=== PATIENT | male | born 1950 | race Caucasian/White ===

== ENCOUNTER 2024-11-14 20:15 | Inpatient (IN) | payer MEDICARE, BC, SELFPAY ==
[2024-11-14 13:02] VITALS: BP 95/53
[2024-11-14 13:34] LABS: Hematocrit 41.2 % (39.0-52.0); Hemoglobin 14.3 g/dL (13.0-18.0); Mean Corp Hgb Conc. 34.7 g/dL (33.0-37.0); Mean Corpuscular Hgb 32.6 pg (27.0-31.0); Mean Corpuscular Volume 94.1 fL (80.0-94.0); Mean Platelet Volume 10.5 fL (7.4-10.4); Platelet Count 272 10^3/uL (130-400); Red Blood Cell Count 4.38 10^6/uL (4.70-6.10); Red Cell Dist. Width 14.2 % (11.5-14.5); White Blood Cell Count 30.4 10^3/uL (4.8-10.8)
[2024-11-14 13:47] LABS: ALT (SGPT) 17 U/L (0-50); AST (SGOT) 21 U/L (17-59); Albumin 4.3 g/dl (3.5-5.0); Alkaline Phosphatase 61 U/L (38-126); Blood Urea Nitrogen 26 mg/dl (9-20); Calcium 10.1 mg/dl (8.4-10.2); Carbon Dioxide 21 mmol/L (22-30); Chloride 106 mmol/L (98-107); Glucose 164 mg/dl (70-99); Lipase 30 U/L (23-300); Potassium 4.4 mmol/L (3.5-5.1); Sodium 137 mmol/L (135-145); Total Bilirubin 2.6 mg/dl (0.2-1.3); Total Protein 7.7 g/dl (6.3-8.2); eGFR 47.95
[2024-11-14 14:13] LABS: % Basophils 0.3 % (0-2); % Immature Granulocytes 0.7 % (0-0.5); % Lymphocytes 3.2 % (20.5-51.1); % Monocytes 3.5 % (1.7-9.3); % Neutrophils 92.3 % (42.2-75.2); Absolute Basophils 0.1 10^3/uL (0-0.2); Absolute Immature Granulocytes 0.2 10^3/uL (0-0.05); Absolute Monocytes 1.1 10^3/uL (0.1-0.6); Absolute Neutrophils 28.1 10^3/uL (1.4-6.5); Nucleated Red Blood Cells % 0 % (-)
--- NOTE | 2024-11-14 15:46 | ED.GENMED ---
History of Present Illness
General
Chief Complaint: Abdominal Pain
Source: patient
Exam Limitations: none
Time Seen by Provider: 11/14/24 14:48
Nursing documentation reviewed up to this point in time: agreed with
History of Present Illness
History of Present Illness:
Patient is a 74-year-old male past medical history of diverticulitis with colectomy done in August 2024 however tumor, prediabetes hypertension A-fib on Eliquis presents to the ER for left lower quadrant pain that woke him up around 1 AM. Patient
reports pain is now throughout the abdomen. He denies any fever chills nausea vomiting.
Review of Systems
Review of Systems
Allergies reviewed?: Yes
All Other Systems: ROS reviewed and negative except as documented in HPI and ROS
Constitutional: Reports no symptoms; Denies fever, fatigue or chills
Respiratory: Reports no symptoms
Cardiac: Reports no symptoms
ABD/GI: Reports abdominal pain; Denies nausea, vomiting or diarrhea
: Reports no symptoms
Musculoskeletal: Reports no symptoms
Skin: Reports no symptoms
Neurological: Reports no symptoms
Psychiatric: Reports no symptoms
Phy Exam
General Physical Exam
General Presentation: no apparent distress
General age: appears stated age
General Skin: warm and dry
General Habitus: normal
General Mental: alert
General Hydration: dry mucous membranes
Gastrointestinal Exam
Gastrointestinal Exam: soft and other (Tender throughout however worse in the left lower quadrant)
Neurological Exam
Neurological Exam: alert and oriented x3
Musculoskeletal Exam
Musculoskeletal Exam: full ROM
Skin Exam
Skin Exam: normal color and warm/dry
Psychiatric Exam
Psychiatric Exam: normal mood/affect
Course
Orders/Labs/Results
Orders:
Orders
11/14/24 13:15
Complete Blood Count/With Diff Urgent
Comprehensive Metabolic Panel Urgent
Lipase Urgent
11/14/24 15:52
0.9% Sodium Chloride 1000 ml [Nss] 1,000 ml IV BOLUS
11/14/24 16:02
Iohexol [Omnipaque] 50 ml .ROUTE .[facility]
11/14/24 16:04
CT Abd/pel W Iv And Oral Contr Urgent
Comment:
Reason For Exam: left sided abd pain hx of divertilulitis /resectio
Iohexol [Omnipaque] See Protocol PO NOW STA
11/14/24 18:57
Piperacillin/Tazo 3.375 Gram [Zosyn] 3.375 gram in 50 ml IV NOW
11/14/24 19:15
0.9% Sodium Chloride 1000 ml [Nss] 1,000 ml IV 150 mls/hr
Abnormal Lab Results
11/14/24
13:15
WBC 30.4 H 10^3/uL
(4.8-10.8)
RBC 4.38 L 10^6/uL
(4.70-6.10)
MCV 94.1 H fL
(80.0-94.0)
MCH 32.6 H pg
(27.0-31.0)
MPV 10.5 H fL
(7.4-10.4)
Abs Immat Gran (auto) 0.2 H 10^3/uL
(0-0.05)
Absolute Neuts (auto) 28.1 H 10^3/uL
(1.4-6.5)
Absolute Lymphs (auto) 1.0 L 10^3/uL
(1.2-3.4)
Absolute Monos (auto) 1.1 H 10^3/uL
(0.1-0.6)
Immature Gran % 0.7 H %
(0-0.5)
Neutrophils % 92.3 H %
(42.2-75.2)
Lymphocytes % 3.2 L %
(20.5-51.1)
Carbon Dioxide 21 L mmol/L
(22-30)
BUN 26 H mg/dl
(9-20)
Creatinine 1.5 H mg/dL
(0.7-1.3)
Glucose 164 H mg/dl
(70-99)
Total Bilirubin 2.6 H mg/dl
(0.2-1.3)
11/14/24 13:15
11/14/24 13:15
Vital Signs
Initial and Last Documented VS:
Initial Vital Signs
Temp Pulse Resp BP Pulse Ox
98.4 F 103 16 95/53 98
11/14/24 13:02 11/14/24 13:02 11/14/24 13:02 11/14/24 13:02 11/14/24 13:02
Last Documented Vital Signs
Temp Pulse Resp BP Pulse Ox
99.4 F 107 27 105/52 98
11/14/24 19:01 11/14/24 17:45 11/14/24 17:45 11/14/24 17:00 11/14/24 17:45
Automatic Riveting Machine Operator consulted with Physician
Automatic Riveting Machine Operator consulted with physician?: Yes
Name of Physician Consulted: Zandra
MDM/Problems Addressed
Differential Diagnosis Includes:
Not limited colitis diverticulitis
MDM/Problems Addressed:
As documented patient is a 74-year male with history of diverticulitis with resection this was done August 2024 at [facility]. He presented with left-sided abdominal pain which has spread throughout the abdomen. He is very tender to palpation.
He presents afebrile however his white count is elevated at 30,000. As per radiology patient does have free air on the CAT scan secondary to a perforated diverticulitis of the descending colon.
Patient was given fluids upon presentation. IV Zosyn ordered now. Will also order maintenance fluids. Patient did not want any pain medication and is clinically stable on exam. case d/c w/ DR De Paz.
Case reviewed with colorectal on-call who looked at scans and will take patient to the OR. Lactic ordered
Chronic conditions affecting care:
History of diverticulitis
*Radiology
Radiology exam reviewed: radiology read reviewed
*Pulse Oximetry
Patient hypoxic: no
*Critical Care Note
Total Time (30-74mins, 75-104mins- exclusive of procedures): Not Applicable
comment:
Critical care statement: A total of 35 minutes of critical care time was provided for this patient. This includes management of unstable vital signs, evaluation of the patient at bedside, reviewing the patient's pertinent medical records, discussion
with consultants, review of old EKGs and review of pertinent medical records. This time with separate from time utilized to perform the aforementioned documented procedures
Patient Management
Discussion with other providers: Software Integrator (Dr Sandoval )
ED Attending Note
-
Portions of this chart may have been created with voice recognition software.� Occasional wrong word or��sound alike� substitutions may have occurred due to the inherent limitations of voice recognition software.
Discharge Plan
Departure
Patient Disposition: OR
Date of Disposition: 11/14/24
Time of Disposition: 19:26
Admit to: OR
Presentation/result/management discussed w/ accepting MD/DO: Hospitalist
Patient with high blood pressure during this ER visit?: No
Condition: Fair
Discharge Problem:
Perforated diverticulitis
Prescriptions:
No Action
multivitamin Tablet
1 tab PO DAILY
digestive enzymes Tablet
1 tab PO DAILY
furosemide 40 mg Tablet
40 mg PO DAILY
ascorbic acid (vitamin C) [Vitamin C] 1,000 mg Tablet
1,000 mg PO DAILY
famotidine 40 mg Tablet
40 mg PO DAILY
famotidine [Pepcid] 40 mg Tablet
40 mg PO DAILY
cyanocobalamin (vitamin B-12) [Vitamin B-12] 1,000 mcg Tablet
1,000 mcg PO DAILY
simvastatin 20 mg Tablet
20 mg PO DAILY
metoprolol tartrate 50 mg Tablet
50 mg PO DAILY
aspirin 81 mg Tablet
81 mg PO DAILY
fluoxetine 20 mg Capsule
20 mg PO DAILY
loratadine [Claritin] 10 mg Tablet
10 mg PO DAILY PRN (Reason: allergies)
dutasteride 0.5 mg Capsule
0.5 mg PO DAILY
metoprolol tartrate 25 mg Tablet
25 mg PO HS
Eliquis 5 mg Tablet
5 mg PO BID
Gemtesa 75 mg Tablet
75 mg PO DAILY
Referrals:
Cristin Kan PA [Family Provider, Family Practice]
Interventions
Interventions:
*Risk Screen - Suicide Last Done: 11/14/24 13:02
*General Assessment Last Done: 11/14/24 17:48
*Neglect/Abuse Screening Last Done: 11/14/24 13:02
*ED- Fall Risk Assessment Last Done: 11/14/24 17:48
*ED COVID-19 Vaccine History Last Done: 11/14/24 17:48
GJ-Ichlxg-Gkksinufso Assessment Last Done: 11/14/24 17:47
Discharge Date and Time
Print Language: HUNGARIAN
[2024-11-14] MEDS: OMNIPAQUE 50 ML PO (16:09)
[2024-11-14] MEDS: NSS 1000 IV ×2 (16:09→19:06)
[2024-11-14 16:38] VITALS: BP 112/53
[2024-11-14 17:00] VITALS: BP 105/52
[2024-11-14 19:01] VITALS: BMI 36.8
[2024-11-14] MEDS: ZOSYN 50 IV (19:09)
--- NOTE | 2024-11-14 19:40 | HPS.HSE ---
Family Physician
-
Family Physician: SHEKHAR Quevedo
Chief Complaint
-
Abdominal pain
History of Present Illness
This is a 74-year-old with past medical history significant for atrial fibrillation on anticoagulation with apixaban, CHF with preserved EF, hypertension, prior history of PE, recent history of diverticulitis status post colectomy and reanastomosis,
BPH, GERD presenting to the emergency department with approximately 1 day of worsening abdominal pain.
Patient reports doing well up until last evening after a large meal. At around 1 AM he reported left lower quadrant abdominal pain that is recorded as severe and associated with chills. The pain seems to be send the lower in the abdomen at around
4 AM. He reported the chills but no diaphoresis. He did not measure a temperature at home. Denied any nausea or vomiting. He states that he thought maybe he had constipation because he has not had a bowel movement in over 24 hours. However the
pain worsened and he was brought into the emergency department. He has no urinary symptoms.
In the emergency department patient had a temp of 99.4, blood pressure was 100/50 with a pulse rate of 107 and was satting 98% on room air. Her white count was 30.4, normal platelets and hemoglobin. His electrolytes were within normal limits.
BUN/creatinine slightly elevated at 26 and 1.5 with a glucose of 164. Total bilirubin was 2.6. Rest of the LFTs and lipase were normal.
CT of the abdomen pelvis shows pneumoperitoneum indicating a perforated viscus. More localized gas and fluid in the left hemiabdomen lateral to the descending colon suggestive of a perforated diverticulitis.
Medical History
Past Medical History
Past Medical History: Reports Other
Additional Past Medical History:
Obstructive sleep apnea on CPAP
Atrial fibrillation on anticoagulation
Diverticulitis status post colectomy in August 2024
BPH
DVT
Pulmonary embolism
History of subdural hematoma status post surgery in
Past Surgical History: Reports Bowel Resection, Brain and Orthopedic (Left knee replacement)
Social History
Tobacco: Non-smoker
Alcohol: None
Drug: None
Personal:
Living: With Family
Family History
Family History: Not pertinent
Allergies / Home Medications
Allergies reflects when Allergies were last updated in [facility].
Home Medications with original date entered in [facility]
Allergy/Medication List:
Allergies
Allergy/AdvReac Type Severity Reaction Status Date / Time
No Known Allergies Allergy Unverified 11/14/24 13:02
Home Medications
apixaban 5 mg tablet (Eliquis) 5 mg PO BID 11/14/24
ascorbic acid (vitamin C) 1,000 mg tablet (Vitamin C) 1,000 mg PO DAILY 11/14/24
aspirin 81 mg tablet 81 mg PO DAILY 11/14/24
cyanocobalamin (vitamin B-12) 1,000 mcg tablet (Vitamin B-12) 1,000 mcg PO DAILY 11/14/24
digestive enzymes 1 tab PO DAILY 11/14/24
dutasteride 0.5 mg capsule 0.5 mg PO DAILY 11/14/24
famotidine 40 mg tablet 40 mg PO DAILY 11/14/24
famotidine 40 mg tablet (Pepcid) 40 mg PO DAILY 11/14/24
fluoxetine 20 mg capsule 20 mg PO DAILY 11/14/24
furosemide 40 mg tablet 40 mg PO DAILY 11/14/24
loratadine 10 mg tablet (Claritin) 10 mg PO DAILY PRN allergies 11/14/24
metoprolol tartrate 25 mg tablet 25 mg PO HS 11/14/24
metoprolol tartrate 50 mg tablet 50 mg PO DAILY 11/14/24
multivitamin 1 tab PO DAILY 11/14/24
simvastatin 20 mg tablet 20 mg PO DAILY 11/14/24
vibegron 75 mg tablet (Gemtesa) 75 mg PO DAILY 11/14/24
Review of Systems
-
Constitutional: Reports No Symptoms
EENT: Reports No Symptoms
Respiratory: Reports No Symptoms
Cardiac: Reports No Symptoms
Abdomen/GI: Reports Abdominal Pain
: Reports No Symptoms
Musculoskeletal: Reports No Symptoms
Skin: Reports No Symptoms
Neurological: Reports No Symptoms
Endocrine: Reports No Symptoms
Hematologic/Lymphatic: Reports No Symptoms
Psych: Reports No Symptoms
Physical Exam
Vital Signs
Vital Signs
Temp Pulse Resp BP Pulse Ox
99.4 F 107 27 105/52 98
11/14/24 19:01 11/14/24 17:45 11/14/24 17:45 11/14/24 17:00 11/14/24 17:45
Physical Exam
General: Well Developed, Well Nourished and No Apparent Distress
HEENT: NormoCephalic, Moist mucous membranes and Atraumatic
Respiratory: Clear
Cardiac: S1/S2 and Regular Rhythm; No Murmur or Rub
GI: Soft, Normal Bowel Sounds, Tender and Distended; No Organomegaly
Rectal: Deferred by Provider
Musculoskeletal: No Clubbing, No Cyanosis and No Edema
Skin: No Rash
Neuro: AO x 3 and Nonfocal/grossly intact
Laboratory Results
-
11/14/24 13:15
11/14/24 13:15
Laboratory Results
Lactic Acid Cancelled 11/14/24 19:30
Total Bilirubin 2.6 mg/dl (0.2-1.3) H 11/14/24 13:15
AST 21 U/L (17-59) 11/14/24 13:15
ALT 17 U/L (0-50) 11/14/24 13:15
Alkaline Phosphatase 61 U/L (38-126) 11/14/24 13:15
Lipase 30 U/L (23-300) 11/14/24 13:15
Data Reviewed
-
CT Scan: Report Reviewed by me
Lab Data: Labs Reviewed by me
Old Records: Reviewed
Impression/Plan
-
IMPRESSION:
74-year-old male with past medical history of atrial fibrillation on anticoagulation, prior pulmonary embolism and DVT, hypertension, CHF with preserved EF, SARAH on CPAP, BPH, recent episode of diverticulitis status post colectomy [facility] coming into the emergency department with 1 day of abdominal pain and was found to have a perforated diverticulitis. He is hemodynamically stable and afebrile at this time. Leukocytosis to 30. Remarkably well-appearing but tender to
palpation on examination. Images reviewed by surgery. Will be going to the OR very shortly.
PLAN:
Diverticulitis with perforated viscus - s/p exploratory laparotomy, takedown splenic flexure, drainage intra-abdominal abscess, creation end colostomy
- Perioperative and operative management per surgery
- sent to med/surg post op
- n.p.o for now
- blood cultures sent, specimen
- IV Zosyn continued
- maintenance fluids with D5 LR 75ml/hr
- Holding anticoagulation and aspirin till bleeding risk reassessed.
- Holding Lasix
- holding po medications for now
AFIB -sinus tachycardia at this time
-Holding p.o. medications, restart metop when tolerating po
-Holding Eliquis, restart anticoagulation after operative risk of bleeding assessed by surgery (usually 2 days after)
CHF -euvolemic
-Monitor for now, hold Lasix 40mg until tolerating p.o.
SARAH -
- CPAP HS
DVT PPX - SCD, AC on hold, restart Eliquis 2 days after procedure, if bleeding delays restart or intolerant of po can start lovenox for DVT PPX
Code status - Full Code
[2024-11-14 19:58] LABS: Lactic Acid 1.5 mmol/L (0.7-2.0)
--- NOTE | 2024-11-14 20:56 | CON.GS ---
Addendum entered and electronically signed by Sahil Sandoval MD 11/15/24 00:25:
Last dose eliquis this am
Original Note:
Consultation
-
Date/Time Consultation Performed: 11/14/24
Requesting Provider: Preet
Performing Provider: Jaime
Reason for Consultation: Perforated diverticulitis
Medical History
-
Chief Complaint: Abd pain
History of Present Illness:
74M with acute onset abd pain that began lst night. He has not had a BM for 3 days which is not normal for him. Pain localized to LLQ, no radiation, began 1AM. progressive and severe, a/w chills. Denies fever, denies n/v. No exacerbating or
relieving factors.
Past Medical History
Past Medical History: Other (Obstructive sleep apnea on CPAP Atrial fibrillation on anticoagulation Diverticulitis status post colectomy in August 2024 BPH DVT Pulmonary embolism History of subdural hematoma status post surgery in )
Past Surgical History: Bowel Resection (robotic sigmoidectomy), Brain (SDH) and Orthopedic (left knee)
Social History
Tobacco: Non-Smoker
Alcohol: None
Drug: None
Personal:
Family History
Family History: Reviewed & Noncontributory
Allergies / Home Medications
Allergy/AdvReac Type Severity Reaction Status Date / Time
No Known Allergies Allergy Unverified 11/14/24 13:02
�Medication �Instructions �Recorded �Confirmed �Type
apixaban 5 mg tablet (Eliquis) 5 mg PO BID 11/14/24 11/14/24 History
ascorbic acid (vitamin C) 1,000 mg 1,000 mg PO DAILY 11/14/24 11/14/24 History
tablet (Vitamin C)
aspirin 81 mg tablet 81 mg PO DAILY 11/14/24 11/14/24 History
cyanocobalamin (vitamin B-12) 1,000 mcg PO DAILY 11/14/24 11/14/24 History
1,000 mcg tablet (Vitamin B-12)
digestive enzymes 1 tab PO DAILY 11/14/24 11/14/24 History
dutasteride 0.5 mg capsule 0.5 mg PO DAILY 11/14/24 11/14/24 History
famotidine 40 mg tablet 40 mg PO DAILY 11/14/24 11/14/24 History
famotidine 40 mg tablet (Pepcid) 40 mg PO DAILY 11/14/24 11/14/24 History
fluoxetine 20 mg capsule 20 mg PO DAILY 11/14/24 11/14/24 History
furosemide 40 mg tablet 40 mg PO DAILY 11/14/24 11/14/24 History
loratadine 10 mg tablet (Claritin) 10 mg PO DAILY PRN allergies 11/14/24 11/14/24 History
metoprolol tartrate 25 mg tablet 25 mg PO HS 11/14/24 11/14/24 History
metoprolol tartrate 50 mg tablet 50 mg PO DAILY 11/14/24 11/14/24 History
multivitamin 1 tab PO DAILY 11/14/24 11/14/24 History
simvastatin 20 mg tablet 20 mg PO DAILY 11/14/24 11/14/24 History
vibegron 75 mg tablet (Gemtesa) 75 mg PO DAILY 11/14/24 11/14/24 History
Review of Systems
-
A 10 point review of systems was completed, and was negative except as per HPI.
Physical Exam
Vital Signs
Temp Pulse Resp BP Pulse Ox
99.4 F 107 27 105/52 98
11/14/24 19:01 11/14/24 17:45 11/14/24 17:45 11/14/24 17:00 11/14/24 17:45
11/13/24 11/14/24 11/15/24
06:59 06:59 06:59
Actual Weight 106.594 kg
Body Mass Index (BMI) 36.8
Lab Results
11/14/24 13:15
11/14/24 13:15
WBC 30.4 10^3/uL (4.8-10.8) H 11/14/24 13:15
Hgb 14.3 g/dL (13.0-18.0) 11/14/24 13:15
Hct 41.2 % (39.0-52.0) 11/14/24 13:15
Plt Count 272 10^3/uL (130-400) 11/14/24 13:15
Abs Immat Gran (auto) 0.2 10^3/uL (0-0.05) H 11/14/24 13:15
Neutrophils % 92.3 % (42.2-75.2) H 11/14/24 13:15
Physical Exam
General: Well Developed, Well Nourished and No Apparent Distress
GI: Soft, Tender (Left elvia abdmoen ttp without r/r/g) and Distended
Skin: Warm and Dry
Neuro: AO x 3
Psych: Calm
Data Reviewed
-
CT Scan: Image Personally Visualized and interpreted, Report Reviewed by me, Discussed with Physician, Discussed with Patient and Discussed with Family
Labs: Labs Reviewed by me, Discussed with Physician, Discussed with Patient and Discussed with Family
Assessment / Plan
-
74M with sepsis 2/2 perforated diverticulitis
Tmax 99.4F
HR [address] with moderate free air, descending colon perforation with air/fluid lateral to left colon
Last dose eliquis unknown
OCTOR for ex lap, sigmidectomy, creation end colostomy
Informed consent obtained
[2024-11-15] VITALS (13 sets, daily range): BP systolic 50–127; BP diastolic 47–73; BMI 37.7
--- NOTE | 2024-11-15 00:25 | W.IMMPOSTOP ---
Addendum entered and electronically signed by Sahil Sandoval MD 11/15/24 00:36:
Daughter updated in [facility]
Original Note:
Surgical Immed Post Op Note
-
Primary Surgeon: Jaime
Pre-op Diagnosis: Perforated diverticulitis
Post-op Diagnosis: Same
Procedure Performed: Exploratory laparotomy, takedown splenic flexure, drainage intra-abdominal abscess, creation end colostomy
Anesthesia Type: GETA
Specimen / Cultures: Descending colon and splenic flexure
Estimated Blood Loss: 25cc
Complications: None immediate
Op time: 150 mins
Operative Findings: 150cc yellow pus in the belly, no stool, irrigated; lateral descending colon perforation partially contained by abdominal wall; abscess cavity opened and irrigated; 2-0 prolene tag at sigmoid stump; scarring along lateral
avascular plane and challenging dissection with many small bleeders controlled with 2-0 silk sutures; proximal descending colon and splenic flexure taken with voyant; transverse colon mobilized off gastro-colic ligament, middle colic artery palpated
with good pulse, distal transverse colon end colostomy, thick abdominal wall; 19 fr suresh drain to left paracolic gutter; unable to pass ngt - deferred
--- NOTE | 2024-11-15 00:50 | SUR.PHASEI ---
Rec'd sleepy in bbed HOB elevated low fowlers by PACU, not responsive snoring, L roxanne with good wave form, correlates with cuff, hoffman to bsd cl yellow urine, SUSAN charged with dark red seriosang drainage, stoma pink
--- NOTE | 2024-11-15 01:08 | SUR.PHASEI ---
Arouses easily, oriented x 3 by RN, reassured, daughter in, vss, denies pain, discomfort
[2024-11-15] MEDS: D5LR 1000 IV (02:00)
[2024-11-15] MEDS: ZOSYN 50 IV ×4 (02:08→19:51)
[2024-11-15 07:43] LABS: Hematocrit 37.6 % (39.0-52.0); Hemoglobin 12.5 g/dL (13.0-18.0); Mean Corp Hgb Conc. 33.2 g/dL (33.0-37.0); Mean Corpuscular Hgb 32.2 pg (27.0-31.0); Mean Corpuscular Volume 96.9 fL (80.0-94.0); Mean Platelet Volume 10.7 fL (7.4-10.4); Platelet Count 213 10^3/uL (130-400); Red Blood Cell Count 3.88 10^6/uL (4.70-6.10); Red Cell Dist. Width 14.6 % (11.5-14.5); White Blood Cell Count 23.8 10^3/uL (4.8-10.8)
[2024-11-15 08:17] LABS: Blood Urea Nitrogen 25 mg/dl (9-20); Calcium 7.9 mg/dl (8.4-10.2); Carbon Dioxide 24 mmol/L (22-30); Chloride 107 mmol/L (98-107); Estimated Creatinine Clearance 61 ml/min; Glucose 215 mg/dl (70-99); Magnesium 2.2 mg/dl (1.6-2.3); Potassium 4.5 mmol/L (3.5-5.1); Sodium 136 mmol/L (135-145); eGFR > 60.00
--- NOTE | 2024-11-15 10:08 | W.PN.GS2 ---
Today's Communication / Plan
-
NPO/IVF/Pain control
Assessment / Plan
-
74 yo male with h/o AFIB on Eliquis presenting with perforated diverticulitis and sepsis (improved)
POD #0 ex lap, takedown of the splenic flexure with drainage of intraabdominal abscess and end colostomy creation
AFVSS, tachycardia resolved
Leukocytosis trending down
Mild acute blood loss anemia secondary to intraoperative losses
JOHN improving
--NPO until good bowel recovery
--Follow labs
--C/W hoffman catheter
--Analgesics scheduled and prn. Hold NSAIDs for now given JOHN on presentation
--C/W SUSAN drain
--C/W IV zosyn
--IVF with NSS. Hyperglycemia present on AM labs, will d/c D5LR
--OOB/Ambulate
--IS while awake
--Stoma nurse consult
--VTE ppx with lovenox/scds
Medical management as per primary team
Subjective Data
-
Date of Service: November 15, 2024
Patient seen and examined at bedside with Dr. Patel. Denies n/v. Pain with movement but manageable. Denies SOB.
Objective Data
-
Intake and Output
11/14/24 11/15/24 11/16/24
06:59 06:59 06:59
Intake Total 550 / 550 50 / 50
Output Total 370 / 370
Balance 180 / 180 50 / 50
Intake:
IV fluids (Total) 500 / 500
normosol 200 / 200
IV piggybacks 50 / 50 50 / 50
Output:
Drain Output (Total) 120 / 120
Middle Abdomen Celso-Loyd 120 / 120
Urine, Hoffman 250 / 250
Vital Signs
Temp Pulse Resp BP Pulse Ox
97.6 F 98 18 111/65 99
11/15/24 07:50 11/15/24 07:50 11/15/24 07:50 11/15/24 07:50 11/15/24 07:50
Lab Results
11/15/24 07:13
11/15/24 07:13
Calcium 7.9 mg/dl (8.4-10.2) L D 11/15/24 07:13
Magnesium 2.2 mg/dl (1.6-2.3) 11/15/24 07:13
Total Bilirubin 2.6 mg/dl (0.2-1.3) H 11/14/24 13:15
AST 21 U/L (17-59) 11/14/24 13:15
ALT 17 U/L (0-50) 11/14/24 13:15
Alkaline Phosphatase 61 U/L (38-126) 11/14/24 13:15
Total Protein 7.7 g/dl (6.3-8.2) 11/14/24 13:15
Albumin 4.3 g/dl (3.5-5.0) 11/14/24 13:15
Physical Exam
-
NAD
ABD softly distended, incisional tenderness
Midline dressing intact. SUSAN with SSF.
Stoma pink, viable. Some bloody drainge in appliance, no flatus noted
Patient has a hoffman catheter: Yes
Patient has a central line: No
[2024-11-15] MEDS: NSS IV ×2 (10:40→10:41)
[2024-11-15] MEDS: DILAUDID 0.5 MG IV (10:47)
[2024-11-15] MEDS: NSS 1000 IV ×2 (10:50→21:44)
[2024-11-15] MEDS: OFIRMEV 100 IV ×3 (10:51→21:43)
--- NOTE | 2024-11-15 12:17 | W.PN.HOSP.TC ---
Today's Communication/Plan
-
Continued IV fluids. Diet per surgery.
Continue with Zosyn. Add micafungin. Consult ID.
Restart anticoagulation when okay from surgical standpoint.
Assessment / Plan
Assessment / Plan
IMPRESSION:
74-year-old male with past medical history of atrial fibrillation on anticoagulation, prior pulmonary embolism and DVT, hypertension, CHF with preserved EF, SARAH on CPAP, BPH, recent episode of diverticulitis status [facility]omy [facility] into the emergency department with 1 day of abdominal pain and was found to have a perforated diverticulitis.
PLAN:
Acute diverticulitis with perforated colon- s/p exploratory laparotomy, takedown splenic flexure, drainage intra-abdominal abscess, creation end colostomy
- Postoperative surgical management per surgery
-Diet per surgery
- blood cultures sent, specimen
- Currently on IV Zosyn. 150 cc of pus noted per pulm note. I would add coverage for antifungal. Start micafungin. Consult ID
- maintenance fluids with D5 LR 75ml/hr
- Holding anticoagulation and aspirin till bleeding risk reassessed.
- Holding Lasix
- holding po medications for now
AFIB
-Rate control. Continue until
-Holding p.o. medications, restart metop when tolerating po
-Holding Eliquis, restart anticoagulation after operative risk of bleeding assessed by surgery
CHF -euvolemic
-Monitor for now, hold Lasix 40mg until tolerating p.o.
SARAH -
- CPAP HS
DVT PPX - SCD, AC on hold, restart Eliquis when okay from surgery but in meantime sequential teds
Discussed with daughter at bedside
Total time spent on today's encounter was 52 minutes which included time spent in counseling the patient/family regarding diagnosis and treatment plan as listed above, goals of care, and symptom management. Case was discussed with nursing staff,
specialists, and care coordinators/case management. All labs and imaging personally reviewed by me. Remainder the time spent in detailed review of previous records, lab data, imaging, and other medical provider documentation.
Code status - Full Code
Anticipated Discharge: > 48 hours
Subjective/Interval History
-
Date of Service: November 15, 2024
Pain not much postsurgery.
Denies any nausea vomiting.
Denies any fever or chills.
Denies any shortness of breath or chest pain.
Objective Data
-
Labs:
Laboratory Results
11/15/24
07:13
WBC 23.8 H
Hgb 12.5 L
Hct 37.6 L
Plt Count 213 D
Sodium 136
Potassium 4.5
Chloride 107
Carbon Dioxide 24
BUN 25 H
Creatinine 1.2
Glucose 215 H
Calcium 7.9 L D
Vital Signs:
Vital Signs
Temp Pulse Resp BP Pulse Ox
97.8 F 77 16 92/47 98
11/15/24 11:25 11/15/24 11:25 11/15/24 11:25 11/15/24 11:25 11/15/24 11:25
I&O
11/14/24 11/15/24 11/16/24
06:59 06:59 06:59
Intake Total 550 / 550 50 / 50
Output Total 370 / 370 240 / 240
Balance 180 / 180 -190 / -190
Review of Systems
-
EENT: Denies Sore Throat
Respiratory: Denies Cough
Neuro: Denies Dizzy
Physical Exam
-
General: Comfortable
HEENT: Moist Mucous Membranes
Respiratory: Clear to Auscultation and Non Labored Respirations; Negative Accessory Resp Muscle Use
Cardiac: S1/S2 and Irregular Rhythm; Negative Tachycardic
GI: Soft, Ostomy and Other (SUSAN drain noted); Negative Normal Bowel Sounds
Neuro: AO x 3
Data Reviewed
-
Labs: Labs Reviewed by me
[2024-11-15] MEDS: PROTONIX IV 40 MG IV (12:19)
[2024-11-15] MEDS: NSS (PRESERVATIVE FREE) 10 ML IV (12:20)
--- NOTE | 2024-11-15 12:53 | CM ---
Addendum entered by Ivonne Hercules 11/15/24 13:16:
Referral to [facility] forwarded.
Original Note:
Initial assessment completed with patient with daughter Tammy in room. Patient lives alone in a 2 story plus basement home with 9 steps to enter, B/B on . [employer] patient was independent in ADL's and ambulation. He does not use any DME but does have
2 RW, SPC, rollator and stair glide in the home. He does drive. No services in the home. He was in the [employer]. He does have HC-PO[facility]. Patient has 3 daughters as a support system. After discharge he will be going to daughter Mary's home at [address] in [place] [address] Garrett. Pharmacy is [facility] on [address] in [place]. Discharge POC: Home with DIANNA RN.
--- NOTE | 2024-11-15 14:00 | WOUNDNOTE ---
[facility] RN note: Patient s/p colostomy today. Stoma dark pink with some bloody drainage. Appliance intact. Instructed patient how to open and close pouch, cutting wafer, snap on wafer. Patient lives alone but will be staying with his daughter initially.
Patient signed [employer] secure ostomy starter kit auth fax form. Patient stated his daughter Tammy can be contacted for teaching if she is available. Plan appliance change on . Ostomy supplies (Baring wafer # [id number], [employer] seals and
Baring pouch # [id number]) and colostomy teaching folder given.
--- NOTE | 2024-11-15 15:11 | CON.ID ---
Consultation
-
Date/Time Consultation Requested: 11/15/2024 1217
Date/Time Consultation Performed: 11/15/2024 1440
Requesting Provider: Dr. Harman
Performing Provider: Dr. Ingram
Reason for Consultation: Perforated viscus
Chief Complaint / Past History
History of Present Illness
Sy Garcia is a 74-year-old man being evaluated at the request of Dr. Harman in regards to perforated abdominal viscus. History is obtained from chart review, along with patient interview.
The patient has a history of diverticulitis, and reports that he underwent elective sigmoid resection at [facility] on 08/16/2024. He reports that he did well in the postop period, and had no known complications.
More recently, he recalls eating dinner 3 days ago and feeling well. The next day he developed some chills, but no fevers. He reports feeling slightly constipated, but denied any abdominal pain. Early Friday morning he developed acute left lower
quadrant discomfort, he came to the ER later that afternoon. Workup in the ER revealed pneumoperitoneum, and the patient was taken to the OR and underwent a left hemicolectomy. IntraOp notes indicate 150 cc of pus recovered. The patient was
placed on empiric antibiotics, and Infectious Diseases asked to comment on further antimicrobial therapy.
At the present time patient reports he is feeling improved. He notes pain is controlled. He denies any fevers.
Past History
Additional Past Medical History:
CHF
SARAH (CPAP)
A-fib
Diverticulitis
BPH
DVT/PE
Hx subdural
Additional Past Surgical History:
Sigmoid colectomy (08/16/2024)
Brain surgery
Left total knee
Allergy History:
No Known Allergies Allergy (Unverified 11/14/24 13:02)
Medications Reviewed: Yes
Current Antibiotics:
Zosyn
Micafungin
Social History
Tobacco: Non-Smoker
Alcohol: None
Drug: None
Personal:
Living: With Family
Employment: Retired
Review of Systems
Vital Signs
Temp Pulse Resp BP Pulse Ox
97.8 F 77 16 92/47 98
11/15/24 11:25 11/15/24 11:25 11/15/24 11:25 11/15/24 11:25 11/15/24 11:25
Physical Exam
Physical Exam
Constitutional: No Acute Distress, Comfortable and Non-toxic
Eyes: No Conjunctival Hemorrhage and Sclera Anicteric
Oral: No Thrush; Negative No Ulcers
Cardiovascular: Regular Rate and S1/S2; Negative S3/S4
Pulmonary: Clear; Negative Wheezes, Rales or Rhonchi
Gastrointestinal: Soft, Tender, Non Distended and Decreased Bowel Sounds
Extremities: Negative Edema, Cyanosis or Erythema
Neurological: Awake and Alert
Psychological: Calm
.
Lab / Diagnostic Study Results
11/15/24 07:13
11/15/24 07:13
Abs Immat Gran (auto) 0.2 10^3/uL (0-0.05) H 11/14/24 13:15
Absolute Neuts (auto) 28.1 10^3/uL (1.4-6.5) H 11/14/24 13:15
Absolute Lymphs (auto) 1.0 10^3/uL (1.2-3.4) L 11/14/24 13:15
Absolute Monos (auto) 1.1 10^3/uL (0.1-0.6) H 11/14/24 13:15
Absolute Basos (auto) 0.1 10^3/uL (0-0.2) 11/14/24 13:15
Immature Gran % 0.7 % (0-0.5) H 11/14/24 13:15
Neutrophils % 92.3 % (42.2-75.2) H 11/14/24 13:15
Lymphocytes % 3.2 % (20.5-51.1) L 11/14/24 13:15
Monocytes % 3.5 % (1.7-9.3) 11/14/24 13:15
Eosinophils % 0.0 % (0-6) 11/14/24 13:15
Basophils % 0.3 % (0-2) 11/14/24 13:15
Lactic Acid Cancelled 11/14/24 23:45
Microbiology Results
Micro:
11/14/24 19:35 Blood Culture - Pending
Blood/Venous
11/14/24 19:35 Blood Culture - Pending
Blood/Venous
No abdominal cultures sent
Imaging:
11/14/2024 CT abdomen/pelvis: Pneumoretroperitoneum seen. More localized gas and fluid in the left hemiabdomen lateral to the descending colon suggestive of a perforated diverticulum. Please see full dictation for additional detail.
Assessment / Plan
Perforated viscus (colon)
- S/p ex lap; end colostomy
Leukocytosis
JOHN; improved
CHF
SARAH (CPAP)
A-fib
BPH
DVT/PE
Hx subdural
Recommendations:
Continue with empiric Zosyn and micafungin for the present.
Trend white count and temperature curve.
Will continue to follow clinically for improvement.
Repeat blood cultures for temperature greater than 101 degrees.
Follow drain output
Care Review
Plan reviewed with: Physician (Hospitalist)
[2024-11-15] MEDS: MYCAMINE 105 MG IV (15:37)
[2024-11-15] MEDS: LOVENOX 40 MG SC (17:08)
[2024-11-16] VITALS (9 sets, daily range): BP systolic 117–144; BP diastolic 60–98; PULSE 79–95; BMI 35.7
[2024-11-16] MEDS: ZOSYN 50 IV ×4 (01:21→20:23)
[2024-11-16] MEDS: OFIRMEV 100 IV (03:26)
[2024-11-16 06:09] LABS: Hematocrit 33.7 % (39.0-52.0); Hemoglobin 11.2 g/dL (13.0-18.0); Mean Corp Hgb Conc. 33.2 g/dL (33.0-37.0); Mean Corpuscular Hgb 31.9 pg (27.0-31.0); Mean Platelet Volume 10.7 fL (7.4-10.4); Platelet Count 196 10^3/uL (130-400); Red Blood Cell Count 3.51 10^6/uL (4.70-6.10); Red Cell Dist. Width 14.6 % (11.5-14.5); White Blood Cell Count 21.3 10^3/uL (4.8-10.8)
[2024-11-16 06:33] LABS: Blood Urea Nitrogen 30 mg/dl (9-20); Calcium 7.9 mg/dl (8.4-10.2); Carbon Dioxide 25 mmol/L (22-30); Chloride 108 mmol/L (98-107); Estimated Creatinine Clearance 67 ml/min; Glucose 130 mg/dl (70-99); Magnesium 2.3 mg/dl (1.6-2.3); Potassium 4.1 mmol/L (3.5-5.1); Sodium 138 mmol/L (135-145); eGFR > 60.00
--- NOTE | 2024-11-16 09:08 | W.PN.GS2 ---
Today's Communication / Plan
-
Cld
miralax
hoffman out
restart ac/home meds
Assessment / Plan
-
74 yo male with h/o AFIB on Eliquis presenting with perforated diverticulitis and sepsis (improved)
POD #1 ex lap, takedown of the splenic flexure with drainage of intraabdominal abscess and end colostomy creation
AFVSS, tachycardia resolved
Leukocytosis trending down
Mild acute blood loss anemia secondary to intraoperative losses
Cr normalized
Passing stool and flatus via stoma
--Start clears
--Follow labs
--DC hoffman
--Analgesics prn. Hold NSAIDs for now given JOHN on presentation
--C/W SUSAN drain
--C/W IV zosyn
--IVF with NSS. Hyperglycemia present on AM labs, will d/c D5LR
--OOB/Ambulate
--IS while awake
--Stoma nurse consult
--VTE ppx with scds
--Restart home meds and eliquis
-- Start miralax
Medical management as per primary team
Subjective Data
-
Date of Service: November 16, 2024
AFVSS, ambulating, denies n/v, passing dark stool and flatus via stoma, pain well controlled
Objective Data
-
Intake and Output
11/15/24 11/16/24 11/17/24
06:59 06:59 06:59
Intake Total 550 / 550 305 / 305
Output Total 370 / 370 480 / 480
Balance 180 / 180 -175 / -175
Intake:
IV fluids (Total) 500 / 500
normosol 200 / 200
IV piggybacks 50 / 50 305 / 305
Output:
Drain Output (Total) 120 / 120 80 / 80
Middle Abdomen Celso-Loyd 120 / 120 80 / 80
Urine, Hoffman 250 / 250 400 / 400
Vital Signs
Temp Pulse Resp BP Pulse Ox
97.9 F 94 16 124/80 98
11/16/24 07:25 11/16/24 07:25 11/16/24 07:25 11/16/24 07:25 11/16/24 07:25
Lab Results
11/16/24 05:51
11/16/24 05:51
Calcium 7.9 mg/dl (8.4-10.2) L 11/16/24 05:51
Magnesium 2.3 mg/dl (1.6-2.3) 11/16/24 05:51
Total Bilirubin 2.6 mg/dl (0.2-1.3) H 11/14/24 13:15
AST 21 U/L (17-59) 11/14/24 13:15
ALT 17 U/L (0-50) 11/14/24 13:15
Alkaline Phosphatase 61 U/L (38-126) 11/14/24 13:15
Total Protein 7.7 g/dl (6.3-8.2) 11/14/24 13:15
Albumin 4.3 g/dl (3.5-5.0) 11/14/24 13:15
Physical Exam
-
Gen: NAD
Abd: soft, mod ttp diffusely, more on the right , stoma dusky with dark stool and gas in the bag, drain ss
Patient has a hoffman catheter: Yes
Patient has a central line: No
[2024-11-16] MEDS: NSS (PRESERVATIVE FREE) IV (09:17)
[2024-11-16] MEDS: PROTONIX IV IV (09:18)
[2024-11-16] MEDS: TYLENOL 1000 MG PO (10:13)
[2024-11-16] MEDS: PROSCAR 5 MG PO (10:16)
[2024-11-16] MEDS: DETROL LA 4 MG PO (10:16)
[2024-11-16] MEDS: PEPCID 40 MG PO (10:16)
[2024-11-16] MEDS: ASPIR LOW (ENTERIC COATED) 81 MG PO (10:16)
[2024-11-16] MEDS: MIRALAX 17 GRAMS PO (10:16)
[2024-11-16] MEDS: LOPRESSOR 50 MG PO (10:34)
--- NOTE | 2024-11-16 10:38 | W.PN.HOSP.TC ---
Today's Communication/Plan
-
Clear liquid diet. Continue with IV fluids till oral intake is adequate
Patient started on anticoagulation with Eliquis and gous-[id number]-[id number] heart rate on telemetry
PT eval
Hartman catheter to be discontinued
Assessment / Plan
Assessment / Plan
IMPRESSION:
74-year-old male with past medical history of atrial fibrillation on anticoagulation, prior pulmonary embolism and DVT, hypertension, CHF with preserved EF, SARAH on CPAP, BPH, recent episode of diverticulitis status post [facility]lectomy [facility] into [facility] emergency department with 1 day of abdominal pain and was found to have a perforated diverticulitis.
PLAN:
Acute diverticulitis with perforated colon- s/p exploratory laparotomy, takedown splenic flexure, drainage intra-abdominal abscess, creation end colostomy
- Postoperative surgical management per surgery
- Diet per surgery-start on clear liquid diet
- blood cultures negative so far
- Currently on antibacterial and antifungal. ID following
- Continue with IV fluids till oral intake is adequate
-
AFIB
- Poor rate control but patient without any chest pain or palpitation. Hemodynamic stable. Started back on his oral beta-rey today. Resumed Eliquis as surgery cleared for its use.
-Continue telemonitoring
CHF -euvolemic
- Resumed oral Lasix.
SARAH -
- CPAP HS
DVT PPX -patient on Eliquis. Can discontinue SCD/Lovenox
PT eval
Hartman catheter to be discontinued today
Discussed with RN.
Code status - Full Code
Anticipated Discharge: > 48 hours
Subjective/Interval History
-
Date of Service: November 16, 2024
Postoperative pain much under control.
Denies nausea vomiting. Currently cleared for clear liquid diet today.
Denies any chest pain or shortness of breath.
No lightheadedness.
No fever or chills.
Objective Data
-
Labs:
Laboratory Results
11/16/24
05:51
WBC 21.3 H
Hgb 11.2 L
Hct 33.7 L
Plt Count 196
Sodium 138
Potassium 4.1
Chloride 108 H
Carbon Dioxide 25
BUN 30 H
Creatinine 1.1
Glucose 130 H
Calcium 7.9 L
Vital Signs:
Vital Signs
Temp Pulse Resp BP Pulse Ox
97.9 F 94 16 124/80 98
11/16/24 07:25 11/16/24 07:25 11/16/24 07:25 11/16/24 07:25 11/16/24 07:25
I&O
11/15/24 11/16/24 11/17/24
06:59 06:59 06:59
Intake Total 550 / 550 305 / 305
Output Total 370 / 370 480 / 480
Balance 180 / 180 -175 / -175
Physical Exam
-
General: No Apparent Distress
Respiratory: Clear to Auscultation and Non Labored Respirations; Negative Accessory Resp Muscle Use
Cardiac: S1/S2, Irregular Rhythm and Tachycardic
GI: Soft, Nontender, Normal Bowel Sounds, Ostomy and Other (SUSAN drain in place)
Neuro: AO x 3
Data Reviewed
-
Labs: Labs Reviewed by me
--- NOTE | 2024-11-16 12:49 | CM ---
Reviewed the chart notes and spoke with the patient at the bedside. Referral for [facility] previously sent and accepted by [facility]. CM continues to be available to patient/family and is monitoring medical plan for needs at discharge.
Plan: Discharge to patient's daughter's home in [place] with [facility] when medically stable.
[facility] fax: [phone]
[2024-11-16] MEDS: NSS 1000 IV (13:07)
[2024-11-16] MEDS: MYCAMINE 105 MG IV (13:07)
--- NOTE | 2024-11-16 15:11 | WOUNDNOTE ---
WOC RN Note: t/c Spoke with Leonor from [employer] and ordered a [employer] ostomy secure starter kit for patient with patient's daughter's address per patient's request when asked yesterday.
--- NOTE | 2024-11-16 15:17 | W.PN.ID1 ---
Date of Service
Date of Service: November 16, 2024
Today's Communication
Continue antibiotics.
Assessment / Plan
Perforated viscus (colon)
- S/p ex lap; end colostomy
Leukocytosis
JOHN; improved
CHF
SARAH (CPAP)
A-fib
BPH
DVT/PE
Hx subdural
Recommendations:
Continue with empiric Zosyn and micafungin for today.
Trend white count and temperature curve.
Will continue to follow clinically for improvement.
Repeat blood cultures for temperature greater than 101 degrees.
Follow drain output
Chief Complaint
-: Other (Diverticular abscess)
Subjective / Review of Systems
Review of Systems: No Fever and No Chills
Vital Signs / Physical Exam
Vital Signs
Vital Signs
Temp Pulse Resp BP Pulse Ox
98.4 F 110 16 144/98 100
11/16/24 11:14 11/16/24 11:14 11/16/24 11:14 11/16/24 11:14 11/16/24 11:14
Physical Exam
Constitutional: No Acute Distress, Comfortable and Non-toxic
Eyes: Sclera Anicteric
Cardiovascular: S1/S2; Negative S3/S4
Pulmonary: Non Labored
Gastrointestinal: Soft, Normal Bowel Sounds, No Rebound, No Guarding and Other (Ostomy in place.)
Neurological: Awake and Alert
Psychological: Calm
Objective Data
Lab Data
Lab Results
11/16/24 05:51
11/16/24 05:51
Estimated Creat Clear 67 ml/min 11/16/24 05:51
Lactic Acid Cancelled 11/14/24 23:45
Total Bilirubin 2.6 mg/dl (0.2-1.3) H 11/14/24 13:15
AST 21 U/L (17-59) 11/14/24 13:15
ALT 17 U/L (0-50) 11/14/24 13:15
Alkaline Phosphatase 61 U/L (38-126) 11/14/24 13:15
Most recent labs reviewed.
Micro Results:
11/14/24 19:35 Blood Culture - Preliminary
Blood/Venous No Growth in 24 hours- Final report to follow
11/14/24 19:35 Blood Culture - Preliminary
Blood/Venous No Growth in 24 hours- Final report to follow
No abdominal cultures sent
Imaging:
11/14/2024 CT abdomen/pelvis: Pneumoretroperitoneum seen. More localized gas and fluid in the left hemiabdomen lateral to the descending colon suggestive of a perforated diverticulum. Please see full dictation for additional detail.
--- NOTE | 2024-11-16 15:42 | PN.CDI ---
CDI
- -
CDI:
Physician Documentation Request
Admit Date: 11/14/24 20:15
Dear Doctor Kimani,
Please review the following and provide your response in the progress notes.
Clinical Indicators:
The diagnosis of Sepsis was documented on general surgery progress notes 11/15 &11/16 but is not consistently noted in subsequent documentation.
Other:
Pt admitted with Acute diverticulitis with perforated colon- s/p exploratory laparotomy, takedown splenic flexure, drainage intra-abdominal abscess, creation end colostomy
Progress notes 11/15 & 11/16 general surgery,'74 yo male with h/o AFIB on Eliquis presenting with perforated diverticulitis and sepsis (improved)...'
On admission WBC 30.4, HR 103,Respirations 36
Pt currently on IV Zosyn /Micafungin
Please clarify the following:
____ - Sepsis was present on admission and is still being monitored, evaluated or treated
____ - Sepsis was ruled out
____ - Other ( please specify)
Use of terms such as suspected, likely, concern for, or probable (associated with a specific diagnosis that is being evaluated, monitored, or treated as if it exists) are acceptable and can be coded in the inpatient setting, when documented at the
time of discharge.
Thank you,
Karen Doshi RN
CDI Specialist
[facility]
Please use your independent medical judgment in providing your response.
[2024-11-16] MEDS: ELIQUIS 5 MG PO (20:23)
[2024-11-16] MEDS: LOPRESSOR 25 MG PO (20:51)
[2024-11-17] VITALS (7 sets, daily range): BP systolic 123–150; BP diastolic 62–88; PULSE 83; O2SAT 99
[2024-11-17] MEDS: ZOSYN 50 IV ×4 (01:21→19:29)
[2024-11-17] MEDS: NSS 1000 IV (03:47)
[2024-11-17 07:36] LABS: Hematocrit 31.5 % (39.0-52.0); Hemoglobin 10.9 g/dL (13.0-18.0); Mean Corp Hgb Conc. 34.6 g/dL (33.0-37.0); Mean Corpuscular Hgb 32.9 pg (27.0-31.0); Mean Corpuscular Volume 95.2 fL (80.0-94.0); Mean Platelet Volume 10.4 fL (7.4-10.4); Platelet Count 210 10^3/uL (130-400); Red Blood Cell Count 3.31 10^6/uL (4.70-6.10); Red Cell Dist. Width 14.6 % (11.5-14.5); White Blood Cell Count 16.6 10^3/uL (4.8-10.8)
[2024-11-17 08:07] LABS: Blood Urea Nitrogen 23 mg/dl (9-20); Calcium 7.7 mg/dl (8.4-10.2); Carbon Dioxide 25 mmol/L (22-30); Chloride 111 mmol/L (98-107); Estimated Creatinine Clearance 65 ml/min; Glucose 93 mg/dl (70-99); Potassium 4.2 mmol/L (3.5-5.1); Sodium 138 mmol/L (135-145); eGFR > 60.00
[2024-11-17] MEDS: LASIX 40 MG PO (08:27)
[2024-11-17] MEDS: VITAMIN C 1000 MG PO (08:27)
[2024-11-17] MEDS: ELIQUIS 5 MG PO ×2 (08:28→19:28)
[2024-11-17] MEDS: ASPIR LOW (ENTERIC COATED) 81 MG PO (08:28)
[2024-11-17] MEDS: VITAMIN B-12 1000 MCG PO (08:28)
[2024-11-17] MEDS: LOPRESSOR 50 MG PO (08:28)
[2024-11-17] MEDS: PROZAC 20 MG PO (08:28)
[2024-11-17] MEDS: PROSCAR 5 MG PO (08:28)
[2024-11-17] MEDS: PEPCID 40 MG PO (08:28)
[2024-11-17] MEDS: DETROL LA 4 MG PO (08:29)
[2024-11-17] MEDS: LIPITOR 10 MG PO (08:29)
[2024-11-17] MEDS: MIRALAX 17 GRAMS PO (08:30)
--- NOTE | 2024-11-17 09:24 | CM ---
Cm reviewed medical records. Patient remains acutely ill. CM will continue to follow.
PLAN: home with [facility] home care to daughter's home, ostomy supplies.
--- NOTE | 2024-11-17 09:44 | W.PN.GS2 ---
Today's Communication / Plan
-
Fulls
IV abx
Assessment / Plan
-
74 yo male with h/o AFIB on Eliquis presenting with perforated diverticulitis and sepsis (improved)
POD #2 ex lap, takedown of the splenic flexure with drainage of intraabdominal abscess and end colostomy creation
AFVSS, tachycardia resolved
Leukocytosis trending down
Mild acute blood loss anemia secondary to intraoperative losses
Cr normalized
Passing stool and flatus via stoma
--Adv to fulls
--Follow labs
--Analgesics prn. Hold NSAIDs for now given JOHN on presentation
--C/W SUSAN drain
--C/W IV zosyn
--Decr IVF
--OOB/Ambulate
--IS while awake
--Stoma nurse consult
--VTE ppx with scds
--Cont home meds and eliquis
--Cont miralax
Medical management as per primary team
Subjective Data
-
Date of Service: November 17, 2024
AFVSS, ambulating, voiding, passing flatus and stool via stoma, denies n/v, ayesha cld, pain controlled
Objective Data
-
Intake and Output
11/16/24 11/17/24 11/18/24
06:59 06:59 06:59
Intake Total 305 / 305 3805 / 3805
Output Total 480 / 480 1650 / 1650 600 / 600
Balance -175 / -175 2155 / 2155 -600 / -600
Intake:
Oral fluids 2640 / 2640
IV fluids (Total) 960 / 960
IV piggybacks 305 / 305 205 / 205
Output:
Drain Output (Total) 80 / 80 75 / 75
Middle Abdomen Celso-Loyd 80 / 80 75 / 75
Urine, Hoffman 400 / 400 625 / 625
Urine, Voided 950 / 950 600 / 600
Other:
Number of approximated MODERATE 2
amounts of urine
Number of approximated LARGE 1
amounts of urine
Number of unmeasured liquid
stools
Colostomy 20
Vital Signs
Temp Pulse Resp BP Pulse Ox
98.2 F 83 18 131/70 98
11/17/24 07:50 11/17/24 08:28 11/17/24 07:50 11/17/24 08:28 11/17/24 07:50
Lab Results
11/17/24 07:21
11/17/24 07:21
Calcium 7.7 mg/dl (8.4-10.2) L 11/17/24 07:21
Magnesium 2.3 mg/dl (1.6-2.3) 11/16/24 05:51
Total Bilirubin 2.6 mg/dl (0.2-1.3) H 11/14/24 13:15
AST 21 U/L (17-59) 11/14/24 13:15
ALT 17 U/L (0-50) 11/14/24 13:15
Alkaline Phosphatase 61 U/L (38-126) 11/14/24 13:15
Total Protein 7.7 g/dl (6.3-8.2) 11/14/24 13:15
Albumin 4.3 g/dl (3.5-5.0) 11/14/24 13:15
Physical Exam
-
Gen: NAD
Abd: soft, approp ttp, dressing cdi, stoma viable, pink medially and more purple laterally, brown stool and gas in the bag, drain ss
Patient has a hoffman catheter: No
Patient has a central line: No
--- NOTE | 2024-11-17 11:15 | WOUNDNOTE ---
WOC RN note: Confirmed with Dr. Sandoval can remove post op bordered dressing on abdominal midline and cover with ABD pad if has drainage otherwise can leave NATHANIEL during ostomy change teaching session tomorrow.
--- NOTE | 2024-11-17 11:42 | W.PN.HOSP.TC ---
Today's Communication/Plan
-
Advance diet per surgery
Continue with PT eval
Continue with IV antibiotics and antifungal
Assessment / Plan
Assessment / Plan
IMPRESSION:
74-year-old male with past medical history of atrial fibrillation on anticoagulation, prior pulmonary embolism and DVT, hypertension, CHF with preserved EF, SARAH on CPAP, BPH, recent episode of diverticulitis status post colectomy [facility] coming into the emergency department with 1 day of abdominal pain and was found to have a perforated diverticulitis.
PLAN:
Acute diverticulitis with perforated colon- s/p exploratory laparotomy, takedown splenic flexure, drainage intra-abdominal abscess, creation end colostomy
- Postoperative surgical management per surgery
- Diet per surgery-started on clear liquid diet-advance per surgery
- blood cultures negative so far
- Currently on antibacterial and antifungal. Improving white count. ID following
- Will DC further IV fluids as patient is tolerating oral liquids.
AFIB
- Improved rate control
-Continue his oral beta-rey
- Patient resumed on Eliquis since 11/16
-Continue telemonitoring
CHF -euvolemic
- Continue oral Lasix.
SARAH -
- CPAP HS
DVT PPX -patient on Eliquis.
Continue with PT eval
Code status - Full Code
Anticipated Discharge: 24 - 48 hours
Subjective/Interval History
-
Date of Service: November 17, 2024
Tolerating liquid diet
Objective Data
-
Labs:
Laboratory Results
11/17/24
07:21
WBC 16.6 H
Hgb 10.9 L
Hct 31.5 L
Plt Count 210
Sodium 138
Potassium 4.2
Chloride 111 H
Carbon Dioxide 25
BUN 23 H
Creatinine 1.1
Glucose 93
Calcium 7.7 L
Vital Signs:
Vital Signs
Temp Pulse Resp BP Pulse Ox
98.2 F 83 18 131/70 98
11/17/24 07:50 11/17/24 08:28 11/17/24 07:50 11/17/24 08:28 11/17/24 07:50
I&O
11/16/24 11/17/24 11/18/24
06:59 06:59 06:59
Intake Total 305 / 305 3805 / 3805 360 / 360
Output Total 480 / 480 1650 / 1650 600 / 600
Balance -175 / -175 2155 / 2155 -240 / -240
Review of Systems
-
Constitutional: Denies Fever
EENT: Denies Sore Throat
Respiratory: Denies Trouble Breathing
Cardiac: Denies Chest Pain
Abdomen/GI: Reports Abdominal Pain (well controlled); Denies Nausea or Vomiting
Genitourinary: Denies Dysuria
Neuro: Denies Dizzy
Physical Exam
-
General: Comfortable
Respiratory: Non Labored Respirations; Negative Accessory Resp Muscle Use
Cardiac: S1/S2 and Irregular Rhythm; Negative Tachycardic
GI: Soft, Nontender, Ostomy (some stools noted) and Other (bong drain present)
Musculoskeletal: No Edema
Neuro: AO x 3
Data Reviewed
-
Labs: Labs Reviewed by me
--- NOTE | 2024-11-17 12:05 | W.PN.ID1 ---
Date of Service
Date of Service: November 17, 2024
Today's Communication
Continue antibiotics.
Assessment / Plan
Perforated viscus (colon)
- S/p ex lap; end colostomy
Leukocytosis
JOHN; improved
CHF
SARAH (CPAP)
A-fib
BPH
DVT/PE
Hx subdural
Recommendations:
Continue with empiric Zosyn and micafungin for today.
Trend white count and temperature curve. Leukocytosis improved.
Will continue to follow clinically for improvement.
Repeat blood cultures for temperature greater than 101 degrees.
Follow drain output
����������������������������������������������������������
Chief Complaint
-: Other (Diverticular abscess)
Subjective / Review of Systems
Review of Systems: No Fever, No Chills and No Abdominal Pain
Vital Signs / Physical Exam
Vital Signs
Vital Signs
Temp Pulse Resp BP Pulse Ox
98.4 F 75 18 123/73 98
11/17/24 11:51 11/17/24 11:51 11/17/24 11:51 11/17/24 11:51 11/17/24 11:51
Physical Exam
Constitutional: No Acute Distress, Comfortable and Non-toxic
Eyes: Sclera Anicteric
Cardiovascular: S1/S2; Negative S3/S4
Pulmonary: Non Labored
Gastrointestinal: Soft, Normal Bowel Sounds, No Rebound, No Guarding and Other (Ostomy in place.)
Neurological: Awake and Alert
Psychological: Calm
Objective Data
Lab Data
Lab Results
11/17/24 07:21
11/17/24 07:21
Estimated Creat Clear 65 ml/min 11/17/24 07:21
Lactic Acid Cancelled 11/14/24 23:45
Total Bilirubin 2.6 mg/dl (0.2-1.3) H 11/14/24 13:15
AST 21 U/L (17-59) 11/14/24 13:15
ALT 17 U/L (0-50) 11/14/24 13:15
Alkaline Phosphatase 61 U/L (38-126) 11/14/24 13:15
Most recent labs reviewed.
Micro Results:
11/14/24 19:35 Blood Culture - Preliminary
Blood/Venous No Growth in 48 hours- Final report to follow
11/14/24 19:35 Blood Culture - Preliminary
Blood/Venous No Growth in 48 hours- Final report to follow
No abdominal cultures sent
Imaging:
11/14/2024 CT abdomen/pelvis: Pneumoretroperitoneum seen. More localized gas and fluid in the left hemiabdomen lateral to the descending colon suggestive of a perforated diverticulum. Please see full dictation for additional detail.
[2024-11-17] MEDS: MYCAMINE 105 MG IV (14:52)
[2024-11-17] MEDS: NSS IV (18:18)
[2024-11-17] MEDS: LOPRESSOR 25 MG PO (21:26)
[2024-11-18] VITALS (7 sets, daily range): BP systolic 123–156; BP diastolic 64–83; PULSE 81–84; BMI 38.2
[2024-11-18] MEDS: ZOSYN 50 IV ×4 (01:24→20:50)
[2024-11-18] MEDS: FLUSH (NSS) 1 FLUSH IV (01:24)
[2024-11-18 06:34] LABS: Hematocrit 33.1 % (39.0-52.0); Hemoglobin 11.1 g/dL (13.0-18.0); Mean Corp Hgb Conc. 33.5 g/dL (33.0-37.0); Mean Corpuscular Hgb 32.3 pg (27.0-31.0); Mean Corpuscular Volume 96.2 fL (80.0-94.0); Mean Platelet Volume 10.5 fL (7.4-10.4); Platelet Count 224 10^3/uL (130-400); Red Blood Cell Count 3.44 10^6/uL (4.70-6.10); Red Cell Dist. Width 14.4 % (11.5-14.5); White Blood Cell Count 13.6 10^3/uL (4.8-10.8)
--- NOTE | 2024-11-18 08:00 | W.PN.GS2 ---
Today's Communication / Plan
-
`
Assessment / Plan
-
Assessment: 74 yo male with h/o AFIB on Eliquis presenting with perforated diverticulitis and sepsis (improved)
POD #4 ex lap, takedown of the splenic flexure with drainage of intraabdominal abscess and end colostomy creation
AFVSS
Leukocytosis improving
Mild acute blood loss anemia secondary to intraoperative losses -stable
ostomy functional
Plan: Low residue diet
--Analgesics prn. Hold NSAIDs for now given JOHN on presentation
--C/W SUSAN drain (will remove prior to d/c)
--C/W IV zosyn and micafungin was added
--OOB/Ambulate/IS while awake
--Stoma nurse consult
--VTE ppx - scds/eliquis resumed post op
Subjective Data
-
Date of Service: November 18, 2024
pt seen and examined
post op pain controlled
ayesha diet advancement
some flatus from ostomy and liquid stools
ambulating and OOBTC during day
Objective Data
-
Intake and Output
11/17/24 11/18/24 11/19/24
06:59 06:59 06:59
Intake Total 3805 / 3805 2245 / 2245
Output Total 1650 / 1650 2285 / 2285
Balance 2155 / 2155 -40 / -40
Intake:
Oral fluids 2640 / 2640 1460 / 1460
IV fluids (Total) 960 / 960 480 / 480
IV piggybacks 205 / 205 305 / 305
Output:
Liquid stool amount 325 / 325
Colostomy 325 / 325
Drain Output (Total) 75 / 75 60 / 60
Middle Abdomen Celso-Loyd 75 / 75 60 / 60
Urine, Hartman 625 / 625
Urine, Voided 950 / 950 1900 / 1900
Other:
Number of approximated MODERATE 2
amounts of urine
Number of approximated LARGE 1
amounts of urine
Number of unmeasured liquid
stools
Colostomy 20
Vital Signs
Temp Pulse Resp BP Pulse Ox
98.7 F 78 16 137/73 97
11/18/24 03:40 11/18/24 03:40 11/18/24 03:40 11/18/24 03:40 11/18/24 03:40
Lab Results
11/18/24 05:38
11/17/24 07:21
Calcium 7.7 mg/dl (8.4-10.2) L 11/17/24 07:21
Magnesium 2.3 mg/dl (1.6-2.3) 11/16/24 05:51
Total Bilirubin 2.6 mg/dl (0.2-1.3) H 11/14/24 13:15
AST 21 U/L (17-59) 11/14/24 13:15
ALT 17 U/L (0-50) 11/14/24 13:15
Alkaline Phosphatase 61 U/L (38-126) 11/14/24 13:15
Total Protein 7.7 g/dl (6.3-8.2) 11/14/24 13:15
Albumin 4.3 g/dl (3.5-5.0) 11/14/24 13:15
Physical Exam
-
NAD AAOx3
ABD: soft, ND, minimal TTP at incision
midline incision with silver gauze dressing - mostly dry
ostomy left abd: a bit cyanotic but intact. liquid stool in appliance
[2024-11-18] MEDS: LIPITOR 10 MG PO (08:51)
[2024-11-18] MEDS: PROZAC 20 MG PO (08:51)
[2024-11-18] MEDS: ASPIR LOW (ENTERIC COATED) 81 MG PO (08:51)
[2024-11-18] MEDS: DETROL LA 4 MG PO (08:51)
[2024-11-18] MEDS: PEPCID 40 MG PO (08:52)
[2024-11-18] MEDS: PROSCAR 5 MG PO (08:52)
[2024-11-18] MEDS: ELIQUIS 5 MG PO ×2 (08:52→20:50)
[2024-11-18] MEDS: LOPRESSOR 50 MG PO (08:52)
[2024-11-18] MEDS: VITAMIN C 1000 MG PO (08:52)
[2024-11-18] MEDS: LASIX 40 MG PO (08:52)
[2024-11-18] MEDS: VITAMIN B-12 1000 MCG PO (08:52)
[2024-11-18] MEDS: MIRALAX 17 GRAMS PO (08:53)
[2024-11-18] MEDS: TYLENOL 1000 MG PO (08:53)
--- NOTE | 2024-11-18 09:45 | CM ---
Addendum entered by Maribell Dykes RN 11/18/24 16:00:
IMM reviewed.
Addendum entered by Maribell Dykes RN 11/18/24 09:49:
Correction: Home with [facility].
[facility]
Original Note:
Reviewed the chart notes and spoke with the patient at the bedside. Patient's diet advanced to low residue. CM continues to be available to patient/family and is monitoring medical plan for needs at discharge.
Plan: Discharge to patient's daughter initially with [facility] services.
--- NOTE | 2024-11-18 10:56 | W.PN.HOSP.TC ---
Addendum entered and electronically signed by Jason Harman MD 12/01/24 18:28:
Sepsis was present on admission and treated with antibacterial and antifungal medication and being monitored through the stay
Original Note:
Today's Communication/Plan
-
Low residue diet.
Continue with antibacterial/antifungal per ID
DC plan
Assessment / Plan
Assessment / Plan
IMPRESSION:
74-year-old male with past medical history of atrial fibrillation on anticoagulation, prior pulmonary embolism and DVT, hypertension, CHF with preserved EF, SARAH on CPAP, BPH, recent episode of diverticulitis status post colectomy [facility] coming into the emergency department with 1 day of abdominal pain and was found to have a perforated diverticulitis.
PLAN:
Acute diverticulitis with perforated colon- s/p exploratory laparotomy, takedown splenic flexure, drainage intra-abdominal abscess, creation end colostomy
- Functioning colostomy. Tolerating diet. Diet getting advanced to low residue diet today.
- Continue with SUSAN drain per surgery.
- Currently on antibacterial and antifungal. Improving white count. ID following
AFIB
- Rate controlled
-Continue his oral beta-rey
- Patient resumed on Eliquis since 11/16
-Continue telemonitoring
CHF -euvolemic
- Continue oral Lasix.
SARAH -
- CPAP HS
DVT PPX -patient on Eliquis.
Continue with PT eval
Code status - Full Code
DC in a.m. if tolerating diet.
Anticipated Discharge: Within 24 hours
Subjective/Interval History
-
Date of Service: November 18, 2024
Tolerating diet. Today advance to low residue diet per surgery.
Denies fever chills.
No shortness of breath or chest pain.
No palpitations.
Voicing no specific complaints.
Objective Data
-
Labs:
Laboratory Results
11/18/24
05:38
WBC 13.6 H
Hgb 11.1 L
Hct 33.1 L
Plt Count 224
Vital Signs:
Vital Signs
Temp Pulse Resp BP Pulse Ox
97.4 F 89 18 149/81 96
11/18/24 07:40 11/18/24 07:40 11/18/24 07:40 11/18/24 07:40 11/18/24 07:40
I&O
11/17/24 11/18/24 11/19/24
06:59 06:59 06:59
Intake Total 3805 / 3805 2245 / 2245
Output Total 1650 / 1650 2285 / 2285
Balance 2155 / 2155 -40 / -40
Physical Exam
-
General: Comfortable
Respiratory: Non Labored Respirations; Negative Accessory Resp Muscle Use
Cardiac: S1/S2 and Irregular Rhythm; Negative Tachycardic
GI: Soft, Nontender, Normal Bowel Sounds, Ostomy (Functional) and Other (SUSAN drain in place)
Neuro: AO x 3
Psych: Calm
Data Reviewed
-
Labs: Labs Reviewed by me
--- NOTE | 2024-11-18 12:27 | WOUNDNOTE ---
[facility] RN NOTE: Patient visited for ostomy teaching and appliance change. Stoma is flat and dark. Stoma feels warm and producing stool. Peristomal skin is intact. Picture of stoma sen to Dr. Harrison. Patient daughter, Marj present for ostomy
teaching. Pouch emptying, skin care, and appliance change all reviewed with patient and daughter. Midline dressing removed as requested. Ewing clean and intact. Midline wound covered with ABD and secured with tape. Many appropriate questions were
asked and answered by both patient and daughter. Pouch changed with Brandt Barrier # [id number], Eakins seal and Pouch # [id number]. Sacrum and heels intact. Plan is for patient to home with VN after discharge. More ostomy supplies ordered and at bedside.
SHOLA Aguirre given update. Will continue to follow during in-patient stay.
[2024-11-18] MEDS: MYCAMINE 105 MG IV (13:50)
--- NOTE | 2024-11-18 14:53 | W.PN.ID1 ---
Date of Service
Date of Service: November 18, 2024
Today's Communication
Continue antibiotics.
Assessment / Plan
Perforated viscus (colon)
- S/p ex lap; end colostomy
Leukocytosis
JOHN; improved
CHF
SARAH (CPAP)
A-fib
BPH
DVT/PE
Hx subdural
Recommendations:
Continue with empiric Zosyn and micafungin.
Trend white count and temperature curve. Leukocytosis continues to improve
Will continue to follow clinically for improvement.
Repeat blood cultures for temperature greater than 101 degrees.
����������������������������������������������������������
Chief Complaint
-: Other (Diverticular abscess)
Subjective / Review of Systems
Review of Systems: No Fever, No Chills and No Abdominal Pain
Vital Signs / Physical Exam
Vital Signs
Vital Signs
Temp Pulse Resp BP Pulse Ox
97.7 F 87 18 136/83 95
11/18/24 11:30 11/18/24 11:30 11/18/24 11:30 11/18/24 11:30 11/18/24 11:30
Physical Exam
Constitutional: No Acute Distress, Comfortable and Non-toxic
Eyes: Sclera Anicteric
Cardiovascular: S1/S2; Negative S3/S4
Pulmonary: Non Labored
Gastrointestinal: Soft, Normal Bowel Sounds, No Rebound, No Guarding and Other (Ostomy in place.)
Neurological: Awake and Alert
Psychological: Calm
Objective Data
Lab Data
Lab Results
11/18/24 05:38
11/17/24 07:21
Estimated Creat Clear 65 ml/min 11/17/24 07:21
Lactic Acid Cancelled 11/14/24 23:45
Total Bilirubin 2.6 mg/dl (0.2-1.3) H 11/14/24 13:15
AST 21 U/L (17-59) 11/14/24 13:15
ALT 17 U/L (0-50) 11/14/24 13:15
Alkaline Phosphatase 61 U/L (38-126) 11/14/24 13:15
Most recent labs reviewed.
Micro Results:
11/14/24 19:35 Blood Culture - Preliminary
Blood/Venous No Growth in 72 hours- Final report to follow
11/14/24 19:35 Blood Culture - Preliminary
Blood/Venous No Growth in 72 hours- Final report to follow
No abdominal cultures sent
Imaging:
11/14/2024 CT abdomen/pelvis: Pneumoretroperitoneum seen. More localized gas and fluid in the left hemiabdomen lateral to the descending colon suggestive of a perforated diverticulum. Please see full dictation for additional detail.
[2024-11-18] MEDS: ANESTHETIC LOZENGE 1 LOZENGE PO (20:50)
[2024-11-18] MEDS: LOPRESSOR 25 MG PO (21:51)
[2024-11-19 00:33] VITALS: BP 156/82
[2024-11-19] MEDS: ZOSYN 50 IV ×2 (01:10→08:48)
[2024-11-19 04:31] VITALS: BP 154/87
[2024-11-19 07:27] VITALS: BMI 37.7
[2024-11-19 07:58] VITALS: BP 145/82
[2024-11-19] MEDS: VITAMIN C 1000 MG PO (08:49)
[2024-11-19] MEDS: ELIQUIS 5 MG PO (08:49)
[2024-11-19] MEDS: LIPITOR 10 MG PO (08:50)
[2024-11-19] MEDS: LASIX 40 MG PO (08:50)
[2024-11-19] MEDS: DETROL LA 4 MG PO (08:50)
[2024-11-19] MEDS: ASPIR LOW (ENTERIC COATED) 81 MG PO (08:50)
--- NOTE | 2024-11-19 08:50 | W.PN.GS2 ---
Addendum entered and electronically signed by Sahil Sandoval MD 11/19/24 09:00:
I saw and examined the patient.
The Racing Driver's note was reviewed and I agree with the note.
Comment: Improving. Ambulating, pain controlled. stoma functioning, ayesha LRD. Exam approp, minimal drainage from lower midline incision, stoma slightly purple and edematous but viable and productive of stool and gas. OK for DC home with 5 days
augmentin and cont miralax. DC BONG prior to dc
Original Note:
Today's Communication / Plan
-
dispo planning
Assessment / Plan
-
Assessment: 74 yo male with h/o AFIB on Eliquis presenting with perforated diverticulitis and sepsis (improved)
POD #5 ex lap, takedown of the splenic flexure with drainage of intraabdominal abscess and end colostomy creation
AFVSS
Leukocytosis improving, labs pending for today
ostomy functional, tolerating diet
Plan: -- Low residue diet
--Analgesics prn.
--BONG removed at bedside
--C/W IV zosyn/micafungin while inpatient. D/W ID; ok to transition to PO augmentin upon dc
--OOB/Ambulate/IS while awake
--Stoma nurse following
--VTE ppx - scds/eliquis resumed post op
Ok for d/c from surgical standpoint. Reviewed d/c instructions with patient.
Subjective Data
-
Date of Service: November 19, 2024
Patient seen and examined at bedside. Denies n/v. Tolerating diet. Minimal incisional pain. OOB to chair.
Objective Data
-
Intake and Output
11/18/24 11/19/24 11/20/24
06:59 06:59 06:59
Intake Total 2245 / 2245 380 / 380 580 / 580
Output Total 2285 / 2285 375 / 375 90 / 90
Balance -40 / -40 5 / 5 490 / 490
Intake:
Oral fluids 1460 / 1460 380 / 380 480 / 480
IV fluids (Total) 480 / 480
IV piggybacks 305 / 305 100 / 100
Output:
Liquid stool amount 325 / 325 325 / 325 70 / 70
Colostomy 325 / 325 325 / 325 70 / 70
Drain Output (Total) 60 / 60 50 / 50 20 / 20
Middle Abdomen Celso-Loyd 60 / 60 50 / 50 20 / 20
Urine, Voided 1900 / 1900
Other:
Number of approximated MODERATE 1
amounts of urine
Vital Signs
Temp Pulse Resp BP Pulse Ox
98.5 F 89 16 145/82 96
11/19/24 07:58 11/19/24 07:58 11/19/24 07:58 11/19/24 07:58 11/19/24 07:58
Calcium 7.7 mg/dl (8.4-10.2) L 11/17/24 07:21
Magnesium 2.3 mg/dl (1.6-2.3) 11/16/24 05:51
Total Bilirubin 2.6 mg/dl (0.2-1.3) H 11/14/24 13:15
AST 21 U/L (17-59) 11/14/24 13:15
ALT 17 U/L (0-50) 11/14/24 13:15
Alkaline Phosphatase 61 U/L (38-126) 11/14/24 13:15
Total Protein 7.7 g/dl (6.3-8.2) 11/14/24 13:15
Albumin 4.3 g/dl (3.5-5.0) 11/14/24 13:15
Physical Exam
-
NAD AAOx3
ABD: soft, ND, minimal TTP at incision
midline incision with intact staple line, minimal SSF near umbilicus. dressing changed.
ostomy left abd: a bit cyanotic to the upper right side but intact. soft stool/flatus in appliance. bong ssf
[2024-11-19] MEDS: PROZAC 20 MG PO (08:51)
[2024-11-19] MEDS: PEPCID 40 MG PO (08:51)
[2024-11-19] MEDS: MIRALAX 17 GRAMS PO (08:51)
[2024-11-19] MEDS: VITAMIN B-12 1000 MCG PO (08:52)
[2024-11-19] MEDS: PROSCAR 5 MG PO (08:52)
[2024-11-19] MEDS: LOPRESSOR 50 MG PO (09:00)
--- NOTE | 2024-11-19 09:00 | OR.RPT ---
Operative Report
Operative Report
Primary Surgeon: Jaime
Pre-op Diagnosis: Perforated diverticulitis
Post-op Diagnosis: Same
Procedure Performed: Exploratory laparotomy, takedown splenic flexure, drainage intra-abdominal abscess, creation end colostomy
Anesthesia Type: GETA
Specimen / Cultures: Descending colon and splenic flexure
Estimated Blood Loss: 25cc
Complications: None immediate
Op time: 150 mins
Operative Findings: 150cc yellow pus in the belly, no stool, irrigated; lateral descending colon perforation partially contained by abdominal wall; abscess cavity opened and irrigated; 2-0 prolene tag at sigmoid stump; scarring along lateral
avascular plane and challenging dissection with many small bleeders controlled with 2-0 silk sutures; proximal descending colon and splenic flexure taken with voyant; transverse colon mobilized off gastro-colic ligament, middle colic artery palpated
with good pulse, distal transverse colon end colostomy, thick abdominal wall; 19 fr suresh drain to left paracolic gutter; unable to pass ngt - deferred
Date of surgery: 11/15/24
Indications: This 74M developed perforated diverticulitis and sepsis. Exploratory laparotomy with sigmoidectomy and end colostomy was planned.
Description of procedure: The patient was placed on the operating table in the supine position. General anesthesia was induced. A time-out was completed verifying correct patient, procedure, site, positioning, and special equipment prior to
beginning this procedure. A midline incision was made with cut cautery. This was carried down to the linea alba with coag cautery. The linea alba was divided and the abdomen entered. The left lateral abdomen was explored and yellow pus was
encountered, irrigated and suctioned. The left colon was mobilized off the abdominal wall. There was scarring here from prior sigmoidectomy and this added time to the dissection. Ultimately the entire left colon was mobilized. Lateral to the colon
an abscess pocket was entered. This was opened and fully explored, irrigated and suctioned. Medial to this the most diseased part of the colon was identified. This was resected with FREDY stapler and liberated from the mesentery with the voyant. A 2-0
prolene tag was placed on the sigmoid stump. There was minor bleeding from soft tissues throughout the case due to eliquis. Meticulous hemostasis was maintained with figure of eight ties as cautery was largely ineffective. The colon superior to this
area was inspected and did not appear healthy. The splenic flexure was taken down and ultimately resected. The middle colic artery was palpated and had a good pulse. The distal transverse colon was monitored and remained viable. It was mobilized
proximally past the midline approaching the hepatic flexure. A hole was created in the left upper quadrant of the abdominal wall and the skin and subcutaneous fat was cored out. The anterior fascia was incised in cruciate fashion and the rectus
muscles parted. The posterior sheath was incised and the defect was probed with two fingers that freely passed. The stapled end of the transverse colon was brought out through the defect and gently secured with a nelson. The small bowel was
returned to the abdomen. The abdomen was irrigated with several liters of warm saline until effluent ran clear. A 19fr suresh drain was placed into the left colic gutter and brought out through the left lower quadrant and secured with 2-0 nylon
suture. Several attempts were made to pass a nasogastric tube unsuccessfully. This step was abandoned. The bowel was mildly distended and the abdominal wall was obese and widely splayed. A #1 PDS stratfix was anchored to the superior and inferior
apexes of the wound and the abdomen was closed sequentially and ultimately came together with minimal tension. The subcutaneous tissue was irrigated with sterile saline and the skin was closed with sarah. The stoma was matured with 2-0 silk
sutures. A stoma appliance was placed.
A stoma appliance and a silver dressing and drain gauze were applied.
The patient tolerated the procedure well and was taken the PACU in stable condition.
[2024-11-19 09:25] LABS: Hematocrit 35.6 % (39.0-52.0); Hemoglobin 11.9 g/dL (13.0-18.0); Mean Corp Hgb Conc. 33.4 g/dL (33.0-37.0); Mean Corpuscular Hgb 32.2 pg (27.0-31.0); Mean Corpuscular Volume 96.5 fL (80.0-94.0); Mean Platelet Volume 10.2 fL (7.4-10.4); Platelet Count 272 10^3/uL (130-400); Red Blood Cell Count 3.69 10^6/uL (4.70-6.10); Red Cell Dist. Width 14.2 % (11.5-14.5); White Blood Cell Count 14.9 10^3/uL (4.8-10.8)
[2024-11-19 10:49] LABS: Vitamin D, 25-OH*** 36.3 ng/mL (30-80)
--- NOTE | 2024-11-19 11:00 | WOUNDNOTE ---
[facility] RN NOTE: Patient for possible discharge today. Ostomy appliance changed by this RN due to leaking with emptying pouch. All aspects of care reviewed with patient and daughter, Tammy. Patient given several changes of ostomy supplies, including
Jones seals. All questions answered.
--- NOTE | 2024-11-19 11:01 | CM ---
Addendum entered by Julita Burr 11/19/24 11:06:
please fax discharge summary to; [phone]
Original Note:
Patient seen at bedside 2 south. Patient with wound care. Patient to go to daughter's home and with [facility] for wound care supports. Patient completed IMM 11/18/24 and plan is for transportation home with family. CM will continue to follow for
discharge planning needs.
Plan; home with [facility] and family supports.
[2024-11-19 11:29] VITALS: BP 124/70
--- NOTE | 2024-11-19 14:18 | W.PN.ID1 ---
Date of Service
Date of Service: November 19, 2024
Today's Communication
Continue antibiotics. Transition to oral Augmentin. See below�
Assessment / Plan
Perforated viscus (colon)
- S/p ex lap; end colostomy; washout
Leukocytosis; overall improved
JOHN; improved
CHF
SARAH (CPAP)
A-fib
BPH
DVT/PE
Hx subdural
Recommendations:
Patient without fevers. Patient without abdominal pain. White count has overall improved, although remains slightly elevated.
D/C further micafungin.
Transition to Augmentin 875 mg p.o. twice daily, to continue for an additional 7 days.
F/U CBC in a week.
����������������������������������������������������������
Chief Complaint
-: Other (Diverticular abscess)
Subjective / Review of Systems
Review of Systems: No Fever, No Chills and No Abdominal Pain
Vital Signs / Physical Exam
Vital Signs
Vital Signs
Temp Pulse Resp BP Pulse Ox
98.4 F 77 18 124/70 96
11/19/24 11:29 11/19/24 11:29 11/19/24 11:29 11/19/24 11:29 11/19/24 11:29
Physical Exam
Constitutional: No Acute Distress, Comfortable and Non-toxic
Eyes: Sclera Anicteric
Cardiovascular: S1/S2; Negative S3/S4
Pulmonary: Non Labored
Gastrointestinal: Soft, Non Tender and Other (Ostomy in place)
Neurological: Awake and Alert
Psychological: Calm
Objective Data
Lab Data
Lab Results
11/19/24 09:03
Estimated Creat Clear 65 ml/min 11/17/24 07:21
Lactic Acid Cancelled 11/14/24 23:45
Total Bilirubin 2.6 mg/dl (0.2-1.3) H 11/14/24 13:15
AST 21 U/L (17-59) 11/14/24 13:15
ALT 17 U/L (0-50) 11/14/24 13:15
Alkaline Phosphatase 61 U/L (38-126) 11/14/24 13:15
Most recent labs reviewed.
Micro Results:
11/14/24 19:35 Blood Culture - Preliminary
Blood/Venous No Growth in 4 days- Final report to follow
11/14/24 19:35 Blood Culture - Preliminary
Blood/Venous No Growth in 4 days- Final report to follow
No abdominal cultures sent
Imaging:
11/14/2024 CT abdomen/pelvis: Pneumoretroperitoneum seen. More localized gas and fluid in the left hemiabdomen lateral to the descending colon suggestive of a perforated diverticulum. Please see full dictation for additional detail.
Care Review
Plan reviewed with: Physician (Gen Coronado; Hospitalist)
--- NOTE | 2024-11-19 14:22 | W.PN.HOSP.TC ---
Addendum entered and electronically signed by Trevor Mcwilliams MD 11/19/24 14:42:
Daughter Tammy updated
Original Note:
Today's Communication/Plan
-
Discharge
Assessment / Plan
Assessment / Plan
74-year-old male with recent episode of diverticulitis status post colectomy at [facility] admitted with abdominal pain was found to have perforated diverticulitis.
Cardiovascular system irregular S1-S2
Chest clear to auscultation
Abdomen midline surgical wound with sarah, colostomy with stool
Bowel sounds appreciated
No pedal edema
# Acute diverticulitis with perforated colon-status post exploratory laparotomy takedown of splenic fissure drainage of intra-abdominal abscess and creation of end colostomy
Follow-up colostomy is functioning
Diet advanced to low residue
SUSAN drain out
Continue antibiotics and antifungals-Zosyn and micafungin
White count trending down
Infectious disease following appreciated-discussed. 1 more week of Augmentin
# Atrial fibrillation- unclear type
Continue beta-blockers. Eliquis resumed on 11/16/2024
EKG [id number]
# Hyperlipidemia-continue simvastatin
# Chronic CHF per chart-unclear if type- resume lasix
# Sleep apnea-continue CPAP
# History of DVT and PE-continue Eliquis
# Prostate disease-continue alpha blockers
# History of subdural hematoma
# Cholelithiasis
# Obesity per BMI- 37
# Mental health disorder-continue fluoxetine
# DVT prophylaxis-Eliquis
# Full code
Discussed with nursing
Discussed with infectious disease
More than 30 minutes spent in discharge including
Final examination of the patient
Summarizing hospital stay
Instructions for continuing care to all relevant caregivers
Preparation of discharge records, prescriptions, and referral forms
Total time spent (in minutes): 37 min
Part of this note was created using voice recognition system. Occasional wrong word or��sound alike� substitutions may have inadvertently occurred due to the inherent limitations of voice recognition software. If noted kindly bring it to my
attention for correction.
Anticipated Discharge: Today
Subjective/Interval History
-
Date of Service: November 19, 2024
Objective Data
-
Labs:
Laboratory Results
11/19/24 11/19/24
09:02 09:03
WBC 14.9 H
Hgb 11.9 L
Hct 35.6 L
Plt Count 272 D
Sodium Pending
Potassium Pending
Chloride Pending
Carbon Dioxide Pending
BUN Pending
Creatinine Pending
Glucose Pending
Calcium Pending
Vital Signs:
Vital Signs
Temp Pulse Resp BP Pulse Ox
98.4 F 77 18 124/70 96
11/19/24 11:29 11/19/24 11:29 11/19/24 11:29 11/19/24 11:29 11/19/24 11:29
I&O
11/18/24 11/19/24 11/20/24
06:59 06:59 06:59
Intake Total 2245 / 2245 380 / 380 580 / 580
Output Total 2285 / 2285 375 / 375 90 / 90
Balance -40 / -40 5 / 5 490 / 490
[2024-11-19 14:34] LABS: Blood Urea Nitrogen 19 mg/dl (9-20); Calcium 8.8 mg/dl (8.4-10.2); Carbon Dioxide 22 mmol/L (22-30); Chloride 106 mmol/L (98-107); Estimated Creatinine Clearance 74 ml/min; Glucose 169 mg/dl (70-99); Potassium 4.4 mmol/L (3.5-5.1); Sodium 136 mmol/L (135-145); eGFR > 60.00
--- NOTE | 2024-11-19 14:36 | W.DS.TRANS ---
Addendum entered and electronically signed by Trevor Mcwilliams MD 11/19/24 15:47:
Dictation- [id number]
Original Note:
DC Summary - [facility]
-
Discharge Instructions:
Diet Low Fiber
Activity No strenuous activity
Additional Activity do not lift over 15lbs for the next 6 weeks.
light activity such as walking and going up
stairs is encouraged as tolerated
Bathing Restrictions OK to Shower
Blood Work cbc,Bmp - 1 week
Other Services VN
Wound Care Cover incision with clean dry gauze if drainage
noted and change daily and as needed. Cover
prior drain site with clean dry gauze and change
daily until drainage no longer noted.
Stephen will be removed at your follow up
appointment with your surgeon. Schedule this 2-3
weeks from your surgery date.
Instructions:
Stand-Alone Forms:
Changes to Home Medications: Yes
Discharge Medications:
DC Medications w/original date entered in [place]
apixaban 5 mg tablet (Eliquis) 5 mg PO BID Blood Clot Prevention/Tx 11/14/24
ascorbic acid (vitamin C) 1,000 mg tablet (Vitamin C) 1,000 mg PO DAILY Supplement 11/14/24
aspirin 81 mg tablet 81 mg PO DAILY Blood Clot Prevention/Tx 11/14/24
cyanocobalamin (vitamin B-12) 1,000 mcg tablet (Vitamin B-12) 1,000 mcg PO DAILY Supplement 11/14/24
dutasteride 0.5 mg capsule 0.5 mg PO DAILY Urinary Issue 11/14/24
famotidine 40 mg tablet 40 mg PO DAILY Gastrointestinal Issue 11/14/24
fluoxetine 20 mg capsule 20 mg PO DAILY Mental Health/Anxiety 11/14/24
furosemide 40 mg tablet 40 mg PO DAILY Fluid Retention/Swelling 11/14/24
loratadine 10 mg tablet (Claritin) 10 mg PO DAILY PRN allergies 11/14/24
metoprolol tartrate 25 mg tablet 25 mg PO HS Blood Pressure 11/14/24
metoprolol tartrate 50 mg tablet 50 mg PO DAILY Blood Pressure 11/14/24
multivitamin 1 tab PO DAILY Supplement 11/14/24
simvastatin 20 mg tablet 20 mg PO DAILY High Cholesterol 11/14/24
vibegron 75 mg tablet (Gemtesa) 75 mg PO DAILY 11/14/24
acetaminophen 500 mg tablet (Tylenol Extra Strength) 1,000 mg (2 x 500 mg) PO Q6HPRN PRN mild pain #0 tabs 11/19/24
amoxicillin 875 mg-potassium clavulanate 125 mg tablet 1 tab PO Q12H Gastrointestinal issue #15 tabs 11/19/24
famotidine 40 mg tablet (Pepcid) 40 mg PO DAILY Gastrointestinal issue #0 tabs 11/19/24
polyethylene glycol 3350 17 gram oral powder packet 17 g PO DAILY Constipation #30 packets 11/19/24
Home Medication Changes
new
amoxicillin 875 mg-potassium clavulanate 125 mg tablet 1 tab PO Q12H Gastrointestinal issue #15 tabs 11/19/24
polyethylene glycol 3350 17 gram oral powder packet 17 g PO DAILY Constipation #30 packets 11/19/24
Pending Results: No
[2024-11-19 15:16] VITALS: BP 146/71
[2024-11-19] MEDS: ZOSYN IV (15:38)
[2024-11-19] MEDS: MYCAMINE IV (15:39)
--- NOTE | 2024-11-19 18:21 | SUR.OPER ---
Pt left via wc with staff. Pts daughter up to floor and dc instructions reviewed with both. Pt will be going to daughters house.
== END 2024-11-19 18:09 | disposition home health service (06) | DRG 853 ==
LOC: 2 SOUTH 20:15
PROVIDERS: Emergency Medicine; Internal Medicine; Nurse Practitioner; Registered Nurse; ADMITTING PHYSICIAN Internal Medicine; ATTENDING PHYSICIAN Hospitalist; CONSULT PHYSICIAN Internal Medicine Infectious Disease; CONSULT PHYSICIAN Surgery; EMERGENCY PHYSICIAN Emergency Medicine; FAMILY PHYSICIAN Physician Assistant
PROC: 0W9G00Z Drainage of Peritoneal Cavity with Drainage Device, Open Approach (ICD-10-PCS; 2024-11-14)
PROC: 0DTM0ZZ Resection of Descending Colon, Open Approach (ICD-10-PCS; 2024-11-14)
PROC: 0DTN0ZZ Resection of Sigmoid Colon, Open Approach (ICD-10-PCS; 2024-11-14)
PROC: 0D1L0Z4 Bypass Transverse Colon to Cutaneous, Open Approach (ICD-10-PCS; 2024-11-14)
PROC: 5A09357 Assistance with Respiratory Ventilation, Less than 24 Consecutive Hours, Continuous Positive Airway Pressure (ICD-10-PCS; 2024-11-15)
DX: A41.9 Sepsis, unspecified organism (principal); K65.1 Peritoneal abscess; K57.20 Diverticulitis of large intestine with perforation and abscess without bleeding; I50.32 Chronic diastolic (congestive) heart failure; N17.9 Acute kidney failure, unspecified; D62 Acute posthemorrhagic anemia; I11.0 Hypertensive heart disease with heart failure; I48.91 Unspecified atrial fibrillation; R00.0 Tachycardia, unspecified; R73.03 Prediabetes; R73.9 Hyperglycemia, unspecified; E66.9 Obesity, unspecified; K21.9 Gastro-esophageal reflux disease without esophagitis; N40.0 Benign prostatic hyperplasia without lower urinary tract symptoms; G47.33 Obstructive sleep apnea (adult) (pediatric); Z60.2 Problems related to living alone; Z96.652 Presence of left artificial knee joint; Z86.718 Personal history of other venous thrombosis and embolism; Z79.01 Long term (current) use of anticoagulants; Z90.49 Acquired absence of other specified parts of digestive tract; Z87.19 Personal history of other diseases of the digestive system; Z79.82 Long term (current) use of aspirin; Z86.711 Personal history of pulmonary embolism; Z68.37 Body mass index [BMI] 37.0-37.9, adult
CPT/HCPCS: 88307; 74177; 80048; 80053; 82306; 83605; 83690; 83735; 85025; 85027; 86850; 86900; 86901; 87040; 93005; 96365; 97162; 97166; 97530; 97535; 99291; C1776; Q9967

== ENCOUNTER 2025-02-21 10:24 | Inpatient (IN) | payer MEDICARE, BC, SELFPAY ==
[2025-02-21] VITALS (14 sets, daily range): BP systolic 30–143; BP diastolic 43–83; BMI 35.3
[2025-02-21 11:01] LABS: Glucose - Point of Care 121 mg/dl (70-99)
[2025-02-21] MEDS: NORMOSOL-R/PLASMALYTE-A 1000 IV ×2 (11:07→20:14)
[2025-02-21] MEDS: TYLENOL 1000 MG PO (11:07)
[2025-02-21] MEDS: HEPARIN 5000 UNITS SC (11:07)
--- NOTE | 2025-02-21 16:52 | W.IMMPOSTOP ---
Surgical Immed Post Op Note
-
Primary Surgeon: Jaime
Assisting: Carol ARROYO
Pre-op Diagnosis: Colostomy
Post-op Diagnosis: Same
Procedure Performed: Colostomy reversal, hepatic flexure take-down, lysis of adhesions 90 min
Anesthesia Type: GETA
Specimen / Cultures: Sigmoid stump, distal transverse colon
Estimated Blood Loss: 30cc
Complications: None immediate
Operative Findings: Redundant transverse colon, good length on sigmoid stump, sigmoid mesentery scored; extensive lysis of adhesions to small bowel; side-side anti-peristaltic anastomosis from transverse to sigmoid with FREDY 80mm purple load, common
channel closed with suture in two layers, inner PDS lyubov running and outer layer of 2-0 silk interrupted; left ureteral stent palpated and ureter protected; mesenteric defect closed and crotch stitch placed; 19 fr suresh drain to left lower
quadrant
DVT ppx for now, hold anticoagulation
Tentatively to restart A/C in 48 hrs
[2025-02-21] MEDS: ZOFRAN 4 MG IV (17:33)
--- NOTE | 2025-02-21 19:28 | PTCARENOTE ---
pt admitted to room 2119 at 1815. pt arrived awake and alert, oriented to room, call velazquez, and plan of care with verbalized understanding. telemetry placed and reading Afib in 90's. pt stated he was experiencing double vision, then added he has
had that since last surgery when not wearing his glasses due to being near sighted and far sighted. no personal belongings at bedside. called to PACU to obtain belongings bags. care ongoing. assessment as documented.
[2025-02-21] MEDS: ZOSYN 50 IV (20:14)
[2025-02-21] MEDS: LOVENOX 40 MG SC (20:15)
[2025-02-21] MEDS: PROTONIX IV 40 MG IV (22:28)
[2025-02-22] VITALS (9 sets, daily range): BP systolic 94–146; BP diastolic 52–81; PULSE 90; O2SAT 97; BMI 36.0
[2025-02-22] MEDS: ZOSYN 50 IV ×4 (02:19→20:05)
[2025-02-22] MEDS: TORADOL 10 MG IV ×2 (02:32→09:18)
[2025-02-22] MEDS: NORMOSOL-R/PLASMALYTE-A IV (07:20)
[2025-02-22] MEDS: NORMOSOL-R/PLASMALYTE-A 1000 IV ×2 (07:21→17:51)
--- NOTE | 2025-02-22 10:27 | W.PN.GS2 ---
Addendum entered and electronically signed by Sahil Sandoval MD 02/22/25 10:34:
Daughter Tammy macias, unable to reach VM left
Original Note:
Today's Communication / Plan
-
Restart home lopressor
PT/OT
IV abx
Assessment / Plan
-
74M POD1 s/p open Amish's reversal
AF, mild tachycardia noted
Good UOP, though dark red color, likely from hoffman/stent trauma
Labs pending
OOBTC
Plan:
NPO with sips and chips
Toradol and ofirmev for pain control with prn dilaudid for breakthrough
IV abx day 2/
Restart home lopressor (IV)
F/U labs today
Cont holding AC
Ppx lovenox and SCDs
PT/OT
Subjective Data
-
Date of Service: February 22, 2025
AF, mild tachycardia, normotensive though single reading this am soft; pain controlled with non-narcotics, denies n/v, no flatus or BM, OOBTC
Objective Data
-
Intake and Output
02/21/25 02/22/25 02/23/25
06:59 06:59 06:59
Intake Total 1300 / 1300 20 / 20
Output Total 920 / 920 70 / 70
Balance 380 / 380 -50 / -50
Intake:
Oral fluids 20 / 20
IV fluids (Total) 1200 / 1200
normoosl 100 / 100
IV piggybacks 100 / 100
Output:
Drain Output (Total) 170 / 170 70 / 70
Left Lower Abdomen Celso- 170 / 170 70 / 70
Loyd A
Urine, Hoffman 750 / 750
Vital Signs
Temp Pulse Resp BP Pulse Ox
98.6 F 111 18 94/53 97
02/22/25 07:25 02/22/25 07:25 02/22/25 07:25 02/22/25 07:25 02/22/25 07:25
Physical Exam
-
Gen: NAD
Abd: soft, approp ttp, dressing cdi, drain ss, hoffman dark red
Patient has a hoffman catheter: Yes
Patient has a central line: No
[2025-02-22 10:39] LABS: Hematocrit 36.2 % (39.0-52.0); Hemoglobin 12.2 g/dL (13.0-18.0); Mean Corp Hgb Conc. 33.7 g/dL (33.0-37.0); Mean Corpuscular Volume 92.3 fL (80.0-94.0); Platelet Count 283 10^3/uL (130-400); Red Cell Dist. Width 14.5 % (11.5-14.5)
[2025-02-22] MEDS: OFIRMEV 100 IV ×3 (10:55→21:11)
[2025-02-22 10:59] LABS: Blood Urea Nitrogen 32 mg/dl (9-20); Calcium 7.3 mg/dl (8.4-10.2); Carbon Dioxide 25 mmol/L (22-30); Chloride 102 mmol/L (98-107); Estimated Creatinine Clearance 60 ml/min; Glucose 164 mg/dl (70-99); Magnesium 2.3 mg/dl (1.6-2.3); Potassium 4.1 mmol/L (3.5-5.1); Sodium 134 mmol/L (135-145); eGFR > 60.00
[2025-02-22] MEDS: LOPRESSOR 5 MG IV ×3 (11:50→23:30)
--- NOTE | 2025-02-22 11:50 | CM ---
Reviewed the chart notes and spoke with the patient at the bedside. Patient is POD1 s/p open Amish's reversal. The patient resides alone in a two story home with a basement. There are a total of 10 steps to enter via front door. The patient
has in home if needed 2 rolling walkers, cane, rollator, stair glide, CPAP, and shower chair. The patient confirmed his normal pharmacy is the [facility], but will be staying with his daughter. Patient's pharmacy at discharge will be
[facility]. CM continues to be available to patient/family and is monitoring medical plan for needs at discharge.
Plan: Discharge plans will depend on the patient's progress. PT evaluation pending.
[2025-02-22 11:57] LABS: Hepatitis C Antibody Negative (Negative)
[2025-02-22] MEDS: LOVENOX 40 MG SC (17:55)
[2025-02-23] MEDS: NORMOSOL-R/PLASMALYTE-A 1000 IV ×2 (00:50→07:22)
[2025-02-23] MEDS: ZOSYN 50 IV ×4 (00:59→19:43)
[2025-02-23 03:00] VITALS: BP 112/69
[2025-02-23] MEDS: OFIRMEV 100 IV (03:17)
--- NOTE | 2025-02-23 04:05 | DOWNTIME ---
There was a [employer] [facility] [employer] Downtime on 02/23/2025 from 0100 to 02/23/2025 at 0215. Downtime documentation of patient's care, including medication administrations, has been reconciled in the electronic record per guidelines. Refer to the
patient's paper chart under the miscellaneous tab to see printed paper medication records and downtime forms.
[2025-02-23] MEDS: LOPRESSOR 5 MG IV (05:29)
[2025-02-23 05:37] VITALS: BMI 36.4
[2025-02-23 08:05] VITALS: BP 118/62
[2025-02-23 08:08] LABS: Hematocrit 32.9 % (39.0-52.0); Hemoglobin 11.0 g/dL (13.0-18.0); Mean Corp Hgb Conc. 33.4 g/dL (33.0-37.0); Mean Corpuscular Volume 95.4 fL (80.0-94.0); Platelet Count 248 10^3/uL (130-400); Red Cell Dist. Width 14.6 % (11.5-14.5)
[2025-02-23 08:22] LABS: Blood Urea Nitrogen 32 mg/dl (9-20); Calcium 7.2 mg/dl (8.4-10.2); Carbon Dioxide 29 mmol/L (22-30); Chloride 102 mmol/L (98-107); Estimated Creatinine Clearance 61 ml/min; Glucose 103 mg/dl (70-99); Potassium 4.1 mmol/L (3.5-5.1); Sodium 135 mmol/L (135-145); eGFR > 60.00
[2025-02-23] MEDS: PROZAC 20 MG PO (09:29)
[2025-02-23] MEDS: ASPIR LOW (ENTERIC COATED) 81 MG PO (09:29)
[2025-02-23] MEDS: LOPRESSOR 50 MG PO (09:37)
[2025-02-23] MEDS: LASIX 40 MG PO (09:38)
--- NOTE | 2025-02-23 10:59 | W.PN.GS2 ---
Today's Communication / Plan
-
CLD
Hoffman out DTV
restart eliquis this elena
Assessment / Plan
-
74M POD2 s/p open Amish's reversal
AF, mild tachycardia noted
Good UOP, color improved
WBC improving
OOBTC
Plan:
Adv to CLD
DC hoffman
Toradol and ofirmev for pain control with prn dilaudid for breakthrough
IV abx day 08/11
Restart home meds PO
Restart eliquis this elena
SCDs
PT/OT
Subjective Data
-
Date of Service: February 23, 2025
Mild intermittent tachycardia, otherwise VSS, AF, pain controlled without narcs, ambulating, denies n/v, passing flatus
Objective Data
-
Intake and Output
02/22/25 02/23/25 02/24/25
06:59 06:59 06:59
Intake Total 1300 / 1300 3237.5 / 3237.5
Output Total 920 / 920 1830 / 1830
Balance 380 / 380 1407.5 / 1407.5
Intake:
Oral fluids 45 / 45
IV fluids (Total) 1200 / 1200 2542.5 / 2542.5
normoosl 100 / 100
IV piggybacks 100 / 100 650 / 650
Output:
Drain Output (Total) 170 / 170 230 / 230
Left Lower Abdomen Celso- 170 / 170 230 / 230
Loyd A
Urine, Hoffman 750 / 750 1600 / 1600
Vital Signs
Temp Pulse Resp BP Pulse Ox
97.6 F 85 16 118/62 99
02/23/25 08:05 02/23/25 08:05 02/23/25 08:05 02/23/25 08:05 02/23/25 08:05
Lab Results
02/23/25 06:30
02/23/25 06:30
Calcium 7.2 mg/dl (8.4-10.2) L 02/23/25 06:30
Phosphorus 3.3 mg/dl (2.5-4.5) 02/22/25 10:21
Magnesium 2.3 mg/dl (1.6-2.3) 02/22/25 10:21
Physical Exam
-
Gen: NAD
Abd: soft, approp ttp, drain ss, dressing cdi; hoffman with blood tinged urine clearing from yesterday
Patient has a hoffman catheter: No
Patient has a central line: No
--- NOTE | 2025-02-23 11:21 | CM ---
Reviewed the chart notes. Patient's diet now clears. CM continues to be available to patient/family and is monitoring medical plan for needs at discharge.
Plan: Discharge to home when medically stable. No needs anticipated.
[2025-02-23 11:45] VITALS: BP 112/67
[2025-02-23] MEDS: PROSCAR 5 MG PO (12:24)
[2025-02-23 15:55] VITALS: BP 120/75
[2025-02-23 19:15] VITALS: BP 126/72
[2025-02-23] MEDS: ELIQUIS 5 MG PO (19:43)
[2025-02-23] MEDS: LOPRESSOR 25 MG PO (22:38)
[2025-02-23 23:17] VITALS: BP 131/71
[2025-02-24] MEDS: ZOSYN 50 IV ×4 (02:14→20:18)
[2025-02-24 03:06] VITALS: BP 110/54
[2025-02-24 06:00] VITALS: BMI 36.1
[2025-02-24 07:35] VITALS: BP 125/52
[2025-02-24 07:53] LABS: Hematocrit 31.1 % (39.0-52.0); Hemoglobin 10.3 g/dL (13.0-18.0); Mean Corp Hgb Conc. 33.1 g/dL (33.0-37.0); Mean Corpuscular Volume 94.2 fL (80.0-94.0); Platelet Count 243 10^3/uL (130-400); Red Cell Dist. Width 14.4 % (11.5-14.5)
[2025-02-24 08:32] LABS: Blood Urea Nitrogen 23 mg/dl (9-20); Calcium 8.0 mg/dl (8.4-10.2); Carbon Dioxide 30 mmol/L (22-30); Chloride 105 mmol/L (98-107); Estimated Creatinine Clearance 72 ml/min; Glucose 115 mg/dl (70-99); Potassium 4.0 mmol/L (3.5-5.1); Sodium 137 mmol/L (135-145); eGFR > 60.00
--- NOTE | 2025-02-24 08:56 | W.PN.GS2 ---
Today's Communication / Plan
-
Adv to LRD
IV abx day 4
Assessment / Plan
-
74M POD3 s/p open Amish's reversal
AF, mild tachycardia improved
Good UOP, color improved
WBC improving
OOBTC
Plan:
Adv to LRD
Toradol and tylenol for pain control with prn dilaudid for breakthrough
IV abx day 09/11
Cont home meds PO
Cont eliquis
SCDs
PT/OT
Subjective Data
-
Date of Service: February 24, 2025
AFVSS, passing flatus and BM, denies n/v, ayesha cld, pain controlled, amblating, voiding
Objective Data
-
Intake and Output
02/23/25 02/24/25 02/25/25
06:59 06:59 06:59
Intake Total 3237.5 / 3237.5 580 / 580
Output Total 1830 / 1830 1175 / 1175
Balance 1407.5 / 1407.5 -595 / -595
Intake:
Oral fluids 45 / 45 480 / 480
IV fluids (Total) 2542.5 / 2542.5
IV piggybacks 650 / 650 100 / 100
Output:
Drain Output (Total) 230 / 230 175 / 175
Left Lower Abdomen Celso- 230 / 230 175 / 175
Loyd A
Urine, Hoffman 1600 / 1600
Urine, Voided 1000 / 1000
Vital Signs
Temp Pulse Resp BP Pulse Ox
97.6 F 79 19 110/54 98
02/24/25 03:06 02/24/25 03:06 02/24/25 03:06 02/24/25 03:06 02/24/25 03:06
Lab Results
02/24/25 07:14
02/24/25 07:14
Calcium 8.0 mg/dl (8.4-10.2) L 02/24/25 07:14
Phosphorus 3.3 mg/dl (2.5-4.5) 02/22/25 10:21
Magnesium 2.3 mg/dl (1.6-2.3) 02/22/25 10:21
Physical Exam
-
Gen: NAD
Abd: soft, approp ttp, silver dressing cdi, drain ss
Patient has a hoffman catheter: No
Patient has a central line: No
[2025-02-24] MEDS: LASIX 40 MG PO (09:11)
[2025-02-24] MEDS: ELIQUIS 5 MG PO ×2 (09:11→20:18)
[2025-02-24] MEDS: PROSCAR 5 MG PO (09:11)
[2025-02-24] MEDS: ASPIR LOW (ENTERIC COATED) 81 MG PO (09:11)
[2025-02-24] MEDS: LOPRESSOR 50 MG PO (09:12)
[2025-02-24] MEDS: PROZAC 20 MG PO (09:12)
--- NOTE | 2025-02-24 09:52 | CM ---
Patient seen at bedside
s/p open Amish's reversal
Low residue diet ordered
PT eval-likely no needs
PLAN: Discharge to home when medically stable. No needs anticipated.
[2025-02-24] MEDS: COLACE 100 MG PO ×2 (11:04→20:18)
[2025-02-24 11:20] VITALS: BP 101/47
--- NOTE | 2025-02-24 11:37 | OR.RPT ---
Operative Report
Operative Report
Primary Surgeon: Jaime
Assisting: Carol ARROYO
Pre-op Diagnosis: Colostomy
Post-op Diagnosis: Same
Procedure Performed: Colostomy reversal, hepatic flexure take-down, lysis of adhesions 120 min
Anesthesia Type: GETA
Specimen / Cultures: Sigmoid stump, distal transverse colon
Estimated Blood Loss: 30cc
Complications: None immediate
Operative Findings: Redundant transverse colon, good length on sigmoid stump, sigmoid mesentery scored; extensive lysis of adhesions to small bowel; side-side anti-peristaltic anastomosis from transverse to sigmoid with FREDY 80mm purple load, common
channel closed with suture in two layers, inner PDS lyubov running and outer layer of 2-0 silk interrupted; left ureteral stent palpated and ureter protected; mesenteric defect closed and crotch stitch placed; 19 fr suresh drain to left lower
quadrant
DOS: 02/21/25
Indications: This 74M developed perforated divertculitis and underwent Amish's procedure. He did well with recovery and would like his colostomy reversed. Open reversal of colostomy was elected.
Description of procedure: The patient was placed on the operating table in the supine position. General anesthesia was induced. A time-out was completed verifying correct patient, procedure, site, positioning, and special equipment prior to
beginning this procedure. The stoma was sutured closed with 2-0 silk suture. The abdomen was prepped and draped in the usual sterile fashion. A midline incision was made with cut cautery and carried down to the fascia with coag cautery. The midline
fascia was divided and the abdomen entered. Lysis of adhesions commenced and took approximately 120 min. Small bowel interloop and abdominal wall adhesions were lysed with cold nicki. The stoma was isolated from surrounding structures from
intra-abdominal approach. A FREDY 80mm purple load stapler was used to divide the colon at the stoma site flush with the abdominal wall. The transverse colon was mobilized by dividing the gastrocolic ligament, progressing toward the hepatic flexure
and ultimately taking down the hepatic flexure using blunt dissection and cautery. The sigmoid stump was identified and mobilized off adhesions to the lateral abdominal wall. The left ureteral stent was palpated and the ureter was protected. The
sigmoid mesentery was scored to enhance mobility. The transverse colon ultimately was brought down to the left lower quadrant and sat nicely abutting the sigmoid stump without tension. A side-side anti-peristaltic anastomosis was created with the
same FREDY stapler. The common channel was closed in 2 layers with 2-0 PDS lyubov stitch inner layer and interrupted 2-0 silk lembert sutures for the second layer. The mesenteric defect was closed with a running 2-0 silk suture and a crotch stitch
was placed with the same suture. Attention was turned to the old stoma site. The segment of colon within the abdominal wall inclusive of the stoma was excised with cautery. A 19fr suresh drain was placed into the left lower quadrant, brought out
through the abdominal wall and secured with 2-0 nylon suture. The abdomen was irrigated thoroughly with sterile saline and the old stoma site fascia was closed with 2-0 PDS suture and the midline fascia was closed with #1 PDS stratafix suture. The
subcutaneous tissue was irrigated thoroughly with sterile saline. The skin was closed with sarah at the midline. A jerica drain was placed into the old stoma site and the skin was loosely approximated over the jerica with sarah. A mepilex
dressing was applied to the midline and gauze and abd pad were placed over the old stoma site.
The patient tolerated the procedure well and was taken to the postanesthesia care unit in stable condition.
[2025-02-24 15:24] VITALS: BP 133/72
[2025-02-24 19:07] VITALS: BP 136/78
[2025-02-24] MEDS: LOPRESSOR 25 MG PO (21:15)
[2025-02-24 23:22] VITALS: BP 134/82
[2025-02-25] MEDS: ZOSYN 50 IV ×2 (01:46→09:14)
[2025-02-25 03:19] VITALS: BP 124/61
[2025-02-25 06:00] VITALS: BMI 36.4
[2025-02-25 07:55] VITALS: BP 133/71
[2025-02-25] MEDS: ELIQUIS 5 MG PO (09:18)
[2025-02-25] MEDS: LOPRESSOR 50 MG PO (09:19)
[2025-02-25] MEDS: COLACE 100 MG PO (09:19)
[2025-02-25] MEDS: PROSCAR 5 MG PO (09:19)
[2025-02-25] MEDS: LASIX 40 MG PO (09:19)
[2025-02-25] MEDS: ASPIR LOW (ENTERIC COATED) 81 MG PO (09:19)
[2025-02-25] MEDS: PROZAC 20 MG PO (09:20)
--- NOTE | 2025-02-25 10:39 | W.PN.GS2 ---
Today's Communication / Plan
-
`
Assessment / Plan
-
Assessment: 74M POD4 s/p open Amish's reversal
AFVSS
Doing well postoperatively with returning GI function.
SUSAN removed
Plan: Stable for discharge home. Discharge instructions reviewed with patient.
No further antibiotics on discharge
Outpatient follow-up in [address] Sandoval for staple removal
Subjective Data
-
Date of Service: February 25, 2025
Patient seen and examined.
Postoperative incisional pain controlled and generally mild.
Tolerating low residue diet. No significant nausea. No significant abdominal bloating or distention.
Passing flatus and has had an occasional smear of bowel movement
Objective Data
-
Intake and Output
02/24/25 02/25/25 02/26/25
06:59 06:59 06:59
Intake Total 580 / 580 1160 / 1160
Output Total 1175 / 1175 105 / 105
Balance -595 / -595 1055 / 1055
Intake:
Oral fluids 480 / 480 960 / 960
IV piggybacks 100 / 100 200 / 200
Output:
Drain Output (Total) 175 / 175 105 / 105
Left Lower Abdomen Celso- 175 / 175 105 / 105
Loyd A
Urine, Voided 1000 / 1000
Vital Signs
Temp Pulse Resp BP Pulse Ox
98.0 F 78 16 133/71 100
02/25/25 07:55 02/25/25 07:55 02/25/25 07:55 02/25/25 07:55 02/25/25 07:55
Lab Results
02/24/25 07:14
02/24/25 07:14
Calcium 8.0 mg/dl (8.4-10.2) L 02/24/25 07:14
Phosphorus 3.3 mg/dl (2.5-4.5) 02/22/25 10:21
Magnesium 2.3 mg/dl (1.6-2.3) 02/22/25 10:21
Physical Exam
-
NAD AAO x 3
ABD: Soft, generally nondistended. Mild incisional tenderness.
Midline incision dressing removed. Stephen intact. No open wounds, active drainage or erythema.
Old ostomy site -Max drain removed. No active drainage [place] in place centrally.
SUSAN drain with serosanguineous contents in bulb
--- NOTE | 2025-02-25 10:43 | W.DS.TRANS ---
Addendum entered and electronically signed by KALEY Hernandes 03/03/25 13:13:
dictated #[id number]
Original Note:
DC Summary - [facility]
-
Discharge Instructions:
Discharge Diagnosis/Procedures Colostomy reversal
Diet Low Residue
Activity No strenuous activity
Bathing Restrictions OK to Shower
Wound Care Cover wound in the middle as needed if drainage,
if no drainage can leave open to air. The old
stoma site dressing should be changed daily.
When the gauze comes off clean after 24 hrs you
no longer need to cover it. This area usually
will have drainage.
Instructions:
Stand-Alone Forms:
Changes to Home Medications: No
Discharge Medications:
DC Medications w/original date entered in [employer]
apixaban 5 mg tablet (Eliquis) 5 mg PO BID Blood Clot Prevention/Tx 11/14/24
ascorbic acid (vitamin C) 1,000 mg tablet (Vitamin C) 1,000 mg PO DAILY Supplement 11/14/24
aspirin 81 mg tablet 81 mg PO DAILY Blood Clot Prevention/Tx 11/14/24
cyanocobalamin (vitamin B-12) 1,000 mcg tablet (Vitamin B-12) 1,000 mcg PO DAILY Supplement 11/14/24
dutasteride 0.5 mg capsule 0.5 mg PO DAILY Urinary Issue 11/14/24
famotidine 40 mg tablet 40 mg PO DAILY Gastrointestinal Issue 11/14/24
fluoxetine 20 mg capsule 20 mg PO HS Mental Health/Anxiety 11/14/24
furosemide 40 mg tablet 40 mg PO DAILY Fluid Retention/Swelling 11/14/24
loratadine 10 mg tablet (Claritin) 10 mg PO DAILY PRN allergies 11/14/24
metoprolol tartrate 25 mg tablet 25 mg PO HS Blood Pressure 11/14/24
metoprolol tartrate 50 mg tablet 50 mg PO DAILY Blood Pressure 11/14/24
multivitamin 1 tab PO DAILY Supplement 11/14/24
simvastatin 20 mg tablet 20 mg PO HS High Cholesterol 11/14/24
vibegron 75 mg tablet (Gemtesa) 75 mg PO HS Urinary Issue 11/14/24
polyethylene glycol 3350 17 gram oral powder packet 17 g PO DAILY Constipation #30 packets 11/19/24
acetaminophen 500 mg tablet (Tylenol Extra Strength) 1,000 mg (2 x 500 mg) PO Q6HPRN PRN mild pain #1 tab 02/25/25
oxycodone 5 mg tablet 5 mg PO Q4HPRN PRN breakthrough/severe pain #7 tabs 02/25/25
Home Medication Changes
Pending Results: No
--- NOTE | 2025-02-25 10:59 | CM ---
Patient is for discharge to home today, patient has transport to home.
Plan; Home no needs.
[2025-02-25 12:35] VITALS: BP 128/71
== END 2025-02-25 14:08 | disposition home or self-care (01) | DRG 330 ==
LOC: 2 SOUTH 10:24
PROVIDERS: Surgery; ADMITTING PHYSICIAN Surgery; FAMILY PHYSICIAN Family Medicine
PROC: 0DBL0ZZ Excision of Transverse Colon, Open Approach (ICD-10-PCS; 2025-02-21)
PROC: 0DQV0ZZ Repair Mesentery, Open Approach (ICD-10-PCS; 2025-02-21)
PROC: 0T788DZ Dilation of Bilateral Ureters with Intraluminal Device, Via Natural or Artificial Opening Endoscopic (ICD-10-PCS; 2025-02-21)
PROC: 0DSL0ZZ Reposition Transverse Colon, Open Approach (ICD-10-PCS; 2025-02-21)
PROC: 0DN80ZZ Release Small Intestine, Open Approach (ICD-10-PCS; 2025-02-21)
PROC: 0T9B80Z Drainage of Bladder with Drainage Device, Via Natural or Artificial Opening Endoscopic (ICD-10-PCS; 2025-02-21)
DX: Z43.3 Encounter for attention to colostomy (principal); Q43.8 Other specified congenital malformations of intestine; K66.0 Peritoneal adhesions (postprocedural) (postinfection); I48.91 Unspecified atrial fibrillation; R73.03 Prediabetes; I11.0 Hypertensive heart disease with heart failure; I50.9 Heart failure, unspecified; E66.9 Obesity, unspecified; E78.5 Hyperlipidemia, unspecified; N35.919 Unspecified urethral stricture, male, unspecified site; Z60.2 Problems related to living alone; Z79.82 Long term (current) use of aspirin; Z79.01 Long term (current) use of anticoagulants; Z87.19 Personal history of other diseases of the digestive system; Z86.718 Personal history of other venous thrombosis and embolism; Z86.711 Personal history of pulmonary embolism; Z90.49 Acquired absence of other specified parts of digestive tract; Z68.36 Body mass index [BMI] 36.0-36.9, adult
CPT/HCPCS: 80048; 82962; 83735; 84100; 85027; 86803; 88304; 88307; 97162; 97166; A4300; A4648

== ENCOUNTER 2025-02-27 19:14 | Inpatient (IN) | payer MEDICARE, BC, SELFPAY ==
[2025-02-27] VITALS (10 sets, daily range): BP systolic 82–163; BP diastolic 43–101; BMI 36.9
--- NOTE | 2025-02-27 12:38 | CON.GS ---
Consultation
-
Date/Time Consultation Requested: 02/27/2025, 12:35
Date/Time Consultation Performed: 02/27/2025, 12:55
Requesting Provider: Jaime Phan DO
Performing Provider: Mike Braxton MD
Reason for Consultation: abdominal pain
Medical History
-
Chief Complaint: abdominal pain
History of Present Illness:
74yo male with a recent colostomy reversal by Dr. Sandoval on 02/21/2025 and discharged 02/25/2025, presents to the ER complaining of abdominal pain at his former colostomy site. The patient's hospital course was uncomplicated and he was discharged on a
low residue diet as well as his home medication Eliquis. Initially he underwent an exploratory laparotomy, takedown splenic flexure, drainage intra-abdominal abscess, creation end colostomy due to perforated diverticulitis on 11/15/2024. In the ER his
vitals are normal. Labs are pending. Had some nausea and vomiting which has resolved.
Past Medical History
Past Medical History: Other (Obstructive sleep apnea on CPAP, Atrial fibrillation, Diverticulitis status post colectomy in August 2024, BPH, DVT Pulmonary embolism)
Past Surgical History: Other (History of subdural hematoma status post surgery in , robotic sigmoidectomy, 02/21/25- Colostomy reversal)
Social History
Tobacco: Non-Smoker
Alcohol: None
Drug: None
Family History
Family History: Reviewed & Not Pertinent
Allergies / Home Medications
Allergy/AdvReac Type Severity Reaction Status Date / Time
No Known Allergies Allergy Unverified 02/15/25 10:32
�Medication �Instructions �Recorded �Confirmed �Type
apixaban 5 mg tablet (Eliquis) 5 mg PO BID Blood Clot 11/14/24 02/21/25 History
Prevention/Tx
ascorbic acid (vitamin C) 1,000 mg 1,000 mg PO DAILY Supplement 11/14/24 02/21/25 History
tablet (Vitamin C)
aspirin 81 mg tablet 81 mg PO DAILY Blood Clot 11/14/24 02/21/25 History
Prevention/Tx
cyanocobalamin (vitamin B-12) 1,000 mcg PO DAILY Supplement 11/14/24 02/21/25 History
1,000 mcg tablet (Vitamin B-12)
dutasteride 0.5 mg capsule 0.5 mg PO DAILY Urinary Issue 11/14/24 02/21/25 History
famotidine 40 mg tablet 40 mg PO DAILY Gastrointestinal 11/14/24 02/21/25 History
Issue
fluoxetine 20 mg capsule 20 mg PO HS Mental Health/Anxiety 11/14/24 02/21/25 History
furosemide 40 mg tablet 40 mg PO DAILY Fluid 11/14/24 02/21/25 History
Retention/Swelling
loratadine 10 mg tablet (Claritin) 10 mg PO DAILY PRN allergies 11/14/24 02/21/25 History
metoprolol tartrate 25 mg tablet 25 mg PO HS Blood Pressure 11/14/24 02/21/25 History
metoprolol tartrate 50 mg tablet 50 mg PO DAILY Blood Pressure 11/14/24 02/21/25 History
multivitamin 1 tab PO DAILY Supplement 11/14/24 02/21/25 History
simvastatin 20 mg tablet 20 mg PO HS High Cholesterol 11/14/24 02/21/25 History
vibegron 75 mg tablet (Gemtesa) 75 mg PO HS Urinary Issue 11/14/24 02/21/25 History
polyethylene glycol 3350 17 gram 17 g PO DAILY Constipation #30 11/19/24 02/21/25 Rx
oral powder packet packets
acetaminophen 500 mg tablet 1,000 mg (2 x 500 mg) PO Q6HPRN 02/25/25 Rx
(Tylenol Extra Strength) PRN mild pain #1 tab
oxycodone 5 mg tablet 5 mg PO Q4HPRN PRN 02/25/25 Rx
breakthrough/severe pain #7 tabs
Review of Systems
-
History Source: Patient
Abdomen/GI: Abdominal Pain
A 10 point review of systems was completed, and was negative except as per HPI.
Physical Exam
Vital Signs
Temp Pulse Resp BP Pulse Ox
98.5 F 90 16 163/91 94
02/27/25 12:16 02/27/25 12:16 02/27/25 12:16 02/27/25 12:16 02/27/25 12:16
02/26/25 02/27/25 02/28/25
06:59 06:59 06:59
Actual Weight 108 kg
Physical Exam
General: Well Developed, Well Nourished and No Apparent Distress
GI: Soft, Non Tender and Incisions (small scant amount of bleeding, gauze and tape replaced, colostomy site with sarah in place, c/d/i, no erythema)
Neuro: AO x 3
Psych: Calm
Data Reviewed
-
Old Records: Reviewed
Assessment / Plan
-
Assessment: 74 year old male POD#6 from a colostomy reversal, now with pain over the former colostomy site
Plan:
-Labs pending
-CT A/P pending
-Remain NPO for now
-Pain control
-Further plans to follow once CT performed
[2025-02-27] MEDS: OMNIPAQUE 50 ML PO (12:41)
[2025-02-27] MEDS: NSS 500 IV (12:41)
[2025-02-27] MEDS: ZOFRAN 4 MG IV (12:42)
[2025-02-27 12:54] LABS: Hematocrit 39.5 % (39.0-52.0); Hemoglobin 13.1 g/dL (13.0-18.0); Mean Corp Hgb Conc. 33.2 g/dL (33.0-37.0); Mean Corpuscular Volume 91.6 fL (80.0-94.0); Nucleated Red Blood Cells % 0 % (-); Platelet Count 394 10^3/uL (130-400); Red Cell Dist. Width 14.0 % (11.5-14.5)
[2025-02-27 13:01] LABS: ALT (SGPT) 22 U/L (0-50); AST (SGOT) 21 U/L (17-59); Albumin 3.3 g/dl (3.5-5.0); Alkaline Phosphatase 86 U/L (38-126); Blood Urea Nitrogen 23 mg/dl (9-20); Calcium 9.3 mg/dl (8.4-10.2); Carbon Dioxide 24 mmol/L (22-30); Chloride 105 mmol/L (98-107); Glucose 180 mg/dl (70-99); Lipase 54 U/L (23-300); Potassium 3.8 mmol/L (3.5-5.1); Sodium 137 mmol/L (135-145); Total Protein 6.4 g/dl (6.3-8.2); eGFR > 60.00
--- NOTE | 2025-02-27 16:26 | ED.GENMED ---
History of Present Illness
General
Chief Complaint: Abdominal Pain
Source: patient
Exam Limitations: none
Time Seen by Provider: 02/27/25 12:12
History of Present Illness
History of Present Illness:
74-year-old male recent reanastomosis of a colostomy secondary to diverticulitis. Surgery was done February 21. Patient was doing well and today when he sat up felt a sudden pop at the colostomy site then a graves of pain down his lower abdomen
followed by nausea and an episode of vomiting. Pain is ongoing. Nausea has improved some.
Past History
Past History
ED Past Medical History: Arrthythmia, CAD, CHF, HTN and Other (DVT/PE)
ED Past Surgical History: Bowel resection, Tonsilectomy and Other (Subdural hematoma)
Phy Exam
Physical Exam
Physical Exam:
GENERAL: Alert and oriented. Nontoxic initially but appears moderately uncomfortable. Holding a emesis bag under his head
EYE: Orbits normal.
NECK: Supple, no significant adenopathy.
ENT: Pharynx without erythema
CARDIAC: Irregular irregular. Mildly tachycardic
LUNGS: Clear breath sounds,normal
ABDOMEN: Mildly distended. Stephen and incision in place. No drainage or erythema. Tenderness over the bandage at the previous colostomy site. No bowel sounds present.
NEUROLOGICAL: Alert and oriented , grossly non-focal
SKIN: Warm and dry, no rash or lesion, no discoloration, skin intact.
MUSCULOSKELETAL: No edema,no deformity.Good color
PSYCH: Normal and appropriate interaction.
Course
Orders/Labs/Results
Orders:
Orders
02/27/25 12:15
EKG [Electrocardiogram (*1)] Urgent
Reason for Study: Tachycardia
EKG- Treatment ONCE
02/27/25 12:32
IV Insert/Care/Rem.- Treatment PRN
IV Insert/Care/Rem.- Treatment PRN
0.9% Sodium Chloride 500 ml [Nss] 500 ml IV BOLUS
Pulse Ox/cont/shift [RESP] Stat
Quantity: 1
02/27/25 12:33
Iohexol [Omnipaque] See Protocol PO NOW STA
02/27/25 12:34
CT Abd/pel W Iv And Oral Contr Urgent
Comment:
Reason For Exam: Recent colostomy reversal. add rectal contrast
Ondansetron Injectable [Zofran] 4 mg IV NOW STA
02/27/25 12:37
Type+Screen Urgent
Complete Blood Count/With Diff Urgent
Comprehensive Metabolic Panel Urgent
Lipase Urgent
02/27/25 16:23
Piperacillin/Tazo 4.5 Gram [Zosyn] 4.5 gram in 100 ml IV NOW
02/27/25 16:25
0.9% Sodium Chloride 1000 ml [Nss] 1,000 ml IV BOLUS
02/27/25 16:47
Ertapenem [Invanz] 1,000 mg 0.9% Sodium Chloride [Nss] 50 ml IV NOW
02/27/25 16:52
PTT Urgent
Prothrombin Time Urgent
02/27/25 17:00
Prothrombin Complex(Pcc),Human [Kcentra] 4,786 unit Empty Viaflex Container 250 ml [Viaflex Empty Container] 180 ml IV NOW
02/27/25 17:24
Dextrose 50%-Water [Dextrose 50% Syringe] 12.5 grams IV PROCEDURE-PRN PRN
Fentanyl Citrate/Pf [Sublimaze] 25 mcg IV [id number] PRN
HYDROmorphone [Dilaudid] 0.25 mg IV PACU-Q5MPRN PRN
HYDROmorphone [Dilaudid] 0.5 mg IV PACU-Q5MPRN PRN
Insulin Aspart [NOVOLOG vial] See Protocol SC PROCEDURE- Q2H PRN PRN
Ondansetron Injectable [Zofran] 4 mg IV PACU-ONCEPRN PRN
Prochlorperazine [Compazine] 5 mg IV PACU-ONCEPRN PRN
Bedside Glucose Monitoring As Directed
Frequency: Q2H
Additional Instructions:: UNTIL PATIENT LEAVES PROCEDURE AREA
Notify MD As Directed
Notify physician if: for SDS patients with known or suspected sleep obstructive sleep apnea, monitor in the
PACU.
Notify MD for any apneic/desaturation episodes
O2 Therapy [RESP] Urgent
Titrate/Wean O2 to maintain O2 sat greater than (%): 92
Special Instructions: -Provide supplemental oxygen to achieve O2 sat of 92% or greater.
-After 15 min, may wean O2 and discontinue if patient is able to maintain O2 sat of 92%
or greater during recovery period.
If patient is a discharge home, without oxygen therapy, notify anestheiologist if
unable to maintain O2 SAT of 92% or greater on room air for MD clearance.
02/27/25 17:30
Normosol (Mult Electrolytes) [Normosol-R/Plasmalyte-A] 1,000 ml IV PER PROTOCOL
02/27/25 18:14
HYDROmorphone [Dilaudid] 0.5 mg IV Q2HPRN PRN
HYDROmorphone [Dilaudid] 1 mg IV Q2HPRN PRN
Ketorolac [Toradol] 10 mg IV Q6HPRN PRN
02/27/25 18:15
Prochlorperazine [Compazine] 10 mg IV Q6HPRN PRN
02/27/25 18:24
Admit Patient As Directed
Co-Sign Provider:
Level of Care: Inpatient admission
Assign to:: Telemetry
Physician / Group: Jaime
Diagnosis: Pneumoperitoneum
Reason for Telemetry: Arrhythmia
Date to Stop Telemetry: 03/02/25
Time to Stop Telemetry: 11:00
Reason for Hospitalization: Pneumoperitoneum
Expected length of stay greater than two midnights?: Yes
ELOS- Estimated Length of Stay in days: 7
I certify the patient meets the requirements for IP care: Yes
Code Status As Directed
Resuscitation Status: Full Code
Activity As Directed
Activity Level: Out of Bed-Early Mobility
Intake/ Output As Directed
Frequency: Per unit guidelines
Vital Signs As Directed
Frequency: Per unit guidelines
PRN Pain Medication Management As Directed
May give lesser potent ordered pain med per pt: Yes
preference::
Protocol:: Medication orders for pain may be administered in a
manner that supports deferring to patient preference
when the pt is:
- Requesting an ordered lesser potent pain medication.
Least to most potent pain medications are defined
as: acetaminophen < NSAID < tramadol < opioids
(morphine, oxycodone, hydromorphone).
- Requesting a lesser dose of the same medication IF
ORDERED.
- Requesting a less intrusive route of administration
if both routes are prescribed by the provider (PO <
IV).
02/27/25 18:25
Rx Incentive Spirometry [RESP] Routine
Frequency: q1h while awake
# of times per hour: 10
02/27/25 18:30
Normosol (Mult Electrolytes) [Normosol-R/Plasmalyte-A] 1,000 ml IV 125 mls/hr
02/27/25 18:50
Dexamethasone Sod Phosphate [Decadron] 20 mg .ROUTE .STK-MED ONE
Lidocaine 2% Mpf [Xylocaine Mpf 2%] 100 mg .ROUTE .STK-MED ONE
Ondansetron Injectable [Zofran] 4 mg .ROUTE .STK-MED ONE
Propofol [Diprivan] 20 ml .ROUTE .STK-MED
Rocuronium [place] [Rocuronium] 100 mg .ROUTE .STK-MED ONE
02/27/25 18:51
Fentanyl Citrate/Pf [Sublimaze] 100 mcg .ROUTE .STK-MED ONE
Midazolam HCl [Versed] 2 mg .ROUTE .STK-MED ONE
02/27/25 19:00
Metoprolol [Lopressor] 5 mg IV Q6HPRN
02/27/25 22:00
Piperacillin/Tazo 3.375 Gram [Zosyn] 3.375 gram in 50 ml IV Q6H
02/28/25 00:00
Acetaminophen 1000MG/100Ml [Ofirmev] 1,000 mg in 100 ml IV Q6H
Acetaminophen IV Indication:: Ileus/Delayed Bowel Func.
02/28/25 18:00
Enoxaparin Sodium [Lovenox] 40 mg SC QPM
03/02/25 11:00
DC Protocol for Telemetry ONCE
Abnormal Lab Results
02/27/25 02/27/25
12:37 16:52
WBC 15.5 H 10^3/uL
(4.8-10.8)
RBC 4.31 L 10^6/uL
(4.70-6.10)
Abs Immat Gran (auto) 0.1 H 10^3/uL
(0-0.05)
Absolute Neuts (auto) 14.5 H 10^3/uL
(1.4-6.5)
Absolute Lymphs (auto) 0.5 L 10^3/uL
(1.2-3.4)
Immature Gran % 0.7 H %
(0-0.5)
Neutrophils % 93.6 H %
(42.2-75.2)
Lymphocytes % 3.3 L %
(20.5-51.1)
PT 19.9 H Sec
(11.4-14.6)
BUN 23 H mg/dl
(9-20)
Glucose 180 H mg/dl
(70-99)
Albumin 3.3 L g/dl
(3.5-5.0)
Crossmatch IS Only See Detail
02/27/25 12:37
02/27/25 12:37
Vital Signs
Initial and Last Documented VS:
Initial Vital Signs
Pulse Resp Pulse Ox
114 33 94
02/27/25 12:15 02/27/25 12:15 02/27/25 12:15
Last Documented Vital Signs
Temp Pulse Resp BP Pulse Ox
97.6 F 131 27 126/71 94
03/01/25 16:45 03/01/25 14:46 03/01/25 14:06 03/01/25 14:06 03/01/25 14:06
*Pulse Oximetry
SaO2: 98
Oxygen Mode of Delivery: Room air
Patient hypoxic: no
*EKG
Interpreted by ED Provider?: Yes
Interpretation: abnormal
Comparison EKG: changes noted
Heart Rate: 107
Rate: tachycardiac
Rhythm: a-fib
[place]: normal axis
Interval: normal interval
QRS Pattern: normal QRS
Ischemia: non-specific ST changes
*Final Inspector Paper Interpretation
Rate: tachycardiac
Interpretation: abnormal
Heart Rate: 122
Rhythm: a-fib
*Critical Care Note
Total Time (30-74mins, 75-104mins- exclusive of procedures): 50
Update Note
Update Note:
1625...Patient was seen earlier by colorectal. CT report shows an anastomotic leak. Patient updated. Appears more ill at this time. More pale slightly diaphoretic. More rapid atrial fibrillation. Antibiotics were ordered. Will add fluids.
Colorectal surgery contacted.
1730... Patient awaiting the OR. Recheck. Remains in atrial fibrillation with some mild RVR. Blood pressures remained stable. Pulse ox 92 to 94%. Will place on oxygen. Received antibiotics. Receiving Kcentra now.
ED Attending Note
-
Portions of this chart may have been created with voice recognition software.� Occasional wrong word or��sound alike� substitutions may have occurred due to the inherent limitations of voice recognition software.
Discharge Plan
Departure
Patient Disposition: Admit
Date of Disposition: 02/27/25
Time of Disposition: 16:32
Presentation/result/management discussed w/ accepting MD/DO: surgery
Discharge Problem:
anastomatic leak. , recent colostomy reversal, sepsis, afib/rvr
Interventions
Interventions:
*Risk Screen - Suicide Last Done: 02/27/25 22:18
*General Assessment Last Done: 02/27/25 12:23
*Neglect/Abuse Screening Last Done: 02/27/25 12:16
*ED- Fall Risk Assessment Last Done: 02/27/25 12:22
*Nursing Disposition Last Done: 02/27/25 19:04
RI-Thjoig-Tbnqzzieij Assessment Last Done: 02/27/25 12:23
Discharge Date and Time
Discharge Date/Time: 02/27/25 18:35
[2025-02-27] MEDS: NSS 1000 IV (16:41)
[2025-02-27] MEDS: ZOSYN 100 IV (16:42)
[2025-02-27 17:26] LABS: INR 1.67; PT 19.9 Sec (11.4-14.6)
[2025-02-27 17:27] LABS: APTT 28.0 Sec (23.4-35.0)
[2025-02-27] MEDS: KCENTRA 180 UNIT IV (17:31)
[2025-02-27 20:22] LABS: B.E. - POC -2.8 mmol/L; Glucose - POC 162 mg/dl (70-99); HCO3 - POC 23 mmol/L (21-28); Hematocrit - POC 37 % PCV (42-52); Hemodilution- POC Yes; Hemoglobin Calculated - POC 12.7; Ionized Calcium - POC 1.49 mmol/L (1.15-1.33); Lactate - POC 2.89 mmol/L (0.36-0.75); O2 Saturation %Calculated-POC 99.0 % (94-98); PCO2 - POC 41 mmHg (35-48); PO2 - POC 140 mmHg (83-108); Potassium - POC 2.8 mmol/L (3.5-5.1); Sodium - POC 140 mmol/L (136-145); Specimen Type - POC Arterial; pH - POC 7.35 (7.35-7.45)
--- NOTE | 2025-02-27 21:32 | W.IMMPOSTOP ---
Surgical Immed Post Op Note
-
Primary Surgeon: Jaime
Assisting Surgeon: Fox
Pre-op Diagnosis: Pneumoperitoneum
Post-op Diagnosis: Anastomotic leak
Procedure Performed: Exploratory laparotomy, colon resection, creation end colostomy
Anesthesia Type: GETA
Specimen / Cultures: [place]-colonic anastomosis
Estimated Blood Loss: 40cc
Complications: None immediate
Operative Findings: Release of air upon entering abdomen, extensive feculent contamination, disruption of anastomosis encompassing roughly 40% of common channel staple line; anastomosis resected with 80mm purple load FREDY staplers, end colostomy
created and matured through prior stoma site; irrigated until effluent clear, 19 fr suresh drains to right and left abdomen
Remained intubated at case conclusion
6mcg levo
oliguric
2 hour operative time
NGT
Daughters updated by phone
--- NOTE | 2025-02-27 22:15 | CON.HOSP ---
Family Physician
-
Family Physician: Aubrey Saxena
Chief Complaint
-
abdominal pain
History of Present Illness
74-year-old male past medical history of perforated diverticulitis status post exploratory laparotomy takedown of splenic fissure drainage of intra-abdominal abscess and creation of end colostomy and recent reanastomosis/reversal of colostomy on
02/21, atrial fibrillation, hyperlipidemia, chronic CHF, obstructive sleep apnea, DVT/PE, BPH, subdural hematoma, cholelithiasis, obesity, anxiety/depression, presenting with sudden pop at colostomy site today graves of pain down his lower abdomen
followed by nausea and episode of vomiting today.
He had CAT scan in the emergency room which showed postoperative leak at the left colonic anastomosis with extraluminal contrast. Large degree of pneumoperitoneum.
He was seen by surgery and underwent exploratory laparotomy, colon resection, creation of end colostomy. He had 40 cc blood loss. NG tube was placed. He is currently on Levophed.
Medical History
Past Medical History
Past Medical History: Reports Other (perforated diverticulitis status post exploratory laparotomy takedown of splenic fissure drainage of intra-abdominal abscess and creation of end colostomy and recent reanastomosis/reversal of colostomy on 02/21,
atrial fibrillation, hyperlipidemia, chronic CHF, obstructive sleep apnea, DVT/PE, BPH, s)
Past Surgical History: Reports Other (exploratory laparotomy and takedown of splenic fissure drainage of intra-abdominal abscess/creation of end colostomy on 11/15 and subsequent reanastomosis/reversal of colostomy on 02/21)
Social History
Tobacco: Non-smoker
Alcohol: None
Drug: None
Allergies / Home Medications
Allergies reflects when Allergies were last updated in [employer].
Home Medications with original date entered in [employer]
Allergy/Medication List:
Allergies
Allergy/AdvReac Type Severity Reaction Status Date / Time
No Known Allergies Allergy Unverified 02/15/25 10:32
Home Medications
apixaban 5 mg tablet (Eliquis) 5 mg PO BID Blood Clot Prevention/Tx 11/14/24
ascorbic acid (vitamin C) 1,000 mg tablet (Vitamin C) 1,000 mg PO DAILY Supplement 11/14/24
aspirin 81 mg tablet 81 mg PO DAILY Blood Clot Prevention/Tx 11/14/24
cyanocobalamin (vitamin B-12) 1,000 mcg tablet (Vitamin B-12) 1,000 mcg PO DAILY Supplement 11/14/24
dutasteride 0.5 mg capsule 0.5 mg PO DAILY Urinary Issue 11/14/24
famotidine 40 mg tablet 40 mg PO DAILY Gastrointestinal Issue 11/14/24
fluoxetine 20 mg capsule 20 mg PO HS Mental Health/Anxiety 11/14/24
furosemide 40 mg tablet 40 mg PO DAILY Fluid Retention/Swelling 11/14/24
metoprolol tartrate 25 mg tablet 25 mg PO HS Blood Pressure 11/14/24
metoprolol tartrate 50 mg tablet 50 mg PO DAILY Blood Pressure 11/14/24
multivitamin 1 tab PO DAILY Supplement 11/14/24
simvastatin 20 mg tablet 20 mg PO HS High Cholesterol 11/14/24
vibegron 75 mg tablet (Gemtesa) 75 mg PO HS Urinary Issue 11/14/24
oxycodone 5 mg tablet 5 mg PO Q4HPRN PRN breakthrough/severe pain #7 tabs 02/25/25
polyvinyl alcohol 1.4 % eye drops (Artificial Tears (polyvinyl alcohol)) 1 drp ophthalmic (eye) DAILY PRN dry eyes 02/27/25
Review of Systems
-
History Source: Physician
A 12 point Review of Systems was completed except as noted: No
Physical Exam
Vital Signs
Vital Signs
Temp Pulse Resp BP Pulse Ox
99.2 F 126 22 152/86 96
02/27/25 16:47 02/27/25 16:47 02/27/25 16:47 02/27/25 16:47 02/27/25 16:47
Physical Exam
General: Well Developed, Well Nourished and No Apparent Distress
HEENT: Normocephalic, Moist Mucous Membranes and Atraumatic
Respiratory: Clear
Cardiac: S1/S2 and Regular Rhythm; Negative Murmur or Rub
GI: Soft, Non Tender, Non Distended and Normal Bowel Sounds
Rectal: Deferred by Provider
Musculoskeletal: No Clubbing, No Cyanosis and No Edema
Skin: Negative Rash
Neuro: Nonfocal/Grossly Intact
Laboratory Results
-
PT 19.9 Sec (11.4-14.6) H 02/27/25 16:52
INR 1.67 02/27/25 16:52
APTT 28.0 Sec (23.4-35.0) 02/27/25 16:52
Total Bilirubin 1.1 mg/dl (0.2-1.3) 02/27/25 12:37
AST 21 U/L (17-59) 02/27/25 12:37
ALT 22 U/L (0-50) 02/27/25 12:37
Alkaline Phosphatase 86 U/L (38-126) 02/27/25 12:37
Lipase 54 U/L (23-300) 02/27/25 12:37
Data Reviewed
-
Lab Data: Labs Reviewed
Old Records: Reviewed
Impression / Plan
-
IMPRESSION:
PLAN:
# Postoperative anastomotic leak status post exploratory laparotomy, colon resection and creation of end colostomy
# History of perforated diverticulitis status post exploratory laparotomy and takedown of splenic fissure drainage of intra-abdominal abscess/creation of end colostomy on 11/15 and subsequent reanastomosis/reversal of colostomy on 02/21
-Patient SUSAN drain
-Patient received Kcentra to reverse Eliquis prior to surgery
-Patient with NG tube and Hartman catheter
-IV fluids, monitor urine output
-Zosyn
-Managed by general surgery
-Patient currently intubated
-Propofol and fentanyl drip to be started
- Patient can start Lovenox for DVT prophylaxis tomorrow as per surgery
# Hyperglycemia secondary to stress response
-Blood sugar 180
- Insulin sliding scale
- Check A1c
Paroxysmal atrial fibrillation
-Patient in A-fib heart rates up to 120s
- Patient on IV metoprolol every [address] of p[address] metoprolol
- Hold Eliquis
- Hold aspirin
History of heart failure
- Hold Lasix
Hyperlipidemia
- Hold statin
Obstructive sleep apnea
History of DVT/PE
BPH
- Hold dutasteride
History of subdural hematoma
Cholelithiasis
Obesity
Anxiety/depression
- Hold fluoxetine
Full code
DVT prophylaxis�SCDs
N.p.o.
[2025-02-27 22:23] LABS: Glucose - Point of Care 143 mg/dl (70-99)
[2025-02-27] MEDS: DIPRIVAN 100 IV (22:30)
[2025-02-27 22:58] LABS: B.E. -2.7 mmol/L; HCO3 22.6 mmol/L (21-28); O2 Saturation % 100.0 % (94-98); PCO2 40 mmHg (35-48); PO2 175 mmHg (83-108)
[2025-02-27 22:59] LABS: Hematocrit 39.2 % (39.0-52.0); Hemoglobin 13.4 g/dL (13.0-18.0); Mean Corp Hgb Conc. 34.2 g/dL (33.0-37.0); Mean Corpuscular Volume 91.6 fL (80.0-94.0); Platelet Count 392 10^3/uL (130-400); Red Cell Dist. Width 14.3 % (11.5-14.5)
[2025-02-27] MEDS: SUBLIMAZE 100 MCG IV (22:59)
[2025-02-27] MEDS: ZOSYN 50 IV (23:01)
[2025-02-27] MEDS: SUBLIMAZE 100 IV (23:02)
[2025-02-27] MEDS: NORMOSOL-R/PLASMALYTE-A IV (23:02)
[2025-02-27 23:24] LABS: Albumin 2.2 g/dl (3.5-5.0); Blood Urea Nitrogen 22 mg/dl (9-20); Calcium 8.8 mg/dl (8.4-10.2); Carbon Dioxide 21 mmol/L (22-30); Chloride 108 mmol/L (98-107); Estimated Creatinine Clearance 101 ml/min; Glucose 158 mg/dl (70-99); Magnesium 1.9 mg/dl (1.6-2.3); Potassium 4.3 mmol/L (3.5-5.1); Sodium 136 mmol/L (135-145); Triglycerides 55 mg/dl (10-149); eGFR > 60.00
--- NOTE | 2025-02-27 23:30 | PTCARENOTE ---
Pt arrived from OR ~2214, intubated with Levophed infusing 6 mcg/min. Bedside report with [employer] and Dr Fonseca. Pt's 2 daughters arrived at bedside shortly after pt arrived to unit.
Pt AAO, difficult to assess orientation d/t sedation. Pt will nod head seemingly appropriately. #8 ETT secured to R lip at 24cm, vent settings per order, pox 95-100%. Telemetry rhythm reveals Afib, HR 100-130's, generalized anasarca noted, palpable
peripheral pulses present, knee high SCDs in use. No BS at this time, abdomen with post op midline incision, ostomy and b/l abdominal SUSAN drains (sanguinous output). L nare NGT to LIWS, green output noted. Hartman catheter draining yellow urine w
sediment. R FA and L w int's flushed and patent. Received pt from OR with Levophed infusing at 6mcg/min. Propofol and Fentanyl per orders, see flowsheet for full details. L radial arterial line transduced, zeroed and flushed; a-line very positional.
Safe environment maintained. b/l wrist soft restraints in use. Repositioning pt Q2H. Will monitor closely.
[2025-02-28] VITALS (30 sets, daily range): BP systolic 75–157; BP diastolic 51–83; BMI 37.8
[2025-02-28 00:05] LABS: Glucose - Point of Care 163 mg/dl (70-99)
[2025-02-28] MEDS: FLUSH (NSS) 2 FLUSH IV (00:54)
[2025-02-28] MEDS: COMPAZINE 10 MG IV (00:54)
[2025-02-28] MEDS: OFIRMEV 100 IV ×4 (00:57→17:50)
--- NOTE | 2025-02-28 00:58 | W.PN.SEPSIS ---
Sepsis
Vital Signs
Temp Pulse Resp BP Pulse Ox
99.9 F 115 16 126/62 98
02/28/25 00:19 02/28/25 00:00 02/28/25 00:00 02/28/25 00:00 02/28/25 00:00
Physical Exam
Physical Exam:
A focused exam was performed after fluid resuscitation.
Capillary Refill
Bilateral Upper Extremity:
[place] Time: Less than 3 sec
Bilateral Lower Extremity:
[place] Time: Less than 3 sec
Pulse Evaluation
Bilateral Radial:
Pulse Evaluation: Present
Bilateral Dorsalis Pedis:
Pulse Evaluation: Present
[2025-02-28] MEDS: NORMOSOL-R/PLASMALYTE-A 1000 IV (01:14)
[2025-02-28] MEDS: NOVOLOG FLEXPEN-LOW RESISTANCE 1 UNITS SC ×3 (01:16→11:48)
[2025-02-28] MEDS: FLEXBUMIN 100 IV (02:35)
[2025-02-28] MEDS: LEVOPHED 250 IV ×2 (02:40→09:30)
[2025-02-28] MEDS: NSS 500 IV (02:45)
[2025-02-28 03:17] LABS: Hematocrit 37.8 % (39.0-52.0); Hemoglobin 12.8 g/dL (13.0-18.0); Mean Corp Hgb Conc. 33.9 g/dL (33.0-37.0); Mean Corpuscular Volume 91.5 fL (80.0-94.0); Platelet Count 403 10^3/uL (130-400); Red Cell Dist. Width 14.1 % (11.5-14.5)
[2025-02-28 03:22] LABS: B.E. -3.5 mmol/L; HCO3 20.3 mmol/L (21-28); O2 Saturation % 99.5 % (94-98); PCO2 32 mmHg (35-48); PO2 131 mmHg (83-108)
[2025-02-28 03:36] LABS: ALT (SGPT) 17 U/L (0-50); AST (SGOT) 22 U/L (17-59); Albumin 2.1 g/dl (3.5-5.0); Alkaline Phosphatase 63 U/L (38-126); Magnesium 1.9 mg/dl (1.6-2.3); Total Protein 4.4 g/dl (6.3-8.2)
--- NOTE | 2025-02-28 04:22 | PTCARENOTE ---
No change in pt assessment. Pt will open eyes when staff walks into room. Nods head 'yes'/'no' seemingly appropriately. Nodded head 'no' when asked if he was feeling nauseous or experiencing pain at the moment. Will continue to monitor closely.
[2025-02-28] MEDS: ZOSYN 50 IV ×4 (04:24→21:22)
[2025-02-28 05:23] LABS: Glucose - Point of Care 152 mg/dl (70-99)
[2025-02-28 05:31] LABS: Blood Urea Nitrogen 25 mg/dl (9-20); Calcium 8.6 mg/dl (8.4-10.2); Carbon Dioxide 19 mmol/L (22-30); Chloride 110 mmol/L (98-107); Estimated Creatinine Clearance 90 ml/min; Glucose 155 mg/dl (70-99); Potassium 4.1 mmol/L (3.5-5.1); Sodium 134 mmol/L (135-145); eGFR > 60.00
[2025-02-28] MEDS: LOPRESSOR IV (06:11)
--- NOTE | 2025-02-28 08:00 | PTCARENOTE ---
Assumed care of patient. Pt rec'd sedated on ventilator. Easily arousable. Nods head appropriately. Soft wrist restraints on. Able to BAZZI's but weak. Denies pain at present. S1 S2 irregular w/ afib on monitor. Weak PP. +1 generalized edema.
Knee hi SCD's on. Heels elevated on pillows. #8 ETT 24cm ctr lip...current vent settings: 16-550-5-40%...sats 99-100%. Lungs clear...diminished in bases. Abdomen round...no BS. Left kortney alvarez @ 75cm -> LIWS. LUQ colostomy...pink/red budded
stoma...no output. Hartman draining [place]orence urine. Skin pale in color. Mid abdominal incision w/ original post op dressing...shadowing noted. Bilateral SUSAN's w/ sero sang drainage and intact dressings. Left radial roxanne...flushed and zeroed.
Bilateral INT's...IVF's, fentanyl, propofol, and levophed gtts infusing...see interventions. VS documented. Safe environment confirmed. Will continue to monitor closely.
--- NOTE | 2025-02-28 08:28 | CON.INTV ---
Consultation
Consultation Request
Date/Time Consultation Requested: 02/27/2025 - 2208
Date/Time Consultation Performed: 02/28/2025 - 823
Requesting Provider: KALEY Diaz
Performing Provider: Dr. May
Reason for Consultation: post-op management/intubated
Medical History
-
Chief Complaint: Abdominal pain
History of Present Illness:
74-year-old male with a past medical history of diverticulitis who presents with left-sided abdominal pain also vomiting and chills. Patient had perforated diverticulitis in November and underwent an ex lap with splenic flexure takedown with a
intra-abdominal abscess drainage and creation of an end colostomy. On 02/21/2025, patient underwent colostomy reversal with hepatic flexure takedown and lysis of adhesions. Prior to arrival, the patient had a sudden pop at his colostomy site with
pain spreading down his lower abdomen followed by nausea and vomiting. CT abdomen/pelvis performed on 02/27/2025 showed postoperative leak at the left colonic anastomosis site with extraluminal contrast, and a large degree of pneumoperitoneum.
General surgery was consulted and an exploratory laparotomy with colon resection and creation of an end colostomy was performed. Patient remained intubated and was transferred to the ICU postoperatively. Hairspring Inspector services consulted for
additional management/recommendations.
Patient seen and evaluated this morning. Remains intubated on a CPAP trial 5/5 with PIP 11 cmH2O, VTe 421 mL and breathing at 18 breaths/minute. A line present with poor waveform with BP 97/87, BP via NIBP is 123/53, heart rate 129. Levo at
6mcg/min, NS at 125cc/hr; prop at 10mcg/kg/min. He is sedated although arousable by voice. Patient's family is at bedside and all questions were answered.
PMHx: Hypertension, A-fib on Eliquis, history diverticulitis, hyperlipidemia, chronic CHF, sleep apnea, history of DVT/PE, cholelithiasis, prediabetes
PSHx: Left total knee surgery, sigmoid colectomy, ex lap with splenic flexure takedown, drainage of intra-abdominal abscess and creation of end colostomy (11/15/2024), brain surgery
Past Medical History
Past Medical History: Other (Above as per HPI)
Past Surgical History: Other (Above as per HPI)
Social History
Tobacco: Non-smoker
Alcohol: None
Drug: None
Employment: Retired
Family History
Family History: Reviewed & Not Pertinent
Allergies / Home Medications
Allergies
Allergy/AdvReac Type Severity Reaction Status Date / Time
No Known Allergies Allergy Unverified 02/15/25 10:32
Home Medications
�Medication �Instructions �Recorded �Confirmed �Last Taken �Type
apixaban 5 mg tablet (Eliquis) 5 mg PO BID Blood Clot 11/14/24 02/27/25 02/27/25 History
Prevention/Tx
ascorbic acid (vitamin C) 1,000 mg 1,000 mg PO DAILY Supplement 11/14/24 02/27/25 02/27/25 History
tablet (Vitamin C)
aspirin 81 mg tablet 81 mg PO DAILY Blood Clot 11/14/24 02/27/25 02/27/25 History
Prevention/Tx
cyanocobalamin (vitamin B-12) 1,000 mcg PO DAILY Supplement 11/14/24 02/27/25 02/27/25 History
1,000 mcg tablet (Vitamin B-12)
dutasteride 0.5 mg capsule 0.5 mg PO DAILY Urinary Issue 11/14/24 02/27/25 02/27/25 History
famotidine 40 mg tablet 40 mg PO DAILY Gastrointestinal 11/14/24 02/27/25 02/27/25 History
Issue
fluoxetine 20 mg capsule 20 mg PO HS Mental Health/Anxiety 11/14/24 02/27/25 02/26/25 History
furosemide 40 mg tablet 40 mg PO DAILY Fluid 11/14/24 02/27/25 02/27/25 History
Retention/Swelling
metoprolol tartrate 25 mg tablet 25 mg PO HS Blood Pressure 0602/27/25 02/26/25 History
metoprolol tartrate 50 mg tablet 50 mg PO DAILY Blood Pressure 11/14/24 02/27/25 02/27/25 History
multivitamin 1 tab PO DAILY Supplement 11/14/24 02/27/25 02/27/25 History
simvastatin 20 mg tablet 20 mg PO HS High Cholesterol 11/14/24 02/27/25 02/26/25 History
vibegron 75 mg tablet (Gemtesa) 75 mg PO HS Urinary Issue 11/14/24 02/27/25 02/26/25 History
oxycodone 5 mg tablet 5 mg PO Q4HPRN PRN 02/25/25 02/27/25 02/27/25 Rx
breakthrough/severe pain #7 tabs
polyvinyl alcohol 1.4 % eye drops 1 drp ophthalmic (eye) DAILY PRN 02/27/25 02/27/25 Unknown History
(Artificial Tears (polyvinyl dry eyes
alcohol))
Review of Systems
-
Unable to Obtain full review of systems at this time due to: Patient Intubation
Vitals / Labs / Diagnostic Testing
Vital Signs
Temp Pulse Resp BP Pulse Ox
99 F 122 20 90/50 94
02/28/25 07:21 02/28/25 08:35 02/28/25 08:35 02/28/25 06:11 02/28/25 08:35
Lab Data
02/28/25 03:07
02/28/25 02:57
Laboratory Results
02/27/25 02/27/25 02/28/25
16:52 22:49 02:59
PT 19.9 H
INR 1.67
APTT 28.0
pH 7.36 7.41
pCO2 40 32 L
pO2 175 H 131 H
HCO3 22.6 20.3 L
O2 Delivery Level
Diagnostic Testing:
Physical Exam
-
HEENT: Normocephalic, Anicteric and Other (ETT in place)
Cardiovascular: Irregular Rhythm (Irregularly irregular)
Respiratory: Wheeze (negative), Rales (negative), Rhonchi (negative), Non-Labored Respirations and Other (Mechanical breath sounds heard bilaterally)
GI: Soft, Distended (Abdominal obesity), Non Tender and Normal Bowel Sounds
Neurology: Tremors (negative) and Other (Sedated)
Skin: Warm and Dry
General: Respiratory Distress (negative), Comfortable, Fever (negative) and Chills (negative)
Assessment
-
Assessment: 74-year-old male with a past medical history of diverticulitis who presents with left-sided abdominal pain also vomiting and chills. Patient had perforated diverticulitis in November and underwent an ex lap with splenic flexure takedown
with a intra-abdominal abscess drainage and creation of an end colostomy. On 02/21/2025, patient underwent colostomy reversal with hepatic flexure takedown and lysis of adhesions. Prior to arrival, the patient had a sudden pop at his colostomy site
with pain spreading down his lower abdomen followed by nausea and vomiting. CT abdomen/pelvis performed on 02/27/2025 showed postoperative leak at the left colonic anastomosis site with extraluminal contrast, and a large degree of pneumoperitoneum.
General surgery was consulted and an exploratory laparotomy with colon resection and creation of an end colostomy was performed. Patient remained intubated and was transferred to the ICU postoperatively. Hairspring Inspector services consulted for
additional management/recommendations.
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
Impression:
#Pneumoperitoneum due to anastomotic leak s/p exploratory laparotomy with colon resection and end colostomy creation (POD #1)
#Leukocytosis likely due to above with suspected transient bacteremia with sepsis
#Circulatory shock in the setting of sedation and transient bacteremia due to anastomotic leak
#Acute anemia (mild)
#Thrombocytosis likely reactive due to above
#Lactic acidosis
#Hyperbilirubinemia
#Hypoalbuminemia
#History of perforated diverticulitis s/p ex lap with splenic flexure takedown, drainage of intra-abdominal abscess and end colostomy creation (11/15/2024) with colostomy reversal, hepatic flexure takedown and lysis of adhesions (02/21/2025)
#A-fib on Eliquis now in RVR
#Chronic CHF
#Hypertension
Plan:
- Postoperative management as per general surgery
- Continue with mechanical ventilation with daily SAT/SBT if clinically appropriate -> if no imminent plans to bring patient back to the OR, then hopefully can extubate today
- Maintain plateau pressure <30 and titrate FiO2 + PEEP to keep SpO2 >90-94%
- Continue aspiration precautions; keep HOB >30-45�
- prn nebulized bronchodilators - not currently bronchospastic
- Oropharyngeal + deep ETT suctioning with subglottic as needed
- Daily CXR + blood gas
- Daily vent adjustments as needed based on blood gas and SaO2
- Low level of sedation with goal RASS as 0 to -2
- Maintain MAP>65, weaning down on Levophed as tolerated
- Replete calcium levels
- Consider given supplemental albumin if having continued difficulty weaning fully off Levophed
- If Levophed requirements increase towards 10 mcg/min then start vasopressin
- Heart rate is labile and uncontrolled � unable to give him his home medication of metoprolol as he remains NPO given his postoperative status
- Continue with q6hr IV Lopressor
- May need amiodarone infusion
- I will consult cardiology
- Check echo
- Replete electrolytes with K>4, Mg>2
- Maintain euglycemia with goal BG 140-180; HbA1c: 6.2 on 02/28/2025
- Trend H/H and transfuse if needed to keep Hb>7g/dL; keep plt>50k (given postoperative status)
- DVT ppx: LMWH
Continue ICU level of care for this critically ill patient
Critical care statement: A total of 38 minutes of critical care time was provided for this patient today. This includes management of unstable vital signs, evaluation of the patient at bedside, reviewing the patient's pertinent medical records
including radiographs, microbiology, laboratory evaluations, and discussion with primary team, consultants, pharmacy, nutrition, physical therapy, case management, charge nurse, critical care nursing, and respiratory therapy.
Data:
CT abdomen/pelvis with IV and oral contrast 02/27/2025:
1. Postoperative leak at the left colonic anastomosis, with extraluminal contrast. Large degree of pneumoperitoneum.
2. Trace bilateral pleural effusions with associated probable atelectasis. Cannot rule out superimposed left lower lobe pneumonia.
3. Stable probable benign bilateral renal cysts. Stable indeterminate 1.5 cm left renal lesion. Consider outpatient workup with dedicated renal mass protocol CT or MRI.
--- NOTE | 2025-02-28 09:29 | W.PN.GS2 ---
Addendum entered and electronically signed by Sahil Sandoval MD 02/28/25 09:59:
Daughter updated by phone
Addendum entered and electronically signed by Sahil Sandoval MD 02/28/25 09:57:
Correction Tmax 100.6F
Original Note:
Today's Communication / Plan
-
Wean vent and pressors
NGT
IV abx
Assessment / Plan
-
74M POD1 s/p ex lap, colon resection, end colostomy creation for anastomotic leak, POD7 s/p reversal of end colostomy
Afebrile, 10mcg levo infusing, UOP adequate, H/H stable, drains ss
Plan:
Wean vent and pressors as ayesha
NPO/NGT to LIWS
Monitor for stoma function
IV zosyn
PRN pain meds and antiemetics
Lovenox and SCDs for ppx
Subjective Data
-
Date of Service: February 28, 2025
Intubated, sedated, easily rousable, shakes head no when asked about pain and nausea
Objective Data
-
Intake and Output
02/27/25 02/28/25 03/01/25
06:59 06:59 06:59
Intake Total 1449.2 / 1612.9 163.7 / 163.7
Output Total 760 / 845 85 / 85
Balance 689.2 / 767.9 78.7 / 78.7
Intake:
IV fluids (Total) 1049.2 / 1212.9 163.7 / 163.7
Fentanyl 22.5 / 25.0 2.5 / 2.5
Levophed 255.0 / 285.0 30 / 30
Normosol-R/Plasmalyte-A 1,000 750 / 875 125 / 125
ml @ 125 mls/hr IV .Q8H [facility] Rx#
:[id number]
Propofol 21.7 / 27.9 6.2 / 6.2
IV piggybacks 300 / 300
Blood Products 100 / 100
Albumin 25% 100 / 100
Output:
Drain Output (Total) 235 / 320 85 / 85
Left Abdomen Celso-Loyd 100 / 125 25 / 25
Right Abdomen Celso-Loyd 135 / 195 60 / 60
Gastrointestinal tube output ( 200 / 200
Total)
Glasscock Sump 200 / 200
Urine, Hoffman 325 / 325
Vital Signs
Temp Pulse Resp BP Pulse Ox
99 F 122 20 90/50 94
02/28/25 07:21 02/28/25 08:35 02/28/25 08:35 02/28/25 06:11 02/28/25 08:35
Lab Results
02/28/25 03:07
02/28/25 02:57
Calcium 8.6 mg/dl (8.4-10.2) 02/28/25 02:57
Phosphorus 4.0 mg/dl (2.5-4.5) 02/28/25 02:57
Magnesium 1.9 mg/dl (1.6-2.3) 02/28/25 02:57
Total Bilirubin 3.5 mg/dl (0.2-1.3) H D 02/28/25 02:57
Direct Bilirubin 2.2 mg/dl (0.0-0.4) H 02/28/25 02:57
AST 22 U/L (17-59) 02/28/25 02:57
ALT 17 U/L (0-50) 02/28/25 02:57
Alkaline Phosphatase 63 U/L (38-126) 02/28/25 02:57
Total Protein 4.4 g/dl (6.3-8.2) L D 02/28/25 02:57
Albumin 2.1 g/dl (3.5-5.0) L 02/28/25 02:57
Physical Exam
-
Gen: intubated
Abd: soft, approp ttp, dressing cdi, drains ss, hoffman with dark yellow urine, stoma PPV with scant bowel sweat in appliance
Patient has a hoffman catheter: Yes
Patient has a central line: No
--- NOTE | 2025-02-28 10:00 | PTCARENOTE ---
Pt on CPAP/PSV wean this am. Fentanyl gtt d/c'd. Levophed gtt titrated to maintain MAP > 65.
[2025-02-28 10:20] LABS: Glycohemoglobin (HgbA1c) 6.2 % (4.0-5.6)
[2025-02-28] MEDS: LR 1000 IV ×3 (11:15→23:50)
[2025-02-28] MEDS: LOPRESSOR 5 MG IV ×3 (11:19→23:27)
[2025-02-28 11:33] LABS: B.E. -2.1 mmol/L; HCO3 22.3 mmol/L (21-28); O2 Saturation % 99.3 % (94-98); PCO2 36 mmHg (35-48); PO2 111 mmHg (83-108)
[2025-02-28] MEDS: PROTONIX IV 40 MG IV (11:47)
[2025-02-28] MEDS: NSS (PRESERVATIVE FREE) 10 ML IV (11:47)
--- NOTE | 2025-02-28 11:48 | CON.CAR ---
Addendum entered and electronically signed by Noel Dietz MD 02/28/25 16:26:
I saw and examined the patient.
The GEOTECHNICAL DEPARTMENT MANAGER's note was reviewed and I agree with the note.
Comment:
74-year-old man with atrial fibrillation (unknown type) on Eliquis, CHF, hypertension, PE/DVT. Cardiology is consulted for A-fib with RVR. He presented with perforated diverticulitis in November 2024. He had an elective reversal of his colostomy on
02/21. On 02/27 after he had been discharged from the hospital, he felt a popping sensation with associated nausea and vomiting. When he presented to the hospital, he was found to have free air in the abdomen and underwent ex lap yesterday.
Postoperatively he has had atrial fibrillation with RVR with HR in the 140-150s. He was initially in septic shock requiring vasopressors which have now been weaned down to norepinephrine 2 mcg. He was extubated earlier today and is now on 2 L
nasal cannula. He has received some IV fluid resuscitation but surgery was cautious given his known history of CHF. Patient tells me that he last had an echocardiogram in August with his engineering manager at [facility]. He is not sure what
his EF was.
Physical exam is notable for fast rate, irregular rhythm, no murmurs, clear lungs anteriorly, and no lower extremity edema
ECG by my review reveals atrial fibrillation with RVR
Atrial fibrillation with RVR: Would be generous with fluid resuscitation in the setting of septic shock, especially since he is breathing comfortably on 2 L nasal cannula. Give additional 1 L IVF now and continue continuous IVF. Wean
norepinephrine as tolerated. He is unable to take p.o. so if BP tolerates, we will continue IV metoprolol 5 mg Q6 for rate control. Goal HR <120 bpm. Surgery is planning to resume Eliquis tomorrow.
CHF: Repeat echo here. Outside records have been requested.
Original Note:
Consultation
Consultation Request
Date/Time Consultation Requested: 02/28/2025
Date/Time Consultation Performed: 02/28/2025
Requesting Provider: Todd May
Performing Provider: Noel Dietz
Reason for Consultation: A fib, in and out of rapid rate, post-op status
Medical History
-
Chief Complaint: Abd pain, 'popping sensation', nausea, vomiting
History of Present Illness:
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
elective colostomy reversal.
Pt was seen in [facility] in November 2024 for perforated diverticulitis. He underwent ex lap with splenic flexure take down, intra-abdominal abscess drainage, with creation of end colostomy. He was discharged home and returned on 02/21/2025 for elective end
colostomy reversal and reanastomosis, with hepatic flexure takedown and lysis of adhesions. He had an uncomplicated course and was discharged on 02/25. 2 days after returning home he noticed a sudden 'popping' sensation that was quickly followed by
abd pain, nausea and an episode of vomiting for which he returned to the ED.
On admission patient was hemodynamically stable, diaphoretic, and in A-fib with RVR. He had leukocytosis of 15.5, hemoglobin 13.1, lactic acidemia which is now downtrending. A CT scan of the abdomen and pelvis with IV, oral and rectal contrast
demonstrates a small anastomotic leak, with large amount of free air in the upper abdomen. He then underwent emergent ex lap and was found to have disruption of anastomosis encompassing roughly 40% of anastomosis site. He also had colon resection
and creation of new end colostomy. There was with extensive feculent contamination of the abdomen requiring significant flushing. Intraoperative cultures were sent for pathology. NG tube was placed. Patient was sent to ICU, initially requiring
ventilatory support and pressors. He was placed on IV Zosyn, and prn pain medication and antiemetics. Throughout his stay he remained in afib with RVR with rates into the 140s/150s. Cardiology was consulted for afib with RVR in post-op patient.
At the time of consult, patient is extubated, requiring 6mcg of levophed, still on IVF, having just received dose of IV pain medication. He is a bit drowsy but responsive. He is still in afib with variable RVR 120s-140s. He has no acute complaints
at this time. He is not experiencing any cp, sob. He was put on IV Lopressor, but had only received his first dose at 11AM, with nothing prior to that for at least 1-2 days due to GI sx and surgery. Baseline HR is unclear, pt does not know and
family (daughter) at bedside is also unsure. He has received care at [place] and other hospitals prior to coming here. He reports his last echo showed an EF of 45%, performed within the last 1-2 years.
Past Medical History
Past Medical History: Other (see plan)
Past Surgical History: Other ( colectomy 08/2024, colostomy 11/2024, subdural hematoma-irma holes/craniotomy 1990, tonsillectomy (child), L TKA 2016)
Social History
Tobacco: Non-Smoker
Alcohol: None
Drug: None
Family History
Family History: Reviewed & Not Pertinent
Allergies / Home Medications
Allergy/AdvReac Type Severity Reaction Status Date / Time
No Known Allergies Allergy Unverified 02/15/25 10:32
�Medication �Instructions �Recorded �Confirmed �Type
apixaban 5 mg tablet (Eliquis) 5 mg PO BID Blood Clot 11/14/24 02/27/25 History
Prevention/Tx
ascorbic acid (vitamin C) 1,000 mg 1,000 mg PO DAILY Supplement 11/14/24 02/27/25 History
tablet (Vitamin C)
aspirin 81 mg tablet 81 mg PO DAILY Blood Clot 11/14/24 02/27/25 History
Prevention/Tx
cyanocobalamin (vitamin B-12) 1,000 mcg PO DAILY Supplement 11/14/24 02/27/25 History
1,000 mcg tablet (Vitamin B-12)
dutasteride 0.5 mg capsule 0.5 mg PO DAILY Urinary Issue 11/14/24 02/27/25 History
famotidine 40 mg tablet 40 mg PO DAILY Gastrointestinal 11/14/24 02/27/25 History
Issue
fluoxetine 20 mg capsule 20 mg PO HS Mental Health/Anxiety 11/14/24 02/27/25 History
furosemide 40 mg tablet 40 mg PO DAILY Fluid 11/14/24 02/27/25 History
Retention/Swelling
metoprolol tartrate 25 mg tablet 25 mg PO HS Blood Pressure 11/14/24 02/27/25 History
metoprolol tartrate 50 mg tablet 50 mg PO DAILY Blood Pressure 11/14/24 02/27/25 History
multivitamin 1 tab PO DAILY Supplement 11/14/24 02/27/25 History
simvastatin 20 mg tablet 20 mg PO HS High Cholesterol 11/14/24 02/27/25 History
vibegron 75 mg tablet (Gemtesa) 75 mg PO HS Urinary Issue 11/14/24 02/27/25 History
oxycodone 5 mg tablet 5 mg PO Q4HPRN PRN 02/25/25 02/27/25 Rx
breakthrough/severe pain #7 tabs
polyvinyl alcohol 1.4 % eye drops 1 drp ophthalmic (eye) DAILY PRN 02/27/25 02/27/25 History
(Artificial Tears (polyvinyl dry eyes
alcohol))
Review of Systems
-
History Source: Patient and Family
All other systems: Negative unless noted
Physical Exam
Vital Signs
Temp Pulse Resp BP Pulse Ox
98.2 F 136 20 123/53 94
02/28/25 11:37 02/28/25 11:19 02/28/25 11:10 02/28/25 11:19 02/28/25 11:10
Lab Results
02/28/25 03:07
02/28/25 02:57
Physical Exam
General: Well Developed, Well Nourished, No Apparent Distress and Comfortable
HEENT: Normocephalic, Anicteric and Moist Mucous Membranes
Respiratory: Clear, Non Labored Respirations and Other (CPAP); Negative Wheezes, Crackles or Rhonchi
Cardiac: S1/S2 and Irregular Rhythm; Negative Murmur or Rub
Breast: N/A
GI: Soft, Non Distended and Other (Ostomy site with pink, healthy tissue, no surrounding erythema/induration. Abd dressings clean, dry and intact. Drain sites clean dry and intact, draining serosanguineous discharge)
Rectal: Deferred by Provider
Genito-urinary: Clear Urine
Musculoskeletal: No Clubbing, No Cyanosis and No Edema
Skin: Warm and Dry
Neuro: AO x 3
Psych: Calm
Impression / Plan
-
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
[facility] ED after discharge on 02/25 following elective colostomy reversal for repeated perforated diverticulitis in 11/2024, found to have anastomotic leak CT imaging with pneumoperitoneum (02/27) requiring ex lap with bowel resection and end colostomy
creation. He remains in ICU, extubated, on pressure support and in persistent Afib with RVR into the 140s.
#Unspecified Afib with RVR
- Home dose Lopressor is 50mg AM and 25mg PM -- baseline rate uncertain per pt history. We have no records to confirm
- currently pt on IV Lopressor 5mg Q6 with persistent RVR >110s w/o symptoms
- c/t wean Levophed
- c/w IV Lopressor 5mg Q6
- prioritize weaning levo over adjusting/increasing BB
- agree to restart OAC tomorrow in AM if OK with surgical team
- can transition to po BB when cleared for po
#Chronic HF, unspecified type
- last echo per patient presumably demonstrated LVEF of 45%
- will obtain records
- question of aggressive vs. nonaggressive fluid resuscitation following ex lap with colectomy and irrigation of abdomen with copious feculent drainage
- no clinical signs of volume overload or acute exacerbation of HF at this time
- will give extra 1L bolus LR
- will repeat Echo
Cardiology will follow
[2025-02-28 11:54] LABS: Glucose - Point of Care 160 mg/dl (70-99)
--- NOTE | 2025-02-28 12:00 | PTCARENOTE ---
Pt extubated per MD orders to 2L N/C. May use home CPAP qhs and prn. Restraints removed. Pt able to verbalize needs and cooperative w/ care. No major changes in physical assessment. Safe environment confirmed.
[2025-02-28] MEDS: NORMOSOL-R/PLASMALYTE-A IV (12:05)
[2025-02-28] MEDS: DILAUDID 0.25 MG IV (12:07)
--- NOTE | 2025-02-28 12:17 | RESPNOTE ---
placed on own cpap/ own mask. SPO2 91-93%, RR 18-20, HR 135.
--- NOTE | 2025-02-28 14:15 | CM ---
Initial assessment completed with daughter in room. Patient lives alone in a 2 story plus basement home with 9 steps to enter, B/B on . 06/10 bath in basement. 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 He does not use any DME but does
have 2 RW, SPC, rollator and stair glide in the home. He does drive. No services in the home. He was in the [facility], No VA benefits. He does have HC-POA. No psychiatric hospitalizations. Patient has 3 daughters as a support system. After discharge
he will be going to daughter Mary's home at [address] in [place] [address] Saxena. Pharmacy is [facility] on [address] in [place]. Discharge POC: Anticipate home with HH RN. Has had [facility] in the past. Referral placed.
--- NOTE | 2025-02-28 16:14 | W.PN.ANS.POP ---
Anesthesia Post Operative
- Anesthesia Post Op Note
Vital Signs Stable-See Nursing Note: Yes
Airway Patent: Yes
Adequate Pain Control: Yes
Change in Mental Status: No
Current Postoperative Nausea & Vomiting: No
Anesthesia Complications: No
General Anesthetic Recall: No
Unplanned Admission: No
Post Op Hydration Adequate: Yes
--- NOTE | 2025-02-28 16:15 | PTCARENOTE ---
Pt on 2L N/C...sats 95%. Lungs diminished. IS done...250-500mls. Encouraged coughing and deep breathing. Weak moist NPC. Left radial roxanne remains positional but correlates w/ manual BP when accurate waveform obtained. Levophed gtt weaned to
off...see intervention. Call velazquez within reach. Safe environment confirmed.
[2025-02-28] MEDS: LOVENOX 40 MG SC (17:50)
[2025-02-28] MEDS: NOVOLOG FLEXPEN-LOW RESISTANCE SC ×2 (17:57→23:32)
[2025-02-28 18:08] LABS: Glucose - Point of Care 142 mg/dl (70-99)
--- NOTE | 2025-02-28 18:22 | RESPNOTE ---
patient back on own cpap at this time, changed patient's own nasal mask to full face mask due to NG tube in Left nare. 2L O2 bleed with with patient's own cpap to maintain SPO2 >88%. on cpap with full face mask, SpO2 94%, RR 20, HR 140.
--- NOTE | 2025-02-28 20:00 | PTCARENOTE ---
Resumed care of pt laying in bed AAOx3. HR in the 120's-130's in Afib on the monitor. POX 94% on CPAP 05/12 with 4 LO2. Lungs dec T/o. Left nare NGT to LIS at 75cm. Hypo bowel, round abd. Left upper abd colostomy in place, no output at this time. B/L
SUSAN drains in place draining serous sangiunous drainage. Midline abd dressing intact. Hartman cath in place draining florence colored urine. Palpable peripheral pulses present. Pale cool clammy skin. +1 anasarca. Right forarm int capped. Left wrist int
infusing LR @80ml/hr. Left radial Nancy in place, extremely positional. Knee high seq in place. Pt denies any complaints at this time. Pt positioned per comfort. Will continue to monitor.
[2025-02-28 23:43] LABS: Glucose - Point of Care 137 mg/dl (70-99)
[2025-03-01] VITALS (29 sets, daily range): BP systolic 108–178; BP diastolic 50–151; PULSE 127–132; BMI 38.2
[2025-03-01] MEDS: OFIRMEV 100 IV ×3 (00:17→20:01)
--- NOTE | 2025-03-01 01:30 | PTCARENOTE ---
Pt reports discomfort with CPAP mask. Pts own machine, but our mask. RT notified. Pt placed on DH CPAP 02/10 with 4 LO2. POX 97%. Pt reports improved comfort with breathing. No other changes in assessment noted at this time. Call velazquez in reach. Will
continue to monitor.
[2025-03-01 03:32] LABS: Hematocrit 34.6 % (39.0-52.0); Hemoglobin 11.7 g/dL (13.0-18.0); Mean Corp Hgb Conc. 33.8 g/dL (33.0-37.0); Mean Corpuscular Volume 92.5 fL (80.0-94.0); Platelet Count 340 10^3/uL (130-400); Red Cell Dist. Width 14.0 % (11.5-14.5)
[2025-03-01 03:52] LABS: Blood Urea Nitrogen 30 mg/dl (9-20); Calcium 8.4 mg/dl (8.4-10.2); Carbon Dioxide 26 mmol/L (22-30); Chloride 107 mmol/L (98-107); Estimated Creatinine Clearance 72 ml/min; Glucose 130 mg/dl (70-99); Magnesium 2.2 mg/dl (1.6-2.3); Potassium 4.0 mmol/L (3.5-5.1); Sodium 136 mmol/L (135-145); eGFR > 60.00
--- NOTE | 2025-03-01 04:08 | PTCARENOTE ---
Pt awake t/o the night. Pt unable to sleep. Pt awake and watching movies. CHG bath provided. Oral care complete. AM labs obtained. Left radial Nancy discontinued. Pt repositioned per comfort. CPAP removed for about an hour, 4 LO2 NC applied, then pt
requested to go back on CPAP. POX 95%. HR remains in Afib HR ranging from 120-150's. Pt denies any complaints at this time. Will continue to monitor.
[2025-03-01] MEDS: LOPRESSOR 5 MG IV ×3 (05:12→20:48)
[2025-03-01] MEDS: ZOSYN 50 IV ×4 (05:12→21:49)
[2025-03-01] MEDS: NOVOLOG FLEXPEN-LOW RESISTANCE SC ×2 (05:50→11:54)
[2025-03-01 06:00] LABS: Glucose - Point of Care 147 mg/dl (70-99)
[2025-03-01] MEDS: PROTONIX IV 40 MG IV (08:26)
--- NOTE | 2025-03-01 08:26 | W.PN.INTV ---
Today's Communication / Plan
Recommendations
- Replete electrolytes with K>4, Mg>2 as needed
- Increase metoprolol IV to 10mg q6h for rate control (hold if systolic BP<115)
- May add amiodarone if rate not controlled EOD today
- Consider CT chest to r/o PE as etiology post-op
- Heparin drip started
- Echo tomorrow when more stable
- Had been holding home lasix (40mg po daily) - consider IV lasix 20mg today given CXR w effusion to improve resp status
- Cards consulted, appreciate recs
- Attempt to wean off CPAP as tolerated today
- Postoperative management, per general surgery
- Continue Zosyn 3.375 q6h
- Pain mgmt: dilaudid 0.25mg q4hr prn, IV tylenol
- Famotidine for GI ppx
Assessment
-
Pt is a 74-year-old male with a pmh notable for afib (on eliquis), HFpEF, HTN, and diverticulitis who p/w L-sided abdominal pain, vomiting, & chills in the s/o recent ex lap for perforated diverticulitis & formation of end colostomy, followed by
colostomy reversal on 02/21/25. Found on CT a/p to have postoperative leak at the left colonic anastomosis site with extraluminal contrast, with a large degree of pneumoperitoneum (02/27). Gen surg performed exlap w colon resection and creation of an
end colostomy (02/27). Patient remained intubated and was transferred to the ICU postoperatively. Advertising Sales Consultant services consulted for additional management/recommendations. Plan as below.
#Respiratory distress
#Afib with RVR
CPAP removed post-extubation 02/28, but pt had to be put back on after 1-2 hrs due to desat <90% & increased WOB. Pt in afib overnight, HR 140s, irregular rhythm. Pt with worsening dyspnea likely 2/2 symptomatic afib w RVR. O2sat 95% on CPAP w 4L. RR
23. On eliquis at home. CXR 03/01: 'Stable small left pleural effusion and bibasilar atelectasis and/or pneumonia.'
- Replete electrolytes with K>4, Mg>2 as needed
- Increase metoprolol IV to 10mg q6h for rate control (hold if systolic BP<115)
- May add amiodarone if rate not controlled EOD today
- Consider CT chest to r/o PE as etiology post-op
- Heparin drip started
- Echo tomorrow when more stable
- Had been holding home lasix (40mg po daily) - consider IV lasix 20mg today given CXR w effusion to improve resp status
- Cards consulted, appreciate recs
- Attempt to wean off CPAP as tolerated today
#Circulatory shock - septic vs. cardiogenic
Patient extubated on 02/28 and weaned off levophed. No pressors 03/01. MAP 65-76. BP 139/75. HR 140.
- Maintain MAP>65
#Suspected bacteremia due to anastomotic leak, improved
Pneumoperitoneum due to anastomotic leak s/p exploratory laparotomy with colon resection and end colostomy creation (02/27). Colonic contents in peritoneum - elevated infection risk intraabdominally. Pt has remained afebrile. Ostomy site not
infectious appearing on exam. With some pain to palpation around site, mild. Blood cx negative. Lactic acid downtrending, elevated 2.6 on admission.
Ostomy output 24hr: 200ml>600ml
- Postoperative management, per general surgery
- Continue Zosyn 3.375 q6h
- Pain mgmt: dilaudid 0.25mg q4hr prn, IV tylenol
#Leukocytosis
Likely due to above bacteremia with suspected transient bacteremia with sepsis. Had leak of enteric contents s/p bowel perforation on presentation. Decadron on 02/27
WBC: 15.5>24.6>29.4
- Continue to monitor on abx for risk of intraabdominal infection sx
#Lactic acidosis, resolved
Lactic acidosis in s/o bowel perf, OR, bacteremia. Lactic acid: 2.6>3.0>2.3>2.2>1.5
- Continue to monitor on abx
#Acute anemia (mild)
#Thrombocytosis
Hgb 12.8>11.7 ; likely post-op anemia
Plt 403>340 ; likely reactive, improving
- Trend H/H and transfuse if needed to keep hgb>7g/dL; keep plt>50k
#Hyperbilirubinemia
Tbili 3.5. Likely 2/2 bowel leak.
- Continue to trend
#Hypoalbuminemia
2.1. Likely in s/o poor PO intake & inflammation.
- Continue to trend as clinical status improves
#Chronic:
-History of perforated diverticulitis s/p ex lap with splenic flexure takedown, drainage of intra-abdominal abscess and end colostomy creation (11/15/2024) with colostomy reversal, hepatic flexure takedown and lysis of adhesions (02/21/2025)
-HFpEF - holding home lasix (40mg po daily)
-HTN - monitor BP
-HLD - restart home simvastatin when able to tolerate PO
-SARAH
-Hx DVT/PE
-Pre-DM - low sliding scale insulin inpt
#Global
- DVT ppx: heparin drip
- Code: full
- Diet: NPO, likely eventual TPN
- GI ppx: famotidine
- Dispo: continue to monitor in ICU today
Subjective Dataa
Subjective Data
Date of Service:
Date of Service: March 01, 2025
Chief Complaint: [employer] Consultant Follow Up
Subjective:
Interval events: Pt extubated & taken off pressors.
Today: Pt with CPAP on but conversant/alert/able to answer Qs. Endorses abd pain. Denies SOB, just feels that he is breathing fast. Denies any noticeable palpitations. Denies fever/chills but states that feels clammy.
Review of Systems
General: Other (clammy)
Cardiopulmonary: Other (feels tachypneic )
GI: Abdominal Pain
Genitourinary: Hoffman
Objective Data
Data Reviewed
Vital Signs / I&O / Oxygen:
Vital Signs
Temp Pulse Resp BP Pulse Ox
97.7 F 140 23 139/75 76
03/01/25 08:07 03/01/25 05:12 02/28/25 23:30 03/01/25 05:12 02/28/25 23:30
Intake and Output
02/28/25 03/01/25 03/02/25
06:59 06:59 06:59
Intake Total 1449.2 / 1612.9 3898.5 / 3898.5
Output Total 760 / 905 1917 / 1917
Balance 689.2 / 707.9 1980.5 / 1980.5
SaO2 [CPAP/PSV] 99
SaO2 [A/C] 100
SaO2 76
Nasal Cannula flow liters per 2
minute
Physical Exam
General: Other (on CPAP, mildly uncomfortable but conversant ; hoffman in )
HEENT: Normocephalic and Anicteric
Cardiovascular: Irregular Rhythm (irregular rhythm w tachycardia )
Respiratory: Other (on CPAP, tachypneic; no accessory muscle use, non-labored respirations )
GI: Soft, Non Distended, Tender (abdomen tender to palpation in upper R quadrant adjacent to ostomy; otherwise nontender ), Other (pt with 2 abdominal SUSAN drains with slight serosanguinous drainage (R & L of ostomy) ) and Other (colostomy with
minimal output; area surrounding ostomy without erythema, purulence, drainage; thin strip wound vac in place adjacent to ostomy)
Neurology: Awake, Alert and Oriented
Skin: Good Color and Other (fingertips & toe tips somewhat cool but without cyanosis, with cap refill )
Labs/Micro/Reports
Lab Data
03/01/25 03:18
03/01/25 03:18
Laboratory Results
02/28/25
11:21
pH 7.40
pCO2 36
pO2 111 H
HCO3 22.3
O2 Delivery Level
[2025-03-01] MEDS: NSS (PRESERVATIVE FREE) 10 ML IV (08:27)
[2025-03-01] MEDS: DILAUDID 0.25 MG IV ×3 (08:29→20:45)
--- NOTE | 2025-03-01 08:29 | W.PN.CD ---
Addendum entered and electronically signed by Noel Dietz MD 03/01/25 16:54:
I saw and examined the patient.
The resident's note was reviewed and I agree with the note.
Comment:
74-year-old man with atrial fibrillation (unknown type) on Eliquis, CHF, hypertension, PE/DVT, with recent perforated diverticulitis s/p multiple abdominal surgeries, last on 02/27/2025. Cardiology is consulted for A-fib with RVR. I saw him this
afternoon at which time heart rates are still in the 130s�140s. He says he is asymptomatic but looks like he is having some increased work of breathing.
Physical exam notable for tachycardic, irregular rhythm, no murmurs, clear lungs anteriorly, no lower extremity edema
Telemetry with A-fib with RVR. Heart rates up to 130s�140s.
It is unclear why he is so tachycardic. Hemoglobin stable. CT PE negative. WBC is rising but afebrile. Continue work-up per primary team.
Start IV amiodarone for rate control. Continue IV metoprolol 5 mg every 6 hours as needed for goal HR <120 bpm.
Continue IV heparin for anticoagulation
Echo once his rates are improved.
Original Note:
Today's Communication / Plan
-
1) Afib with RVR most likely due to post-op stress, post surgical pain. In pt with persistent vs. permanent afib, would continue with current dose BB and treat underlying exacerbating factors first. Given that home dose BB is only 75mg qd, his
elevated rate is more likely due to acute exacerbation.
2) Will request records/last Echo from [facility] Dr. Mindy Mora
Impression / Plan
-
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
[facility] ED after discharge on 02/25 following elective colostomy reversal for repeated perforated diverticulitis in 11/2024, found to have anastomotic leak CT imaging with pneumoperitoneum (02/27) requiring ex lap with bowel resection and end colostomy
creation. He remains in ICU, extubated, on pressure support and in persistent Afib with RVR into the 140s.
# Unspecified Afib with RVR (most likely persistent vs. permanent)
- Home dose Lopressor is 50mg AM and 25mg PM -- baseline rate uncertain per pt history. We have no records to confirm
- currently pt on IV Lopressor 5mg Q6 with persistent RVR >110s w/o symptoms
- off levophed
- c/w IV Lopressor 5mg Q6
- agree to restart OAC
- can transition to po BB when cleared for po
#Chronic HF, unspecified type
- last echo per patient presumably demonstrated LVEF of 45%
- will obtain records
- question of aggressive vs. nonaggressive fluid resuscitation following ex lap with colectomy and irrigation of abdomen with copious feculent drainage
- no clinical signs of volume overload or acute exacerbation of HF at this time
- will cancel Echo order, attempt when/if rates more stable
- will request records of recent Echo
Physical Exam
Vital Signs/Labs
Vital Signs
Temp Pulse Resp BP Pulse Ox
97.7 F 140 23 139/75 76
03/01/25 08:07 03/01/25 05:12 02/28/25 23:30 03/01/25 05:12 02/28/25 23:30
02/28/25 03/01/25 03/02/25
06:59 06:59 06:59
Actual Weight 106.3 kg 107.4 kg
03/01/25 03:18
03/01/25 03:18
PT 19.9 Sec (11.4-14.6) H 02/27/25 16:52
INR 1.67 02/27/25 16:52
APTT 28.0 Sec (23.4-35.0) 02/27/25 16:52
Magnesium 2.2 mg/dl (1.6-2.3) 03/01/25 03:18
Triglycerides 55 mg/dl (10-149) 02/27/25 22:49
Triglycerides Cancelled 02/27/25 22:49
Physical Exam
Constitutional: No acute distress and Comfortable
EENT: Anicteric and Moist mucous membranes
Cardiovascular: Pedal edema is absent, Rhythm/rate is irregular and Murmur/rub/gallop absent
Respiratory: Lungs clear to auscul., Wheeze Absent, Crackles Absent and Rhonchi Absent
GI: Soft and Other (abdominal drains, ostomy site clean/dry/intact)
Neuro/Psych: AO x 3
Data Reviewed
-
Date of Service: March 01, 2025
--- NOTE | 2025-03-01 09:33 | PTCARENOTE ---
Unable to verify accuracy of vital signs saved from midnight to 0645 as RN was not present.
--- NOTE | 2025-03-01 10:33 | PN.CDI ---
CDI
- -
CDI:
Physician Documentation Request
Admit Date: 02/27/25 19:14
Dear Doctor Jaime,
Please review the following and provide your response in the progress notes.
Clinical Indicators:
02/27 Surgical Immed Post Op Note
#Post-op Diagnosis: Anastomotic leak
#Procedure Performed: Exploratory laparotomy, colon resection, creation end colostomy
#Operative Findings:
#...Release of air upon entering abdomen, extensive feculent contamination,
#...disruption of anastomosis encompassing roughly 40% of common channel staple line;
#Remained intubated at case conclusion
#...6mcg levo
Based on the above and your clinical assessment, please clarify the appropriate diagnosis, if significant, that supports the above abnormalities and additional evaluation, monitoring and/or treatment rendered:
Localized peritonitis
Generalized peritonitis
Perforated peritonitis
Other(please specify)
Use of terms such as suspected, likely, concern for, or probable (associated with a specific diagnosis that is being evaluated, monitored, or treated as if it exists) are acceptable and can be coded in the inpatient setting, when documented at the
time of discharge.
Thank you,
Kelsey Mullins RN BSN CCDS
CDI Specialist
Please contact via tiger text
Please use your independent medical judgment in providing your response.
--- NOTE | 2025-03-01 11:08 | W.PN.GS2 ---
Today's Communication / Plan
-
-- CXR, TTE, consider CT chest for DVT if negative (OK to start tx anyway with Hep gtt)
-- NPO/NGT to LIWS, consider TPN
-- Abx: IV Zosyn
-- DVT: OK to start Hep gtt, current on Lovenox and SCDs
Assessment / Plan
-
Patient is a 74 yo M POD2 s/p ex lap, colon resection, end colostomy creation for anastomotic leak, POD8 s/p reversal of end colostomy
Afebrile, tachycardiac, increased SOB, pressors weaned off
UOP adequate, H/H stable, drains ss, WBC rising
Increased shortness of breath and tachycardia. Differential includes acute respiratory failure secondary to atelectasis and pulmonary edema versus cardiogenic versus DVT/PE versus ongoing intra-abdominal sepsis. Workup ongoing. Chest x-ray
pending. Will likely need a echo. Would consider DVT PE study if these are negative. Okay to start anticoagulation from a surgical standpoint, favor heparin drip over Eliquis given limited absorption/oral options. Drain output is reassuring.
High risk for ileus as well as developing an abscess in the days to come. Recommend continued NPO and NGT decompression. Case discussed with ICU.
Plan:
-- CXR, TTE, consider CT chest for DVT if negative (OK to start tx anyway with Hep gtt)
-- NPO/NGT to LIWS, consider TPN
-- Abx: IV Zosyn
-- DVT: OK to start Hep gtt, current on Lovenox and SCDs
Subjective Data
-
Date of Service: March 01, 2025
Limited encounter currently on BiPAP. Denies any worsening abdominal pain. No fevers over 24 hrs.
Objective Data
-
Intake and Output
02/28/25 03/01/25 03/02/25
06:59 06:59 06:59
Intake Total 1449.2 / 1612.9 3898.5 / 3978.5 240 / 240
Output Total 760 / 905 1918 / 1918 100 / 100
Balance 689.2 / 707.9 1980.5 / 2060.5 140 / 140
Intake:
Oral fluids 0 / 0
IV fluids (Total) 1049.2 / 1212.9 3398.5 / 3478.5 240 / 240
Fentanyl 22.5 / 25.0 5.0 / 5.0
LR BOLUS 1000 / 1000
Levophed 255.0 / 285.0 217.5 / 217.5
Lr 1,000 ml @ 80 mls/hr IV . 1520 / 1600 240 / 240
[id number] DENIS Rx#:[id number]
Normosol-R/Plasmalyte-A 1,000 750 / 875 625 / 625
ml @ 125 mls/hr IV .Q8H DENIS Rx#
:[id number]
Propofol 21.7 / 27.9 31.0 / 31.0
IV piggybacks 300 / 300 300 / 300
TPN/PPN 50 / 50
Amount instilled into GI Tube ( 150 / 150
Total)
[place] Sump 150 / 150
Blood Products 100 / 100
Albumin 25% 100 / 100
Output:
Drain Output (Total) 235 / 320 318 / 318
Left Abdomen Celso-Loyd 100 / 125 138 / 138
Right Abdomen Celso-Loyd 135 / 195 180 / 180
Gastrointestinal tube output ( 200 / 200 600 / 600
Total)
[place] Sump 200 / 200 600 / 600
Urine, Hoffman 325 / 385 1000 / 1000 100 / 100
Vital Signs
Temp Pulse Resp BP Pulse Ox
97.7 F 132 25 139/79 97
03/01/25 08:07 03/01/25 10:00 03/01/25 10:00 03/01/25 10:00 03/01/25 09:51
Lab Results
03/01/25 03:18
03/01/25 03:18
Calcium 8.4 mg/dl (8.4-10.2) 03/01/25 03:18
Phosphorus 4.0 mg/dl (2.5-4.5) 02/28/25 02:57
Magnesium 2.2 mg/dl (1.6-2.3) 03/01/25 03:18
Total Bilirubin 3.5 mg/dl (0.2-1.3) H D 02/28/25 02:57
Direct Bilirubin 2.2 mg/dl (0.0-0.4) H 02/28/25 02:57
AST 22 U/L (17-59) 02/28/25 02:57
ALT 17 U/L (0-50) 02/28/25 02:57
Alkaline Phosphatase 63 U/L (38-126) 02/28/25 02:57
Total Protein 4.4 g/dl (6.3-8.2) L D 02/28/25 02:57
Albumin 2.1 g/dl (3.5-5.0) L 02/28/25 02:57
Physical Exam
-
Gen: NAD
Abd: obese, soft, moderate tenderness, distended, non-peritoneal, midline dressing c/d/i, RLQ SUSAN serosang, LLQ SUSAN seropurulent, ostomy PPV, no flatus or stool
Patient has a hoffman catheter: Yes
Patient has a central line: Yes
[2025-03-01] MEDS: LOPRESSOR 10 MG IV (11:50)
[2025-03-01 11:52] LABS: Glucose - Point of Care 120 mg/dl (70-99)
[2025-03-01] MEDS: LASIX 20 MG IV (14:08)
--- NOTE | 2025-03-01 14:37 | PTCARENOTE ---
Addendum entered by Marj Berg RN 03/01/25 16:13:
Pt placed on 2lnc with quick improvement in sats. HR 130-150s with activity. PRN lopressor given. Pt reports breathing felt improved when up in chair. Dr Mya updated and CTA ordered to rule out PE.
Original Note:
Pt assisted oob to chair with min assist for lines. Attempted on room air after pt requested break from his bipap, sats only 90% with mild increased wob. Pt c/o 4/10 pain after activity with ofirmev infusing.
--- NOTE | 2025-03-01 16:41 | W.PN.UPDATE ---
Update Note
Progress Note Update
Pt with accessory muscle use & tachypnea after returning from imaging. CT PE negative. Satting 95% on 4L NC. HRs still in 130-140s. Discussed w cards, converted 10mg metop q6hr > 5mg metop q6h PRN & started amiodarone drip
[2025-03-01] MEDS: HEPARIN 25000 UNITS/250 ML IV (16:47)
[2025-03-01 17:00] LABS: APTT 35.3 Sec (23.4-35.0)
[2025-03-01] MEDS: CORDARONE 103 MG IV (17:03)
[2025-03-01] MEDS: CORDARONE 518 MG IV (17:03)
[2025-03-01 17:30] LABS: Glucose - Point of Care 159 mg/dl (70-99)
[2025-03-01] MEDS: NOVOLOG FLEXPEN-LOW RESISTANCE 1 UNITS SC (18:25)
[2025-03-01] MEDS: DESENEX/MITRAZOL/ZEASORB 1 APPLIC TOPICAL (19:47)
--- NOTE | 2025-03-01 20:00 | PTCARENOTE ---
Rec'd pt OOB in chair. Assist X1 back to bed. Pt comfortable, no TRAMMELL, Ofirmev given for abdominal discomfort. Afebrile. Afib on Amio/Heparin. Lopressor PRN if needed. 4L NC, CPAP at HS. NGT to LIWS, minimal output. Midline post op dressing with
small amount drainage, SUSAN X2, ostomy. Hartman to gravity.
[2025-03-02] VITALS (33 sets, daily range): BP systolic 78–181; BP diastolic 53–145; PULSE 2–145; BMI 37.9
[2025-03-02] LABS: APTT 55.9 Sec (23.4-35.0)
[2025-03-02 00:31] LABS: Glucose - Point of Care 159 mg/dl (70-99)
[2025-03-02] MEDS: NOVOLOG FLEXPEN-LOW RESISTANCE 1 UNITS SC ×2 (00:34→05:15)
[2025-03-02 03:20] LABS: B.E. -2.1 mmol/L; HCO3 28.6 mmol/L (21-28); O2 Saturation % 96.6 % (94-98); PO2 83 mmHg (83-108)
[2025-03-02 03:22] LABS: PCO2 82 mmHg (35-48)
[2025-03-02] MEDS: ZOSYN 50 IV ×4 (03:54→21:09)
[2025-03-02] MEDS: NEO-SYNEPHRINE 250 IV (03:54)
--- NOTE | 2025-03-02 04:02 | PTCARENOTE ---
Pt c/o trouble breathing and pulled NGT. With CPAP off O2 Sat 86%. RT at bedside to replace CPAP. ABG sent and resulted. Decision made to initiate BiPap and recheck ABG in 1 hour. Lasix ordered IV. Gurjit started for MAP goal 65. Pt lethargic but
updated on plan of care and shook head yes. Labs sent and pending. Will monitor closely.
[2025-03-02 04:04] LABS: Hematocrit 34.6 % (39.0-52.0); Hemoglobin 11.1 g/dL (13.0-18.0); Mean Corp Hgb Conc. 32.1 g/dL (33.0-37.0); Mean Corpuscular Volume 94.3 fL (80.0-94.0); Platelet Count 333 10^3/uL (130-400); Red Cell Dist. Width 14.4 % (11.5-14.5)
[2025-03-02] MEDS: LASIX 40 MG IV ×3 (04:10→21:09)
[2025-03-02 04:27] LABS: APTT 65.0 Sec (23.4-35.0)
[2025-03-02 04:41] LABS: B.E. -1.0 mmol/L; HCO3 26.1 mmol/L (21-28); O2 Saturation % 100.0 % (94-98); PCO2 53 mmHg (35-48); PO2 219 mmHg (83-108)
[2025-03-02 04:43] LABS: O2 Therapy BIPAP
[2025-03-02 04:58] LABS: ALT (SGPT) 19 U/L (0-50); AST (SGOT) 24 U/L (17-59); Albumin 2.4 g/dl (3.5-5.0); Alkaline Phosphatase 91 U/L (38-126); Blood Urea Nitrogen 40 mg/dl (9-20); Calcium 8.1 mg/dl (8.4-10.2); Carbon Dioxide 26 mmol/L (22-30); Chloride 108 mmol/L (98-107); Estimated Creatinine Clearance 66 ml/min; Glucose 164 mg/dl (70-99); Magnesium 2.6 mg/dl (1.6-2.3); Potassium 4.0 mmol/L (3.5-5.1); Sodium 138 mmol/L (135-145); Total Protein 4.8 g/dl (6.3-8.2); eGFR > 60.00
[2025-03-02 05:19] LABS: Glucose - Point of Care 161 mg/dl (70-99)
--- NOTE | 2025-03-02 05:38 | W.PN.UPDATE ---
Update Note
Progress Note Update
03/02/25
0300- Patient pulled out NGT. Afterwards he desaturated to 80s% sustained, tachypneic and labored breathing. Dr. Craig, general surgeon, updated that patient pulled out NGT. Recommended replacement of NGT, however stabilizing respiratory status
more important at this time.
Patient on home CPAP, concern for possible hypercapnia and hypoxic, ABG was obtained. ABG showed hypercapnic respiratory acidosis. Patient placed on BIPAP. Dr. May, user interface developer updated, recommendations received: agreed with BIPAP, recheck
ABG in 1 hr, and give 40mg of IV lasix. SBP became hypotensive, 70s, vasopressor norsynephrine ordered. ABG rechecked, showed improvement with respiratory acidosis and hypercapnia. Patient's respiratory status still tenuous will defer replacing
NGT at this time and give more time with BIPAP.
[2025-03-02 06:30] LABS: APTT 74.0 Sec (23.4-35.0)
[2025-03-02] MEDS: DESENEX/MITRAZOL/ZEASORB 1 APPLIC TOPICAL ×2 (07:19→21:08)
[2025-03-02] MEDS: DILAUDID 0.25 MG IV (07:20)
[2025-03-02] MEDS: PEPCID 20 MG IV (07:20)
[2025-03-02] MEDS: NSS (PRESERVATIVE FREE) 8 ML IV (07:20)
--- NOTE | 2025-03-02 08:10 | W.PN.INTV ---
Today's Communication / Plan
Recommendations
- bipap at night; wean O2 NC during day as tolerated
- CXR tomorrow
- increase lasix to 40mg IV bid
- continue zosyn 3.375 q6h
- continue amiodarone drip
- start TPN today
- continue heparin IV
- keep ng tube out for now
- awaiting prior echo records
Assessment
-
Pt is a 74-year-old male with a pmh notable for afib (on eliquis), HFpEF, HTN, and diverticulitis who p/w L-sided abdominal pain, vomiting, & chills in the s/o recent ex lap for perforated diverticulitis & formation of end colostomy, followed by
colostomy reversal on 02/21/25. Found on CT a/p to have postoperative leak at the left colonic anastomosis site with extraluminal contrast, with a large degree of pneumoperitoneum (02/27). Gen surg performed exlap w colon resection and creation of an
end colostomy (02/27). Patient remained intubated and was transferred to the ICU postoperatively. Authorization Rep services consulted for additional management/recommendations. Plan as below.
#Respiratory distress
#Hypercapnic respiratory acidosis
Patient placed onto bipap overnight 03/01 after pulling out NG tube & desatting to 80s with tachypnea & labored breathing. CT PE/LE US r/o PE or DVT 03/01. Likely 2/2 combination of: volume overload in s/o HFpEF, NG tube out leading to additional
intraabdominal pressure/volume/compression/pain, symptomatic afib w RVR.
Today: Satting 95% on 2L O2 NC. Breathing without accessory muscle use, RR 22.
- Wean O2 NC today as able
- Continue nightly bipap
- CXR tmrw
- Increase lasix to 40mg IV bid
- Afib mgmt as below
#Afib with RVR
Pt with HRs in the 130-140s 03/01. S/p metoprolol 10mg q6hr, no improvement. Likely contributing to his resp distress. Added amio 03/01 pm.
Today: HR 106-116. Per RN, HR spiked to 140-150s when he transferred to chair.
- Replete electrolytes with K>4, Mg>2 as needed
- Continue amiodarone IV drip
- Metoprolol 5mg IV q6h PRN
- Continue heparin drip
- Holding on echo for now
- Cards consulted, appreciate recs
#HFpEF, suspected acute on chronic exacerbation
With hx of HFpEF. Cards requesting prior echo. Last echo (unclear date) w LVEF 40-45% and only mild valve disease. BNP this admission elevated, 3370.
- Lasix plan as above
#Suspected bacteremia due to anastomotic leak, improved
Pneumoperitoneum due to anastomotic leak s/p exploratory laparotomy with colon resection and end colostomy creation (02/27). Colonic contents in peritoneum - elevated infection risk intraabdominally. Pt has remained afebrile. Ostomy site not
infectious appearing on exam. With some pain to palpation around site, mild. Blood cx negative. Lactic acid downtrending, elevated 2.6 on admission. NG tube pulled out by patient 03/01pm (had been putting out 200>600ml). Ostomy output not documented.
Todya: WBC trending down. Afebrile.
- Continue Zosyn 3.375 q6h
- Replace NG tube when pt hemodynamically stable, hold for now per gen surg
- Gen surg following, appreciate recs
- Pain mgmt: dilaudid 0.25mg q4hr prn, IV tylenol
#Circulatory shock - cardiogenic vs. septic; resolved
Patient extubated on 02/28 and weaned off levophed. No pressors 03/01 until pm. S/p levophed & phenylephrine 03/01pm.
Today, PB 128/73, MAP 88.
Pressors today: none
- Maintain MAP>65
#Leukocytosis
Likely due to above bacteremia with suspected transient bacteremia with sepsis. Had leak of enteric contents s/p bowel perforation on presentation. Also received Decadron on 02/27.
WBC: 15.5>24.6>29.4>21.3
- Continue to monitor on abx for risk of intraabdominal infection sx
#Lactic acidosis, resolved
Lactic acidosis in s/o bowel perf, OR, bacteremia. Lactic acid: 2.6>3.0>>>2.2>1.5
- Continue to monitor on abx
#Acute anemia (mild)
#Thrombocytosis
Hgb 12.8>11.7>11.1 ; likely post-op anemia
Plt 403>340>333 ; likely reactive, improving
- Trend H/H and transfuse if needed to keep hgb>7g/dL; keep plt>50k
#Chronic:
-History of perforated diverticulitis s/p ex lap with splenic flexure takedown, drainage of intra-abdominal abscess and end colostomy creation (11/15/2024) with colostomy reversal, hepatic flexure takedown and lysis of adhesions (02/21/2025)
-HTN - monitor BP
-HLD - restart home simvastatin when able to tolerate PO
-SARAH
-Hx DVT/PE
-Pre-DM - low sliding scale insulin inpt
#Global
- DVT ppx: heparin drip
- Code: full
- Diet: start TPN today; PICC line placed 03/01
- GI ppx: famotidine
- Dispo: continue to monitor in ICU today
Subjective Dataa
Subjective Data
Date of Service:
Date of Service: March 02, 2025
Chief Complaint: Authorization Rep Follow Up
Subjective:
Overnight:
0300- Patient pulled out NGT. Afterwards he desaturated to 80s% sustained, tachypneic and labored breathing. Dr. Craig, general surgeon, updated that patient pulled out NGT. Recommended replacement of NGT, however stabilizing respiratory status
more important at this time.
Patient on home CPAP, concern for possible hypercapnia and hypoxic, ABG was obtained. ABG showed hypercapnic respiratory acidosis. Patient placed on BIPAP. Dr. May, senior it assistant updated, recommendations received: agreed with BIPAP, recheck
ABG in 1 hr, and give 40mg of IV lasix. SBP became hypotensive, 70s, norepi ordered. ABG rechecked, showed improvement with respiratory acidosis and hypercapnia. Patient's respiratory status still tenuous will defer replacing NGT at this time and
give more time with BIPAP.
This am:
Pt breathing comfortably on BIPAP w 4L on exam. Able to communicate although difficult to understand. Non-labored respirations. Thirsty. Denies pain. Per RN, pt was able to be weaned to 2L O2 NC later in am.
Review of Systems
Genitourinary: Hoffman
Objective Data
Data Reviewed
Vital Signs / I&O / Oxygen:
Vital Signs
Temp Pulse Resp BP Pulse Ox
97.9 F 96 26 122/76 100
03/02/25 07:28 03/02/25 06:00 03/02/25 06:00 03/02/25 06:00 03/02/25 08:02
Intake and Output
03/01/25 03/02/25 03/03/25
06:59 06:59 06:59
Intake Total 3898.5 / 3978.5 1436.1 / 1464.8 28.7 / 28.7
Output Total 1917 1315 / 1490 175 / 175
Balance 121.1 / -25.2 -146.3 / -146.3
SaO2 [CPAP/PSV] 99
SaO2 [A/C] 100
SaO2 100
Nasal Cannula flow liters per 4
minute
Physical Exam
General: Other (on CPAP, mildly uncomfortable but conversant ; hoffman in )
HEENT: Normocephalic and Anicteric
Cardiovascular: Irregular Rhythm (irregular rhythm w tachycardia )
Respiratory: Other (on CPAP, tachypneic; no accessory muscle use, non-labored respirations )
GI: Soft, Non Distended, Tender (abdomen tender to palpation in upper R quadrant adjacent to ostomy; otherwise nontender ), Other (pt with 2 abdominal SUSAN drains with slight serosanguinous drainage (R & L of ostomy) ) and Other (colostomy with
minimal output; area surrounding ostomy without erythema, purulence, drainage; thin strip wound vac in place adjacent to ostomy)
Neurology: Awake, Alert and Oriented
Skin: Good Color and Other (fingertips & toe tips somewhat cool but without cyanosis, with cap refill )
Labs/Micro/Reports
Lab Data
03/02/25 03:45
03/02/25 03:45
Laboratory Results
03/01/25 03/01/25 03/02/25
16:39 23:39 03:01
APTT 35.3 H 55.9 H
pH 7.15 L*
pCO2 82 H*
pO2 83
HCO3 28.6 H
O2 Delivery Level
03/02/25 03/02/25 03/02/25
03:45 04:29 05:49
APTT 65.0 H Cancelled
pH 7.30 L
pCO2 53 H
pO2 219 H
HCO3 26.1
O2 Delivery Level Bipap
03/02/25
06:11
APTT 74.0 H
pH
pCO2
pO2
HCO3
O2 Delivery Level
[2025-03-02 08:55] LABS: B.E. 2.0 mmol/L; HCO3 27.8 mmol/L (21-28); O2 Saturation % 99.2 % (94-98); PCO2 47 mmHg (35-48); PO2 123 mmHg (83-108)
[2025-03-02] MEDS: OFIRMEV 100 IV ×2 (10:06→21:27)
[2025-03-02] MEDS: LASIX IV (10:08)
--- NOTE | 2025-03-02 10:09 | W.PN.CD ---
Today's Communication / Plan
-
I renewed IV Amiodarone
Impression / Plan
-
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
[facility] ED after discharge on 02/25 following elective colostomy reversal for repeated perforated diverticulitis in 11/2024, found to have anastomotic leak CT imaging with pneumoperitoneum (02/27) requiring ex lap with bowel resection and end colostomy
creation. He remains in ICU, extubated, on pressure support and in persistent Afib with RVR into the 140s.
Suspected permanent Afib with RVR
- Home dose Lopressor is 50mg AM and 25mg PM -- baseline rate uncertain per pt history. We have no records to confirm
-Elevated rates from acute medical illness
- Improved on IV AMIO
- Will stop AMIO when able to control rate with just IV or enteral BB
Chronic HF, unspecified type
- Recent echo requested: Preop eval: Echo LVEF 40-45% and only mild valve disease but date of echo unclear, perhaps 07/2023. Cath: No obstructive CAD but date of cath uncertain, perhaps 08/2023
- seems stable
Postoperative anastomotic leak status post exploratory laparotomy, colon resection and creation of end colostomy
Physical Exam
Vital Signs/Labs
Vital Signs
Temp Pulse Resp BP Pulse Ox
97.9 F 96 26 122/76 100
03/02/25 07:28 03/02/25 06:00 03/02/25 06:00 03/02/25 06:00 03/02/25 08:02
03/01/25 03/02/25 03/03/25
06:59 06:59 06:59
Actual Weight 107.4 kg 106.5 kg
03/02/25 03:45
03/02/25 03:45
PT 19.9 Sec (11.4-14.6) H 02/27/25 16:52
INR 1.67 02/27/25 16:52
APTT 74.0 Sec (23.4-35.0) H 03/02/25 06:11
Magnesium 2.6 mg/dl (1.6-2.3) H 03/02/25 03:45
Triglycerides 55 mg/dl (10-149) 02/27/25 22:49
Triglycerides Cancelled 02/27/25 22:49
03/02/25
03:45
Kji-V-Vjzmbydkrsb Pept 3370
Physical Exam
Constitutional: No acute distress
Cardiovascular: Rhythm/rate is irregular
Respiratory: Respiratory effort normal and Lungs clear to auscul.
GI: Soft
Neuro/Psych: AO x 3
Data Reviewed
-
Date of Service: March 02, 2025
[2025-03-02] MEDS: HEPARIN 25000 UNITS/250 ML IV (10:12)
--- NOTE | 2025-03-02 10:36 | W.PN.GS2 ---
Addendum entered and electronically signed by Sahil Sandoval MD 03/02/25 11:32:
CDI query: generalized peritonitis at time of surgery
Original Note:
Today's Communication / Plan
-
TPN
Abx
Diuresis
Hep gtt
Assessment / Plan
-
Patient is a 74 yo M POD3 s/p ex lap, colon resection, end colostomy creation for anastomotic leak, POD9 s/p reversal of end colostomy
Afebrile, tachycardiac, issues with pulmonary edema requiring BiPAP support, now weaned to NC
UOP excellent, H/H stable, drains ss, WBC improving
Stoma PPV with gas
Cont lasix to help diuresis
Cards following, appreciate recs
Anticipate ileus
Plan:
-- Cont hep gtt
-- Defer NGT replacement
-- Initiate TPN
-- Abx: IV Zosyn
-- Diuresis and pulm toileting
Subjective Data
-
Date of Service: March 02, 2025
AF, issues with pulmonary edema now improved, pain controlled, inadvertently pulled NGT, denies n/v without NGT in place
Objective Data
-
Intake and Output
03/01/25 03/02/25 03/03/25
06:59 06:59 06:59
Intake Total 3898.5 / 3978.5 1436.1 / 1464.8 57.4 / 57.4
Output Total 1917 1315 / 1490 175 / 175
Balance 2059. 121.1 / -25.2 -117.6 / -117.6
Intake:
Oral fluids 0 / 0 0 / 0
IV fluids (Total) 3398.5 / 3478.5 976.1 / 1004.8 57.4 / 57.4
Fentanyl 5.0 / 5.0
LR BOLUS 1000 / 1000
Levophed 217.5 / 217.5
Lr 1,000 ml @ 80 mls/hr IV . 1520 / 1600 520 / 520
[id number] DENIS Rx#:[id number]
KAROLINA /
Normosol-R/Plasmalyte-A 1,000 625 / 625
ml @ 125 mls/hr IV .Q8H DENIS Rx#
:[id number]
Propofol 31.0 / 31.0
amio 300.1 / 316.8 33.4 / 33.4
heparin 144 / 156
IV piggybacks 300 / 300 400 / 400
TPN/PPN 50 / 50
Amount instilled into GI Tube ( 150 / 150 60 / 60
Total)
[place] Sump 150 / 150 60 / 60
Output:
Drain Output (Total) 318 / 318 100 / 100
Left Abdomen Celso-Loyd 138 / 138 35 / 35
Right Abdomen Celso-Loyd 180 / 180 65 / 65
Gastrointestinal tube output ( 600 / 600
Total)
[place] Sump 600 / 600
Urine, Hoffman 1000 / 1000 1215 / 1390 175 / 175
Vital Signs
Temp Pulse Resp BP Pulse Ox
97.9 F 96 26 122/76 100
03/02/25 07:28 03/02/25 06:00 03/02/25 06:00 03/02/25 06:00 03/02/25 08:02
Lab Results
03/02/25 03:45
03/02/25 03:45
Calcium 8.1 mg/dl (8.4-10.2) L 03/02/25 03:45
Phosphorus 4.5 mg/dl (2.5-4.5) 03/02/25 03:45
Magnesium 2.6 mg/dl (1.6-2.3) H 03/02/25 03:45
Total Bilirubin 2.2 mg/dl (0.2-1.3) H 03/02/25 03:45
Direct Bilirubin 1.9 mg/dl (0.0-0.4) H 03/02/25 03:45
AST 24 U/L (17-59) 03/02/25 03:45
ALT 19 U/L (0-50) 03/02/25 03:45
Alkaline Phosphatase 91 U/L (38-126) 03/02/25 03:45
Total Protein 4.8 g/dl (6.3-8.2) L 03/02/25 03:45
Albumin 2.4 g/dl (3.5-5.0) L 03/02/25 03:45
Physical Exam
-
Gen: NAD
Abd: soft, approp ttp, incision cdi with sarah, stoma PPV with mild edema, appliance with sweat, small gas, left drain sero-purulent, left drain serous
Patient has a hoffman catheter: Yes
Patient has a central line: Yes (PICC)
--- NOTE | 2025-03-02 10:46 | PTCARENOTE ---
Dr. Sandoval rounded at bedside. removed original post op abd dressing. Sutures/sarah intact. Re-dressed with gauze and ABD. SUSAN drains dressings changed. CHG done. Pt assisted up into chair. HR 150s briefly while standing. HR 110-120s while
sitting in chair. Pt reports breathing feels 'shallow and unable to take deep breath'. Sp02 mid 90s on 2L NC. Daughter (Tammy) at bedside. Dr. Sandoval updated daughter. Per , ok to keep NGT out as long as pt not nauseous. Ok for sips and chips. Oral
care done. Heparin gtt and Amiodarone gtt continue per protocol. PRN IV Ofirmev provided per AUG. Call velazquez and tray table within reach. Pt listening to music on cell phone.
[2025-03-02 11:57] LABS: Glucose - Point of Care 134 mg/dl (70-99)
[2025-03-02] MEDS: NOVOLOG FLEXPEN-LOW RESISTANCE SC ×3 (12:07→23:48)
[2025-03-02 12:43] LABS: APTT 63.4 Sec (23.4-35.0)
[2025-03-02 13:42] LABS: Triglycerides 122 mg/dl (10-149)
--- NOTE | 2025-03-02 16:44 | CM ---
POD3 s/p ex lap, colon resection, end colostomy creation for anastomotic leak. TPN, IV/Lasix, IV/AB. Discharge POC: Plan to go to daughters home with Rocky BUSTAMANTE RN, PT/OT.
[2025-03-02 17:32] LABS: Glucose - Point of Care 147 mg/dl (70-99)
[2025-03-02] MEDS: CORDARONE 518 MG IV (17:59)
[2025-03-02 20:15] LABS: APTT 84.7 Sec (23.4-35.0)
[2025-03-02] MEDS: VENTOLIN NEBULES 1.25 MG INH (20:36)
[2025-03-02] MEDS: SODIUM CHLORIDE 3% FOR INHALATION 1 VIAL INH (20:36)
[2025-03-02] MEDS: ATROVENT NEBULES 0.5 MG INH (20:36)
[2025-03-02] MEDS: Parenteral Nutrition, Central 1200 IV (21:10)
[2025-03-02] MEDS: LOPRESSOR 5 MG IV (21:16)
--- NOTE | 2025-03-02 22:44 | PTCARENOTE ---
Received patient at start of shift. Patient aao x3, forgetfulness noted at times. Affect pleasant, flat. Patient in uncontrolled afib at start of shift with HR 140's. PRN metoprolol administered per orders with positive results. Lungs cta
throughout, diminished at b/l bases. Patient continues to be sob and dyspnea noted with conversation. BiPap in place at 16/8 with 2L. TPN started on 2100, related education provided to patient who verbalizes understanding. Midline abd dressing
remains c/d/i, b/l SUSAN dressings also c/d/i. Hartman patent and putting out clear, yellow urine. BS hypoactive x4. Colostomy stoma pink, budded. Skin overall cool/clammy to touch, this is wnl per patient. Patient continues on amio gtt and heparin gtt.
Call velazquez within reach, will continue to monitor patient closely.
[2025-03-02 23:19] LABS: Glucose - Point of Care 149 mg/dl (70-99)
[2025-03-03] VITALS (31 sets, daily range): BP systolic 124–186; BP diastolic 62–152; PULSE 2–112; BMI 37.6
[2025-03-03 02:06] LABS: Venous Blood Gas B.E. 3.7 mmol/L (-4 to +4); Venous Blood Gas O2 Sat % 99.4 %
[2025-03-03 02:09] LABS: Hematocrit 32.4 % (39.0-52.0); Hemoglobin 10.7 g/dL (13.0-18.0); Mean Corp Hgb Conc. 33.0 g/dL (33.0-37.0); Mean Corpuscular Volume 92.6 fL (80.0-94.0); Platelet Count 318 10^3/uL (130-400); Red Cell Dist. Width 14.7 % (11.5-14.5); Venous Blood Gas O2 Therapy BIPAP
[2025-03-03 02:21] LABS: APTT 82.8 Sec (23.4-35.0)
[2025-03-03 02:30] LABS: Blood Urea Nitrogen 48 mg/dl (9-20); Calcium 8.5 mg/dl (8.4-10.2); Carbon Dioxide 30 mmol/L (22-30); Chloride 105 mmol/L (98-107); Estimated Creatinine Clearance 55 ml/min; Glucose 209 mg/dl (70-99); Magnesium 2.5 mg/dl (1.6-2.3); Potassium 3.2 mmol/L (3.5-5.1); Sodium 141 mmol/L (135-145); eGFR 56.93
--- NOTE | 2025-03-03 02:36 | PTCARENOTE ---
Addendum entered by Marilou Newby RN 03/03/25 02:39:
0200 bp and HR elevated due to activity at that time, hygiene provided. Will monitor.
Original Note:
Patient remains in afib, HR 110's-120's. Patient confirms pain/discomfort with movement, returns to 0 when at rest. Assessment otherwise unchanged. Will continue to monitor patient closely.
[2025-03-03] MEDS: DILAUDID 0.25 MG IV (02:50)
[2025-03-03] MEDS: HEPARIN 25000 UNITS/250 ML IV ×2 (03:37→20:03)
[2025-03-03] MEDS: ZOSYN 50 IV ×4 (03:40→21:37)
--- NOTE | 2025-03-03 04:18 | PTCARENOTE ---
Patient c/o pain earlier this am. PRN Dilaudid administered per order with positive results noted. Patient verbalizes increased comfort. Assessment overall unchanged. Will monitor.
[2025-03-03 05:21] LABS: Glucose - Point of Care 217 mg/dl (70-99)
[2025-03-03] MEDS: NOVOLOG FLEXPEN-LOW RESISTANCE 2 UNITS SC (05:24)
[2025-03-03] MEDS: LOPRESSOR 5 MG IV ×3 (06:15→19:21)
[2025-03-03] MEDS: KCL 270 MEQ IV (06:17)
[2025-03-03] MEDS: SODIUM CHLORIDE 3% FOR INHALATION 1 VIAL INH ×2 (08:03→20:22)
[2025-03-03] MEDS: ATROVENT NEBULES 0.5 MG INH ×2 (08:03→20:22)
[2025-03-03] MEDS: VENTOLIN NEBULES 1.25 MG INH ×2 (08:03→20:22)
--- NOTE | 2025-03-03 08:08 | W.PN.INTV ---
Today's Communication / Plan
Recommendations
- BiPAP today
- Repeat VBG at noon
- Continue 40 mg IV Lasix BID; potential downgrade to daily tomorrow
- Lateral rotating mattress with percussion
- Continue amiodarone IV
- Metoprolol 5 mg IV q.6 hours PRN
- Echo today
- Continue heparin drip
- Continue Zosyn 3.375 q.6 hours
- Trend blood culture for speciation/susceptibilities
- Trend creatinine
- Continue TPN with moderate insulin sliding scale
- Check reticulocyte count
- Holding on replacing NG tube for now
Assessment
-
Pt is a 74-year-old male with a pmh notable for afib (on eliquis), HFpEF, HTN, and diverticulitis who p/w L-sided abdominal pain, vomiting, & chills in the s/o recent ex lap for perforated diverticulitis & formation of end colostomy, followed by
colostomy reversal on 02/21/25. Found on CT a/p to have postoperative leak at the left colonic anastomosis site with extraluminal contrast, with a large degree of pneumoperitoneum (02/27). Gen surg performed exlap w colon resection and creation of an
end colostomy (02/27). Patient remained intubated and was transferred to the ICU postoperatively. Soap Maker services consulted for additional management/recommendations. Plan as below.
#Respiratory distress
#Hypercapnic respiratory acidosis
Patient placed onto bipap overnight 03/01 after pulling out NG tube & desatting to 80s with tachypnea & labored breathing. CT PE/LE US r/o PE or DVT 03/01. Likely 2/2 combination of: volume overload in s/o HFpEF, NG tube out leading to additional
intraabdominal pressure/volume/compression/pain, symptomatic afib w RVR. CXR (03/03): 'Hazy opacities in both lung bases, most compatible small bilateral pleural effusions and atelectasis. No focal consolidation or pneumothorax. Stable
cardiomediastinal silhouette.' ABG (03/03): pH 7.24, pCO2 73mmhg, bicarb 31.3.
Today: Satting 95% on 2L O2 NC. But unable to speak, sweaty, red faced - hypercapnic exacerbation 03/03 am. BP 186/72. Fluid balance -304ml.
- Resume daytime bipap
- Repeat VBG 12pm today
- Continue lasix to 40mg IV bid; potential convert to daily tmrw
- Start lateral rotating mattress w percussion for resp clearance
- Afib mgmt as below
- Continue nightly bipap
#Afib with RVR
Pt with HRs in the 130-140s 03/01. S/p metoprolol 10mg q6hr, no improvement. Likely contributing to his resp distress. Added amio 03/01 pm.
Today: HR 218 (yesterday, 106-116 with 150 spike when transfer to chair. K 3.2, Mg 2.5.
- Replete electrolytes with K>4, Mg>2 as needed
- Replete 60meq IV K today
- Continue amiodarone IV drip
- Per cards, will stop amio when able to control rate with just IV or PO BB
- Metoprolol 5mg IV q6h PRN
- Continue heparin drip
- Echo ordered today
- Cards consulted, appreciate recs
#JOHN
#HFpEF, suspected acute on chronic exacerbation
With hx of HFpEF. Cards requesting prior echo. Last echo (unclear date) w LVEF 40-45% and only mild valve disease. BNP this admission elevated, 3370. Cr: 0.7 (02/27) >> 1.3 (03/03). JOHN likely 2/2 combination of cardiorenal & IV diuresis since 03/01.
- Monitor Cr
- Diuresis plan as above
- Echo today, as above
#Suspected bacteremia due to anastomotic leak, improved
#Leukocytosis
Pneumoperitoneum due to anastomotic leak s/p exploratory laparotomy with colon resection and end colostomy creation (02/27). Colonic contents in peritoneum - elevated infection risk intraabdominally. Pt has remained afebrile. Ostomy site not
infectious appearing on exam. With some pain to palpation around site, mild. Blood cx positive for gram positive bacilli. Lactic acid downtrending, elevated 2.6 on admission. NG tube pulled out by patient 03/01pm (had been putting out 200>600ml).
Ostomy output not documented. Assume current abx regimen is covering bacteremia given temps & WBC.
Today: WBC: 15.5>>>29.4>21.3>18.9. Temps low (96.8).
- Continue Zosyn 3.375 q6h
- Trend blood cx for speciation, susceptibilities
- Replace NG tube when pt hemodynamically stable, hold for now per gen surg
- Gen surg following, appreciate recs
- Pain mgmt: dilaudid 0.25mg q4hr prn, IV tylenol
#Anemia
Hgb downtrending, initially thought to be post-op anemia. Has continued to downtrend. MCV 92.6 (not low). RDW only mildly elevated (14.7%). Not likely microcytic iron-def. More likely anemia of dz state in s/o infection/inflammation.
Hgb 12.8>11.7>11.1>10.7
- Continue to monitor
- Check reticulocyte count
- Trend H/H and transfuse if needed to keep hgb>7g/dL; keep plt>50k
#Circulatory shock - cardiogenic vs. septic; resolved
Patient extubated on 02/28 and weaned off levophed. No pressors 03/01 until pm. S/p levophed & phenylephrine 03/01pm.
Today, BP 156/98, MAP 92.
Pressors today: none
- Maintain MAP>65
#Lactic acidosis, resolved
Lactic acidosis in s/o bowel perf, OR, bacteremia. Lactic acid: 2.6>3.0>>>2.2>1.5
- Continue to monitor on abx
#Chronic:
-History of perforated diverticulitis s/p ex lap with splenic flexure takedown, drainage of intra-abdominal abscess and end colostomy creation (11/15/2024) with colostomy reversal, hepatic flexure takedown and lysis of adhesions (02/21/2025)
-HTN - monitor BP
-HLD - restart home simvastatin when able to tolerate PO
-SARAH
-Hx DVT/PE
-Pre-DM - glucose 209 on 03/03; convert low to moderate sliding scale insulin
#Global
- DVT ppx: heparin drip
- Code: full
- Diet: started TPN 03/02; PICC line placed 03/01; okay for sips/chips
- GI ppx: famotidine
- Dispo: ICU today
Subjective Dataa
Subjective Data
Date of Service:
Date of Service: March 03, 2025
Chief Complaint: Soap Maker Follow Up
Objective Data
Data Reviewed
Vital Signs / I&O / Oxygen:
Vital Signs
Temp Pulse Resp BP Pulse Ox
96.8 F L 128 34 156/98 98
03/03/25 03:32 03/03/25 06:15 03/03/25 05:03 03/03/25 06:15 03/03/25 05:03
Intake and Output
03/02/25 03/03/25 03/04/25
06:59 06:59 06:59
Intake Total 1436.1 / 1464.8 1609.1 / 1609.1
Output Total 1315 / 1490 2050
Balance 121.1 / -25.2 -441.9 / -441.9
SaO2 [CPAP/PSV] 99
SaO2 [A/C] 100
SaO2 98
Nasal Cannula flow liters per 2
minute
Physical Exam
General: Other (on CPAP, mildly uncomfortable but conversant ; hoffman in )
HEENT: Normocephalic and Anicteric
Cardiovascular: Irregular Rhythm (irregular rhythm w tachycardia )
Respiratory: Other (on CPAP, tachypneic; no accessory muscle use, non-labored respirations )
GI: Soft, Non Distended, Tender (abdomen tender to palpation in upper R quadrant adjacent to ostomy; otherwise nontender ), Other (pt with 2 abdominal SUSAN drains with slight serosanguinous drainage (R & L of ostomy) ) and Other (colostomy with
minimal output; area surrounding ostomy without erythema, purulence, drainage; thin strip wound vac in place adjacent to ostomy)
Neurology: Awake, Alert and Oriented
Skin: Good Color and Other (fingertips & toe tips somewhat cool but without cyanosis, with cap refill )
Labs/Micro/Reports
Lab Data
03/03/25 01:59
03/03/25 01:59
Laboratory Results
03/02/25 03/02/25 03/02/25
08:41 12:21 19:56
APTT 63.4 H 84.7 H
pH 7.38
pCO2 47
pO2 123 H
HCO3 27.8
O2 Delivery Level
03/03/25
01:59
APTT 82.8 H
pH
pCO2
pO2
HCO3
O2 Delivery Level
Microbiology
03/01/25 20:44 Blood/Venous Blood Culture - Preliminary
No Growth in 24 hours- Final report to follow
03/01/25 19:46 Blood/Venous Blood Culture - Preliminary
No Growth in 24 hours- Final report to follow
--- NOTE | 2025-03-03 08:16 | W.PN.CD ---
Today's Communication / Plan
-
- Continue IV amiodarone.
- Continue Lasix 40 mg IV BID.
Impression / Plan
-
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
discharge on 02/25 following elective colostomy reversal for repeated perforated diverticulitis in 11/2024, found to have anastomotic leak CT imaging with pneumoperitoneum (02/27) requiring ex lap with bowel resection and end colostomy creation. He
remains in ICU, extubated, on pressure support and in persistent Afib with RVR into the 140s.
Suspected permanent Afib with RVR
- Home dose Lopressor is 50mg AM and 25mg PM -- baseline rate uncertain per pt history. We have no records to confirm
-Elevated rates from acute medical illness
- Improved on IV AMIO
- Continue IV amiodarone.
- Plan is to try to stop AMIO when able to control rate with enteral BB.
Chronic HmrEF:
- Recent echo requested: Preop eval: Echo LVEF 40-45% and only mild valve disease but date of echo unclear, perhaps 07/2023. Cath: No obstructive CAD but date of cath uncertain, perhaps 08/2023
- Relatively stable/compensated.
- Continue Lasix 40 mg IV BID.
- Will try to optimize with GDMT as hospitalization progresses (critically ill at this time).
- Should obtain an echocardiogram prior to discharge.
Postoperative anastomotic leak status post exploratory laparotomy, colon resection and creation of end colostomy:
- Management as per Surgical team; on antibiotics.
Physical Exam
Vital Signs/Labs
Vital Signs
Temp Pulse Resp BP Pulse Ox
97.6 F 106 32 156/98 100
03/03/25 08:13 03/03/25 08:12 03/03/25 08:12 03/03/25 06:15 03/03/25 08:12
03/02/25 03/03/25 03/04/25
06:59 06:59 06:59
Actual Weight 106.5 kg 105.6 kg
03/03/25 01:59
03/03/25 01:59
PT 19.9 Sec (11.4-14.6) H 02/27/25 16:52
INR 1.67 02/27/25 16:52
APTT 82.8 Sec (23.4-35.0) H 03/03/25 01:59
Magnesium 2.5 mg/dl (1.6-2.3) H 03/03/25 01:59
Triglycerides Cancelled 03/02/25 12:15
03/02/25
03:45
Hqe-R-Avfigaqxujs Pept 3370
Physical Exam
Constitutional: No acute distress and Comfortable
EENT: Anicteric
Cardiovascular: Pedal edema is absent, Rhythm/rate is irregular, Systolic murmur present (2/6) and S1S2 is normal
Respiratory: Respiratory effort normal and Other (Decreased bibasilar breath sounds)
GI: Soft
Neuro/Psych: AO x 3
Other: Skin (Warm)
Data Reviewed
-
Date of Service: March 03, 2025
EKG: Tracing Personally Visualized and interpreted (Telemetry: A-fib, PVCs)
Labs: Labs Reviewed by me
[2025-03-03 09:17] LABS: B.E. 2.1 mmol/L; HCO3 31.3 mmol/L (21-28); O2 Saturation % 95.1 % (94-98); PO2 72 mmHg (83-108)
[2025-03-03] MEDS: DESENEX/MITRAZOL/ZEASORB 1 APPLIC TOPICAL ×2 (09:20→20:09)
[2025-03-03 09:21] LABS: PCO2 73 mmHg (35-48)
[2025-03-03] MEDS: LASIX 40 MG IV ×2 (09:21→20:09)
[2025-03-03] MEDS: PEPCID 20 MG IV (09:22)
[2025-03-03] MEDS: NSS (PRESERVATIVE FREE) 8 ML IV (09:22)
--- NOTE | 2025-03-03 09:30 | PTCARENOTE ---
pt awake and alert at shift shift change , afib on monitor, he was taken off bipap at 0800 and placed on 2L NC , at 0900 his resp rate shallow with low 02 sat of 78% , he was using accessory muscles to breath , Dr Kaur aware and ABG obtained
along with restarting Bipap with previous setting of , he improved with intervention in 20 minutes , his family at bedside and updated on plan of care and condition , plan to continue with Bipap today with intermittent breaks if tolerable as
per inspector precision
--- NOTE | 2025-03-03 10:13 | W.PN.GS2 ---
Today's Communication / Plan
-
See plan
Assessment / Plan
-
Patient is a 74 yo M POD4 s/p ex lap, colon resection, end colostomy creation for anastomotic leak, POD10 s/p reversal of end colostomy
Hypothermia, tachycardia, issues with pulmonary edema requiring intermittent BiPAP support
UOP excellent, H/H stable, drains ss, WBC improving
Stoma PPV with gas
Cards following, appreciate recs
Anticipate ileus
Plan:
-- Cont hep gtt
-- Cont TPN
-- Abx: IV Zosyn
-- Diuresis and pulm toileting
Subjective Data
-
Date of Service: March 03, 2025
Hypothermia and persistent tachycardia, normotensive, requiring intermittent biPAP, pain controlled, denies n/v
Objective Data
-
Intake and Output
03/02/25 03/03/25 03/04/25
06:59 06:59 06:59
Intake Total 1436.1 / 1464.8 1609.1 / 1609.1
Output Total 1315 / 1490 2050
Balance 121.1 / -25.2 -441.9 / -441.9
Intake:
Oral fluids 0 / 0 75 / 75
IV fluids (Total) 976.1 / 1004.8 694.1 / 694.1
Lr 1,000 ml @ 80 mls/hr IV . 520 / 520
[id number] DENIS Rx#:[id number]
KAROLINA 12 / 12
amio 300.1 / 316.8 384.1 / 384.1
heparin 144 / 156 310 / 310
IV piggybacks 400 / 400 390 / 390
TPN/PPN 450 / 450
Amount instilled into GI Tube ( 60 / 60
Total)
[place] Sump 60 / 60
Output:
Drain Output (Total) 100 / 100 101 / 101
Left Abdomen Celso-Loyd 35 / 35 33 / 33
Right Abdomen Celso-Loyd 65 / 65 68 / 68
Urine, Hoffman 1215 / 1390 1950 / 1950
Vital Signs
Temp Pulse Resp BP Pulse Ox
97.6 F 138 32 156/91 100
03/03/25 08:13 03/03/25 09:21 03/03/25 08:12 03/03/25 09:21 03/03/25 08:12
Lab Results
03/03/25 01:59
03/03/25 01:59
Calcium 8.5 mg/dl (8.4-10.2) 03/03/25 01:59
Phosphorus 4.5 mg/dl (2.5-4.5) 03/02/25 03:45
Magnesium 2.5 mg/dl (1.6-2.3) H 03/03/25 01:59
Total Bilirubin 2.2 mg/dl (0.2-1.3) H 03/02/25 03:45
Direct Bilirubin 1.9 mg/dl (0.0-0.4) H 03/02/25 03:45
AST 24 U/L (17-59) 03/02/25 03:45
ALT 19 U/L (0-50) 03/02/25 03:45
Alkaline Phosphatase 91 U/L (38-126) 03/02/25 03:45
Total Protein 4.8 g/dl (6.3-8.2) L 03/02/25 03:45
Albumin 2.4 g/dl (3.5-5.0) L 03/02/25 03:45
Physical Exam
-
Gen: NAD
Abd: soft, approp ttp, incision cdi with sarah, stoma with some edema, more flatus in appliance today
Patient has a hoffman catheter: Yes
Patient has a central line: Yes (PICC)
[2025-03-03] MEDS: NOVOLOG FLEXPEN-MODERATE RESISTANCE 5 UNITS SC ×2 (11:44→23:16)
[2025-03-03] MEDS: KCL 160 MEQ IV (11:44)
[2025-03-03 11:52] LABS: Glucose - Point of Care 254 mg/dl (70-99)
[2025-03-03 12:46] LABS: Venous Blood Gas B.E. 5.2 mmol/L (-4 to +4); Venous Blood Gas O2 Sat % 96.4 %
--- NOTE | 2025-03-03 13:48 | PTCARENOTE ---
repeat blood gas at 12:00 VBG 7.37/55/72/31.8
--- NOTE | 2025-03-03 15:41 | CM ---
POD#4: S/p expl lap, colon resection, end colostomy creation for anastomotic leak. TPN, IV/Lopressor/Amiodarone/Lasix/AB. Discharge POC: Need to re-evaluate plan closer to discharge. Original was to discharge to daughter Mary's home at [address] in [place] with Rocky BUSTAMANTE RN.
--- NOTE | 2025-03-03 16:15 | CARDSERVLU ---
Echocardiogram with Lumason completed after protocol screening completed. Allergies verified.
Patent IV site: _briefly interrupted fluids and heparin gtt LH, excellent blood return.____
IV site flushed with 0.9% NaCl pre and post administration.
Diluted bolus method utilized to enhance visualization of ventricular sandoval.
Total volume given: __3.5__ mL under direction echosonographer.
IV fluids and heparin reconnected immediately.
Patient tolerated all procedures well without complications.
[2025-03-03] MEDS: NOVOLOG FLEXPEN-MODERATE RESISTANCE 3 UNITS SC (18:00)
[2025-03-03 18:07] LABS: Glucose - Point of Care 239 mg/dl (70-99)
[2025-03-03] MEDS: Parenteral Nutrition, Central 1180 IV (21:36)
[2025-03-03] MEDS: CORDARONE 518 MG IV (23:13)
[2025-03-03] MEDS: NOVOLOG FLEXPEN 4 UNITS SC (23:15)
[2025-03-03 23:24] LABS: Glucose - Point of Care 261 mg/dl (70-99)
[2025-03-04] VITALS (42 sets, daily range): BP systolic 100–196; BP diastolic 58–102; PULSE 2–118; BMI 37.7
[2025-03-04] MEDS: LOPRESSOR 5 MG IV ×2 (02:23→11:46)
[2025-03-04] MEDS: LOPRESSOR 2.5 MG IV (02:27)
[2025-03-04] MEDS: ZOSYN 50 IV ×4 (04:17→23:42)
[2025-03-04 04:27] LABS: Reticulocyte Count 1.2 % (0.4-2.8)
[2025-03-04 04:28] LABS: APTT 58.6 Sec (23.4-35.0)
[2025-03-04 05:06] LABS: B.E. 5.8 mmol/L; HCO3 32.8 mmol/L (21-28); O2 Saturation % 93.4 % (94-98); PCO2 58 mmHg (35-48); PO2 64 mmHg (83-108)
[2025-03-04 05:14] LABS: Calcium 7.9 mg/dl (8.4-10.2); Carbon Dioxide 32 mmol/L (22-30); Chloride 108 mmol/L (98-107); Estimated Creatinine Clearance 72 ml/min; Glucose 201 mg/dl (70-99); Magnesium 2.3 mg/dl (1.6-2.3); Potassium 3.7 mmol/L (3.5-5.1); Sodium 145 mmol/L (135-145); eGFR > 60.00
[2025-03-04 05:19] LABS: Blood Urea Nitrogen 52 mg/dl (9-20)
[2025-03-04 05:20] LABS: Glucose - Point of Care 206 mg/dl (70-99)
[2025-03-04] MEDS: NOVOLOG FLEXPEN 4 UNITS SC (06:15)
[2025-03-04] MEDS: NOVOLOG FLEXPEN-MODERATE RESISTANCE 3 UNITS SC ×2 (06:16→11:57)
[2025-03-04] MEDS: VENTOLIN NEBULES 1.25 MG INH ×2 (07:35→19:36)
[2025-03-04] MEDS: SODIUM CHLORIDE 3% FOR INHALATION 1 VIAL INH ×2 (07:35→19:36)
[2025-03-04] MEDS: ATROVENT NEBULES 0.5 MG INH ×2 (07:35→19:36)
--- NOTE | 2025-03-04 08:20 | W.PN.INTV ---
Addendum entered and electronically signed by Todd May MD 03/04/25 14:31:
Patient's blood culture from 03/01 is growing bacillus species, not anthracis. Follow-up sensitivities as well as final species identification. Consider surveillance blood culture x 1. Continue antibiotics with Zosyn although may need additional
coverage as Bacillus spp is likely beta-lactam resistant (per ICU pharmacist), hence we will start IV vancomycin. Consider ID consult.
Original Note:
Today's Communication / Plan
Recommendations
- Attempt BiPAP wean today
- Low threshold for intubation if respiratory status/hypercapnia worsens
- IV Lasix 40 mg BID
- 5 mg metoprolol q6h IV
- 12.5 mg carvedilol once this a.m.
- Consider transitioning TPN to Dobbhoff feeds depending on clinical status over the course of today
- Continue Zosyn antibiotics
- Monitor blood culture for speciation/susceptibilities
- Continue IV heparin
- Increase insulin aspart, monitor blood glucose
- Replete K
Assessment
-
Pt is a 74-year-old male with a pmh notable for afib (on eliquis), HFpEF, HTN, and diverticulitis who p/w L-sided abdominal pain, vomiting, & chills in the s/o recent ex lap for perforated diverticulitis & formation of end colostomy, followed by
colostomy reversal on 02/21/25. Found on CT a/p to have postoperative leak at the left colonic anastomosis site with extraluminal contrast, with a large degree of pneumoperitoneum (02/27). Gen surg performed exlap w colon resection and creation of an
end colostomy (02/27). Patient remained intubated and was transferred to the ICU postoperatively. Courier Delivery Driver services consulted for additional management/recommendations. Plan as below.
#Respiratory distress
#Hypercapnic respiratory acidosis
Patient placed onto bipap overnight 03/01 after pulling out NG tube & desatting to 80s with tachypnea & labored breathing. CT PE/LE US r/o PE or DVT 03/01. Likely 2/2 combination of: volume overload in s/o HFpEF, NG tube out leading to additional
intraabdominal pressure/volume/compression/pain, symptomatic afib w RVR. CXR (03/03): 'Hazy opacities in both lung bases, most compatible small bilateral pleural effusions and atelectasis. No focal consolidation or pneumothorax. Stable
cardiomediastinal silhouette.' 03/03 had episode of HTN, sweating, inability to speak 2/2 resp distress found to have hypercapnic acidosis, required bipap. ABG (03/03): pH 7.24, pCO2 73mmhg, bicarb 31.3. S/p bipap > VBG: pH 7.37, pCO2 55, bicarb
31.8. CXR 03/04 am: with worsening right-sided opacities; evidence of airspace collapse/atelectasis likely secondary to low inspiratory effort; some CP angle blunting bilaterally, likely some element of cardiopulmonary Mark. Appears worse than
03/03 CXR.
This a.m.: Satting 98% on bipap. Fluid balance -1001 ml.
- Bipap, wean as tolerated
- Low threshold for intubation, potentially today
- Continue 40mg IV lasix bid
- Lateral rotating mattress w percussion for resp clearance
- Afib mgmt as below
- Consider Precedex to improve sleep/rest
#Afib with RVR
Pt with HRs in the 130-140s 03/01. S/p metoprolol 10mg q6hr, no improvement. Likely contributing to his resp distress. Added amio 03/01 pm. Echo 03/03: Normal LV size & function; LVF 65%; mild TR, mildly elevated PASP OF 45mmhg.
Today: HR 118. K 3.7, Mg 2.3.
- Replete electrolytes with K>4, Mg>2 as needed
- Replete 20meq KCl today
- Continue amiodarone IV drip
- Start metoprolol 5mg IV q6h
- Continue heparin drip
- Cards consulted, appreciate recs
#HTN
Patient with systolic BPs in the 170�180s.
- Addition of metoprolol as above
-Give 12.5 mg carvedilol today
#Suspected bacteremia due to anastomotic leak, improved
#Leukocytosis
Pneumoperitoneum due to anastomotic leak s/p exploratory laparotomy with colon resection and end colostomy creation (02/27). Colonic contents in peritoneum - elevated infection risk intraabdominally. Pt has remained afebrile. Ostomy site not
infectious appearing on exam. With some pain to palpation around site, mild. Blood cx positive for gram positive bacilli. Lactic acid downtrending, elevated 2.6 on admission. NG tube pulled out by patient 03/01pm (had been putting out 200>600ml).
Ostomy output not documented. Assume current abx regimen is covering bacteremia given temps & WBC.
Today: WBC: 15.5>>>29.4>>>17.5. Afebrile.
- Continue Zosyn 3.375 q6h
- Trend blood cx for speciation, susceptibilities; pending
- Gen surg following, appreciate recs
- Pain mgmt: dilaudid 0.25mg q4hr prn, IV tylenol
#JOHN
#HFpEF, suspected acute on chronic exacerbation
With hx of HFpEF. Cards requesting prior echo. Last echo (unclear date) w LVEF 40-45% and only mild valve disease. BNP this admission elevated, 3370. JOHN likely 2/2 combination of cardiorenal & IV diuresis since 03/01.
Cr: 0.7 (02/27) >> 1.3>1.1
- Monitor Cr
- Diuresis plan as above
#Anemia
Hgb downtrending, initially thought to be post-op anemia. Has continued to downtrend. MCV 92.6 (not low). RDW only mildly elevated (14.7%). Not likely microcytic iron-def. More likely anemia of dz state in s/o infection/inflammation. Retic wnl 1.2.
Hgb 12.8>11.7>11.1>10.7
- Continue to monitor
- Trend H/H and transfuse if needed to keep hgb>7g/dL; keep plt>50k
#Circulatory shock - cardiogenic vs. septic; resolved
Patient extubated on 02/28 and weaned off levophed. No pressors 03/01 until pm. S/p levophed & phenylephrine 03/01pm.
Today 155/79 BP.
Pressors today: none
- Maintain MAP>65
#Lactic acidosis, resolved
Lactic acidosis in s/o bowel perf, OR, bacteremia. Lactic acid: 2.6>3.0>>>2.2>1.5
- Continue to monitor on abx
#Chronic:
-History of perforated diverticulitis s/p ex lap with splenic flexure takedown, drainage of intra-abdominal abscess and end colostomy creation (11/15/2024) with colostomy reversal, hepatic flexure takedown and lysis of adhesions (02/21/2025)
-HTN - monitor BP
-HLD - restart home simvastatin when able to tolerate PO
-SARAH
-Hx DVT/PE
-Pre-DM - glucose 209 on 03/03; convert low to moderate sliding scale insulin; add 8 units insulin aspart
#Global
- DVT ppx: heparin drip
- Code: full
- Diet: started TPN 03/02; PICC line placed 03/01; okay for sips/chips ; consider transition from TPN to Dobbhoff feeds, pending patient clinical status over the course of today
- GI ppx: famotidine
- Dispo: ICU level care today
Subjective Dataa
Subjective Data
Date of Service:
Date of Service: March 04, 2025
Chief Complaint: Courier Delivery Driver Follow Up
Subjective:
Daughters & daughter in law at bedside. Pt communicating via writing on whiteboard. Able to make needs known. Very upset about thirst level & inability to have water/ice chips with bipap on. Discussed at length w pt and family. Pt has not been
sleeping well, daughters say it is because of thirst.
Review of Systems
General: Other (Thirsty, dry mouth)
Objective Data
Data Reviewed
Vital Signs / I&O / Oxygen:
Vital Signs
Temp Pulse Resp BP Pulse Ox
97.4 F 118 30 155/79 98
03/04/25 03:14 03/04/25 07:37 03/04/25 07:37 03/04/25 07:00 03/04/25 07:37
Intake and Output
03/03/25 03/04/25 03/05/25
06:59 06:59 06:59
Intake Total 1625.8 / 1706.5 2137.1 / 2137.1
Output Total 1 / 1 3277 / 3277
Balance -425.2 / -494.5 -1139.9 / -1139.9
SaO2 [CPAP/PSV] 99
SaO2 [A/C] 100
SaO2 98
Nasal Cannula flow liters per 2
minute
Physical Exam
General: Other (On BiPAP, communicating with whiteboard; does not appear to be in respiratory distress on BiPAP)
HEENT: Normocephalic, Anicteric and Moist Mucous Membranes (Dry mouth)
Cardiovascular: Irregular Rhythm (irregular rhythm w tachycardia )
Respiratory: Other (On BiPAP, without visibly labored respirations without wheeze or rhonchi)
GI: Soft, Non Distended, Tender (abdomen tender to palpation in upper R quadrant adjacent to ostomy; otherwise nontender ), Other (pt with 2 abdominal SUSAN drains with slight serosanguinous drainage (R & L of ostomy) ) and Other (colostomy with
minimal output, some gas; area surrounding ostomy without erythema, purulence, drainage; thin strip wound vac in place adjacent to ostomy)
Neurology: Awake, Alert, Oriented and Other (Frustrated)
Skin: Good Color
Labs/Micro/Reports
Lab Data
03/04/25 04:09
Laboratory Results
03/03/25 03/04/25 03/04/25
09:05 04:09 05:00
APTT 58.6 H
pH 7.24 L 7.36
pCO2 73 H* 58 H
pO2 72 L 64 L
HCO3 31.3 H 32.8 H
O2 Delivery Level
Microbiology
03/01/25 19:46 Blood/Venous Blood Culture - Preliminary
No Growth in 48 hours- Final report to follow
03/01/25 20:44 Blood/Venous Blood Culture - Preliminary
Positive culture in progress
03/01/25 20:44 Blood/Venous Gram Stain - Preliminary
[2025-03-04 08:46] LABS: Hematocrit 36.1 % (39.0-52.0); Hemoglobin 11.7 g/dL (13.0-18.0); Mean Corp Hgb Conc. 32.4 g/dL (33.0-37.0); Mean Corpuscular Volume 94.8 fL (80.0-94.0); Nucleated Red Blood Cells % 0.3 % (-); Platelet Count 335 10^3/uL (130-400); Red Cell Dist. Width 14.9 % (11.5-14.5)
--- NOTE | 2025-03-04 09:00 | PTCARENOTE ---
continues in AFib on monitor , Bipap throughout night , sats are 98% currently , he is agitated at times , Dr Sandoval and Dr Wilson having discussions with family and patient regarding possible intubation due to patient being so weak and poor
inspiratory effort
[2025-03-04] MEDS: NSS (PRESERVATIVE FREE) 8 ML IV (09:41)
[2025-03-04] MEDS: PEPCID 20 MG IV (09:41)
[2025-03-04] MEDS: DESENEX/MITRAZOL/ZEASORB 1 APPLIC TOPICAL ×2 (09:41→21:13)
--- NOTE | 2025-03-04 10:04 | W.PN.CD ---
Today's Communication / Plan
-
- Continue IV amiodarone.
- Continue standing dose of IV Lopressor 5 mg Q6.
- Echocardiogram yesterday with LVEF of 65%; RV appeared dilated with low normal systolic function.
- Continue Lasix 40 mg IV BID.
Impression / Plan
-
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
discharge on 02/25 following elective colostomy reversal for repeated perforated diverticulitis in 11/2024, found to have anastomotic leak CT imaging with pneumoperitoneum (02/27) requiring ex lap with bowel resection and end colostomy creation. He
remains in ICU, extubated, on pressure support and in persistent Afib with RVR into the 140s.
Suspected permanent Afib with RVR
- Home dose Lopressor is 50mg AM and 25mg PM -- baseline rate uncertain per pt history. We have no records to confirm
- Elevated rates secondary to acute medical illness.
- Still with suboptimal heart rate control.
- Continue IV amiodarone.
- Continue standing dose of IV Lopressor 5 mg Q6.
- Plan is to try to stop AMIO when able to control rate with enteral BB.
HFrecEF:
- Preop eval: Echo LVEF 40-45% and only mild valve disease but date of echo unclear, perhaps 07/2023.
- Cath: No obstructive CAD but date of cath uncertain, perhaps 08/2023.
- Echocardiogram yesterday with LVEF of 65%; RV appeared dilated with low normal systolic function.
- Continue Lasix 40 mg IV BID.
- Will try to optimize with GDMT as hospitalization progresses (critically ill at this time).
Postoperative anastomotic leak status post exploratory laparotomy, colon resection and creation of end colostomy:
- Management as per Surgical team; on antibiotics.
Physical Exam
Vital Signs/Labs
Vital Signs
Temp Pulse Resp BP Pulse Ox
97.4 F 118 30 155/79 98
03/04/25 03:14 03/04/25 07:37 03/04/25 07:37 03/04/25 07:00 03/04/25 07:37
03/03/25 03/04/25 03/05/25
06:59 06:59 06:59
Actual Weight 105.6 kg 106 kg
03/04/25 10:45
03/04/25 04:09
PT 19.9 Sec (11.4-14.6) H 02/27/25 16:52
INR 1.67 02/27/25 16:52
APTT 58.6 Sec (23.4-35.0) H 03/04/25 04:09
Magnesium 2.3 mg/dl (1.6-2.3) 03/04/25 04:09
Triglycerides Cancelled 03/02/25 12:15
03/02/25
03:45
Rte-N-Ttaufgepjlb Pept 3370
Physical Exam
Constitutional: No acute distress and Comfortable
EENT: Anicteric
Cardiovascular: Pedal edema is absent, Systolic murmur absent, Rhythm/rate is irregular and S1S2 is normal
Respiratory: Respiratory effort normal, Wheeze Absent and Rhonchi Present
GI: Soft
Neuro/Psych: AO x 3
Other: Skin (warm, dry)
Data Reviewed
-
Date of Service: March 04, 2025
EKG: Tracing Personally Visualized and interpreted (Telemetry: AFIB with RVR)
Echo: Report Reviewed by me (03/03/25: EF 65%)
Medical Tests (PFT, Pathology etc): Discussed with Nurse, Discussed with Patient and Discussed with Family (2 daughters at bedside)
Labs: Labs Reviewed by me
Critical Care Time (in minutes): 42
[2025-03-04] MEDS: COREG 12.5 MG PO (10:43)
[2025-03-04] MEDS: LASIX 40 MG IV ×2 (10:43→21:13)
--- NOTE | 2025-03-04 11:32 | PHA.VAN.IN ---
Assessment
- Assessment
Renal Function: Appears similar to baseline
Maximum Temperature: 97.6F
Minimum Temperature: 97F
Concomitant Antimicrobials: Zosyn
AUC Dosing Plan
- Dosing Variables
Dosing Weight (kg): 106
Dosing CrCl (ml/min): 72
Vd coefficient (L/kg): 0.7
- Empiric Dosing
Initial / Loading Dose: 2000MG
Maintenance Regimen: 1000MG Q12H
Estimated AUC (mcg*h/mL): 434
Estimated Peak (mcg*h/mL): 25.1
Estimated Trough (mcg/ml): 12.4
Estimated Half Life (H): 10.8
- Monitoring
No levels ordered at this time: Awaiting steady state
Pharmacokinetics Vancomycin I
- -
Patient Age: 74
Patient Sex: Male
Vancomycin Day #: 1
Indication: Bacteremia
Requesting Provider: Lalo
Pertinent Antimicrobial Allergies:
NKDA
Height / Weight:
Height 5 ft 6 in
Actual Weight 106 kg
Pertinent Past Medical History: Colostomy closure 02/19/25 - pain near stoma
- Vital Signs / Lab Results
Temp Pulse Resp BP Pulse Ox
97.4 F 112 30 189/88 98
03/04/25 03:14 03/04/25 10:43 03/04/25 07:37 03/04/25 10:43 03/04/25 07:37
Lab Results - Hematology
03/01/25 03/02/25 03/03/25
12:07 03:45 01:59
WBC Cancelled 21.3 H 18.9 H
03/04/25 03/04/25
04:09 10:45
WBC 17.5 H Cancelled
Lab Results - Chemistry
03/02/25 03/03/25 03/04/25
03:45 01:59 04:09
BUN 40 H 48 H 52 H
Creatinine 1.1 1.3 1.0
Estimated Creat Clear 66 55 72
Albumin 2.4 L
Microbiology Results
03/01/25 20:44 Blood Culture - Preliminary
Blood/Venous Bacillus species,not anthracis
Gram Stain - Preliminary
03/01/25 19:46 Blood Culture - Preliminary
Blood/Venous No Growth in 48 hours- Final report to follow
[2025-03-04] MEDS: KCL 20 MEQ PO (11:45)
[2025-03-04] MEDS: VANCOCIN 540 MG IV (11:45)
--- NOTE | 2025-03-04 11:45 | W.PN.GS2 ---
Addendum entered and electronically signed by Sahil Sandoval MD 03/04/25 13:09:
I saw and examined the patient.
The SUPER[employer]'s note was reviewed and I agree with the note.
Comment: GI function returning with flatus in appliance, remains tired and with poor inspiratory effort, tolerating biPAP, c/o dry mouth. Pain controlled. Plan for TPN to cont, IV abx, hold on diet advancement until pulmonary status improves
Original Note:
Today's Communication / Plan
-
Continue ABX and TPN
Assessment / Plan
-
Patient is a 74 yo M POD 11 s/p reversal of end colostomy POD 5 s/p ex lap, colon resection, end colostomy creation for anastomotic leak,
Tachypnea, tachycardia, hypoxia requiring continuous BiPAP support
UOP excellent, H/H stable, drains ss, WBC improving
compensated respiratory acidosis on this am's ABG
Stoma PPV with gas/bowel sweat
Cards following, appreciate recs, on amiodarone gtt
Anticipate ileus
Plan:
-- Ok to Cont hep gtt
-- Continue TPN
-- If intubated will place dobhoff and start trickle tf otherwise NPO with sips of clears d/t respiratory status
-- Abx: c/w IV Zosyn
-- Discussed with ICU team
Subjective Data
-
Date of Service: March 04, 2025
Pt seen and examined at bedside with Dr. Sandoval. Denies n/v. Tired. Has not slept in 4 days. Family at bedside, addressed questions/concerns
Objective Data
-
Intake and Output
03/03/25 03/04/25 03/05/25
06:59 06:59 06:59
Intake Total 1625.8 / 1706.5 2137.1 / 2137.1
Output Total 2050 3277 / 3277
Balance -425.2 / -494.5 -1139.9 / -1139.9
Intake:
Oral fluids 75 / 75
IV fluids (Total) 710.8 / 741.5 706.1 / 706.1
amio 400.8 / 417.5 384.1 / 384.1
heparin 310 / 324 322 / 322
IV piggybacks 390 / 390 290 / 290
TPN/PPN 450 / 500 1141 / 1141
Output:
Drain Output (Total) 101 / 101
Left Abdomen Celso-Loyd 33 / 33
Right Abdomen Celso-Loyd 68 68
Urine, Hoffman 1950 / 2099 3250 / 3250
Vital Signs
Temp Pulse Resp BP Pulse Ox
97.4 F 112 30 189/88 98
03/04/25 03:14 03/04/25 10:43 03/04/25 07:37 03/04/25 10:43 03/04/25 07:37
Lab Results
03/04/25 10:45
03/04/25 04:09
Calcium 7.9 mg/dl (8.4-10.2) L 03/04/25 04:09
Phosphorus 4.5 mg/dl (2.5-4.5) 03/02/25 03:45
Magnesium 2.3 mg/dl (1.6-2.3) 03/04/25 04:09
Total Bilirubin 2.2 mg/dl (0.2-1.3) H 03/02/25 03:45
Direct Bilirubin 1.9 mg/dl (0.0-0.4) H 03/02/25 03:45
AST 24 U/L (17-59) 03/02/25 03:45
ALT 19 U/L (0-50) 03/02/25 03:45
Alkaline Phosphatase 91 U/L (38-126) 03/02/25 03:45
Total Protein 4.8 g/dl (6.3-8.2) L 03/02/25 03:45
Albumin 2.4 g/dl (3.5-5.0) L 03/02/25 03:45
Physical Exam
-
Gen: Increased work of breathing, on Bipap
Abd: soft, approp ttp, incision cdi with sarah, stoma with some edema, flatus/bowel sweat in appliance
SUSAN to RLQ with SSF, SUSAN to LLQ with minimal fibrous outputs
Midline incision with intact dressing
Patient has a hoffman catheter: Yes
Patient has a central line: Yes (PICC)
[2025-03-04] MEDS: NOVOLOG FLEXPEN 8 UNITS SC ×3 (11:57→23:45)
--- NOTE | 2025-03-04 12:00 | PTCARENOTE ---
pt off of bipap , on 4L NC with sat 98% he is currently having discussions with family regarding long-term medical care decisions and his wishes , his sats 95-98% , he is acceptable for intubation and temporary tube feeds for airway protection and
strengthening , he has multiple family visiting and he has requested a magnetic tape winder and pastoral care to visit , plan is to intubate pt after all family is able to talk to patient , the patient is currently oriented and conversing with with family by
texting or writing to conserve energy , additionally he has not slept in the last 3 days and plan is to add Precedex gtt for his agitation and comfort , he is being continually monitored at bedside for any further resp distress
[2025-03-04 12:08] LABS: Glucose - Point of Care 237 mg/dl (70-99)
[2025-03-04 12:12] LABS: APTT 78.8 Sec (23.4-35.0)
[2025-03-04] MEDS: PRECEDEX 100 IV (12:18)
--- NOTE | 2025-03-04 12:44 | CHAP ---
Addendum entered by Cora Hein 03/04/25 16:14:
Mr. Garcia received Sacrament of the Sick this afternoon. Emotional and spiritual support also provided to him and his family at bedside.
Original Note:
Insurance Collector request relayed to on-call story editor. Awaiting call back.
[2025-03-04] MEDS: HEPARIN 25000 UNITS/250 ML IV (12:55)
--- NOTE | 2025-03-04 14:48 | CM ---
POD #5. GI function returning-flatus, TPN, IV/AB, poor inspiratory effort. Discharge POC: Need to re-evaluate plan closer to discharge. Original was to discharge to daughter Mary's home at [address] in [place] with Rocky BUSTAMANTE
RN.
--- NOTE | 2025-03-04 15:00 | W.SUR.POST ---
Surgical Immediate Post Op
Note
Bedside Endotracheal Intubation Procedure
Date of procedure: 03/04/2025
Pre Op Diagnosis: Acute hypoxic + hypercapnic respiratory failure
Post Op Diagnosis: Same as above
Procedure Performed: Endotracheal intubation
Primary Proceduralist: Dr. May
Secondary Surgeons: N/A
Anesthesia/RSI: 20 mg etomidate + 80 mg succinylcholine
Estimated Blood Loss: N/A
Fluids: N/A
Drains/Shunts: N/A
Specimens/Cultures: N/A
Doppler/Duplex/Angio (Y/N): N/A
Complications: No immediate complications
Procedure details: Patient was preoxygenated with BVM at 100% FiO2. RSI given as above and then patient placed into the sniff position, and S4 glidescope inserted into the oropharynx with glottis easily visible. Size 9.0 ETT inserted into glottis
and seen going through cords. Stiffening wire then removed. Satisfactory ETT position was confirmed via color capnometry. ETT was secured with ETT-jaeger and tape. CXR is ordered and pending. There were no immediate complications.
[2025-03-04] MEDS: SUBLIMAZE 100 MCG IV (15:15)
[2025-03-04 15:48] LABS: B.E. 4.2 mmol/L; HCO3 26.7 mmol/L (21-28); O2 Saturation % 97.3 % (94-98); PCO2 32 mmHg (35-48); PO2 63 mmHg (83-108)
--- NOTE | 2025-03-04 15:50 | W.SUR.POST ---
Surgical Immediate Post Op
Note
Arterial Catheter Insertion Procedure
Date of procedure: 03/04/2025
Pre Op Diagnosis: Circulatory shock; need for frequent blood gas measurements; mechanical ventilation
Post Op Diagnosis: Same as above
Procedure Performed: Arterial catheter insertion
Primary proceduralist: Dr. May
Secondary Surgeons: N/A
Anesthesia: N/A
Estimated Blood Loss: 5cc
Fluids: N/A
Drains/Shunts: N/A
Specimens/Cultures: N/A
Doppler/Duplex/Angio (Y/N): N/A
Complications: No immediate complications
Operative Findings: After informed verbal consent obtained from family members, the patient was positioned with his distal right upper extremity supinated. Palpable radial pulse as well as palpable ulnar pulse identified. Collateral flow
appreciated with a positive Gonzalo test. Sterile technique was employed with handwashing, cap, gown, face mask and sterile gloves. The right radial artery site was cleaned with a ChloraPrep. Ultrasound guidance was utilized to identify the patent
radial artery which had good pulsatility. Integral-guidewire (Arrow) technique was used. The catheter was inserted into the patient's skin and advanced until pulsatile blood flow was seen inside the catheter. The guidewire was advanced through
the needle and catheter to the hub. The outer catheter was advanced over the needle and wire into the artery. The needle�guidewire unit was removed entirely. The arterial catheter was attached to the tubing with appropriate waveform seen.
Arterial line was secured into place using a Ethilon 3-0 suture. The insertion site was covered with a Biopatch and the entire catheter was then covered with a Tegaderm. There were no immediate complications.
[2025-03-04] MEDS: SUBLIMAZE 100 IV (16:09)
[2025-03-04] MEDS: ADRENALIN 258 MG IV (16:14)
[2025-03-04] MEDS: LEVOPHED 258 MG IV (16:14)
[2025-03-04] MEDS: SUBLIMAZE 50 MCG IV ×3 (16:26→23:31)
[2025-03-04] MEDS: VERSED 2 MG IV (16:28)
[2025-03-04] MEDS: NOVOLOG FLEXPEN-MODERATE RESISTANCE 1 UNITS SC ×2 (17:16→23:46)
[2025-03-04 17:17] LABS: Glucose - Point of Care 181 mg/dl (70-99)
[2025-03-04] MEDS: VANCOCIN 200 IV (17:17)
--- NOTE | 2025-03-04 17:19 | PTCARENOTE ---
Dr. May at bedside to intubate patient. Precedex stopped for borderline BP prior to intubation. Once intubated, DHT placed for nutrition/meds. Pt hypotensive post intubation; gurjit initiated. Upon attempting to obtain CXR monitor alarmed, pt
noted to be in asystole briefly. converted back to afib without intervention upon preparing for CPR. Gurjit stopped and transitioned to levophed. Pt again having episodes of low HR underlying afib with heart rates as low as 20s. Atropine 1 mg given, HR
increased. Amiodarone gtt also stopped. Epi gtt added as charted. Pressors double concentrated. Once, BP improvded, sedation added. Howell placed by television audio engineer. Dr. Dietz updated. Family updated by provider and in to visit patient at this time.
Primary RN updated.
--- NOTE | 2025-03-04 17:37 | PTCARENOTE ---
Discussed evening dose of Lasix w/ Dr. May. Dose to be delayed until 1999. Primary RN updated.
[2025-03-04 18:00] LABS: B.E. 5.6 mmol/L; HCO3 28.6 mmol/L (21-28); O2 Saturation % 99.0 % (94-98); PCO2 35 mmHg (35-48); PO2 81 mmHg (83-108)
[2025-03-04 18:22] LABS: APTT 93.2 Sec (23.4-35.0)
[2025-03-04 18:53] LABS: Triglycerides 122 mg/dl (10-149)
[2025-03-04] MEDS: LASIX IV (19:16)
[2025-03-04] MEDS: DIPRIVAN 100 IV (19:18)
--- NOTE | 2025-03-04 20:00 | PTCARENOTE ---
Resumed care of pt this evening. Received pt intubated and sedated. Pt is on fentanyl gtt, TPN gtt, Heparin gtt, and double concentrated levo IV. Pt is also in restraints. Pt is arousable to verbal and tactile stimuli under light sedation. Pt is in
A-fib on tele monitor, has +1 edema b/l lower extremities and +3 penile/scrotal edema. Radial and pedal pulses are palpable bilaterally. Pt tolerating vent settings satting at 99% pulse ox. On auscultation pt lungs are diminished but otherwise
clear. Pt tolerating trickle feed via rt nare dobhoff. Pt's abdomen is round w/ hypoactive bowel sounds. SUSAN drains x2 are in place and draining minimal serosang drainage in the right SUSAN and purulent in the left SUSAN. Pts colostomy stoma is red and
budded w/ very minimal drainage. Pt has hoffman cath in place draining yellow colored urine. Pt's abdominal surgical dressings are clean dry and intact.
--- NOTE | 2025-03-04 20:30 | PTCARENOTE ---
Propofol gtt initiated due to pt becoming restless and asynchronous w/ vent. PRN dose of fentanyl bolus administered and fentanyl gtt titrated up.
[2025-03-04] MEDS: Parenteral Nutrition, Central 1180 IV (20:59)
[2025-03-04 23:22] LABS: Glucose - Point of Care 178 mg/dl (70-99)
[2025-03-05] VITALS (16 sets, daily range): BP systolic 90–149; BP diastolic 58–74; BMI 38.7
--- NOTE | 2025-03-05 | PTCARENOTE ---
Pt tolerating vent settings satting at 99% pulse ox. Pt suctioned via ETT for small amount of clear sputum.
[2025-03-05] MEDS: SUBLIMAZE 100 IV ×3 (02:03→16:29)
[2025-03-05] MEDS: LEVOPHED 258 MG IV (03:56)
[2025-03-05] MEDS: ZOSYN 50 IV ×4 (03:57→21:30)
[2025-03-05] MEDS: HEPARIN 25000 UNITS/250 ML IV ×2 (03:58→12:05)
--- NOTE | 2025-03-05 04:30 | PTCARENOTE ---
Double concentrated Levo gtt tapered down to 6 mcg/min per protocol. Propofol gtt titrated up to 10 mcg/kg/min for asynchrony w/ vent and restlessness.
[2025-03-05 05:10] LABS: B.E. 4.7 mmol/L; HCO3 27.9 mmol/L (21-28); O2 Saturation % 99.6 % (94-98); PCO2 35 mmHg (35-48); PO2 111 mmHg (83-108)
[2025-03-05 05:30] LABS: Hematocrit 31.8 % (39.0-52.0); Hemoglobin 10.4 g/dL (13.0-18.0); Mean Corp Hgb Conc. 32.7 g/dL (33.0-37.0); Mean Corpuscular Volume 92.2 fL (80.0-94.0); Platelet Count 282 10^3/uL (130-400); Red Cell Dist. Width 14.8 % (11.5-14.5)
[2025-03-05 05:32] LABS: Glucose - Point of Care 185 mg/dl (70-99)
[2025-03-05] MEDS: NOVOLOG FLEXPEN-MODERATE RESISTANCE 1 UNITS SC ×2 (05:50→18:34)
[2025-03-05] MEDS: NOVOLOG FLEXPEN 8 UNITS SC ×4 (05:50→23:44)
[2025-03-05] MEDS: VANCOCIN 200 IV ×2 (05:56→18:27)
[2025-03-05 06:29] LABS: Blood Urea Nitrogen 65 mg/dl (9-20); Calcium 8.3 mg/dl (8.4-10.2); Carbon Dioxide 27 mmol/L (22-30); Chloride 111 mmol/L (98-107); Estimated Creatinine Clearance 66 ml/min; Glucose 167 mg/dl (70-99); Magnesium 2.1 mg/dl (1.6-2.3); Potassium 3.6 mmol/L (3.5-5.1); Sodium 143 mmol/L (135-145); eGFR > 60.00
--- NOTE | 2025-03-05 07:26 | PHA.VAN.FU ---
Vancomycin Assessment / Plan
- Assessment
Renal Function: Stable (ELEVATED FROM BASELINE SCR 0.7, INCREASING BUN)
WBC's are: WNL
In the past 24 hrs, patient has been: Afebrile
Concomitant Antimicrobials: PIPERACILLIN/TAZOBACTAM
- Assessment - Therapeutic Drug Monitoring
Random Level: 03/06 @0600
- Follow Up
Pharmacy will continue to follow.
Vancomycin Follow UP
- -
Patient Age: 74
Patient Sex: Male
Vancomycin Day #: 2
Indication: Bacteremia
Requesting Provider: Lalo
Pertinent Antimicrobial Allergies:
NKDA
Height / Weight:
Height 5 ft 6 in
Actual Weight 108.6 kg
Pertinent Past Medical History: Colostomy closure 02/19/25 - pain near stoma
- Vital Signs / Lab Results
Temp Pulse Resp BP Pulse Ox
97.6 F 119 20 118/61 99
03/05/25 03:19 03/05/25 07:00 03/05/25 07:00 03/05/25 07:00 03/05/25 07:00
Lab Results - Hematology
03/03/25 03/04/25 03/04/25
01:59 04:09 10:45
WBC 18.9 H 17.5 H Cancelled
03/05/25
04:54
WBC 20.4 H
Lab Results - Chemistry
03/03/25 03/04/25 03/05/25
01:59 04:09 04:54
BUN 48 H 52 H 65 H
Creatinine 1.3 1.0 1.1
Estimated Creat Clear 55 72 66
Microbiology Results
03/01/25 19:46 Blood Culture - Preliminary
Blood/Venous No Growth in 72 hours- Final report to follow
03/01/25 20:44 Blood Culture - Preliminary
Blood/Venous Bacillus species,not anthracis
Gram Stain - Preliminary
[2025-03-05 07:41] LABS: APTT 83.4 Sec (23.4-35.0)
[2025-03-05] MEDS: NEUTRA-PHOS POWDER PACKET 500 MG TUBE (08:07)
[2025-03-05] MEDS: PEPCID 20 MG IV (08:08)
[2025-03-05] MEDS: NSS (PRESERVATIVE FREE) 8 ML IV (08:08)
[2025-03-05] MEDS: LASIX 40 MG IV ×2 (08:09→20:17)
[2025-03-05] MEDS: MIRALAX 17 GRAMS TUBE (08:09)
[2025-03-05] MEDS: DESENEX/MITRAZOL/ZEASORB 1 APPLIC TOPICAL ×2 (08:10→20:17)
--- NOTE | 2025-03-05 08:27 | W.PN.INTV ---
Today's Communication / Plan
Recommendations
Mechanical ventilation
Broad-spectrum antibiotic
Check set of surveillance blood cultures today
TPN + tube feeds
Maintain SpO2 >90-94%
Keep MAP >65
Continue ICU level of care for this critically ill patient
Assessment
-
Impression:
#Acute respiratory failure with hypoxia and hypercapnia requiring continuous BiPAP now on mechanical ventilation (intubated 03/04/2025)
#Pneumoperitoneum due to anastomotic leak s/p exploratory laparotomy with colon resection and end colostomy creation (OR date: 02/27/2025)
#Leukocytosis due to above with transient bacteremia with sepsis
#Positive blood culture with Bacillus spp
#Circulatory shock in the setting of sedation and transient bacteremia due to anastomotic leak - shock state resolved since 02/28/2025
#Acute anemia (mild)
#JOHN
#Acute on chronic HFpEF
#Thrombocytosis likely reactive due to above - resolved
#Lactic acidosis - normalized
#Hyperbilirubinemia
#Hypoalbuminemia
#History of perforated diverticulitis s/p ex lap with splenic flexure takedown, drainage of intra-abdominal abscess and end colostomy creation (11/15/2024) with colostomy reversal, hepatic flexure takedown and lysis of adhesions (02/21/2025)
#A-fib on Eliquis
#Significant pauses + bradycardia likely due to Coreg given earlier on 03/04+ amiodarone drip + Lopressor in the setting of RSI given during intubation - pauses + bradycardia now resolved
#Hypertension
Plan:
- Patient was intubated on 03/04 due to inability to remain off continuous BiPAP and insufficient nutritional intake/unable to take PO meds
- Continue with mechanical ventilation with daily SAT/SBT if clinically appropriate
- Maintain plateau pressure <30 and titrate FiO2 + PEEP to keep SpO2 >90-94%
- Continue aspiration precautions; keep HOB >30-45�
- prn nebulized bronchodilators - not currently bronchospastic
- Oropharyngeal + deep ETT suctioning with subglottic as needed
- Daily CXR + blood gas
- Daily vent adjustments as needed based on blood gas and SaO2
- Low level of sedation with goal RASS as 0 to -2
- Postoperative management as per general surgery
- He previously was extubated on 02/28/2025 however was mostly reliant on BiPAP almost continuously since that time, hence intubation as above
- GOC discussion held with the family on 03/04 prior to intubation, and they were in agreement with him being reintubated but are aware that he is critically ill, extremely weak and may need trach/PEG if unable to extubate. The pt has already
stated that he would not want a feeding tube or to have a trach
- Given his significant cardiac pauses and bradycardia after being intubated on 03/04, currently off amiodarone, Coreg also stopped as well as Lopressor
- Cardiology aware of these pauses and if he becomes tachycardic again then we can restart amiodarone drip again
- Goal HR<110
- Replete K>4, Mg>2
- CTA chest obtained on 03/01/2025 --> negative for an acute PE; bilateral pleural effusions with pneumoperitoneum and upper abdominal ascites; believe he is having compressive atelectasis and a restrictive defect from his abdominal pathology in
setting of physical deconditioning/generalized weakness, which in conjunction with his rapid A-fib is causing his shortness of breath
- Continue w/ diuresis - on lasix 40mg IV BID; trend UOP and with strict I/O
- Echo performed on 03/03 showing preserved LVEF at 65% with trace AI, moderately elevated PASP at 45 mmHg with a dilated RV with low�normal systolic function
- Patient's blood culture from 03/01 is growing Bacillus spp., not anthracis. Follow-up sensitivities as well as final species identification. Obtain surveillance blood culture x 1. Continue antibiotics with Zosyn and IV vanco added on 03/04 as
Bacillus spp is likely beta-lactam resistant (per ICU pharmacist) - consider ID consult.
- Given that his SUSAN drain on left is draining purulent fluid, check CT A/P
- Since he is going down for CT, I will recheck a CT chest and also will check a CT head given his recent altered mental status
- Sport bed
- Continue prn DuoNebs - his phlegm production is not as prominent as it was prior to this past (03/03); if HR too unstable then will need to hold albuterol
- LE duplex negative for DVT; there is a right lower extremity superficial venous thrombus seen in the GSV
- Maintain MAP>65
- Continue vasopressors with levophed
- If Levophed requirements are increasing towards 15 mcg/min, then start vasopressin
- Replete calcium levels as needed (used corrected calcium)
- Consider given supplemental albumin to keep levels >3g/dL
- Maintain euglycemia with goal BG 140-180; HbA1c: 6.2 on 02/28/2025
- Trend H/H and transfuse if needed to keep Hb>7g/dL; keep plt>50k (given postoperative status)
- Continue TPN and tube feeds; GI function has returned
- DVT ppx: heparin gtt due to A-fib
Continue ICU level of care for this critically ill patient.
Critical care statement: A total of 44 minutes of critical care time was provided for this patient today. This includes management of unstable vital signs, evaluation of the patient at bedside, reviewing the patient�s pertinent medical records
including radiographs, microbiology, laboratory evaluations, and��discussion with primary team, consultants, pharmacy, nutrition, physical therapy, case management, charge nurse, critical care nursing, and respiratory therapy.
Subjective Dataa
Subjective Data
Date of Service:
Date of Service: March 05, 2025
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
Subjective:
Patient was seen and evaluated this morning. Afebrile overnight. Intubated yesterday. After he was intubated he developed significant pauses with severe bradycardia, requiring atropine 1 mg x 1 in addition to epinephrine drip + Levophed.
Beta-rey (Coreg) and amiodarone were also stopped. No significant pauses seen overnight and he is no longer bradycardic. SUSAN drain on left side of abdomen is now draining purulent fluid. Patient's daughters, Marj and Tammy both present at
bedside and all questions were answered. He is currently intubated on AC/CMV at 18/450/5/40% with PIP 20 cmH2O, VTe 426 and breathing at 19 breaths/minute. Sedated on propofol at 10 mcg/kg/min and fentanyl at 100 mcg/hr. Also on TPN, heparin drip
and Levophed at 8 mcg/min.
Review of Systems
General: Unobtainable - Sedation (+ Intubated)
Objective Data
Data Reviewed
Vital Signs / I&O / Oxygen:
Vital Signs
Temp Pulse Resp BP Pulse Ox
97.6 F 119 20 118/61 99
03/05/25 03:19 03/05/25 07:00 03/05/25 07:00 03/05/25 07:00 03/05/25 08:22
Intake and Output
03/04/25 03/05/25 03/06/25
06:59 06:59 06:59
Intake Total 2137.1 / 2218.8 3153.2 / 3153.2
Output Total 3277 / 3327 1730 / 1730
Balance -1139.9 / -1108.2 1423.2 / 1423.2
SaO2 [CPAP/PSV] 99
SaO2 [A/C] 100
SaO2 99
Nasal Cannula flow liters per 2
minute
Physical Exam
General: Respiratory Distress (negative), Comfortable, Chills (negative) and Sweats (negative)
HEENT: Normocephalic, Anicteric and Other (ETT in place)
Cardiovascular: Irregular Rhythm (Irregularly irregular) and Peripheral Edema (negative)
Respiratory: Wheeze (negative), Crackles (Bibasilar), Rhonchi (negative), Accessory Resp Muscle Use (negative), Stridor (negative) and ET Tube (Mechanical breath sounds heard bilaterally)
GI: Soft, Non Distended, Tender (abdomen tender to palpation in upper R quadrant adjacent to ostomy; otherwise nontender ), NG Tube and Other (pt with 2 abdominal SUSAN drains with slight serosanguinous drainage from the right side of abdomen, and
purulent drainage from the left side of abdomen)
Neurology: Tremors (negative) and Other (Sedated)
Skin: Warm, Dry, Cyanosis (negative) and Jaundice (negative)
Labs/Micro/Reports
Lab Data
03/05/25 04:54
Laboratory Results
03/04/25 03/04/25 03/04/25
11:43 15:41 17:48
APTT 78.8 H 93.2 H
pH 7.53 H 7.52 H
pCO2 32 L 35
pO2 63 L 81 L
HCO3 26.7 28.6 H
O2 Delivery Level
03/05/25 03/05/25
04:54 07:18
APTT 83.4 H
pH 7.51 H
pCO2 35
pO2 111 H
HCO3 27.9
O2 Delivery Level
Microbiology
03/01/25 19:46 Blood/Venous Blood Culture - Preliminary
No Growth in 72 hours- Final report to follow
03/01/25 20:44 Blood/Venous Blood Culture - Preliminary
Bacillus species,not anthracis
03/01/25 20:44 Blood/Venous Gram Stain - Preliminary
--- NOTE | 2025-03-05 08:40 | PTCARENOTE ---
Assumed care of pt. Intubated and sedated. Pt is on fentanyl gtt, TPN gtt, Heparin gtt, Propofol and double concentrated levo IV. Pt is also in restraints. Pt is arousable to verbal and tactile stimuli under light sedation. A-fib on tele monitor,
has +1 edema b/l lower extremities and +3 penile/scrotal edema. Radial and pedal pulses are palpable bilaterally. Pt tolerating vent settings satting at 99% pulse ox. Lungs CTA. Pt tolerating trickle feed via rt nare dobhoff. Pt's abdomen is round
w/ hypoactive bowel sounds. SUSAN drains x2 are in place and draining minimal serosang drainage in the right SUSAN and purulent in the left SUSAN. Pts colostomy stoma is red and budded w/ very minimal drainage, + flatus. Pt has hoffman cath in place draining
yellow colored urine. Pt's abdominal surgical dressings are clean dry and intact. Family at bedside and updated.
[2025-03-05] MEDS: DIPRIVAN 100 IV ×2 (08:42→18:27)
--- NOTE | 2025-03-05 08:42 | W.PN.CD ---
Today's Communication / Plan
-
Watch off of AV maik blocking agents given severe bradycardia with pauses up to 13 seconds yesterday
If heart rates persist in the 130�140 range, we will restart IV amiodarone.
Avoid Precedex
Impression / Plan
-
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
discharge on 02/25 following elective colostomy reversal for repeated perforated diverticulitis in 11/2024, found to have anastomotic leak CT imaging with pneumoperitoneum (02/27) requiring ex lap with bowel resection and end colostomy creation. He
remains in ICU in persistent Afib with RVR.
Acute hypoxic respiratory failure
- Severe, threat to life. Ventilator dependent.
- Reintubated 03/04/2025 for poor mental status on BiPAP
- CXR with pleural effusions
- Continue IV Lasix 40 mg BID
- Ventilator management per ICU team
- Avoid further Precedex due to bradycardia with long pauses
Shock
- Severe, diagnosis is a threat to life.
- Possibly septic with bacillus growing from 03/01 blood cultures versus iatrogenic from sedation
- Continue empiric antibiotics
- Recommend repeat blood cultures
- Consider ID consult
- Agree with norepinephrine for goal MAP >65 mmHg
Severe bradycardia with pauses
- Occurred on 03/04/2025 in the setting of Precedex, IV amiodarone, and beta-rey. All have since been stopped.
- No recurrence on telemetry overnight
- Continue to monitor.
Suspected permanent Afib with RVR
- Home dose Lopressor is 50mg AM and 25mg PM -- baseline rate uncertain per pt history. We have no records to confirm
- Elevated rates secondary to acute medical illness.
- As above, he had severe bradycardia with long pauses in the setting of Precedex, IV amiodarone, and beta-rey
- If heart rates persist in the 130�140 range, we will restart IV amiodarone
- Continue heparin drip
HFrecEF:
- Preop eval: Echo LVEF 40-45% and only mild valve disease but date of echo unclear, perhaps 07/2023.
- Cath: No obstructive CAD but date of cath uncertain, perhaps 08/2023.
- Echocardiogram 03/03/2025 with LVEF of 65%; RV appeared dilated with low normal systolic function.
- Continue Lasix 40 mg IV BID.
- Will try to optimize with GDMT as hospitalization progresses (critically ill at this time).
Postoperative anastomotic leak status post exploratory laparotomy, colon resection and creation of end colostomy:
- Management as per Surgical team; on antibiotics.
CCT: 34 minutes
Subjective: yesterday patient was not responsive on BiPAP so was intubated. Started on Precedex. In that setting had severe bradycardia with pauses up to 13 seconds. Precedex was switched to fentanyl. Amiodarone was stopped. And beta-blockers
were held.
Telemetry: A-fib with heart rates 100s�120s. No pauses since yesterday afternoon.
Drips: levo 6, heparin, fentanyl, propofol
Physical Exam
Vital Signs/Labs
Vital Signs
Temp Pulse Resp BP Pulse Ox
97.6 F 119 20 118/61 99
03/05/25 03:19 03/05/25 07:00 03/05/25 07:00 03/05/25 07:00 03/05/25 08:22
03/04/25 03/05/25 03/06/25
06:59 06:59 06:59
Actual Weight 233 lb 11.04 oz 239 lb 6.752 oz
03/05/25 04:54
PT 19.9 Sec (11.4-14.6) H 02/27/25 16:52
INR 1.67 02/27/25 16:52
APTT 83.4 Sec (23.4-35.0) H 03/05/25 07:18
Magnesium 2.1 mg/dl (1.6-2.3) 03/05/25 04:54
Triglycerides 122 mg/dl (10-149) 03/04/25 17:48
03/02/25 03/04/25 03/05/25
03:45 04:09 04:54
Est-T-Amyzjbyvric Pept [id number]
Physical Exam
Constitutional: Other (Intubated and sedated)
Cardiovascular: Rhythm/rate is irregular, Pedal edema present and Murmur/rub/gallop absent
Respiratory: Other (Intubated, breathing comfortably on vent, lungs clear anteriorly)
Data Reviewed
-
Date of Service: March 05, 2025
Medical Decision Making: Reviewed Test Results, Independent Historian Assessment, Test Interpretation and Review of Case with other Provider
EKG: Tracing Personally Visualized and interpreted
Echo: Report Reviewed by me
X-Ray/CT/US/MRI/NUC/PET: Image Personally Visualized and interpreted and Discussed with Physician
Labs: Labs Reviewed by me
Critical Care Time (in minutes): 34
[2025-03-05] MEDS: POTASSIUM PHOSPHATE 259.0909 MEQ IV (08:43)
--- NOTE | 2025-03-05 11:41 | PTCARENOTE ---
Surgical team to bedside. Purulent drainage noted at umbilicus at incision site and L SUSAN drain. CT ordered. blood cx X1 performed.
[2025-03-05] MEDS: OMNIPAQUE 50 ML PO (11:53)
[2025-03-05] MEDS: SUBLIMAZE 50 MCG IV ×3 (12:13→16:30)
[2025-03-05 12:18] LABS: Glucose - Point of Care 225 mg/dl (70-99)
[2025-03-05] MEDS: NOVOLOG FLEXPEN-MODERATE RESISTANCE 3 UNITS SC (12:20)
[2025-03-05] MEDS: SODIUM PHOSPHATE 255 MEQ IV (12:21)
--- NOTE | 2025-03-05 12:44 | OR.RPT ---
Addendum entered and electronically signed by Sahil Sandoval MD 03/16/25 10:14:
The assistance of Dr Braxton was required due to the complexity of the procedure. During the procedure he assisted with exposure, resection, stoma creation and closure of the wound.
Original Note:
Operative Report
Operative Report
Primary Surgeon: Jaime
Assisting Surgeon: Fox
Pre-op Diagnosis: Pneumoperitoneum
Post-op Diagnosis: Anastomotic leak
Procedure Performed: Exploratory laparotomy, colon resection, creation end colostomy
Anesthesia Type: GETA
Specimen / Cultures: Hollywood-colonic anastomosis
Estimated Blood Loss: 40cc
Complications: None immediate
Operative Findings: Release of air upon entering abdomen, extensive feculent contamination, disruption of anastomosis encompassing roughly 40% of common channel staple line; anastomosis resected with 80mm purple load FREDY staplers, end colostomy
created and matured through prior stoma site; irrigated until effluent clear, 19 fr suresh drains to right and left abdomen
DOS: 02/27/25
Indications: This 74M developed acute onset abdominal pain postoperative day 6 after Amish's reversal; and imaging showed pneumoperitoneum. He had recently taken eliquis. Urgent exploratory laparotomy was planned. Kcentra was given
preoperatively.
Description of procedure: The patient was placed on the operating table in the supine position. General anesthesia was induced. A time-out was completed verifying correct patient, procedure, site, positioning, and special equipment prior to
beginning this procedure. An nasogastric tube was placed. The abdomen was prepped and draped in the usual sterile fashion. [place] were removed from the midline incision and the abdomen was entered. Feculent contamination was noted to all four
quadrants and was irrigated thoroughly. The anastomosis was identified and a disruption at the staple line was identified. The anastomosis was stapled off proximally and distally and it's blood supply controlled with a ligasure. The specimen passed
off the table. The abdomen was irrigated with 8 liters of warm sterile saline and effluent ran clear after this. The small bowel was examined from Ligament of Treitz to terminal ileum and some filmy adhesions were lysed with cold nicki. The old
stoma site was opened at the skin and the fascial suture was cut. The proximal colon was brought out through the stoma site and secured gently with a nelson. 19 fr suresh drains were placed into the right and left abdomen. The midline fascia was
closed with running #1 PDS stratafix and the skin loosely reapproximated with sarah. The drains were secured with 2-0 nylon suture. The stoma was matured with 2-0 silk suture. Laterally the aperture of the stoma site was snugged at the fascial
level with 2-0 PDS suture. A midline dressing and drain dressings were applied. A stoma appliance was applied.
The patient tolerated the procedure well and was taken to the ICU intubated.
--- NOTE | 2025-03-05 12:59 | W.PN.GS2 ---
Addendum entered and electronically signed by Sahil Sandoval MD 03/05/25 15:35:
I saw and examined the patient.
The WAGE CONCILIATOR's note was reviewed and I agree with the note.
Comment: Intubated and sedated but easily arousable, some purulent output from left drain and midline, wbc rising, afebrile, plan for CT A/P today
Original Note:
Today's Communication / Plan
-
check CT abd/pelvis
Assessment / Plan
-
Patient is a 74 yo M POD 12 s/p reversal of end colostomy POD 6 s/p ex lap, colon resection, end colostomy creation for anastomotic leak,
VDRF, intubated 03/04/27
Hypotension/tachycardia. Pressors being weaned
Hypophosphatemia
UOP good, H/H stable
WBC rising today with purulence from incision and LLQ drain
Stoma PPV with gas/bowel sweat, tolerating trickle tube feedings via dobhoff thus far
Cards following, appreciate recs
Anticipated ileus
Plan:
-- Check CT abd/pelvis with po and iv contrast
-- Ok to Cont hep gtt
-- Replace Phos with NaPhos and KPhos, repeat labs later this evening
-- Continue TPN, discussed dosing with pharmacist and adjusted fats taking into account propofol rate
-- Trickle feeds via dobhoff/will hold off on increasing rate until more outputs from stoma
-- Abx: c/w IV Zosyn
Discussed care with ICU team and family on the unit
Subjective Data
-
Date of Service: March 05, 2025
Pt seen and examined at bedside with Dr. Sandoval. Comfortable on ventilator, awakens to deep stimulation but falls back asleep.
Objective Data
-
Intake and Output
03/04/25 03/05/25 03/06/25
06:59 06:59 06:59
Intake Total 2137.1 / 2218.8 3153.2 / 3280.9 2145.3 / 2145.3
Output Total 3277 / 3327 1730 / 1730 465 / 465
Balance -1139.9 / -1108.2 1423.2 / 1550.9 1680.3 / 1680.3
Intake:
IV fluids (Total) 706.1 / 738.8 1022.2 / 1065.9 266.3 / 266.3
Fentanyl 110 / 120 60 / 60
Propofol 57.6 / 64.0 38.4 / 38.4
amio 384.1 / 400.8 150.3 / 150.3
epinephrine gtt 7.6 / 7.6
heparin 322 / 338 384 / 400 96 / 96
levophed gtt 296.8 / 308.1 71.9 / 71.9
precedex 15.9 / 15.9
IV piggybacks 290 / 290 570 / 570 300 / 300
TPN/PPN 1141 / 1190 1176 / 1225 294 / 294
Tube feeding 110 / 120 60 / 60
Feeding tube flush amount 275 / 300 1225 / 1225
Output:
Drain Output (Total)
Left Abdomen Celso-Loyd 14 / 14 3 / 3
Right Abdomen Celso-Loyd 13 / 13
Urine, Hoffman 3250 / 3300 1715 / 1715 465 / 465
Vital Signs
Temp Pulse Resp BP Pulse Ox
98.3 F 129 18 114/65 99
03/05/25 12:30 03/05/25 12:00 03/05/25 12:00 03/05/25 07:30 03/05/25 12:00
Lab Results
03/05/25 04:54
Calcium 8.3 mg/dl (8.4-10.2) L 03/05/25 04:54
Phosphorus 0.9 mg/dl (2.5-4.5) L* 03/05/25 04:54
Magnesium 2.1 mg/dl (1.6-2.3) 03/05/25 04:54
Total Bilirubin 2.2 mg/dl (0.2-1.3) H 03/02/25 03:45
Direct Bilirubin 1.9 mg/dl (0.0-0.4) H 03/02/25 03:45
AST 24 U/L (17-59) 03/02/25 03:45
ALT 19 U/L (0-50) 03/02/25 03:45
Alkaline Phosphatase 91 U/L (38-126) 03/02/25 03:45
Total Protein 4.8 g/dl (6.3-8.2) L 03/02/25 03:45
Albumin 2.4 g/dl (3.5-5.0) L 03/02/25 03:45
Physical Exam
-
Gen: NAD, Vent to ETT
Abd: soft, approp ttp, stoma with some edema, flatus/bowel sweat in appliance, dobhoff in place
SUSAN to RLQ with SSF, SUSAN to LLQ with minimal fibrous/purulent outputs
Midline incision with intact sarah, purulent drainage note near the umbilicus
Patient has a hoffman catheter: Yes
Patient has a central line: Yes (PICC)
--- NOTE | 2025-03-05 18:01 | W.PN.UPDATE ---
Update Note
Progress Note Update
- CT guided placement of LUQ drain. ~700mL of purulent fluid removed
- CT scanner malfunctioned after placement of first drain and could not get restarted. Will have to try to target R perihepatic collection tomorrow. Family updated.
[2025-03-05 18:44] LABS: Glucose - Point of Care 165 mg/dl (70-99)
--- NOTE | 2025-03-05 18:48 | PTCARENOTE ---
Pt to IR for CT guided drain X2. only able to place 1 SUSAN below xiphoid. 700+cc brown to purlent foul smelling liquid removed. Unable to place 2nd drain due to CT failure. Plan to attempt second drain tomorrow. Pt tolerated procedure, increased
levophed after fentanyl bolus.
[2025-03-05] MEDS: Parenteral Nutrition, Central 1500 IV (21:10)
[2025-03-05 22:06] LABS: Blood Urea Nitrogen 63 mg/dl (9-20); Calcium 7.7 mg/dl (8.4-10.2); Carbon Dioxide 26 mmol/L (22-30); Chloride 107 mmol/L (98-107); Estimated Creatinine Clearance 66 ml/min; Glucose 208 mg/dl (70-99); Potassium 3.3 mmol/L (3.5-5.1); Sodium 140 mmol/L (135-145); eGFR > 60.00
--- NOTE | 2025-03-05 22:40 | PTCARENOTE ---
Assumed care of pt at 1900. Received pt intubated, #9.0 ETT 25cm at lip, AC 18/450/40/5, sedated on Fentanyl at 125mcg/hr, Propofol at 10mcg/kg/min, Heparin at 1600 units/hr, Levophed (double concentrated) at 6mcg/min and TPN. See med titration
flowsheets on worklist for titration details throughout the shift. TF infusing through DHT. AFib 90s on monitor, SpO2 100% on current vent settings. Assessment as documented in nursing shift assessment flowsheet. Daughter went home for the evening.
[2025-03-05] MEDS: NOVOLOG FLEXPEN-MODERATE RESISTANCE 5 UNITS SC (23:44)
[2025-03-05] MEDS: KCL 100 IV (23:51)
[2025-03-05 23:54] LABS: Glucose - Point of Care 283 mg/dl (70-99)
--- NOTE | 2025-03-06 00:38 | PTCARENOTE ---
Assessment unchanged. Remains on same drips and same vent settings. K+ repleted for 3.3 on 2100 labs (40meq rider).
[2025-03-06 01:29] LABS: Triglycerides 125 mg/dl (10-149)
[2025-03-06] MEDS: ZOSYN 50 IV ×4 (03:47→21:32)
[2025-03-06 03:58] VITALS: BMI 38.6
[2025-03-06 03:59] LABS: B.E. 3.7 mmol/L; HCO3 28.5 mmol/L (21-28); O2 Saturation % 99.4 % (94-98); PCO2 43 mmHg (35-48); PO2 138 mmHg (83-108)
[2025-03-06 04:10] LABS: Hematocrit 29.5 % (39.0-52.0); Hemoglobin 9.8 g/dL (13.0-18.0); Mean Corp Hgb Conc. 33.2 g/dL (33.0-37.0); Mean Corpuscular Volume 92.2 fL (80.0-94.0); Platelet Count 270 10^3/uL (130-400); Red Cell Dist. Width 15.0 % (11.5-14.5)
[2025-03-06 04:29] LABS: APTT 85.9 Sec (23.4-35.0)
[2025-03-06] MEDS: LEVOPHED 258 MG IV (04:30)
[2025-03-06 04:40] LABS: Blood Urea Nitrogen 62 mg/dl (9-20); Calcium 7.8 mg/dl (8.4-10.2); Carbon Dioxide 28 mmol/L (22-30); Chloride 110 mmol/L (98-107); Estimated Creatinine Clearance 66 ml/min; Glucose 221 mg/dl (70-99); Magnesium 1.9 mg/dl (1.6-2.3); Potassium 4.1 mmol/L (3.5-5.1); Sodium 142 mmol/L (135-145); eGFR > 60.00
[2025-03-06] MEDS: SUBLIMAZE 100 IV ×3 (04:51→21:31)
[2025-03-06] MEDS: HEPARIN 25000 UNITS/250 ML IV ×2 (05:04→21:31)
[2025-03-06] MEDS: NOVOLOG FLEXPEN-MODERATE RESISTANCE 3 UNITS SC ×2 (05:44→23:45)
[2025-03-06] MEDS: NOVOLOG FLEXPEN 8 UNITS SC (05:45)
[2025-03-06 05:54] LABS: Glucose - Point of Care 244 mg/dl (70-99)
--- NOTE | 2025-03-06 06:24 | PTCARENOTE ---
0400 assessment unchanged. CHG cloth bath done/linens changed around 0215, midline abd dressing and SUSAN dressings x3 changed around the same time. Remains on same drips, has been between 4-6mcg/min of Levo throughout the shift, currently at 5mcg/min.
--- NOTE | 2025-03-06 07:52 | PHA.VAN.FU ---
Vancomycin Assessment / Plan
- Assessment
Renal Function: Stable (BUN ELEVATED, TRENDING DOWN)
WBC's are: Trending Up
In the past 24 hrs, patient has been: Afebrile
Concomitant Antimicrobials: PIPERACILLIN/TAZOBACTAM
- Assessment - Therapeutic Drug Monitoring
Random Level: 18.6 DRAWN ~10 HR AFTER PREVIOUS DOSE VANCO 1000MG
- Dosing Plan
Dosing by Level: Hold off on dosing today
- Monitoring Plan
Random Level: 03/07 @0600
- Follow Up
Pharmacy will continue to follow.
Vancomycin Follow UP
- -
Patient Age: 74
Patient Sex: Male
Vancomycin Day #: 3
Indication: Bacteremia
Requesting Provider: Lalo
Pertinent Antimicrobial Allergies:
NKDA
Height / Weight:
Height 5 ft 6 in
Actual Weight 108.3 kg
Pertinent Past Medical History: Colostomy closure 02/19/25 - pain near stoma
- Vital Signs / Lab Results
Temp Pulse Resp BP Pulse Ox
97.7 F 95 18 130/48 100
03/06/25 03:57 03/06/25 07:00 03/06/25 07:00 03/05/25 20:17 03/06/25 07:00
Lab Results - Hematology
03/04/25 03/04/25 03/05/25
04:09 10:45 04:54
WBC 17.5 H Cancelled 20.4 H
03/06/25
03:52
WBC 26.0 H
Lab Results - Chemistry
03/04/25 03/05/25 03/05/25
04:09 04:54 21:06
BUN 52 H 65 H 63 H
Creatinine 1.0 1.1 1.1
Estimated Creat Clear 72 66 66
03/06/25
03:52
BUN 62 H
Creatinine 1.1
Estimated Creat Clear 66
Microbiology Results
03/01/25 19:46 Blood Culture - Preliminary
Blood/Venous No Growth in 4 days- Final report to follow
03/01/25 20:44 Blood Culture - Preliminary
Blood/Venous Bacillus species,not anthracis
Gram Stain - Preliminary
Therapeutic Drug Monitoring
Random Vancomycin 18.6 ug/ml 03/06/25 03:52
--- NOTE | 2025-03-06 08:22 | W.PN.INTV ---
Today's Communication / Plan
Recommendations
Mechanical ventilation
Broad-spectrum antibiotics
Follow up set of surveillance blood cultures today
TPN + tube feeds
Maintain SpO2 >90-94%
Keep MAP >65
Monitor drain output from IR drains placed 03/05 + this AM
Hopefully can do SBT trial tomorrow, but may need another 24-48 hrs; if unable to wean then will consider placing onto ASV vent mode
Continue ICU level of care for this critically ill patient
Assessment
-
Impression:
#Acute respiratory failure with hypoxia and hypercapnia requiring continuous BiPAP now on mechanical ventilation (intubated 03/04/2025)
#Pneumoperitoneum due to anastomotic leak s/p exploratory laparotomy with colon resection and end colostomy creation (OR date: 02/27/2025)
#Leukocytosis due to above with transient bacteremia with sepsis + intra-abdominal abscesses s/p IR drainage
#Positive blood culture with Bacillus spp
#Circulatory shock in the setting of sedation and transient bacteremia due to anastomotic leak - shock state resolved since 02/28/2025
#Acute anemia (mild)
#JOHN
#AMS due to TME
#Acute on chronic HFpEF
#Thrombocytosis likely reactive due to above - resolved
#Lactic acidosis - normalized
#Hyperbilirubinemia
#Hypoalbuminemia
#History of perforated diverticulitis s/p ex lap with splenic flexure takedown, drainage of intra-abdominal abscess and end colostomy creation (11/15/2024) with colostomy reversal, hepatic flexure takedown and lysis of adhesions (02/21/2025)
#A-fib on Eliquis
#Significant pauses + bradycardia likely due to Coreg given earlier on 03/04+ amiodarone drip + Lopressor in the setting of RSI given during intubation - pauses & bradycardia now resolved
#Hypertension
Plan:
- Patient was intubated on 03/04 due to inability to remain off continuous BiPAP and insufficient nutritional intake/unable to take PO meds
- Continue with mechanical ventilation with daily SAT/SBT if clinically appropriate
- Maintain plateau pressure <30 and titrate FiO2 + PEEP to keep SpO2 >90-94%
- Continue aspiration precautions; keep HOB >30-45�
- prn nebulized bronchodilators - not currently bronchospastic
- Oropharyngeal + deep ETT suctioning with subglottic as needed
- Daily CXR + blood gas
- Daily vent adjustments as needed based on blood gas and SaO2
- Low level of sedation with goal RASS as 0 to -2
- Postoperative management as per general surgery
- He previously was extubated on 02/28/2025 however was mostly reliant on BiPAP almost continuously since that time, hence intubation as above
- GOC discussion held with the family on 03/04 prior to intubation, and they were in agreement with him being reintubated but are aware that he is critically ill, extremely weak and may need trach/PEG if unable to extubate. The pt has already
stated that he would not want a feeding tube or to have a trach
- Given his significant cardiac pauses and bradycardia after being intubated on 03/04, currently off amiodarone, Coreg also stopped as well as Lopressor
- Cardiology aware of these pauses and if he becomes tachycardic again then we can restart amiodarone drip again
- Goal HR<110
- Replete K>4, Mg>2
- CTA chest obtained on 03/01/2025 --> negative for an acute PE; bilateral pleural effusions with pneumoperitoneum and upper abdominal ascites; believe he is having compressive atelectasis and a restrictive defect from his abdominal pathology in
setting of physical deconditioning/generalized weakness, which in conjunction with his rapid A-fib is causing his shortness of breath
- Continue w/ diuresis - on lasix 40mg IV BID; trend UOP and with strict I/O
- Trend serum HCO3 and if he starts to develop a contraction alkalosis, long if sCr starts to rise, then may want to cut back on diuresis
- Echo performed on 03/03 showing preserved LVEF at 65% with trace AI, moderately elevated PASP at 45 mmHg with a dilated RV with low�normal systolic function
- Patient's blood culture from 03/01 is growing Bacillus spp., not anthracis. Follow-up sensitivities as well as final species identification. Follow up surveillance blood culture x 1. Continue antibiotics with Zosyn and IV vanco added on 03/04 as
Bacillus spp is likely beta-lactam resistant (per ICU pharmacist) - consider ID consult.
- Given that his SUSAN drain on left is draining purulent fluid, CT C/A/P performed on 03/05 showing multiple intra-abdominal abscesses --> IR consulted and LUQ collection was drained on 03/05 with 700cc of purulent fluid removed --> drain remains in
place
- This AM, drain placed into right perihepatic collection with 500cc of turbid yellow/purulent fluid removed --> drain remains in place
- Monitor output from both IR drains as well as SUSAN drains
- CT Head shows no evidence of an acute intracranial pathology
- Sport bed
- Continue prn DuoNebs - his phlegm production is not as prominent as it was prior to this past (03/03); if HR too unstable then will need to hold albuterol
- LE duplex negative for DVT; there is a right lower extremity superficial venous thrombus seen in the GSV
- Maintain MAP>65
- Continue vasopressors with levophed
- If Levophed requirements are increasing towards 10-15 mcg/min, then start vasopressin
- Replete calcium levels as needed (used corrected calcium)
- Consider given supplemental albumin to keep levels >3g/dL
- Maintain euglycemia with goal BG 140-180;HbA1c: 6.2 on 02/28/2025 --> will start NPH BID, but if glucose remains elevated and uncontrolled then he will need insulin gtt
- Trend H/H and transfuse if needed to keep Hb>7g/dL; keep plt>50k (given postoperative status)
- Continue TPN and tube feeds; GI function has returned --> starting tube feeds today
- DVT ppx: heparin gtt due to A-fib
Continue ICU level of care for this critically ill patient.
Dr. May discussed patient's case with daughters x2 today and answered all their questions.
Critical care statement: A total of 41 minutes of critical care time was provided for this patient today. This includes management of unstable vital signs, evaluation of the patient at bedside, reviewing the patient�s pertinent medical records
including radiographs, microbiology, laboratory evaluations, and��discussion with primary team, consultants, pharmacy, nutrition, physical therapy, case management, charge nurse, critical care nursing, and respiratory therapy.
Data:
CT Chest/Abdomen/Pelvis with IV contrast 03/05/2025:
Postoperative abdomen with developing intra-abdominal abscesses in the left upper quadrant and right upper quadrant of the abdomen, and smaller probable developing abscesses in the upper abdomen inferior to the distal stomach and in the anterior
pelvis deep to the anterior pelvic wall.
Small bilateral pleural effusions and bilateral lower lobe compressive atelectasis.
Subjective Dataa
Subjective Data
Date of Service:
Date of Service: March 06, 2025
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
Subjective:
Pt seen this AM. Daughters x 2 at bedside. Remains intubated on AC/CMV at 18/450/40%/5 with PIP [id number], VTe 426mL and breathing at 18 breaths/minute. BP via A line: 104/40, HR 86, Spo2 100% and EtCO2 42. Currently sedated on propofol at
20mcg/kg/min and fentanyl at 100mcg/hr. Also on TPN and levophed at 5 mcg/min.
Review of Systems
General: Unobtainable - Sedation
Objective Data
Data Reviewed
Vital Signs / I&O / Oxygen:
Vital Signs
Temp Pulse Resp BP Pulse Ox
97.9 F 101 18 164/59 100
03/06/25 08:00 03/06/25 09:14 03/06/25 07:00 03/06/25 09:14 03/06/25 07:57
Intake and Output
03/05/25 03/06/25 03/07/25
06:59 06:59 06:59
Intake Total 3153.2 / 3280.9 5388.0 / 5388.0
Output Total 1730 / 1730 2473 / 2473
Balance 1423.2 / 1550.9 2915.0 / 2915.0
SaO2 [CPAP/PSV] 99
SaO2 [A/C] 100
SaO2 100
Nasal Cannula flow liters per 2
minute
Physical Exam
General: Respiratory Distress (negative), Comfortable, Chills (negative) and Sweats (negative)
HEENT: Normocephalic, Anicteric and Other (ETT in place)
Cardiovascular: Irregular Rhythm (Irregularly irregular) and Peripheral Edema (negative)
Respiratory: Wheeze (negative), Crackles (Bibasilar), Rhonchi (negative), Accessory Resp Muscle Use (negative), Stridor (negative) and ET Tube (Mechanical breath sounds heard bilaterally)
GI: Soft, Non Distended, Tender (abdomen tender to palpation in upper R quadrant adjacent to ostomy; otherwise nontender ), NG Tube, Other (pt with 2 abdominal SUSAN drains with slight serosanguinous drainage from the right side of abdomen, and
purulent drainage from the left side of abdomen) and Other (2 drains placed by IR, one on each side of abdomen, both draining purulent material (L>R))
Neurology: Tremors (negative) and Other (Sedated)
Skin: Warm, Dry, Cyanosis (negative) and Jaundice (negative)
Labs/Micro/Reports
Lab Data
03/06/25 03:52
03/06/25 03:52
Laboratory Results
03/06/25
03:52
APTT 85.9 H
pH 7.43
pCO2 43
pO2 138 H
HCO3 28.5 H
O2 Delivery Level
Microbiology
03/01/25 19:46 Blood/Venous Blood Culture - Preliminary
No Growth in 4 days- Final report to follow
03/01/25 20:44 Blood/Venous Blood Culture - Preliminary
Bacillus species,not anthracis
03/01/25 20:44 Blood/Venous Gram Stain - Preliminary
[2025-03-06] MEDS: LASIX 40 MG IV ×2 (09:14→20:14)
[2025-03-06] MEDS: SUBLIMAZE 50 MCG IV (09:14)
[2025-03-06] MEDS: NSS (PRESERVATIVE FREE) 8 ML IV (09:15)
[2025-03-06] MEDS: DESENEX/MITRAZOL/ZEASORB 1 APPLIC TOPICAL ×2 (09:15→20:15)
[2025-03-06] MEDS: PEPCID 20 MG IV (09:15)
[2025-03-06 10:30] VITALS: BP 145/56; BP_SYST 97
[2025-03-06 10:33] VITALS: BP 141/55
--- NOTE | 2025-03-06 10:58 | W.PN.UPDATE ---
Update Note
Progress Note Update
- US guided drain into R perihepatic collection. 500 mL of turbid yellow/purulent fluid aspirated.
- Drain orders placed.
[2025-03-06] MEDS: DIPRIVAN 100 IV ×2 (11:06→17:03)
--- NOTE | 2025-03-06 11:26 | W.PN.CD ---
Today's Communication / Plan
-
A-fib, heart rates 90s�100s off of any rate control. Continue to monitor.
Continue IV heparin
Continue BID IV Lasix
Impression / Plan
-
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
discharge on 02/25 following elective colostomy reversal for repeated perforated diverticulitis in 11/2024, found to have anastomotic leak CT imaging with pneumoperitoneum (02/27) requiring ex lap with bowel resection and end colostomy creation. He
remains in ICU in persistent Afib with RVR.
Acute hypoxic respiratory failure
- Severe, threat to life. Ventilator dependent.
- Reintubated 03/04/2025 for poor mental status on BiPAP
- CXR with pleural effusions
- Continue IV Lasix 40 mg BID
- Ventilator management per ICU team
- Avoid further Precedex due to bradycardia with long pauses
Shock
- Severe, diagnosis is a threat to life.
- Likely septic with CT A/P on 03/05 showing multiple intra-abdominal abscesses
- Continue antibiotics
- Agree with norepinephrine for goal MAP >65 mmHg
Severe bradycardia with pauses
- Occurred on 03/04/2025 in the setting of Precedex, IV amiodarone, and beta-rey. All have since been stopped.
- No recurrence on telemetry
- Continue to monitor. Avoid further Precedex.
Suspected permanent Afib with RVR
- Home dose Lopressor is 50mg AM and 25mg PM -- baseline rate uncertain per pt history. We have no records to confirm
- Elevated rates secondary to acute medical illness.
- As above, he had severe bradycardia with long pauses in the setting of Precedex, IV amiodarone, and beta-rey
- Heart rates now decently controlled
- Continue heparin drip
HFrecEF:
- Preop eval: Echo LVEF 40-45% and only mild valve disease but date of echo unclear, perhaps 07/2023.
- Cath: No obstructive CAD but date of cath uncertain, perhaps 08/2023.
- Echocardiogram 03/03/2025 with LVEF of 65%; RV appeared dilated with low normal systolic function.
- Continue Lasix 40 mg IV BID.
- Will try to optimize with GDMT as hospitalization progresses (critically ill at this time).
Postoperative anastomotic leak status post exploratory laparotomy, colon resection and creation of end colostomy:
- Management as per Surgical team; on antibiotics.
Subjective: intubated and sedated.
Telemetry: A-fib with heart rates 90s�100s. No bradycardia or pauses.
Physical Exam
Vital Signs/Labs
Vital Signs
Temp Pulse Resp BP Pulse Ox
97.9 F 97 18 141/55 95
03/06/25 10:30 03/06/25 10:33 03/06/25 10:33 03/06/25 10:33 03/06/25 10:33
03/05/25 03/06/25 03/07/25
06:59 06:59 06:59
Actual Weight 239 lb 6.752 oz 238 lb 12.17 oz
03/06/25 03:52
03/06/25 03:52
PT 19.9 Sec (11.4-14.6) H 02/27/25 16:52
INR 1.67 02/27/25 16:52
APTT 85.9 Sec (23.4-35.0) H 03/06/25 03:52
Magnesium 1.9 mg/dl (1.6-2.3) 03/06/25 03:52
Triglycerides Cancelled 03/05/25 23:43
03/02/25 03/04/25 03/05/25
03:45 04:09 04:54
Suu-L-Qrtmgqrxifw Pept 6500 0 1979
Physical Exam
Constitutional: Other (Intubated and sedated)
Cardiovascular: Rhythm/rate is irregular, S1S2 is normal and Murmur/rub/gallop absent
Respiratory: Other (Intubated, breathing comfortably on vent)
Data Reviewed
-
Date of Service: March 06, 2025
Medical Decision Making: Reviewed Test Results, Independent Historian Assessment, Test Interpretation and Review of Case with other Provider
EKG: Tracing Personally Visualized and interpreted
Echo: Report Reviewed by me
Labs: Labs Reviewed by me
[2025-03-06 12:17] LABS: Glucose - Point of Care 270 mg/dl (70-99)
[2025-03-06] MEDS: NOVOLOG FLEXPEN-MODERATE RESISTANCE 5 UNITS SC ×2 (12:29→18:27)
[2025-03-06] MEDS: NOVOLOG FLEXPEN 11 UNITS SC ×3 (12:29→23:44)
[2025-03-06 13:09] VITALS: BP 127/49
[2025-03-06] MEDS: NOVOLIN N vial 0.08 UNITS SC (13:18)
--- NOTE | 2025-03-06 14:24 | W.PN.GS2 ---
Addendum entered and electronically signed by Sahil Sandoval MD 03/06/25 18:29:
I saw and examined the patient.
The Silk Spreader's note was reviewed and I agree with the note.
Comment: intubated and sedated, IR drains placed with purulent output, sarah removed from 2 locations on the midline incision with minimal purulent drainage, fascia intact, plan for iv abx, f/u cx, wean pressors, hep gtt, tpn
Original Note:
Today's Communication / Plan
-
IR drains
TPN/Trickle feeds
ABX
Assessment / Plan
-
Patient is a 74 yo M POD 13 s/p reversal of end colostomy POD 7 s/p ex lap, colon resection, end colostomy creation for anastomotic leak,
VDRF, intubated 03/04/27
Pressors now off, mild tachycardia
UOP good, H/H stable
Hypophosphatemia resolved with repletion
Afebrile, WBC trending up
Tolerating trickle tube feedings via dobhoff thus far
Cards following, appreciate recs
Anticipated ileus
CT from 03/05 with interim development of intraabdominal abscess in the LUQ and RUQ, IR consulted with LUQ drain placed on 03/05/25 (large volume of 700ml with placement) and RUQ drain placed today with purulent drainage from both. Cx pending.
Plan:
-- Appreciate IR continue with IR drains x2 and OR drains x2
-- Follow labs
-- Continue TPN, discussed dosing with pharmacist and adjusted fats taking into account propofol rate
-- Trickle feeds via dobhoff/will hold off on increasing rate until more outputs from stoma
-- Abx: c/w IV Zosyn
Discussed care with ICU team and family on the unit
Subjective Data
-
Date of Service: March 06, 2025
Pt seen and examined at bedside with Dr. Sandoval. Sedated, VDRF. Comfortable appearing.
Objective Data
-
Intake and Output
03/05/25 03/06/25 03/07/25
06:59 06:59 06:59
Intake Total 3153.2 / 3280.9 5388.0 / 5465.5 519.9 / 519.9
Output Total 1730 / 1730 2473 / 2523 575 / 575
Balance 1423.2 / 1550.9 2915.0 / 2942.5 -55.1 / -55.1
Intake:
IV fluids (Total) 1022.2 / 1065.9 1092.0 / 1134.5 269.9 / 269.9
Fentanyl 110 / 120 295.0 / 307.5 95.0 / 95.0
LR BOLUS 0 / 0
Propofol 57.6 / 64.0 161.4 / 167.9 58.4 / 58.4
amio 150.3 / 150.3
epinephrine gtt 7.6 / 7.6
heparin 384 / 400 400 / 416 64 / 64
levophed gtt 296.8 / 308.1 235.6 / 243.1 52.5 / 52.5
precedex 15.9 / 15.9
IV piggybacks 570 / 570 985 / 985 100 / 100
TPN/PPN 1176 / 1225 1351 / 1351
Tube feeding 110 / 120 250 / 260 40 / 40
Feeding tube flush amount 275 / 300 1700 / 1725 100 / 100
Amount instilled into Drain (
Total)
Right Upper Abdomen Celso-
Loyd B Placed in IR
Upper Abdomen A
Output:
Liquid stool amount
Colostomy
Drain Output (Total) 58 / 58
Left Abdomen Celso-Loyd 3 3 35 / 35
Right Abdomen Celso-Loyd
Upper Abdomen A
Urine, Hoffman 1715 / 1715 2390 / 2440 575 / 575
Vital Signs
Temp Pulse Resp BP Pulse Ox
98.2 F 100 18 127/49 98
03/06/25 12:19 03/06/25 13:09 03/06/25 13:09 03/06/25 13:03/06/25 13:10
Lab Results
03/06/25 03:52
03/06/25 03:52
Calcium 7.8 mg/dl (8.4-10.2) L 03/06/25 03:52
Phosphorus 3.2 mg/dl (2.5-4.5) 03/06/25 03:52
Magnesium 1.9 mg/dl (1.6-2.3) 03/06/25 03:52
Total Bilirubin 2.2 mg/dl (0.2-1.3) H 03/02/25 03:45
Direct Bilirubin 1.9 mg/dl (0.0-0.4) H 03/02/25 03:45
AST 24 U/L (17-59) 03/02/25 03:45
ALT 19 U/L (0-50) 03/02/25 03:45
Alkaline Phosphatase 91 U/L (38-126) 03/02/25 03:45
Total Protein 4.8 g/dl (6.3-8.2) L 03/02/25 03:45
Albumin 2.4 g/dl (3.5-5.0) L 03/02/25 03:45
Physical Exam
-
Gen: NAD, Vent to ETT
Abd: soft, approp ttp, stoma with some edema, flatus/bowel sweat and some minimal stool in appliance, dobhoff in place
SUSAN to RLQ with SSF, SUSAN to LLQ with purulent outputs, BL upper abd IR drains with purulent material
Midline incision with intact sarah, purulent drainage note near the umbilicus one staple and several sutures removed, packed.
Patient has a hoffman catheter: Yes
Patient has a central line: Yes (PICC)
[2025-03-06 16:41] VITALS: BP 122/51
--- NOTE | 2025-03-06 17:27 | PTCARENOTE ---
Updated Assessment trends as documented. Stable changes thru shift. Critical care team in and out at bedside. Clamp Remover, surgical teams, hospitalist teams in and out with family thru day. Dressing changes, drain management, and skin/wound cares as
per orders and protocols. Updates with pharmacy working thru accu data/glucose trends. Updates with daughters in and out at bedside. Continue follow up teaching and supportive cares thru shift. Update am IR team at bedside to place drain and follow
up collection.. Continue follow up input output trends. Drip/medication trends ongoing.
[2025-03-06 18:35] LABS: Glucose - Point of Care 242 mg/dl (70-99)
[2025-03-06] MEDS: Parenteral Nutrition, Central 1270 IV (20:13)
[2025-03-06] MEDS: NOVOLIN N vial 0.1 UNITS SC (20:39)
[2025-03-06 23:45] LABS: Glucose - Point of Care 240 mg/dl (70-99)
--- NOTE | 2025-03-07 | PTCARENOTE ---
pt assessment unchanged. prop/fent/levo/heparin/TPN continue. TF infusing. pt arousable to voice, nods y/n, BAZZI. restraints remain in place. afib on monitor. care continues.
[2025-03-07] MEDS: ZOSYN 50 IV ×2 (03:06→09:56)
[2025-03-07] MEDS: DIPRIVAN 100 IV ×2 (03:06→21:13)
[2025-03-07 03:21] LABS: B.E. 5.0 mmol/L; HCO3 29.9 mmol/L (21-28); O2 Saturation % 99.4 % (94-98); PCO2 45 mmHg (35-48); PO2 118 mmHg (83-108)
[2025-03-07 03:23] LABS: Hematocrit 27.4 % (39.0-52.0); Hemoglobin 8.9 g/dL (13.0-18.0); Mean Corp Hgb Conc. 32.5 g/dL (33.0-37.0); Mean Corpuscular Volume 91.3 fL (80.0-94.0); Platelet Count 293 10^3/uL (130-400); Red Cell Dist. Width 15.5 % (11.5-14.5)
[2025-03-07 03:38] LABS: APTT 74.5 Sec (23.4-35.0)
[2025-03-07] MEDS: LEVOPHED 258 MG IV (04:26)
[2025-03-07] MEDS: SUBLIMAZE 100 IV ×3 (04:26→20:00)
[2025-03-07 04:39] LABS: ALT (SGPT) 16 U/L (0-50); AST (SGOT) 23 U/L (17-59); Albumin 1.9 g/dl (3.5-5.0); Alkaline Phosphatase 188 U/L (38-126); Blood Urea Nitrogen 51 mg/dl (9-20); Calcium 7.9 mg/dl (8.4-10.2); Carbon Dioxide 29 mmol/L (22-30); Chloride 111 mmol/L (98-107); Estimated Creatinine Clearance 66 ml/min; Glucose 219 mg/dl (70-99); Magnesium 1.8 mg/dl (1.6-2.3); Potassium 3.8 mmol/L (3.5-5.1); Sodium 143 mmol/L (135-145); Total Protein 4.7 g/dl (6.3-8.2); Triglycerides 102 mg/dl (10-149); eGFR > 60.00
--- NOTE | 2025-03-07 04:48 | PTCARENOTE ---
AM labs sent. assessment unchanged. daughter at bedside overnight. care continues.
[2025-03-07 05:21] VITALS: BMI 38.8
[2025-03-07] MEDS: NOVOLOG FLEXPEN 11 UNITS SC (05:23)
[2025-03-07] MEDS: NOVOLOG FLEXPEN-MODERATE RESISTANCE 3 UNITS SC (05:23)
[2025-03-07 05:24] LABS: Glucose - Point of Care 244 mg/dl (70-99)
[2025-03-07] MEDS: NSS (PRESERVATIVE FREE) 8 ML IV (07:28)
[2025-03-07] MEDS: DESENEX/MITRAZOL/ZEASORB 1 APPLIC TOPICAL ×2 (07:29→19:37)
[2025-03-07] MEDS: LASIX 40 MG IV ×2 (07:29→19:37)
[2025-03-07] MEDS: PEPCID 20 MG IV (07:30)
[2025-03-07] MEDS: NOVOLIN N vial 0.1 UNITS SC (07:30)
--- NOTE | 2025-03-07 07:53 | PHA.VAN.FU ---
Vancomycin Assessment / Plan
- Assessment
Renal Function: Stable
WBC's are: Stable
In the past 24 hrs, patient has been: Afebrile
Concomitant Antimicrobials: PIPERACILLIN/TAZOBACTAM
- Assessment - Therapeutic Drug Monitoring
Random Level: 11.1 DRAWN ~33 HRS AFTER PREVIOUS DOSE VANCO 1000MG
Calculated ke: 0.0221
Calculated half life (H): 31.4
- Dosing Plan
Dosing by Level: Re-dose today (VANCO 1250MG X1)
- Monitoring Plan
Random Level: 03/08 @0600
- Follow Up
Pharmacy will continue to follow.
Vancomycin Follow UP
- -
Patient Age: 74
Patient Sex: Male
Vancomycin Day #: 4
Indication: Bacteremia
Requesting Provider: Lalo
Pertinent Antimicrobial Allergies:
NKDA
Height / Weight:
Height 5 ft 6 in
Actual Weight 108.9 kg
Pertinent Past Medical History: Colostomy closure 02/19/25 - pain near stoma
- Vital Signs / Lab Results
Temp Pulse Resp BP Pulse Ox
97.7 F 115 18 171/55 100
03/07/25 07:38 03/07/25 07:29 03/07/25 06:30 03/07/25 07:29 03/07/25 06:30
Lab Results - Hematology
03/04/25 03/04/25 03/05/25
04:09 10:45 04:54
WBC 17.5 H Cancelled 20.4 H
03/06/25 03/07/25
03:52 03:14
WBC 26.0 H 25.8 H
Lab Results - Chemistry
03/05/25 03/05/25 03/06/25
04:54 21:06 03:52
BUN 65 H 63 H 62 H
Creatinine 1.1 1.1 1.1
Estimated Creat Clear 66 66 66
Albumin
03/07/25
03:14
BUN 51 H
Creatinine 1.1
Estimated Creat Clear 66
Albumin 1.9 L
Microbiology Results
03/01/25 19:46 Blood Culture - Final
Blood/Venous No Growth - Final Report
03/06/25 10:50 Gram Stain - Preliminary
Abdomen
03/05/25 17:11 Gram Stain - Preliminary
Abdomen
03/05/25 11:35 Blood Culture - Preliminary
Blood/Venous No Growth in 24 hours- Final report to follow
Therapeutic Drug Monitoring
Random Vancomycin 11.1 ug/ml 03/07/25 03:14
--- NOTE | 2025-03-07 08:24 | PN.DE.MGMTRT ---
Insulin Management
- -
03/07/2025: Diabetes Management Consult
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 ED after discharge on 02/25 following elective
colostomy reversal for repeated perforated diverticulitis in 11/2024, found to have anastomotic leak CT imaging with pneumoperitoneum (02/27) requiring ex lap with bowel resection and end colostomy creation on 02/27.
Pt is in ICU, was intubated on 03/04 due to inability to remain off continuous BiPAP and insufficient nutritional intake/unable to take PO meds.
Pt remains critically ill, intubated and sedated, unable to interview. Family- 2 Dtrs at bedside, very supportive.
State Dad was pre-diabetic and not taking any diabetes medications. A1C 6.2%, Cr 1.1, eGFR >60
He was started on Tube feeds and TPN contributing to Hyperglycemia.
Current diabetes regimen includes: NPH 10 units BID and NovoLog 11 units Q6 hrs
Glucose has trended up to 244. Discussed with ICU team and Nurse during rounds and recommended initiate of Critical care glycemic protocol.
Will cont to follow.
Diabetes History
- -
Type of Diabetes: 2 requiring insulin
Pre-Admission Diabetes Regimen
03/07/25
03:14
Creatinine 1.1
Lab Results
Hemoglobin A1c 6.2 % (4.0-5.6) H 02/28/25 02:57
Insulin Pump Settings
IP Diabetes Regimen
03/06/25 03/06/25 03/06/25
12:06 18:25 23:44
Glucose
POC Glucose 270 H 242 H 240 H
03/07/25 03/07/25
03:14 05:22
Glucose 219 H
POC Glucose 244 H
Meal type: Lunch
Meal type: Breakfast
Patient Education
--- NOTE | 2025-03-07 08:26 | W.PN.CD ---
Today's Communication / Plan
-
continue IV heparin
continue IV lasix
Impression / Plan
-
74-year-old man with (suspected permanent) atrial fibrillation (on Eliquis), HFmrEF (last echo reportedly 45% EF), htn, h/o PE/DVT, BPH, GERD, h/o perforated diverticulitis and previous end colostomy with reversal who presented to [facility] ED after
discharge on 02/25 following elective colostomy reversal for repeated perforated diverticulitis in 11/2024, found to have anastomotic leak CT imaging with pneumoperitoneum (02/27) requiring ex lap with bowel resection and end colostomy creation. He
remains in ICU in persistent Afib with RVR.
Acute hypoxic respiratory failure
- Severe, threat to life. Ventilator dependent.
- Reintubated 03/04/2025 for poor mental status on BiPAP
- Continue IV Lasix 40 mg BID
- Ventilator management per ICU team
- Avoid further Precedex due to bradycardia with long pauses
Shock
- Severe, diagnosis is a threat to life.
- Likely septic with CT A/P on 03/05 showing multiple intra-abdominal abscesses, now s/p IR drain to yuliet-hepatic abscess 03/06
- Continue antibiotics
- Agree with norepinephrine for goal MAP >65 mmHg
Severe bradycardia with pauses
- Occurred on 03/04/2025 in the setting of Precedex, IV amiodarone, and beta-rey. All have since been stopped.
- No recurrence on telemetry
- Continue to monitor. Avoid further Precedex.
Suspected permanent Afib, now with RVR
- Home dose Lopressor is 50mg AM and 25mg PM -- baseline rate uncertain per pt history. We have no records to confirm
- Elevated rates secondary to acute medical illness.
- As above, he had severe bradycardia with long pauses in the setting of Precedex, IV amiodarone, and beta-rey
- Heart rates now decently controlled: avg 100
- Continue heparin drip for AC, with monitoring of Hgb
HFrEF: chronic
- Preop eval: Echo LVEF 40-45% and only mild valve disease but date of echo unclear, perhaps 07/2023.
- Cath: No obstructive CAD but date of cath uncertain, perhaps 08/2023.
- Echocardiogram 03/03/2025 with LVEF of 65%; RV appeared dilated with low normal systolic function.
- Continue Lasix 40 mg IV BID.
- Will try to optimize with GDMT as hospitalization progresses (critically ill at this time).
Postoperative anastomotic leak status post exploratory laparotomy, colon resection and creation of end colostomy:
- Management as per Surgical team; on antibiotics.
CCT 35 min
Physical Exam
Vital Signs/Labs
Vital Signs
Temp Pulse Resp BP Pulse Ox
97.7 F 115 18 171/55 99
03/07/25 07:38 03/07/25 07:29 03/07/25 06:30 03/07/25 07:29 03/07/25 08:16
03/06/25 03/07/25 03/08/25
06:59 06:59 06:59
Actual Weight 108.3 kg 108.9 kg
03/07/25 03:14
03/07/25 03:14
PT 19.9 Sec (11.4-14.6) H 02/27/25 16:52
INR 1.67 02/27/25 16:52
APTT 74.5 Sec (23.4-35.0) H 03/07/25 03:14
Magnesium 1.8 mg/dl (1.6-2.3) 03/07/25 03:14
Triglycerides 102 mg/dl (10-149) 03/07/25 03:14
03/02/25 03/04/25 03/05/25
03:45 04:09 04:54
Szb-G-Rskyzwahicw Pept 3370 [id number] 1980
03/07/25
03:14
Xlc-X-Arwgwrarbgb Pept 482
Physical Exam
Constitutional: Other (intubated)
EENT: Moist mucous membranes
Cardiovascular: Systolic murmur absent, Rhythm/rate is irregular and Pedal edema present
Respiratory: Other (ventilated)
Data Reviewed
-
Date of Service: March 07, 2025
EKG: Other (Tele: A fib, avg HR 100)
Echo: Report Reviewed by me
Labs: Labs Reviewed by me
Critical Care Time (in minutes): 35
[2025-03-07] MEDS: VANCOCIN 275 MG IV (08:39)
[2025-03-07 09:31] VITALS: BP 159/62
[2025-03-07 09:49] LABS: B.E. 3.3 mmol/L; HCO3 29.8 mmol/L (21-28); O2 Saturation % 99.7 % (94-98); PCO2 54 mmHg (35-48); PO2 112 mmHg (83-108)
--- NOTE | 2025-03-07 09:50 | PTCARENOTE ---
Family at bedside this am. Cardiology and wide area network engineer team rounds this am will follow am critical care rounds. Respiratory cares team at bedside SBT in process continue sedation wean abg, pulse ox and etco2 trends ongoing. Presently in ASV mode
40%fio2. Levophed and drip titration s per protocol and parameters. Family informed plan of cares and plan of day. Continue supportive cares and emotional support. Await surgery follow up, TPN and trickle feeds continue. Dressing changes and SUSAN
management as per orders.
--- NOTE | 2025-03-07 11:07 | W.PN.GS2 ---
Today's Communication / Plan
-
TPN
Abx
vent and pressor wean
Assessment / Plan
-
Patient is a 74 yo M POD 14 s/p reversal of end colostomy POD 8 s/p ex lap, colon resection, end colostomy creation for anastomotic leak,
Vent weaning in progress
Pressors at 1mcg levo, wean in progress
UOP good, H/H stable
Hypophosphatemia resolved
Afebrile, WBC trending down
Tolerating trickle tube feedings via dobhoff
Cards following, appreciate recs
Anticipated ileus
CT from 03/05 with interim development of intraabdominal abscess in the LUQ and RUQ, IR consulted with LUQ drain placed on 03/05/25 (large volume of 700ml with placement) and RUQ drain placed today with purulent drainage from both. Cx prelim no orgs
no wbc
Plan:
-- Monitor drains and follow cx
-- Follow labs
-- Continue TPN, discussed dosing with pharmacist and adjusted fats taking into account propofol rate
-- Trickle feeds via dobhoff/will hold off on increasing rate until more outputs from stoma
-- Abx: c/w IV Zosyn
-- Wean pressors, wean vent
Discussed care with nursing and family on the unit
Subjective Data
-
Date of Service: March 07, 2025
AF, sedated and intubated, rousable, follows commands
Objective Data
-
Intake and Output
03/06/25 03/07/25 03/08/25
06:59 06:59 06:59
Intake Total 5388.0 / 5465.5 2889.3 / 3030.6 526.65 / 526.65
Output Total 2473 / 2523 2155 / 2155 750 / 750
Balance 2915.0 / 2942.5 734.3 / 875.6 -223.35 / -223.35
Intake:
IV fluids (Total) 1092.0 / 1134.5 1088.3 / 1129.6 162.65 / 162.65
Fentanyl 295.0 / 307.5 335.0 / 350.0 57.5 / 57.5
LR BOLUS 0 / 0
Propofol 161.4 / 167.9 213.3 / 219.8 26.0 / 26.0
heparin 400 / 416 320 / 336 64 / 64
levophed gtt 235.6 / 243.1 220.0 / 223.8 15.15 / 15.15
IV piggybacks 985 / 985 250 / 250
TPN/PPN 1351 / 1351 911 / 976 224 / 224
Tube feeding 250 / 260 180 / 190 40 / 40
Feeding tube flush amount 1700 / 1725 450 / 475 100 / 100
Amount instilled into Drain (
Total)
Right Upper Abdomen Celso-
Loyd B Placed in IR
Upper Abdomen A
Output:
Liquid stool amount
Colostomy
Drain Output (Total) 58 / 58 130 / 130
Left Abdomen Celso-Loyd 35 / 35
Right Abdomen Celso-Loyd 8 / 8 5
Right Upper Abdomen Celso-
Loyd B Placed in IR
Upper Abdomen A 100 / 100
Urine, Hoffman 2390 / 2440 2024 / 2024 750 / 750
Vital Signs
Temp Pulse Resp BP Pulse Ox
97.7 F 111 18 159/62 100
03/07/25 07:38 03/07/25 10:30 03/07/25 10:30 03/07/25 09:31 03/07/25 10:30
Lab Results
03/07/25 03:14
03/07/25 03:14
Calcium 7.9 mg/dl (8.4-10.2) L 03/07/25 03:14
Phosphorus 3.5 mg/dl (2.5-4.5) 03/07/25 03:14
Magnesium 1.8 mg/dl (1.6-2.3) 03/07/25 03:14
Total Bilirubin 0.6 mg/dl (0.2-1.3) 03/07/25 03:14
Direct Bilirubin 1.9 mg/dl (0.0-0.4) H 03/02/25 03:45
AST 23 U/L (17-59) 03/07/25 03:14
ALT 16 U/L (0-50) 03/07/25 03:14
Alkaline Phosphatase 188 U/L (38-126) H 03/07/25 03:14
Total Protein 4.7 g/dl (6.3-8.2) L 03/07/25 03:14
Albumin 1.9 g/dl (3.5-5.0) L 03/07/25 03:14
Physical Exam
-
Gen: intubated and sedated
Abd: soft, minimal ttp, midline wound with 2 open areas with seropurulent drainage (packed), 2 OR drains removed, 2 IR drains with seropurulent output, stoma with some edema, productive of gas and liquid
Patient has a hoffman catheter: Yes
Patient has a central line: Yes
[2025-03-07 11:46] LABS: Glucose - Point of Care 236 mg/dl (70-99)
[2025-03-07] MEDS: NOVOLIN R INSULIN INFUSION 100 IV (12:35)
[2025-03-07] MEDS: NOVOLIN R 4 UNITS IV (12:38)
[2025-03-07] MEDS: HEPARIN 25000 UNITS/250 ML IV (12:40)
--- NOTE | 2025-03-07 12:57 | CON.ID ---
Addendum entered and electronically signed by Riley Ingram DO 03/07/25 14:54:
I personally performed a history and physical exam of the patient and discussed management with the resident. I reviewed the resident's note and agree with the documented findings and plan of care HPI/CC.
Impression / Plan:
#Clinical Sepsis
- Positive blood cultures with Bacillus spp. (Not anthracis) on 03/01; suspect contaminate
- Repeat blood culutures negative 03/05
- On Zosyn since 02/27
- On Vancomycin since 03/04
- No fevers since 02/27
- Follow WBC, Temp curve, discontinuing Zosyn. Will switch to Meropenem q6 + Vancomycin
#Intra-abdominal abscesses s/p IR drainage
- LUQ collection drained 03/05 with 700cc purulent fluid
- Right perihepatic drain collected 500 cc turbid yellow/purulent fluid
- Drains remain in place
- Follow cultures and adjust abx as needed
#Leukocytosis
#Acute respiratory failure with hypoxia and hypercapnia requiring mechanical ventilation
Original Note:
Consultation
-
Date/Time Consultation Requested: 03/07/2025 10:20am
Date/Time Consultation Performed: 03/07/2025 12:50pm
Requesting Provider: Dr. Anastacio Medrano
Performing Provider: Dr. Riley Ingram, Dr. Vannessa Tanner
Reason for Consultation: Bacteremia with sepsis + Intra-abdominal abscesses
Chief Complaint / Past History
Chief Complaint
Bacteremia with Sepsis + Intra-Abdominal Abscesses
History of Present Illness
74-year-old male with a significant past medical history including A-fib, colostomy in August 2024 for perforated diverticulitis and then underwent elective reversal of colostomy on 02/21. On 02/27 he presented to the hospital with nausea and vomiting
and was found to have free air in the abdomen and underwent ex lap, colon resection, end colostomy creation for anastomotic leak. Patient was intubated on 03/04 due to inability to remain off of continuous BiPAP, with plan for breathing trials to
get patient off of ventilator support.
Patient's blood culture from 03/01 grew Bacillus spp. (not anthracis) and repeat blood cultures from 03/05 did not show any growth. He has not had any fevers since 02/27 with a temperature of 100.6 F. His white count has stayed elevated throughout.
The SUSAN drain on the left was draining purulent fluid and CT C/A/P performed on 03/05 showed multiple intra-abdominal abscesses which were drained yielding 700 cc of purulent fluid. Another drain was placed into the right perihepatic collection
yielding 500 cc of turbid yellow/purulent fluid. He has been on Zosyn since 02/27 as well as now Vancomycin since 03/04. ID services were consulted for further input regarding further antibiotic therapy.
Patient was seen today while intubated. Was very somnolent and unable to give any history. Received history from his family who was there with him. They said that he has been feeling a bit warm recently however has not had any complaints of fever
or chills. Overall his pain levels have been tolerable and does not have any acute concerns at this time. Discussed with family confirming the recent history.
Past History
Additional Past Medical History:
Atrial Fibrillation
BPH
GERD
HTN
Obstructive Sleep Apnea
Chronic CHF
Hyperlipidemia
Additional Past Surgical History:
Colectomy 08/2024
Ex-Laparotomy and take down of splenic fissure drainage of intra-abdominal abscess with creation of end colostomy on 11/15/2024
Reanastomosis/Reversal of Colostomy 02/21/2025
Ex-lap, colon resection, end colostomy creation for anastomotic leak 02/27/2025
Subdural hematoma- irma holes/craniotomy 1990
Tonsillectomy (Child)
L TKA 2016
Allergy History:
No Known Allergies Allergy (Unverified 02/15/25 10:32)
Medications Reviewed: Yes
Current Antibiotics:
Zosyn (Piperacillin/Tazobactam)3.375gm q6
Vancomycin (1,250mg)
Social History
Tobacco: Non-Smoker
Alcohol: None
Drug: None
Employment: Retired
Family History
Family History: Not Pertinent
Review of Systems
Vital Signs
Temp Pulse Resp BP Pulse Ox
97.9 F 113 19 159/62 100
03/07/25 11:28 03/07/25 11:30 03/07/25 11:30 03/07/25 09:31 03/07/25 12:38
Physical Exam
Physical Exam
Constitutional: Other (Intubated and sedated)
Head: Normocephalic
Cardiovascular: Irregular Rate; Negative Murmur, Rub or Peripheral Edema
Pulmonary: Clear and Non Labored
Gastrointestinal: Soft, Non Tender, Non Distended and Other (Right sided ostomy intact, pink with no areas of necrosis seen. 2 drains placed, still draining yellowish purulent fluid)
Genito-Urinary: Hartman (Clear urine)
Extremities: Negative Edema, Clubbing or Cyanosis
Skin: Warm and Dry; Negative Rash
Neurological: Other (Sedated and intubated)
Psychological: Other (Sedated)
.
Lab / Diagnostic Study Results
03/07/25 03:14
03/07/25 03:14
Abs Immat Gran (auto) 1.4 10^3/uL (0-0.05) H 03/04/25 04:09
Absolute Neuts (auto) 12.9 10^3/uL (1.4-6.5) H 03/04/25 04:09
Absolute Lymphs (auto) 0.9 10^3/uL (1.2-3.4) L 03/04/25 04:09
Absolute Monos (auto) 2.2 10^3/uL (0.1-0.6) H 03/04/25 04:09
Absolute Basos (auto) 0.1 10^3/uL (0-0.2) 03/04/25 04:09
Immature Gran % 7.8 % (0-0.5) H 03/04/25 04:09
Neutrophils % 73.9 % (42.2-75.2) 03/04/25 04:09
Lymphocytes % 5.0 % (20.5-51.1) L 03/04/25 04:09
Monocytes % 12.5 % (1.7-9.3) H 03/04/25 04:09
Eosinophils % 0.1 % (0-6) 03/04/25 04:09
Basophils % 0.7 % (0-2) 03/04/25 04:09
PT 19.9 Sec (11.4-14.6) H 02/27/25 16:52
INR 1.67 02/27/25 16:52
Lactic Acid 1.5 mmol/L (0.7-2.0) 03/01/25 03:18
Microbiology Results
Micro:
03/05/25 17:11 Wound Culture - Preliminary
Abdomen Gram Stain - Preliminary
03/06/25 10:50 Wound Culture - Preliminary
Abdomen Gram Stain - Preliminary
03/05/25 11:35 Blood Culture - Preliminary
Blood/Venous No Growth in 48 hours- Final report to follow
03/01/25 19:46 Blood Culture - Final
Blood/Venous No Growth - Final Report
03/05/25 17:11 Anaerobic Culture - Pending
Abdomen
03/01/25 20:44 Blood Culture - Preliminary
Blood/Venous Bacillus species,not anthracis
Gram Stain - Preliminary
Imaging:
03/05/2025: CT Chest/abd/pel W Iv Contrast-
Postoperative abdomen with developing intra-abdominal abscesses in the left upper quadrant and right upper quadrant of the abdomen, and smaller probable developing abscesses in the upper abdomen inferior to the distal stomach and in the anterior
pelvis deep to the anterior pelvic wall.
Small bilateral pleural effusions and bilateral lower lobe compressive atelectasis.
02/27/2025: CT Abd/pel W Iv And Oral Contrast-
1. Postoperative leak at the left colonic anastomosis, with extraluminal contrast. Large degree of pneumoperitoneum.2. Trace bilateral pleural effusions with associated probable atelectasis. Cannot rule out superimposed left lower lobe pneumonia.
Assessment / Plan
74-year-old male with a significant past medical history including A-fib, colostomy in August 2024 for perforated diverticulitis and then underwent elective reversal of colostomy on 02/21. On 02/27 he presented to the hospital with nausea and vomiting
and was found to have free air in the abdomen and underwent ex lap, colon resection, end colostomy creation for anastomotic leak.
Plan:
#Clinical Sepsis in setting of possible transient bacteremia due to anastomotic leak
- Positive blood cultures with Bacillus spp. (Not anthracis) on 03/01
- Repeat blood culutures negative 03/05
- On Zosyn since 02/27
- Started on Vancomycin on 03/04
- No fevers since 02/27
- Follow WBC, Temp curve, discontinuing Zosyn. Will switch to Meropenem q6 + Vancomycin
#Intra-abdominal abscesses s/p IR drainage
- LUQ collection drained 03/05 with 700cc purulent fluid
- Right perihepatic drain collected 500 cc turbid yellow/purulent fluid
- Drains still in place
- Follow cultures and adjust abx as needed
#Leukocytosis due to above
#Acute respiratory failure with hypoxia and hypercapnia requiring mechanical ventilation
[2025-03-07] MEDS: NOVOLOG FLEXPEN SC ×2 (13:27→15:56)
[2025-03-07] MEDS: NOVOLOG FLEXPEN-MODERATE RESISTANCE SC (13:28)
[2025-03-07 13:50] VITALS: BP 118/51
[2025-03-07 13:56] LABS: Glucose - Point of Care 233 mg/dl (70-99)
--- NOTE | 2025-03-07 14:30 | CM ---
Vent wean, pressor wean, TPN, Dobhoff, IV/Zosyn/lasix/heparin/propofol/norepinephrine. Discharge POC: TBD with medical progression.
[2025-03-07 14:46] LABS: Glucose - Point of Care 182 mg/dl (70-99)
--- NOTE | 2025-03-07 14:49 | W.PN.INTV ---
Today's Communication / Plan
Recommendations
- Trial of ASV, failed, switch back to volume assist-control
- Daily SAT/SBT
- Follow-up ABG and chest x-ray in a.m.
- Infectious disease service consult
Assessment
-
Patient is a 74-year-old gentleman with history of A-fib and prior colostomy for perforated diverticulitis with subsequent elective reversal in early February. About a week later patient presented to the hospital with nausea vomiting and found to
have pneumoperitoneum. Patient had emergent exploratory laparotomy, colon resection and end colostomy creation for anastomotic leak. Patient was subsequently extubated but had to be reintubated due to continuous BiPAP need and ongoing sepsis.
Patient's initial blood cultures from 03 01 grew bacillus. Repeat cultures have been negative. Subsequently patient had another CT scan performed on 03/05 which showed multiple intra-abdominal abscesses and IR guided drainage was performed at 2
areas showing very purulent fluid. Patient has been on antibiotics and then persistent respiratory failure and shock. [employer] consultation was requested for further input.
03/07 overview: Patient currently intubated, mechanically ventilated and sedated. Current infusions Levophed infusing at 1, propofol 10, fentanyl 100, TPN, trickle feeding, Heparin infusion. Trace output noted in the ostomy bag. Purulent fluid
noted emerging from both drains placed by interventional radiology. Insulin infusion.
Assessment and plan.
#1. Septic shock with intra-abdominal abscesses
- s/p IR guided drainage x 2
- ID consult requested, antibiotics switched to vancomycin and meropenem
- Continue pressors as needed to keep MAP 65 or above
#2. Pneumoperitoneum due to anastomotic leak s/p exploratory laparotomy with colon resection and end colostomy creation (OR date: 02/27/2025)
- Colorectal surgery on case
- Currently colostomy in place with trace output, tolerating trickle feeding, TPN infusing along with insulin infusion
#3. Acute respiratory failure with hypoxia and hypercapnia requiring continuous BiPAP now on mechanical ventilation (intubated 03/04/2025)
- Continue volume assist-control
- Tried ASV at 120% on 03/07, patient failed, developed tachypnea and elevated pCO2, had to revert back to volume assist-control.
- Daily SAT/SBT
#4. HFrEF, LVEF 40-45%
- Cardiology service on case
- Continue Lasix 40 mg IV twice daily, monitor input and output closely
#5. Atrial Fibrillation.
- Rate controlled currently
-Continue heparin infusion. Has been on beta-rey and amiodarone in the past, discontinued due to bradycardia, doing well since.
#6. Bilateral pleural effusions
- Considering bilateral effusions, suspect underlying hypoalbuminemia and congestive heart failure contributing
- Continue diuresis as tolerated, follow-up chest x-ray and ABG in a.m.
Other medical diagnoses:
#Hyperbilirubinemia
#Hypoalbuminemia
#History of perforated diverticulitis s/p ex lap with splenic flexure takedown, drainage of intra-abdominal abscess and end colostomy creation (11/15/2024) with colostomy reversal, hepatic flexure takedown and lysis of adhesions (02/21/2025)
#Significant pauses + bradycardia likely due to Coreg given earlier on 03/04+ amiodarone drip + Lopressor in the setting of RSI given during intubation - pauses & bradycardia now resolved
#Hypertension
DVT prophylaxis. Currently on heparin infusion.
GI prophylaxis. Continue IV Pepcid
Continue ICU level of care for this critically ill patient.
Updated family at bedside.
Critical care statement: A total of 45 minutes of critical care time was provided for this patient today. This includes management of unstable vital signs, evaluation of the patient at bedside, reviewing the patient�s pertinent medical records
including radiographs, microbiology, laboratory evaluations, and��discussion with primary team, consultants, pharmacy, nutrition, physical therapy, case management, charge nurse, critical care nursing, and respiratory therapy.
Data:
CT Chest/Abdomen/Pelvis with IV contrast 03/05/2025:
Postoperative abdomen with developing intra-abdominal abscesses in the left upper quadrant and right upper quadrant of the abdomen, and smaller probable developing abscesses in the upper abdomen inferior to the distal stomach and in the anterior
pelvis deep to the anterior pelvic wall.
Small bilateral pleural effusions and bilateral lower lobe compressive atelectasis.
Subjective Dataa
Subjective Data
Date of Service:
Date of Service: March 07, 2025
Chief Complaint: [employer] Follow Up
Subjective:
Patient continues to be intubated, mechanically ventilated and sedated.
Review of Systems
General: Unobtainable - Sedation
Objective Data
Data Reviewed
Vital Signs / I&O / Oxygen:
Vital Signs
Temp Pulse Resp BP Pulse Ox
97.9 F 95 18 118/51 100
03/07/25 11:28 03/07/25 14:30 03/07/25 14:30 03/07/25 13:50 03/07/25 14:30
Intake and Output
03/06/25 03/07/25 03/08/25
06:59 06:59 06:59
Intake Total 5388.0 / 5465.5 2889.3 / 3030.6 1028.05 / 1028.05
Output Total 2473 / 2523 2155 / 2155 750 / 750
Balance 2915.0 / 2942.5 734.3 / 875.6 278.05 / 278.05
SaO2 [ASV] 99
SaO2 [CPAP/PSV] 99
SaO2 [A/C] 97
SaO2 100
Nasal Cannula flow liters per 2
minute
Physical Exam
General: Respiratory Distress (negative), Comfortable, Chills (negative) and Sweats (negative)
HEENT: Normocephalic, Anicteric and Other (ETT in place)
Cardiovascular: Irregular Rhythm (Irregularly irregular) and Peripheral Edema (negative)
Respiratory: Wheeze (negative), Crackles (Bibasilar), Rhonchi (negative), Accessory Resp Muscle Use (negative), Stridor (negative) and ET Tube (Mechanical breath sounds heard bilaterally)
GI: Soft, Non Distended, Tender (abdomen tender to palpation in upper R quadrant adjacent to ostomy; otherwise nontender ), NG Tube, Other (pt with 2 abdominal SUSAN drains with slight serosanguinous drainage from the right side of abdomen, and
purulent drainage from the left side of abdomen) and Other (2 drains placed by IR, one on each side of abdomen, both draining purulent material (L>R))
Neurology: Tremors (negative) and Other (Sedated)
Skin: Warm, Dry, Cyanosis (negative) and Jaundice (negative)
Labs/Micro/Reports
Lab Data
03/07/25 03:14
03/07/25 03:14
Laboratory Results
03/07/25 03/07/25
03:14 09:38
APTT 74.5 H
pH 7.43 7.35
pCO2 45 54 H
pO2 118 H 112 H
HCO3 29.9 H 29.8 H
O2 Delivery Level
Microbiology
03/05/25 17:11 Abdomen Wound Culture - Preliminary
03/05/25 17:11 Abdomen Gram Stain - Preliminary
03/06/25 10:50 Abdomen Wound Culture - Preliminary
03/06/25 10:50 Abdomen Gram Stain - Preliminary
03/05/25 11:35 Blood/Venous Blood Culture - Preliminary
No Growth in 48 hours- Final report to follow
03/01/25 19:46 Blood/Venous Blood Culture - Final
No Growth - Final Report
[2025-03-07 15:41] LABS: Glucose - Point of Care 162 mg/dl (70-99)
[2025-03-07 15:42] VITALS: BP 115/49
[2025-03-07] MEDS: STERILE WATER FOR INJECTION 10 ML IV ×2 (15:56→21:13)
[2025-03-07] MEDS: MERREM 500 MG IV ×2 (15:56→21:13)
[2025-03-07] MEDS: OFIRMEV 100 IV (15:59)
[2025-03-07 16:45] LABS: Glucose - Point of Care 187 mg/dl (70-99)
--- NOTE | 2025-03-07 16:51 | PTCARENOTE ---
Updated vs, temperature trends and drip trends with instructor dramatic arts team. Update infectious disease team. Continue antibiotics as per I/D. Continue follow up input output trend. Glycemic protocol in use following orders. Updates and supportive cares
with patient and family thru shift. Tpn follow up review and follow up caloric changes, glycemic protocol concerns with pharmacy. New TPN to start at 2100. Teaching ongoing.
[2025-03-07 17:49] LABS: Glucose - Point of Care 180 mg/dl (70-99)
[2025-03-07 18:49] LABS: Glucose - Point of Care 155 mg/dl (70-99)
[2025-03-07] MEDS: Parenteral Nutrition, Central 1190 IV (19:54)
[2025-03-07 21:13] LABS: Glucose - Point of Care 173 mg/dl (70-99)
--- NOTE | 2025-03-07 22:38 | PTCARENOTE ---
pt SBP 110-120s and DBP 30-40s on arterial line, levo currently off, ICU [employer] made aware, goal changed from MAP >65 to SBP >90. levo remains off at this time
[2025-03-07 23:08] LABS: Glucose - Point of Care 169 mg/dl (70-99)
[2025-03-08] VITALS (7 sets, daily range): BP systolic 110–202; BP diastolic 48–68; PULSE 2–98; BMI 39.1
[2025-03-08] MEDS: SUBLIMAZE 50 MCG IV ×2 (00:25→09:08)
[2025-03-08 01:27] LABS: Glucose - Point of Care 162 mg/dl (70-99)
[2025-03-08] MEDS: SUBLIMAZE 100 IV (02:34)
[2025-03-08] MEDS: HEPARIN 25000 UNITS/250 ML IV ×2 (03:13→17:26)
[2025-03-08] MEDS: STERILE WATER FOR INJECTION 10 ML IV ×4 (03:16→22:19)
[2025-03-08] MEDS: DIPRIVAN 100 IV (03:16)
[2025-03-08] MEDS: MERREM 500 MG IV ×4 (03:16→22:19)
[2025-03-08 03:21] LABS: Glucose - Point of Care 165 mg/dl (70-99)
[2025-03-08 03:30] LABS: B.E. 5.6 mmol/L; HCO3 30.5 mmol/L (21-28); O2 Saturation % 99.4 % (94-98); PCO2 46 mmHg (35-48); PO2 123 mmHg (83-108)
[2025-03-08 03:32] LABS: Hematocrit 24.9 % (39.0-52.0); Hemoglobin 8.2 g/dL (13.0-18.0); Mean Corp Hgb Conc. 32.9 g/dL (33.0-37.0); Mean Corpuscular Volume 91.9 fL (80.0-94.0); Platelet Count 281 10^3/uL (130-400); Red Cell Dist. Width 15.4 % (11.5-14.5)
[2025-03-08 03:43] LABS: APTT 76.9 Sec (23.4-35.0)
[2025-03-08 04:28] LABS: Blood Urea Nitrogen 50 mg/dl (9-20); Calcium 7.9 mg/dl (8.4-10.2); Carbon Dioxide 30 mmol/L (22-30); Chloride 111 mmol/L (98-107); Estimated Creatinine Clearance 61 ml/min; Glucose 140 mg/dl (70-99); Magnesium 2.1 mg/dl (1.6-2.3); Potassium 3.8 mmol/L (3.5-5.1); Sodium 143 mmol/L (135-145); Triglycerides 97 mg/dl (10-149); eGFR > 60.00
[2025-03-08 05:17] LABS: Glucose - Point of Care 165 mg/dl (70-99)
[2025-03-08 07:00] LABS: Glucose - Point of Care 149 mg/dl (70-99)
--- NOTE | 2025-03-08 07:49 | W.PN.INTV ---
Today's Communication / Plan
Recommendations
-Extubate today to BiPAP
-Continue to monitor BP, HR, O2 sat, ABG
-One dose 5 mg metoprolol today
-Replete KCl 20 meq today
-Continue IV heparin
-Touch base with cards re: restart standing metoprolol and/or amiodarone for afib
-Continue 40 mg IV Lasix bid > consider increasing to tid later today
-Continue meropenem and vancomycin
-Consider repeat CT abdomen tomorrow
-Continue insulin drip
-Continue TPN; trickle feeding with Dobbhoff; insulin infusion 1.7U/hr along with sliding scale aspart; may wean TPN post-extubation
Assessment
-
Pt is a 74-year-old male with a pmh notable for afib (on eliquis), HFpEF, HTN, and diverticulitis who p/w L-sided abdominal pain, vomiting, & chills in the s/o recent ex lap for perforated diverticulitis & formation of end colostomy, followed by
colostomy reversal on 02/21/25. Found on CT a/p to have postoperative leak at the left colonic anastomosis site with extraluminal contrast, with a large degree of pneumoperitoneum (02/27). Gen surg performed exlap w colon resection and creation of an
end colostomy (02/27). Patient remained intubated and was transferred to the ICU postoperatively. [employer] services consulted for additional management/recommendations. Plan/course as below.
Overview of ICU course: Patient was intubated for 1 day then extubated to BiPAP. However, patient was unable to be successfully weaned from BiPAP, experiencing episodes of hypercapnia when trialing off. Thought to be combination of
atelectasis/poor inspiratory ability in setting of ongoing sepsis/intraabdominal infection, as well as cardiopulmonary volume overload, with component of symptomatic A-fib with RVR. Given inability to wean from BiPAP, patient was reintubated on
03/04. CT scan on 03/05 demonstrated multiple intra-abdominal abscesses; IR guided drainage yielded purulent fluid from 2 areas. Patient with [address].
#Intra-abdominal abscesses
#Transient bacteremia in setting of colonic anastomotic leak
#Septic shock, resolved
Patient blood culture 03/01 positive for GPC bacilli. Repeat blood cultures without growth. Patient s/p Zosyn (02/27-03/07). Had been afebrile with WBCs trending down through 03/04. 03/05 CT scan demonstrated intra-abdominal abscesses ('left upper
quadrant and right upper quadrant of the abdomen, and smaller probable developing abscesses in the upper abdomen inferior to the distal stomach and in the anterior pelvis deep to the anterior pelvic wall'). On 03/05 & 03/06, IR drained purulent fluid
from left upper quadrant and right perihepatic space. Patient spiked fever to 100.6 on 03/07 afternoon.
Today: Afebrile. WBC: 26> 25.8> 20.3. Off pressors (Levophed stopped this a.m.).
- Continue meropenem 500mg IV q6h (03/07�)
- Continue vancomycin IV (03/06�)
- Pending body fluid cultures
- Continue to monitor output from abdominal SUSAN drains
- Consider CT a/p tomorrow to eval fluid collections
- ID following, appreciate recs
- Surgery following, appreciate recs
#Acute hypoxic, hypercapnic respiratory failure
Patient was intubated 03/04 given inability to wean off of BiPAP. Failed assisted ventilation trial ASV on 03/07. CXR (03/08): Similar in appearance to CXR from 03/07 ('Low lung volumes. Small to moderate bilateral pleural effusions with adjacent
atelectasis/consolidation. Slightly improved as compared with previous exam'). ABG (03/08 early am): 7.43 pH, bicarb 30.5, pCO2 46.
Today: Patient in process of SAT. No fentanyl, propofol. Awake, moving extremities, with cough. RN initiating SBT protocol this am. Respiratory rate 19, O2 sat 100. Minimal secretions.
- Recheck ABG prior to extubation
- Plan to extubate today to bipap
- If failed, revert to volume assist-control and retrial SBT/SAT tomorrow
#HTN
Pt with hx of HTN. On lasix & metoprolol at home.
Today: BP 180s/60s (MAP 90). S/p levo (stopped this am).
- Give 5mg metoprolol now
- Continue to monitor BP & assess HR for bradycardia
#HFpEF (EF 40-45%)
#Bilateral pleural effusions
Patient with pleural effusions, likely secondary to combination of hypoalbuminemia and congestive heart failure.
Today: Patient with some edema in bilateral feet; CXR looks similar to yesterday's; fluid balance +1021 mL; weight 109.8 kg (lowest this admission 102 kg); Cr 1.2
- Continue IV Lasix 40 mg twice daily
- Following extubation - consider increase to 40mg IV tid later today
- Daily weights, daily I's and O's
- Cards following, appreciate recs
#A-fib with RVR
Patient initially with rates in the 140�150s. HR has trended down to the 110�120s. Status post amiodarone and metoprolol. These were stopped on 03/04 in the setting of severe bradycardia with pauses.
Today: HR 123. Irregularly irregular. K 3.8, Mg 2.1
- Continue to monitor HR on telemetry
- Avoid Precedex
- Maintain K>4, Mg>2
- Replete 20meq KCl today
- Continue heparin drip
- Cards following, appreciate recs
- To discuss adding back standing metoprolol or amio s/p extubation
#Chronic
- HLD - holding home simvastatin
#Global
- DVT PPx: Heparin gtt
- GI PPx: Famotidine 20 mg IV daily
- Diet: TPN; trickle feeding with Dobbhoff; insulin infusion 1.7U/hr along with sliding scale aspart; may wean TPN post-extubation
- Code: Full
- Dispo: Continue ICU level care today
Subjective Dataa
Subjective Data
Date of Service:
Date of Service: March 08, 2025
Chief Complaint: [employer] Follow Up
Subjective:
Patient intubated, awake. RN at bedside doing vent care. Patient opening eyes, moving extremities, nodding head. Undergoing SAT.
Review of Systems
General: Unobtainable - Pat Unresp
Objective Data
Data Reviewed
Vital Signs / I&O / Oxygen:
Vital Signs
Temp Pulse Resp BP Pulse Ox
98.4 F 89 18 110/48 100
03/08/25 03:15 03/08/25 06:00 03/08/25 06:00 03/08/25 05:45 03/08/25 06:00
Intake and Output
03/07/25 03/08/25 03/09/25
06:59 06:59 06:59
Intake Total 2889.3 / 3030.6 3171.80 / 3171.80
Output Total 2155 / 2155 2575 / 2575
Balance 734.3 / 875.6 596.80 / 596.80
SaO2 [ASV] 99
SaO2 [CPAP/PSV] 99
SaO2 [A/C] 100
SaO2 100
Nasal Cannula flow liters per 2
minute
Physical Exam
General: Respiratory Distress (None; intubated; undergoing SBT at time of exam) and Fever (None)
HEENT: Normocephalic, Anicteric and Other (ETT in place)
Cardiovascular: Irregular Rhythm (Irregularly irregular), Peripheral Edema (Moderate pitting edema in bilateral feet, left greater than right) and Cool Extremities (Negative)
Respiratory: Crackles (Bibasilar), Non-Labored Respirations, Accessory Resp Muscle Use (None) and ET Tube (SBT in progress at time of exam)
GI: Soft, Non Distended, Other (Colostomy bag with soft brown stool) and Other (2 SUSAN drains on right and left sides of colostomy; both with minimal amount purulent drainage)
Neurology: Awake
Skin: Warm, Dry and Good Color
Labs/Micro/Reports
Lab Data
03/08/25 03:22
03/08/25 03:22
Laboratory Results
03/07/25 03/08/25
09:38 03:22
APTT 76.9 H
pH 7.35 7.43
pCO2 54 H 46
pO2 112 H 123 H
HCO3 29.8 H 30.5 H
O2 Delivery Level
Microbiology
03/05/25 17:11 Abdomen Wound Culture - Preliminary
03/05/25 17:11 Abdomen Gram Stain - Preliminary
03/06/25 10:50 Abdomen Wound Culture - Preliminary
03/06/25 10:50 Abdomen Gram Stain - Preliminary
03/05/25 11:35 Blood/Venous Blood Culture - Preliminary
No Growth in 48 hours- Final report to follow
03/01/25 19:46 Blood/Venous Blood Culture - Final
No Growth - Final Report
--- NOTE | 2025-03-08 07:57 | W.PN.CD ---
Today's Communication / Plan
-
continue IV heparin
continue IV lasix
trend Hgb and Cr
Impression / Plan
-
74-year-old man with (suspected permanent) atrial fibrillation (on Eliquis), HFmrEF (last echo reportedly 45% EF), htn, h/o PE/DVT, BPH, GERD, h/o perforated diverticulitis and previous end colostomy with reversal who presented to [facility] ED after
discharge on 02/25 following elective colostomy reversal for repeated perforated diverticulitis in 11/2024, found to have anastomotic leak CT imaging with pneumoperitoneum (02/27) requiring ex lap with bowel resection and end colostomy creation. He
remains in ICU in persistent Afib with RVR.
Acute hypoxic respiratory failure
- Severe, threat to life. Ventilator dependent.
- Reintubated 03/04/2025 for poor mental status on BiPAP
- Continue IV Lasix 40 mg BID
- Ventilator management per ICU team: weaning vent
- Avoid further Precedex due to bradycardia with long pauses
Shock
-improving, pressors off 03/07
- Likely septic with CT A/P on 03/05 showing multiple intra-abdominal abscesses, now s/p IR drain to yuliet-hepatic abscess 03/06
- Continue antibiotics
Severe bradycardia with pauses
- Occurred on 03/04/2025 in the setting of Precedex, IV amiodarone, and beta-rey. All have since been stopped.
- No recurrence on telemetry
- Continue to monitor. Avoid further Precedex.
Suspected permanent Afib, now with RVR
- Home dose Lopressor is 50mg AM and 25mg PM -- baseline rate uncertain per pt history. We have no records to confirm
- Elevated rates secondary to acute medical illness.
- As above, he had severe bradycardia with long pauses in the setting of Precedex, IV amiodarone, and beta-rey
- Heart rates now decently controlled: avg approx 100
- Continue heparin drip for AC, with monitoring of Hgb
HFrEF: chronic
- Preop eval: Echo LVEF 40-45% and only mild valve disease but date of echo unclear, perhaps 07/2023.
- Cath: No obstructive CAD but date of cath uncertain, perhaps 08/2023.
- Echocardiogram 03/03/2025 with LVEF of 65%; RV appeared dilated with low normal systolic function.
- Continue Lasix 40 mg IV BID.
- Will try to optimize with GDMT as hospitalization progresses (critically ill at this time).
Postoperative anastomotic leak status post exploratory laparotomy, colon resection and creation of end colostomy:
- Management as per Surgical team; on antibiotics.
CCT 31 min
Physical Exam
Vital Signs/Labs
Vital Signs
Temp Pulse Resp BP Pulse Ox
98.4 F 89 18 110/48 100
03/08/25 03:15 03/08/25 06:00 03/08/25 06:00 03/08/25 05:45 03/08/25 06:00
03/07/25 03/08/25 03/09/25
06:59 06:59 06:59
Actual Weight 108.9 kg 109.8 kg
03/08/25 03:22
03/08/25 03:22
PT 19.9 Sec (11.4-14.6) H 02/27/25 16:52
INR 1.67 02/27/25 16:52
APTT 76.9 Sec (23.4-35.0) H 03/08/25 03:22
Magnesium 2.1 mg/dl (1.6-2.3) 03/08/25 03:22
Triglycerides 97 mg/dl (10-149) 03/08/25 03:22
03/02/25 03/04/25 03/05/25
03:45 04:09 04:54
Nyk-E-Cysxfrrjtuo Pept [id number] 1980
03/07/25
03:14
Fuy-C-Rwqrujvyvcv Pept 482
Physical Exam
Constitutional: Other (intubated but awake)
EENT: Moist mucous membranes
Cardiovascular: Systolic murmur absent, Rhythm/rate is irregular, Pedal edema present and JVD present
Respiratory: Labored respirations
Neuro/Psych: Other (awake)
Data Reviewed
-
Date of Service: March 08, 2025
EKG: Other (Tele: A fib, avg HR ~100)
Labs: Labs Reviewed by me
Critical Care Time (in minutes): 31
[2025-03-08] MEDS: NSS (PRESERVATIVE FREE) 8 ML IV (08:10)
[2025-03-08] MEDS: PEPCID 20 MG IV (08:11)
[2025-03-08] MEDS: LASIX 40 MG IV ×2 (08:12→20:09)
[2025-03-08] MEDS: DESENEX/MITRAZOL/ZEASORB 1 APPLIC TOPICAL ×2 (08:14→20:10)
--- NOTE | 2025-03-08 08:27 | PHA.VAN.FU ---
Vancomycin Assessment / Plan
- Assessment
Renal Function: SCR Increasing
WBC's are: Trending Down
In the past 24 hrs, patient has been: Febrile
Concomitant Antimicrobials: MEROPENEM
- Assessment - Therapeutic Drug Monitoring
Random Level: 13.2 DRAWN ~19 HRS AFTER PREVIOUS DOSE VANCO 1250MG
- Dosing Plan
Dosing by Level: Re-dose today (VANCO 1250MG X1)
- Monitoring Plan
Random Level: RANDOM 03/09 @0600
- Follow Up
Pharmacy will continue to follow.
Vancomycin Follow UP
- -
Patient Age: 74
Patient Sex: Male
Vancomycin Day #: 5
Indication: Bacteremia
Requesting Provider: Lalo
Pertinent Antimicrobial Allergies:
NKDA
Height / Weight:
Height 5 ft 6 in
Actual Weight 109.8 kg
Pertinent Past Medical History: Colostomy closure 02/19/25 - pain near stoma
- Vital Signs / Lab Results
Temp Pulse Resp BP Pulse Ox
98.3 F 89 18 110/48 100
03/08/25 08:27 03/08/25 06:00 03/08/25 06:00 03/08/25 05:45 03/08/25 06:00
Lab Results - Hematology
03/06/25 03/07/25 03/08/25
03:52 03:14 03:22
WBC 26.0 H 25.8 H 20.3 H
Lab Results - Chemistry
03/05/25 03/06/25 03/07/25
21:06 03:52 03:14
BUN 63 H 62 H 51 H
Creatinine 1.1 1.1 1.1
Estimated Creat Clear 66 66 66
Albumin 1.9 L
03/08/25
03:22
BUN 50 H
Creatinine 1.2
Estimated Creat Clear 61
Albumin
Microbiology Results
03/05/25 17:11 Wound Culture - Preliminary
Abdomen Gram Stain - Preliminary
03/06/25 10:50 Wound Culture - Preliminary
Abdomen Gram Stain - Preliminary
03/05/25 11:35 Blood Culture - Preliminary
Blood/Venous No Growth in 48 hours- Final report to follow
03/01/25 19:46 Blood Culture - Final
Blood/Venous No Growth - Final Report
Therapeutic Drug Monitoring
Random Vancomycin 13.2 ug/ml 03/08/25 03:22
[2025-03-08] MEDS: VANCOCIN 275 MG IV (08:32)
--- NOTE | 2025-03-08 08:45 | PTCARENOTE ---
Assumed care of pt. SAT began at 0740 and SBT at 0745. Assessment as noted. Afib continues 120s, HTN noted at this time, +1 anasarca. Intubated 03/03 at lip, Spont 8 with RR 21, SpO2 98%. Tube feeding via R dobhoff on hold. Ostomy with mod amt
brown soft stool present. Hartman draining clear yellow urine. ABD dressing pulled back by surgery with mod amount purulent drainage present. SUSAN X2 with purulent drainage as well. Prop and fentanyl on hold, insulin, TPN, and heparin gtts continue.
[2025-03-08] MEDS: NOVOLOG FLEXPEN SC ×3 (09:06→16:27)
[2025-03-08 09:10] LABS: Glucose - Point of Care 158 mg/dl (70-99)
--- NOTE | 2025-03-08 09:11 | W.PN.ID1 ---
Date of Service
Date of Service: March 08, 2025
Today's Communication
Continue antibiotics
Assessment / Plan
Anastomotic leak / perforated viscus
Leukocytosis
VDRF
Bacteremia
- suspect possible contamination
Recommendations:
- SUSAN cultures with GNR's x2 and suspected strep spp.
- Repeat blood cultures (03/05) - NGTD
Continue meropenem (d#2), Vancomycin (d#5)
Follow WBC and temp curve
Follow drain output.
Follow cultures and adjust abx as needed
Continue with supportive measures
Patient remains critically ill in intensive care unit on vent.
����������������������������������������������������������
Chief Complaint
-: Leukocytosis and Other (Intra-abdominal abscesses)
Subjective / Review of Systems
Patient seen and examined. Remains on vent at this time. Temperature to 100.6 noted overnight. Currently weaning in progress.
Vital Signs / Physical Exam
Vital Signs
Vital Signs
Temp Pulse Resp BP Pulse Ox
98.3 F 89 18 110/48 100
03/08/25 08:27 03/08/25 06:00 03/08/25 06:00 03/08/25 05:45 03/08/25 06:00
Physical Exam
Constitutional: Acutely Ill and Non-toxic
Head: Other (ET tube in place)
Eyes: No Conjunctival Hemorrhage and Sclera Anicteric
Cardiovascular: Regular Rate (tachy. ) and S1/S2; Negative S3/S4
Pulmonary: Negative Wheezes or Rales
Gastrointestinal: Soft, Distended, Decreased Bowel Sounds and Other (SUSAN x 2 with Purulent output. Ostomy in place)
Extremities: Edema
Neurological: Awake
Psychological: Calm
Objective Data
Lab Data
Lab Results
03/08/25 03:22
03/08/25 03:22
PT 19.9 Sec (11.4-14.6) H 02/27/25 16:52
INR 1.67 02/27/25 16:52
APTT 76.9 Sec (23.4-35.0) H 03/08/25 03:22
Estimated Creat Clear 61 ml/min 03/08/25 03:22
Lactic Acid 1.5 mmol/L (0.7-2.0) 03/01/25 03:18
Total Bilirubin 0.6 mg/dl (0.2-1.3) 03/07/25 03:14
AST 23 U/L (17-59) 03/07/25 03:14
ALT 16 U/L (0-50) 03/07/25 03:14
Alkaline Phosphatase 188 U/L (38-126) H 03/07/25 03:14
Most recent labs reviewed.
Micro Results:
03/05/25 17:11 Wound Culture - Preliminary
Abdomen Gram Stain - Preliminary
03/06/25 10:50 Wound Culture - Preliminary
Abdomen Gram Stain - Preliminary
03/05/25 11:35 Blood Culture - Preliminary
Blood/Venous No Growth in 48 hours- Final report to follow
03/01/25 19:46 Blood Culture - Final
Blood/Venous No Growth - Final Report
03/05/25 17:11 Anaerobic Culture - Pending
Abdomen
03/01/25 20:44 Blood Culture - Preliminary
Blood/Venous Bacillus species,not anthracis
Gram Stain - Preliminary
Imaging:
03/05/2025: CT Chest/abd/pel W Iv Contrast: Postoperative abdomen with developing intra-abdominal abscesses in the left upper quadrant and right upper quadrant of the abdomen, and smaller probable developing abscesses in the upper abdomen inferior
to the distal stomach and in the anterior pelvis deep to the anterior pelvic wall.
Small bilateral pleural effusions and bilateral lower lobe compressive atelectasis.
02/27/2025: CT Abd/pel W Iv And Oral Contrast: 1. Postoperative leak at the left colonic anastomosis, with extraluminal contrast. Large degree of pneumoperitoneum.2. Trace bilateral pleural effusions with associated probable atelectasis. Cannot rule
out superimposed left lower lobe pneumonia.
--- NOTE | 2025-03-08 09:47 | PN.DE.MGMTRT ---
Insulin Management
- -
03/08/2025: Diabetes Management Consult Follow up
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
colostomy reversal for repeated perforated diverticulitis in 11/2024, found to have anastomotic leak CT imaging with pneumoperitoneum (02/27) requiring ex lap with bowel resection and end colostomy creation on 02/27.
Pt is in ICU, was intubated on 03/04 due to inability to remain off continuous BiPAP and insufficient nutritional intake/unable to take PO meds.
Pt remains critically ill, just extubated - on Bipap, awake but unable to interview. Family at bedside at bedside, very supportive.
State Dad was pre-diabetic and not taking any diabetes medications. A1C 6.2%, Cr 1.1, eGFR >60
Tube feeds on hold, continues with TPN. Has required 1.7 to 3 units of insulin per hour. Will continue glycemic protocol.
Discussed with nurse.
Will cont to follow.
Diabetes History
- -
Pre-Admission Diabetes Regimen
03/08/25
03:22
Creatinine 1.2
Lab Results
Hemoglobin A1c 6.2 % (4.0-5.6) H 02/28/25 02:57
Insulin Pump Settings
IP Diabetes Regimen
03/07/25 03/07/25 03/07/25
11:44 13:43 14:45
Glucose
POC Glucose 236 H 233 H 182 H
03/07/25 03/07/25 03/07/25
15:40 16:42 17:37
Glucose
POC Glucose 162 H 187 H 180 H
03/07/25 03/07/25 03/07/25
18:37 21:01 22:57
Glucose
POC Glucose 155 H 173 H 169 H
03/08/25 03/08/25 03/08/25
01:15 03:09 03:22
Glucose 140 H
POC Glucose 162 H 165 H
03/08/25 03/08/25 03/08/25
05:05 06:48 08:58
Glucose
POC Glucose 165 H 149 H 158 H
Patient Education
--- NOTE | 2025-03-08 09:49 | W.PN.GS2 ---
Today's Communication / Plan
-
Wean vent
IV abx
TPN
swallow study after extubation
Assessment / Plan
-
Patient is a 74 yo M POD 15 s/p reversal of end colostomy POD 9 s/p ex lap, colon resection, end colostomy creation for anastomotic leak,
Vent weaning in progress
Pressors off
UOP good, H/H stable
Hypophosphatemia resolved
Low grade temp, WBC trending down
Tolerating trickle tube feedings via dobhoff, lots of brown stool output in appliance
Cards following, appreciate recs
Anticipated ileus, resolving
IR LUQ drain placed on 03/05/25 RUQ drain placed 03/06/25 with purulent drainage from both. Cx prelim no orgs no wbc
Rpt BCx with bacillus
Plan:
-- Monitor drains and follow cx
-- Follow labs
-- Continue TPN, discussed dosing with pharmacist and adjusted fats taking into account propofol rate
-- Trickle feeds via dobhoff/will hold off on increasing rate until more outputs from stoma
-- Abx: per ID, recs appreciated
-- Wean vent
Discussed care with nursing
Subjective Data
-
Date of Service: March 08, 2025
Off pressors, low grade temp noted
Objective Data
-
Intake and Output
03/07/25 03/08/25 03/09/25
06:59 06:59 06:59
Intake Total 2889.3 / 3030.6 3171.80 / 3267.50 95.7 / 95.7
Output Total 2155 / 2155 2575 / 2575
Balance 734.3 / 875.6 596.80 / 692.50 95.7 / 95.7
Intake:
IV fluids (Total) 1088.3 / 1129.6 1015.80 / 1061.50 45.7 / 45.7
Fentanyl 335.0 / 350.0 345.0 / 360.0
Insulin (GP)100units/100ml Nss 41.1 / 42.8 1.7 / 1.7
Propofol 213.3 / 219.8 223.1 / 236.1
heparin 320 / 336 384 / 400 16 / 16
levophed gtt 220.0 / 223.8 22.60 / 22.60
IV piggybacks 250 / 250 100 / 100
TPN/PPN 911 / 976 1251 / 1301 50 / 50
Tube feeding 180 / 190 230 / 230
Feeding tube flush amount 450 / 475 575 / 575
Amount instilled into Drain (
Total)
Right Upper Abdomen Celso-
Loyd B Placed in IR
Output:
Liquid stool amount 100 / 100
Colostomy 100 / 100
Drain Output (Total) 130 / 130 /
Left Abdomen Celso-Loyd 5 / 5
Right Abdomen Celso-Loyd 5
Right Upper Abdomen Celso-
Loyd B Placed in IR
Upper Abdomen A 100 / 100
Urine, Hoffman 2024 / 2024 2450 / 2450
Vital Signs
Temp Pulse Resp BP Pulse Ox
98.3 F 118 19 110/48 95
03/08/25 08:27 03/08/25 09:00 03/08/25 09:00 03/08/25 05:45 03/08/25 09:40
Lab Results
03/08/25 03:22
03/08/25 03:22
Calcium 7.9 mg/dl (8.4-10.2) L 03/08/25 03:22
Phosphorus 3.5 mg/dl (2.5-4.5) 03/07/25 03:14
Magnesium 2.1 mg/dl (1.6-2.3) 03/08/25 03:22
Total Bilirubin 0.6 mg/dl (0.2-1.3) 03/07/25 03:14
Direct Bilirubin 1.9 mg/dl (0.0-0.4) H 03/02/25 03:45
AST 23 U/L (17-59) 03/07/25 03:14
ALT 16 U/L (0-50) 03/07/25 03:14
Alkaline Phosphatase 188 U/L (38-126) H 03/07/25 03:14
Total Protein 4.7 g/dl (6.3-8.2) L 03/07/25 03:14
Albumin 1.9 g/dl (3.5-5.0) L 03/07/25 03:14
Physical Exam
-
Gen:Intubated, sedatation window - awake and alert
Abd: purulence in midline wound, more sarah removed, fascia intact, drains seropurulent, lots of soft brown stool in appliance
Patient has a hoffman catheter: Yes
Patient has a central line: Yes
[2025-03-08 10:05] LABS: B.E. 5.6 mmol/L; HCO3 31.1 mmol/L (21-28); O2 Saturation % 99.4 % (94-98); PCO2 49 mmHg (35-48); PO2 125 mmHg (83-108)
[2025-03-08] MEDS: LOPRESSOR 5 MG IV (10:36)
--- NOTE | 2025-03-08 10:44 | RESPNOTE ---
Respiratory: patient extubated at [address] Medrano. No incident, no stridor no wheezes. On Bilevel 15/5 tolerating well.
[2025-03-08] MEDS: KCL 50 IV (11:17)
[2025-03-08 11:18] LABS: Glucose - Point of Care 172 mg/dl (70-99)
--- NOTE | 2025-03-08 12:54 | PTCARENOTE ---
Extubated at 1030 to BiPAP. Pt to NC at 1230 as ordered by continuous improvement consultant. Lopressor 5mg given for HTN and rapid afib. Daughter at bedside, updated on plan of care.
[2025-03-08 13:17] LABS: Glucose - Point of Care 172 mg/dl (70-99)
[2025-03-08 14:39] LABS: B.E. 5.7 mmol/L; HCO3 31.6 mmol/L (21-28); O2 Saturation % 99.7 % (94-98); PCO2 51 mmHg (35-48); PO2 131 mmHg (83-108)
--- NOTE | 2025-03-08 14:40 | PTOTSP ---
Speech Therapy Assessment
Swallowing:
Patient with chronic risk factors for dysphagia including history of SDH and CHF coupled with more concerning acute risk factors including recent prolonged (greater than 2 days) intubation, signs of laryngeal dysfunction, immobility and frailty and
coughing with thin liquids
Recommend
1. Maintain NPO status with nonoral meds.
2. Allow ice chips sparingly with supervision per [facility]
3. Diligent oral care at least 4x/daily with suction toothbrush.
4. Aspiration precautions.
5. ST will reassess 03/09 and determine need for instrumental testing.
--- NOTE | 2025-03-08 15:21 | CM ---
Wean vent to extubate, IV/heparin/AB/Lasix, TPN, trickle feeds via Dobhoff, Insulin drip, repeat Abd CT on 03/09/25. Discharge POC: TBD. Await therapy evaluation and recommendations.
[2025-03-08 15:29] LABS: Glucose - Point of Care 178 mg/dl (70-99)
[2025-03-08] MEDS: NOVOLIN R INSULIN INFUSION 100 IV (17:27)
[2025-03-08 19:19] LABS: Glucose - Point of Care 207 mg/dl (70-99)
[2025-03-08] MEDS: LOPRESSOR 25 MG TUBE (20:09)
[2025-03-08 20:14] LABS: Glucose - Point of Care 202 mg/dl (70-99)
[2025-03-08] MEDS: Parenteral Nutrition, Central 1090 IV (20:22)
[2025-03-08 21:11] LABS: Glucose - Point of Care 187 mg/dl (70-99)
[2025-03-08 22:13] LABS: Glucose - Point of Care 163 mg/dl (70-99)
[2025-03-08 23:15] LABS: Glucose - Point of Care 154 mg/dl (70-99)
[2025-03-09] VITALS (8 sets, daily range): BP systolic 93–187; BP diastolic 34–72; PULSE 2–102; O2SAT 99; BMI 38.2
[2025-03-09 00:42] LABS: Glucose - Point of Care 136 mg/dl (70-99)
[2025-03-09 01:36] LABS: Glucose - Point of Care 135 mg/dl (70-99)
[2025-03-09 03:37] LABS: Glucose - Point of Care 137 mg/dl (70-99)
[2025-03-09 04:27] LABS: Hematocrit 29.2 % (39.0-52.0); Hemoglobin 9.4 g/dL (13.0-18.0); Mean Corp Hgb Conc. 32.2 g/dL (33.0-37.0); Mean Corpuscular Volume 91.5 fL (80.0-94.0); Platelet Count 382 10^3/uL (130-400); Red Cell Dist. Width 15.0 % (11.5-14.5)
[2025-03-09] MEDS: STERILE WATER FOR INJECTION 10 ML IV ×4 (04:30→20:45)
[2025-03-09] MEDS: MERREM 500 MG IV ×4 (04:30→20:45)
[2025-03-09 04:36] LABS: APTT 51.6 Sec (23.4-35.0)
[2025-03-09 04:53] LABS: Blood Urea Nitrogen 44 mg/dl (9-20); Calcium 8.5 mg/dl (8.4-10.2); Carbon Dioxide 32 mmol/L (22-30); Chloride 110 mmol/L (98-107); Estimated Creatinine Clearance 73 ml/min; Glucose 145 mg/dl (70-99); Magnesium 2.5 mg/dl (1.6-2.3); Potassium 4.0 mmol/L (3.5-5.1); Sodium 145 mmol/L (135-145); eGFR > 60.00
[2025-03-09 05:35] LABS: Glucose - Point of Care 139 mg/dl (70-99)
[2025-03-09] MEDS: HEPARIN 8800 UNITS IV (06:01)
[2025-03-09] MEDS: LASIX 40 MG IV ×2 (07:29→20:45)
[2025-03-09] MEDS: PEPCID 20 MG IV (07:29)
[2025-03-09] MEDS: LOPRESSOR 25 MG TUBE ×2 (07:29→08:04)
[2025-03-09] MEDS: DESENEX/MITRAZOL/ZEASORB 1 APPLIC TOPICAL ×2 (07:30→20:46)
[2025-03-09] MEDS: NSS (PRESERVATIVE FREE) 8 ML IV (07:30)
[2025-03-09] MEDS: NOVOLOG FLEXPEN SC ×3 (07:30→15:59)
[2025-03-09 07:38] LABS: Glucose - Point of Care 149 mg/dl (70-99)
--- NOTE | 2025-03-09 07:51 | W.PN.INTV ---
Today's Communication / Plan
Recommendations
- CXR & ABG this am
- Bipap-O2 NC, 2hr-4hr throughout day
- Continue lasix 40mg IV bid
- Amlodipine 10mg daily
- Metoprolol 50mg bid
- Continue vanc/meropenem
- CT a/p sometime this week
- Maintain K>4, Mg>2
- Heparin IV
- Continue TPN; dobhoff out today; advance puree diet after CXR; continue insulin infusion 3.5U/hr along with sliding scale aspart
Assessment
-
Pt is a 74-year-old male with a pmh notable for afib (on eliquis), HFpEF, HTN, and diverticulitis who p/w L-sided abdominal pain, vomiting, & chills in the s/o recent ex lap for perforated diverticulitis & formation of end colostomy, followed by
colostomy reversal on 02/21/25. Found on CT a/p to have postoperative leak at the left colonic anastomosis site with extraluminal contrast, with a large degree of pneumoperitoneum (02/27). Gen surg performed exlap w colon resection and creation of an
end colostomy (02/27). Patient remained intubated and was transferred to the ICU postoperatively. [facility] services consulted for additional management/recommendations. Plan/course as below.
Overview of ICU course: Patient was intubated for 1 day then extubated to BiPAP. However, patient was unable to be successfully weaned from BiPAP, experiencing episodes of hypercapnia when trialing off. Thought to be combination of
atelectasis/poor inspiratory ability in setting of ongoing sepsis/intraabdominal infection, as well as cardiopulmonary volume overload, with component of symptomatic A-fib with RVR. Given inability to wean from BiPAP, patient was reintubated on
03/04. CT scan on 03/05 demonstrated multiple intra-abdominal abscesses; IR guided drainage yielded purulent fluid from 2 areas. Patient with [address] Extubated on 03/08.
#Intra-abdominal abscesses
#Transient bacteremia in setting of colonic anastomotic leak
#Septic shock, resolved
Patient blood culture 03/01 positive for GPC bacilli. Repeat blood cultures without growth. Patient s/p Zosyn (02/27-03/07). Had been afebrile with WBCs trending down through 03/04. 03/05 CT scan demonstrated intra-abdominal abscesses ('left upper
quadrant and right upper quadrant of the abdomen, and smaller probable developing abscesses in the upper abdomen inferior to the distal stomach and in the anterior pelvis deep to the anterior pelvic wall'). On 03/05 & 03/06, IR drained purulent fluid
from left upper quadrant and right perihepatic space. Patient spiked fever to 100.6 on 03/07 afternoon. Off pressors on 03/08. Wound cx: e coli, second GNB, enterococcus sp.
Today: Afebrile. WBC: 26> 25.8> 20.3>13.4. 170ml from colostomy last 24hr. 20ml from L SUSAN drain, 75ml from R SUSAN drain last 24hr. Drains still w purulent fluid.
- Continue meropenem 500mg IV q6h (03/07�)
- Continue vancomycin IV (03/06�)
- Consider CT a/p this week
- Pending body fluid culture speciation/susceptibilities
- Continue to monitor output from abdominal SUSAN drains
- ID following, appreciate recs
- Surgery following, appreciate recs
#Acute hypoxic, hypercapnic respiratory failure
Patient was intubated 03/04 given inability to wean off of BiPAP. Failed assisted ventilation trial ASV on 03/07. CXR (03/08): Similar in appearance to CXR from 03/07 ('Low lung volumes. Small to moderate bilateral pleural effusions with adjacent
atelectasis/consolidation. Slightly improved as compared with previous exam'). ABG (03/08 early am): 7.43 pH, bicarb 30.5, pCO2 46. Extubated 03/08.
Today: Satting 95% on 2L O2 NC (1.5hr s/p bipap). Pt endorsing dyspnea. Tachypneic.
- Increase interval between bipap to 4hr off, 2hr on (O2 NC in between)
- CXR today
- Repeat ABG
- Bipap at night
- Incentive spirometry
#HTN
Pt with hx of HTN. On lasix & metoprolol at home. Restarted metoprolol 03/08.
Today: Pt required dose of hydralazine early am. BP at time of exam 155/55 (map 84).
- Metoprolol 50mg bid
- Per cards, start amlodipine 10mg daily
- Hydralazine 10gm q4h prn if systolic BP>170
- Continue to monitor BP & assess HR for bradycardia
#Shaking/tremors
Pt with shaking/tremors in bilateral UEs. Started 03/08 s/p extubation, improved, then worsened 03/08 am. Electrolytes wnl. Denied feeling chills. Improved within a few hours this am. Unclear etiology, in s/o critical illness, deconditioning, recent
extubation.
- Continue to monitor
#HFpEF (EF 40-45%)
#Bilateral pleural effusions
Patient with pleural effusions, likely secondary to combination of hypoalbuminemia and congestive heart failure. CXR 03/08 slightly improved vs. 03/07.
Today: fluid balance -2279mL; weight 109.8>107.2 kg (lowest this admission 102 kg); Cr 1.2>1.0
- Continue IV Lasix 40 mg bid
- Daily weights, daily I's and O's
- Cards following, appreciate recs
#A-fib with RVR
#Prior episodes of bradycardia w pauses
Patient initially with rates in the 140�150s. HR has trended down to the 110�120s. Status post amiodarone and metoprolol. These were stopped on 03/04 in the setting of severe bradycardia with pauses.
Today: HR 88. Irregularly irregular. K 4.0, Mg 2.5
- Continue to monitor HR on telemetry
- Metoprolol 50mg bid
- Holding on amiodarone for now given rate control acceptable w metop & risk of bea overshoot
- Maintain K>4, Mg>2
- Continue heparin drip
- Avoid Precedex
- Cards following, appreciate recs
#Chronic
- HLD - holding home simvastatin, mgmt per primary dteam
#Global
- DVT PPx: Heparin gtt
- GI PPx: Famotidine 20 mg IV daily
- Diet: TPN; dobhoff out today; advance puree diet after CXR; continue insulin infusion 3.5U/hr along with sliding scale aspart
- Code: Full
- Dispo: Continue ICU level care today
Subjective Dataa
Subjective Data
Date of Service:
Date of Service: March 09, 2025
Chief Complaint: [facility] Follow Up
Subjective:
Pt awake, alert. Speaking in [facility] endorses sore throat s/p extubation. States that his biggest concern rn is the shaking/tremors. Per daughter, they started post-extubation, improved yesterday, and this am they worsened. Having shaking tremors
in bilateral UE at rest. Pt also states that he feels short of breath on NC but also felt short of breath on bipap. Pt had been off bipap for 1.5hr at time of exam. Denies any pain in abdomen. Per RN, no overnight events other than HTN mgmt.
Review of Systems
General: Other (tremors)
HEENT: Oral/Throat Pain
Cardiopulmonary: Dyspnea
GI: Abdominal Pain (denies)
Genitourinary: Hartman
Objective Data
Data Reviewed
Vital Signs / I&O / Oxygen:
Vital Signs
Temp Pulse Resp BP Pulse Ox
97.7 F 95 28 187/72 99
03/09/25 07:41 03/09/25 07:03 03/09/25 07:03 03/09/25 07:03 03/09/25 07:03
Intake and Output
03/08/25 03/09/25 03/10/25
06:59 06:59 06:59
Intake Total 3171.80 / 3302.50 1955.8 / 2058.8 103 / 103
Output Total 2575 / 2575 4034 / 4159 /
Balance 596.80 / 727.50 -2077.2 / -2099.2 -92 / -92
SaO2 [ASV] 99
SaO2 [CPAP/PSV] 98
SaO2 [A/C] 100
SaO2 99
Nasal Cannula flow liters per 3
minute
Physical Exam
General: Respiratory Distress (pt appears to be breathing rapidly but without accessory muscle use ) and Other (visible tremors/shaking in bilateral UEs )
HEENT: Normocephalic, Anicteric and Other (O2 NC in place )
Cardiovascular: Irregular Rhythm (Irregularly irregular)
Respiratory: Crackles (Bibasilar), Accessory Resp Muscle Use (None) and Other (O2 NC )
GI: Soft (feels somewhat firm throughout but not hard ), Non Distended, Other (Colostomy bag with soft brown stool) and Other (2 SUSAN drains on right and left sides of colostomy; both with some purulent drainage)
Neurology: Awake
Skin: Warm, Dry and Good Color
Labs/Micro/Reports
Lab Data
03/09/25 04:11
03/09/25 04:11
Laboratory Results
03/08/25 03/08/25 03/09/25
09:55 14:29 04:11
APTT 51.6 H
pH 7.41 7.40
pCO2 49 H 51 H
pO2 125 H 131 H
HCO3 31.1 H 31.6 H
O2 Delivery Level
Microbiology
03/05/25 17:11 Abdomen Wound Culture - Preliminary
Escherichia coli
Gram negative bacilli
Enterococcus species
03/05/25 17:11 Abdomen Gram Stain - Preliminary
03/05/25 11:35 Blood/Venous Blood Culture - Preliminary
No Growth in 72 hours- Final report to follow
03/06/25 10:50 Abdomen Wound Culture - Preliminary
Escherichia coli
Gram negative bacilli
Enterococcus species
03/06/25 10:50 Abdomen Gram Stain - Preliminary
03/01/25 20:44 Blood/Venous Blood Culture - Final
Bacillus species,not anthracis
03/01/25 20:44 Blood/Venous Gram Stain - Final
03/01/25 19:46 Blood/Venous Blood Culture - Final
No Growth - Final Report
[2025-03-09] MEDS: VANCOCIN 530 MG IV (08:04)
--- NOTE | 2025-03-09 08:28 | W.PN.CD ---
Today's Communication / Plan
-
cont IV lasix
resume home amlodipine
continue metoprolol tartrate
continue IV heparin
Impression / Plan
-
74-year-old man with (suspected permanent) atrial fibrillation (on Eliquis), HFmrEF (last echo reportedly 45% EF), htn, h/o PE/DVT, BPH, GERD, h/o perforated diverticulitis and previous end colostomy with reversal who presented to [facility] ED after
discharge on 02/25 following elective colostomy reversal for repeated perforated diverticulitis in 11/2024, found to have anastomotic leak CT imaging with pneumoperitoneum (02/27) requiring ex lap with bowel resection and end colostomy creation. He
remains in ICU in persistent Afib with RVR.
Acute hypoxic respiratory failure
- extubated 03/08
Shock
-improved, pressors off 03/07
- Likely septic with CT A/P on 03/05 showing multiple intra-abdominal abscesses, now s/p IR drain to yuliet-hepatic abscess 03/06
- Continue antibiotics
Severe bradycardia with pauses
- Occurred on 03/04/2025 in the setting of Precedex, IV amiodarone, and beta-rey.
- No recurrence on telemetry
- now back on metoprolol tartrate 50mg bid (home med)
Suspected permanent Afib, now with RVR
- As above, he had severe bradycardia with long pauses in the setting of Precedex, IV amiodarone, and beta-rey
- Heart rates now decently controlled, on metoprolol tartrate 50mg bid: avg approx 100
- Continue heparin drip for AC, with monitoring of Hgb
HFrEF: acute
- Preop eval: Echo LVEF 40-45% and only mild valve disease but date of echo unclear, perhaps 07/2023.
- Cath: No obstructive CAD but date of cath uncertain, perhaps 08/2023.
- Echocardiogram 03/03/2025 with LVEF of 65%; RV appeared dilated with low normal systolic function.
- Continue Lasix 40 mg IV BID. close monitoring of labs tele
- Will try to optimize with GDMT as hospitalization progresses (critically ill at this time).
HTN
-resume home amlodipine
Postoperative anastomotic leak status post exploratory laparotomy, colon resection and creation of end colostomy:
- Management as per Surgical team; on antibiotics.
Physical Exam
Vital Signs/Labs
Vital Signs
Temp Pulse Resp BP Pulse Ox
97.7 F 95 28 187/72 99
03/09/25 07:41 03/09/25 07:03 03/09/25 07:03 03/09/25 07:03 03/09/25 07:03
03/08/25 03/09/25 03/10/25
06:59 06:59 06:59
Actual Weight 109.8 kg 107.2 kg
03/09/25 04:11
03/09/25 04:11
PT 19.9 Sec (11.4-14.6) H 02/27/25 16:52
INR 1.67 02/27/25 16:52
APTT 51.6 Sec (23.4-35.0) H 03/09/25 04:11
Magnesium 2.5 mg/dl (1.6-2.3) H 03/09/25 04:11
Triglycerides 97 mg/dl (10-149) 03/08/25 03:22
03/02/25 03/04/25 03/05/25
03:45 04:09 04:54
Fof-W-Ahqkobcgrao Pept 3370 [id number] 1980
03/07/25
03:14
Gry-F-Jydzyatlbav Pept 482
Physical Exam
Constitutional: No acute distress
EENT: Moist mucous membranes
Cardiovascular: Systolic murmur absent, Rhythm/rate is irregular, Pedal edema present and JVD present
Respiratory: Respiratory effort normal
Neuro/Psych: Alert
Data Reviewed
-
Date of Service: March 09, 2025
EKG: Other (Tele: A fib, avg HR ~100)
Labs: Labs Reviewed by me
[2025-03-09 08:45] LABS: Glucose - Point of Care 143 mg/dl (70-99)
[2025-03-09] MEDS: HEPARIN 25000 UNITS/250 ML IV ×2 (08:51→17:36)
[2025-03-09] MEDS: NORVASC 10 MG PO (08:51)
--- NOTE | 2025-03-09 08:58 | PN.DE.MGMTRT ---
Insulin Management
- -
03/09/2025: Diabetes Management Consult Follow up
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
colostomy reversal for repeated perforated diverticulitis in 11/2024, found to have anastomotic leak CT imaging with pneumoperitoneum (02/27) requiring ex lap with bowel resection and end colostomy creation on 02/27. Prior to admission was taking no
diabetes medications. A1C 6.2%, Cr 1.1, eGFR >60.
Pt remains critically ill, extubated yesterday, required BiPap @ night, O2 NC - awake but unable to interview. Family at bedside, very supportive.
Tube feeds @ trickle rate, continues with TPN. Has required 1.5 to 4 units of insulin per hour. Will continue glycemic protocol.
Discussed with nurse.
Will cont to follow.
Diabetes History
- -
Pre-Admission Diabetes Regimen
03/09/25
04:11
Creatinine 1.0
Lab Results
Hemoglobin A1c 6.2 % (4.0-5.6) H 02/28/25 02:57
Insulin Pump Settings
IP Diabetes Regimen
03/08/25 03/08/25 03/08/25
08:58 11:07 13:06
Glucose
POC Glucose 158 H 172 H 172 H
03/08/25 03/08/25 03/08/25
15:18 17:20 19:05
Glucose
POC Glucose 178 H 143 H 207 H
03/08/25 03/08/25 03/08/25
20:02 21:00 22:01
Glucose
POC Glucose 202 H 187 H 163 H
03/08/25 03/09/25 03/09/25
23:02 00:40 01:35
Glucose
POC Glucose 154 H 136 H 135 H
03/09/25 03/09/25 03/09/25
03:35 04:11 05:34
Glucose 145 H
POC Glucose 137 H 139 H
03/09/25
07:27
Glucose
POC Glucose 149 H
Patient Education
--- NOTE | 2025-03-09 09:11 | PHA.VAN.FU ---
Vancomycin Assessment / Plan
- Assessment
Renal Function: SCR Decreasing
WBC's are: Trending Down
In the past 24 hrs, patient has been: Afebrile
Concomitant Antimicrobials: MEROPENEM
- Assessment - Therapeutic Drug Monitoring
Random Level: 11.7 DRAWN ~20 HR AFTER PREVIOUS DOSE VANCO 1250MG
- Dosing Plan
Dosing by Level: Re-dose today (VANCO 1500MG)
- Monitoring Plan
Random Level: 10 @0600
- Follow Up
Pharmacy will continue to follow.
Vancomycin Follow UP
- -
Patient Age: 74
Patient Sex: Male
Vancomycin Day #: 6
Indication: Bacteremia
Requesting Provider: Lalo
Pertinent Antimicrobial Allergies:
NKDA
Height / Weight:
Height 5 ft 6 in
Actual Weight 107.2 kg
Pertinent Past Medical History: Colostomy closure 02/19/25 - pain near stoma
- Vital Signs / Lab Results
Temp Pulse Resp BP Pulse Ox
97.7 F 95 28 187/72 99
03/09/25 07:41 03/09/25 07:03 03/09/25 07:03 03/09/25 07:03 03/09/25 07:03
Lab Results - Hematology
03/07/25 03/08/25 03/09/25
03:14 03:22 04:11
WBC 25.8 H 20.3 H 13.4 H
Lab Results - Chemistry
03/07/25 03/08/25 03/09/25
03:14 03:22 04:11
BUN 51 H 50 H 44 H
Creatinine 1.1 1.2 1.0
Estimated Creat Clear 66 61 73
Albumin 1.9 L
Microbiology Results
03/05/25 17:11 Wound Culture - Preliminary
Abdomen Escherichia coli
Gram negative bacilli
Enterococcus species
Gram Stain - Preliminary
03/05/25 11:35 Blood Culture - Preliminary
Blood/Venous No Growth in 72 hours- Final report to follow
03/06/25 10:50 Wound Culture - Preliminary
Abdomen Escherichia coli
Gram negative bacilli
Enterococcus species
Gram Stain - Preliminary
03/01/25 20:44 Blood Culture - Final
Blood/Venous Bacillus species,not anthracis
Gram Stain - Final
Therapeutic Drug Monitoring
Random Vancomycin 11.7 ug/ml 03/09/25 04:11
--- NOTE | 2025-03-09 09:21 | PTCARENOTE ---
Assumed care of pt. HTN 200s/80s noted. Pt without complaints of pain. Scheduled lopressor administered and electrical line splicer notified. Lopressor dose increased and PRN hydralizine IV administered with appropriate results. Assessment as noted. Surgery to
bedside. Dobhoff ordered out. ST reevaluated swallow and pureed/mod thick ordered. Daughter at bedside. plan of care discussed.
--- NOTE | 2025-03-09 09:31 | W.PN.ID1 ---
Date of Service
Date of Service: March 09, 2025
Today's Communication
Continue antibiotics. Await full sensitivities of recovered isolates.
Assessment / Plan
Anastomotic leak / perforated viscus
Abdominal abscesses; s/p drainage
- Cultures with E. coli, additional GNR, Enterococcus�full sensitivities pending.
Leukocytosis
- Improving
VDRF
Bacteremia
- suspect possible contamination
Recommendations:
- SUSAN cultures with GNR's x2 and suspected strep spp.
- Repeat blood cultures (03/05) - NGTD
Continue meropenem (d#3), Vancomycin (d#6)
Follow WBC and temp curve
Follow drain output.
Follow cultures and adjust abx as needed
Continue with supportive measures
����������������������������������������������������������
Chief Complaint
-: Leukocytosis and Other (Intra-abdominal abscesses)
Subjective / Review of Systems
Patient seen and examined. Since yesterday, patient has been extubated. Reports feeling improved.
Review of Systems: No Fever and No Chills
Vital Signs / Physical Exam
Vital Signs
Vital Signs
Temp Pulse Resp BP Pulse Ox
97.7 F 95 28 187/72 96
03/09/25 07:41 03/09/25 07:03 03/09/25 07:03 03/09/25 07:03 03/09/25 08:00
Physical Exam
Constitutional: No Acute Distress, Comfortable and Non-toxic
Head: Other (Nasal Dobbhoff in place.)
Eyes: No Conjunctival Hemorrhage and Sclera Anicteric
Cardiovascular: S1/S2; Negative S3/S4
Pulmonary: Negative Wheezes or Rales
Gastrointestinal: Soft, Distended, Decreased Bowel Sounds and Other (SUSAN x 2 with Purulent output. Ostomy in place)
Extremities: Edema
Skin: Warm and Dry; Negative Rash
Neurological: Awake
Psychological: Calm
Objective Data
Lab Data
Lab Results
03/09/25 04:11
03/09/25 04:11
PT 19.9 Sec (11.4-14.6) H 02/27/25 16:52
INR 1.67 02/27/25 16:52
APTT 51.6 Sec (23.4-35.0) H 03/09/25 04:11
Estimated Creat Clear 73 ml/min 03/09/25 04:11
Lactic Acid 1.5 mmol/L (0.7-2.0) 03/01/25 03:18
Total Bilirubin 0.6 mg/dl (0.2-1.3) 03/07/25 03:14
AST 23 U/L (17-59) 03/07/25 03:14
ALT 16 U/L (0-50) 03/07/25 03:14
Alkaline Phosphatase 188 U/L (38-126) H 03/07/25 03:14
Most recent labs reviewed.
Micro Results:
03/05/25 17:11 Wound Culture - Preliminary
Abdomen Escherichia coli
Gram negative bacilli
Enterococcus species
Gram Stain - Preliminary
03/05/25 11:35 Blood Culture - Preliminary
Blood/Venous No Growth in 72 hours- Final report to follow
03/06/25 10:50 Wound Culture - Preliminary
Abdomen Escherichia coli
Gram negative bacilli
Enterococcus species
Gram Stain - Preliminary
03/01/25 20:44 Blood Culture - Final
Blood/Venous Bacillus species,not anthracis
Gram Stain - Final
03/01/25 19:46 Blood Culture - Final
Blood/Venous No Growth - Final Report
03/05/25 17:11 Anaerobic Culture - Pending
Abdomen
Imaging:
03/05/2025: CT Chest/abd/pel W Iv Contrast: Postoperative abdomen with developing intra-abdominal abscesses in the left upper quadrant and right upper quadrant of the abdomen, and smaller probable developing abscesses in the upper abdomen inferior
to the distal stomach and in the anterior pelvis deep to the anterior pelvic wall.
Small bilateral pleural effusions and bilateral lower lobe compressive atelectasis.
02/27/2025: CT Abd/pel W Iv And Oral Contrast: 1. Postoperative leak at the left colonic anastomosis, with extraluminal contrast. Large degree of pneumoperitoneum.2. Trace bilateral pleural effusions with associated probable atelectasis. Cannot rule
out superimposed left lower lobe pneumonia.
[2025-03-09 09:36] LABS: Glucose - Point of Care 156 mg/dl (70-99)
[2025-03-09 11:05] LABS: B.E. 7.7 mmol/L; HCO3 32.0 mmol/L (21-28); O2 Saturation % 98.7 % (94-98); PCO2 43 mmHg (35-48); PO2 89 mmHg (83-108)
[2025-03-09] MEDS: OFIRMEV 100 IV (11:30)
[2025-03-09 11:35] LABS: Glucose - Point of Care 178 mg/dl (70-99)
--- NOTE | 2025-03-09 12:18 | W.PN.GS2 ---
Today's Communication / Plan
-
adv diet
TPN
Abx
PT/OT/OFF PREMISE SERVICE REPRESENTATIVE
Assessment / Plan
-
Patient is a 74 yo M POD 16 s/p reversal of end colostomy POD 10 s/p ex lap, colon resection, end colostomy creation for anastomotic leak,
Extubated
Pressors off
UOP good, H/H stable
Hypophosphatemia resolved
AFVSS, WBC trending down
Lots of brown stool output in appliance
Cards following, appreciate recs
Anticipated ileus, resolving
IR LUQ drain placed on 03/05/25 RUQ drain placed 03/06/25 with purulent drainage from both. Cx prelim no orgs no wbc
Rpt BCx with bacillus
Plan:
-- Monitor drains and follow cx
-- Puree/nectar thick diet
-- Follow labs
-- Continue TPN untl PO intake improved
-- DC DHT to help swallow function recovery
-- Abx: per ID, recs appreciated
-- OFF PREMISE SERVICE REPRESENTATIVE
-- PT/OT
Discussed care with nursing
Subjective Data
-
Date of Service: March 09, 2025
Off pressors, off vent, swallow function improving, weak, tired, pain controlled, brown stool stoma output
Objective Data
-
Intake and Output
03/08/25 03/09/25 03/10/25
06:59 06:59 06:59
Intake Total 3171.80 / 3302.50 1956.8 / 9.8 671.0 / 671.0
Output Total 2575 / 2575 4034 / 4159 1160 / 1160
Balance 596.80 / 727.50 -2077.2 / -2099.2 -489.0 / -489.0
Intake:
IV fluids (Total) 1015.80 / 1061.50 506.8 / 529.8 141.0 / 141.0
Fentanyl 345.0 / 360.0 30 30
Insulin (GP)100units/100ml Nss 41.1 / 42.8 62.8 / 65.8 21.0 / 21.0
Propofol 223.1 / 236.1 26 / 26
heparin 384 / 400 388 / 408 120 / 120
levophed gtt 22.60 / 22.60
IV piggybacks 100 / 100 50 / 50
TPN/PPN 1251 / 1301 1050 / 1095 270 / 270
Tube feeding 230 / 240 100 / 110 40 / 40
Feeding tube flush amount 575 / 600 250 / 275 200 / 200
Amount instilled into Drain (
Total)
Left Abdomen Celso-Loyd
Right Abdomen Celso-Loyd
Output:
Liquid stool amount 100 / 100 170 / 170 100 / 100
Colostomy 100 / 100 170 / 170 100 / 100
Drain Output (Total) 85 / 85
Left Abdomen Celso-Loyd
Right Abdomen Celso-Loyd 85 /
Urine, Hoffman 2450 / 2450 3839 / 3964 975 / 975
Vital Signs
Temp Pulse Resp BP Pulse Ox
97.5 F 87 29 113/48 99
03/09/25 11:29 03/09/25 10:21 03/09/25 10:21 03/09/25 10:21 03/09/25 10:21
Lab Results
03/09/25 04:11
03/09/25 04:11
Calcium 8.5 mg/dl (8.4-10.2) 03/09/25 04:11
Phosphorus 3.5 mg/dl (2.5-4.5) 03/07/25 03:14
Magnesium 2.5 mg/dl (1.6-2.3) H 03/09/25 04:11
Total Bilirubin 0.6 mg/dl (0.2-1.3) 03/07/25 03:14
Direct Bilirubin 1.9 mg/dl (0.0-0.4) H 03/02/25 03:45
AST 23 U/L (17-59) 03/07/25 03:14
ALT 16 U/L (0-50) 03/07/25 03:14
Alkaline Phosphatase 188 U/L (38-126) H 03/07/25 03:14
Total Protein 4.7 g/dl (6.3-8.2) L 03/07/25 03:14
Albumin 1.9 g/dl (3.5-5.0) L 03/07/25 03:14
Physical Exam
-
Gen: NAD
Abd: soft, approp ttp, incision with open areas with sero-purulent drainage (less purulent today), drains with purulent output
Patient has a hoffman catheter: Yes
Patient has a central line: Yes
[2025-03-09 12:30] LABS: APTT 89.4 Sec (23.4-35.0)
--- NOTE | 2025-03-09 12:30 | PTCARENOTE ---
Pt up in chair, VSS. Pt c/o pain. IV tylenol given.
[2025-03-09 13:42] LABS: Glucose - Point of Care 164 mg/dl (70-99)
--- NOTE | 2025-03-09 15:24 | CM ---
Addendum entered by Ivonne Hercules 03/09/25 15:39:
Provided Medicare .Gov list to Paul Wheeler, in room. Explained form and requested preferences. She will discuss with patient's daughters. Initial preference is [facility]. Referral will be sent. Requested additional preferences after speaking
with daughters.
Original Note:
Extubated, Bipap, off pressors, ileus resolving, IV/Lasix/heparin/Meropenem, TPN, increase diet. Discharge POC: Therapy recommending acute rehab. Will provide Medicare. Gov list and get preferences.
[2025-03-09 15:36] LABS: Glucose - Point of Care 180 mg/dl (70-99)
[2025-03-09] MEDS: TORADOL 15 MG IV (16:06)
[2025-03-09 17:30] LABS: Glucose - Point of Care 128 mg/dl (70-99)
[2025-03-09] MEDS: NOVOLIN R INSULIN INFUSION 100 IV (17:33)
--- NOTE | 2025-03-09 17:41 | PTCARENOTE ---
Addendum entered by Apurva Gtz RN 03/09/25 17:42:
Pt returned to bed, improved effort observed. Toradol given prior to mvmt.
Original Note:
Pt assisted OOB to chair with PT/OT-see note. PTT therapeutic. Insulin gtt continues.
[2025-03-09 18:15] LABS: Glucose - Point of Care 124 mg/dl (70-99)
[2025-03-09 18:37] LABS: APTT 100.0 Sec (23.4-35.0)
[2025-03-09 20:07] LABS: Glucose - Point of Care 210 mg/dl (70-99)
[2025-03-09] MEDS: LOPRESSOR 50 MG PO (20:44)
[2025-03-09] MEDS: TYLENOL 650 MG PO (20:45)
[2025-03-09 21:03] LABS: Glucose - Point of Care 204 mg/dl (70-99)
[2025-03-09] MEDS: Parenteral Nutrition, Central 1460 IV (21:20)
[2025-03-09 22:17] LABS: Glucose - Point of Care 189 mg/dl (70-99)
[2025-03-09] MEDS: APRESOLINE 10 MG IV (22:17)
--- NOTE | 2025-03-09 23:00 | PTCARENOTE ---
pt pulling off bipap, refusing to put it back on overnight. educated on reason and need for bipap therapy, states he understands risk of keeping it off. RT and ICU TICKET DISPENSER CHANGER updated, placed back on 2L NC. call velazquez in reach.
[2025-03-09 23:06] LABS: Glucose - Point of Care 190 mg/dl (70-99)
[2025-03-09 23:59] LABS: Glucose - Point of Care 183 mg/dl (70-99)
[2025-03-10] VITALS (27 sets, daily range): BP systolic 91–147; BP diastolic 38–130; PULSE 2–102; O2SAT 100; BMI 38.2
[2025-03-10 01:10] LABS: Glucose - Point of Care 131 mg/dl (70-99)
[2025-03-10 02:02] LABS: Glucose - Point of Care 138 mg/dl (70-99)
[2025-03-10] MEDS: MERREM 500 MG IV ×2 (03:05→09:16)
[2025-03-10] MEDS: STERILE WATER FOR INJECTION 10 ML IV ×2 (03:05→09:17)
[2025-03-10 03:15] LABS: Glucose - Point of Care 130 mg/dl (70-99)
[2025-03-10 03:20] LABS: Venous Blood Gas B.E. 7.4 mmol/L (-4 to +4); Venous Blood Gas O2 Sat % 99.7 %; Venous Blood Gas O2 Therapy NC
[2025-03-10 03:30] LABS: Hematocrit 29.0 % (39.0-52.0); Hemoglobin 9.6 g/dL (13.0-18.0); Mean Corp Hgb Conc. 33.1 g/dL (33.0-37.0); Mean Corpuscular Volume 90.3 fL (80.0-94.0); Platelet Count 458 10^3/uL (130-400); Red Cell Dist. Width 15.1 % (11.5-14.5)
[2025-03-10 03:37] LABS: APTT 87.3 Sec (23.4-35.0)
[2025-03-10 04:06] LABS: Glucose - Point of Care 136 mg/dl (70-99)
[2025-03-10 04:10] LABS: ALT (SGPT) 20 U/L (0-50); AST (SGOT) 38 U/L (17-59); Albumin 2.1 g/dl (3.5-5.0); Alkaline Phosphatase 219 U/L (38-126); Blood Urea Nitrogen 50 mg/dl (9-20); Calcium 8.7 mg/dl (8.4-10.2); Carbon Dioxide 30 mmol/L (22-30); Chloride 110 mmol/L (98-107); Estimated Creatinine Clearance 90 ml/min; Glucose 129 mg/dl (70-99); Potassium 3.9 mmol/L (3.5-5.1); Sodium 144 mmol/L (135-145); Total Protein 5.6 g/dl (6.3-8.2); eGFR > 60.00
[2025-03-10] MEDS: APRESOLINE 10 MG IV (04:53)
[2025-03-10 05:00] LABS: Glucose - Point of Care 125 mg/dl (70-99)
[2025-03-10] MEDS: HEPARIN 25000 UNITS/250 ML IV ×2 (05:03→17:47)
[2025-03-10 06:07] LABS: Glucose - Point of Care 118 mg/dl (70-99)
--- NOTE | 2025-03-10 06:50 | PTOTSP ---
Speech Therapy (03/09/25)
Speech Therapy Assessment
Patient showing signs of improving laryngeal function as evidenced by ability to generate a strong, clear voice and tolerance for some oral trials. Cough no longer bovine but remains weak. Overt signs concerning for aspiration with thin liquid, and
fatigue and deconditioning likely impacting extended processing time with solids.
Recommend
1. Level 4/puree and mildly thick liquids
2. Meds whole in puree
3. Aspiration precautions.
4. Continue to allow ice chips throughout day as tolerated per [facility]
5. ST will follow up and if patient continues to exhibit signs of aspiration with thin liquid, will consider instrumental testing with FEES favored over VSE.
[2025-03-10] MEDS: DESENEX/MITRAZOL/ZEASORB 1 APPLIC TOPICAL ×2 (07:33→20:21)
[2025-03-10] MEDS: LOPRESSOR 50 MG PO ×2 (07:33→20:21)
[2025-03-10] MEDS: LASIX 40 MG IV (07:33)
[2025-03-10] MEDS: NORVASC 10 MG PO (07:33)
[2025-03-10] MEDS: PEPCID 20 MG IV (07:34)
[2025-03-10] MEDS: NSS (PRESERVATIVE FREE) 8 ML IV (07:34)
--- NOTE | 2025-03-10 08:00 | PTCARENOTE ---
Received pt @ change of shift; pt. drowsy, awakens to verbal stim; ox3; flat/forgetful @ x's. Generalized weakness/deconditioned. Afib on monitor. 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
Hypoactive BS, abd round/obese. SUSAN x2 w purulent drainage. Midline abd incision and SUSAN dressings c/d/i. Colostomy w brown/liq stool. Hartman w clear, yellow urine. R DL PICC w TPN @ 61mL/hr; insulin gtt per glycemic protocol- see flow sheet. R rad
a-line transduced, calibrated, and monitored; all ports patent and secured. #22 L FA w heparin gtt per protocol- see flow sheet. Pt. repositioned in bed. Pt. instructed on how to report care concerns and call caroline w in reach.
--- NOTE | 2025-03-10 08:00 | W.PN.INTV ---
Today's Communication / Plan
Recommendations
- Pending ID recs for abx transition, now that susceptibilities returned
- meropenem & vancomycin for now
- Continue IV lasix 40mg bid throughout today, PO tomorrow
- Continue metoprolol 50mg bid, amlodipine 10mg daily, lisinopril 5mg daily
- Continue heparin gtt
- Lung POCUS today to eval R-side effusion
- Bipap to PRN today
- D/c a line & hoffman today
- Likely d/c TPN later today
- Continue puree diet
- Consider CT a/p at later point to eval intra-abd collections
- PT/OT
- SLT
Assessment
-
Pt is a 74-year-old male with a pmh notable for afib (on eliquis), HFpEF, HTN, and diverticulitis who p/w L-sided abdominal pain, vomiting, & chills in the s/o recent ex lap for perforated diverticulitis & formation of end colostomy, followed by
colostomy reversal on 02/21/25. Found on CT a/p to have postoperative leak at the left colonic anastomosis site with extraluminal contrast, with a large degree of pneumoperitoneum (02/27). Gen surg performed exlap w colon resection and creation of an
end colostomy (02/27). Patient remained intubated and was transferred to the ICU postoperatively. Multiplex Operator services consulted for additional management/recommendations. Plan/course as below.
Overview of ICU course: Patient was intubated for 1 day then extubated to BiPAP. However, patient was unable to be successfully weaned from BiPAP, experiencing episodes of hypercapnia when trialing off. Thought to be combination of
atelectasis/poor inspiratory ability in setting of ongoing sepsis/intraabdominal infection, as well as cardiopulmonary volume overload, with component of symptomatic A-fib with RVR. Given inability to wean from BiPAP, patient was reintubated on
03/04. CT scan on 03/05 demonstrated multiple intra-abdominal abscesses; IR guided drainage yielded purulent fluid from 2 areas. Patient with [address] Extubated on 03/08.
#Intra-abdominal abscesses
#Transient bacteremia in setting of colonic anastomotic leak
#Septic shock, resolved
Patient blood culture 03/01 positive for GPC bacilli. Repeat blood cultures without growth. Patient s/p Zosyn (02/27-03/07). Had been afebrile with WBCs trending down through 03/04. 03/05 CT scan demonstrated intra-abdominal abscesses ('left upper
quadrant and right upper quadrant of the abdomen, and smaller probable developing abscesses in the upper abdomen inferior to the distal stomach and in the anterior pelvis deep to the anterior pelvic wall'). On 03/05 & 03/06, IR drained purulent fluid
from left upper quadrant and right perihepatic space. Patient spiked fever to 100.6 on 03/07 afternoon. Off pressors on 03/08. Wound cx: e coli, second GNB, enterococcus sp. Susceptibilities returned.
Today: Afebrile. WBC: 26> 25.8> 20.3>13.4>12.2. 200ml from colostomy last 24hr. 25ml from L SUSAN drain, 105ml from R SUSAN drain last 24hr. Drains still w purulent fluid.
- Continue meropenem 500mg IV q6h (03/07�), pending ID
- Continue vancomycin IV (03/06�), pending ID
- Consider CT a/p this week
- Continue to monitor output from abdominal SUSAN drains
- ID following, appreciate recs
- Surgery following, appreciate recs
- Remove a-line today
- Remove hoffman today
#Acute hypoxic, hypercapnic respiratory failure
Patient was intubated 03/04 given inability to wean off of BiPAP. Failed assisted ventilation trial ASV on 03/07. CXR (03/08): Similar in appearance to CXR from 03/07 ('Low lung volumes. Small to moderate bilateral pleural effusions with adjacent
atelectasis/consolidation. Slightly improved as compared with previous exam'). ABG (03/08 early am): 7.43 pH, bicarb 30.5, pCO2 46. Extubated 03/08. CXR 03/09 similar to prior, slight improvement. Bedside US demonstrated small pleural effusion, +/-
sufficient to tap 03/09. CXR 03/10: slight improvement in appearance of R-sided pleural effusion.
Today: Satting >95% on 2L O2 NC. Did not wear BiPAP overnight much. Pt endorsing some dyspnea after speaking.
- Convert bipap to PRN today
- Incentive spirometry
- Encourage OOB
- PT/OT consulted
#HTN
Pt with hx of HTN. On lasix & metoprolol at home. Restarted metoprolol 03/08.
Today: BP 176/55 in am before meds given.
- Metoprolol 50mg bid
- Amlodipine 10mg daily
- Per cards, add lisinopril 5mg daily today
- Hydralazine 10gm q4h prn if systolic BP>170
- Continue to monitor BP & assess HR for bradycardia
#HFpEF (EF 40-45%)
#Bilateral pleural effusions
Patient with pleural effusions, likely secondary to combination of hypoalbuminemia and congestive heart failure. CXR 03/08 slightly improved vs. 03/07.
Today: fluid balance +50mL; weight 109.8>107.3>107.2 kg (lowest this admission 102 kg); Cr 1.2>1.0>0.8
- Continue IV Lasix 40 mg bid throughout today
- Transition to PO lasix tomorrow
- Daily weights, daily I's and O's
- Cards following, appreciate recs
#A-fib with RVR
#Prior episodes of bradycardia w pauses
Patient initially with rates in the 140�150s. HR has trended down to the 110�120s. Status post amiodarone and metoprolol. These were stopped on 03/04 in the setting of severe bradycardia with pauses.
Today: HR 99. Irregularly irregular. K 3.9, Mg 2.4
- Continue to monitor HR on telemetry
- Metoprolol 50mg bid
- Holding on amiodarone for now given rate control acceptable w metop & risk of bea overshoot
- Maintain K>4, Mg>2
- Continue heparin drip
- Avoid Precedex
- Cards following, appreciate recs
#Chronic
- HLD - holding home simvastatin, mgmt per primary dteam
#Global
- DVT PPx: Heparin gtt
- GI PPx: Famotidine 20 mg IV daily
- Diet: puree diet; likely d/c TPN by eod today; continue insulin infusion 4U/hr along with sliding scale aspart, wean down as TPN off; SLT eval
- Code: Full
- Dispo: Continue ICU level care today
Subjective Dataa
Subjective Data
Date of Service:
Date of Service: March 10, 2025
Chief Complaint: Multiplex Operator Follow Up
Subjective:
Patient awake, alert. Sitting up in bed with nasal cannula in place. Takes pauses between more slightly out of breath. Patient states that he does feel a dyspneic after speaking. States that he feels 'out of it.' When asked if he is confused
about where he is, he says no. States that he is at [facility]. States that he feels like he is out of this world, that he lives in family and feels disconnected from his family. Requesting that one of his daughters come to in person
today because he wants to speak with them. Otherwise denies any symptoms. Tremors in upper extremities. Per RN, did not wear BiPAP very much overnight. States that he used the incentive spirometer a few times since yesterday; states that he was
unsuccessful in using it. Understands that it was important to keep trying to use it.
Review of Systems
Cardiopulmonary: Dyspnea
Genitourinary: Hoffman
Objective Data
Data Reviewed
Vital Signs / I&O / Oxygen:
Vital Signs
Temp Pulse Resp BP Pulse Ox
98 F 99 25 176/55 99
03/10/25 03:28 03/10/25 07:33 03/10/25 06:00 03/10/25 07:33 03/10/25 06:00
Intake and Output
03/09/25 03/10/25 03/11/25
06:59 06:59 06:59
Intake Total 1956.8 / 2059.8 2202.0 / 2286.5 84.5 / 84.5
Output Total 4034 / 4159 2630 / 2630
Balance -2077.2 / -2099.2 -428.0 / -343.5 84.5 / 84.5
SaO2 [ASV] 99
SaO2 [CPAP/PSV] 98
SaO2 [A/C] 100
SaO2 99
Nasal Cannula flow liters per 2
minute
Physical Exam
General: Respiratory Distress (Patient appears to need to take additional breaths midsentence, but no accessory muscle use) and Other (O2 nasal cannula in place)
HEENT: Normocephalic and Anicteric
Cardiovascular: Irregular Rhythm (Irregularly irregular)
Respiratory: Clear (Clear to auscultation anteriorly), Accessory Resp Muscle Use (None) and Other (O2 NC )
GI: Soft (feels somewhat firm throughout but not hard ), Non Distended, Other (Colostomy bag with soft brown stool) and Other (2 SUSAN drains on right and left sides of colostomy; both with some purulent drainage)
Neurology: Awake, Alert, Oriented and Depressed (Patient seems depressed today)
Skin: Warm, Dry and Good Color
Labs/Micro/Reports
Lab Data
03/10/25 03:11
03/10/25 03:11
Laboratory Results
03/09/25 03/09/25 03/09/25
10:51 12:06 18:18
APTT 89.4 H 100.0 H
pH 7.48 H
pCO2 43
pO2 89
HCO3 32.0 H
O2 Delivery Level Not Reportable
03/10/25
03:11
APTT 87.3 H
pH
pCO2
pO2
HCO3
O2 Delivery Level
Microbiology
03/05/25 17:11 Abdomen Anaerobic Culture - Preliminary
Culture pending. Anaerobic cultures are examined after 3
days incubation. Additional information to follow.
03/05/25 11:35 Blood/Venous Blood Culture - Preliminary
No Growth in 4 days- Final report to follow
03/06/25 10:50 Abdomen Wound Culture - Final
Escherichia coli
Citrobacter youngae
Enterococcus faecalis
03/06/25 10:50 Abdomen Gram Stain - Final
03/05/25 17:11 Abdomen Wound Culture - Final
Escherichia coli
Citrobacter youngae
Enterococcus faecalis
03/05/25 17:11 Abdomen Gram Stain - Final
03/01/25 20:44 Blood/Venous Blood Culture - Final
Bacillus species,not anthracis
03/01/25 20:44 Blood/Venous Gram Stain - Final
[2025-03-10 08:01] LABS: Glucose - Point of Care 129 mg/dl (70-99)
--- NOTE | 2025-03-10 08:23 | PHA.VAN.FU ---
Addendum entered and electronically signed by Ghada Foster [facility] 03/10/25 08:32:
REDOSE VANCO 1250MG X1
Original Note:
Vancomycin Assessment / Plan
- Assessment
Renal Function: SCR Decreasing
WBC's are: Trending Down
In the past 24 hrs, patient has been: Afebrile
Concomitant Antimicrobials: MEROPENEM
- Assessment - Therapeutic Drug Monitoring
Random Level: 15.2 DRAWN ~19 HR AFTER PREVIOUS DOSE VANCO 1250MG
- Monitoring Plan
Random Level: RANDOM 03/11 @0600
- Follow Up
Pharmacy will continue to follow.
Vancomycin Follow UP
- -
Patient Age: 74
Patient Sex: Male
Vancomycin Day #: 7
Indication: Bacteremia
Requesting Provider: Lalo
Pertinent Antimicrobial Allergies:
NKDA
Height / Weight:
Height 5 ft 6 in
Actual Weight 107.3 kg
Pertinent Past Medical History: Colostomy closure 02/19/25 - pain near stoma
- Vital Signs / Lab Results
Temp Pulse Resp BP Pulse Ox
97.4 F 115 28 176/55 99
03/10/25 08:11 03/10/25 08:00 03/10/25 08:00 03/10/25 07:33 03/10/25 08:00
Lab Results - Hematology
03/08/25 03/09/25 03/10/25
03:22 04:11 03:11
WBC 20.3 H 13.4 H 12.2 H
Lab Results - Chemistry
03/08/25 03/09/25 03/10/25
03:22 04:11 03:11
BUN 50 H 44 H 50 H
Creatinine 1.2 1.0 0.8
Estimated Creat Clear 61 73 90
Albumin 2.1 L
Microbiology Results
03/05/25 17:11 Anaerobic Culture - Preliminary
Abdomen Culture pending. Anaerobic cultures are examined after 3
days incubation. Additional information to follow.
03/05/25 11:35 Blood Culture - Preliminary
Blood/Venous No Growth in 4 days- Final report to follow
03/06/25 10:50 Wound Culture - Final
Abdomen Escherichia coli
Citrobacter youngae
Enterococcus faecalis
Gram Stain - Final
03/05/25 17:11 Wound Culture - Final
Abdomen Escherichia coli
Citrobacter youngae
Enterococcus faecalis
Gram Stain - Final
03/01/25 20:44 Blood Culture - Final
Blood/Venous Bacillus species,not anthracis
Gram Stain - Final
Therapeutic Drug Monitoring
Random Vancomycin 15.2 ug/ml 03/10/25 03:11
--- NOTE | 2025-03-10 08:58 | W.PN.CD ---
Today's Communication / Plan
-
IV heparin drip
transition to PO lasix tomorrow
add lisinopril
Impression / Plan
-
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
discharge on 02/25 following elective colostomy reversal for repeated perforated diverticulitis in 11/2024, found to have anastomotic leak CT imaging with pneumoperitoneum (02/27) requiring ex lap with bowel resection and end colostomy creation. He
remains in ICU in persistent Afib with RVR.
Acute hypoxic respiratory failure
- extubated 03/08
Shock
-improved, pressors off 03/07
- Likely septic with CT A/P on 03/05 showing multiple intra-abdominal abscesses, now s/p IR drain to yuliet-hepatic abscess 03/06
- Continue antibiotics
Severe bradycardia with pauses
- Occurred on 03/04/2025 in the setting of Precedex, IV amiodarone, and beta-rey.
- No recurrence on telemetry
- now back on metoprolol tartrate 50mg bid (home med), and stable
Suspected permanent Afib, now with RVR this admission
- As above, he had severe bradycardia with long pauses in the setting of Precedex, IV amiodarone, and beta-rey
- Heart rates now controlled, on metoprolol tartrate 50mg bid: avg 90s
- Continue heparin drip for AC, with monitoring of Hgb
HFimpEF: acute
- Preop eval: Echo LVEF 40-45% and only mild valve disease but date of echo unclear, perhaps 07/2023.
- Cath: No obstructive CAD but date of cath uncertain, perhaps 08/2023.
- Echocardiogram 03/03/2025 with LVEF of 65%; RV appeared dilated with low normal systolic function.
- transition to PO lasix tomorrow
HTN
-resumed home amlodipine 03/09
-add lisinopril 5mg daily
Postoperative anastomotic leak status post exploratory laparotomy, colon resection and creation of end colostomy:
- Management as per Surgical team; on antibiotics.
Physical Exam
Vital Signs/Labs
Vital Signs
Temp Pulse Resp BP Pulse Ox
97.4 F 115 28 176/55 99
03/10/25 08:11 03/10/25 08:00 03/10/25 08:00 03/10/25 07:33 03/10/25 08:29
03/09/25 03/10/25 03/11/25
06:59 06:59 06:59
Actual Weight 107.2 kg 107.3 kg
03/10/25 03:11
03/10/25 03:11
PT 19.9 Sec (11.4-14.6) H 02/27/25 16:52
INR 1.67 02/27/25 16:52
APTT 87.3 Sec (23.4-35.0) H 03/10/25 03:11
Magnesium 2.5 mg/dl (1.6-2.3) H 03/09/25 04:11
Triglycerides Cancelled 03/10/25 06:00
03/02/25 03/04/25 03/05/25
03:45 04:09 04:54
Lly-G-Bzskyoumwao Pept [id number] 1980
03/07/25
03:14
Ohs-B-Zuuwfnoorbn Pept 482
Physical Exam
Constitutional: No acute distress
EENT: Moist mucous membranes
Cardiovascular: Pedal edema is absent, JVD pressure is normal, Systolic murmur absent and Rhythm/rate is irregular
Respiratory: Respiratory effort normal
Neuro/Psych: Alert
Data Reviewed
-
Date of Service: March 10, 2025
EKG: Other (Tele: A )
Labs: Labs Reviewed by me
[2025-03-10] MEDS: NOVOLOG FLEXPEN 4 UNITS SC ×3 (09:16→18:19)
[2025-03-10] MEDS: ZESTRIL 5 MG PO (09:16)
[2025-03-10] MEDS: VANCOCIN 275 MG IV (09:16)
[2025-03-10] MEDS: TORADOL 15 MG IV (09:23)
[2025-03-10 09:39] LABS: Magnesium 2.4 mg/dl (1.6-2.3)
--- NOTE | 2025-03-10 10:04 | W.PN.ID1 ---
Addendum entered and electronically signed by Riley Ingram DO 03/10/25 11:40:
I saw and evaluated the patient. I reviewed the resident�s note and agree with findings and plan as documented in the resident�s note.
Consolidate to zosyn. Follow WBC / temps.
Original Note:
Date of Service
Date of Service: March 10, 2025
Today's Communication
- Continue Antibiotics (De-escalated to Zosyn)
Assessment / Plan
74-year-old male with a significant past medical history including A-fib, colostomy in August 2024 for perforated diverticulitis and then underwent elective reversal of colostomy on 02/21. On 02/27 he presented to the hospital with nausea and vomiting
and was found to have free air in the abdomen and underwent ex lap, colon resection, end colostomy creation for anastomotic leak.
#Anastomotic leak / perforated viscus
#Abdominal abscesses; s/p drainage
- Cultures with E. coli, Citrobacter, Enterococcus
#Leukocytosis
- Improving
#Bacteremia
- suspect possible contamination
Recommendations:
- Cultures grew E. coli, Citrobacter, Enterococcus
- Sensitivities back, sensitive to Zosyn
- Repeat blood cultures (03/05) - NGTD
- De-escalate abx to Zosyn
Follow WBC and temp curve
Follow drain output.
Continue with supportive measures
����������������������������������������������������������
Chief Complaint
-: Leukocytosis and Other (Intra-abdominal abscesses)
Subjective / Review of Systems
Patient seen this morning, was resting comfortably in his bed. He was able to speak with him and he said that his pain levels have been manageable. Says that toe situation has been very rough for him. Does not have any acute concerns at this time.
Review of Systems: No Fever, No Chills, No Headache, No Cough and No Chest Pain
Vital Signs / Physical Exam
Vital Signs
Vital Signs
Temp Pulse Resp BP Pulse Ox
97.4 F 97 28 149/48 99
03/10/25 08:11 03/10/25 09:16 03/10/25 08:00 03/10/25 09:16 03/10/25 08:29
Physical Exam
Constitutional: No Acute Distress, Comfortable and Non-toxic
Head: Normocephalic and Other (DHT Removed yesterday)
Oropharyngeal: Other (Difficulty speaking)
Cardiovascular: Irregular Rate and S1/S2; Negative Peripheral Edema
Gastrointestinal: Soft, Non Tender and Other (Ostomy in place, 2x SUSAN tubes continue to drain purulent fluid)
Extremities: Negative Edema
Skin: Warm
Neurological: Awake, Alert, Oriented and AO x 3
Psychological: Calm
Objective Data
Lab Data
Lab Results
03/10/25 03:11
03/10/25 03:11
PT 19.9 Sec (11.4-14.6) H 02/27/25 16:52
INR 1.67 02/27/25 16:52
APTT 87.3 Sec (23.4-35.0) H 03/10/25 03:11
Estimated Creat Clear 90 ml/min 03/10/25 03:11
Lactic Acid 1.5 mmol/L (0.7-2.0) 03/01/25 03:18
Total Bilirubin 0.5 mg/dl (0.2-1.3) 03/10/25 03:11
AST 38 U/L (17-59) 03/10/25 03:11
ALT 20 U/L (0-50) 03/10/25 03:11
Alkaline Phosphatase 219 U/L (38-126) H 03/10/25 03:11
Most recent labs reviewed.
Microbiology: Report Reviewed
Micro Results:
03/05/25 17:11 Anaerobic Culture - Preliminary
Abdomen Culture pending. Anaerobic cultures are examined after 3
days incubation. Additional information to follow.
03/05/25 11:35 Blood Culture - Preliminary
Blood/Venous No Growth in 4 days- Final report to follow
03/06/25 10:50 Wound Culture - Final
Abdomen Escherichia coli
Citrobacter youngae
Enterococcus faecalis
Gram Stain - Final
03/05/25 17:11 Wound Culture - Final
Abdomen Escherichia coli
Citrobacter youngae
Enterococcus faecalis
Gram Stain - Final
03/01/25 20:44 Blood Culture - Final
Blood/Venous Bacillus species,not anthracis
Gram Stain - Final
03/01/25 19:46 Blood Culture - Final
Blood/Venous No Growth - Final Report
Imaging:
03/05/2025: CT Chest/abd/pel W Iv Contrast: Postoperative abdomen with developing intra-abdominal abscesses in the left upper quadrant and right upper quadrant of the abdomen, and smaller probable developing abscesses in the upper abdomen inferior
to the distal stomach and in the anterior pelvis deep to the anterior pelvic wall.
Small bilateral pleural effusions and bilateral lower lobe compressive atelectasis.
02/27/2025: CT Abd/pel W Iv And Oral Contrast: 1. Postoperative leak at the left colonic anastomosis, with extraluminal contrast. Large degree of pneumoperitoneum.2. Trace bilateral pleural effusions with associated probable atelectasis. Cannot rule
out superimposed left lower lobe pneumonia.
CT Scan: Report Reviewed
[2025-03-10 10:12] LABS: Glucose - Point of Care 155 mg/dl (70-99)
--- NOTE | 2025-03-10 11:05 | W.PN.GS2 ---
Today's Communication / Plan
-
`
Assessment / Plan
-
Assessment: 74 yo M POD 17 s/p reversal of end colostomy POD 11 s/p ex lap, colon resection, end colostomy creation for anastomotic leak,
AFVSS
WBC continues to improve
good ostomy function
IR LUQ drain placed on 03/05/25 - less purulent and becoming serous
RUQ drain placed 03/06/25 - purulent
polymicrobial on cutures - ID following
Plan:
-- Puree/nectar thick diet per speach recommendations
if also consumes all of lunch tray then finish out this bag of TPN without renewal
-- Abx: per ID, recs appreciated
-- continue PT/OT/ST
Subjective Data
-
Date of Service: March 10, 2025
Patient seen and examined. Daughter at bedside.
Nursing at bedside
Just finished eating pur�ed breakfast tray
Denies significant abdominal pain
Objective Data
-
Intake and Output
03/09/25 03/10/25 03/11/25
06:59 06:59 06:59
Intake Total 1956.8 / 2059.8 2202.0 / 2286.5 340.5 / 340.5
Output Total 4034 / 4159 2630 / 2630 350 / 350
Balance -2077.2 / -2099.2 -428.0 / -343.5 -9.5 / -9.5
Intake:
Oral fluids 120 / 120
IV fluids (Total) 506.8 / 529.8 582.0 / 605.5 96.5 / 96.5
Fentanyl 30 / 30
Insulin (GP)100units/100ml Nss 62.8 / 65.8 102.0 / 105.5 16.5 / 16.5
Propofol 26 / 26
heparin 388 / 408 480 / 500 80 / 80
IV piggybacks 50 / 50
TPN/PPN 1050 / 1095 1240 / 1301 244 / 244
Tube feeding 100 / 110 40 / 40
Feeding tube flush amount 250 / 275 200 / 200
Amount instilled into Drain (
Total)
Left Abdomen Celso-Loyd
Right Abdomen Celso-Loyd
Output:
Liquid stool amount 170 / 170 200 / 200
Colostomy 170 / 170 200 / 200
Drain Output (Total) 130 / 130
Left Abdomen Celso-Loyd 20
Right Abdomen Celso-Loyd 105 / 105
Urine, Hartman 3839 / 3964 2300 / 2300 350 / 350
Vital Signs
Temp Pulse Resp BP Pulse Ox
97.4 F 97 28 149/48 99
03/10/25 08:11 03/10/25 09:16 03/10/25 08:00 03/10/25 09:16 03/10/25 08:29
Lab Results
03/10/25 03:11
03/10/25 03:11
Calcium 8.7 mg/dl (8.4-10.2) 03/10/25 03:11
Phosphorus 3.5 mg/dl (2.5-4.5) 03/07/25 03:14
Magnesium 2.4 mg/dl (1.6-2.3) H 03/10/25 03:11
Total Bilirubin 0.5 mg/dl (0.2-1.3) 03/10/25 03:11
Direct Bilirubin 1.9 mg/dl (0.0-0.4) H 03/02/25 03:45
AST 38 U/L (17-59) 03/10/25 03:11
ALT 20 U/L (0-50) 03/10/25 03:11
Alkaline Phosphatase 219 U/L (38-126) H 03/10/25 03:11
Total Protein 5.6 g/dl (6.3-8.2) L 03/10/25 03:11
Albumin 2.1 g/dl (3.5-5.0) L 03/10/25 03:11
Physical Exam
-
NAD AAOx3
ABD: Soft, nondistended, no significant tenderness to palpation.
Left-sided IR drain with scant mostly serous fluid
Right sided IR drain purulent contents in bulb
Midline incision with open wound between intervening sarah. No erythema, no significant active drainage.
--- NOTE | 2025-03-10 12:00 | PTCARENOTE ---
pt. assisted OOB to chair w PT/OT x3 w RW @ approx 1100; tolerated activity and remains in chair @ this time. Appetite remains poor. Remains on TPN, heparin, and insulin gtts- see flow sheet. Daughter @ bedside, updated; call velazquez remains w in
reach.
[2025-03-10 12:07] LABS: Glucose - Point of Care 172 mg/dl (70-99)
[2025-03-10] MEDS: ZOSYN 50 IV ×2 (13:07→17:50)
--- NOTE | 2025-03-10 13:50 | PN.DE.MGMTRT ---
Insulin Management
- -
03/10/2025: Diabetes Management Consult Follow up
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
colostomy reversal for repeated perforated diverticulitis in 11/2024, found to have anastomotic leak CT imaging with pneumoperitoneum (02/27) requiring ex lap with bowel resection and end colostomy creation on 02/27. Prior to admission was taking no
diabetes medications. A1C 6.2%, Cr 1.1, eGFR >60.
Pt remains critically ill, extubated yesterday, required BiPap @ night, O2 NC - out of bed to chair but sleeping. No Family at bedside.
Pureed diet has been started, patient taking small amounts, continues with TPN. Has required 1.5 to 4 units of insulin per hour. Will continue glycemic protocol while TPN continues.
Discussed with nurse.
Will cont to follow.
Diabetes History
- -
Pre-Admission Diabetes Regimen
03/10/25
03:11
Creatinine 0.8
Lab Results
Hemoglobin A1c 6.2 % (4.0-5.6) H 02/28/25 02:57
Insulin Pump Settings
IP Diabetes Regimen
03/09/25 03/09/25 03/09/25
15:34 17:29 18:13
Glucose
POC Glucose 180 H 128 H 124 H
03/09/25 03/09/25 03/09/25
20:05 21:02 22:16
Glucose
POC Glucose 210 H 204 H 189 H
03/09/25 03/09/25 03/10/25
23:04 23:57 01:08
Glucose
POC Glucose 190 H 183 H 131 H
03/10/25 03/10/2525
02:01 03:11 03:13
Glucose 129 H
POC Glucose 138 H 130 H
03/10/25 03/10/25 03/10/25
04:05 04:59 06:05
Glucose
POC Glucose 136 H 125 H 118 H
03/10/25 03/10/25 03/10/25
08:00 10:10 12:06
Glucose
POC Glucose 129 H 155 H 172 H
Meal type: Dinner
Amount consumed: 25%
Patient Education
[2025-03-10 13:52] LABS: Glucose - Point of Care 122 mg/dl (70-99)
--- NOTE | 2025-03-10 15:35 | CM ---
Bipap now PRN, TPN, IV/heparin, IV/insulin drip, IV/Zosyn, trickle feeds via NGT, puree diet, colostomy. Possible d/c of TPN today. Discharge POC: Acute Rehab. Referrals previously forwarded.
[2025-03-10 16:17] LABS: Glucose - Point of Care 133 mg/dl (70-99)
[2025-03-10] MEDS: NOVOLIN R INSULIN INFUSION 100 IV (16:20)
[2025-03-10] MEDS: LASIX 20 MG IV (16:23)
[2025-03-10 18:00] LABS: Glucose - Point of Care 126 mg/dl (70-99)
[2025-03-10 18:19] LABS: B.E. 6.6 mmol/L; HCO3 31.9 mmol/L (21-28); O2 Saturation % 96.5 % (94-98); PCO2 48 mmHg (35-48); PO2 78 mmHg (83-108)
--- NOTE | 2025-03-10 18:30 | PTCARENOTE ---
pt. noted to have more episodes of confusion; easily redirected and currently oriented. Pt. sleep also noted to remain inadequate. Dr. Medrano made aware and further orders received for ABG- drawn and sent to lab by RT; results reviewed and plan to
continue w current care, remains on 2LNC. Next shift updated.
[2025-03-10 20:03] LABS: Glucose - Point of Care 172 mg/dl (70-99)
[2025-03-10] MEDS: Parenteral Nutrition, Central 1460 IV (20:23)
[2025-03-10 22:08] LABS: Glucose - Point of Care 139 mg/dl (70-99)
[2025-03-10 23:02] LABS: Glucose - Point of Care 132 mg/dl (70-99)
--- NOTE | 2025-03-10 23:35 | PTCARENOTE ---
report received at 2315, pt drowsy but alert and follows commands, respiratory at bedside to place BIPAP, pt on hep gtt, insulin and TPN per MD orders, call velazquez in reach
[2025-03-11] VITALS (32 sets, daily range): BP systolic 80–154; BP diastolic 45–76; PULSE 90; BMI 38.6
[2025-03-11] MEDS: ZOSYN 50 IV ×5 (00:16→23:33)
--- NOTE | 2025-03-11 00:20 | PTCARENOTE ---
all ABD dressing changed per orders, pt tolerated, remains on BIPAP
[2025-03-11 01:16] LABS: Glucose - Point of Care 110 mg/dl (70-99)
[2025-03-11 02:17] LABS: Glucose - Point of Care 98 mg/dl (70-99)
[2025-03-11 03:12] LABS: Glucose - Point of Care 106 mg/dl (70-99)
[2025-03-11 04:10] LABS: Glucose - Point of Care 132 mg/dl (70-99)
--- NOTE | 2025-03-11 04:25 | PTCARENOTE ---
no changes from prior assessment, call velazquez in reach
[2025-03-11 04:38] LABS: Hematocrit 28.8 % (39.0-52.0); Hemoglobin 9.1 g/dL (13.0-18.0); Mean Corp Hgb Conc. 31.6 g/dL (33.0-37.0); Mean Corpuscular Volume 91.7 fL (80.0-94.0); Platelet Count 509 10^3/uL (130-400); Red Cell Dist. Width 15.4 % (11.5-14.5)
[2025-03-11 05:12] LABS: Triglycerides 85 mg/dl (10-149)
[2025-03-11 05:15] LABS: Glucose - Point of Care 124 mg/dl (70-99)
[2025-03-11 05:53] LABS: APTT 117.0 Sec (23.4-35.0)
[2025-03-11] MEDS: HEPARIN 25000 UNITS/250 ML IV (06:04)
[2025-03-11 06:15] LABS: Glucose - Point of Care 178 mg/dl (70-99)
--- NOTE | 2025-03-11 07:37 | PN.DE.MGMTRT ---
Insulin Management
- -
03/11/2025: Diabetes Management Follow up
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
colostomy reversal for repeated perforated diverticulitis in 11/2024, found to have anastomotic leak CT imaging with pneumoperitoneum (02/27) requiring ex lap with bowel resection and end colostomy creation on 02/27. Prior to admission was taking no
diabetes medications. A1C 6.2%, Cr 1.1, eGFR >60.
Pt remains critically ill, extubated 03/09, required BiPap @ night, O2 NC. Sitting up in bed, able to discuss diabetes care plan. Dtr at bedside.
Pureed diet was started yesterday, patient taking small amounts, continues with TPN. Glucose range 98 to 178, insulin infusion was off all night. 8AM glucose was 182, insulin infusion was restarted @ 3 units per hour. Will continue glycemic
protocol while TPN continues.
Discussed with nurse. Will cont to follow.
Diabetes History
- -
Type of Diabetes: 2 requiring insulin
Pre-Admission Diabetes Regimen
Lab Results
Hemoglobin A1c 6.2 % (4.0-5.6) H 02/28/25 02:57
Insulin Pump Settings
IP Diabetes Regimen
03/10/25 03/10/25 03/10/25
08:00 10:10 12:06
POC Glucose 129 H 155 H 172 H
03/10/25 03/10/25 03/10/25
13:51 16:06 17:59
POC Glucose 122 H 133 H 126 H
03/10/25 03/10/25 03/10/25
20:00 22:06 23:00
POC Glucose 172 H 139 H 132 H
03/11/25 03/11/25 03/11/25
01:04 02:05 03:00
POC Glucose 110 H 98 106 H
03/11/25 03/11/25 03/11/25
03:59 05:03 06:03
POC Glucose 132 H 124 H 178 H
Patient Education
[2025-03-11] MEDS: LASIX 40 MG PO (07:43)
[2025-03-11] MEDS: LOPRESSOR 50 MG PO ×2 (07:43→20:07)
[2025-03-11] MEDS: NSS (PRESERVATIVE FREE) 8 ML IV (07:44)
[2025-03-11] MEDS: PEPCID 20 MG IV (07:44)
[2025-03-11] MEDS: DESENEX/MITRAZOL/ZEASORB 1 APPLIC TOPICAL ×2 (07:48→20:10)
--- NOTE | 2025-03-11 07:48 | W.PN.GS2 ---
Addendum entered and electronically signed by Sahil Sandoval MD 03/11/25 10:14:
CT reviewed, new collection to anterior pelvis, IR consulted. D/w ID abx, plan to cont zosyn monotherapy for now. Daughter Tammy updated by phone.
Addendum entered and electronically signed by Sahil Sandoval MD 03/11/25 08:43:
addendum: OK to restart eliquis
Addendum entered and electronically signed by Sahil Sandoval MD 03/11/25 07:52:
addendum: Rpt CT today
Original Note:
Today's Communication / Plan
-
PT/OT
IV abx
TPN
Assessment / Plan
-
Assessment: 74 yo M POD 18 s/p reversal of end colostomy POD 12 s/p ex lap, colon resection, end colostomy creation for anastomotic leak
AFVSS
WBC trended up today
good ostomy function
IR LUQ drain placed on 03/05/25 - less purulent and becoming serous
RUQ drain placed 03/06/25 - purulent
LLQ opld drain site with new purulent drainage
polymicrobial on cutures - ID following
Plan:
-- Puree/nectar thick diet per speach recommendations
limited PO intake, cont TPN for today
ensure added BID, if tolerates ensure x2 then no further TPN
-- Abx: per ID, recs appreciated, consider restarting vanc for enterococcal coverage
-- continue PT/OT/ST
Subjective Data
-
Date of Service: March 11, 2025
AFVSS, no complaints this am, pain controlled, little PO intake, hoffman out and voiding
Objective Data
-
Intake and Output
03/10/25 03/11/25 03/12/25
06:59 06:59 06:59
Intake Total 2202.0 / 2286.5 1738.3 / 1738.3
Output Total 2630 / 2630 2250 / 2250
Balance -428.0 / -343.5 -511.7 / -511.7
Intake:
Oral fluids 120 / 120
IV fluids (Total) 582.0 / 605.5 468.3 / 468.3
Insulin (GP)100units/100ml Nss 102.0 / 105.5 69.3 / 69.3
heparin 480 / 500 399 / 399
IV piggybacks 50 / 50
TPN/PPN 1240 / 1301 1220 / 1220
Tube feeding 40 / 40
Feeding tube flush amount 200 / 200
Amount instilled into Drain ( 20 / 20
Total)
Left Abdomen Celso-Loyd 10
Right Abdomen Celso-Loyd 10 10
Output:
Liquid stool amount 200 / 200 500 / 500
Colostomy 200 / 200 500 / 500
Drain Output (Total) 130 / 130 300 / 300
Left Abdomen Celso-Loyd 25 / 25
Right Abdomen Celso-Loyd 105 / 105 300 / 300
Urine, Hoffman 2300 / 2300 1150 / 1150
Urine, Voided 300 / 300
Other:
How many times incontinent 1
MODERATE amount urine
Vital Signs
Temp Pulse Resp BP Pulse Ox
97.7 F 98 28 138/48 96
03/11/25 07:27 03/11/25 06:00 03/11/25 06:00 03/11/25 06:00 03/11/25 06:00
Lab Results
03/11/25 04:02
03/10/25 03:11
Calcium 8.7 mg/dl (8.4-10.2) 03/10/25 03:11
Phosphorus 3.5 mg/dl (2.5-4.5) 03/07/25 03:14
Magnesium 2.4 mg/dl (1.6-2.3) H 03/10/25 03:11
Total Bilirubin 0.5 mg/dl (0.2-1.3) 03/10/25 03:11
Direct Bilirubin 1.9 mg/dl (0.0-0.4) H 03/02/25 03:45
AST 38 U/L (17-59) 03/10/25 03:11
ALT 20 U/L (0-50) 03/10/25 03:11
Alkaline Phosphatase 219 U/L (38-126) H 03/10/25 03:11
Total Protein 5.6 g/dl (6.3-8.2) L 03/10/25 03:11
Albumin 2.1 g/dl (3.5-5.0) L 03/10/25 03:11
Physical Exam
-
Gen: NAD
Abd: soft, nt, RUQ drain with purulent drainage, LUQ drain with seropurulent drainage, midline incsioj open areas granulating, minimal serous drainage, LLQ old drain site with new purulent drainage, stoma appliance with thick brown stool
Patient has a hoffman catheter: No
Patient has a central line: Yes
--- NOTE | 2025-03-11 07:55 | W.PN.INTV ---
Today's Communication / Plan
Recommendations
- IR today for repeat drainage of intra-abdominal abscesses
- Start home CPAP at night
- O2 NC during day, wean as tolerated
- FEES for swallow eval; continue TPN and puree diet in interim (NPO today prior to IR drainage)
- Holding amlodipine
- Continue 50mg metoprolol bid
- Continue 5mg lisinopril daily
- Continue PO lasix 40mg daily
- Continue IV heparin
- Continue insulin 3u/hr
- Convert famotidine to PPI
- Start nightly 50mg seroquel
Assessment
-
Pt is a 74-year-old male with a pmh notable for afib (on eliquis), HFpEF, HTN, and diverticulitis who p/w L-sided abdominal pain, vomiting, & chills in the s/o recent ex lap for perforated diverticulitis & formation of end colostomy, followed by
colostomy reversal on 02/21/25. Found on CT a/p to have postoperative leak at the left colonic anastomosis site with extraluminal contrast, with a large degree of pneumoperitoneum (02/27). Gen surg performed exlap w colon resection and creation of an
end colostomy (02/27). Patient remained intubated and was transferred to the ICU postoperatively. Laundry Bag Punch Operator services consulted for additional management/recommendations. Plan/course as below.
Overview of ICU course: Patient was intubated for 1 day then extubated to BiPAP. However, patient was unable to be successfully weaned from BiPAP, experiencing episodes of hypercapnia when trialing off. Thought to be combination of
atelectasis/poor inspiratory ability in setting of ongoing sepsis/intraabdominal infection, as well as cardiopulmonary volume overload, with component of symptomatic A-fib with RVR. Given inability to wean from BiPAP, patient was reintubated on
03/04. CT scan on 03/05 demonstrated multiple intra-abdominal abscesses; IR guided drainage yielded purulent fluid from 2 areas. Patient with [address] Extubated on 03/08. CT 03/11 demonstrated mild decrease of intraabdominal
abscesses with drains but persistence of significant fluid collections, with new collections in perisplenic/subdiaphragmatic space.
#Intra-abdominal abscesses
#Transient bacteremia in setting of colonic anastomotic leak
#Septic shock, resolved
Patient blood culture 03/01 positive for GPC bacilli. Repeat blood cultures without growth. Patient s/p Zosyn (02/27-03/07); vanc (03/06-03/10), meropenem (03/07-03/10). Had been afebrile with WBCs trending down through 03/04. 03/05 CT scan demonstrated
intra-abdominal abscesses ('left upper quadrant and right upper quadrant of the abdomen, and smaller probable developing abscesses in the upper abdomen inferior to the distal stomach and in the anterior pelvis deep to the anterior pelvic wall'). On
03/05 & 03/06, IR drained purulent fluid from left upper quadrant and right perihepatic space. Patient spiked fever to 100.6 on 03/07 afternoon. Off pressors on 03/08. Wound cx: e coli, second GNB, enterococcus sp. Susceptibilities returned. CT ap
(03/11): Multiple intra-abdominal fluid collection/abscesses. Interval placement of percutaneous drainage catheters within anterior left upper quadrant and right perihepatic fluid collections with improvement of both, noting significant residual
fluid collections remain, particular within the left upper quadrant. Additional fluid collections identified within the perisplenic/subdiaphragmatic space and anterior pelvis.'
Today: Afebrile. WBC: 26>>>>13.4>12.2>16.4. 500ml from colostomy last 24hr. 300ml from R SUSAN drain last 24hr. Drains still w purulent fluid, particularly LLQ.
- Continue Zosyn 3.375 q6h (03/10-)
- Plan for repeat drainage with IR today
- Continue to monitor output from abdominal SUSAN drains
- ID following, appreciate recs
- Surgery following, appreciate recs
#Acute hypoxic, hypercapnic respiratory failure
Patient was intubated 03/04 given inability to wean off of BiPAP. Failed assisted ventilation trial ASV on 03/07. CXR (03/08): Similar in appearance to CXR from 03/07 ('Low lung volumes. Small to moderate bilateral pleural effusions with adjacent
atelectasis/consolidation. Slightly improved as compared with previous exam'). ABG (03/08 early am): 7.43 pH, bicarb 30.5, pCO2 46. Extubated 03/08. CXR 03/09 similar to prior, slight improvement. Bedside US demonstrated small pleural effusion, +/-
sufficient to tap 03/09. CXR 03/10: slight improvement in appearance of R-sided pleural effusion. CT 03/11: 'Small bilateral pleural effusions with adjacent atelectasis within both lower lobes.' Reduced in size, no need for effusion drainage. Suspect
resp status will continue to improve s/p ongoing abscess drainage (& lasix).
Today: Satting 96% on 2L O2 NC. Did not wear BiPAP overnight much (~2hr total). Did not require PRN bipap yesterday during the day. Pt taking breaths while speaking single sentences, dyspneic. But able to eat/converse with only NC in place.
- O2 NC today, wean down as tolerated
- CPAP at night (uses at home)
- Incentive spirometry
- Encourage OOB
- PT/OT following
#HTN, resolved
Pt with hx of HTN. On lasix & metoprolol at home.
Today: BP 138/48. Dipping to 100s systolic periodically.
- Metoprolol 50mg bid
- Lisinopril 5mg daily
- Hold amlodipine today
- Hydralazine 10gm q4h prn if systolic BP>170
- Continue to monitor BP & assess HR for bradycardia
#HFpEF (EF 40-45%)
#Bilateral pleural effusions
Patient with pleural effusions, likely secondary to combination of hypoalbuminemia and congestive heart failure. CXR 03/08 slightly improved vs. 03/07.
Today: fluid balance -562mL; weight 109.8>107.3>>108.4 kg (lowest this admission 102 kg); Cr 1.2>1.0>0.8
- PO lasix 40mg daily
- Daily weights, daily I's and O's
- Cards following, appreciate recs
#A-fib with RVR
#Prior episodes of bradycardia w pauses
Patient initially with rates in the 140�150s. HR has trended down to the 110�120s. Status post amiodarone and metoprolol. These were stopped on 03/04 in the setting of severe bradycardia with pauses.
Today: HR 98. Irregularly irregular.
- Continue to monitor HR on telemetry
- Metoprolol 50mg bid
- Holding on amiodarone for now given rate control acceptable w metop & risk of bea overshoot
- Maintain K>4, Mg>2
- Continue heparin drip
- Avoid Precedex
- Cards following, appreciate recs
#Hospital-induced delirium
Pt daughter endorses that he's seeing/talking to people who aren't there. Some confusion/hallucinations. Has not been sleeping well for the past few days. Likely in s/o delirium from hospitalization/lack of sleep.
- Start seroquel 50mg nightly to improve sleep
- Transition famotidine to pantoprazole
- Encourage OOB, blinds open
- Encourage reorientation to time/place/situation by family at bedside
#Chronic
- HLD - have been holding home simvastatin, consider restarting
#Global
- DVT PPx: Heparin gtt
- GI PPx: PPI
- Diet: puree diet; ensures added; tentatively continue TPN pending PO intake, managed by gen surg; insulin 3U/hr restarted this am; FEES today vs. tmrw per SLT
- Code: Full
- Dispo: Continue ICU level care today
Subjective Dataa
Subjective Data
Date of Service:
Date of Service: March 11, 2025
Chief Complaint: Laundry Bag Punch Operator Follow Up
Subjective:
This am, patient sitting up in bed eating puree bfast w O2 NC in place. Still breathless with speaking full sentence (name & ). Oriented/alert. Daughter at bedside. She states that pt has been intermittently confused/with hallucinations. Pt has
not been sleeping well the past few nights. Only used bipap 2 hrs last night (not because it was requested by him). Did not request bipap prn yesterday during day.
Review of Systems
General: Satisfactory Appetite
Cardiopulmonary: Dyspnea (with speaking ) and Edema (improved in bilat feet)
GI: Nausea (denies) and Vomiting (denies)
Neuro: Confused (per daughter)
Objective Data
Data Reviewed
Vital Signs / I&O / Oxygen:
Vital Signs
Temp Pulse Resp BP Pulse Ox
97.7 F 98 28 138/48 96
03/11/25 07:27 03/11/25 06:00 03/11/25 06:00 03/11/25 06:00 03/11/25 06:00
Intake and Output
03/10/25 03/11/25 03/12/25
06:59 06:59 06:59
Intake Total 2202.0 / 2286.5 1738.3 / 1738.3
Output Total 2630 / 2630 2250 / 2250
Balance -428.0 / -343.5 -511.7 / -511.7
SaO2 [ASV] 99
SaO2 [CPAP/PSV] 98
SaO2 [A/C] 100
SaO2 96
Nasal Cannula flow liters per 2
minute
Physical Exam
General: Comfortable (more comfortable than has appeared prior; still unable to complete sentence without extra breaths )
HEENT: Normocephalic and Anicteric
Cardiovascular: Irregular Rhythm (Irregularly irregular)
Respiratory: Clear (Clear to auscultation anteriorly), Accessory Resp Muscle Use (None) and Other (O2 NC )
GI: Non Distended, Other (Colostomy bag with soft brown stool) and Other (2 SUSAN drains on right and left sides of colostomy; both with some purulent drainage, L more than R )
Neurology: Awake, Alert and Oriented
Skin: Warm, Dry and Good Color
Labs/Micro/Reports
Lab Data
03/11/25 04:02
03/10/25 03:11
Laboratory Results
03/10/25 03/11/25
18:11 05:27
APTT 117.0 H
pH 7.43
pCO2 48
pO2 78 L
HCO3 31.9 H
O2 Delivery Level
Microbiology
03/05/25 11:35 Blood/Venous Blood Culture - Final
No Growth - Final Report
03/05/25 17:11 Abdomen Anaerobic Culture - Preliminary
Culture pending. Anaerobic cultures are examined after 3
days incubation. Additional information to follow.
03/06/25 10:50 Abdomen Wound Culture - Final
Escherichia coli
Citrobacter youngae
Enterococcus faecalis
03/06/25 10:50 Abdomen Gram Stain - Final
03/05/25 17:11 Abdomen Wound Culture - Final
Escherichia coli
Citrobacter youngae
Enterococcus faecalis
03/05/25 17:11 Abdomen Gram Stain - Final
03/01/25 20:44 Blood/Venous Blood Culture - Final
Bacillus species,not anthracis
03/01/25 20:44 Blood/Venous Gram Stain - Final
--- NOTE | 2025-03-11 08:00 | PTCARENOTE ---
Received pt @ change of shift; pt. drowsy, awakens to verbal stim; ox3; flat/forgetful @ x's. Generalized weakness/deconditioned. Afib on monitor. SpO2 99% on 2LNC, shallow breaths; auscultated dim breaths sounds posteriorly; occ moist dragger cough.
Hypoactive BS, abd round/obese. SUSAN x2 w purulent drainage. Mild amt of purulent drainage from L lower abd old SUSAN site. Midline abd incision and SUSAN dressings c/d/i. Colostomy w brown/liq stool. Inc bladder; utilizes urinal @ x's. R DL PICC w
TPN @ 61mL/hr; insulin gtt per glycemic protocol- see flow sheet. #22 L FA w heparin gtt per protocol- see flow sheet. Pt. repositioned in bed; Am hygiene provided. Plan for ABD CT this AM per surgery, pt. updated. Call caroline yanes in reach.
[2025-03-11 08:22] LABS: Glucose - Point of Care 182 mg/dl (70-99)
[2025-03-11] MEDS: NOVOLOG FLEXPEN 2 UNITS SC (09:35)
[2025-03-11 09:46] LABS: Glucose - Point of Care 194 mg/dl (70-99)
[2025-03-11 10:29] LABS: Glucose - Point of Care 201 mg/dl (70-99)
--- NOTE | 2025-03-11 10:45 | W.PN.ID1 ---
Date of Service
Date of Service: March 11, 2025
Today's Communication
Continue antibiotics.
Assessment / Plan
74-year-old male with a significant past medical history including A-fib, colostomy in August 2024 for perforated diverticulitis and then underwent elective reversal of colostomy on 02/21. On 02/27 he presented to the hospital with nausea and vomiting
and was found to have free air in the abdomen and underwent ex lap, colon resection, end colostomy creation for anastomotic leak.
#Anastomotic leak / perforated viscus
#Abdominal abscesses; s/p drainage
- Cultures with E. coli, Citrobacter, Enterococcus
#Leukocytosis
- Persists
#Bacteremia with bacillus species
- contamination
Recommendations:
- Intra-abdominal cultures with E. coli, Citrobacter, Enterococcus. All isolate susceptible to Zosyn.
- Continue with Zosyn 3.375 gm IV q.6 hours (d#13 abx)
Follow WBC and temp curve
Follow drain output.
Continue with supportive measures.
May need additional modalities for drainage. Defer to Surgery.
����������������������������������������������������������
Chief Complaint
-: Leukocytosis and Other (Intra-abdominal abscesses)
Subjective / Review of Systems
Patient seen and examined. Denies pain.
Review of Systems: No Fever and No Chills
Vital Signs / Physical Exam
Vital Signs
Vital Signs
Temp Pulse Resp BP Pulse Ox
97.7 F 87 31 109/52 98
03/11/25 07:27 03/11/25 09:35 03/11/25 09:35 03/11/25 09:35 03/11/25 09:35
Physical Exam
Constitutional: No Acute Distress, Comfortable and Non-toxic
Head: Normocephalic
Cardiovascular: Irregular Rate and S1/S2; Negative S3/S4 or Peripheral Edema
Pulmonary: Clear and Non Labored; Negative Wheezes
Gastrointestinal: Soft, Non Tender and Other (Ostomy in place, 2x SUSAN tubes continue to drain purulent fluid)
Extremities: Edema; Negative Cyanosis or Erythema
Skin: Warm
Neurological: AO x 3
Psychological: Calm
Objective Data
Lab Data
Lab Results
03/11/25 04:02
PT 19.9 Sec (11.4-14.6) H 02/27/25 16:52
INR 1.67 02/27/25 16:52
APTT 117.0 Sec (23.4-35.0) H 03/11/25 05:27
Estimated Creat Clear 90 ml/min 03/10/25 03:11
Lactic Acid 1.5 mmol/L (0.7-2.0) 03/01/25 03:18
Total Bilirubin 0.5 mg/dl (0.2-1.3) 03/10/25 03:11
AST 38 U/L (17-59) 03/10/25 03:11
ALT 20 U/L (0-50) 03/10/25 03:11
Alkaline Phosphatase 219 U/L (38-126) H 03/10/25 03:11
Most recent labs reviewed.
Micro Results:
03/05/25 17:11 Anaerobic Culture - Final
Abdomen
03/05/25 11:35 Blood Culture - Final
Blood/Venous No Growth - Final Report
03/06/25 10:50 Wound Culture - Final
Abdomen Escherichia coli
Citrobacter youngae
Enterococcus faecalis
Gram Stain - Final
03/05/25 17:11 Wound Culture - Final
Abdomen Escherichia coli
Citrobacter youngae
Enterococcus faecalis
Gram Stain - Final
03/01/25 20:44 Blood Culture - Final
Blood/Venous Bacillus species,not anthracis
Gram Stain - Final
03/01/25 19:46 Blood Culture - Final
Blood/Venous No Growth - Final Report
Imaging:
03/11/2025 CT abdomen/pelvis: again seen are multiple intra-abdominal fluid collections. There has been interval placement of percutaneous drainage catheters with improvement in size of both collections although significant residual fluid
collections remain, particularly within the left upper quadrant. Please see full dictation for additional detail.
03/05/2025: CT Chest/abd/pel W Iv Contrast: Postoperative abdomen with developing intra-abdominal abscesses in the left upper quadrant and right upper quadrant of the abdomen, and smaller probable developing abscesses in the upper abdomen inferior
to the distal stomach and in the anterior pelvis deep to the anterior pelvic wall.
Small bilateral pleural effusions and bilateral lower lobe compressive atelectasis.
02/27/2025: CT Abd/pel W Iv And Oral Contrast: 1. Postoperative leak at the left colonic anastomosis, with extraluminal contrast. Large degree of pneumoperitoneum.2. Trace bilateral pleural effusions with associated probable atelectasis. Cannot rule
out superimposed left lower lobe pneumonia.
CT Scan: Image Reviewed and Report Reviewed
Care Review
Plan reviewed with: Physician (General Surgery)
--- NOTE | 2025-03-11 11:45 | PTCARENOTE ---
pt. transported via bed to CT of abd/pelv this AM; no events on transport. S/P imaging, further orders received for IR party chief. Heparin gtt placed on hold per orders- see flow sheet and NPO status initiated @ that time. Plan for IR this afternoon.
Remains of TPN and insulin gtt per glycemic protocol- see flow sheet. Pt. and daughter @ bedside, updated.
--- NOTE | 2025-03-11 12:13 | W.PN.CD ---
Today's Communication / Plan
-
- BP management - Hold Amlodipine and increase Lisinopril
- Heparin for stroke / DVT prevention
Impression / Plan
-
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
discharge on 02/25 following elective colostomy reversal for repeated perforated diverticulitis in 11/2024, found to have anastomotic leak CT imaging with pneumoperitoneum (02/27) requiring ex lap with bowel resection and end colostomy creation. He
remains in ICU in persistent Afib with RVR.
Acute abdomen / Shock
- improved, pressors off 03/07
- Likely septic with CT A/P on 03/05 showing multiple intra-abdominal abscesses, now s/p IR drain to yuliet-hepatic abscess 03/06
- New accumulation noted/ - plan for IR to tap.
- Hold heparin 3-4 hours prior. Resume post when stable.
- Continue antibiotics
Severe bradycardia with pauses
- Occurred on 03/04/2025 in the setting of Precedex, IV amiodarone, and beta-rey.
- No recurrence on telemetry
- now back on metoprolol tartrate 50mg bid (home med), and stable
Suspected permanent Afib, now with RVR this admission
- As above, he had severe bradycardia with long pauses in the setting of Precedex, IV amiodarone, and beta-rey
- Heart rates now controlled, on metoprolol tartrate 50mg bid: avg 90s
- Continue heparin drip for AC, with monitoring of Hgb
HFimpEF: acute
- Preop eval: Echo LVEF 40-45% and only mild valve disease but date of echo unclear, perhaps 07/2023.
- Cath: No obstructive CAD but date of cath uncertain, perhaps 08/2023.
- Echocardiogram 03/03/2025 with LVEF of 65%; RV appeared dilated with low normal systolic function.
- transition to PO lasix tomorrow (Going for IR for procedure today)
Permanent AF
- Rates are better controlled
- Continue Metoprolol.
HTN
-resumed home amlodipine 03/09 but had hypotension episodes.
-will hold norvasc for now.
-Increase lisinopril to 5mg BID
Acute hypoxic respiratory failure
- extubated 03/08
Postoperative anastomotic leak status post exploratory laparotomy, colon resection and creation of end colostomy:
- Management as per Surgical team; on antibiotics.
Physical Exam
Vital Signs/Labs
Vital Signs
Temp Pulse Resp BP Pulse Ox
98.2 F 82 35 121/45 99
03/11/25 11:28 03/11/25 11:00 03/11/25 11:00 03/11/25 11:00 03/11/25 11:00
03/10/25 03/11/25 03/12/25
06:59 06:59 06:59
Actual Weight 107.3 kg 108.4 kg
03/11/25 04:02
PT 19.9 Sec (11.4-14.6) H 02/27/25 16:52
INR 1.67 02/27/25 16:52
APTT 117.0 Sec (23.4-35.0) H 03/11/25 05:27
Magnesium 2.4 mg/dl (1.6-2.3) H 03/10/25 03:11
Triglycerides 85 mg/dl (10-149) 03/11/25 04:02
03/02/25 03/04/25 03/05/25
03:45 04:09 04:54
Imy-Y-Agjqtwjnzjw Pept [id number] 1980
03/07/25
03:14
Eum-J-Whzkrxekcfi Pept 482
Physical Exam
Constitutional: No acute distress and Comfortable
EENT: Anicteric and Moist mucous membranes
Cardiovascular: Rhythm/rate is irregular, JVD present and Systolic murmur present
Respiratory: Crackles Present and Rhonchi Present
GI: Soft, Non tender and Normal bowel sounds
Neuro/Psych: Alert
Data Reviewed
-
Date of Service: March 11, 2025
Medical Decision Making: Reviewed Test Results, Test Interpretation and Review of Case with other Provider
EKG: Tracing Personally Visualized and interpreted
Echo: Report Reviewed by me
X-Ray/CT/US/MRI/NUC/PET: Report Reviewed by me
Labs: Labs Reviewed by me
Old Records: Reviewed
Critical Care Time (in minutes): 35
[2025-03-11 12:15] LABS: Glucose - Point of Care 207 mg/dl (70-99)
[2025-03-11] MEDS: NORVASC PO (12:30)
[2025-03-11] MEDS: ZESTRIL PO (12:30)
[2025-03-11] MEDS: NOVOLOG FLEXPEN SC ×2 (12:30→17:01)
[2025-03-11 12:31] LABS: Blood Urea Nitrogen 54 mg/dl (9-20); Calcium 8.4 mg/dl (8.4-10.2); Carbon Dioxide 32 mmol/L (22-30); Chloride 110 mmol/L (98-107); Estimated Creatinine Clearance 73 ml/min; Glucose 203 mg/dl (70-99); Potassium 3.9 mmol/L (3.5-5.1); Sodium 145 mmol/L (135-145); eGFR > 60.00
[2025-03-11 13:16] LABS: Glucose - Point of Care 157 mg/dl (70-99)
[2025-03-11 14:04] LABS: Glucose - Point of Care 141 mg/dl (70-99)
--- NOTE | 2025-03-11 15:09 | PTCARENOTE ---
Addendum entered by Nazia Montes RN 03/11/25 16:55:
Received pt s/p IR procedure completion and pt. transported via bed back to rm [id number]; no events on transport. Drain A and B remain w purulent drainage; new Drain C w ser/sang drainage; drain output emptied upon arrival back to unit. Midline
dressing and SUSAN dressings redressed in IR s/p procedure. Family @ bedside, updated. Call caroline yanes in reach.
Original Note:
Pt. transported via bed to IR on grout machine tender, TPN, and insulin gtt per orders; awaiting report from IR. Daughter @ bedside, updated.
[2025-03-11 15:22] LABS: Glucose - Point of Care 112 mg/dl (70-99)
--- NOTE | 2025-03-11 15:49 | CM ---
IV/heparin, insulin, Zosyn. TPN. PO intake puree. Discharge POC: Acute Rehab. Referrals previously forwarded.
[2025-03-11 16:47] LABS: Glucose - Point of Care 123 mg/dl (70-99)
[2025-03-11] MEDS: LIPITOR 10 MG PO (17:35)
[2025-03-11 17:47] LABS: Glucose - Point of Care 140 mg/dl (70-99)
[2025-03-11] MEDS: NOVOLIN R INSULIN INFUSION 100 IV (18:09)
[2025-03-11] MEDS: NOVOLOG FLEXPEN 4 UNITS SC (18:24)
[2025-03-11 18:34] LABS: Glucose - Point of Care 129 mg/dl (70-99)
[2025-03-11 19:43] LABS: Glucose - Point of Care 179 mg/dl (70-99)
--- NOTE | 2025-03-11 20:00 | PTCARENOTE ---
Received pt. at 1900. Pt. in bed. Drowsy but arousable. Answering questions appropriately. Denies pain/discomfort. Afebrile. Heart rhythm sinus. Blood pressure normotensive. Currently on nasal cannula. Lungs sound diminished. PO diet is ordered.
Abdomen obese. Colostomy intact. Incontinent of urine at times. Skin as documented. Discussed plan of care with patient. Vital signs stable at this time.
[2025-03-11] MEDS: Parenteral Nutrition, Central 1460 IV (20:01)
[2025-03-11 20:44] LABS: Glucose - Point of Care 222 mg/dl (70-99)
[2025-03-11] MEDS: SEROQUEL 50 MG PO (21:09)
[2025-03-11 21:43] LABS: Glucose - Point of Care 194 mg/dl (70-99)
[2025-03-11 22:42] LABS: Glucose - Point of Care 172 mg/dl (70-99)
[2025-03-12] VITALS (37 sets, daily range): BP systolic 105–161; BP diastolic 38–74; PULSE 2–92; BMI 38.6
--- NOTE | 2025-03-12 | PTCARENOTE ---
Pt. placed on home CPAP machine shortly after 9pm. Soon after, pt. began removing CPAP device. Device placed back on patient's nose multiple times and education provided to why he needs to wear CPAP. Pt. still pulling mask off. KALEY Flores
notified. Nasal cannula placed on patient. Vital signs stable at this time.
[2025-03-12 00:43] LABS: Glucose - Point of Care 132 mg/dl (70-99)
[2025-03-12 02:44] LABS: Glucose - Point of Care 111 mg/dl (70-99)
[2025-03-12 02:56] LABS: Venous Blood Gas B.E. 8.6 mmol/L (-4 to +4); Venous Blood Gas O2 Sat % 97.9 %
[2025-03-12 02:57] LABS: Hematocrit 25.4 % (39.0-52.0); Hemoglobin 8.2 g/dL (13.0-18.0); Mean Corp Hgb Conc. 32.3 g/dL (33.0-37.0); Mean Corpuscular Volume 91.4 fL (80.0-94.0); Platelet Count 471 10^3/uL (130-400); Red Cell Dist. Width 15.3 % (11.5-14.5)
[2025-03-12 02:59] LABS: B.E. 7.7 mmol/L; HCO3 32.7 mmol/L (21-28); O2 Saturation % 99.5 % (94-98); PCO2 46 mmHg (35-48); PO2 123 mmHg (83-108)
[2025-03-12 03:10] LABS: APTT 56.4 Sec (23.4-35.0)
[2025-03-12 03:13] LABS: ALT (SGPT) 24 U/L (0-50); AST (SGOT) 30 U/L (17-59); Albumin 2.0 g/dl (3.5-5.0); Alkaline Phosphatase 153 U/L (38-126); Blood Urea Nitrogen 60 mg/dl (9-20); Calcium 8.7 mg/dl (8.4-10.2); Carbon Dioxide 33 mmol/L (22-30); Chloride 110 mmol/L (98-107); Estimated Creatinine Clearance 73 ml/min; Glucose 108 mg/dl (70-99); Magnesium 2.2 mg/dl (1.6-2.3); Potassium 3.9 mmol/L (3.5-5.1); Sodium 145 mmol/L (135-145); Total Protein 5.5 g/dl (6.3-8.2); eGFR > 60.00
[2025-03-12] MEDS: HEPARIN 25000 UNITS/250 ML IV ×2 (03:39→15:34)
--- NOTE | 2025-03-12 04:00 | PTCARENOTE ---
Pt. with multiple episodes of bradycardia into 20's. KALEY Flores called to bedside each episode. Pt. placed on Bipap. ABG drawn. EKG obtained. AM labs drawn. Heart rate recovered quickly with each episode. Currently Afib in 80s. Heparin gtt is
infusing. Blood pressure normotensive during each episode. Vital signs stable at this time.
[2025-03-12 04:10] LABS: TSH 4.01 uIU/ml (0.47-4.68)
[2025-03-12 04:34] LABS: Glucose - Point of Care 120 mg/dl (70-99)
[2025-03-12] MEDS: ZOSYN 50 IV ×4 (05:07→23:17)
[2025-03-12 06:48] LABS: Glucose - Point of Care 120 mg/dl (70-99)
--- NOTE | 2025-03-12 08:14 | W.PN.INTV ---
Today's Communication / Plan
Recommendations
- Hold metoprolol and lisinopril
- Follow-up ABG around noon
- Discontinue Seroquel
Assessment
-
Patient is a 74-year-old gentleman with history of A-fib and prior colostomy for perforated diverticulitis with subsequent elective reversal in early February. About a week later patient presented to the hospital with nausea vomiting and found to
have pneumoperitoneum. Patient had emergent exploratory laparotomy, colon resection and end colostomy creation for anastomotic leak. Patient was subsequently extubated but had to be reintubated due to continuous BiPAP need and ongoing sepsis.
Patient's initial blood cultures from 03 01 grew bacillus. Repeat cultures have been negative. Subsequently patient had another CT scan performed on 03/05 which showed multiple intra-abdominal abscesses and IR guided drainage was performed at 2
areas showing very purulent fluid. Patient has been on antibiotics and then persistent respiratory failure and shock. Business Technology Architect consultation was requested for further input.
03/11: Patient had follow-up CT abdomen pelvis showing improving but significant residual intra-abdominal abscess in addition to a new perisplenic abscess. He was taken back to IR suite and had another drain placed.
03/12 overview: Current infusions TPN, heparin and insulin. Patient currently on 1 L supplemental oxygen saturating 94%.. Not requiring any pressors. Stool noted in the ostomy bag. P.o. intake continues to be suboptimal. MAP of 82. Appears
more lethargic.
Assessment and plan.
#1. Septic shock with intra-abdominal abscesses
- s/p IR guided drainage x 2 (03/05/2025). Shock resolved
- Repeat CT 03/11, additional abscess noted, s/p IR guided drainage (03/11/2025)
- ID service on case, currently on Zosyn.
- 03/08, weaned off pressors
#2. Pneumoperitoneum due to anastomotic leak s/p exploratory laparotomy with colon resection and end colostomy creation (OR date: 02/27/2025)
- Colorectal surgery on case
- Currently colostomy in place with some output, PO intake is still suboptimal. Continue TPN infusion. FEES suggested by speech therapy service
#3. Acute respiratory failure with hypoxia and hypercapnia requiring continuous BiPAP now on mechanical ventilation (intubated 03/04/2025)
- 03/08. Patient tolerated pressure support trial well. Follow-up ABG unremarkable. Extubated to BiPAP.
- Off BIPAP now.
- Resumed patient's home CPAP.
#4. HFrEF, LVEF 40-45%
- Cardiology service on case
- Lasix transitioned to PO
#5. Atrial Fibrillation.
- Rate controlled currently
- Continue heparin infusion. Has been on beta-rey and amiodarone in the past, discontinued due to bradycardia, doing well since.
- Rapid ventricular rate noted postextubation, 1 dose of Lopressor 5 mg given with good results.
- Resumed PO metoprolol, up titrated to 50 mg bid.
- 03/12, patient again had episodes of bradycardia into 30s overnight including another episode this morning. Hold metoprolol for now. Continue telemetry monitoring.
#6. Bilateral pleural effusions
- Considering bilateral effusions, suspect underlying hypoalbuminemia and congestive heart failure contributing
- Continue diuresis as tolerated
- 03/10. POCUS showed improving Right sided pleural effusion. Hold off Thoracentesis for now.
- 03/11, F/u CXR/CT improving. Continue Lasix
#7. ICU delirium and insomnia
- Discontinued Pepcid, initiated Protonix instead
- Discussed with nursing staff, patient to sit in chair through the day, keep blinds up, family visits
- Promote sleep at night, Seroquel 50 mg given overnight, did not sleep well, appears more lethargic this morning. Discontinue Seroquel
Other medical diagnoses:
#Hyperbilirubinemia
#Hypoalbuminemia
#History of perforated diverticulitis s/p ex lap with splenic flexure takedown, drainage of intra-abdominal abscess and end colostomy creation (11/15/2024) with colostomy reversal, hepatic flexure takedown and lysis of adhesions (02/21/2025)
#Significant pauses + bradycardia likely due to Coreg given earlier on 03/04+ amiodarone drip + Lopressor in the setting of RSI given during intubation
#Hypertension
Goals of care discussion 03/12: Met with patient's daughter at bedside. They expressed their wishes to move to DNR/DNI CODE STATUS, paperwork awaited. We discussed patient's overall clinical condition. He appears more lethargic and is quite
deconditioned at 2-week [place] of hospitalization continue to require critical care. Overall prognosis guarded
DVT prophylaxis. Currently on heparin infusion.
GI prophylaxis. Continue IV Pepcid
Continue ICU level of care for this critically ill patient.
Updated family at bedside.
Critical care statement: A total of 48 minutes of critical care time was provided for this patient today. This includes management of unstable vital signs, evaluation of the patient at bedside, reviewing the patient�s pertinent medical records
including radiographs, microbiology, laboratory evaluations, and��discussion with primary team, consultants, pharmacy, nutrition, physical therapy, case management, charge nurse, critical care nursing, and respiratory therapy.
Data:
CT A/P 03/11/2025: 1. Again seen are multiple intra-abdominal fluid collection/abscesses. Interval placement of percutaneous drainage catheters within anterior left upper quadrant and right perihepatic fluid collections with improvement of both,
noting significant residual fluid collections remain, particular within the left upper quadrant. Additional fluid collections identified within the perisplenic/subdiaphragmatic space and anterior pelvis. See above.
2. Small bilateral pleural effusions with adjacent atelectasis within both lower lobes.
3. Indeterminate hyperattenuating lesion within the anterior left kidney measuring 16 mm. This likely represents a hyperdense cyst with enhancing small renal neoplasm not excluded.
4. Additional findings above.
Subjective Dataa
Subjective Data
Date of Service:
Date of Service: March 12, 2025
Chief Complaint: Business Technology Architect Follow Up
Subjective:
Patient comfortably lying in bed in no acute distress. Patient appears more lethargic
Review of Systems
Genitourinary: Other (More lethargic this morning. Unable to complete full review of system. Also mildly delirious)
Objective Data
Data Reviewed
Vital Signs / I&O / Oxygen:
Vital Signs
Temp Pulse Resp BP Pulse Ox
98.1 F 84 24 124/49 98
03/12/25 07:16 03/12/25 06:00 03/12/25 06:00 03/12/25 06:00 03/12/25 06:00
Intake and Output
03/11/25 03/12/25 03/13/25
06:59 06:59 06:59
Intake Total 1738.3 / 1818.3 2066.4 / 2066.4
Output Total 2250 / 2250 1665 / 1665
Balance -511.7 / -431.7 401.4 / 401.4
SaO2 [ASV] 99
SaO2 [CPAP/PSV] 98
SaO2 [A/C] 100
SaO2 98
Nasal Cannula flow liters per 2
minute
Physical Exam
General: Comfortable (more comfortable than has appeared prior; still unable to complete sentence without extra breaths )
HEENT: Normocephalic and Anicteric
Cardiovascular: Irregular Rhythm (Irregularly irregular)
Respiratory: Clear (Clear to auscultation anteriorly), Accessory Resp Muscle Use (None) and Other (O2 NC )
GI: Non Distended, Other (Colostomy bag with soft brown stool) and Other (2 SUSAN drains on right and left sides of colostomy; both with some purulent drainage, L more than R )
Neurology: Other (More lethargic, wakes up with stimulation)
Skin: Warm, Dry and Good Color
Labs/Micro/Reports
Lab Data
03/12/25 02:28
03/12/25 02:29
Laboratory Results
03/11/25 03/12/25 03/12/25
12:00 02:29 02:34
APTT Cancelled 56.4 H
pH 7.46 H
pCO2 46
pO2 123 H
HCO3 32.7 H
O2 Delivery Level
Microbiology
03/05/25 17:11 Abdomen Anaerobic Culture - Final
03/05/25 11:35 Blood/Venous Blood Culture - Final
No Growth - Final Report
03/06/25 10:50 Abdomen Wound Culture - Final
Escherichia coli
Citrobacter youngae
Enterococcus faecalis
03/06/25 10:50 Abdomen Gram Stain - Final
03/05/25 17:11 Abdomen Wound Culture - Final
Escherichia coli
Citrobacter youngae
Enterococcus faecalis
03/05/25 17:11 Abdomen Gram Stain - Final
[2025-03-12] MEDS: NOVOLOG FLEXPEN SC ×3 (08:32→19:22)
[2025-03-12] MEDS: DESENEX/MITRAZOL/ZEASORB 1 APPLIC TOPICAL ×2 (08:33→20:00)
[2025-03-12] MEDS: LOPRESSOR PO (08:33)
[2025-03-12] MEDS: LASIX 40 MG PO (08:33)
[2025-03-12] MEDS: NSS (PRESERVATIVE FREE) 10 ML IV (08:34)
[2025-03-12] MEDS: PROTONIX IV 40 MG IV (08:34)
[2025-03-12 08:42] LABS: Glucose - Point of Care 128 mg/dl (70-99)
--- NOTE | 2025-03-12 09:17 | W.PN.ID1 ---
Date of Service
Date of Service: March 12, 2025
Today's Communication
continue zosyn
Assessment / Plan
74-year-old male with a significant past medical history including A-fib, colostomy in August 2024 for perforated diverticulitis and then underwent elective reversal of colostomy on 02/21. On 02/27 he presented to the hospital with nausea and vomiting
and was found to have free air in the abdomen and underwent ex lap, colon resection, end colostomy creation for anastomotic leak.
#Anastomotic leak / perforated viscus
#Abdominal abscesses; s/p drainage
- Cultures with E. coli, Citrobacter, Enterococcus
#Leukocytosis
- Persists
#Bacteremia with bacillus species
- contamination
Recommendations:
- Intra-abdominal cultures with E. coli, Citrobacter, Enterococcus. All isolate susceptible to Zosyn.
- Continue with Zosyn 3.375 gm IV q.6 hours (d#14 abx)
Follow WBC and temp curve
Follow drain output - remains high
Continue with supportive measures.
May need additional modalities for drainage. Defer to Surgery.
����������������������������������������������������������
Chief Complaint
-: Leukocytosis and Other (Intra-abdominal abscesses)
Subjective / Review of Systems
afebrile
bp stable without pressors
drains with high output - copious pus from the L sided drain
Vital Signs / Physical Exam
Vital Signs
Vital Signs
Temp Pulse Resp BP Pulse Ox
98.1 F 85 24 119/45 97
03/12/25 07:16 03/12/25 09:00 03/12/25 09:00 03/12/25 09:00 03/12/25 09:10
Physical Exam
Constitutional: No Acute Distress
Cardiovascular: Regular Rate and S1/S2; Negative Murmur or Rub
Pulmonary: Clear and Symmetric; Negative Wheezes or Rales
Gastrointestinal: Soft, Non Tender, Non Distended and Normal Bowel Sounds
Skin: Warm and Dry; Negative Rash or Jaundice
Lines: Other (drains x3; purulent drainage from the left, serosanguinous from the two right draines)
Objective Data
Lab Data
Lab Results
03/12/25 02:28
03/12/25 02:29
PT 19.9 Sec (11.4-14.6) H 02/27/25 16:52
INR 1.67 02/27/25 16:52
APTT 56.4 Sec (23.4-35.0) H 03/12/25 02:29
Estimated Creat Clear 73 ml/min 03/12/25 02:29
Lactic Acid 1.5 mmol/L (0.7-2.0) 03/01/25 03:18
Total Bilirubin 0.5 mg/dl (0.2-1.3) 03/12/25 02:29
AST 30 U/L (17-59) 03/12/25 02:29
ALT 24 U/L (0-50) 03/12/25 02:29
Alkaline Phosphatase 153 U/L (38-126) H 03/12/25 02:29
Most recent labs reviewed.
Micro Results:
03/05/25 17:11 Anaerobic Culture - Final
Abdomen
03/05/25 11:35 Blood Culture - Final
Blood/Venous No Growth - Final Report
03/06/25 10:50 Wound Culture - Final
Abdomen Escherichia coli
Citrobacter youngae
Enterococcus faecalis
Gram Stain - Final
03/05/25 17:11 Wound Culture - Final
Abdomen Escherichia coli
Citrobacter youngae
Enterococcus faecalis
Gram Stain - Final
03/01/25 20:44 Blood Culture - Final
Blood/Venous Bacillus species,not anthracis
Gram Stain - Final
03/01/25 19:46 Blood Culture - Final
Blood/Venous No Growth - Final Report
Imaging:
03/11/2025 CT abdomen/pelvis: again seen are multiple intra-abdominal fluid collections. There has been interval placement of percutaneous drainage catheters with improvement in size of both collections although significant residual fluid
collections remain, particularly within the left upper quadrant. Please see full dictation for additional detail.
03/05/2025: CT Chest/abd/pel W Iv Contrast: Postoperative abdomen with developing intra-abdominal abscesses in the left upper quadrant and right upper quadrant of the abdomen, and smaller probable developing abscesses in the upper abdomen inferior
to the distal stomach and in the anterior pelvis deep to the anterior pelvic wall.
Small bilateral pleural effusions and bilateral lower lobe compressive atelectasis.
02/27/2025: CT Abd/pel W Iv And Oral Contrast: 1. Postoperative leak at the left colonic anastomosis, with extraluminal contrast. Large degree of pneumoperitoneum.2. Trace bilateral pleural effusions with associated probable atelectasis. Cannot rule
out superimposed left lower lobe pneumonia.
[2025-03-12 09:49] LABS: Glucose - Point of Care 96 mg/dl (70-99)
--- NOTE | 2025-03-12 09:55 | PTCARENOTE ---
Received pt this am on 2lnc with tpn, insulin and heparin infusing per work list. Pt have bea/afib episodes with rates as low as 20s upon start of shift. BP as charted. AM dose of metoprolol held given low hr and lisinopril held as well given
borderline low bp. Pt opens eyes, without complaint. Minimal interaction and voice a whisper. Able to take meds crushed in small amount of applesauce. CHG given and wound care completed as charted. Attempted to wean to room air, but sats only
91%, placed on 1lnc and sats 94-97%. Daughter Tammy at bedside. Asked about code status given events this morning/overnight. She said dad's paperwork report him as DNR. Her sister Mary will be in later with paperwork and code status will be
confirmed at that time. Otherwise please refer to work list.
[2025-03-12 10:11] LABS: APTT 100.5 Sec (23.4-35.0)
[2025-03-12 10:40] LABS: Glucose - Point of Care 179 mg/dl (70-99)
[2025-03-12 11:13] LABS: B.E. 7.3 mmol/L; HCO3 32.5 mmol/L (21-28); O2 Saturation % 98.0 % (94-98); PCO2 49 mmHg (35-48); PO2 88 mmHg (83-108)
[2025-03-12 11:17] LABS: O2 Therapy 1lnc
[2025-03-12] MEDS: TORADOL 15 MG IV (11:21)
[2025-03-12 11:38] LABS: Glucose - Point of Care 188 mg/dl (70-99)
--- NOTE | 2025-03-12 12:02 | PTCARENOTE ---
Addendum entered by Marj Berg RN 03/12/25 12:51:
Code Status has been changed to DNR. Purple wrist band applied per protocol.
Original Note:
Systems reviewed. Pt remains drowsy, confused. Able to give name and birthday but very slow to answer. Is slightly more awake, but easily falls asleep. Rang velazquez because he 'had to spit'. Used Yankauer with minimal secretions after mouth care
completed recently. Pt c/o abdominal pain after repositioning. Medicated as charted. Had stopped having episodes of bradycardia, but started again over the last half hour. Pt still arouses. Denies cp/dizzy/lightheaded. BP as charted. Daughter
Mary in and brought in paperwork for health care directives. Copy placed in chart. DR Medrano aware. Dr Gordon also made aware of new bradycardia/pauses and confirmed that metoprolol and lisinopril are on hold. Otherwise please see work list.
[2025-03-12] MEDS: NOVOLOG FLEXPEN 2 UNITS SC (12:31)
[2025-03-12 12:40] LABS: Glucose - Point of Care 186 mg/dl (70-99)
[2025-03-12] MEDS: TYLENOL 650 MG PO (12:41)
[2025-03-12 13:42] LABS: Glucose - Point of Care 232 mg/dl (70-99)
--- NOTE | 2025-03-12 13:52 | W.PN.GS2 ---
Addendum entered and electronically signed by Riley Baugh MD 03/12/25 15:46:
I saw and examined the patient.
The CARCASS WASHER's note was reviewed and I agree with the note.
Having ostomy function. Lethargic, answered questions appropriately.
�WBC improving; would maximize nonoperative measures at this point as any surgery would have high risk of collateral injury to nearby organs due to density of adhesions; continue IR drains to bulb suction
�Continue IV Zosyn, appreciate ID
� Appreciate primary/dynamics ax technical architect; guarded prognosis, family in agreement with DNR/DNI
Original Note:
Today's Communication / Plan
-
c/w IR drains
pureed diet as tolerated, will continue tpn
Assessment / Plan
-
Assessment: 74 yo M POD 20 s/p reversal of end colostomy POD 14 s/p ex lap, colon resection, end colostomy creation for anastomotic leak
AFVSS currently, bradycardia into the 's this am
WBC trending down
H/H drifting down, no active bleeding noted
good ostomy function
IR LUQ drain placed on 03/05/25 upsized on 03/11/25 SSF
RUQ drain placed 03/06/25 - purulent/ramirez
RLQ drain placed 03/11 - serous
polymicrobial on cultures - ID following
Plan:
-- Puree/nectar thick diet per speech recommendations
limited PO intake, cont TPN for now
ensure added BID, once tolerates ensure x2 then no further TPN
-- Abx: per ID, recs appreciated
-- continue PT/OT/ST
-- Medical management as per ICU team
Updated and discussed pt care with daughter at bedside. Returning to the OR at this juncture would be very high risk for bowel injury and injury to surrounding structures. High risk for VDRF post operatively as well. No plans for OR. Continue to
optimize management with drains, abx, etc. WBC improving. On no IV pressors. VSS. No fevers.
Subjective Data
-
Date of Service: March 12, 2025
Pt seen and examined at bedside with Dr. Izquierdo. Tired/weak but able to open eyes to answer questions. Poor po intake per nursing. Denies n/v. Comfortable.
Objective Data
-
Intake and Output
03/11/25 03/12/25 03/13/25
06:59 06:59 06:59
Intake Total 1738.3 / 1818.3 2066.4 / 2150.7 666.1 / 666.1
Output Total 2250 / 2250 1665 / 1665 420 / 420
Balance -511.7 / -431.7 401.4 / 485.7 246.1 / 246.1
Intake:
Oral fluids 120 / 120
IV fluids (Total) 468.3 / 487.3 392.4 / 415.7 159.1 / 159.1
Insulin (GP)100units/100ml Nss 69.3 / 69.3 82.4 / 84.7 12.1 / 12.1
heparin 399 / 418 310 / 331 147 / 147
IV piggybacks 50 / 50 50 / 50 50 / 50
TPN/PPN 1220 / 1281 1464 / 1525 427 / 427
Amount instilled into Drain ( 40 / 40 30 / 30
Total)
Left Abdomen Celso-Loyd 20 / 20
Right Abdomen Celso-Loyd
Right Lower Abdomen Celso- / 10
Loyd C Placed in IR
Right Lower Celso-Loyd B
Right Upper Abdomen Celso-
Loyd A
Output:
Liquid stool amount 500 / 500 100 / 100 200 / 200
Colostomy 500 / 500 100 / 100 200 / 200
Drain Output (Total) 300 / 300 965 / 965 220 / 220
Left Abdomen Celso-Loyd 660 / 660
Right Abdomen Celso-Loyd 300 / 300 245 / 245
Right Lower Abdomen Celso- 60 / 60 90 / 90
Loyd C Placed in IR
Right Lower Celso-Loyd B 110 / 110
Right Upper Abdomen Celso- 20 / 20
Loyd A
Urine, Hoffman 1150 / 1150
Urine, Voided 300 / 300 600 / 600 0 / 0
Other:
How many times incontinent 1
SMALL amount urine
How many times incontinent 1 1
MODERATE amount urine
How many times incontinent 1 1
SATURATED amount urine
Vital Signs
Temp Pulse Resp BP Pulse Ox
98.1 F 95 26 138/46 97
03/12/25 11:36 03/12/25 13:00 03/12/25 13:00 03/12/25 13:00 03/12/25 13:00
Lab Results
03/12/25 02:28
03/12/25 02:29
Calcium 8.7 mg/dl (8.4-10.2) 03/12/25 02:
Phosphorus 4.1 mg/dl (2.5-4.5) 03/12/25 02:
Phosphorus Cancelled 03/12/25 02:29
Magnesium 2.2 mg/dl (1.6-2.3) 03/12/25 02:
Magnesium Cancelled 03/12/25 02:
Total Bilirubin 0.5 mg/dl (0.2-1.3) 03/12/25 02:
Direct Bilirubin 1.9 mg/dl (0.0-0.4) H 03/02/25 03:45
AST 30 U/L (17-59) 03/12/25 02:
ALT 24 U/L (0-50) 03/12/25 02:29
Alkaline Phosphatase 153 U/L (38-126) H 03/12/25 02:29
Total Protein 5.5 g/dl (6.3-8.2) L 10/04/25 02:29
Albumin 2.0 g/dl (3.5-5.0) L 03/12/25 02:29
Physical Exam
-
Gen: NAD
Abd: soft, nt, RUQ drain with purulent drainage, LUQ drain with SSF drainage, RLQ drain with serous drainage, midline incision open areas granulating visible exposed fascial sutures concern for developing dehiscence, minimal serous drainage, LLQ old
drain site without drainage, stoma appliance with thick brown stool
Patient has a hoffman catheter: No
Patient has a central line: Yes
[2025-03-12 14:45] LABS: Glucose - Point of Care 244 mg/dl (70-99)
[2025-03-12 15:37] LABS: Glucose - Point of Care 240 mg/dl (70-99)
[2025-03-12] MEDS: NOVOLIN R INSULIN INFUSION 100 IV (15:38)
--- NOTE | 2025-03-12 15:59 | PTCARENOTE ---
Systems reviewed. Pt lethargic after earlier tylenol. Continues to have episodes of bea/pause with HR as low as 20s. Family continues bedside mccoy. Incontinent for large amount of urine, Octavia care completed. Family asking questions about
hospice/comfort. At present pt DNR. Ongoing discussions with family regarding goals of care. Currently continued on tpn/insulin/heparin. Otherwise assessment unchanged.
--- NOTE | 2025-03-12 16:00 | CHAP ---
Sy was sleeping, non-responsive. Daughter Tammy and her were present, and later Sy's sister arrived. Tammy shared that Sy is a 'positive person,' a former [employer], very loving. He has three daughters. His three years ago -
he told family that if things don't go well, he's ready to 'go to Mom.' Tammy said her father received Sacrament of the Sick recently. Emotional and spiritual support provided, along with assurance of our on-going availability.
[2025-03-12 16:22] LABS: APTT 97.9 Sec (23.4-35.0)
[2025-03-12 16:43] LABS: Glucose - Point of Care 184 mg/dl (70-99)
[2025-03-12 17:42] LABS: Glucose - Point of Care 150 mg/dl (70-99)
--- NOTE | 2025-03-12 17:47 | PTOTSP ---
ST Consult
Chart reviewed. Pt continuing to received abx for ID. Pt had an IR abscess drain change yesterday where 580mL fluid came out afterward as well as an ultrasound guided drainage of 45mL fluid removal. Seroquel was d/c due to his lethargy. Pt continues
to receive TPN. Ostomy has had output. Pt referred to surgery regarding management of current acute issues - pt deemed high risk for OR as there is high risk for bowel injury and VDRF - pt with guarded prognosis. Pt refusing CPAP at night and
experiencing bradycardia episodes. Today, pt is afebrile and on 1L NC, WBC 12.1, Hgb 8.2, BUN 60. Pt very lethargic and with minimal PO intake - pt's daughter had to stop feeding as pt stopped swallowing. Pt made DNR/DNI by family. Family inquiring
about hospice/comfort care.
Spoke with daughters and DIL outside of room - inquired about GOC. They indicated they do not wish to proceed with FEES on Friday anymore, and they do not wish to pursue any more therapy services. Educated family about comfort feeds and associated
risks, and that these decisions can be made in conjunction with the doctor about what pt can consume for pleasure/comfort with the acceptance of the risks. Family appeared to understand these risks and would like to continue with the current diet
consistencies for now.
Given the information listed above, skilled WHEEL PRESSER services are no longer indicated. WHEEL PRESSER team to sign off. Please re-consult if anything changes.
--- NOTE | 2025-03-12 18:21 | PTCARENOTE ---
Pt turned/repositioned. Incontinent small amount of urine. Mouth care done, moisturizer to lips. Agreeable to bipap, refused dinner. Resp in to place pt on bipap.
[2025-03-12] MEDS: LIPITOR PO (18:22)
[2025-03-12 18:38] LABS: Glucose - Point of Care 135 mg/dl (70-99)
[2025-03-12] MEDS: Parenteral Nutrition, Central 1460 IV (19:38)
[2025-03-12 19:40] LABS: Glucose - Point of Care 130 mg/dl (70-99)
--- NOTE | 2025-03-12 20:00 | PTCARENOTE ---
Received pt. at 1900. Pt. currently in bed. Lethargic but arousable. Nodding appropriately. Denies pain/discomfort. Afebrile. Heart rhythm sinus. Blood pressure normotensive. Currently on nasal cannula. Pt. has been rotating between nasal cannula
and bipap mask when compliant. Lungs sound diminished. Abdomen obese. Dressing over abdominal incision is dry and intact. Ostomy intact. Incontinent of urine. Skin as documented. Discussed plan of care with patient and family at bedside. Vital signs
stable at this time.
[2025-03-12 20:44] LABS: Glucose - Point of Care 128 mg/dl (70-99)
[2025-03-12 22:38] LABS: Glucose - Point of Care 153 mg/dl (70-99)
[2025-03-13] VITALS (29 sets, daily range): BP systolic 110–166; BP diastolic 41–113; PULSE 90–107; O2SAT 96–99; BMI 38.8
--- NOTE | 2025-03-13 | PTCARENOTE ---
Pt. assessment unchanged. Remains on nasal cannula. More alert now than he was earlier in shift. Vital signs stable at this time.
[2025-03-13 00:31] LABS: Glucose - Point of Care 163 mg/dl (70-99)
[2025-03-13] MEDS: HEPARIN 25000 UNITS/250 ML IV ×2 (02:35→15:03)
[2025-03-13 03:47] LABS: Glucose - Point of Care 91 mg/dl (70-99)
[2025-03-13 04:40] LABS: Glucose - Point of Care 84 mg/dl (70-99)
[2025-03-13 04:56] LABS: Hematocrit 25.7 % (39.0-52.0); Hemoglobin 8.4 g/dL (13.0-18.0); Mean Corp Hgb Conc. 32.7 g/dL (33.0-37.0); Mean Corpuscular Volume 94.1 fL (80.0-94.0); Platelet Count 514 10^3/uL (130-400); Red Cell Dist. Width 15.3 % (11.5-14.5)
--- NOTE | 2025-03-13 05:00 | PTCARENOTE ---
Pt. assessment remains unchanged. Alert. Verbally responding to questions. AM labs drawn. Vital signs stable at this time.
[2025-03-13 05:08] LABS: APTT 117.3 Sec (23.4-35.0)
[2025-03-13] MEDS: ZOSYN 50 IV ×3 (05:15→17:36)
[2025-03-13 05:37] LABS: Glucose - Point of Care 92 mg/dl (70-99)
[2025-03-13 05:47] LABS: Blood Urea Nitrogen 56 mg/dl (9-20); Calcium 8.5 mg/dl (8.4-10.2); Carbon Dioxide 31 mmol/L (22-30); Chloride 110 mmol/L (98-107); Estimated Creatinine Clearance 73 ml/min; Glucose 125 mg/dl (70-99); Magnesium 2.1 mg/dl (1.6-2.3); Potassium 3.5 mmol/L (3.5-5.1); Sodium 143 mmol/L (135-145); eGFR > 60.00
[2025-03-13] MEDS: KCL 20 MEQ PO (06:11)
[2025-03-13 06:43] LABS: Glucose - Point of Care 118 mg/dl (70-99)
[2025-03-13] MEDS: TORADOL 15 MG IV (07:20)
[2025-03-13] MEDS: NSS (PRESERVATIVE FREE) 10 ML IV (07:21)
[2025-03-13] MEDS: LASIX 40 MG PO ×2 (07:21→19:51)
[2025-03-13] MEDS: PROTONIX IV 40 MG IV (07:21)
--- NOTE | 2025-03-13 08:16 | W.PN.ID1 ---
Date of Service
Date of Service: March 13, 2025
Today's Communication
continue zosyn
Assessment / Plan
74-year-old male with a significant past medical history including A-fib, colostomy in August 2024 for perforated diverticulitis and then underwent elective reversal of colostomy on 02/21. On 02/27 he presented to the hospital with nausea and vomiting
and was found to have free air in the abdomen and underwent ex lap, colon resection, end colostomy creation for anastomotic leak.
#Anastomotic leak / perforated viscus
#Abdominal abscesses; s/p drainage
- Cultures with E. coli, Citrobacter, Enterococcus
#Leukocytosis
- Persists
#Bacteremia with bacillus species
- contamination
Recommendations:
- Intra-abdominal cultures with E. coli, Citrobacter, Enterococcus. All isolate susceptible to Zosyn.
- Continue with Zosyn 3.375 gm IV q.6 hours (d#15 abx)
Follow WBC and temp curve
Follow drain output - remains high
Continue with supportive measures.
May need additional modalities for drainage. Defer to Surgery.
����������������������������������������������������������
Chief Complaint
-: Leukocytosis and Other (Intra-abdominal abscesses)
Subjective / Review of Systems
afebrile
bp remains stable,
ongoing high output from the drains
Vital Signs / Physical Exam
Vital Signs
Vital Signs
Temp Pulse Resp BP Pulse Ox
98 F 94 22 145/54 97
03/13/25 07:39 03/13/25 06:30 03/13/25 06:30 03/13/25 06:00 03/13/25 06:30
Physical Exam
Constitutional: No Acute Distress
Cardiovascular: Regular Rate and S1/S2; Negative Murmur or Rub
Pulmonary: Clear and Symmetric; Negative Wheezes or Rales
Gastrointestinal: Soft, Non Tender, Non Distended and Normal Bowel Sounds
Skin: Warm and Dry; Negative Rash or Jaundice
Lines: Other (L sided drain remains purulent, right drains becoming clear)
Objective Data
Lab Data
Lab Results
03/13/25 04:38
03/13/25 04:38
PT 19.9 Sec (11.4-14.6) H 02/27/25 16:52
INR 1.67 02/27/25 16:52
APTT 117.3 Sec (23.4-35.0) H 03/13/25 04:38
Estimated Creat Clear 73 ml/min 03/13/25 04:38
Lactic Acid 1.5 mmol/L (0.7-2.0) 03/01/25 03:18
Total Bilirubin 0.5 mg/dl (0.2-1.3) 03/12/25 02:29
AST 30 U/L (17-59) 03/12/25 02:29
ALT 24 U/L (0-50) 03/12/25 02:29
Alkaline Phosphatase 153 U/L (38-126) H 03/12/25 02:29
Most recent labs reviewed.
Micro Results:
03/05/25 17:11 Anaerobic Culture - Final
Abdomen
03/05/25 11:35 Blood Culture - Final
Blood/Venous No Growth - Final Report
03/06/25 10:50 Wound Culture - Final
Abdomen Escherichia coli
Citrobacter youngae
Enterococcus faecalis
Gram Stain - Final
03/05/25 17:11 Wound Culture - Final
Abdomen Escherichia coli
Citrobacter youngae
Enterococcus faecalis
Gram Stain - Final
03/01/25 20:44 Blood Culture - Final
Blood/Venous Bacillus species,not anthracis
Gram Stain - Final
03/01/25 19:46 Blood Culture - Final
Blood/Venous No Growth - Final Report
Imaging:
03/11/2025 CT abdomen/pelvis: again seen are multiple intra-abdominal fluid collections. There has been interval placement of percutaneous drainage catheters with improvement in size of both collections although significant residual fluid
collections remain, particularly within the left upper quadrant. Please see full dictation for additional detail.
03/05/2025: CT Chest/abd/pel W Iv Contrast: Postoperative abdomen with developing intra-abdominal abscesses in the left upper quadrant and right upper quadrant of the abdomen, and smaller probable developing abscesses in the upper abdomen inferior
to the distal stomach and in the anterior pelvis deep to the anterior pelvic wall.
Small bilateral pleural effusions and bilateral lower lobe compressive atelectasis.
02/27/2025: CT Abd/pel W Iv And Oral Contrast: 1. Postoperative leak at the left colonic anastomosis, with extraluminal contrast. Large degree of pneumoperitoneum.2. Trace bilateral pleural effusions with associated probable atelectasis. Cannot rule
out superimposed left lower lobe pneumonia.
[2025-03-13] MEDS: NOVOLOG FLEXPEN SC (08:38)
[2025-03-13 08:42] LABS: Glucose - Point of Care 155 mg/dl (70-99)
[2025-03-13] MEDS: DESENEX/MITRAZOL/ZEASORB 1 APPLIC TOPICAL ×2 (08:51→19:50)
[2025-03-13] MEDS: LOPRESSOR 12.5 MG PO ×2 (08:52→19:52)
[2025-03-13] MEDS: ZESTRIL 5 MG PO (08:52)
[2025-03-13] MEDS: TYLENOL 650 MG PO ×2 (08:53→13:12)
--- NOTE | 2025-03-13 09:00 | W.PN.CD ---
Today's Communication / Plan
-
- Gradual improvement.
- Restarting metoprolol and changing lisinopril from 5 mg once a day to 2.5 mg twice a day.
- Continue diuresis with Lasix. As tolerated. If p.o. could not be tolerated, can be switched to IV
Impression / Plan
-
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
discharge on 02/25 following elective colostomy reversal for repeated perforated diverticulitis in 11/2024, found to have anastomotic leak CT imaging with pneumoperitoneum (02/27) requiring ex lap with bowel resection and end colostomy creation. He
remains in ICU in persistent Afib with RVR.
Acute abdomen / Shock
- improved, pressors off 03/07
- Likely septic with CT A/P on 03/05 showing multiple intra-abdominal abscesses, now s/p IR drain to yuliet-hepatic abscess 03/06
- Strips. Purulent fluid By IR and another drain placed on 03/12/25
- Continue antibiotics
- Treatment as per legal document assistant and general surgery
- Still on TPN
Severe bradycardia with pauses
- Occurred on 03/04/2025 in the setting of Precedex, IV amiodarone, and beta-rey.
- No recurrence on telemetry
- Severe bradycardia noted and metoprolol dose was reduced to 12.5 mg twice a day. Was held last night due to bradycardia again.
- Resuming it today
Suspected permanent Afib, now with RVR this admission
- As above, he had severe bradycardia with long pauses in the setting of Precedex, IV amiodarone, and beta-rey
- Heart rates now controlled, on metoprolol tartrate 50mg bid: avg 90s
- Continue heparin drip for AC, with monitoring of Hgb
HFimpEF: acute
- Preop eval: Echo LVEF 40-45% and only mild valve disease but date of echo unclear, perhaps 07/2023.
- Cath: No obstructive CAD but date of cath uncertain, perhaps 08/2023.
- Echocardiogram 03/03/2025 with LVEF of 65%; RV appeared dilated with low normal systolic function.
- Diuresis as tolerated. Currently Lasix is p.o. now.
Permanent AF
- Rates are better controlled
- Continue Metoprolol. Dose reduced and restarted now at 12.5 mg p.o. twice a day
HTN
-resumed home amlodipine 03/09 but had hypotension episodes.
-will hold norvasc for now.
- Lisinopril was held due to hypotension. Blood pressure is improved now. We will resume at 2.5 mg twice a day.
Acute hypoxic respiratory failure
- extubated 03/08
Postoperative anastomotic leak status post exploratory laparotomy, colon resection and creation of end colostomy:
- Management as per Surgical team; on antibiotics.
Physical Exam
Vital Signs/Labs
Vital Signs
Temp Pulse Resp BP Pulse Ox
98 F 100 22 148/59 99
03/13/25 07:39 03/13/25 08:30 03/13/25 08:30 03/13/25 08:00 03/13/25 08:30
03/12/25 03/13/25 03/14/25
06:59 06:59 06:59
Actual Weight 108.4 kg 109 kg
03/13/25 04:38
03/13/25 04:38
PT 19.9 Sec (11.4-14.6) H 02/27/25 16:52
INR 1.67 02/27/25 16:52
APTT 117.3 Sec (23.4-35.0) H 03/13/25 04:38
Magnesium 2.1 mg/dl (1.6-2.3) 03/13/25 04:38
Triglycerides 85 mg/dl (10-149) 03/11/25 04:02
TSH 4.01 uIU/ml (0.47-4.68) 03/12/25 02:27
03/02/25 03/04/25 03/05/25
03:45 04:09 04:54
Ork-P-Rrsqgpiydrc Pept 3370 3260 1980
03/07/25
03:14
Vnl-S-Hqmexjzhzcb Pept 482
Physical Exam
Constitutional: No acute distress and Comfortable
EENT: Anicteric and Moist mucous membranes
Cardiovascular: Rhythm/rate is irregular, Pedal edema present, JVD present and Systolic murmur present
Respiratory: Respiratory effort normal and Crackles Present
GI: Distention absent
Neuro/Psych: Alert and Motor deficits absent
Data Reviewed
-
Date of Service: March 13, 2025
Medical Decision Making: Reviewed Test Results, Test Interpretation and Review of Case with other Provider
EKG: Tracing Personally Visualized and interpreted
Echo: Report Reviewed by me
Labs: Labs Reviewed by me
Old Records: Reviewed
Critical Care Time (in minutes): 32
--- NOTE | 2025-03-13 10:18 | W.PN.INTV ---
Today's Communication / Plan
Recommendations
- Resume lisinopril at a reduced dose of 5 mg daily
- Resume metoprolol at reduced dose of 12.5 mg twice daily
- Increase Lasix to 40 mg p.o. twice daily
Assessment
-
Patient is a 74-year-old gentleman with history of A-fib and prior colostomy for perforated diverticulitis with subsequent elective reversal in early February. About a week later patient presented to the hospital with nausea vomiting and found to
have pneumoperitoneum. Patient had emergent exploratory laparotomy, colon resection and end colostomy creation for anastomotic leak. Patient was subsequently extubated but had to be reintubated due to continuous BiPAP need and ongoing sepsis.
Patient's initial blood cultures from 03 01 grew bacillus. Repeat cultures have been negative. Subsequently patient had another CT scan performed on 03/05 which showed multiple intra-abdominal abscesses and IR guided drainage was performed at 2
areas showing very purulent fluid. Patient has been on antibiotics and then persistent respiratory failure and shock. Divinity Professor consultation was requested for further input.
03/11: Patient had follow-up CT abdomen pelvis showing improving but significant residual intra-abdominal abscess in addition to a new perisplenic abscess. He was taken back to IR suite and had another drain placed.
03/13 overview: Current infusions TPN, heparin and insulin. Patient currently on 1 L supplemental oxygen saturating 98%. Not requiring any pressors. Stool noted in the ostomy bag. P.o. intake continues to be suboptimal. MAP of 83. Patient more
alert and interactive today.
Assessment and plan.
#1. Septic shock with intra-abdominal abscesses
- s/p IR guided drainage x 2 (03/05/2025). Shock resolved
- Repeat CT 03/11, additional abscess noted, s/p IR guided drainage (03/11/2025)
- ID service on case, currently on Zosyn.
- 03/08, weaned off pressors
#2. Pneumoperitoneum due to anastomotic leak s/p exploratory laparotomy with colon resection and end colostomy creation (OR date: 02/27/2025)
- Colorectal surgery on case
- Currently colostomy in place with stool noted in the bag, PO intake is still suboptimal. Continue TPN infusion. FEES suggested by speech therapy service
#3. Acute respiratory failure with hypoxia and hypercapnia requiring continuous BiPAP now on mechanical ventilation (intubated 03/04/2025)
- 03/08. Patient tolerated pressure support trial well. Follow-up ABG unremarkable. Extubated to BiPAP.
- Off BIPAP now.
- Resumed patient's home CPAP at night.
#4. HFrEF, LVEF 40-45%
- Cardiology service on case
- Lasix transitioned to PO. Starting to develop extremity edema, changed to Lasix 40 mg p.o. twice daily
#5. Atrial Fibrillation.
- Rate controlled currently
- Continue heparin infusion. Had been on beta-rey and amiodarone in the past, discontinued due to bradycardia, doing well since.
- Rapid ventricular rate noted postextubation, 1 dose of Lopressor 5 mg given with good results.
- Resumed PO metoprolol, up titrated to 50 mg bid.
- 03/12, patient again had episodes of bradycardia into 30s overnight leading to Metoprolol being held
- Resume Metoprolol at reduced dose of 12.5 mg PO BID
#6. Bilateral pleural effusions
- Considering bilateral effusions, suspect underlying hypoalbuminemia and congestive heart failure contributing
- Continue diuresis as tolerated
- 03/10. POCUS showed improving Right sided pleural effusion. Hold off Thoracentesis for now.
- 03/11, F/u CXR/CT improving. Continue Lasix
#7. ICU delirium and insomnia
- Discontinued Pepcid, initiated Protonix instead
- Discussed with nursing staff, patient to sit in chair through the day, keep blinds up, family visits
- Promote sleep at night, add nightly melatonin
Other medical diagnoses:
#Hyperbilirubinemia
#Hypoalbuminemia
#History of perforated diverticulitis s/p ex lap with splenic flexure takedown, drainage of intra-abdominal abscess and end colostomy creation (11/15/2024) with colostomy reversal, hepatic flexure takedown and lysis of adhesions (02/21/2025)
#Significant pauses + bradycardia likely due to Coreg given earlier on 03/04+ amiodarone drip + Lopressor in the setting of RSI given during intubation
#Hypertension
Goals of care discussion 03/12: Met with patient's daughter at bedside. They expressed their wishes to move to DNR/DNI CODE STATUS. We discussed patient's overall clinical condition. He appeared more lethargic and is quite deconditioned at 2-week
francisco of hospitalization/ continues to require critical care. Overall prognosis guarded. Code status updated to DNR/DNI.
DVT prophylaxis. Currently on heparin infusion.
GI prophylaxis. Continue IV Pepcid
Continue ICU level of care for this critically ill patient.
Critical care statement: A total of 46 minutes of critical care time was provided for this patient today. This includes management of unstable vital signs, evaluation of the patient at bedside, reviewing the patient�s pertinent medical records
including radiographs, microbiology, laboratory evaluations, and��discussion with primary team, consultants, pharmacy, nutrition, physical therapy, case management, charge nurse, critical care nursing, and respiratory therapy.
Data:
CT A/P 03/11/2025: 1. Again seen are multiple intra-abdominal fluid collection/abscesses. Interval placement of percutaneous drainage catheters within anterior left upper quadrant and right perihepatic fluid collections with improvement of both,
noting significant residual fluid collections remain, particular within the left upper quadrant. Additional fluid collections identified within the perisplenic/subdiaphragmatic space and anterior pelvis. See above.
2. Small bilateral pleural effusions with adjacent atelectasis within both lower lobes.
3. Indeterminate hyperattenuating lesion within the anterior left kidney measuring 16 mm. This likely represents a hyperdense cyst with enhancing small renal neoplasm not excluded.
4. Additional findings above.
Subjective Dataa
Subjective Data
Date of Service:
Date of Service: March 13, 2025
Chief Complaint: Divinity Professor Follow Up
Subjective:
Patient comfortably lying in bed in no acute distress.
Review of Systems
Genitourinary: Other (No new symptoms reported over last 24 hours.)
Objective Data
Data Reviewed
Vital Signs / I&O / Oxygen:
Vital Signs
Temp Pulse Resp BP Pulse Ox
98 F 80 20 129/67 99
03/13/25 07:39 03/13/25 10:00 03/13/25 10:00 03/13/25 10:00 03/13/25 10:00
Intake and Output
03/12/25 03/13/25 03/14/25
06:59 06:59 06:59
Intake Total 2066.4 / 2150.7 2180.6 / 2261.6 354 / 354
Output Total 1765 / 1765 890 / 890
Balance 301.4 / 385.7 1290.6 / 1371.6 354 / 354
SaO2 [ASV] 99
SaO2 [CPAP/PSV] 98
SaO2 [A/C] 100
SaO2 99
Nasal Cannula flow liters per 1
minute
Physical Exam
General: Comfortable (more comfortable than has appeared prior; still unable to complete sentence without extra breaths )
HEENT: Normocephalic and Anicteric
Cardiovascular: Irregular Rhythm (Irregularly irregular) and Peripheral Edema (Starting to develop pedal edema again)
Respiratory: Clear (Clear to auscultation anteriorly), Accessory Resp Muscle Use (None) and Other (O2 NC )
GI: Non Distended, Other (Colostomy bag with soft brown stool) and Other (2 SUSAN drains on right and left sides of colostomy; both with some purulent drainage, L more than R )
Neurology: Other (More lethargic, wakes up with stimulation)
Skin: Warm, Dry and Good Color
Labs/Micro/Reports
Lab Data
03/13/25 04:38
03/13/25 04:38
Laboratory Results
03/12/25 03/12/25 03/13/25
11:08 15:57 04:38
APTT 97.9 H 117.3 H
pH 7.43
pCO2 49 H
pO2 88
HCO3 32.5 H
O2 Delivery Level 1lnc
Microbiology
03/05/25 17:11 Abdomen Anaerobic Culture - Final
03/05/25 11:35 Blood/Venous Blood Culture - Final
No Growth - Final Report
--- NOTE | 2025-03-13 10:42 | CM ---
Pt remains on IV Heparin, Insulin, Zosyn and TPN. Tolerating pureed diet. Alternates between nasal cannula and BiPAP.
Plan for acute rehab once medically stable. Referrals previously sent.
[2025-03-13 10:44] LABS: Glucose - Point of Care 232 mg/dl (70-99)
--- NOTE | 2025-03-13 10:47 | PTCARENOTE ---
Blood sugar elevated after breakfast, restarted glycemic per protocol. PTT sent to eval heparin drip dosing
[2025-03-13 11:02] LABS: APTT 113.3 Sec (23.4-35.0)
[2025-03-13 11:34] LABS: Glucose - Point of Care 268 mg/dl (70-99)
--- NOTE | 2025-03-13 11:58 | PTCARENOTE ---
Pt assisted oob to chair with assist of 2 using a walker. C/o pain to l upper bong drain. Discussed with Eva Jimenez who will add oral pain medicine as pt is not due for any medications at this time. TPN will continue for tonight. Ordered lunch
for pt. Call velazquez in reach. No needs at this time.
[2025-03-13] MEDS: NOVOLOG FLEXPEN 4 UNITS SC ×2 (12:32→17:35)
[2025-03-13 12:42] LABS: Glucose - Point of Care 257 mg/dl (70-99)
[2025-03-13 13:30] LABS: Glucose - Point of Care 237 mg/dl (70-99)
--- NOTE | 2025-03-13 14:25 | W.PN.GS2 ---
Addendum entered and electronically signed by Riley Baugh MD 03/13/25 19:41:
I saw and examined the patient.
The ICT BUSINESS ANALYST's note was reviewed and I agree with the note.
Original Note:
Today's Communication / Plan
-
c/w drains and abx
c/w TPN
Assessment / Plan
-
Assessment: 74 yo M POD 21 s/p reversal of end colostomy POD 15 s/p ex lap, colon resection, end colostomy creation for anastomotic leak
AFVSS mild tachycardia
WBC continues trending down
H/H drifting down, no active bleeding noted
good ostomy function
LUQ drain placed on 03/05/25 upsized on 03/11/25 seropurulent fluid noted
RUQ drain placed 03/06/25 - purulent/ramirez
RLQ drain placed 03/11 - serous
polymicrobial on cultures - ID following
Plan:
-- Puree/nectar thick diet with fortified pudding per speech recommendations
limited PO intake, cont TPN for now
once taking in more orally will be able to d/c tpn
-- Abx: per ID, recs appreciated
-- continue PT/OT/ST
-- Local wound care with wet to dry dressing, wound care consulted to follow
-- Medical management as per ICU team
Continue to optimize management with drains, abx, etc,
Subjective Data
-
Date of Service: March 13, 2025
Pt seen and examined at bedside. OOB to chair. Tolerating more PO intake today. Alert, communicative but voice very hoarse/weak. Feels he isn't eating very much yet but overall eating more than previous.
Objective Data
-
Intake and Output
03/12/25 03/13/25 03/14/25
06:59 06:59 06:59
Intake Total 2066.4 / 2150.7 2180.6 / 2261.6 1150.5 / 1150.5
Output Total 1765 / 1765 890 / 890 520 / 520
Balance 301.4 / 385.7 1290.6 / 1371.6 630.5 / 630.5
Intake:
Oral fluids 120 / 120 100 / 100 400 / 400
IV fluids (Total) 392.4 / 415.7 597.6 / 617.6 182.5 / 182.5
Insulin (GP)100units/100ml Nss 82.4 / 84.7 94.6 / 94.6 24 / 24
heparin 310 / 331 503 / 523 158.5 / 158.5
IV piggybacks 50 / 50 50 / 50 50 / 50
TPN/PPN 1464 / 1525 1403 / 1464 488 / 488
Amount instilled into Drain ( 40 / 40 30 / 30 30 / 30
Total)
Left Abdomen Celso-Loyd 20
Right Abdomen Celso-Loyd
Right Lower Abdomen Celso- 10
Loyd C Placed in IR
Right Lower Celso-Loyd B
Right Upper Abdomen Celso-
Loyd A
Output:
Liquid stool amount 200 / 200 300 / 300
Colostomy 200 / 200 300 / 300
Drain Output (Total) 965 / 965 590 / 590 95 / 95
Left Abdomen Celso-Loyd 660 / 660
Right Abdomen Celso-Loyd 245 / 245
Right Lower Abdomen Celso- 60 / 60 200 / 200 40 / 40
Loyd C Placed in IR
Right Lower Celso-Loyd B 290 / 290 35 / 35
Right Upper Abdomen Celso- 100 / 100 20 / 20
Loyd A
Urine, Voided 600 / 600 0 / 0 425 / 425
Other:
How many times incontinent 1 1
SMALL amount urine
How many times incontinent 1 1
MODERATE amount urine
How many times incontinent 1 1 1
SATURATED amount urine
Number of approximated MODERATE 1
amounts of urine
Vital Signs
Temp Pulse Resp BP Pulse Ox
98 F 105 25 166/62 98
03/13/25 11:20 03/13/25 13:00 03/13/25 13:00 03/13/25 13:00 03/13/25 13:29
Lab Results
03/13/25 04:38
03/13/25 04:38
Calcium 8.5 mg/dl (8.4-10.2) 03/13/25 04:38
Phosphorus 4.1 mg/dl (2.5-4.5) 03/12/25 02:29
Phosphorus Cancelled 03/12/25 02:29
Magnesium 2.1 mg/dl (1.6-2.3) 03/13/25 04:38
Total Bilirubin 0.5 mg/dl (0.2-1.3) 03/12/25 02:29
Direct Bilirubin 1.9 mg/dl (0.0-0.4) H 03/02/25 03:45
AST 30 U/L (17-59) 03/12/25 02:29
ALT 24 U/L (0-50) 03/12/25 02:29
Alkaline Phosphatase 153 U/L (38-126) H 03/12/25 02:29
Total Protein 5.5 g/dl (6.3-8.2) L 03/12/25 02:29
Albumin 2.0 g/dl (3.5-5.0) L 03/12/25 02:29
Physical Exam
-
Gen: NAD
Abd: soft, nt, RUQ drain with purulent drainage, LUQ drain with seropurulent drainage, RLQ drain with serous drainage, midline incision open areas granulating visible exposed fascial sutures concern for developing dehiscence, minimal serous
drainage, LLQ old drain site without drainage, stoma appliance with thick brown stool
Patient has a hoffman catheter: No
Patient has a central line: Yes
[2025-03-13 14:39] LABS: Glucose - Point of Care 181 mg/dl (70-99)
[2025-03-13] MEDS: ROXICODONE 5 MG PO ×2 (15:42→21:57)
[2025-03-13 15:43] LABS: Glucose - Point of Care 149 mg/dl (70-99)
--- NOTE | 2025-03-13 15:45 | PTCARENOTE ---
Systems reviewed. Pt had brief episode of bradycardia with assisting to turn to l side. Recovered without intervention. Pt reported he was holding his breath with turning and no symptoms with event. Otherwise no changes.
[2025-03-13 16:41] LABS: Glucose - Point of Care 137 mg/dl (70-99)
[2025-03-13] MEDS: LIPITOR 10 MG PO (17:31)
[2025-03-13] MEDS: NOVOLIN R INSULIN INFUSION 100 IV (17:31)
[2025-03-13 17:45] LABS: Glucose - Point of Care 125 mg/dl (70-99)
[2025-03-13 18:04] LABS: APTT 121.6 Sec (23.4-35.0)
[2025-03-13 18:42] LABS: Glucose - Point of Care 121 mg/dl (70-99)
[2025-03-13] MEDS: Parenteral Nutrition, Central 1460 IV (20:44)
[2025-03-13 20:50] LABS: Glucose - Point of Care 171 mg/dl (70-99)
--- NOTE | 2025-03-13 21:30 | PTCARENOTE ---
Report received from previous shift RN [id number]. Pt in bed with family visiting at bedside. Pt AAO2-3, forgetful to time occasionally, flat/withdrawn affect. Generalized weakness noted. Lung sounds are throughout, shallow respirations,
cough/deep breathing encouraged, pox 93-98% on 1L O2 via nasal cannula. Telemetry rhythm reveals Afib, HR 90-100's, generalized anasarca noted, b/l lower extremity edema R>L, palpable peripheral pulses present, knee high SCDs in place per order.
+BS, abdomen round/obese. Ostomy w soft brown stool output. Pt has [address]: (A) R abdomen w scant amount serous output, (B) R lower abdomen w purulent output and (C) L abdomen w purulent output--all drains irrigated earlier in day per
order. Abdominal wound and SUSAN drain sites with dressings intact, changed per order earlier in day. Tolerating oral diet, however, pt admits to low appetite. Pt on continuous lateral rotation bed; discussed w ERNIE Hein, order for percussion d/c'd,
manually repositioning pt Q2H for skin integrity. L FA int flushed and patent, received w Heparin infusion per protocol (1850 units/hr). Next PTT due @ 0030. R DL PICC received w Insulin infusion per critical care glycemic protocol (2.3 units/hr)
via purple lumen and TPN per order via white lumen. Call velazquez within reach, safe environment maintained. Will monitor closely.
[2025-03-13] MEDS: MELATONIN 5 MG PO (21:57)
[2025-03-13] MEDS: ZESTRIL 2.5 MG PO (21:58)
[2025-03-13 22:42] LABS: Glucose - Point of Care 149 mg/dl (70-99)
[2025-03-14] VITALS (25 sets, daily range): BP systolic 110–136; BP diastolic 48–69; PULSE 99; O2SAT 97; BMI 38.7
[2025-03-14] MEDS: ZOSYN 50 IV ×5 (00:46→23:40)
[2025-03-14] MEDS: TORADOL 15 MG IV (00:50)
[2025-03-14] MEDS: FLUSH (NSS) 2 FLUSH IV (00:51)
[2025-03-14 00:56] LABS: Glucose - Point of Care 142 mg/dl (70-99)
[2025-03-14 01:05] LABS: APTT 107.7 Sec (23.4-35.0)
--- NOTE | 2025-03-14 01:11 | PTCARENOTE ---
Pt was placed on his cpap earlier in shift by RT, pt tolerating. Complete CHG bath provided. Pt requested PRN pain medication for L sided abdominal discomfort, Roxicodone administered at 2157 with good relief. Pt requested additional pain medication
at 0050, PRN Toradol administered. Pt sleeping intermittently when undisturbed. Continuing glycemic protocol, accuchecks Q2H, see flowsheet for full details. PTT sent per protocol, awaiting lab results. No change in pt assessment. Will continue to
monitor.
[2025-03-14 02:54] LABS: Glucose - Point of Care 107 mg/dl (70-99)
[2025-03-14 03:47] LABS: Glucose - Point of Care 120 mg/dl (70-99)
[2025-03-14] MEDS: HEPARIN 25000 UNITS/250 ML IV ×2 (03:55→16:26)
[2025-03-14 05:47] LABS: Hematocrit 26.0 % (39.0-52.0); Hemoglobin 8.3 g/dL (13.0-18.0); Mean Corp Hgb Conc. 31.9 g/dL (33.0-37.0); Mean Corpuscular Volume 94.9 fL (80.0-94.0); Platelet Count 518 10^3/uL (130-400); Red Cell Dist. Width 15.1 % (11.5-14.5)
[2025-03-14 06:02] LABS: ALT (SGPT) 31 U/L (0-50); AST (SGOT) 28 U/L (17-59); Albumin 2.1 g/dl (3.5-5.0); Alkaline Phosphatase 148 U/L (38-126); Blood Urea Nitrogen 49 mg/dl (9-20); Calcium 8.6 mg/dl (8.4-10.2); Carbon Dioxide 34 mmol/L (22-30); Chloride 108 mmol/L (98-107); Estimated Creatinine Clearance 81 ml/min; Glucose 138 mg/dl (70-99); Magnesium 2.1 mg/dl (1.6-2.3); Potassium 4.1 mmol/L (3.5-5.1); Sodium 142 mmol/L (135-145); Total Protein 5.7 g/dl (6.3-8.2); Triglycerides 76 mg/dl (10-149); eGFR > 60.00
--- NOTE | 2025-03-14 06:39 | PTCARENOTE ---
Pt slept for brief periods throughout the shift. No change in pt assessment. Continuing glycemic protocol. Will continue to monitor closely.
[2025-03-14 06:44] LABS: Glucose - Point of Care 147 mg/dl (70-99)
[2025-03-14 06:56] LABS: APTT 103.4 Sec (23.4-35.0)
[2025-03-14 07:43] LABS: Glucose - Point of Care 127 mg/dl (70-99)
[2025-03-14] MEDS: PROTONIX IV 40 MG IV (07:48)
[2025-03-14] MEDS: ZESTRIL 2.5 MG PO ×2 (07:48→20:33)
[2025-03-14] MEDS: LOPRESSOR 12.5 MG PO ×2 (07:48→20:33)
[2025-03-14] MEDS: LASIX 40 MG PO ×2 (07:49→20:33)
[2025-03-14] MEDS: NOVOLOG FLEXPEN SC (07:52)
[2025-03-14] MEDS: ROXICODONE 5 MG PO (07:54)
[2025-03-14] MEDS: DESENEX/MITRAZOL/ZEASORB 1 APPLIC TOPICAL ×2 (07:54→20:34)
--- NOTE | 2025-03-14 07:59 | W.PN.INTV ---
Today's Communication / Plan
Recommendations
- Continue ICU level care today, consider IMU downgrade tmrw if off insulin drip
- Puree diet, add thickened ensure x2; attempt to discontinue TPN pending ensure; reconsult SLT for potential FEES; currently on insulin 1.5u/hr
- Continue Zosyn 3.375 q6h (03/10-)
- Monitor drain output
- Encourage OOB, PT/OT, incentive spirometry
- CPAP at night
- Wean off O2 NC during day (1L O2 today)
- Lasix PO 40mg bid
- Metoprolol 12.5mg bid
- Lisinopril 2.5mg daily
- Heparin IV
- 10mg atorvastatin daily
- 5mg melatonin nightly
Assessment
-
Pt is a 74-year-old male with a pmh notable for afib (on eliquis), HFpEF, HTN, and diverticulitis who p/w L-sided abdominal pain, vomiting, & chills in the s/o recent ex lap for perforated diverticulitis & formation of end colostomy, followed by
colostomy reversal on 02/21/25. Found on CT a/p to have postoperative leak at the left colonic anastomosis site with extraluminal contrast, with a large degree of pneumoperitoneum (02/27). Gen surg performed exlap w colon resection and creation of an
end colostomy (02/27). Patient remained intubated and was transferred to the ICU postoperatively. Systems Planner services consulted for additional management/recommendations. Plan/course as below.
Overview of ICU course: Patient was intubated for 1 day then extubated to BiPAP. However, patient was unable to be successfully weaned from BiPAP, experiencing episodes of hypercapnia when trialing off. Thought to be combination of
atelectasis/poor inspiratory ability in setting of ongoing sepsis/intraabdominal infection, as well as cardiopulmonary volume overload, with component of symptomatic A-fib with RVR. Given inability to wean from BiPAP, patient was reintubated on
03/04. CT scan on 03/05 demonstrated multiple intra-abdominal abscesses; IR guided drainage yielded purulent fluid from 2 areas. Patient with [address]. Extubated on 03/08. CT 03/11 demonstrated mild decrease of intraabdominal
abscesses with drains but persistence of significant fluid collections, with new collections in perisplenic/subdiaphragmatic space. 03/11 IR placed RLQ drain & upsized LUQ drain. 03/12 GOC: code status changed to DNR/DNI.
#Intra-abdominal abscesses
#Transient bacteremia in setting of colonic anastomotic leak
#Septic shock, resolved
Patient blood culture 03/01 positive for GPC bacilli. Repeat blood cultures without growth. Patient s/p Zosyn (02/27-03/07); vanc (03/06-03/10), meropenem (03/07-03/10). Had been afebrile with WBCs trending down through 03/04. 03/05 CT scan demonstrated
intra-abdominal abscesses ('left upper quadrant and right upper quadrant of the abdomen, and smaller probable developing abscesses in the upper abdomen inferior to the distal stomach and in the anterior pelvis deep to the anterior pelvic wall'). On
03/05 & 03/06, IR drained purulent fluid from left upper quadrant and right perihepatic space. Patient spiked fever to 100.6 on 03/07 afternoon. Off pressors on 03/08. Wound cx: e coli, second GNB, enterococcus sp. Susceptibilities returned. CT ap
(03/11): Multiple intra-abdominal fluid collection/abscesses. Interval placement of percutaneous drainage catheters within anterior left upper quadrant and right perihepatic fluid collections with improvement of both, noting significant residual
fluid collections remain, particular within the left upper quadrant. Additional fluid collections identified within the perisplenic/subdiaphragmatic space and anterior pelvis.' IR placed additional RLQ drain (total 3) on 03/11.
Today: Afebrile. WBC: 26>>>12.2>16.4>>12.1. 300ml from colostomy last 24hr. 290ml total from SUSAN drains in last 24hr, most from RLQ. On exam, drains with minimal yellow/serous appearing fluid.
- Continue Zosyn 3.375 q6h (03/10-), renewed today
- Continue to monitor output from abdominal SUSAN drains
- ID following, appreciate recs
- Surgery following, appreciate recs
#Acute hypoxic, hypercapnic respiratory failure, resolving
Patient was intubated 03/04 given inability to wean off of BiPAP. Failed assisted ventilation trial ASV on 03/07. CXR (03/08): Similar in appearance to CXR from 03/07 ('Low lung volumes. Small to moderate bilateral pleural effusions with adjacent
atelectasis/consolidation. Slightly improved as compared with previous exam'). ABG (03/08 early am): 7.43 pH, bicarb 30.5, pCO2 46. Extubated 03/08. CXR 03/09 similar to prior, slight improvement. Bedside US demonstrated small pleural effusion, +/-
sufficient to tap 03/09. CXR 03/10: slight improvement in appearance of R-sided pleural effusion. CT 03/11: 'Small bilateral pleural effusions with adjacent atelectasis within both lower lobes.' Reduced in size, no need for effusion drainage. Suspect
resp status will continue to improve s/p ongoing abscess drainage (& lasix). By 03/13, pt satting well on 1L O2 NC with home CPAP at night.
Today: Satting 99% on 1L O2 NC.
- O2 NC today, wean down as tolerated
- Continue home CPAP at night
- Incentive spirometry
- Continue OOB
- PT/OT following, working w pt
#A-fib with RVR
#Prior episodes of bradycardia w pauses
Patient initially with rates in the 140�150s. HR has trended down to the 110�120s. Amiodarone and metoprolol were stopped on 03/04 in the setting of severe bradycardia with pauses. Metoprolol was restarted 50mg bid, reduced to 12.5mg bid on 03/12 due
to bradycardia (30s).
Today: HR 96. Irregularly irregular. K 4.1, Mg 2.1
- Continue to monitor HR on telemetry
- Metoprolol 12.5mg bid
- Holding on amiodarone
- Maintain K>4, Mg>2
- Continue heparin drip
- Avoid Precedex
- Cards following, appreciate recs
#HTN
Pt with hx of HTN. On lasix & metoprolol at home. Amlodipine briefly added during admission, now being held. Lisinopril started at 5mg daily, reduced to 2.5mg 03/12.
Today: BP 132/56.
- Metoprolol 12.5mg bid
- Lisinopril 2.5mg daily
- Hydralazine 10gm q4h prn if systolic BP>170
- Continue to monitor BP & assess HR for bradycardia
#HFpEF (EF 40-45%)
#Bilateral pleural effusions
Patient with pleural effusions, likely secondary to combination of hypoalbuminemia and congestive heart failure. CXR 03/08 slightly improved vs. 03/07. Lasix dose increased 03/12 due to increasing LYNN.
Today: fluid balance +762mL; weight 109.8>107.3>>108.8 kg (lowest this admission 102 kg); Cr 1.2>1.0>0.8>0.9
- Continue PO lasix 40mg bid
- Daily weights, daily I's and O's
- Cards following, appreciate recs
#Hospital-induced delirium
Pt daughter endorses that he's seeing/talking to people who aren't there. Some confusion/hallucinations. Has not been sleeping well for the past few days. Likely in s/o delirium from hospitalization/lack of sleep.
- Melatonin 5mg qhs
- Transitioned famotidine to pantoprazole
- Encourage OOB, blinds open
- Encourage reorientation to time/place/situation by family at bedside
#Chronic
- HLD - atorvastatin 10mg qpm
#Global
- DVT PPx: Heparin gtt
- GI PPx: PPI
- Diet: Puree diet, add thickened ensure x2; attempt to discontinue TPN pending ensure; reconsult SLT for potential FEES; currently on insulin 1.5u/hr
- Code: DNR/DNI
- Dispo: Continue ICU level care today, consider IMU downgrade tmrw if off insulin drip
Subjective Dataa
Subjective Data
Date of Service:
Date of Service: March 14, 2025
Chief Complaint: Systems Planner Follow Up
Subjective:
Feeling okay this am. Awake, conversant. Denies ongoing sore throat. Says that eating puree has been fine, no choking episodes. Happy to not be using bipap anymore. States that cpap use has been going fine. Says that he has been getting OOB to the
chair but it has been difficult due to a combination of being weak on his feet, 'not 100%', and some abd pain. Denies n/v. Denies changes to colostomy output. Denies any SOB or CP. Denies any a/v hallucinations. Says he's been sleeping okay.
Review of Systems
HEENT: Oral/Throat Pain (denies)
Cardiopulmonary: Dyspnea (denies) and Cough (denies)
GI: Abdominal Pain (with moving to chair) and Nausea (denies )
Objective Data
Data Reviewed
Vital Signs / I&O / Oxygen:
Vital Signs
Temp Pulse Resp BP Pulse Ox
97.9 F 78 29 132/56 97
03/14/25 07:30 03/14/25 07:49 03/14/25 06:00 03/14/25 07:49 03/14/25 06:00
Intake and Output
03/13/25 03/14/25 03/15/25
06:59 06:59 06:59
Intake Total 2180.6 / 2261.6 2619.7 / 2619.7
Output Total 890 / 890 1665 / 1665
Balance 1290.6 / 1371.6 954.7 / 954.7
SaO2 [ASV] 99
SaO2 [CPAP/PSV] 98
SaO2 [A/C] 100
SaO2 97
Nasal Cannula flow liters per 1
minute
Physical Exam
General: Comfortable (sitting up in bed, conversant with stronger voice than prior )
HEENT: Normocephalic and Anicteric
Cardiovascular: Irregular Rhythm (Irregularly irregular) and Peripheral Edema (not present today in feet )
Respiratory: Clear (Clear to auscultation anteriorly), Accessory Resp Muscle Use (None) and Other (O2 NC )
GI: Non Distended, Other (Colostomy bag with soft brown stool) and Other (3 abdominal SUSAN drains; recently emptied, without much content; tubing with yellowish fluid that appears more serous than purulent )
Skin: Warm, Dry and Good Color
Labs/Micro/Reports
Lab Data
03/14/25 05:23
03/14/25 05:23
Laboratory Results
03/13/25 03/13/25 03/14/25
10:42 17:40 00:44
APTT 113.3 H 121.6 H 107.7 H
03/14/25
06:30
APTT 103.4 H
Microbiology
03/05/25 17:11 Abdomen Anaerobic Culture - Final
--- NOTE | 2025-03-14 07:59 | PN.DE.MGMTRT ---
Insulin Management
- -
03/14/2025: Diabetes Management Follow up
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
colostomy reversal for repeated perforated diverticulitis in 11/2024, found to have anastomotic leak CT imaging with pneumoperitoneum (02/27) requiring ex lap with bowel resection and end colostomy creation on 02/27. Prior to admission was taking no
diabetes medications. A1C 6.2%, Cr 1.1, eGFR >60.
Pt remains extubated 03/09. He is awake, alert, oriented, sitting up i bed, swallow eval in progress, unable to discuss diabetes care plan. Dtr at bedside.
POD # 22 s/p reversal of end colostomy POD # 16 s/p ex lap, colon resection, end colostomy creation for anastomotic leak.
Pureed diet was started on 03/10, appetite is improving, remains on TPN, has been adjusted to lower CHO content.
Glucose range 107 to 147, requiring 1.2 to 3 units of insulin per hour.
Plan to advance diet after swallow eval and TPN to be continued throughout day today
Will continue glycemic protocol while TPN continues.
Will reassess in AM for readiness to transition off drip, ideally when TPN is dc'd and pt is taking in more orally.
Discussed with Nurse. Will cont to follow.
Diabetes History
- -
Type of Diabetes: 2 requiring insulin
Pre-Admission Diabetes Regimen
03/14/25
05:23
Creatinine 0.9
Lab Results
Hemoglobin A1c 6.2 % (4.0-5.6) H 02/28/25 02:57
Insulin Pump Settings
IP Diabetes Regimen
03/13/25 03/13/25 03/13/25
08:30 10:33 11:23
Glucose
POC Glucose 155 H 232 H 268 H
03/13/25 03/13/25 03/13/25
12:30 13:19 14:27
Glucose
POC Glucose 257 H 237 H 181 H
03/13/25 03/13/25 03/13/25
15:32 16:29 17:34
Glucose
POC Glucose 149 H 137 H 125 H
03/13/25 03/13/25 03/13/25
18:30 20:37 22:30
Glucose
POC Glucose 121 H 171 H 149 H
03/14/25 03/14/25 03/14/25
00:43 02:42 03:36
Glucose
POC Glucose 142 H 107 H 120 H
03/14/25 03/14/25 03/14/25
05:23 06:31 07:31
Glucose 138 H
POC Glucose 147 H 127 H
Meal type: Dinner
Meal type: Lunch
Meal type: Breakfast
Amount consumed: 50%
Amount consumed: 5%
Amount consumed: 50%
Patient Education
--- NOTE | 2025-03-14 08:00 | PTCARENOTE ---
Assumed care of patient. Patient resting comfortably in bed. Hand-off validation done for patient's drips.
Patient is alert and oriented, fc, terrazas weakly
Patient is in A fib with acceptable blood pressure. Radial pulses easily palpable, DP pulses easily obtained with doppler. +2 generalized edema, with +3 in the lower legs.
Patient sating well on 1L NC, lungs diminished, IS given to encourage deep breathing.
Patient on TPN with level 4 dysphagia diet ordered. Q1 BGM checks with insulin drip. Abdomen soft/nontender, bowel sounds hypoactive. Ostomy with small amount of brown output, stoma red and beefy.
No urine output at this time, urinal in reach.
Surgical dressings changed, JPs irrigated and emptied. All site c/d/i
IV sites c/d/i and flushing easily.
Heparin drip is therapeutic at this time.
[2025-03-14 08:14] LABS: Glucose - Point of Care 95 mg/dl (70-99)
[2025-03-14 08:17] LABS: Glucose - Point of Care 126 mg/dl (70-99)
[2025-03-14 08:18] LABS: Glucose - Point of Care 209 mg/dl (70-99)
[2025-03-14] MEDS: NSS (PRESERVATIVE FREE) 10 ML IV (08:23)
[2025-03-14 08:36] LABS: Glucose - Point of Care 140 mg/dl (70-99)
--- NOTE | 2025-03-14 09:25 | W.PN.CD ---
Today's Communication / Plan
-
Cont metop for rate control
Overall he appears to be improving
Impression / Plan
-
74-year-old man with (suspected permanent) atrial fibrillation (on Eliquis), HFmrEF (last echo reportedly 45% EF), htn, h/o PE/DVT, BPH, GERD, h/o perforated diverticulitis and previous end colostomy with reversal who presented to [facility] ED after
discharge on 02/25 following elective colostomy reversal for repeated perforated diverticulitis in 11/2024, found to have anastomotic leak CT imaging with pneumoperitoneum (02/27) requiring ex lap with bowel resection and end colostomy creation. He
remains in ICU in persistent Afib with RVR.
Acute abdomen / Shock
- improved, pressors off 03/07
- Likely septic with CT A/P on 03/05 showing multiple intra-abdominal abscesses, now s/p IR drain to yuliet-hepatic abscess 03/06
- Strips. Purulent fluid By IR and another drain placed on 03/12/25
- Continue antibiotics
- Treatment as per railway signalling engineer and general surgery
- Still on TPN
Severe bradycardia with pauses
- Occurred on 03/04/2025 in the setting of Precedex, IV amiodarone, and beta-rey.
- No recurrence on telemetry
- bradycardia appears to ahve resolved
- back on metop
Suspected permanent Afib, now with RVR this admission
- As above, he had severe bradycardia with long pauses in the setting of Precedex, IV amiodarone, and beta-rey
- Heart rates now controlled, on metoprolol tartrate 12.5 mg bid: avg 90s
- Continue heparin drip for AC, with monitoring of Hgb; previously on Eliquis
HFimpEF: acute
- Preop eval: Echo LVEF 40-45% and only mild valve disease but date of echo unclear, perhaps 07/2023.
- Cath: No obstructive CAD but date of cath uncertain, perhaps 08/2023.
- Echocardiogram 03/03/2025 with LVEF of 65%; RV appeared dilated with low normal systolic function.
- Diuresis as tolerated. Currently Lasix is p.o. now.
Permanent AF
- Rates are better controlled
- Continue Metoprolol. Dose reduced and restarted now at 12.5 mg p.o. twice a day
HTN
-resumed home amlodipine 03/09 but had hypotension episodes.
-will hold norvasc for now.
- Lisinopril was held due to hypotension. Blood pressure is improved now. We will resume at 2.5 mg twice a day.
Acute hypoxic respiratory failure
- extubated 03/08
Postoperative anastomotic leak status post exploratory laparotomy, colon resection and creation of end colostomy:
- Management as per Surgical team; on antibiotics.
Physical Exam
Vital Signs/Labs
Vital Signs
Temp Pulse Resp BP Pulse Ox
97.9 F 96 31 119/67 99
03/14/25 07:30 03/14/25 08:00 03/14/25 08:00 03/14/25 08:00 03/14/25 08:00
03/13/25 03/14/25 03/15/25
06:59 06:59 06:59
Actual Weight 240 lb 4.862 oz 239 lb 13.807 oz
03/14/25 05:23
03/14/25 05:23
PT 19.9 Sec (11.4-14.6) H 02/27/25 16:52
INR 1.67 02/27/25 16:52
APTT 103.4 Sec (23.4-35.0) H 03/14/25 06:30
Magnesium 2.1 mg/dl (1.6-2.3) 03/14/25 05:23
Triglycerides 76 mg/dl (10-149) 03/14/25 05:23
TSH 4.01 uIU/ml (0.47-4.68) 03/12/25 02:27
03/02/25 03/04/25 03/05/25
03:45 04:09 04:54
Lwx-O-Wdebkgtyorq Pept 3370 4632 1979
03/07/25
03:14
Tqt-F-Zdzqvrjavnn Pept 482
Physical Exam
Constitutional: No acute distress and Comfortable
EENT: Anicteric
Cardiovascular: Rhythm/rate is irregular and Pedal edema present
Respiratory: Other (coarse breath sounds poor inspiratory effort)
GI: Soft
Neuro/Psych: Alert and Oriented
Data Reviewed
-
Date of Service: March 14, 2025
EKG: Tracing Personally Visualized and interpreted (af)
Echo: Report Reviewed by me
Labs: Labs Reviewed by me
[2025-03-14 09:42] LABS: Glucose - Point of Care 158 mg/dl (70-99)
--- NOTE | 2025-03-14 09:43 | W.PN.ID1 ---
Addendum entered and electronically signed by Riley Ingram DO 03/14/25 11:07:
I saw and evaluated the patient. I reviewed the resident�s note and agree with findings and plan as documented in the resident�s note.
Continue current abx.
Follow WBC / temps / drain output.
Original Note:
Date of Service
Date of Service: March 14, 2025
Today's Communication
Continue antibiotics
Assessment / Plan
74-year-old male with a significant past medical history including A-fib, colostomy in August 2024 for perforated diverticulitis and then underwent elective reversal of colostomy on 02/21. On 02/27 he presented to the hospital with nausea and vomiting
and was found to have free air in the abdomen and underwent ex lap, colon resection, end colostomy creation for anastomotic leak.
#Anastomotic leak / perforated viscus
#Abdominal abscesses; s/p drainage
- Cultures with E. coli, Citrobacter, Enterococcus
#Leukocytosis
- Persists
#Bacteremia with bacillus species
- contamination
Recommendations:
- Intra-abdominal cultures with E. coli, Citrobacter, Enterococcus. All isolate susceptible to Zosyn.
- Continue with Zosyn 3.375 gm IV q.6 hours (d#16 abx)
Follow WBC and temp curve
Follow drain output - reduced output compared to before
Continue with supportive measures.
May need additional drainage. Defer to Surgery.
����������������������������������������������������������
Chief Complaint
-: Leukocytosis and Other (Intra-abdominal abscesses)
Subjective / Review of Systems
Patient seen this morning, resting comfortably in his bed. Reports no adverse events overnight, no fevers, chills. Reports his pain levels are in tolerable levels at this time. Reports that his drains are continuing to drain fluids
Review of Systems: No Fever, No Chills, No Headache, No Cough, No Nausea, No Vomiting and No Diarrhea
Vital Signs / Physical Exam
Vital Signs
Vital Signs
Temp Pulse Resp BP Pulse Ox
97.9 F 96 31 119/67 99
03/14/25 07:30 03/14/25 08:00 03/14/25 08:00 03/14/25 08:00 03/14/25 08:00
Physical Exam
Constitutional: No Acute Distress, Comfortable and Non-toxic
Head: Normocephalic
Eyes: Sclera Anicteric
Cardiovascular: Irregular Rate, S1/S2 and Peripheral Edema
Pulmonary: Clear; Negative Wheezes
Gastrointestinal: Soft, Non Tender, Non Distended and Other (Colostomy bag with soft brown stool, [address] 2 on the right 1 on the left, all draining purulent fluid)
Extremities: Edema
Skin: Warm
Neurological: Awake, Alert, Oriented and AO x 3
Psychological: Calm
Objective Data
Lab Data
Lab Results
03/14/25 05:23
03/14/25 05:23
PT 19.9 Sec (11.4-14.6) H 02/27/25 16:52
INR 1.67 02/27/25 16:52
APTT 103.4 Sec (23.4-35.0) H 03/14/25 06:30
Estimated Creat Clear 81 ml/min 03/14/25 05:23
Lactic Acid 1.5 mmol/L (0.7-2.0) 03/01/25 03:18
Total Bilirubin 0.4 mg/dl (0.2-1.3) 03/14/25 05:23
AST 28 U/L (17-59) 03/14/25 05:23
ALT 31 U/L (0-50) 03/14/25 05:23
Alkaline Phosphatase 148 U/L (38-126) H 03/14/25 05:23
Most recent labs reviewed.
Micro Results:
03/05/25 17:11 Anaerobic Culture - Final
Abdomen
03/05/25 11:35 Blood Culture - Final
Blood/Venous No Growth - Final Report
03/06/25 10:50 Wound Culture - Final
Abdomen Escherichia coli
Citrobacter youngae
Enterococcus faecalis
Gram Stain - Final
03/05/25 17:11 Wound Culture - Final
Abdomen Escherichia coli
Citrobacter youngae
Enterococcus faecalis
Gram Stain - Final
03/01/25 20:44 Blood Culture - Final
Blood/Venous Bacillus species,not anthracis
Gram Stain - Final
03/01/25 19:46 Blood Culture - Final
Blood/Venous No Growth - Final Report
Imaging:
03/11/2025 CT abdomen/pelvis: again seen are multiple intra-abdominal fluid collections. There has been interval placement of percutaneous drainage catheters with improvement in size of both collections although significant residual fluid
collections remain, particularly within the left upper quadrant.
03/05/2025: CT Chest/abd/pel W Iv Contrast: Postoperative abdomen with developing intra-abdominal abscesses in the left upper quadrant and right upper quadrant of the abdomen, and smaller probable developing abscesses in the upper abdomen inferior
to the distal stomach and in the anterior pelvis deep to the anterior pelvic wall.
Small bilateral pleural effusions and bilateral lower lobe compressive atelectasis.
02/27/2025: CT Abd/pel W Iv And Oral Contrast: 1. Postoperative leak at the left colonic anastomosis, with extraluminal contrast. Large degree of pneumoperitoneum.2. Trace bilateral pleural effusions with associated probable atelectasis. Cannot rule
out superimposed left lower lobe pneumonia.
--- NOTE | 2025-03-14 10:34 | W.PN.GS2 ---
Addendum entered and electronically signed by Sahil Sandoval MD 03/14/25 13:47:
I saw and examined the patient.
The [facility] note was reviewed and I agree with the note.
Comment: Improving. FEES today and swallow function improved. Limited PO intake. Pain controlled. Belly soft, essentially nt, stoma with brown stool, upper drains seropurulent, lower drain serous, midline wound with open area, granulating, clean.
Plan for wound vac to midline. Once tolerating sufficient PO will DC TPN. IV abx per ID.
Original Note:
Today's Communication / Plan
-
diet as tolerated, tpn continued
continue drains
abx as per ID
Assessment / Plan
-
Assessment: 74 yo M POD 22 s/p reversal of end colostomy POD 16 s/p ex lap, colon resection, end colostomy creation for anastomotic leak
AFVSS
WBC lower than previous but with slight uptrend
H/H stable
good ostomy function
LUQ drain placed on 03/05/25 upsized on 03/11/25 seropurulent fluid noted
RUQ drain placed 03/06/25 - seropurulent, clearing from prior
RLQ drain placed 03/11 - serous
polymicrobial on cultures - ID following
Plan:
-- Puree/nectar thick diet with fortified pudding per speech recommendations
limited PO intake likely d/t swallow but improving
appreciate nutrition, tpn adjusted per recs
once taking in more orally will be able to d/c tpn
-- Abx: per ID, recs appreciated
-- continue PT/OT/ST
-- Local wound care with wet to dry dressing, wound care consulted to follow
-- Medical management as per ICU team
Continue to optimize management with drains, abx, etc,
Subjective Data
-
Date of Service: March 14, 2025
Pt seen and examined at bedside. Daughter present and questions addressed. Pt speaking with less difficulty today. Denies n/v. Tolerating diet but still with lower intake. Denies pain.
Objective Data
-
Intake and Output
03/13/25 03/14/25 03/15/25
06:59 06:59 06:59
Intake Total 2180.6 / 2261.6 2619.7 / 2639.4 109.9 / 109.9
Output Total 890 / 890 1665 / 1665 390 / 390
Balance 1290.6 / 1371.6 954.7 / 974.4 -280.1 / -280.1
Intake:
Oral fluids 100 / 100 460 / 460
IV fluids (Total) 597.6 / 617.6 526.7 / 546.4 79.9 / 79.9
Insulin (GP)100units/100ml Nss 94.6 / 94.6 68.2 / 69.4 5.9 / 5.9
heparin 503 / 523 458.5 / 477.0 74.0 / 74.0
IV piggybacks 50 / 50 200 / 200
TPN/PPN 1403 / 1464 1403 / 1403
Amount instilled into Drain ( 30 / 30 30 / 30 30 / 30
Total)
Left Abdomen Celso-Loyd C
Placed in IR
Right Lower Abdomen Celso-
Loyd C Placed in IR
Right Lower Celso-Loyd B
Right Upper Abdomen Celso-
Loyd A
Output:
Liquid stool amount 300 / 300 300 / 300
Colostomy 300 / 300 300 / 300
Drain Output (Total) 590 / 590 290 / 290 40 / 40
Left Abdomen Celso-Loyd C 50 / 50 20 / 20
Placed in IR
Right Lower Abdomen Celso- 200 / 200 70 / 70
Loyd C Placed in IR
Right Lower Celso-Loyd B 290 / 290 145 / 145
Right Upper Abdomen Celso- 100 / 100
Loyd A
Urine, Voided 0 / 0 1075 / 1075 350 / 350
Other:
How many times incontinent 1
SMALL amount urine
How many times incontinent 1 1
MODERATE amount urine
How many times incontinent 1 1
SATURATED amount urine
Number of approximated MODERATE 1
amounts of urine
Vital Signs
Temp Pulse Resp BP Pulse Ox
97.9 F 96 29 112/54 98
03/14/25 07:30 03/14/25 10:00 03/14/25 10:00 03/14/25 10:00 03/14/25 10:00
Lab Results
03/14/25 05:23
03/14/25 05:23
Calcium 8.6 mg/dl (8.4-10.2) 03/14/25 05:23
Phosphorus 3.7 mg/dl (2.5-4.5) 03/14/25 05:23
Magnesium 2.1 mg/dl (1.6-2.3) 03/14/25 05:23
Total Bilirubin 0.4 mg/dl (0.2-1.3) 03/14/25 05:23
Direct Bilirubin 1.9 mg/dl (0.0-0.4) H 03/02/25 03:45
AST 28 U/L (17-59) 03/14/25 05:23
ALT 31 U/L (0-50) 03/14/25 05:23
Alkaline Phosphatase 148 U/L (38-126) H 03/14/25 05:23
Total Protein 5.7 g/dl (6.3-8.2) L 03/14/25 05:23
Albumin 2.1 g/dl (3.5-5.0) L 03/14/25 05:23
Physical Exam
-
Gen: NAD
Abd: soft, nt, RUQ drain with seropurulent drainage, LUQ drain with seropurulent drainage (clearing), RLQ drain with serous drainage, midline incision open areas granulating visible exposed fascial sutures concern for developing dehiscence, minimal
serous drainage, stoma appliance with thick brown stool
Patient has a hoffman catheter: No
Patient has a central line: Yes
[2025-03-14 10:43] LABS: Glucose - Point of Care 226 mg/dl (70-99)
[2025-03-14] MEDS: NOVOLOG FLEXPEN 2 UNITS SC ×2 (11:48→16:30)
[2025-03-14 11:55] LABS: Glucose - Point of Care 219 mg/dl (70-99)
--- NOTE | 2025-03-14 12:11 | PTCARENOTE ---
Addendum entered by Elpidio Gamez RN 03/14/25 14:17:
Per speech patient ok for thin liquids but needs to take breaks every 10 minutes when eating or drinking due to fatigue.
Original Note:
Patient had FEES done with speech at bedside. At this time, no changes to diet to be made. Insulin drip and Q1 checks still being completed. Patient has no complaints of pain.
Assessment unchanged.
[2025-03-14 12:57] LABS: Glucose - Point of Care 197 mg/dl (70-99)
[2025-03-14 13:46] LABS: Glucose - Point of Care 195 mg/dl (70-99)
--- NOTE | 2025-03-14 14:35 | WOUNDNOTE ---
ABDOMEN (chest toward R side of photo)
--- NOTE | 2025-03-14 14:36 | WOUNDNOTE ---
[facility] RN note: Patient admitted with pneumoperitoneum. s/p exploratory lap, creation of end colostomy on 02/27/25.
See H&P for complete history.
PMH: robotic colecotmy 08/2024, colostomy 11/2024, subdural hematoma-irma holes/craniotomy 1990, L TKA 2016, TBI, PE, sleep apnea, CPAP use, CHF, a fib, CAD, DVT, edema, HTN, urinary retention, renal stones, arthritis, obesity.
Wound Location and type/assessment: Patient has midline surgical full thickness wound, pink with scattered yellow tissue with blue colored sutures in wound bed. Moderate serous drainage with some cloudy yellow drainage. Proximal small midline
incisional opening with small purulent drainage. +Mucocutaneous dehiscence around stoma from 1-7 o'clock. Stoma pink with small dusky area. Stoma functioning for soft loose brown stool. Peristomal skin with some red irritated skin d/t moisture.
Appetite: fair.
Pressure redistribution devices in place: Progressa air mattress. Air chair cushion.
Plan: Midline dressing changed as ordered. Colostomy appliance changed using Olivia wafer # [id number], Jones seal and Bucks pouch #[id number]. Ostomy supplies left in room. Patient has done his ostomy are in the past. [place] texted Dr. Sandoval stoma
picture to report stoma/skin dehiscence. Dr. Sandoval stated he is considering a wound vac for the midline surgical wound. Defer to surgeon if and when a wound vac is indicated. Patient turned to L semi side lying position with help from SHOLA Magallanes.
Heels off bed with pillow. Bariatric air chair cushion given. Next ostomy appliance change due or Friday.
Care plan to be updated and will follow as needed.
Note to case management of equipment requested for discharge: Air mattress at SNF/rehab.
[2025-03-14 14:43] LABS: Glucose - Point of Care 153 mg/dl (70-99)
--- NOTE | 2025-03-14 14:55 | PTOTSP ---
Flexible Endoscopic Evaluation of Swallowing (FEES)
Summary: Initial presentation of thin liquid tolerated with no evidence for laryngeal penetration or aspiration and trace pharyngeal coating. Over time, the patient's swallow worsened with minimal but more obvious and diffuse pharyngeal residue,
difficulty initiating swallows, and trace penetration/aspiration arising during swallow or from residual. Fatigue appears to be contributing factor, as reduced performance note at ~ 12 minute francisco.
Recommend
1. Continue Level 4/Puree diet and advance to thin liquids.
2. Single straw sips of liquid - encourage chin tuck.
3. Meds crushed in applesauce.
4. Eat for only 10 minutes at a time. Allow approximately 30 minute break in between meals.
5. Aspiration precautions.
6. Monitor lungs closely
7. ST will continue to follow with focus on improving airway protection. cough strength, and pharyngeal strength for improved swallowing safety and efficiency.
--- NOTE | 2025-03-14 15:31 | PTCARENOTE ---
Patient is currently working with physical therapy and occupational therapy to get out of bed. No changes in assessment.
[2025-03-14 15:55] LABS: Glucose - Point of Care 151 mg/dl (70-99)
--- NOTE | 2025-03-14 16:09 | CM ---
TPN, Diet as tolerated, Abdominal drains in place at LUQ, RUQ and RLQ. WBC 12.1, IV/Zosyn/heparin/insulin. Discharge POC: Therapy rec for acute vs SNF. Will await further evals with medical progression.
[2025-03-14 16:41] LABS: Glucose - Point of Care 172 mg/dl (70-99)
[2025-03-14] MEDS: LIPITOR 10 MG PO (17:43)
[2025-03-14 17:50] LABS: Glucose - Point of Care 144 mg/dl (70-99)
[2025-03-14 18:48] LABS: Glucose - Point of Care 162 mg/dl (70-99)
[2025-03-14 19:43] LABS: Glucose - Point of Care 177 mg/dl (70-99)
[2025-03-14] MEDS: Parenteral Nutrition, Central 1190 IV (20:31)
[2025-03-14 21:36] LABS: Glucose - Point of Care 161 mg/dl (70-99)
[2025-03-14] MEDS: MELATONIN 5 MG PO (21:39)
--- NOTE | 2025-03-14 22:43 | PTCARENOTE ---
Received patient at change of shift. Patient aao x3, affect flat. Family at bedside at start of shift. Patient remains in afib, hr 90-100's. Generalized anasarca, +2 bl le edema noted. Patient on 1L o2 at start of shift, pox 99-100%. Patient
currently wearing CPAP from home to room air, pox 98%. LS diminished throughout. BS active x4, colostomy dressing changed by hospitalist nocturnist physician earlier today. Stoma beefy red, budded, putting out soft green/brown stool. TPN currently running at 50ml/hr
as ordered. Diet upgraded to IDDS 4, pureed earlier today, thin liquids ok. Appetite poor, finished 1 ensure earlier this evening. Patient using urinal with RN assist, putting out average of 300ml, clear yellow urine at a time. SUSAN drain dressings
c/d/i, midline incision dressing c/d/i as well. Patient remains on heparin gtt to left fa iv, and Insulin gtt to right PICC. Call velazquez within reach, patient able to use call velazquez appropriately, will continue to monitor patient closely.
[2025-03-14] MEDS: NOVOLIN R INSULIN INFUSION 100 IV (23:43)
[2025-03-14 23:49] LABS: Glucose - Point of Care 111 mg/dl (70-99)
[2025-03-15] VITALS (25 sets, daily range): BP systolic 109–142; BP diastolic 50–121; PULSE 96; O2SAT 97; BMI 40.2
--- NOTE | 2025-03-15 00:31 | PTCARENOTE ---
Patient attempted to use urinal independently and was incontinent of large amount of urine, hygiene provided. Patient remains on TPN and Insulin gtt to right picc, Heparin to Left fa iv site. Assessment otherwise unchanged. Call velazquez within reach,
will continue to monitor patient closely.
[2025-03-15 01:49] LABS: Glucose - Point of Care 99 mg/dl (70-99)
[2025-03-15 02:34] LABS: Glucose - Point of Care 104 mg/dl (70-99)
[2025-03-15 03:56] LABS: Glucose - Point of Care 155 mg/dl (70-99)
--- NOTE | 2025-03-15 04:04 | PTCARENOTE ---
Insulin gtt on hold since earlier this morning d/to bg 99. Assessment overall unchanged. Call velazquez within reach, will continue to monitor patient closely.
[2025-03-15 04:18] LABS: Hematocrit 25.7 % (39.0-52.0); Hemoglobin 8.1 g/dL (13.0-18.0); Mean Corp Hgb Conc. 31.5 g/dL (33.0-37.0); Mean Corpuscular Volume 92.4 fL (80.0-94.0); Platelet Count 512 10^3/uL (130-400); Red Cell Dist. Width 14.9 % (11.5-14.5)
[2025-03-15 04:40] LABS: ALT (SGPT) 32 U/L (0-50); AST (SGOT) 30 U/L (17-59); Albumin 2.0 g/dl (3.5-5.0); Alkaline Phosphatase 174 U/L (38-126); Blood Urea Nitrogen 40 mg/dl (9-20); Calcium 8.2 mg/dl (8.4-10.2); Carbon Dioxide 35 mmol/L (22-30); Chloride 104 mmol/L (98-107); Estimated Creatinine Clearance 93 ml/min; Glucose 131 mg/dl (70-99); Potassium 4.0 mmol/L (3.5-5.1); Sodium 141 mmol/L (135-145); Total Protein 5.7 g/dl (6.3-8.2); eGFR > 60.00
[2025-03-15] MEDS: ZOSYN 50 IV ×4 (04:53→23:40)
[2025-03-15 04:57] LABS: Glucose - Point of Care 117 mg/dl (70-99)
[2025-03-15 05:20] LABS: APTT 73.2 Sec (23.4-35.0)
[2025-03-15 05:40] LABS: Glucose - Point of Care 128 mg/dl (70-99)
[2025-03-15] MEDS: HEPARIN 25000 UNITS/250 ML IV ×2 (05:44→16:54)
--- NOTE | 2025-03-15 05:57 | PTCARENOTE ---
Addendum entered by Marilou Newby RN 03/15/25 06:19:
PROJECT ADMIN off unit to assist with other patient transfer, will notify PROJECT ADMIN upon return and/or oncoming RN.
Original Note:
RN assisted patient with urinal, 300ml clear yellow UO. Patient noted to have increased scrotal edema since earlier this am. RN notified Sandra ROCHE.
--- NOTE | 2025-03-15 07:37 | PN.DE.MGMTRT ---
Insulin Management
- -
03/15/2025: Diabetes Management Follow up
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
colostomy reversal for repeated perforated diverticulitis in 11/2024, found to have anastomotic leak CT imaging with pneumoperitoneum (02/27) requiring ex lap with bowel resection and end colostomy creation on 02/27. Prior to admission was taking no
diabetes medications. A1C 6.2%, Cr 1.1, eGFR >60.
Pt extubated 03/09. He is awake, alert, oriented, sitting up in bed, swallow eval improved yesterday, unable to discuss diabetes care plan. Dtr at bedside.
POD # 23 s/p reversal of end colostomy POD # 17 s/p ex lap, colon resection, end colostomy creation for anastomotic leak.
Pureed diet was started on 03/10, appetite is improving, remains on TPN, has been adjusted to lower CHO content.
Glucose range 111 to 153, requiring 1.2 to 3 units of insulin per hour until 1AM - glucose 99, insulin infusion off, and has remained off. Hourly glucose 104 to 155.
Diet pureed, continues TPN. Will stop glycemic protocol insulin infusion and start moderate corrective insulin AC.
Discussed with Nurse. Will cont to follow.
Diabetes History
- -
Pre-Admission Diabetes Regimen
03/15/25
03:42
Creatinine 0.8
Lab Results
Hemoglobin A1c 6.2 % (4.0-5.6) H 02/28/25 02:57
Insulin Pump Settings
IP Diabetes Regimen
03/13/25 03/14/25 03/14/25
02:29 04:34 05:26
Glucose
POC Glucose 95 126 H 209 H
03/14/25 03/14/25 03/14/25
07:31 08:25 09:31
Glucose
POC Glucose 127 H 140 H 158 H
03/14/25 03/14/25 03/14/25
10:31 11:44 12:46
Glucose
POC Glucose 226 H 219 H 197 H
03/14/25 03/14/25 03/14/25
13:35 14:32 15:44
Glucose
POC Glucose 195 H 153 H 151 H
03/14/25 03/14/25 03/14/25
16:30 17:39 18:37
Glucose
POC Glucose 172 H 144 H 162 H
03/14/25 03/14/25 03/14/25
19:31 21:25 23:38
Glucose
POC Glucose 177 H 161 H 111 H
03/15/25 03/15/25 03/15/25
01:38 02:23 03:42
Glucose 131 H
POC Glucose 99 104 H 155 H
03/15/25 03/15/25
04:46 05:29
Glucose
POC Glucose 117 H 128 H
Patient Education
[2025-03-15 07:42] LABS: Glucose - Point of Care 143 mg/dl (70-99)
--- NOTE | 2025-03-15 07:44 | W.PN.ID1 ---
Date of Service
Date of Service: March 15, 2025
Today's Communication
Continue antibiotics.
Assessment / Plan
74-year-old male with a significant PMHx of A-fib, colostomy (08/2024) for perforated diverticulitis with subsequent elective reversal of colostomy on 02/21/25. On 02/27 he presented to the hospital with nausea and vomiting and was found to have free
air in the abdomen and underwent ex lap, colon resection, end colostomy creation for anastomotic leak.
#Anastomotic leak / perforated viscus
#Abdominal abscesses; s/p drainage
- Cultures with E. coli, Citrobacter, Enterococcus
#Leukocytosis
- Persists
#Bacteremia with bacillus species
- contamination
Recommendations:
- Intra-abdominal cultures with E. coli, Citrobacter, Enterococcus. All isolate susceptible to Zosyn.
- Continue with Zosyn 3.375 gm IV q.6 hours (d#17)
Follow WBC and temp curve. Mild trend upward of white count noted.
Follow drain output
Continue with supportive measures.
����������������������������������������������������������
Chief Complaint
-: Leukocytosis and Other (Intra-abdominal abscesses)
Subjective / Review of Systems
Review of Systems: No Fever, No Chills and Abdominal Pain (Minimal)
Vital Signs / Physical Exam
Vital Signs
Vital Signs
Temp Pulse Resp BP Pulse Ox
98.3 F 90 27 118/53 95
03/15/25 04:15 03/15/25 06:00 03/15/25 06:00 03/15/25 06:00 03/15/25 06:00
Physical Exam
Constitutional: No Acute Distress, Comfortable and Non-toxic
Head: Normocephalic
Eyes: Sclera Anicteric
Cardiovascular: Irregular Rate and S1/S2
Pulmonary: Clear and Non Labored; Negative Wheezes
Gastrointestinal: Soft, Non Tender, Non Distended and Other (Colostomy bag with soft brown stool, [address] 2 on the right 1 on the left, all draining seropurulent fluid)
Extremities: Edema
Skin: Warm
Neurological: Alert and AO x 3
Psychological: Calm
Objective Data
Lab Data
Lab Results
03/15/25 03:42
03/15/25 03:42
PT 19.9 Sec (11.4-14.6) H 02/27/25 16:52
INR 1.67 02/27/25 16:52
APTT 73.2 Sec (23.4-35.0) H 03/15/25 03:56
Estimated Creat Clear 93 ml/min 03/15/25 03:42
Lactic Acid 1.5 mmol/L (0.7-2.0) 03/01/25 03:18
Total Bilirubin 0.4 mg/dl (0.2-1.3) 03/15/25 03:42
AST 30 U/L (17-59) 03/15/25 03:42
ALT 32 U/L (0-50) 03/15/25 03:42
Alkaline Phosphatase 174 U/L (38-126) H 03/15/25 03:42
Most recent labs reviewed.
Micro Results:
03/05/25 17:11 Anaerobic Culture - Final
Abdomen
03/05/25 11:35 Blood Culture - Final
Blood/Venous No Growth - Final Report
03/06/25 10:50 Wound Culture - Final
Abdomen Escherichia coli
Citrobacter youngae
Enterococcus faecalis
Gram Stain - Final
03/05/25 17:11 Wound Culture - Final
Abdomen Escherichia coli
Citrobacter youngae
Enterococcus faecalis
Gram Stain - Final
03/01/25 20:44 Blood Culture - Final
Blood/Venous Bacillus species,not anthracis
Gram Stain - Final
03/01/25 19:46 Blood Culture - Final
Blood/Venous No Growth - Final Report
Wound/abscess/other Cult Final 03/05/2025
Few Escherichia coli
Few Citrobacter youngae
Moderate Enterococcus faecalis
Organism 1 Escherichia coli
Organism 2 Citrobacter youngae
Organism 3 Enterococcus faecalis
E.COLI C. YOUNGAE ENTFCL
M.I.C. RX M.I.C. RX M.I.C. RX
--------- --- --------- --- --------- ---
Amoxicillin/Potas. Clavulanate <=8/4 S >16/8 R
Ampicillin <=8 S >16 R <=2 S
Ampicillin/Sulbactam <=4/2 S >16/8 R
Aztreonam <=4 S >16 R
Cefazolin <=2 S >16 R
Cefepime <=2 S
Ceftazidime >16 R
Ceftriaxone >2 R
Ertapenem <=0.5 S <=0.5 S
Ciprofloxacin <=0.25 S <=0.25 S
Gentamicin <=2 S <=2 S
Gentamicin Synergy Screen >500 R
Meropenem <=1 S <=1 S
Piperacillin/Tazobactam <=8 S <=8 S
Tetracycline <=4 S <=4 S
Tobramycin <=2 S <=2 S
Trimethoprim/Sulfamethoxazole <=2/38 S <=2/38 S
Vancomycin 2 S
Imaging:
03/11/2025 CT abdomen/pelvis: again seen are multiple intra-abdominal fluid collections. There has been interval placement of percutaneous drainage catheters with improvement in size of both collections although significant residual fluid
collections remain, particularly within the left upper quadrant.
03/05/2025: CT Chest/abd/pel W Iv Contrast: Postoperative abdomen with developing intra-abdominal abscesses in the left upper quadrant and right upper quadrant of the abdomen, and smaller probable developing abscesses in the upper abdomen inferior
to the distal stomach and in the anterior pelvis deep to the anterior pelvic wall.
Small bilateral pleural effusions and bilateral lower lobe compressive atelectasis.
02/27/2025: CT Abd/pel W Iv And Oral Contrast: 1. Postoperative leak at the left colonic anastomosis, with extraluminal contrast. Large degree of pneumoperitoneum.2. Trace bilateral pleural effusions with associated probable atelectasis. Cannot rule
out superimposed left lower lobe pneumonia.
[2025-03-15] MEDS: LASIX 40 MG PO ×2 (07:55→19:51)
[2025-03-15] MEDS: ZESTRIL 2.5 MG PO ×2 (07:55→19:51)
[2025-03-15] MEDS: LOPRESSOR 12.5 MG PO ×2 (07:55→19:50)
[2025-03-15] MEDS: DESENEX/MITRAZOL/ZEASORB 1 APPLIC TOPICAL ×2 (07:55→20:03)
[2025-03-15] MEDS: PROTONIX IV 40 MG IV (07:56)
[2025-03-15] MEDS: NOVOLOG FLEXPEN SC (07:56)
[2025-03-15] MEDS: NSS (PRESERVATIVE FREE) 10 ML IV (07:56)
--- NOTE | 2025-03-15 07:56 | W.PN.INTV ---
Today's Communication / Plan
Recommendations
- IMU downgrade today
- Encourage PT/OT work, OOB
- Incentive spirometry
- Last bag TPN today, then stop
- 2x ensure/day + puree diet
- Metoprolol 12.5mg bid
- Lisinopril 2.5mg daily
- Lasix 40mg bid
- CPAP at night
- Continue zosyn
Assessment
-
Pt is a 74-year-old male with a pmh notable for afib (on eliquis), HFpEF, HTN, and diverticulitis who p/w L-sided abdominal pain, vomiting, & chills in the s/o recent ex lap for perforated diverticulitis & formation of end colostomy, followed by
colostomy reversal on 02/21/25. Found on CT a/p to have postoperative leak at the left colonic anastomosis site with extraluminal contrast, with a large degree of pneumoperitoneum (02/27). Gen surg performed exlap w colon resection and creation of an
end colostomy (02/27). Patient remained intubated and was transferred to the ICU postoperatively. Hot Wire Glass Tube Cutter services consulted for additional management/recommendations. Plan/course as below.
Overview of ICU course: Patient was intubated for 1 day then extubated to BiPAP. However, patient was unable to be successfully weaned from BiPAP, experiencing episodes of hypercapnia when trialing off. Thought to be combination of
atelectasis/poor inspiratory ability in setting of ongoing sepsis/intraabdominal infection, as well as cardiopulmonary volume overload, with component of symptomatic A-fib with RVR. Given inability to wean from BiPAP, patient was reintubated on
03/04. CT scan on 03/05 demonstrated multiple intra-abdominal abscesses; IR guided drainage yielded purulent fluid from 2 areas. Patient with [address] place. Extubated on 03/08. CT 03/11 demonstrated mild decrease of intraabdominal
abscesses with drains but persistence of significant fluid collections, with new collections in perisplenic/subdiaphragmatic space. 03/11 IR placed RLQ drain & upsized LUQ drain. 03/12 GOC: code status changed to DNR/DNI.
#Intra-abdominal abscesses
#Transient bacteremia in setting of colonic anastomotic leak
#Septic shock, resolved
Patient blood culture 03/01 positive for GPC bacilli. Repeat blood cultures without growth. Patient s/p Zosyn (02/27-03/07); vanc (03/06-03/10), meropenem (03/07-03/10). Had been afebrile with WBCs trending down through 03/04. 03/05 CT scan demonstrated
intra-abdominal abscesses ('left upper quadrant and right upper quadrant of the abdomen, and smaller probable developing abscesses in the upper abdomen inferior to the distal stomach and in the anterior pelvis deep to the anterior pelvic wall'). On
03/05 & 03/06, IR drained purulent fluid from left upper quadrant and right perihepatic space. Patient spiked fever to 100.6 on 03/07 afternoon. Off pressors on 03/08. Wound cx: e coli, second GNB, enterococcus sp. Susceptibilities returned. CT ap
(03/11): Multiple intra-abdominal fluid collection/abscesses. Interval placement of percutaneous drainage catheters within anterior left upper quadrant and right perihepatic fluid collections with improvement of both, noting significant residual
fluid collections remain, particular within the left upper quadrant. Additional fluid collections identified within the perisplenic/subdiaphragmatic space and anterior pelvis.' IR placed additional RLQ drain (total 3) on 03/11.
Today: Afebrile. WBC: 26>>>12.2>16.4>>12.1>14.1. 200ml from colostomy last 24hr. 199ml total from SUSAN drains in last 24hr, most from RLQ. On exam, drains with minimal yellow/serous appearing fluid.
- Continue Zosyn 3.375 q6h (03/10-), renewed today
- Continue to monitor output from abdominal SUSAN drains
- Surgery planning for wound vac to midline
- ID following, appreciate recs
- Surgery following, appreciate recs
#Acute hypoxic, hypercapnic respiratory failure, resolving
Patient was intubated 03/04 given inability to wean off of BiPAP. Failed assisted ventilation trial ASV on 03/07. CXR (03/08): Similar in appearance to CXR from 03/07 ('Low lung volumes. Small to moderate bilateral pleural effusions with adjacent
atelectasis/consolidation. Slightly improved as compared with previous exam'). ABG (03/08 early am): 7.43 pH, bicarb 30.5, pCO2 46. Extubated 03/08. CXR 03/09 similar to prior, slight improvement. Bedside US demonstrated small pleural effusion, +/-
sufficient to tap 03/09. CXR 03/10: slight improvement in appearance of R-sided pleural effusion. CT 03/11: 'Small bilateral pleural effusions with adjacent atelectasis within both lower lobes.' Reduced in size, no need for effusion drainage. Suspect
resp status will continue to improve s/p ongoing abscess drainage (& lasix). By 03/13, pt satting well on 1L O2 NC with home CPAP at night.
Today: Satting 95% on RA.
- Continue home CPAP at night
- Incentive spirometry
- Continue OOB
- PT/OT following, working w pt
#Weakness, deconditioning
Pt endorsing fear of getting OOB due to c/f falling/weakness. Has impeded his work with PT. Has been hospitalized >2 weeks and s/p intubation x2. Deconditioned. Will require extensive rehabilitation following discharge.
- PT/OT following
#A-fib with RVR
#Prior episodes of bradycardia w pauses
Patient initially with rates in the 140�150s. HR has trended down to the 110�120s. Amiodarone and metoprolol were stopped on 03/04 in the setting of severe bradycardia with pauses. Metoprolol was restarted 50mg bid, reduced to 12.5mg bid on 03/12 due
to bradycardia (30s).
Today: HR 96. Irregularly irregular. K 4.0, Mg 1.8
- Continue to monitor HR on telemetry
- Metoprolol 12.5mg bid
- Holding on amiodarone
- Maintain K>4, Mg>2 via TPN today
- Continue heparin drip
- Avoid Precedex
- Cards following, appreciate recs
#HFpEF (EF 40-45%)
#Bilateral pleural effusions
Patient with pleural effusions, likely secondary to combination of hypoalbuminemia and congestive heart failure. CXR 03/08 slightly improved vs. 03/07. Lasix dose increased 03/12 due to increasing LYNN.
Today: fluid balance -205mL; weight 109.8>107.3>>112.8 kg (lowest this admission 102 kg); Cr 1.2>1.0>0.8>>0.8
- Continue PO lasix 40mg bid
- Recheck weight today
- Daily weights, daily I's and O's
- Cards following, appreciate recs
#HTN
Pt with hx of HTN. On lasix & metoprolol at home. Amlodipine briefly added during admission, now being held. Lisinopril started at 5mg daily, reduced to 2.5mg 03/12.
Today: BP 118/53.
- Metoprolol 12.5mg bid
- Lisinopril 2.5mg daily
- Hydralazine 10gm q4h prn if systolic BP>170
- Continue to monitor BP & assess HR for bradycardia
#Hospital-induced delirium, resolved
Pt daughter endorsed that he's seeing/talking to people who aren't there. Some confusion/hallucinations. Has not been sleeping well for the past few days. Likely in s/o delirium from hospitalization/lack of sleep.
Today: resolved
- Melatonin 5mg qhs
- Transitioned famotidine to pantoprazole
- Encourage OOB, blinds open
- Encourage reorientation to time/place/situation by family at bedside
#Chronic
- HLD - atorvastatin 10mg qpm
#Global
- DVT PPx: Heparin gtt
- GI PPx: PPI
- Diet: Puree diet, with thin liquid Ensure through straw, 10min at a time; 2x ensure/day; d/c TPN after today's bag; insulin gtt off
- Code: DNR/DNI
- Dispo: IMU downgrade today
Subjective Dataa
Subjective Data
Date of Service:
Date of Service: March 15, 2025
Chief Complaint: Hot Wire Glass Tube Cutter Follow Up
Subjective:
This morning awake, conversant, able to speak in more full sentences without O2 support. States that he wasn't able to get OOB to chair with PT yesterday because he wasn't willing due to anxiety about falling/weakness. Denies abdominal pain. Denies
SOB/CP. States that he has been able to keep down food and Ensure last night without n/v.
Review of Systems
General: Satisfactory Appetite
Cardiopulmonary: Dyspnea (denies)
GI: Abdominal Pain (denies), Nausea (denies) and Vomiting (denies)
Neuro: Weakness
Objective Data
Data Reviewed
Vital Signs / I&O / Oxygen:
Vital Signs
Temp Pulse Resp BP Pulse Ox
98.3 F 90 27 118/53 95
03/15/25 04:15 03/15/25 06:00 03/15/25 06:00 03/15/25 06:00 03/15/25 06:00
Intake and Output
03/14/25 03/15/25 03/16/25
06:59 06:59 06:59
Intake Total 2619.7 / 2700.4 2974.2 / 2974.2
Output Total 1665 / 1665 3099 / 3099
Balance 954.7 / 1035.4 -124.8 / -124.8
SaO2 [ASV] 99
SaO2 [CPAP/PSV] 98
SaO2 [A/C] 100
SaO2 95
Nasal Cannula flow liters per 1
minute
Physical Exam
General: Comfortable (sitting up in bed, conversant with stronger voice than prior )
HEENT: Normocephalic and Anicteric
Cardiovascular: Irregular Rhythm (Irregularly irregular)
Respiratory: Clear (Clear to auscultation anteriorly) and Accessory Resp Muscle Use (None)
GI: Non Distended, Other (Colostomy bag with soft greenish stool) and Other (3 abdominal SUSAN drains; recently emptied, without much content; tubing with yellow fluid that appears more serous than purulent )
Neurology: Awake, Alert, Oriented and Depressed (seems somewhat down)
Skin: Warm and Dry
Labs/Micro/Reports
Lab Data
03/15/25 03:42
03/15/25 03:42
Laboratory Results
03/15/25
03:56
APTT 73.2 H
--- NOTE | 2025-03-15 08:00 | PTCARENOTE ---
Assumed care of patient with patient resting comfortably in bed. Hand-off validation of drips completed. He is aox3, fc, terrazas, afebrile. Patient's own glasses on. Patient is in A-fib with controlled rate in 80s-90s, blood pressure in acceptable
range. Generalized +1 edema, with +2 in the feet, and +3 in the scrotal area. Radial pulses easily palpable, DP pulses obtained with doppler. Patient is on RA with clear lung sounds, diminished in the bases. Abdomen is soft and nontender. Thick
green/brown output from ostomy, stoma beefy red. Patient is continent to urinal with clear yellow urine. Skin is c/d/i. Dressings for surgical sites and SUSAN sites changed. JPs irrigated per order. Patient OOB with help of 2 nurses and walker.
Abdominal binder in place. No pain at this time.
--- NOTE | 2025-03-15 08:14 | W.PN.CD ---
Today's Communication / Plan
-
continue IV heparin and metoprolol
PO lasix
re-weigh today
Impression / Plan
-
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
discharge on 02/25 following elective colostomy reversal for repeated perforated diverticulitis in 11/2024, found to have anastomotic leak CT imaging with pneumoperitoneum (02/27) requiring ex lap with bowel resection and end colostomy creation. He
remains in ICU in persistent Afib with RVR.
Acute abdomen / Shock
- improved, pressors off 03/07
- Likely septic with CT A/P on 03/05 showing multiple intra-abdominal abscesses, now s/p IR drain to yuliet-hepatic abscess 03/06
- Strips. Purulent fluid By IR and another drain placed on 03/12/25
- Continue antibiotics
- Treatment as per mutual funds agent and general surgery
- Still on TPN
Severe bradycardia with pauses
- Occurred on 03/04/2025 in the setting of Precedex, IV amiodarone, and beta-rey.
- No recurrence on telemetry
- bradycardia appears to have resolved
- back on metoprolol PO
Suspected permanent Afib, now with RVR this admission
- As above, he had severe bradycardia with long pauses in the setting of Precedex, IV amiodarone, and beta-rey
- Heart rates now controlled, on metoprolol tartrate 12.5 mg bid: avg 90s
- Continue heparin drip for AC, with monitoring of Hgb; previously on Eliquis (to resume when no more procedures needed)
HFimpEF: acute, improved
- Preop eval: Echo LVEF 40-45% and only mild valve disease but date of echo unclear, perhaps 07/2023.
- Cath: No obstructive CAD but date of cath uncertain, perhaps 08/2023.
- Echocardiogram 03/03/2025 with LVEF of 65%; RV appeared dilated with low normal systolic function.
- Currently Lasix is p.o. now.
HTN
-resumed home amlodipine 03/09 but had hypotension episodes.
-will hold norvasc for now.
- Lisinopril was held due to hypotension. Blood pressure is improved now. resumed at 2.5 mg twice a day.
Acute hypoxic respiratory failure
- extubated 03/08
Postoperative anastomotic leak status post exploratory laparotomy, colon resection and creation of end colostomy:
- Management as per Surgical team; on antibiotics.
Physical Exam
Vital Signs/Labs
Vital Signs
Temp Pulse Resp BP Pulse Ox
98.5 F 91 27 125/62 95
03/15/25 08:12 03/15/25 07:55 03/15/25 06:00 03/15/25 07:55 03/15/25 06:00
03/14/25 03/15/25 03/16/25
06:59 06:59 06:59
Actual Weight 108.8 kg 112.8 kg
03/15/25 03:42
03/15/25 03:42
PT 19.9 Sec (11.4-14.6) H 02/27/25 16:52
INR 1.67 02/27/25 16:52
APTT 73.2 Sec (23.4-35.0) H 03/15/25 03:56
Magnesium 2.1 mg/dl (1.6-2.3) 03/14/25 05:23
Triglycerides 76 mg/dl (10-149) 03/14/25 05:23
TSH 4.01 uIU/ml (0.47-4.68) 03/12/25 02:27
03/02/25 03/04/25 03/05/25
03:45 04:09 04:54
Zoi-J-Mcwtfwfefgx Pept [id number] [id number] 1980
03/07/25
03:14
Mrf-K-Bwdmpxxxhlt Pept 482
Physical Exam
Constitutional: No acute distress
EENT: Moist mucous membranes
Cardiovascular: Systolic murmur absent, Rhythm/rate is irregular and Pedal edema present
Respiratory: Respiratory effort normal
Neuro/Psych: AO x 3
Data Reviewed
-
Date of Service: March 15, 2025
EKG: Other (Tele: A fib 90s)
Labs: Labs Reviewed by me
[2025-03-15 08:39] LABS: Magnesium 1.8 mg/dl (1.6-2.3)
--- NOTE | 2025-03-15 09:40 | W.PN.GS2 ---
Today's Communication / Plan
-
IV abx
puree diet and thin liqs with ensure BID
PT as ayesha
Assessment / Plan
-
Assessment: 74 yo M POD 23 s/p reversal of end colostomy POD 17 s/p ex lap, colon resection, end colostomy creation for anastomotic leak
AFVSS
WBC trended up today
H/H stable
good ostomy function
LUQ drain placed on 03/05/25 upsized on 03/11/25 seropurulent fluid noted
RUQ drain placed 03/06/25 - seropurulent, clearing
RLQ drain placed 03/11 - serous
polymicrobial on cultures - ID following
Plan:
-- Puree diet with thin liquids
limited PO intake likely d/t swallow but improving
No further TPN, cont ensure BID
-- Abx: per ID, recs appreciated
-- continue PT/OT/ST, PT holiday today per pt request
-- Local wound care with wet to dry dressing, wound care following, eventually would place wound vac
-- Medical management as per ICU team
-- Likely step down tomorrow out of ICU
Subjective Data
-
Date of Service: March 15, 2025
AFVSS, exhausted from PT, pain controlled, denies n/v, limited appetite
Objective Data
-
Intake and Output
03/14/25 03/15/25 03/16/25
06:59 06:59 06:59
Intake Total 2619.7 / 2700.4 2974.2 / 2974.2
Output Total 1665 / 1665 3099 / 3099
Balance 954.7 / 1035.4 -124.8 / -124.8
Intake:
Oral fluids 460 / 460 1160 / 1160
IV fluids (Total) 526.7 / 546.4 480.2 / 480.2
Insulin (GP)100units/100ml Nss 68.2 / 69.4 54.7 / 54.7
heparin 458.5 / 477.0 425.5 / 425.5
IV piggybacks 200 / 200
TPN/PPN 1403 / 1464 1304 / 1304
Amount instilled into Drain ( 30 / 30 30 / 30
Total)
Left Abdomen Celso-Loyd C
Placed in IR
Right Lower Abdomen Celso-
Loyd C Placed in IR
Right Lower Celso-Loyd B
Right Upper Abdomen Celso-
Loyd A
Output:
Liquid stool amount 300 / 300 200 / 200
Colostomy 300 / 300 200 / 200
Drain Output (Total) 290 / 290 199 / 199
Left Abdomen Celso-Loyd C 50 / 50 113 / 113
Placed in IR
Right Lower Abdomen Celso- 70 / 70
Loyd C Placed in IR
Right Lower Celso-Loyd B 145 / 145 75 / 75
Right Upper Abdomen Celso-
Loyd A
Urine, Voided 1075 / 1075 2700 / 2700
Other:
How many times incontinent 1
MODERATE amount urine
How many times incontinent 1 1
SATURATED amount urine
Vital Signs
Temp Pulse Resp BP Pulse Ox
98.5 F 91 27 125/62 95
03/15/25 08:12 03/15/25 07:55 03/15/25 06:00 03/15/25 07:55 03/15/25 06:00
Lab Results
03/15/25 03:42
03/15/25 03:42
Calcium 8.2 mg/dl (8.4-10.2) L 03/15/25 03:42
Phosphorus 3.7 mg/dl (2.5-4.5) 03/14/25 05:23
Magnesium 1.8 mg/dl (1.6-2.3) 03/15/25 03:42
Total Bilirubin 0.4 mg/dl (0.2-1.3) 03/15/25 03:42
Direct Bilirubin 1.9 mg/dl (0.0-0.4) H 03/02/25 03:45
AST 30 U/L (17-59) 03/15/25 03:42
ALT 32 U/L (0-50) 03/15/25 03:42
Alkaline Phosphatase 174 U/L (38-126) H 03/15/25 03:42
Total Protein 5.7 g/dl (6.3-8.2) L 03/15/25 03:42
Albumin 2.0 g/dl (3.5-5.0) L 03/15/25 03:42
Physical Exam
-
Gen: NAD
Abd: soft, drains serous (RLQ) / seropurulent (RUQ/LUQ), stoma PPV with brown stool, midline incision open areas with exposed suture, granulating
Patient has a hoffman catheter: No
Patient has a central line: Yes
[2025-03-15 09:45] LABS: Glucose - Point of Care 160 mg/dl (70-99)
[2025-03-15] MEDS: ROXICODONE 5 MG PO ×2 (10:56→22:04)
[2025-03-15] MEDS: NOVOLOG FLEXPEN-MODERATE RESISTANCE 3 UNITS SC ×2 (11:41→16:54)
[2025-03-15 11:52] LABS: Glucose - Point of Care 213 mg/dl (70-99)
--- NOTE | 2025-03-15 12:03 | PTCARENOTE ---
Patient medicated for 5/10 pain with ordered pain medication. No change in assessment. Moderate dose sliding scale insulin ordered for patient at meal times. Encouraged Ensure intake.
--- NOTE | 2025-03-15 15:14 | W.SUR.PREOP ---
Addendum entered and electronically signed by Todd Craig MD 03/16/25 14:05:
Note entered in error
Original Note:
Pre-Operative Surgical Note
-
I have examined this patient prior to the performance of the scheduled procedure.
The patient's condition is unchanged from the time of the current History and
Physical and the patient is able to undergo the scheduled procedure.
--- NOTE | 2025-03-15 16:11 | PTCARENOTE ---
Patient is now resting back in bed. No complaints of pain at this time. No change in assessment.
--- NOTE | 2025-03-15 16:20 | CM ---
Addendum entered by Ivonne Hercules 03/15/25 16:33:
Patient sleeping. Placed [employer] list in room and called daughter Tammy to inform of new recommendation for SNF and to choose at least 4 preferences.
Original Note:
Heparin drip, TPN, IV/Zosyn, WBC 14.1, 3 abdominal drains, puree diet with thins and advance as tolerated. Discharge POC: Was acute. Now recommendation is SNF. Will provide family with Medicare. Gov list.
[2025-03-15 16:52] LABS: Glucose - Point of Care 244 mg/dl (70-99)
[2025-03-15] MEDS: LIPITOR 10 MG PO (17:42)
[2025-03-15 21:35] LABS: Glucose - Point of Care 225 mg/dl (70-99)
[2025-03-15] MEDS: MELATONIN 5 MG PO (22:04)
[2025-03-15] MEDS: NOVOLOG FLEXPEN 3 UNITS SC (23:36)
[2025-03-16] VITALS (20 sets, daily range): BP systolic 101–159; BP diastolic 50–101; BMI 38.7
--- NOTE | 2025-03-16 00:15 | PTCARENOTE ---
Pt alert and oriented, cooperative in care. BAZZI, generalized weakness but helps turn in bed. Cristy for pain PRN. Afebrile. Afib on monitor. PICC line intact. TPN/insulin off as ordered. Pulses palpable, doppler pulses. Anasarca +2. Room air/1L nc,
CPAP at HS (pt only wears for about an hour). Tolerating diet, decreased appetite. Accu checks AC/HS. Abd binder when OOB (at bedside). Ostomy with soft brown stool. JPX3. Midline incision. Urinal clear yellow urine. Skin as documented. Will monitor.
--- NOTE | 2025-03-16 04:07 | PTCARENOTE ---
Ectopy seen on monitor. Pt found picking at isra and isra dressing. Line noticeably pulled out some from previous location. MARKETING DATA SPECIALIST Sandra called to bedside to continue taking isra out. Patient reinforced on importance of not pulling lines/tubes.
Xray completed as ordered.
[2025-03-16 04:24] LABS: APTT 92.6 Sec (23.4-35.0)
[2025-03-16] MEDS: ZOSYN 50 IV ×3 (04:48→17:22)
[2025-03-16 04:55] LABS: Glucose - Point of Care 142 mg/dl (70-99)
--- NOTE | 2025-03-16 04:57 | PTCARENOTE ---
Pt bradycardic to 30s. Upon entrance into room, pt says he dozed off and felt light headed once he fell asleep. Educated patient on importance of wearing CPAP consistently. Patient agrees but has only been compliant for about an hour each night. EKG
completed. Labs sent. CPAP replaced by RT, currently resting. Will monitor.
[2025-03-16 05:09] LABS: Hematocrit 27.3 % (39.0-52.0); Hemoglobin 9.0 g/dL (13.0-18.0); Mean Corp Hgb Conc. 33.0 g/dL (33.0-37.0); Mean Corpuscular Volume 91.9 fL (80.0-94.0); Platelet Count 489 10^3/uL (130-400); Red Cell Dist. Width 14.8 % (11.5-14.5)
[2025-03-16 05:34] LABS: Blood Urea Nitrogen 36 mg/dl (9-20); Calcium 8.0 mg/dl (8.4-10.2); Carbon Dioxide 36 mmol/L (22-30); Chloride 103 mmol/L (98-107); Estimated Creatinine Clearance 81 ml/min; Glucose 120 mg/dl (70-99); Magnesium 1.9 mg/dl (1.6-2.3); Potassium 3.9 mmol/L (3.5-5.1); Sodium 140 mmol/L (135-145); eGFR > 60.00
[2025-03-16] MEDS: HEPARIN 25000 UNITS/250 ML IV (06:20)
--- NOTE | 2025-03-16 08:06 | W.PN.CD ---
Today's Communication / Plan
-
stable from cardiac perspective on oral regimen
resume eliquis 5mg bid today (discussed with surgery)
continue metoprolol tartrate 12.5mg bid, lisinopril 2.5mg bid, lasix 40mg bid
please call us back with additional questions
Impression / Plan
-
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
discharge on 02/25 following elective colostomy reversal for repeated perforated diverticulitis in 11/2024, found to have anastomotic leak CT imaging with pneumoperitoneum (02/27) requiring ex lap with bowel resection and end colostomy creation. He
remains in ICU in persistent Afib with RVR.
Acute abdomen / Shock
- improved, pressors off 03/07
- Likely septic with CT A/P on 03/05 showing multiple intra-abdominal abscesses, now s/p IR drain to yuliet-hepatic abscess 03/06
- Strips. Purulent fluid By IR and another drain placed on 03/12/25
- Continue antibiotics
- Treatment as per middle school assistant principal and general surgery
- Still on TPN
Severe bradycardia with pauses: resolved
- Occurred on 03/04/2025 in the setting of Precedex, IV amiodarone, and beta-rey.
- No recurrence on telemetry
- bradycardia appears to have resolved
- back on metoprolol PO
Suspected permanent Afib, now with RVR this admission
- As above, he had severe bradycardia with long pauses in the setting of Precedex, IV amiodarone, and beta-rey
- Heart rates now controlled, on metoprolol tartrate 12.5 mg bid: avg 80s-90s
- transition to eliquis 5mg b id
HFimpEF: acute, improved
- Preop eval: Echo LVEF 40-45% and only mild valve disease but date of echo unclear, perhaps 07/2023.
- Cath: No obstructive CAD but date of cath uncertain, perhaps 08/2023.
- Echocardiogram 03/03/2025 with LVEF of 65%; RV appeared dilated with low normal systolic function.
- Currently Lasix is p.o. now 40mg bid
HTN
-resumed home amlodipine 03/09 but had hypotension episodes.
-will hold norvasc for now.
- Lisinopril was held due to hypotension. Blood pressure is improved now. resumed at 2.5 mg twice a day.
Acute hypoxic respiratory failure
- extubated 03/08
Postoperative anastomotic leak status post exploratory laparotomy, colon resection and creation of end colostomy:
- Management as per Surgical team; on antibiotics.
Physical Exam
Vital Signs/Labs
Vital Signs
Temp Pulse Resp BP Pulse Ox
97.8 F 97 26 114/66 93
03/16/25 03:16 03/16/25 05:00 03/16/25 05:00 03/16/25 05:00 03/16/25 05:00
03/15/25 03/16/25 03/17/25
06:59 06:59 06:59
Actual Weight 112.8 kg 108.7 kg
03/16/25 04:45
03/16/25 04:40
PT 19.9 Sec (11.4-14.6) H 02/27/25 16:52
INR 1.67 02/27/25 16:52
APTT 92.6 Sec (23.4-35.0) H 03/16/25 03:52
Magnesium 1.9 mg/dl (1.6-2.3) 03/16/25 04:40
Magnesium Cancelled 03/16/25 04:40
Triglycerides 76 mg/dl (10-149) 03/14/25 05:23
TSH 4.01 uIU/ml (0.47-4.68) 03/12/25 02:27
03/02/25 03/04/25 03/05/25
03:45 04:09 04:54
Hmo-S-Orhsczysnwq Pept [id number] [id number] 1980
03/07/25
03:14
Qyj-Y-Kntfrrjshon Pept 482
Physical Exam
Constitutional: No acute distress
EENT: Moist mucous membranes
Cardiovascular: JVD pressure is normal, Systolic murmur absent, Rhythm/rate is irregular and Pedal edema present
Respiratory: Respiratory effort normal
Data Reviewed
-
Date of Service: March 16, 2025
EKG: Other (Tele: A fib 80s)
Labs: Labs Reviewed by me
--- NOTE | 2025-03-16 08:40 | PN.DE.MGMTRT ---
Insulin Management
- -
03/16/2025: Diabetes Management Follow up
74 year old man with (suspected permanent) A-Fib on Eliquis, HFmrEF 45% EF, HTN, h/o PE/DVT, BPH, GERD, h/o perforated diverticulitis and previous end colostomy with reversal who presented to [facility] ED after discharge on 02/25 following elective
colostomy reversal for repeated perforated diverticulitis in 11/2024, found to have anastomotic leak CT imaging with pneumoperitoneum (02/27) requiring ex lap with bowel resection and end colostomy creation on 02/27. Prior to admission was taking no
diabetes medications. A1C 6.2%, Cr 1.1, eGFR >60.
Pt extubated 03/09. He is awake, alert, oriented, sitting up in bed, doing well with pureed diet, unable to discuss diabetes care plan. Dtr at bedside.
POD # 24 s/p reversal of end colostomy POD # 18 s/p ex lap, colon resection, end colostomy creation for anastomotic leak.
Pureed diet was started on 03/10, appetite is improving, completed TPN.
Glucose range 213 to 225, requiring 3 units of corrective insulin while TPN continued to infuse. TPN stopped ~ 2100.
Fasting glucose 120v/142 POC.
Will continue moderate corrective insulin AC.
Discussed with Nurse. Will cont to follow.
Diabetes History
- -
Pre-Admission Diabetes Regimen
03/16/25
04:40
Creatinine 0.9
Lab Results
Hemoglobin A1c 6.2 % (4.0-5.6) H 02/28/25 02:57
Insulin Pump Settings
IP Diabetes Regimen
03/15/25 03/15/25 03/15/25
09:34 11:41 16:41
Glucose
POC Glucose 160 H 213 H 244 H
03/15/25 03/16/25 03/16/25
21:23 04:40 04:44
Glucose 120 H
POC Glucose 225 H 142 H
Patient Education
[2025-03-16] MEDS: NOVOLOG FLEXPEN-MODERATE RESISTANCE SC (09:22)
[2025-03-16] MEDS: DESENEX/MITRAZOL/ZEASORB 1 APPLIC TOPICAL ×2 (09:23→21:42)
[2025-03-16] MEDS: PROTONIX IV 40 MG IV (09:24)
[2025-03-16] MEDS: LASIX 40 MG PO ×2 (09:24→17:24)
[2025-03-16] MEDS: LOPRESSOR 12.5 MG PO ×2 (09:24→20:35)
[2025-03-16] MEDS: ZESTRIL 2.5 MG PO ×2 (09:24→20:36)
[2025-03-16] MEDS: NSS (PRESERVATIVE FREE) 10 ML IV (09:25)
[2025-03-16] MEDS: ELIQUIS 5 MG PO ×2 (09:27→20:35)
[2025-03-16 09:32] LABS: Glucose - Point of Care 118 mg/dl (70-99)
--- NOTE | 2025-03-16 09:35 | W.PN.ID1 ---
Date of Service
Date of Service: March 16, 2025
Today's Communication
Continue antibiotics.
Assessment / Plan
74-year-old male with a significant PMHx of A-fib, colostomy (08/2024) for perforated diverticulitis with subsequent elective reversal of colostomy on 02/21/25. On 02/27 he presented to the hospital with nausea and vomiting and was found to have free
air in the abdomen and underwent ex lap, colon resection, end colostomy creation for anastomotic leak.
#Anastomotic leak / perforated viscus
#Abdominal abscesses; s/p drainage
- Cultures with E. coli, Citrobacter, Enterococcus
#Leukocytosis
- Persists
#Bacteremia with bacillus species
- contamination
Recommendations:
- Intra-abdominal cultures with E. coli, Citrobacter, Enterococcus. All isolate susceptible to Zosyn.
- Continue with Zosyn 3.375 gm IV q.6 hours (d#18)
Follow WBC and temp curve. Leukocytosis slightly improved today.
Follow drain output.
Continue with supportive measures.
����������������������������������������������������������
Chief Complaint
-: Leukocytosis and Other (Intra-abdominal abscesses)
Subjective / Review of Systems
Review of Systems: No Fever and No Chills
Vital Signs / Physical Exam
Vital Signs
Vital Signs
Temp Pulse Resp BP Pulse Ox
98 F 93 27 114/63 93
03/16/25 08:00 03/16/25 08:00 03/16/25 08:00 03/16/25 08:00 03/16/25 08:00
Physical Exam
Constitutional: No Acute Distress, Comfortable, Non-toxic and Obese
Head: Normocephalic
Eyes: Sclera Anicteric
Cardiovascular: Irregular Rate and S1/S2; Negative S3/S4
Pulmonary: Clear and Non Labored; Negative Wheezes
Gastrointestinal: Soft, Non Tender, Non Distended and Other (Colostomy bag with soft brown stool, [address]; 2 on the right, 1 on the left, all draining seropurulent fluid.)
Extremities: Edema
Skin: Warm
Neurological: Awake and Alert
Psychological: Calm
Objective Data
Lab Data
Lab Results
03/16/25 04:45
03/16/25 04:40
PT 19.9 Sec (11.4-14.6) H 02/27/25 16:52
INR 1.67 02/27/25 16:52
APTT 92.6 Sec (23.4-35.0) H 03/16/25 03:52
Estimated Creat Clear 81 ml/min 03/16/25 04:40
Lactic Acid 1.5 mmol/L (0.7-2.0) 03/01/25 03:18
Total Bilirubin 0.4 mg/dl (0.2-1.3) 03/15/25 03:42
AST 30 U/L (17-59) 03/15/25 03:42
ALT 32 U/L (0-50) 03/15/25 03:42
Alkaline Phosphatase 174 U/L (38-126) H 03/15/25 03:42
Most recent labs reviewed.
Micro Results:
03/05/25 17:11 Anaerobic Culture - Final
Abdomen
03/05/25 11:35 Blood Culture - Final
Blood/Venous No Growth - Final Report
03/06/25 10:50 Wound Culture - Final
Abdomen Escherichia coli
Citrobacter youngae
Enterococcus faecalis
Gram Stain - Final
03/05/25 17:11 Wound Culture - Final
Abdomen Escherichia coli
Citrobacter youngae
Enterococcus faecalis
Gram Stain - Final
03/01/25 20:44 Blood Culture - Final
Blood/Venous Bacillus species,not anthracis
Gram Stain - Final
03/01/25 19:46 Blood Culture - Final
Blood/Venous No Growth - Final Report
Wound/abscess/other Cult Final 03/05/2025
Few Escherichia coli
Few Citrobacter youngae
Moderate Enterococcus faecalis
Organism 1 Escherichia coli
Organism 2 Citrobacter youngae
Organism 3 Enterococcus faecalis
E.COLI C. YOUNGAE ENTFCL
M.I.C. RX M.I.C. RX M.I.C. RX
--------- --- --------- --- --------- ---
Amoxicillin/Potas. Clavulanate <=8/4 S >16/8 R
Ampicillin <=8 S >16 R <=2 S
Ampicillin/Sulbactam <=4/2 S >16/8 R
Aztreonam <=4 S >16 R
Cefazolin <=2 S >16 R
Cefepime <=2 S
Ceftazidime >16 R
Ceftriaxone >2 R
Ertapenem <=0.5 S <=0.5 S
Ciprofloxacin <=0.25 S <=0.25 S
Gentamicin <=2 S <=2 S
Gentamicin Synergy Screen >500 R
Meropenem <=1 S <=1 S
Piperacillin/Tazobactam <=8 S <=8 S
Tetracycline <=4 S <=4 S
Tobramycin <=2 S <=2 S
Trimethoprim/Sulfamethoxazole <=2/38 S <=2/38 S
Vancomycin 2 S
Imaging:
03/11/2025 CT abdomen/pelvis: again seen are multiple intra-abdominal fluid collections. There has been interval placement of percutaneous drainage catheters with improvement in size of both collections although significant residual fluid
collections remain, particularly within the left upper quadrant.
03/05/2025: CT Chest/abd/pel W Iv Contrast: Postoperative abdomen with developing intra-abdominal abscesses in the left upper quadrant and right upper quadrant of the abdomen, and smaller probable developing abscesses in the upper abdomen inferior
to the distal stomach and in the anterior pelvis deep to the anterior pelvic wall.
Small bilateral pleural effusions and bilateral lower lobe compressive atelectasis.
02/27/2025: CT Abd/pel W Iv And Oral Contrast: 1. Postoperative leak at the left colonic anastomosis, with extraluminal contrast. Large degree of pneumoperitoneum.2. Trace bilateral pleural effusions with associated probable atelectasis. Cannot rule
out superimposed left lower lobe pneumonia.
--- NOTE | 2025-03-16 09:48 | W.PN.GS2 ---
Today's Communication / Plan
-
Ensure BID
IV abx
PT/OT/FURNITURE PACKER
Assessment / Plan
-
Assessment: 74 yo M POD 24 s/p reversal of end colostomy POD 18 s/p ex lap, colon resection, end colostomy creation for anastomotic leak
AFVSS
WBC improved
H/H stable
good ostomy function
LUQ drain placed on 03/05/25 upsized on 03/11/25 seropurulent fluid noted
RUQ drain placed 03/06/25 - seropurulent, clearing
RLQ drain placed 03/11 - serous
polymicrobial on cultures - ID following
Plan:
-- Puree diet with thin liquids
limited PO intake
ensure BID
-- Abx: per ID, recs appreciated
-- continue PT/OT/ST
-- Local wound care with wet to dry dressing, wound care following, eventually would place wound vac
-- Medical management as per ICU team
-- Ready for step down out of ICU
Subjective Data
-
Date of Service: March 16, 2025
Slowly improving, feels exhausted, pain is controlled, poor appetite
Objective Data
-
Intake and Output
03/15/25 03/16/25 03/17/25
06:59 06:59 06:59
Intake Total 2974.2 / 3042.7 2544.0 / 2562.5 55.5 / 55.5
Output Total 3099 / 3099 2225 / 2225
Balance -124.8 / -56.3 319.0 / 337.5 55.5 / 55.5
Intake:
Oral fluids 1160 / 1160 1220 / 1220
IV fluids (Total) 480.2 / 498.7 444.0 / 462.5 55.5 / 55.5
Insulin (GP)100units/100ml Nss 54.7 / 54.7 0 / 0
heparin 425.5 / 444.0 444.0 / 462.5 55.5 / 55.5
IV piggybacks 150 / 150
TPN/PPN 1304 / 1354 700 / 700
Amount instilled into Drain ( 30 / 30 30 / 30
Total)
Left Abdomen Celso-Loyd C
Placed in IR
Right Lower Celso-Loyd B
Right Upper Abdomen Celso-
Loyd A
Output:
Liquid stool amount 200 / 200
Colostomy 200 / 200
Drain Output (Total) 199 / 199 100 / 100
Left Abdomen Celso-Loyd C 113 / 113 45 / 45
Placed in IR
Right Lower Celso-Loyd B 75 / 75 45 / 45
Right Upper Abdomen Celso-
Loyd A
Urine, Voided 2700 / 2700 2125 / 2125
Other:
How many times incontinent 1
SATURATED amount urine
Number of approximated LARGE 1
amounts of urine
Vital Signs
Temp Pulse Resp BP Pulse Ox
98 F 93 18 127/69 94
03/16/25 08:00 03/16/25 09:00 03/16/25 09:00 03/16/25 09:00 03/16/25 09:00
Lab Results
03/16/25 04:45
03/16/25 04:40
Calcium 8.0 mg/dl (8.4-10.2) L 03/16/25 04:40
Phosphorus 3.7 mg/dl (2.5-4.5) 03/14/25 05:23
Magnesium 1.9 mg/dl (1.6-2.3) 03/16/25 04:40
Magnesium Cancelled 03/16/25 04:40
Total Bilirubin 0.4 mg/dl (0.2-1.3) 03/15/25 03:42
Direct Bilirubin 1.9 mg/dl (0.0-0.4) H 03/02/25 03:45
AST 30 U/L (17-59) 03/15/25 03:42
ALT 32 U/L (0-50) 03/15/25 03:42
Alkaline Phosphatase 174 U/L (38-126) H 03/15/25 03:42
Total Protein 5.7 g/dl (6.3-8.2) L 03/15/25 03:42
Albumin 2.0 g/dl (3.5-5.0) L 03/15/25 03:42
Physical Exam
-
Gen: NAD
Abd: soft, minimal ttp, upper drains seropurulent, lower drain clear serous, stoma with thick stool
Patient has a hoffman catheter: No
Patient has a central line: Yes
--- NOTE | 2025-03-16 11:19 | PTCARENOTE ---
Pt c/o feeling hot once sitting on side of bed and wanted to lay back in bed. Denied feeling dizzy just said 'red'. BP elevated and more work of breathing, temp in room turned back down and fan put on. After a minute or so, sx resolved and pt
able to stand to get oob. Family at bedside once in chair. VSS. Pt without complaint.
--- NOTE | 2025-03-16 12:20 | PTCARENOTE ---
Report given to Radha who will assume care of pt upon transfer. Daughter Tammy at bedside at time of transfer.
[2025-03-16] MEDS: NOVOLOG FLEXPEN-MODERATE RESISTANCE 3 UNITS SC ×2 (12:32→17:21)
[2025-03-16 12:41] LABS: Glucose - Point of Care 233 mg/dl (70-99)
--- NOTE | 2025-03-16 13:28 | PTCARENOTE ---
Pt received from ICU. Assessment as documented. Afib on tele monitor. VSS. Surgical dressings C/D/I. Daughter at bedside, updated on plan of care. Able to make needs known, call velazquez within reach.
--- NOTE | 2025-03-16 15:15 | CM ---
Downgraded to IMU Room 3356. 3 abdominal drains remain, WBC @ 11.8 (improving), Hgb 9.0, IV/Zosyn, Pureed diet with thins, limited intake, added Ensure BID. Therapy recommendation for SNF. [employer] list previously provided and message left for
daughter. Daughter spoke with therapy and is hopeful patient will be able to go to acute rehab. Discharge POC: Currently SNF. Will get preferences.
[2025-03-16 16:55] LABS: Glucose - Point of Care 204 mg/dl (70-99)
[2025-03-16] MEDS: LIPITOR 10 MG PO (17:22)
--- NOTE | 2025-03-16 18:05 | VATNOTE ---
Discussed need for PICC line with Drs. Sandoval and Juan Jose. Per Dr. Ingram, it is unclear how long this pt with require IV antibiotics and he will have a better idea of how long the antibiotics will be needed after a repeat CT scan which Dr. Sandoval
states will be ordered for Friday. Will continue to follow with Dr. Ingram after CT scan on Friday.
--- NOTE | 2025-03-16 21:35 | PTCARENOTE ---
Assumed care of pt from dayshift RN, after change of shift report. Family at bedside. anxious at times. Took hs pills crushed with apple sauce. wearing abdominal binder. assessment ad documented. call light in reach.
[2025-03-16] MEDS: MELATONIN 5 MG PO (21:42)
[2025-03-16 21:58] LABS: Glucose - Point of Care 184 mg/dl (70-99)
[2025-03-17] VITALS (16 sets, daily range): BP systolic 95–125; BP diastolic 50–68; PULSE 116–117; O2SAT 98–99; BMI 37.3
[2025-03-17] MEDS: ZOSYN 50 IV ×4 (00:32→17:10)
[2025-03-17 04:59] LABS: Hematocrit 24.9 % (39.0-52.0); Hemoglobin 8.1 g/dL (13.0-18.0); Mean Corp Hgb Conc. 32.5 g/dL (33.0-37.0); Mean Corpuscular Volume 93.3 fL (80.0-94.0); Platelet Count 475 10^3/uL (130-400); Red Cell Dist. Width 14.8 % (11.5-14.5)
[2025-03-17 08:14] LABS: Glucose - Point of Care 130 mg/dl (70-99)
[2025-03-17] MEDS: NOVOLOG FLEXPEN-MODERATE RESISTANCE SC ×3 (09:04→17:10)
[2025-03-17] MEDS: DESENEX/MITRAZOL/ZEASORB 1 APPLIC TOPICAL ×2 (09:06→19:33)
[2025-03-17] MEDS: LOPRESSOR 12.5 MG PO ×2 (09:07→19:32)
[2025-03-17] MEDS: LASIX 40 MG PO ×2 (09:07→17:10)
[2025-03-17] MEDS: ELIQUIS 5 MG PO ×2 (09:07→19:32)
[2025-03-17] MEDS: PROTONIX IV 40 MG IV (09:08)
[2025-03-17] MEDS: NSS (PRESERVATIVE FREE) 10 ML IV (09:08)
--- NOTE | 2025-03-17 09:08 | PN.DE.MGMTRT ---
Insulin Management
- -
03/17/2025: Diabetes Management Follow up
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
colostomy reversal for repeated perforated diverticulitis in 11/2024, found to have anastomotic leak CT imaging with pneumoperitoneum (02/27) requiring ex lap with bowel resection and end colostomy creation on 02/27. Prior to admission was taking no
diabetes medications. A1C 6.2%, Cr 1.1, eGFR >60.
Pt extubated 03/09. He is awake, alert, oriented, sitting up in bed, doing well with pureed diet, unable to discuss diabetes care plan. Dtr at bedside.
POD # 25 s/p reversal of end colostomy POD # 19 s/p ex lap, colon resection, end colostomy creation for anastomotic leak.
Pureed diet was started on 03/10, appetite is improving, completed TPN 03/15 @ 8pm.
Glucose range 142 to 243, requiring 3 units of corrective insulin at lunch and dinner.
Fasting glucose 130. Discussed with patient glucose > 200, he and daughters are agreeable to low dose lantus to keep glucose < 180. 8 units lantus 12 noon to start today. Will assess daily to determine if needed ongoing.
Will continue moderate corrective insulin AC.
Discussed with Nurse. Will cont to follow.
Diabetes History
- -
Pre-Admission Diabetes Regimen
Lab Results
Hemoglobin A1c 6.2 % (4.0-5.6) H 02/28/25 02:57
Insulin Pump Settings
IP Diabetes Regimen
03/16/25 03/16/25 03/16/25
09: 12:30 16:43
POC Glucose 118 H 233 H 204 H
03/16/25 03/17/25
21:46 08:03
POC Glucose 184 H 130 H
Patient Education
--- NOTE | 2025-03-17 09:37 | W.PN.ID1 ---
Addendum entered and electronically signed by Riley Ingram DO 03/17/25 11:28:
I saw and evaluated the patient. I reviewed the resident�s note and agree with findings and plan as documented in the resident�s note.
Original Note:
Date of Service
Date of Service: March 17, 2025
Today's Communication
- Continue antibiotics
Assessment / Plan
74-year-old male with a significant PMHx of A-fib, colostomy (08/2024) for perforated diverticulitis with subsequent elective reversal of colostomy on 02/21/25. On 02/27 he presented to the hospital with nausea and vomiting and was found to have free
air in the abdomen and underwent ex lap, colon resection, end colostomy creation for anastomotic leak.
#Anastomotic leak / perforated viscus
#Abdominal abscesses; s/p drainage
- Cultures with E. coli, Citrobacter, Enterococcus
#Leukocytosis
- Improving
#Bacteremia with bacillus species
- contamination
Recommendations:
- Intra-abdominal cultures with E. coli, Citrobacter, Enterococcus. All isolate susceptible to Zosyn.
- Continue with Zosyn 3.375 gm IV q.6 hours (d#19)
Follow WBC and temp curve. Leukocytosis continues to improve
Follow drain output.
Continue with supportive measures.
����������������������������������������������������������
Chief Complaint
-: Leukocytosis and Other (Intra-abdominal abscesses)
Subjective / Review of Systems
Patient is doing well, reports no acute concerns today. No reported fever or chills, but was wrapped with many blankets this morning. Drains are continuing to drain purulent fluid.
Review of Systems: No Fever, No Chills, No Cough, No Chest Pain, No Nausea, No Vomiting and No Diarrhea
Vital Signs / Physical Exam
Vital Signs
Vital Signs
Temp Pulse Resp BP Pulse Ox
97.5 F 119 27 114/59 95
03/17/25 08:13 03/17/25 09:07 03/17/25 07:00 03/17/25 06:00 03/17/25 07:00
Physical Exam
Constitutional: No Acute Distress, Comfortable and Non-toxic
Head: Normocephalic
Eyes: Sclera Anicteric
Cardiovascular: Irregular Rate, S1/S2 and Peripheral Edema
Pulmonary: Clear; Negative Wheezes
Gastrointestinal: Soft, Non Tender, Non Distended and Other (Colostomy bag with soft brown stool, [address] 2 on the right 1 on the left, all draining purulent fluid)
Extremities: Edema
Skin: Warm
Neurological: Awake, Alert, Oriented and AO x 3
Psychological: Calm
Objective Data
Lab Data
Lab Results
03/17/25 04:45
03/16/25 04:40
PT 19.9 Sec (11.4-14.6) H 02/27/25 16:52
INR 1.67 02/27/25 16:52
APTT 92.6 Sec (23.4-35.0) H 03/16/25 03:52
Estimated Creat Clear 81 ml/min 03/16/25 04:40
Lactic Acid 1.5 mmol/L (0.7-2.0) 03/01/25 03:18
Total Bilirubin 0.4 mg/dl (0.2-1.3) 03/15/25 03:42
AST 30 U/L (17-59) 03/15/25 03:42
ALT 32 U/L (0-50) 03/15/25 03:42
Alkaline Phosphatase 174 U/L (38-126) H 03/15/25 03:42
Most recent labs reviewed.
Micro Results:
03/05/25 17:11 Anaerobic Culture - Final
Abdomen
03/05/25 11:35 Blood Culture - Final
Blood/Venous No Growth - Final Report
03/06/25 10:50 Wound Culture - Final
Abdomen Escherichia coli
Citrobacter youngae
Enterococcus faecalis
Gram Stain - Final
03/05/25 17:11 Wound Culture - Final
Abdomen Escherichia coli
Citrobacter youngae
Enterococcus faecalis
Gram Stain - Final
03/01/25 20:44 Blood Culture - Final
Blood/Venous Bacillus species,not anthracis
Gram Stain - Final
03/01/25 19:46 Blood Culture - Final
Blood/Venous No Growth - Final Report
Wound/abscess/other Cult Final 03/05/2025
Few Escherichia coli
Few Citrobacter youngae
Moderate Enterococcus faecalis
Organism 1 Escherichia coli
Organism 2 Citrobacter youngae
Organism 3 Enterococcus faecalis
E.COLI C. YOUNGAE ENTFCL
M.I.C. RX M.I.C. RX M.I.C. RX
--------- --- --------- --- --------- ---
Amoxicillin/Potas. Clavulanate <=8/4 S >16/8 R
Ampicillin <=8 S >16 R <=2 S
Ampicillin/Sulbactam <=4/2 S >16/8 R
Aztreonam <=4 S >16 R
Cefazolin <=2 S >16 R
Cefepime <=2 S
Ceftazidime >16 R
Ceftriaxone >2 R
Ertapenem <=0.5 S <=0.5 S
Ciprofloxacin <=0.25 S <=0.25 S
Gentamicin <=2 S <=2 S
Gentamicin Synergy Screen >500 R
Meropenem <=1 S <=1 S
Piperacillin/Tazobactam <=8 S <=8 S
Tetracycline <=4 S <=4 S
Tobramycin <=2 S <=2 S
Trimethoprim/Sulfamethoxazole <=2/38 S <=2/38 S
Vancomycin 2 S
Imaging:
03/11/2025 CT abdomen/pelvis: again seen are multiple intra-abdominal fluid collections. There has been interval placement of percutaneous drainage catheters with improvement in size of both collections although significant residual fluid
collections remain, particularly within the left upper quadrant.
03/05/2025: CT Chest/abd/pel W Iv Contrast: Postoperative abdomen with developing intra-abdominal abscesses in the left upper quadrant and right upper quadrant of the abdomen, and smaller probable developing abscesses in the upper abdomen inferior
to the distal stomach and in the anterior pelvis deep to the anterior pelvic wall.
Small bilateral pleural effusions and bilateral lower lobe compressive atelectasis.
02/27/2025: CT Abd/pel W Iv And Oral Contrast: 1. Postoperative leak at the left colonic anastomosis, with extraluminal contrast. Large degree of pneumoperitoneum.2. Trace bilateral pleural effusions with associated probable atelectasis. Cannot rule
out superimposed left lower lobe pneumonia.
--- NOTE | 2025-03-17 09:58 | W.PN.GS2 ---
Today's Communication / Plan
-
Abx
PT/OT/UPKEEP MECHANIC
Assessment / Plan
-
Assessment: 74 yo M POD 25 s/p reversal of end colostomy POD 19 s/p ex lap, colon resection, end colostomy creation for anastomotic leak
AFVSS
WBC normalized
H/H stable
good ostomy function
LUQ drain placed on 03/05/25 upsized on 03/11/25 seropurulent fluid, clearing
RUQ drain placed 03/06/25 - seropurulent, clearing
RLQ drain placed 03/11 - serous
polymicrobial on cultures - ID following
Plan:
-- Puree diet with thin liquids
limited PO intake
ensure BID
-- Abx: per ID, recs appreciated
-- continue PT/OT/ST
-- Local wound care with wet to dry dressing, wound care following, eventually would place wound vac
-- Medical management as per Hospitalist
Subjective Data
-
Date of Service: March 17, 2025
HANDYS, working with PT, remains weak, pain controlled, appetitte returning
Objective Data
-
Intake and Output
03/16/25 03/17/25 03/18/25
06:59 06:59 06:59
Intake Total 2544.0 / 2562.5 285.5 / 285.5
Output Total 2225 / 2225 1500 / 1500
Balance 319.0 / 337.5 -1214.5 / -1214.5
Intake:
Oral fluids 1220 / 1220 200 / 200
IV fluids (Total) 444.0 / 462.5 55.5 / 55.5
Insulin (GP)100units/100ml Nss 0 / 0
heparin 444.0 / 462.5 55.5 / 55.5
IV piggybacks 150 / 150
TPN/PPN 700 / 700
Amount instilled into Drain ( 30 30 / 30
Total)
Left Abdomen Celso-Loyd C
Placed in IR
Right Lower Celso-Loyd B
Right Upper Abdomen Celso-
Loyd A
Output:
Liquid stool amount 365 / 365
Colostomy 365 / 365
Drain Output (Total) 100 / 100 210 / 210
Left Abdomen Celso-Loyd C 105 / 105
Placed in IR
Right Lower Celso-Loyd B 85 / 85
Right Upper Abdomen Celso-
Loyd A
Urine, Voided 5 / 5 925 / 925
Other:
How many times incontinent 1
SATURATED amount urine
Number of approximated LARGE 1
amounts of urine
Vital Signs
Temp Pulse Resp BP Pulse Ox
97.5 F 119 27 114/59 95
03/17/25 08:13 03/17/25 09:07 03/17/25 07:00 03/17/25 06:00 03/17/25 07:00
Lab Results
03/17/25 04:45
03/16/25 04:40
Calcium 8.0 mg/dl (8.4-10.2) L 03/16/25 04:40
Phosphorus 3.7 mg/dl (2.5-4.5) 03/14/25 05:23
Magnesium 1.9 mg/dl (1.6-2.3) 03/16/25 04:40
Magnesium Cancelled 03/16/25 04:40
Total Bilirubin 0.4 mg/dl (0.2-1.3) 03/15/25 03:42
Direct Bilirubin 1.9 mg/dl (0.0-0.4) H 03/02/25 03:45
AST 30 U/L (17-59) 03/15/25 03:42
ALT 32 U/L (0-50) 03/15/25 03:42
Alkaline Phosphatase 174 U/L (38-126) H 03/15/25 03:42
Total Protein 5.7 g/dl (6.3-8.2) L 03/15/25 03:42
Albumin 2.0 g/dl (3.5-5.0) L 03/15/25 03:42
Physical Exam
-
Gen: NAD
Abd: soft, binder in place, drains clearing
Patient has a hoffman catheter: No
Patient has a central line: Yes
[2025-03-17] MEDS: ZESTRIL PO (10:35)
--- NOTE | 2025-03-17 10:39 | PTCARENOTE ---
Assumed care of patient at beginning of this shift from previous RN with own cpap in use; removed once patient full awake. Colostomy draining soft stool; emptied this morning. 3 bong drains with purulent drainage: the one drain on the R appears to
have just one suture holding in place and possibly has pulled out a bit (unsure). This nurse called IR and spoke with nurse Valery who stated tech will TT IRAD physician Dr Walden.
Initial BP 105/54 with HR in low 100s; administered scheduled metoprolol 12.5mg po and lasix 40mg po as ordered. Patient also due for lisinopril 2.5mg. TT sent to Dr Harrison to make him aware; instructed to hold lisinopril at this time.
Patient Ox3, flat affect; needs encouragement. He proactively asked to work with PT; daughter visiting and stated patient is due for therapy today. Denies pain at this time. See worklist for full assessment and vital signs.
[2025-03-17] MEDS: TYLENOL 650 MG PO (11:35)
[2025-03-17 11:40] LABS: Glucose - Point of Care 134 mg/dl (70-99)
[2025-03-17] MEDS: LANTUS 0.08 UNITS SC (12:01)
--- NOTE | 2025-03-17 12:34 | PTCARENOTE ---
Accu check 134; patient due for 8 units lantus. Verified with Angela Zaragoza via TT that patient may get lantus as ordered.
--- NOTE | 2025-03-17 16:08 | CM ---
Following up on Patient. Daughter Tammy reached out to SHAQUILLE Ruggiero to provide more options for SNF, but would like Acute Rehab first. [facility]QUILLE Ruggiero sent referrals to 5 SNF and now waiting for patient to be medically ready. PLAN: Acute vs. SNF
[2025-03-17 16:43] LABS: Glucose - Point of Care 148 mg/dl (70-99)
[2025-03-17] MEDS: LIPITOR 10 MG PO (17:10)
[2025-03-17] MEDS: ZESTRIL 2.5 MG PO (19:32)
[2025-03-17 21:45] LABS: Glucose - Point of Care 222 mg/dl (70-99)
[2025-03-17] MEDS: MELATONIN 5 MG PO (22:22)
[2025-03-18] VITALS (12 sets, daily range): BP systolic 97–121; BP diastolic 47–74; BMI 36.9
[2025-03-18] MEDS: ZOSYN 50 IV ×5 (00:05→23:11)
--- NOTE | 2025-03-18 03:15 | PTCARENOTE ---
Assumed care of pt from previous Rn after change of shift report. pt is aa0x3. pt expressed want to eat dinner, this RN helped pt with set up and encouraged him to attempt to feed himself. pt successfully ate a moderate amount of his dinner.
daughter at bedside. Pt using urinal to void. colostomy putting put soft brownish green stool, burped multiple x's. 3 jps with purulent drainage. abdominal binder in place. pt wearing own cpap whilst asleep.
[2025-03-18 08:12] LABS: Glucose - Point of Care 135 mg/dl (70-99)
[2025-03-18] MEDS: NOVOLOG FLEXPEN-MODERATE RESISTANCE SC (08:32)
[2025-03-18] MEDS: ELIQUIS 5 MG PO ×2 (08:33→20:23)
[2025-03-18] MEDS: LASIX 40 MG PO ×2 (08:33→16:59)
[2025-03-18] MEDS: ZESTRIL 2.5 MG PO ×2 (08:33→20:23)
[2025-03-18] MEDS: LANTUS 0.08 UNITS SC (08:33)
[2025-03-18] MEDS: LOPRESSOR 12.5 MG PO ×2 (08:33→20:23)
[2025-03-18] MEDS: PROTONIX IV 40 MG IV (08:34)
[2025-03-18] MEDS: NSS (PRESERVATIVE FREE) 10 ML IV (08:34)
[2025-03-18] MEDS: DESENEX/MITRAZOL/ZEASORB 1 APPLIC TOPICAL ×2 (08:47→22:23)
--- NOTE | 2025-03-18 09:07 | PN.DE.MGMTRT ---
Insulin Management
- -
03/18/2025: Diabetes Management Follow up
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
colostomy reversal for repeated perforated diverticulitis in 11/2024, found to have anastomotic leak CT imaging with pneumoperitoneum (02/27) requiring ex lap with bowel resection and end colostomy creation on 02/27. Prior to admission was taking no
diabetes medications. A1C 6.2%, Cr 1.1, eGFR >60.
Pt extubated 03/09. He is awake, alert, oriented, sitting up in bed, doing well with pureed diet, unable to discuss diabetes care plan. Dtr at bedside.
POD # 26 s/p reversal of end colostomy POD # 20 s/p ex lap, colon resection, end colostomy creation for anastomotic leak.
Pureed diet was started on 03/10, appetite is improving, completed TPN.
03/16 Glucose range 213 to 225, Lantus 8 units was started yesterday AM.
Glucose improved to range of 130 to 148 throughout the day, fasting 135 today.
Will make no change to current regimen: Lantus 8 units in AM and moderate corrective insulin AC.
Discussed with Nurse. Will cont to follow.
Diabetes History
- -
Type of Diabetes: 2 requiring insulin
Pre-Admission Diabetes Regimen
Lab Results
Hemoglobin A1c 6.2 % (4.0-5.6) H 02/28/25 02:57
Insulin Pump Settings
IP Diabetes Regimen
03/17/25 03/17/25 03/17/25
11:27 16:28 21:33
POC Glucose 134 H 148 H 222 H
03/18/25
08:00
POC Glucose 135 H
Meal type: Breakfast
Amount consumed: 100%
Patient Education
--- NOTE | 2025-03-18 11:03 | W.PN.GS2 ---
Addendum entered and electronically signed by Sahil Sandoval MD 03/18/25 12:49:
CT reviewed. Clinically he is improving. Contained extraluminal air near sigmoid staple line noted. Will cont abx, monitor, re-image if any clinical decline.
Original Note:
Today's Communication / Plan
-
As above
Assessment / Plan
-
Assessment: 74 yo M POD 26 s/p reversal of end colostomy POD 20 s/p ex lap, colon resection, end colostomy creation for anastomotic leak
AFVSS
WBC normalized
H/H stable
good ostomy function
CT 03/18/25 with improved collections, nearly resolved
LUQ drain placed on 03/05/25 upsized on 03/11/25 seropurulent fluid, clearing
RUQ drain placed 03/06/25 - seropurulent, clearing
RLQ drain placed 03/11 - serous
polymicrobial on cultures - ID following
Plan:
-- Puree diet with thin liquids, will discuss diet advancement with speech
limited PO intake
ensure BID
-- Abx: per ID, recs appreciated
-- continue PT/OT/ST
-- Local wound care with wet to dry dressing, wound care following, eventually would place wound vac, tentatively Friday
-- Medical management as per Hospitalist
Subjective Data
-
Date of Service: March 18, 2025
AFVSS, working with PT, pain controlled, ayesha diet, appetite improving
Objective Data
-
Intake and Output
03/17/25 03/18/25 03/19/25
06:59 06:59 06:59
Intake Total 285.5 / 285.5 30 / 30
Output Total 1500 / 1500 997 / 997
Balance -1214.5 / -1214.5 -967 / -967
Intake:
Oral fluids 200 / 200
IV fluids (Total) 55.5 / 55.5
heparin 55.5 / 55.5
Amount instilled into Drain (
Total)
Left Abdomen Celso-Loyd C
Placed in IR
Right Lower Celso-Loyd B
Right Upper Abdomen Celso-
Loyd A
Output:
Liquid stool amount 100 / 100
Colostomy 100 / 100
Drain Output (Total) 210 / 210 47 / 47
Left Abdomen Celso-Loyd C 105 / 105
Placed in IR
Right Lower Celso-Loyd B 85 85
Right Upper Abdomen Celso-
Loyd A
Urine, Voided 925 / 925 850 / 850
Other:
How many times incontinent 1
SATURATED amount urine
Vital Signs
Temp Pulse Resp BP Pulse Ox
97.7 F 102 21 113/58 99
03/18/25 07:25 03/18/25 08:33 03/18/25 03:00 03/18/25 08:33 03/18/25 03:10
Lab Results
03/17/25 04:45
03/16/25 04:40
Calcium 8.0 mg/dl (8.4-10.2) L 03/16/25 04:40
Phosphorus 3.7 mg/dl (2.5-4.5) 03/14/25 05:23
Magnesium 1.9 mg/dl (1.6-2.3) 03/16/25 04:40
Magnesium Cancelled 03/16/25 04:40
Total Bilirubin 0.4 mg/dl (0.2-1.3) 03/15/25 03:42
Direct Bilirubin 1.9 mg/dl (0.0-0.4) H 03/02/25 03:45
AST 30 U/L (17-59) 03/15/25 03:42
ALT 32 U/L (0-50) 03/15/25 03:42
Alkaline Phosphatase 174 U/L (38-126) H 03/15/25 03:42
Total Protein 5.7 g/dl (6.3-8.2) L 03/15/25 03:42
Albumin 2.0 g/dl (3.5-5.0) L 03/15/25 03:42
Physical Exam
-
Gen: NAD
Abd: soft, approp ttp, stoma with brown stool, midline wound granulating, drains clearing, upper drains remain seropurulent, lower drain with no output
Patient has a hoffman catheter: No
Patient has a central line: Yes
[2025-03-18 12:04] LABS: Glucose - Point of Care 199 mg/dl (70-99)
--- NOTE | 2025-03-18 12:22 | W.PN.ID1 ---
Date of Service
Date of Service: March 18, 2025
Today's Communication
Continue Zosyn.
Assessment / Plan
74-year-old male with a significant PMHx of A-fib, colostomy (08/2024) for perforated diverticulitis with subsequent elective reversal of colostomy on 02/21/25. On 02/27 he presented to the hospital with nausea and vomiting and was found to have free
air in the abdomen and underwent ex lap, colon resection, end colostomy creation for anastomotic leak.
#Anastomotic leak / perforated viscus
#Abdominal abscesses; s/p drainage
- Cultures with E. coli, Citrobacter, Enterococcus
#Leukocytosis
- Improving
#Bacteremia with bacillus species
- contamination
Recommendations:
- Intra-abdominal cultures with E. coli, Citrobacter, Enterococcus. All isolate susceptible to Zosyn.
- Continue with Zosyn 3.375 gm IV q.6 hours (d#20)
Follow WBC and temp curve. Prior leukocytosis showed improvement.
Follow drain output.
Continue with supportive measures.
����������������������������������������������������������
Chief Complaint
-: Leukocytosis and Other (Intra-abdominal abscesses)
Subjective / Review of Systems
Review of Systems: No Fever, No Chills and No Abdominal Pain
Vital Signs / Physical Exam
Vital Signs
Vital Signs
Temp Pulse Resp BP Pulse Ox
98.3 F 97 19 103/50 97
03/18/25 11:25 03/18/25 12:00 03/18/25 12:00 03/18/25 12:00 03/18/25 12:00
Physical Exam
Constitutional: No Acute Distress, Comfortable and Non-toxic
Head: Normocephalic
Eyes: Sclera Anicteric
Cardiovascular: Irregular Rate, S1/S2 and Peripheral Edema
Pulmonary: Clear and Non Labored
Gastrointestinal: Soft, Non Tender, Non Distended and Other (Colostomy bag with soft brown stool, [address] 2 on the right 1 on the left, all draining purulent fluid)
Extremities: Edema
Skin: Warm
Neurological: AO x 3
Psychological: Calm
Objective Data
Lab Data
Lab Results
03/17/25 04:45
03/16/25 04:40
PT 19.9 Sec (11.4-14.6) H 02/27/25 16:52
INR 1.67 02/27/25 16:52
APTT 92.6 Sec (23.4-35.0) H 03/16/25 03:52
Estimated Creat Clear 81 ml/min 03/16/25 04:40
Lactic Acid 1.5 mmol/L (0.7-2.0) 03/01/25 03:18
Total Bilirubin 0.4 mg/dl (0.2-1.3) 03/15/25 03:42
AST 30 U/L (17-59) 03/15/25 03:42
ALT 32 U/L (0-50) 03/15/25 03:42
Alkaline Phosphatase 174 U/L (38-126) H 03/15/25 03:42
Most recent labs reviewed.
Micro Results:
03/05/25 17:11 Anaerobic Culture - Final
Abdomen
03/05/25 11:35 Blood Culture - Final
Blood/Venous No Growth - Final Report
03/06/25 10:50 Wound Culture - Final
Abdomen Escherichia coli
Citrobacter youngae
Enterococcus faecalis
Gram Stain - Final
03/05/25 17:11 Wound Culture - Final
Abdomen Escherichia coli
Citrobacter youngae
Enterococcus faecalis
Gram Stain - Final
03/01/25 20:44 Blood Culture - Final
Blood/Venous Bacillus species,not anthracis
Gram Stain - Final
03/01/25 19:46 Blood Culture - Final
Blood/Venous No Growth - Final Report
Wound/abscess/other Cult Final 03/05/2025
Few Escherichia coli
Few Citrobacter youngae
Moderate Enterococcus faecalis
Organism 1 Escherichia coli
Organism 2 Citrobacter youngae
Organism 3 Enterococcus faecalis
E.COLI C. YOUNGAE ENTFCL
M.I.C. RX M.I.C. RX M.I.C. RX
--------- --- --------- --- --------- ---
Amoxicillin/Potas. Clavulanate <=8/4 S >16/8 R
Ampicillin <=8 S >16 R <=2 S
Ampicillin/Sulbactam <=4/2 S >16/8 R
Aztreonam <=4 S >16 R
Cefazolin <=2 S >16 R
Cefepime <=2 S
Ceftazidime >16 R
Ceftriaxone >2 R
Ertapenem <=0.5 S <=0.5 S
Ciprofloxacin <=0.25 S <=0.25 S
Gentamicin <=2 S <=2 S
Gentamicin Synergy Screen >500 R
Meropenem <=1 S <=1 S
Piperacillin/Tazobactam <=8 S <=8 S
Tetracycline <=4 S <=4 S
Tobramycin <=2 S <=2 S
Trimethoprim/Sulfamethoxazole <=2/38 S <=2/38 S
Vancomycin 2 S
Imaging:
03/18/2025 CT abdomen/pelvis: Interval development of predominantly gas containing extraluminal collection within the left lower quadrant which is in close proximity to both a thickened small bowel loop and the Amish pouch suture line. Findings
are nonspecific but worrisome for possible leak or focal small bowel perforation. Somewhat limited evaluation in the absence of oral contrast. Significant interval improvement of fluid collection/abscess within the left upper quadrant, right
perihepatic, and anterior right pelvis. See above. Small bilateral pleural effusions with adjacent atelectasis within both posterior lower lobes. Please see full dictation for additional detail.
03/11/2025 CT abdomen/pelvis: again seen are multiple intra-abdominal fluid collections. There has been interval placement of percutaneous drainage catheters with improvement in size of both collections although significant residual fluid
collections remain, particularly within the left upper quadrant.
03/05/2025: CT Chest/abd/pel W Iv Contrast: Postoperative abdomen with developing intra-abdominal abscesses in the left upper quadrant and right upper quadrant of the abdomen, and smaller probable developing abscesses in the upper abdomen inferior
to the distal stomach and in the anterior pelvis deep to the anterior pelvic wall.
Small bilateral pleural effusions and bilateral lower lobe compressive atelectasis.
02/27/2025: CT Abd/pel W Iv And Oral Contrast: 1. Postoperative leak at the left colonic anastomosis, with extraluminal contrast. Large degree of pneumoperitoneum.2. Trace bilateral pleural effusions with associated probable atelectasis. Cannot rule
out superimposed left lower lobe pneumonia.
[2025-03-18] MEDS: NOVOLOG FLEXPEN-MODERATE RESISTANCE 1 UNITS SC (12:23)
--- NOTE | 2025-03-18 14:00 | WOUNDNOTE ---
MIDLINE ABDOMINAL WOUND
--- NOTE | 2025-03-18 14:21 | WOUNDNOTE ---
[facility] RN NOTE: Followed up with patient today to change pouch. Ostomy is pink and flat, with dehiscence around stoma from 1-6 oclock. Stoma with soft stool. No drainage noted. Pouch changed with barrier # 08017, Eakins seal and pouch #[id number]. Ostomy
supplies at bedside. Patient familiar with ostomy care from past ostomy. Midline dressing changed per order. Midline full thickness surgical wound with scattered yellow tissue and blue sutures intact. Sacrum and heels intact. Will continue to follow
during in-patient stay.
--- NOTE | 2025-03-18 15:20 | PTOTSP ---
Speech Language Pathology
Pt seen for dysphagia tx. Pt stated he is using chin tuck sometimes, but doesn't always need to. Discussed importance of chin tuck with liquids based on FEES results. Pt seen with sips of liquids x3 with use of chin tuck. Brief throat clear
noted in 2/3 trials. Clear vocal quality following. Completed effortful swallow exericses.
Pt continues to be at risk for aspiration based on results/recommendations from FEES completed 03/14 in addition to deconditioning. However, pt appears less fatigued this date with stronger vocal quality. Would recommend repeat FEES 03/21 prior to
considering diet advancement. Asked pt to complete sets of 10 effortful swallowing exercises throughout the day this .
Recommend:
1. Continue Level 4/Puree diet with thin liquids
2. Aspiration precautions: single straw sips of liquid with chin tuck; intermittent throat clear/reswallow
3. Repeat flexible endoscopic evaluation of swallowing (FEES) Wednesday 03/21
4. Meds crushed in applesauce.
5. Can increase meal times as tolerated
6. Monitor lungs closely
7. ST will continue to follow with focus on improving airway protection, cough strength, and pharyngeal strength for improved swallowing safety and efficiency.
--- NOTE | 2025-03-18 16:58 | CM ---
Following up on Patient. Patient not ready and [facility] is following as well as SNF as back ups. PLAN: Acute Rehab when ready.
[2025-03-18] MEDS: NOVOLOG FLEXPEN-MODERATE RESISTANCE 3 UNITS SC (16:59)
[2025-03-18] MEDS: LIPITOR 10 MG PO (17:00)
[2025-03-18 17:05] LABS: Glucose - Point of Care 231 mg/dl (70-99)
--- NOTE | 2025-03-18 18:35 | PTCARENOTE ---
Assumed care of patient at beginning of this shift from previous RN with own cpap in use; cannot verify accuracy of vital signs prior to 0700. Patient maintained O2 sats 95-98% t/o the day. OOB with 2 person assistance; anxiety with ambulation and
needs a lot of encouragement. More talkative today. WOC RN in to change colostomy appliance and did surgical wound care. Patient to CT scan; reviewed results with Dr Sandoval, see his updated note. Accu check this evening was 231; patient stated he
had a milkshake brought in by a visitor. He tolerated his diet, but states he does not like the food consistency. Seen by ST; see note. See worklist for full assessment and vital signs.
[2025-03-18] MEDS: TYLENOL 650 MG PO (20:26)
[2025-03-18] MEDS: MELATONIN 5 MG PO (22:23)
--- NOTE | 2025-03-18 22:30 | RESPNOTE ---
PT was assisted in the placement of his home CPAP machine and is tolerating well on R/A.
[2025-03-18 22:40] LABS: Glucose - Point of Care 212 mg/dl (70-99)
[2025-03-19] VITALS (15 sets, daily range): BP systolic 90–128; BP diastolic 37–81; BMI 37.2
[2025-03-19] MEDS: ROXICODONE 5 MG PO ×3 (04:25→22:58)
[2025-03-19 04:41] LABS: Hematocrit 24.7 % (39.0-52.0); Hemoglobin 8.1 g/dL (13.0-18.0); Mean Corp Hgb Conc. 32.8 g/dL (33.0-37.0); Mean Corpuscular Volume 92.2 fL (80.0-94.0); Platelet Count 427 10^3/uL (130-400); Red Cell Dist. Width 15.0 % (11.5-14.5)
[2025-03-19 05:02] LABS: Blood Urea Nitrogen 25 mg/dl (9-20); Calcium 7.6 mg/dl (8.4-10.2); Carbon Dioxide 35 mmol/L (22-30); Chloride 103 mmol/L (98-107); Estimated Creatinine Clearance 81 ml/min; Glucose 135 mg/dl (70-99); Potassium 3.8 mmol/L (3.5-5.1); Sodium 138 mmol/L (135-145); eGFR > 60.00
--- NOTE | 2025-03-19 05:11 | PTCARENOTE ---
Pt appearing to get some rest over night. Pain controlled with medication, see MAR. Wound care done this morning, Pt appearing to tolerate well. Call velazquez within reach. Assessment care and vitals as charted.
[2025-03-19] MEDS: ZOSYN 50 IV ×4 (05:28→22:59)
[2025-03-19] MEDS: LOPRESSOR 12.5 MG PO (08:57)
[2025-03-19] MEDS: LASIX 40 MG PO ×2 (08:58→16:41)
[2025-03-19] MEDS: NSS (PRESERVATIVE FREE) 10 ML IV (08:58)
[2025-03-19] MEDS: PROTONIX IV 40 MG IV (08:58)
[2025-03-19] MEDS: ELIQUIS 5 MG PO ×2 (08:58→20:04)
[2025-03-19] MEDS: FLUSH (NSS) 2 FLUSH IV (08:59)
[2025-03-19] MEDS: LANTUS 0.08 UNITS SC (09:12)
[2025-03-19] MEDS: DESENEX/MITRAZOL/ZEASORB 1 APPLIC TOPICAL ×2 (09:13→20:03)
[2025-03-19] MEDS: NOVOLOG FLEXPEN-MODERATE RESISTANCE SC (09:13)
[2025-03-19] MEDS: ZESTRIL 2.5 MG PO (09:15)
[2025-03-19 09:23] LABS: Glucose - Point of Care 134 mg/dl (70-99)
--- NOTE | 2025-03-19 09:57 | W.PN.ID1 ---
Date of Service
Date of Service: March 19, 2025
Today's Communication
Continue Zosyn.
Assessment / Plan
74-year-old male with a significant PMHx of A-fib, colostomy (08/2024) for perforated diverticulitis with subsequent elective reversal of colostomy on 02/21/25. On 02/27 he presented to the hospital with nausea and vomiting and was found to have free
air in the abdomen and underwent ex lap, colon resection, end colostomy creation for anastomotic leak.
#Anastomotic leak / perforated viscus
#Abdominal abscesses; s/p drainage
- Cultures with E. coli, Citrobacter, Enterococcus, mixed anaerobes
#Leukocytosis
- resolved
#Bacteremia with bacillus species
- contamination
Recommendations:
- Intra-abdominal cultures with E. coli, Citrobacter, Enterococcus. All isolate susceptible to Zosyn.
- Continue with Zosyn 3.375 gm IV q.6 hours (d#21)
Follow WBC and temp curve.
Follow drain output.
Continue with supportive measures.
����������������������������������������������������������
Chief Complaint
-: Leukocytosis and Other (Intra-abdominal abscesses)
Subjective / Review of Systems
Feels improved.
Vital Signs / Physical Exam
Vital Signs
Vital Signs
Temp Pulse Resp BP Pulse Ox
98.2 F 87 21 110/67 99
03/19/25 08:27 03/19/25 09:15 03/19/25 06:00 03/19/25 09:15 03/19/25 09:50
Physical Exam
Constitutional: No Acute Distress, Comfortable and Non-toxic
Head: Normocephalic
Eyes: Sclera Anicteric
Cardiovascular: Irregular Rate, S1/S2 and Peripheral Edema
Pulmonary: Clear and Non Labored
Gastrointestinal: Soft, Non Tender, Non Distended and Other (Colostomy bag with soft brown stool, [address] 2 on the right 1 on the left, draining turbid , cloudy cream-colored fluid)
Extremities: Edema
Skin: Warm
Neurological: AO x 3
Psychological: Calm
Objective Data
Lab Data
Lab Results
03/19/25 04:19
03/19/25 04:19
PT 19.9 Sec (11.4-14.6) H 02/27/25 16:52
INR 1.67 02/27/25 16:52
APTT 92.6 Sec (23.4-35.0) H 03/16/25 03:52
Estimated Creat Clear 81 ml/min 03/19/25 04:19
Lactic Acid 1.5 mmol/L (0.7-2.0) 03/01/25 03:18
Total Bilirubin 0.4 mg/dl (0.2-1.3) 03/15/25 03:42
AST 30 U/L (17-59) 03/15/25 03:42
ALT 32 U/L (0-50) 03/15/25 03:42
Alkaline Phosphatase 174 U/L (38-126) H 03/15/25 03:42
Most recent labs reviewed.
Micro Results:
03/05/25 17:11 Anaerobic Culture - Final
Abdomen
03/05/25 11:35 Blood Culture - Final
Blood/Venous No Growth - Final Report
03/06/25 10:50 Wound Culture - Final
Abdomen Escherichia coli
Citrobacter youngae
Enterococcus faecalis
Gram Stain - Final
03/05/25 17:11 Wound Culture - Final
Abdomen Escherichia coli
Citrobacter youngae
Enterococcus faecalis
Gram Stain - Final
03/01/25 20:44 Blood Culture - Final
Blood/Venous Bacillus species,not anthracis
Gram Stain - Final
03/01/25 19:46 Blood Culture - Final
Blood/Venous No Growth - Final Report
Wound/abscess/other Cult Final 03/05/2025
Few Escherichia coli
Few Citrobacter youngae
Moderate Enterococcus faecalis
Organism 1 Escherichia coli
Organism 2 Citrobacter youngae
Organism 3 Enterococcus faecalis
E.COLI C. YOUNGAE ENTFCL
M.I.C. RX M.I.C. RX M.I.C. RX
--------- --- --------- --- --------- ---
Amoxicillin/Potas. Clavulanate <=8/4 S >16/8 R
Ampicillin <=8 S >16 R <=2 S
Ampicillin/Sulbactam <=4/2 S >16/8 R
Aztreonam <=4 S >16 R
Cefazolin <=2 S >16 R
Cefepime <=2 S
Ceftazidime >16 R
Ceftriaxone >2 R
Ertapenem <=0.5 S <=0.5 S
Ciprofloxacin <=0.25 S <=0.25 S
Gentamicin <=2 S <=2 S
Gentamicin Synergy Screen >500 R
Meropenem <=1 S <=1 S
Piperacillin/Tazobactam <=8 S <=8 S
Tetracycline <=4 S <=4 S
Tobramycin <=2 S <=2 S
Trimethoprim/Sulfamethoxazole <=2/38 S <=2/38 S
Vancomycin 2 S
Imaging:
03/18/2025 CT abdomen/pelvis: Interval development of predominantly gas containing extraluminal collection within the left lower quadrant which is in close proximity to both a thickened small bowel loop and the Amish pouch suture line. Findings
are nonspecific but worrisome for possible leak or focal small bowel perforation. Somewhat limited evaluation in the absence of oral contrast. Significant interval improvement of fluid collection/abscess within the left upper quadrant, right
perihepatic, and anterior right pelvis. See above. Small bilateral pleural effusions with adjacent atelectasis within both posterior lower lobes. Please see full dictation for additional detail.
03/11/2025 CT abdomen/pelvis: again seen are multiple intra-abdominal fluid collections. There has been interval placement of percutaneous drainage catheters with improvement in size of both collections although significant residual fluid
collections remain, particularly within the left upper quadrant.
03/05/2025: CT Chest/abd/pel W Iv Contrast: Postoperative abdomen with developing intra-abdominal abscesses in the left upper quadrant and right upper quadrant of the abdomen, and smaller probable developing abscesses in the upper abdomen inferior
to the distal stomach and in the anterior pelvis deep to the anterior pelvic wall.
Small bilateral pleural effusions and bilateral lower lobe compressive atelectasis.
02/27/2025: CT Abd/pel W Iv And Oral Contrast: 1. Postoperative leak at the left colonic anastomosis, with extraluminal contrast. Large degree of pneumoperitoneum.2. Trace bilateral pleural effusions with associated probable atelectasis. Cannot rule
out superimposed left lower lobe pneumonia.
--- NOTE | 2025-03-19 11:53 | W.PN.GS2 ---
Today's Communication / Plan
-
OOB increase activity
Assessment / Plan
-
Assessment: 74 yo M POD 27 s/p reversal of end colostomy POD 21 s/p ex lap, colon resection, end colostomy creation for anastomotic leak
AFVSS
WBC normalized
H/H stable
good ostomy function, tolerating diet
CT 03/18/25 with improved collections, nearly resolved. Contained extraluminal air near sigmoid staple line noted
LUQ drain placed on 03/05/25 upsized on 03/11/25 seropurulent fluid, clearing
RUQ drain placed 03/06/25 - seropurulent, clearing
RLQ drain placed 03/11 - serous
polymicrobial on cultures - ID following
Plan:
-- Puree diet with thin liquids, [employer] following with FEES planned Friday
limited PO intake
ensure BID
-- Abx: per ID, recs appreciated
-- continue PT/OT/ST, anticipate SNF on d/c
-- Local wound care with wet to dry dressing, wound care following, eventually would place wound vac, tentatively Friday
-- Medical management as per Hospitalist
Subjective Data
-
Date of Service: March 19, 2025
Pt seen and examined at bedside with Dr. Braxton. Denies n/v. Tolerating diet, not enjoying puree but doing his best to eat. Denies pain. Feels unsteady on his feet but willing to get oob to chair.
Objective Data
-
Intake and Output
03/18/25 03/19/25 03/20/25
06:59 06:59 06:59
Intake Total 30 / 30 1110 / 1110
Output Total 997 / 997 830 / 830
Balance -967 / -967 280 / 280
Intake:
Oral fluids 760 / 760
Amount of oral supplement(s) 120 / 120
consumed
IV piggybacks 200 / 200
Amount instilled into Drain (
Total)
Left Abdomen Celso-Loyd C
Placed in IR
Right Lower Celso-Loyd B
Right Upper Abdomen Celso-
Loyd A
Output:
Liquid stool amount 100 / 100
Colostomy 100 / 100
Drain Output (Total) 105 / 105
Left Abdomen Celso-Loyd C 60 / 60
Placed in IR
Right Lower Celso-Loyd B 40 / 40
Right Upper Abdomen Celso-
Loyd A
Urine, Voided 850 / 850 725 / 725
Vital Signs
Temp Pulse Resp BP Pulse Ox
98.2 F 87 21 110/67 99
03/19/25 08:27 03/19/25 09:15 03/19/25 06:00 03/19/25 09:15 03/19/25 09:50
Lab Results
03/19/25 04:19
03/19/25 04:19
Calcium 7.6 mg/dl (8.4-10.2) L 03/19/25 04:19
Phosphorus 3.7 mg/dl (2.5-4.5) 03/14/25 05:23
Magnesium 1.9 mg/dl (1.6-2.3) 03/16/25 04:40
Magnesium Cancelled 03/16/25 04:40
Total Bilirubin 0.4 mg/dl (0.2-1.3) 03/15/25 03:42
Direct Bilirubin 1.9 mg/dl (0.0-0.4) H 03/02/25 03:45
AST 30 U/L (17-59) 03/15/25 03:42
ALT 32 U/L (0-50) 03/15/25 03:42
Alkaline Phosphatase 174 U/L (38-126) H 03/15/25 03:42
Total Protein 5.7 g/dl (6.3-8.2) L 03/15/25 03:42
Albumin 2.0 g/dl (3.5-5.0) L 03/15/25 03:42
Physical Exam
-
Gen: NAD
Abd: soft, approp ttp, stoma with brown stool, midline wound granulating, drains clearing, upper drains remain seropurulent, lower drain with little to no output,some serous fluid in bulb
Patient has a hoffman catheter: No
Patient has a central line: Yes (right picc)
[2025-03-19] MEDS: NOVOLOG FLEXPEN-MODERATE RESISTANCE 1 UNITS SC ×2 (12:31→17:28)
[2025-03-19 12:35] LABS: Glucose - Point of Care 158 mg/dl (70-99)
[2025-03-19 17:22] LABS: Glucose - Point of Care 161 mg/dl (70-99)
[2025-03-19] MEDS: LIPITOR 10 MG PO (17:29)
--- NOTE | 2025-03-19 18:37 | PTCARENOTE ---
patient OOB for over 2 hours today. patient apprehensive regarding most activities but once he begins to participate he is active in self care. OOB to bedside commode with 2 assist, rolling walker. Patient did well with getting from lying to sitting
to standing. He needs cues to self participate and he then does do well, but does not take the initiative. Family here today for long visit and trying encourage patient to focus on the progress that he has made and continue to improve. Surgical
team plan is to work with WOC RN on Friday to place a wound vac at bedside,
[2025-03-19] MEDS: TYLENOL 650 MG PO (20:04)
[2025-03-19] MEDS: LOPRESSOR PO (20:05)
[2025-03-19] MEDS: ZESTRIL PO ×2 (20:05→20:07)
[2025-03-19 21:34] LABS: Glucose - Point of Care 168 mg/dl (70-99)
[2025-03-19] MEDS: MELATONIN PO (21:37)
--- NOTE | 2025-03-19 23:24 | RESPNOTE ---
PT was assisted in the placement of his home CPAP machine and is tolerating well on R/A.
[2025-03-20] VITALS (16 sets, daily range): BP systolic 97–135; BP diastolic 47–82; PULSE 91; O2SAT 99; BMI 37.2
[2025-03-20] MEDS: ZOSYN 50 IV ×4 (05:16→23:12)
--- NOTE | 2025-03-20 06:42 | PTCARENOTE ---
Pt had no complaints over night. Wound and drain care done this AM, Pt appeared to tolerate well. Pt demeanor appears to be improving in a positive way. Pt more talkative and like telling story of when he is young. Call velazquez within reach.
[2025-03-20 07:24] LABS: Glucose - Point of Care 115 mg/dl (70-99)
[2025-03-20] MEDS: NOVOLOG FLEXPEN-MODERATE RESISTANCE SC ×2 (08:14→16:45)
[2025-03-20] MEDS: LASIX 40 MG PO ×2 (08:41→16:47)
[2025-03-20] MEDS: LOPRESSOR 12.5 MG PO ×2 (08:41→21:05)
[2025-03-20] MEDS: NSS (PRESERVATIVE FREE) 10 ML IV (08:41)
[2025-03-20] MEDS: ELIQUIS 5 MG PO ×2 (08:41→21:04)
[2025-03-20] MEDS: PROTONIX IV 40 MG IV (08:42)
[2025-03-20] MEDS: DESENEX/MITRAZOL/ZEASORB 1 APPLIC TOPICAL ×2 (08:42→21:04)
[2025-03-20] MEDS: LANTUS 0.08 UNITS SC (08:42)
--- NOTE | 2025-03-20 09:33 | W.PN.GS2 ---
Today's Communication / Plan
-
Continue diet and drains
Assessment / Plan
-
Assessment: 74 yo M POD 28 s/p reversal of end colostomy POD 22 s/p ex lap, colon resection, end colostomy creation for anastomotic leak
AFVSS
Labs have been stable, lab holiday today
good ostomy function, tolerating diet
CT 03/18/25 with improved collections, nearly resolved. Contained extraluminal air near sigmoid staple line noted
LUQ drain placed on 03/05/25 upsized on 03/11/25 seropurulent fluid, clearing
RUQ drain placed 03/06/25 - seropurulent, clearing
RLQ drain placed 03/11 - serous
polymicrobial on cultures - ID following
Plan:
-- Puree diet with thin liquids, [employer] following with FEES planned Friday
limited PO intake
ensure BID
-- Abx: per ID, recs appreciated
-- continue PT/OT/ST, anticipate SNF on d/c
-- Local wound care with wet to dry dressing, wound care following, eventually would place wound vac, tentatively Friday
-- Medical management as per Hospitalist
Subjective Data
-
Date of Service: March 20, 2025
Pt seen and examined at bedside with Dr. Braxton. Denies n/v. Tolerating diet but early satiety. Denies pain. Was OOB yesterday to chair.
Objective Data
-
Intake and Output
03/19/25 03/20/25 03/21/25
06:59 06:59 06:59
Intake Total 1110 / 1110 1340 / 1340
Output Total 830 / 830 1380 / 1380
Balance 280 / 280 -40 / -40
Intake:
Oral fluids 760 / 760 960 / 960
Amount of oral supplement(s) 120 / 120
consumed
IV piggybacks 200 / 200 350 / 350
Amount instilled into Drain ( 30 30 30 / 30
Total)
Left Abdomen Celso-Loyd C
Placed in IR
Right Lower Celso-Loyd B
Right Upper Abdomen Celso-
Loyd A
Output:
Drain Output (Total) 105 / 105 75 / 75
Left Abdomen Celso-Loyd C 60 / 60 40 / 40
Placed in IR
Right Lower Celso-Loyd B 40 / 40 20 / 20
Right Upper Abdomen Celso-
Loyd A
Urine, Voided 725 / 725 1305 / 1305
Other:
How many times incontinent 1
SMALL amount urine
Vital Signs
Temp Pulse Resp BP Pulse Ox
97.8 F 108 23 111/61 96
03/20/25 08:46 03/20/25 08:00 03/20/25 08:00 03/20/25 08:00 03/20/25 09:32
Lab Results
03/19/25 04:19
03/19/25 04:19
Calcium 7.6 mg/dl (8.4-10.2) L 03/19/25 04:19
Phosphorus 3.7 mg/dl (2.5-4.5) 03/14/25 05:23
Magnesium 1.9 mg/dl (1.6-2.3) 03/16/25 04:40
Magnesium Cancelled 03/16/25 04:40
Total Bilirubin 0.4 mg/dl (0.2-1.3) 03/15/25 03:42
Direct Bilirubin 1.9 mg/dl (0.0-0.4) H 03/02/25 03:45
AST 30 U/L (17-59) 03/15/25 03:42
ALT 32 U/L (0-50) 03/15/25 03:42
Alkaline Phosphatase 174 U/L (38-126) H 03/15/25 03:42
Total Protein 5.7 g/dl (6.3-8.2) L 03/15/25 03:42
Albumin 2.0 g/dl (3.5-5.0) L 03/15/25 03:42
Physical Exam
-
Gen: NAD
Abd: soft, NT, stoma with brown stool, midline wound granulating, drains clearing, upper drains remain seropurulent, lower drain with little to no output,some serous fluid in bulb
Patient has a hoffman catheter: No
Patient has a central line: Yes (right picc)
--- NOTE | 2025-03-20 10:31 | PTCARENOTE ---
Assumed care of patient at beginning of this shift from previous RN. Patient worked with PT and OOB to chair x2 assist; very anxious with standing/walking. Much encouragement needed. Surgical dressing intact; 3 SUSAN drains with dressings intact.
Colostomy draining brown. Surgery in to see patient this morning. See worklist for full assessment and vital signs.
[2025-03-20] MEDS: ZESTRIL 2.5 MG PO ×2 (10:56→21:04)
[2025-03-20] MEDS: NOVOLOG FLEXPEN-MODERATE RESISTANCE 1 UNITS SC (11:53)
[2025-03-20 12:02] LABS: Glucose - Point of Care 176 mg/dl (70-99)
[2025-03-20 16:56] LABS: Glucose - Point of Care 138 mg/dl (70-99)
[2025-03-20] MEDS: LIPITOR 10 MG PO (17:20)
[2025-03-20] MEDS: MELATONIN 5 MG PO (21:04)
[2025-03-20 21:26] LABS: Glucose - Point of Care 216 mg/dl (70-99)
--- NOTE | 2025-03-20 22:00 | RESPNOTE ---
PT was assisted in the placement of his home CPAP machine and is tolerating well on R/A.
[2025-03-21] VITALS (12 sets, daily range): BP systolic 98–140; BP diastolic 42–86; BMI 37.0
--- NOTE | 2025-03-21 04:31 | PTCARENOTE ---
Pt wounds dressing dry and intact. Dressings not changed in anticipation of wound vac placement today. SUSAN drains output becoming more Serous fluid with less purulent findings. Pt had no complaints over night. Assessment care and vitals as charted.
[2025-03-21] MEDS: ZOSYN 50 IV ×4 (05:02→23:33)
--- NOTE | 2025-03-21 08:11 | PN.DE.MGMTRT ---
Insulin Management
- -
03/21/2025: Diabetes Management Follow up
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
colostomy reversal for repeated perforated diverticulitis in 11/2024, found to have anastomotic leak CT imaging with pneumoperitoneum (02/27) requiring ex lap with bowel resection and end colostomy creation on 02/27. Prior to admission was taking no
diabetes medications. A1C 6.2%, Cr 1.1, eGFR >60.
Pt extubated 03/09. He is awake, alert, oriented, sitting up in bed, doing well with pureed diet, able to discuss diabetes care plan. Dtr at bedside.
POD # 29 s/p reversal of end colostomy POD # 23 s/p ex lap, colon resection, end colostomy creation for anastomotic leak.
Pureed diet was started on 03/10, appetite is improving, completed TPN. Lantus started on 03/17
03/20 premeal Glucose range 138 to 176, fasting 135 today.
Will make no change to current regimen: Lantus 8 units in AM and moderate corrective insulin AC.
Discussed with Nurse. Will cont to follow.
Diabetes History
- -
Pre-Admission Diabetes Regimen
Lab Results
Hemoglobin A1c 6.2 % (4.0-5.6) H 02/28/25 02:57
Insulin Pump Settings
IP Diabetes Regimen
03/20/25 03/20/25 03/20/25
11:51 16:44 21:14
POC Glucose 176 H 138 H 216 H
Meal type: Dinner
Meal type: Breakfast
Amount consumed: 65%
Amount consumed: 50%
Patient Education
[2025-03-21 08:59] LABS: Glucose - Point of Care 118 mg/dl (70-99)
[2025-03-21] MEDS: LANTUS 0.08 UNITS SC (09:27)
[2025-03-21] MEDS: NSS (PRESERVATIVE FREE) 10 ML IV (09:27)
[2025-03-21] MEDS: PROTONIX IV 40 MG IV (09:27)
[2025-03-21] MEDS: LOPRESSOR PO (09:28)
[2025-03-21] MEDS: ELIQUIS 5 MG PO ×2 (09:28→20:07)
[2025-03-21] MEDS: ZESTRIL 2.5 MG PO ×2 (09:28→20:08)
[2025-03-21] MEDS: LASIX 40 MG PO ×2 (09:29→17:30)
[2025-03-21] MEDS: DESENEX/MITRAZOL/ZEASORB 1 APPLIC TOPICAL ×2 (09:29→20:07)
[2025-03-21] MEDS: NOVOLOG FLEXPEN-MODERATE RESISTANCE SC ×2 (09:29→17:51)
[2025-03-21 09:54] LABS: ALT (SGPT) 21 U/L (0-50); AST (SGOT) 22 U/L (17-59); Albumin 2.2 g/dl (3.5-5.0); Alkaline Phosphatase 136 U/L (38-126); Blood Urea Nitrogen 19 mg/dl (9-20); Calcium 7.5 mg/dl (8.4-10.2); Carbon Dioxide 34 mmol/L (22-30); Chloride 102 mmol/L (98-107); Estimated Creatinine Clearance 81 ml/min; Glucose 105 mg/dl (70-99); Magnesium 2.1 mg/dl (1.6-2.3); Potassium 4.0 mmol/L (3.5-5.1); Sodium 136 mmol/L (135-145); Total Protein 5.8 g/dl (6.3-8.2); Triglycerides 76 mg/dl (10-149); eGFR > 60.00
--- NOTE | 2025-03-21 10:09 | W.PN.ID1 ---
Addendum entered and electronically signed by Riley Ingram DO 03/21/25 13:45:
I saw and evaluated the patient. I reviewed the resident�s note and agree with findings and plan as documented in the resident�s note.
Pt overall stable.
Continue abx.
Trend WBC / plts / temps.
Follow drain output.
Original Note:
Date of Service
Date of Service: March 21, 2025
Today's Communication
- Continue antibiotics
- Wound VAC today
Assessment / Plan
74-year-old male with a significant PMHx of A-fib, colostomy (08/2024) for perforated diverticulitis with subsequent elective reversal of colostomy on 02/21/25. On 02/27 he presented to the hospital with nausea and vomiting and was found to have free
air in the abdomen and underwent ex lap, colon resection, end colostomy creation for anastomotic leak.
#Anastomotic leak / perforated viscus
#Abdominal abscesses; s/p drainage
- Cultures with E. coli, Citrobacter, Enterococcus, mixed anaerobes
#Leukocytosis
- resolved
#Bacteremia with bacillus species
- contamination
Recommendations:
- Intra-abdominal cultures with E. coli, Citrobacter, Enterococcus. All isolate susceptible to Zosyn.
- Continue with Zosyn 3.375 gm IV q.6 hours (d#22)
Follow WBC and temp curve.
Follow drain output.
Continue with supportive measures.
Plan for wound VAC today
����������������������������������������������������������
Chief Complaint
-: Leukocytosis and Other (Intra-abdominal abscesses)
Subjective / Review of Systems
Patient is doing well, reports no concerns at this time. No reported chills, fever, nausea or vomiting. Still reports some abdominal tenderness around the site of incisions. Drains still have purulent fluid.
Review of Systems: No Fever, No Chills, Abdominal Pain, No Nausea and No Vomiting
Vital Signs / Physical Exam
Vital Signs
Vital Signs
Temp Pulse Resp BP Pulse Ox
98.5 F 123 23 119/63 97
03/21/25 07:53 03/21/25 10:00 03/21/25 10:00 03/21/25 10:00 03/21/25 10:00
Physical Exam
Constitutional: No Acute Distress, Comfortable and Non-toxic
Head: Normocephalic
Eyes: Sclera Anicteric
Cardiovascular: Irregular Rate, S1/S2 and Peripheral Edema
Pulmonary: Clear; Negative Wheezes
Gastrointestinal: Soft, Non Tender, Non Distended and Other (Colostomy bag with soft brown stool, [address] 2 on the right 1 on the left, all draining purulent fluid)
Extremities: Edema
Skin: Warm
Neurological: Awake, Alert, Oriented and AO x 3
Psychological: Calm
Objective Data
Lab Data
Lab Results
03/21/25 08:53
PT 19.9 Sec (11.4-14.6) H 02/27/25 16:52
INR 1.67 02/27/25 16:52
APTT 92.6 Sec (23.4-35.0) H 03/16/25 03:52
Estimated Creat Clear 81 ml/min 03/21/25 08:53
Lactic Acid 1.5 mmol/L (0.7-2.0) 03/01/25 03:18
Total Bilirubin 0.6 mg/dl (0.2-1.3) 03/21/25 08:53
AST 22 U/L (17-59) 03/21/25 08:53
ALT 21 U/L (0-50) 03/21/25 08:53
Alkaline Phosphatase 136 U/L (38-126) H 03/21/25 08:53
Most recent labs reviewed.
Micro Results:
03/05/25 17:11 Anaerobic Culture - Final
Abdomen
03/05/25 11:35 Blood Culture - Final
Blood/Venous No Growth - Final Report
03/06/25 10:50 Wound Culture - Final
Abdomen Escherichia coli
Citrobacter youngae
Enterococcus faecalis
Gram Stain - Final
03/05/25 17:11 Wound Culture - Final
Abdomen Escherichia coli
Citrobacter youngae
Enterococcus faecalis
Gram Stain - Final
03/01/25 20:44 Blood Culture - Final
Blood/Venous Bacillus species,not anthracis
Gram Stain - Final
03/01/25 19:46 Blood Culture - Final
Blood/Venous No Growth - Final Report
Wound/abscess/other Cult Final 03/05/2025
Few Escherichia coli
Few Citrobacter youngae
Moderate Enterococcus faecalis
Organism 1 Escherichia coli
Organism 2 Citrobacter youngae
Organism 3 Enterococcus faecalis
E.COLI C. YOUNGAE ENTFCL
M.I.C. RX M.I.C. RX M.I.C. RX
--------- --- --------- --- --------- ---
Amoxicillin/Potas. Clavulanate <=8/4 S >16/8 R
Ampicillin <=8 S >16 R <=2 S
Ampicillin/Sulbactam <=4/2 S >16/8 R
Aztreonam <=4 S >16 R
Cefazolin <=2 S >16 R
Cefepime <=2 S
Ceftazidime >16 R
Ceftriaxone >2 R
Ertapenem <=0.5 S <=0.5 S
Ciprofloxacin <=0.25 S <=0.25 S
Gentamicin <=2 S <=2 S
Gentamicin Synergy Screen >500 R
Meropenem <=1 S <=1 S
Piperacillin/Tazobactam <=8 S <=8 S
Tetracycline <=4 S <=4 S
Tobramycin <=2 S <=2 S
Trimethoprim/Sulfamethoxazole <=2/38 S <=2/38 S
Vancomycin 2 S
Imaging:
03/18/2025 CT abdomen/pelvis: Interval development of predominantly gas containing extraluminal collection within the left lower quadrant which is in close proximity to both a thickened small bowel loop and the Amish pouch suture line. Findings
are nonspecific but worrisome for possible leak or focal small bowel perforation. Somewhat limited evaluation in the absence of oral contrast. Significant interval improvement of fluid collection/abscess within the left upper quadrant, right
perihepatic, and anterior right pelvis. See above. Small bilateral pleural effusions with adjacent atelectasis within both posterior lower lobes.
03/11/2025 CT abdomen/pelvis: again seen are multiple intra-abdominal fluid collections. There has been interval placement of percutaneous drainage catheters with improvement in size of both collections although significant residual fluid
collections remain, particularly within the left upper quadrant.
03/05/2025: CT Chest/abd/pel W Iv Contrast: Postoperative abdomen with developing intra-abdominal abscesses in the left upper quadrant and right upper quadrant of the abdomen, and smaller probable developing abscesses in the upper abdomen inferior
to the distal stomach and in the anterior pelvis deep to the anterior pelvic wall.
Small bilateral pleural effusions and bilateral lower lobe compressive atelectasis.
02/27/2025: CT Abd/pel W Iv And Oral Contrast: 1. Postoperative leak at the left colonic anastomosis, with extraluminal contrast. Large degree of pneumoperitoneum.2. Trace bilateral pleural effusions with associated probable atelectasis. Cannot rule
out superimposed left lower lobe pneumonia.
[2025-03-21 10:19] LABS: Hematocrit 25.0 % (39.0-52.0); Hemoglobin 7.9 g/dL (13.0-18.0); Mean Corp Hgb Conc. 31.6 g/dL (33.0-37.0); Mean Corpuscular Volume 91.2 fL (80.0-94.0); Platelet Count 447 10^3/uL (130-400); Red Cell Dist. Width 14.9 % (11.5-14.5)
--- NOTE | 2025-03-21 12:11 | W.PN.GS2 ---
Today's Communication / Plan
-
wound vac
FEES
Assessment / Plan
-
Assessment: 74 yo M POD 29 s/p reversal of end colostomy POD 23 s/p ex lap, colon resection, end colostomy creation for anastomotic leak
AFVSS
Labs have been stable
good ostomy function, tolerating diet
CT 03/18/25 with improved collections, nearly resolved. Contained extraluminal air near sigmoid staple line noted
LUQ drain placed on 03/05/25 upsized on 03/11/25 seropurulent fluid, clearing
RUQ drain placed 03/06/25 - seropurulent, clearing
RLQ drain placed 03/11 - serous
polymicrobial on cultures - ID following
Plan:
-- Puree diet with thin liquids, DESKTOP TECHNICIAN following with FEES planned today
limited PO intake
ensure BID
-- Abx: per ID, recs appreciated
-- continue PT/OT/ST, anticipate SNF on d/c
-- Local wound care with wet to dry dressing, wound care following, will place wound vac later today
-- Medical management as per Hospitalist
Subjective Data
-
Date of Service: March 21, 2025
Pt seen and examined at bedside with Dr. deluca. Denies n/v. Tolerating purees. Denies pain.
Objective Data
-
Intake and Output
03/20/25 03/21/25 03/22/25
06:59 06:59 06:59
Intake Total 1340 / 1340 830 / 830
Output Total 1380 / 1380 1697 / 1697
Balance -40 / -40 -867 / -867
Intake:
Oral fluids 960 / 960 480 / 480
Amount of oral supplement(s) 200 / 200
consumed
IV piggybacks 350 / 350 150 / 150
Amount instilled into Drain ( 30 / 30
Total)
Left Abdomen Celso-Loyd C
Placed in IR
Right Lower Celso-Loyd B
Right Upper Abdomen Celso-
Loyd A
Output:
Drain Output (Total) 75 / 75 47 / 47
Left Abdomen Celso-Loyd C 40 / 40
Placed in IR
Right Lower Celso-Loyd B
Right Upper Abdomen Celso-
Loyd A
Urine, Voided 1305 / 1305 1650 / 1650
Other:
How many times incontinent 1
SMALL amount urine
Number of approximated MODERATE 1
amounts of urine
Vital Signs
Temp Pulse Resp BP Pulse Ox
98.3 F 123 23 119/63 98
03/21/25 11:47 03/21/25 10:00 03/21/25 10:00 03/21/25 10:00 03/21/25 11:39
Lab Results
03/21/25 10:10
03/21/25 08:53
Calcium 7.5 mg/dl (8.4-10.2) L 03/21/25 08:53
Phosphorus 3.0 mg/dl (2.5-4.5) 03/21/25 08:53
Magnesium 2.1 mg/dl (1.6-2.3) 03/21/25 08:53
Total Bilirubin 0.6 mg/dl (0.2-1.3) 03/21/25 08:53
Direct Bilirubin 1.9 mg/dl (0.0-0.4) H 03/02/25 03:45
AST 22 U/L (17-59) 03/21/25 08:53
ALT 21 U/L (0-50) 03/21/25 08:53
Alkaline Phosphatase 136 U/L (38-126) H 03/21/25 08:53
Total Protein 5.8 g/dl (6.3-8.2) L 03/21/25 08:53
Albumin 2.2 g/dl (3.5-5.0) L 03/21/25 08:53
Physical Exam
-
Gen: NAD
Abd: soft, NT, stoma with brown stool, midline wound granulating, drains clearing, upper drains remain seropurulent, lower drain with little to no output,some serous fluid in bulb
Patient has a hoffman catheter: No
Patient has a central line: Yes (right picc)
[2025-03-21] MEDS: NOVOLOG FLEXPEN-MODERATE RESISTANCE 1 UNITS SC (12:30)
[2025-03-21 12:36] LABS: Glucose - Point of Care 167 mg/dl (70-99)
[2025-03-21] MEDS: ROXICODONE 5 MG PO (14:04)
--- NOTE | 2025-03-21 14:45 | WOUNDNOTE ---
L ABDOMEN (LOWER OUTER)
--- NOTE | 2025-03-21 14:52 | WOUNDNOTE ---
WOC RN note: Patient's abdominal wound pink with some yellow tissue. Sales Contract Administrator than last week. Dr. Sandoval requested a wound vac as per surgical PA Eva Corley confirmed can use either weekly peel and place vac dressing (change weekly and prn)
or adaptic and black foam (change q 48-72hours and prn), pack small proximal separate mid abdominal incisional wound with alginate and gauze and change with each vac dressing change and prn drainage. Colostomy appliance changed using Convatec 1
piece pouch with Jones seal. Vac peel and place applied (large dressing) with help from SHEKHAR Velasquez. Vac pump set at 125mmhg continuous (serial #[id number]). Abdominal binder reapplied. Skin on heels intact. Sacral/scrotal skin mild MASD. Small dermal
opening on posterior scrotum suspect r/t friction and moisture. Miconazole powder applied to coccyx/yuliet/scrotal skin. Patient turned to L semi side lying position. Heels off bed with pillow. Patient is on a [facility] air bed. He has a regular
and bariatric air chair cushion. Next ostomy appliance change due either or Friday. Next vac change due Friday. Plan is SNF rehab when discharged.
--- NOTE | 2025-03-21 15:28 | W.PN.UPDATE ---
Update Note
Progress Note Update
Patient seen and examined at bedside with drive away driver
-peel and place wound vac placed at bedside, dressings changed to bilateral prior drain sites and to 3 ir drains as well. next vac change planned for Friday.
-colostomy appliance changed
WORM RAISER recs reviewed, advanced to regular consistency diabetic diet/thins
--- NOTE | 2025-03-21 15:37 | PTCARENOTE ---
Pt's assessment as documented. Aox3. Afib on tele monitor. Wound vac placed by WOC Rn's. Pt's diet upgraded up to regular consistency, pt in good spirits over progress. Daughter at bedside, updated on plan of care. Ringing appropriately, call velazquez
within reach.
[2025-03-21 16:39] LABS: Glucose - Point of Care 109 mg/dl (70-99)
--- NOTE | 2025-03-21 16:39 | CM ---
Family are requesting acute rehab, referral sent to [facility]. Patient will need PM&R evaluation and recommendations to see if [facility] can accept patient.
Plan; Await determination from Acute rehab, PM&R evaluation.
[2025-03-21] MEDS: LIPITOR 10 MG PO (17:30)
[2025-03-21 18:32] LABS: Glucose - Point of Care 157 mg/dl (70-99)
[2025-03-21] MEDS: ATIVAN 1 MG PO (20:06)
[2025-03-21] MEDS: LOPRESSOR 12.5 MG PO (20:07)
[2025-03-21 20:52] LABS: Glucose - Point of Care 135 mg/dl (70-99)
--- NOTE | 2025-03-21 20:58 | PTCARENOTE ---
Assumed care for patient overnight. Pt AAOx3, very anxious. Pt tearful regarding the loss of his a few years ago. Emotional support provided. Dayshift RN reached out to Dr. Sandoval about an order for Ativan. Verbal order for 1mg PO Ativan from
Dr. Sandoval, administered see AUG. A-fib on the monitor. Pt SpO2 96% on room air. Wound care visited pt during dayshift. Wound vac intact. x3 SUSAN drain sites are clean/dry/intact. Colostomy appliance intact. Pt tolerating frequent turning and
repositioning. Pt rings appropriately, call velazquez within reach.
[2025-03-21] MEDS: MELATONIN 5 MG PO (21:17)
--- NOTE | 2025-03-21 22:00 | PTCARENOTE ---
Pt very drowsy after the Ativan. Pt had episode of bradycardia, HR down to 33bpm. Pt HR quickly came back up to baseline 80-100bpm. Pt easily aroused and denies any dizziness or lightheadedness. A-fib rhythm, no change there. Pt BP stable 140/86
immediately after bradycardia. KALEY Torres made aware.
[2025-03-22] VITALS (15 sets, daily range): BP systolic 99–175; BP diastolic 50–72; PULSE 85–97; O2SAT 98–99; BMI 36.5
[2025-03-22] MEDS: ZOSYN 50 IV ×4 (05:33→23:40)
[2025-03-22 08:20] LABS: Glucose - Point of Care 107 mg/dl (70-99)
[2025-03-22] MEDS: NOVOLOG FLEXPEN-MODERATE RESISTANCE SC ×2 (08:46→17:06)
--- NOTE | 2025-03-22 08:58 | W.PN.ID1 ---
Date of Service
Date of Service: March 22, 2025
Today's Communication
Continue antibiotics.
Assessment / Plan
74-year-old male with a significant PMHx of A-fib, colostomy (08/2024) for perforated diverticulitis with subsequent elective reversal of colostomy on 02/21/25. On 02/27 he presented to the hospital with nausea and vomiting and was found to have free
air in the abdomen and underwent ex lap, colon resection, end colostomy creation for anastomotic leak.
#Anastomotic leak / perforated viscus
#Abdominal abscesses; s/p drainage
- Cultures with E. coli, Citrobacter, Enterococcus, mixed anaerobes
#Leukocytosis
- resolved
#Bacteremia with bacillus species
- contamination
Recommendations:
- Intra-abdominal cultures with E. coli, Citrobacter, Enterococcus; all isolate susceptible to Zosyn.
- Continue with Zosyn 3.375 gm IV q.6 hours (d#23)
Follow WBC and temp curve.
Follow drain output.
Continue with supportive measures.
Follow for repeat imaging.
����������������������������������������������������������
Chief Complaint
-: Leukocytosis and Other (Intra-abdominal abscesses)
Subjective / Review of Systems
Review of Systems: No Fever, No Chills and No Abdominal Pain
Vital Signs / Physical Exam
Vital Signs
Vital Signs
Temp Pulse Resp BP Pulse Ox
97.9 F 87 19 108/58 97
03/22/25 03:06 03/22/25 06:00 03/22/25 06:00 03/22/25 06:00 03/22/25 06:00
Physical Exam
Constitutional: No Acute Distress, Comfortable and Non-toxic
Head: Normocephalic
Eyes: Sclera Anicteric
Cardiovascular: Irregular Rate and S1/S2; Negative S3/S4
Pulmonary: Clear; Negative Wheezes
Gastrointestinal: Soft, Non Tender, Non Distended and Other (Colostomy bag with soft brown stool, [address] 2 on the right 1 on the left, all draining purulent fluid)
Extremities: Edema
Skin: Warm
Neurological: Awake, Alert, Oriented and AO x 3
Psychological: Calm
Objective Data
Lab Data
Lab Results
03/21/25 10:10
03/21/25 08:53
PT 19.9 Sec (11.4-14.6) H 02/27/25 16:52
INR 1.67 02/27/25 16:52
APTT 92.6 Sec (23.4-35.0) H 03/16/25 03:52
Estimated Creat Clear 81 ml/min 03/21/25 08:53
Lactic Acid 1.5 mmol/L (0.7-2.0) 03/01/25 03:18
Total Bilirubin 0.6 mg/dl (0.2-1.3) 03/21/25 08:53
AST 22 U/L (17-59) 03/21/25 08:53
ALT 21 U/L (0-50) 03/21/25 08:53
Alkaline Phosphatase 136 U/L (38-126) H 03/21/25 08:53
Most recent labs reviewed.
Micro Results:
03/05/25 17:11 Anaerobic Culture - Final
Abdomen
03/05/25 11:35 Blood Culture - Final
Blood/Venous No Growth - Final Report
03/06/25 10:50 Wound Culture - Final
Abdomen Escherichia coli
Citrobacter youngae
Enterococcus faecalis
Gram Stain - Final
03/05/25 17:11 Wound Culture - Final
Abdomen Escherichia coli
Citrobacter youngae
Enterococcus faecalis
Gram Stain - Final
03/01/25 20:44 Blood Culture - Final
Blood/Venous Bacillus species,not anthracis
Gram Stain - Final
03/01/25 19:46 Blood Culture - Final
Blood/Venous No Growth - Final Report
Wound/abscess/other Cult Final 03/05/2025
Few Escherichia coli
Few Citrobacter youngae
Moderate Enterococcus faecalis
Organism 1 Escherichia coli
Organism 2 Citrobacter youngae
Organism 3 Enterococcus faecalis
E.COLI C. YOUNGAE ENTFCL
M.I.C. RX M.I.C. RX M.I.C. RX
--------- --- --------- --- --------- ---
Amoxicillin/Potas. Clavulanate <=8/4 S >16/8 R
Ampicillin <=8 S >16 R <=2 S
Ampicillin/Sulbactam <=4/2 S >16/8 R
Aztreonam <=4 S >16 R
Cefazolin <=2 S >16 R
Cefepime <=2 S
Ceftazidime >16 R
Ceftriaxone >2 R
Ertapenem <=0.5 S <=0.5 S
Ciprofloxacin <=0.25 S <=0.25 S
Gentamicin <=2 S <=2 S
Gentamicin Synergy Screen >500 R
Meropenem <=1 S <=1 S
Piperacillin/Tazobactam <=8 S <=8 S
Tetracycline <=4 S <=4 S
Tobramycin <=2 S <=2 S
Trimethoprim/Sulfamethoxazole <=2/38 S <=2/38 S
Vancomycin 2 S
Imaging:
03/18/2025 CT abdomen/pelvis: Interval development of predominantly gas containing extraluminal collection within the left lower quadrant which is in close proximity to both a thickened small bowel loop and the Amish pouch suture line. Findings
are nonspecific but worrisome for possible leak or focal small bowel perforation. Somewhat limited evaluation in the absence of oral contrast. Significant interval improvement of fluid collection/abscess within the left upper quadrant, right
perihepatic, and anterior right pelvis. See above. Small bilateral pleural effusions with adjacent atelectasis within both posterior lower lobes.
03/11/2025 CT abdomen/pelvis: again seen are multiple intra-abdominal fluid collections. There has been interval placement of percutaneous drainage catheters with improvement in size of both collections although significant residual fluid
collections remain, particularly within the left upper quadrant.
03/05/2025: CT Chest/abd/pel W Iv Contrast: Postoperative abdomen with developing intra-abdominal abscesses in the left upper quadrant and right upper quadrant of the abdomen, and smaller probable developing abscesses in the upper abdomen inferior
to the distal stomach and in the anterior pelvis deep to the anterior pelvic wall.
Small bilateral pleural effusions and bilateral lower lobe compressive atelectasis.
02/27/2025: CT Abd/pel W Iv And Oral Contrast: 1. Postoperative leak at the left colonic anastomosis, with extraluminal contrast. Large degree of pneumoperitoneum.2. Trace bilateral pleural effusions with associated probable atelectasis. Cannot rule
out superimposed left lower lobe pneumonia.
[2025-03-22] MEDS: ELIQUIS 5 MG PO ×2 (09:05→20:02)
[2025-03-22] MEDS: LASIX 40 MG PO ×2 (09:05→17:00)
[2025-03-22] MEDS: DESENEX/MITRAZOL/ZEASORB 1 APPLIC TOPICAL ×2 (09:05→20:06)
[2025-03-22] MEDS: LANTUS 0.08 UNITS SC (09:05)
[2025-03-22] MEDS: PROTONIX IV 40 MG IV (09:06)
[2025-03-22] MEDS: NSS (PRESERVATIVE FREE) 10 ML IV (09:06)
[2025-03-22] MEDS: LOPRESSOR 12.5 MG PO ×2 (09:06→20:02)
[2025-03-22] MEDS: ZESTRIL 2.5 MG PO ×2 (09:06→20:03)
--- NOTE | 2025-03-22 09:25 | PN.DE.MGMTRT ---
Insulin Management
- -
03/22/2025: Diabetes Management Follow up
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
colostomy reversal for repeated perforated diverticulitis in 11/2024, found to have anastomotic leak CT imaging with pneumoperitoneum (02/27) requiring ex lap with bowel resection and end colostomy creation on 02/27. Prior to admission was taking no
diabetes medications. A1C 6.2%, Cr 1.1, eGFR >60.
Pt extubated 03/09. He is awake, alert, oriented, sitting up in bed, doing well with pureed diet, able to discuss diabetes care plan. Dtr at bedside.
POD # 30 s/p reversal of end colostomy POD # 24 s/p ex lap, colon resection, end colostomy creation for anastomotic leak.
Diet was advanced to 2200 ernie yesterday, appetite continues to improve. Completed TPN. Lantus started on 03/17
03/21 premeal Glucose range 109 to 167, fasting 107 today.
Will make no change to current regimen: Lantus 8 units in AM and moderate corrective insulin AC.
Discussed with Nurse. Will cont to follow.
Diabetes History
- -
Type of Diabetes: 2 requiring insulin
Pre-Admission Diabetes Regimen
03/21/25
08:53
Creatinine 0.9
Lab Results
Hemoglobin A1c 6.2 % (4.0-5.6) H 02/28/25 02:57
Insulin Pump Settings
IP Diabetes Regimen
03/21/25 03/21/25 03/21/25
08:53 12:22 16:28
Glucose 105 H
POC Glucose 167 H 109 H
03/21/25 03/21/25 03/22/25
18:20 20:49 08:09
Glucose
POC Glucose 157 H 135 H 107 H
Patient Education
[2025-03-22 12:04] LABS: Glucose - Point of Care 176 mg/dl (70-99)
--- NOTE | 2025-03-22 12:26 | W.PN.GS2 ---
Today's Communication / Plan
-
IV abx
Diabetic diet
PT/OT
Dispo planning
Assessment / Plan
-
Assessment: 74 yo M POD 30 s/p reversal of end colostomy POD 24 s/p ex lap, colon resection, end colostomy creation for anastomotic leak
AFVSS
Labs have been stable
good ostomy function, tolerating diet
CT 03/18/25 with improved collections, nearly resolved. Contained extraluminal air near sigmoid staple line noted
LUQ drain placed on 03/05/25 upsized on 03/11/25 now clear serous
RUQ drain placed 03/06/25 - now clear serous
RLQ drain placed 03/11 - serous
polymicrobial on cultures - ID following
Plan:
-- Reg diet (carb control)
limited PO intake - improving
ensure BID
-- Abx: per ID, recs appreciated
-- continue PT/OT/ST, anticipate SNF on d/c
-- midline wound vac in place
-- Medical management as per Hospitalist
Subjective Data
-
Date of Service: March 22, 2025
AFVSS, working with PT, ayesha diabetic diet, pain controlled
Objective Data
-
Intake and Output
03/21/25 03/22/25 03/23/25
06:59 06:59 06:59
Intake Total 830 / 830 50 / 50
Output Total 1697 / 1697 2145 / 2145
Balance -7 / -867 -2094 /
Intake:
Oral fluids 480 / 480
Amount of oral supplement(s) 200 / 200
consumed
IV piggybacks 150 / 150 50 / 50
Output:
Drain Output (Total) 47 / 47 45 / 45
Left Abdomen Celso-Loyd C
Placed in IR
Right Lower Celso-Loyd B 15
Right Upper Abdomen Celso-
Loyd A
Urine, Voided 1650 / 1650 2099 / 2099
Other:
How many times incontinent 1
SATURATED amount urine
Number of approximated MODERATE 1
amounts of urine
Vital Signs
Temp Pulse Resp BP Pulse Ox
97.8 F 87 19 108/58 97
03/22/25 11:45 03/22/25 06:00 03/22/25 06:00 03/22/25 06:00 03/22/25 06:00
Lab Results
03/21/25 10:10
03/21/25 08:53
Calcium 7.5 mg/dl (8.4-10.2) L 03/21/25 08:53
Phosphorus 3.0 mg/dl (2.5-4.5) 03/21/25 08:53
Magnesium 2.1 mg/dl (1.6-2.3) 03/21/25 08:53
Total Bilirubin 0.6 mg/dl (0.2-1.3) 03/21/25 08:53
Direct Bilirubin 1.9 mg/dl (0.0-0.4) H 03/02/25 03:45
AST 22 U/L (17-59) 03/21/25 08:53
ALT 21 U/L (0-50) 03/21/25 08:53
Alkaline Phosphatase 136 U/L (38-126) H 03/21/25 08:53
Total Protein 5.8 g/dl (6.3-8.2) L 03/21/25 08:53
Albumin 2.2 g/dl (3.5-5.0) L 03/21/25 08:53
Physical Exam
-
Gen: NAD
Abd: soft, no ttp, stoma bag with brown stool, all drains with scant serous fluid
Patient has a hoffman catheter: No
Patient has a central line: Yes
[2025-03-22] MEDS: NOVOLOG FLEXPEN-MODERATE RESISTANCE 1 UNITS SC (12:42)
--- NOTE | 2025-03-22 14:34 | CM ---
3 abdominal drains remain, midline wound vac, IV/Zosyn, Regular diet. Therapy recommendation is Acute Rehab vs SNF. TT attending to place PM&R consult. Discharge POC: TBD. Acute vs SNF. v
[2025-03-22] MEDS: LIPITOR 10 MG PO (17:00)
--- NOTE | 2025-03-22 17:15 | PTCARENOTE ---
see nursing worklist. pt in afib on monitor rate controlled at rest. heart rate briefly increased to 150s when working with PT but once at rest rate returned to baseline. tolerating diet with noc/o nausea. appetiete 50%. currently oob in chair
eating dinner. abdominal binder in place with wound vac dressing beneath intact. colostomy with softly formed brown stool in bag. jps flushed per order with 10 mls each of sterile saline.
[2025-03-22 17:16] LABS: Glucose - Point of Care 121 mg/dl (70-99)
[2025-03-22 22:30] LABS: Glucose - Point of Care 225 mg/dl (70-99)
[2025-03-22] MEDS: MELATONIN 5 MG PO (22:31)
--- NOTE | 2025-03-22 23:15 | PTCARENOTE ---
Assumed care for patient overnight. Pt AAOx3, flat affect. Daughter at the bedside at change of shift. A-fib on the monitor. Pt remains on room air, SpO2 96%. Wound vac intact. x3 SUSAN drains irrigated and assessed. Pt wearing abdominal binder. When
asked if patient wanted to go on CPAP pt refused. Full CHG bath done, assisted with oral hygiene. Pt utilizing urinal with assistance. Desenex powder applied to groin. Pt tolerating frequent turning and repositioning, call velazquez within reach.
[2025-03-23] VITALS (12 sets, daily range): BP systolic 113–141; BP diastolic 56–104; PULSE 85–141; O2SAT 96; BMI 36.2
--- NOTE | 2025-03-23 04:26 | PTCARENOTE ---
Pt had 2 episodes of bradycardia, HR down to 32bpm. Pt had an episode of bradycardia the night prior as noted before. Pt HR quickly came back up to baseline 80-100bpm. Pt easily aroused and denies any dizziness or lightheadedness. Pt describes
feeling 'hot sensation in forehead'. Pt was also incontinent of urine at this time. EKG obtained. A-fib on the monitor. Pt BP stable 141/63 immediately after bradycardia. KALEY Shankar made aware.
[2025-03-23] MEDS: ZOSYN 50 IV ×3 (05:30→17:12)
[2025-03-23 05:51] LABS: Hematocrit 27.1 % (39.0-52.0); Hemoglobin 8.4 g/dL (13.0-18.0); Mean Corp Hgb Conc. 31.0 g/dL (33.0-37.0); Mean Corpuscular Volume 93.8 fL (80.0-94.0); Platelet Count 447 10^3/uL (130-400); Red Cell Dist. Width 14.7 % (11.5-14.5)
[2025-03-23 05:54] LABS: Blood Urea Nitrogen 17 mg/dl (9-20); Calcium 7.6 mg/dl (8.4-10.2); Carbon Dioxide 32 mmol/L (22-30); Chloride 101 mmol/L (98-107); Estimated Creatinine Clearance 81 ml/min; Glucose 144 mg/dl (70-99); Potassium 3.7 mmol/L (3.5-5.1); Sodium 136 mmol/L (135-145); eGFR > 60.00
[2025-03-23] MEDS: NOVOLOG FLEXPEN-MODERATE RESISTANCE 1 UNITS SC ×3 (08:22→17:15)
[2025-03-23] MEDS: PROTONIX IV 40 MG IV (08:23)
[2025-03-23] MEDS: ELIQUIS 5 MG PO ×2 (08:23→21:00)
[2025-03-23] MEDS: NSS (PRESERVATIVE FREE) 10 ML IV (08:23)
[2025-03-23] MEDS: LOPRESSOR 12.5 MG PO ×2 (08:24→21:00)
[2025-03-23] MEDS: DESENEX/MITRAZOL/ZEASORB 1 APPLIC TOPICAL ×2 (08:24→22:08)
[2025-03-23] MEDS: ZESTRIL 2.5 MG PO ×2 (08:24→21:00)
[2025-03-23] MEDS: LASIX 40 MG PO ×2 (08:24→17:12)
[2025-03-23 08:32] LABS: Glucose - Point of Care 165 mg/dl (70-99)
--- NOTE | 2025-03-23 08:48 | PN.DE.MGMTRT ---
Insulin Management
- -
03/23/2025: Diabetes Management Follow up
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
colostomy reversal for repeated perforated diverticulitis in 11/2024, found to have anastomotic leak CT imaging with pneumoperitoneum (02/27) requiring ex lap with bowel resection and end colostomy creation on 02/27. Prior to admission was taking no
diabetes medications. On admission A1C 6.2%, Cr 1.1, eGFR >60. today .9, > 60.
Pt extubated 03/09. He is awake, alert, oriented, sitting up in bed, doing well with pureed diet, able to discuss diabetes care plan.
POD # 31 s/p reversal of end colostomy POD # 25 s/p ex lap, colon resection, end colostomy creation for anastomotic leak.
Diet was advanced to 2200 ernie yesterday, appetite continues to improve. Completed TPN. Lantus started on 03/17
03/22 premeal Glucose range 107 to 176, HS glucose 225.
03/23 Fasting 144 today.
Will make no change to current regimen: Lantus 8 units in AM and moderate corrective insulin AC.
Discussed with Nurse. Will cont to follow.
Diabetes History
- -
Pre-Admission Diabetes Regimen
03/23/25
05:29
Creatinine 0.9
Lab Results
Hemoglobin A1c 6.2 % (4.0-5.6) H 02/28/25 02:57
Insulin Pump Settings
IP Diabetes Regimen
03/22/25 03/22/25 03/22/25
11:53 17:05 22:18
Glucose
POC Glucose 176 H 121 H 225 H
03/23/25 03/23/25
05:29 08:20
Glucose 144 H
POC Glucose 165 H
Meal type: Dinner
Meal type: Lunch
Meal type: Breakfast
Amount consumed: 25%
Amount consumed: Patient refused
Amount consumed: 100%
Patient Education
--- NOTE | 2025-03-23 09:49 | W.PN.ID1 ---
Date of Service
Date of Service: March 23, 2025
Today's Communication
Continue current antibiotics.
Assessment / Plan
74-year-old male with a significant PMHx of A-fib, colostomy (08/2024) for perforated diverticulitis with subsequent elective reversal of colostomy on 02/21/25. On 02/27 he presented to the hospital with nausea and vomiting and was found to have free
air in the abdomen and underwent ex lap, colon resection, end colostomy creation for anastomotic leak.
#Anastomotic leak / perforated viscus
#Abdominal abscesses; s/p drainage
- Cultures with E. coli, Citrobacter, Enterococcus, mixed anaerobes
#Leukocytosis
- resolved
#Bacteremia with bacillus species
- contamination
Recommendations:
- Intra-abdominal cultures with E. coli, Citrobacter, Enterococcus; all isolate susceptible to Zosyn.
- Continue with Zosyn 3.375 gm IV q.6 hours (d#24)
Follow WBC and temp curve. Slight rise in white count noted today, of unclear significance.
Follow drain output.
Continue with supportive measures.
����������������������������������������������������������
Chief Complaint
-: Leukocytosis and Other (Intra-abdominal abscesses)
Subjective / Review of Systems
Patient seen and examined. Reports overall feeling well. Denies specific complaints at present.
Vital Signs / Physical Exam
Vital Signs
Vital Signs
Temp Pulse Resp BP Pulse Ox
97.4 F 91 25 135/104 96
03/23/25 03:11 03/23/25 06:00 03/23/25 06:00 03/23/25 06:00 03/23/25 06:00
Physical Exam
Constitutional: No Acute Distress, Comfortable and Non-toxic
Head: Normocephalic
Eyes: Sclera Anicteric
Cardiovascular: Irregular Rate and S1/S2; Negative S3/S4
Pulmonary: Clear; Negative Wheezes
Gastrointestinal: Soft, Non Tender, Non Distended and Other (Colostomy bag with soft brown stool. SUSAN drains remain in place with scant purulent fluid.)
Extremities: Edema
Skin: Warm
Neurological: Awake, Alert, Oriented and AO x 3
Psychological: Calm
Objective Data
Lab Data
Lab Results
03/23/25 05:29
03/23/25 05:29
PT 19.9 Sec (11.4-14.6) H 02/27/25 16:52
INR 1.67 02/27/25 16:52
APTT 92.6 Sec (23.4-35.0) H 03/16/25 03:52
Estimated Creat Clear 81 ml/min 03/23/25 05:29
Lactic Acid 1.5 mmol/L (0.7-2.0) 03/01/25 03:18
Total Bilirubin 0.6 mg/dl (0.2-1.3) 03/21/25 08:53
AST 22 U/L (17-59) 03/21/25 08:53
ALT 21 U/L (0-50) 03/21/25 08:53
Alkaline Phosphatase 136 U/L (38-126) H 03/21/25 08:53
Most recent labs reviewed.
Micro Results:
03/05/25 17:11 Anaerobic Culture - Final
Abdomen
03/05/25 11:35 Blood Culture - Final
Blood/Venous No Growth - Final Report
03/06/25 10:50 Wound Culture - Final
Abdomen Escherichia coli
Citrobacter youngae
Enterococcus faecalis
Gram Stain - Final
03/05/25 17:11 Wound Culture - Final
Abdomen Escherichia coli
Citrobacter youngae
Enterococcus faecalis
Gram Stain - Final
03/01/25 20:44 Blood Culture - Final
Blood/Venous Bacillus species,not anthracis
Gram Stain - Final
03/01/25 19:46 Blood Culture - Final
Blood/Venous No Growth - Final Report
Wound/abscess/other Cult Final 03/05/2025
Few Escherichia coli
Few Citrobacter youngae
Moderate Enterococcus faecalis
Organism 1 Escherichia coli
Organism 2 Citrobacter youngae
Organism 3 Enterococcus faecalis
E.COLI C. YOUNGAE ENTFCL
M.I.C. RX M.I.C. RX M.I.C. RX
--------- --- --------- --- --------- ---
Amoxicillin/Potas. Clavulanate <=8/4 S >16/8 R
Ampicillin <=8 S >16 R <=2 S
Ampicillin/Sulbactam <=4/2 S >16/8 R
Aztreonam <=4 S >16 R
Cefazolin <=2 S >16 R
Cefepime <=2 S
Ceftazidime >16 R
Ceftriaxone >2 R
Ertapenem <=0.5 S <=0.5 S
Ciprofloxacin <=0.25 S <=0.25 S
Gentamicin <=2 S <=2 S
Gentamicin Synergy Screen >500 R
Meropenem <=1 S <=1 S
Piperacillin/Tazobactam <=8 S <=8 S
Tetracycline <=4 S <=4 S
Tobramycin <=2 S <=2 S
Trimethoprim/Sulfamethoxazole <=2/38 S <=2/38 S
Vancomycin 2 S
Imaging:
03/18/2025 CT abdomen/pelvis: Interval development of predominantly gas containing extraluminal collection within the left lower quadrant which is in close proximity to both a thickened small bowel loop and the Amish pouch suture line. Findings
are nonspecific but worrisome for possible leak or focal small bowel perforation. Somewhat limited evaluation in the absence of oral contrast. Significant interval improvement of fluid collection/abscess within the left upper quadrant, right
perihepatic, and anterior right pelvis. See above. Small bilateral pleural effusions with adjacent atelectasis within both posterior lower lobes.
03/11/2025 CT abdomen/pelvis: again seen are multiple intra-abdominal fluid collections. There has been interval placement of percutaneous drainage catheters with improvement in size of both collections although significant residual fluid
collections remain, particularly within the left upper quadrant.
03/05/2025: CT Chest/abd/pel W Iv Contrast: Postoperative abdomen with developing intra-abdominal abscesses in the left upper quadrant and right upper quadrant of the abdomen, and smaller probable developing abscesses in the upper abdomen inferior
to the distal stomach and in the anterior pelvis deep to the anterior pelvic wall.
Small bilateral pleural effusions and bilateral lower lobe compressive atelectasis.
02/27/2025: CT Abd/pel W Iv And Oral Contrast: 1. Postoperative leak at the left colonic anastomosis, with extraluminal contrast. Large degree of pneumoperitoneum.2. Trace bilateral pleural effusions with associated probable atelectasis. Cannot rule
out superimposed left lower lobe pneumonia.
[2025-03-23] MEDS: LANTUS 0.08 UNITS SC (11:31)
[2025-03-23 12:41] LABS: Glucose - Point of Care 186 mg/dl (70-99)
--- NOTE | 2025-03-23 13:15 | W.PN.UPDATE ---
Update Note
Progress Note Update
- Called to reassess patient's situation, given bradycardia noted on telemetry.
- Telemetry reviewed: Patient has atrial fibrillation with heart rate down to 30s, but this is occurring while the patient is sleeping and is asymptomatic; additionally, there were no pauses greater than 3 seconds.
- The patient does have some evidence of tachycardia-bradycardia syndrome, but conservative management is recommended at this time as he is not having any significant pauses/symptoms.
- Recommend no change in management at this time--continue current medications; can follow-up with Cardiology as an outpatient.
--- NOTE | 2025-03-23 14:54 | W.PN.GS2 ---
Today's Communication / Plan
-
IV abx
Dispo planning
Assessment / Plan
-
Assessment: 74 yo M POD 31 s/p reversal of end colostomy POD 25 s/p ex lap, colon resection, end colostomy creation for anastomotic leak
AFVSS
Labs have been stable, slight increase in WBC today noted
good ostomy function, tolerating diet though appetite limited
CT 03/18/25 with improved collections, nearly resolved. Contained extraluminal air near sigmoid staple line noted
Wound vac to midline placed 03/21, next change 03/28
Drains clearing, total output combined net 20cc past 24 hr
polymicrobial on cultures - ID following
Plan:
-- Reg diet (carb control)
limited PO intake - improving
ensure BID
-- Abx: per ID, recs appreciated
-- continue PT/OT/ST, anticipate SNF on d/c
-- Physiatry consult
-- midline wound vac in place
-- Medical management as per Hospitalist
-- Rpt CT tomorrow am to assess collections
Subjective Data
-
Date of Service: March 23, 2025
AFVSS, working with PT, no complaints, appetite limited 'I have no taste buds'
Objective Data
-
Intake and Output
03/22/25 03/23/25 03/24/25
06:59 06:59 06:59
Intake Total 50 / 50 500 / 500
Output Total 2145 / 2145 1255 / 1255
Balance -2094 / -2094 -5 / -755
Intake:
Oral fluids 240 / 240
IV piggybacks 50 / 50 200 / 200
Amount instilled into Drain ( 60 / 60
Total)
Left Abdomen Celso-Loyd C
Placed in IR
Right Lower Celso-Loyd B
Right Upper Abdomen Celso-
Loyd A
Output:
Drain Output (Total) 45 80 / 80
Left Abdomen Celso-Loyd C
Placed in IR
Right Lower Celso-Loyd B
Right Upper Abdomen Celso-
Loyd A
Urine, Voided 2099 / 2099 1175 / 1175
Other:
How many times incontinent 1
SATURATED amount urine
Vital Signs
Temp Pulse Resp BP Pulse Ox
98 F 91 25 135/104 96
03/23/25 11:00 03/23/25 06:00 03/23/25 06:00 03/23/25 06:00 03/23/25 06:00
Lab Results
03/23/25 05:29
03/23/25 05:29
Calcium 7.6 mg/dl (8.4-10.2) L 03/23/25 05:29
Phosphorus 3.0 mg/dl (2.5-4.5) 03/21/25 08:53
Magnesium 2.1 mg/dl (1.6-2.3) 03/21/25 08:53
Total Bilirubin 0.6 mg/dl (0.2-1.3) 03/21/25 08:53
Direct Bilirubin 1.9 mg/dl (0.0-0.4) H 03/02/25 03:45
AST 22 U/L (17-59) 03/21/25 08:53
ALT 21 U/L (0-50) 03/21/25 08:53
Alkaline Phosphatase 136 U/L (38-126) H 03/21/25 08:53
Total Protein 5.8 g/dl (6.3-8.2) L 03/21/25 08:53
Albumin 2.2 g/dl (3.5-5.0) L 03/21/25 08:53
Physical Exam
-
Gen: NAD
Abd: soft, approp ttp, stoma PPV with brown stool, drains serous
Patient has a hoffman catheter: No
Patient has a central line: Yes
--- NOTE | 2025-03-23 16:27 | VATNOTE ---
Per other VAT RN, no blood return in purple lumen, after flushing and with pt's arm raised, (+) blood return noted from BL lumens. No further intervention needed at this time.
[2025-03-23 17:01] LABS: Glucose - Point of Care 158 mg/dl (70-99)
[2025-03-23] MEDS: LIPITOR 10 MG PO (17:11)
--- NOTE | 2025-03-23 18:43 | PTCARENOTE ---
see nursing flowsheet. pt on room air. controlled afib on monitor. tolerating diet. was ob in chair for several hours. wound vac maintained
[2025-03-23] MEDS: MELATONIN 5 MG PO (21:00)
[2025-03-23 22:02] LABS: Glucose - Point of Care 176 mg/dl (70-99)
--- NOTE | 2025-03-23 23:00 | RESPNOTE ---
PT was assisted in the placement of his home CPAP machine and is tolerating well on R/A.
[2025-03-24] VITALS (15 sets, daily range): BP systolic 92–145; BP diastolic 51–82; BMI 35.9
[2025-03-24] MEDS: ZOSYN 50 IV ×5 (00:29→23:53)
--- NOTE | 2025-03-24 05:48 | PTCARENOTE ---
Caring for pt overnight. aaox3, pleasant, flat. Denies any pain. Wound vac remains in place. 3X SUSAN driains, all drained 10cc and all flushed. Q2T. VSS. Remains RA & afib. No other changes, will monitor.
Around 0530 pt HR dropped to the 30's for about 20-30 seconds and pt was symptomatic and had incontinence.
[2025-03-24] MEDS: ZESTRIL 2.5 MG PO ×2 (07:38→19:14)
[2025-03-24] MEDS: ELIQUIS 5 MG PO ×2 (07:38→19:14)
[2025-03-24] MEDS: PROTONIX IV 40 MG IV (07:38)
[2025-03-24] MEDS: NSS (PRESERVATIVE FREE) 10 ML IV (07:38)
[2025-03-24] MEDS: LASIX 40 MG PO ×2 (07:39→18:00)
[2025-03-24] MEDS: LANTUS 0.08 UNITS SC (07:40)
[2025-03-24] MEDS: DESENEX/MITRAZOL/ZEASORB 1 APPLIC TOPICAL ×2 (07:42→19:14)
[2025-03-24 07:51] LABS: Glucose - Point of Care 121 mg/dl (70-99)
[2025-03-24] MEDS: NOVOLOG FLEXPEN-MODERATE RESISTANCE SC ×2 (08:35→18:35)
--- NOTE | 2025-03-24 08:53 | W.PN.UPDATE ---
Update Note
Progress Note Update
Attempted to see pt, off floor for imaging
--- NOTE | 2025-03-24 09:19 | PN.DE.MGMTRT ---
Insulin Management
- -
03/24/2025: Diabetes Management Follow up
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
colostomy reversal for repeated perforated diverticulitis in 11/2024, found to have anastomotic leak CT imaging with pneumoperitoneum (02/27) requiring ex lap with bowel resection and end colostomy creation on 02/27. Prior to admission was taking no
diabetes medications. On admission A1C 6.2%, Cr 1.1, eGFR >60. today .9, > 60.
Pt extubated 03/09. He is awake, alert, oriented, sitting up in bed, doing well with pureed diet, able to discuss diabetes care plan. Daughter at bedside.
POD # 32 s/p reversal of end colostomy POD # 26 s/p ex lap, colon resection, end colostomy creation for anastomotic leak.
Diet was advanced to 2200 ernie yesterday, appetite continues to improve. Completed TPN. Lantus started on 03/17
03/23 premeal Glucose range 144 to 186, HS glucose 176.
03/23 Fasting 121 today.
Will make no change to current regimen: Lantus 8 units in AM and moderate corrective insulin AC.
Discussed with Nurse. Will cont to follow.
Diabetes History
- -
Pre-Admission Diabetes Regimen
Lab Results
Hemoglobin A1c 6.2 % (4.0-5.6) H 02/28/25 02:57
Insulin Pump Settings
IP Diabetes Regimen
03/23/25 03/23/25 03/23/25
12:29 16:49 21:50
POC Glucose 186 H 158 H 176 H
03/24/25
07:40
POC Glucose 121 H
Meal type: Breakfast
Amount consumed: 75%
Patient Education
--- NOTE | 2025-03-24 09:40 | W.PN.ID1 ---
Addendum entered and electronically signed by Riley Ingram DO 03/24/25 11:02:
I saw and evaluated the patient. I reviewed the resident�s note and agree with findings and plan as documented in the resident�s note.
Original Note:
Date of Service
Date of Service: March 24, 2025
Today's Communication
Continue Antibiotics
Assessment / Plan
74-year-old male with a significant PMHx of A-fib, colostomy (08/2024) for perforated diverticulitis with subsequent elective reversal of colostomy on 02/21/25. On 02/27 he presented to the hospital with nausea and vomiting and was found to have free
air in the abdomen and underwent ex lap, colon resection, end colostomy creation for anastomotic leak.
#Anastomotic leak / perforated viscus
#Abdominal abscesses; s/p drainage
- Cultures with E. coli, Citrobacter, Enterococcus, mixed anaerobes
#Leukocytosis
#Bacteremia with bacillus species
- contamination
Recommendations:
- Intra-abdominal cultures with E. coli, Citrobacter, Enterococcus; all isolate susceptible to Zosyn.
- Continue with Zosyn 3.375 gm IV q.6 hours (d#25)
Follow WBC and temp curve. Slight rise in white count noted yesterday
Follow drain output.
CT Abd/Pelv today shows continued presence of fluid collections
Continue with supportive measures.
����������������������������������������������������������
Chief Complaint
-: Leukocytosis and Other (Intra-abdominal abscesses)
Subjective / Review of Systems
Patient seen following his CT scan, was resting comfortably in his bed. He reports no acute distress at this time. Reports some abdominal discomfort however overall feeling well. No fevers or chills reported.
Review of Systems: No Fever, No Chills, Abdominal Pain, No Nausea, No Vomiting and No Diarrhea
Vital Signs / Physical Exam
Vital Signs
Vital Signs
Temp Pulse Resp BP Pulse Ox
98.3 F 82 29 129/71 97
03/24/25 07:26 03/24/25 04:00 03/24/25 04:00 03/24/25 04:00 03/24/25 07:56
Physical Exam
Constitutional: No Acute Distress, Comfortable and Non-toxic
Head: Normocephalic
Eyes: Sclera Anicteric
Cardiovascular: Irregular Rate, S1/S2 and Peripheral Edema
Pulmonary: Clear; Negative Wheezes
Gastrointestinal: Soft, Non Tender, Non Distended and Other (Colostomy bag with soft brown stool, [address] 2 on the right 1 on the left, all draining purulent fluid. Wound VAC in place)
Extremities: Edema
Skin: Warm
Neurological: Awake, Alert, Oriented and AO x 3
Psychological: Calm
Objective Data
Lab Data
Lab Results
03/23/25 05:29
03/23/25 05:29
PT 19.9 Sec (11.4-14.6) H 02/27/25 16:52
INR 1.67 02/27/25 16:52
APTT 92.6 Sec (23.4-35.0) H 03/16/25 03:52
Estimated Creat Clear 81 ml/min 03/23/25 05:29
Lactic Acid 1.5 mmol/L (0.7-2.0) 03/01/25 03:18
Total Bilirubin 0.6 mg/dl (0.2-1.3) 03/21/25 08:53
AST 22 U/L (17-59) 03/21/25 08:53
ALT 21 U/L (0-50) 03/21/25 08:53
Alkaline Phosphatase 136 U/L (38-126) H 03/21/25 08:53
Most recent labs reviewed.
Micro Results:
03/05/25 17:11 Anaerobic Culture - Final
Abdomen
03/05/25 11:35 Blood Culture - Final
Blood/Venous No Growth - Final Report
03/06/25 10:50 Wound Culture - Final
Abdomen Escherichia coli
Citrobacter youngae
Enterococcus faecalis
Gram Stain - Final
03/05/25 17:11 Wound Culture - Final
Abdomen Escherichia coli
Citrobacter youngae
Enterococcus faecalis
Gram Stain - Final
03/01/25 20:44 Blood Culture - Final
Blood/Venous Bacillus species,not anthracis
Gram Stain - Final
03/01/25 19:46 Blood Culture - Final
Blood/Venous No Growth - Final Report
Wound/abscess/other Cult Final 03/05/2025
Few Escherichia coli
Few Citrobacter youngae
Moderate Enterococcus faecalis
Organism 1 Escherichia coli
Organism 2 Citrobacter youngae
Organism 3 Enterococcus faecalis
E.COLI C. YOUNGAE ENTFCL
M.I.C. RX M.I.C. RX M.I.C. RX
--------- --- --------- --- --------- ---
Amoxicillin/Potas. Clavulanate <=8/4 S >16/8 R
Ampicillin <=8 S >16 R <=2 S
Ampicillin/Sulbactam <=4/2 S >16/8 R
Aztreonam <=4 S >16 R
Cefazolin <=2 S >16 R
Cefepime <=2 S
Ceftazidime >16 R
Ceftriaxone >2 R
Ertapenem <=0.5 S <=0.5 S
Ciprofloxacin <=0.25 S <=0.25 S
Gentamicin <=2 S <=2 S
Gentamicin Synergy Screen >500 R
Meropenem <=1 S <=1 S
Piperacillin/Tazobactam <=8 S <=8 S
Tetracycline <=4 S <=4 S
Tobramycin <=2 S <=2 S
Trimethoprim/Sulfamethoxazole <=2/38 S <=2/38 S
Vancomycin 2 S
Imaging:
03/24/2025 CT abdomen/pelvis: Left upper quadrant abdominal percutaneous drainage catheter with adjacent accompanying collection of fluid measuring approximately 4 cm with bubbles of air. Midline true pelvic percutaneous drainage catheter anteriorly
without discrete accompanying abnormal focal fluid collection. Somewhat more well-defined fluid collections in the approximate locations of the paracolic gutters bilaterally, right side definitely with bubbles of air as well as slight increased
perihepatic/subcapsular fluid in the right upper quadrant with bubbles of air. Small collection of fluid as compared to extraluminal air within the left lower quadrant/true pelvis in close proximity to a thickened loop of small bowel, as noted above.
03/18/2025 CT abdomen/pelvis: Interval development of predominantly gas containing extraluminal collection within the left lower quadrant which is in close proximity to both a thickened small bowel loop and the Amish pouch suture line. Findings
are nonspecific but worrisome for possible leak or focal small bowel perforation. Somewhat limited evaluation in the absence of oral contrast. Significant interval improvement of fluid collection/abscess within the left upper quadrant, right
perihepatic, and anterior right pelvis. See above. Small bilateral pleural effusions with adjacent atelectasis within both posterior lower lobes.
03/11/2025 CT abdomen/pelvis: again seen are multiple intra-abdominal fluid collections. There has been interval placement of percutaneous drainage catheters with improvement in size of both collections although significant residual fluid
collections remain, particularly within the left upper quadrant.
03/05/2025: CT Chest/abd/pel W Iv Contrast: Postoperative abdomen with developing intra-abdominal abscesses in the left upper quadrant and right upper quadrant of the abdomen, and smaller probable developing abscesses in the upper abdomen inferior
to the distal stomach and in the anterior pelvis deep to the anterior pelvic wall.
Small bilateral pleural effusions and bilateral lower lobe compressive atelectasis.
02/27/2025: CT Abd/pel W Iv And Oral Contrast: 1. Postoperative leak at the left colonic anastomosis, with extraluminal contrast. Large degree of pneumoperitoneum.2. Trace bilateral pleural effusions with associated probable atelectasis. Cannot rule
out superimposed left lower lobe pneumonia.
CT Scan: Image Reviewed and Report Reviewed
[2025-03-24] MEDS: LOPRESSOR PO ×2 (11:37→19:16)
--- NOTE | 2025-03-24 12:22 | CM ---
F/U: Dr. Roche-Why to see if the patient is Acute vs. SNF appropriate. Patient has Medicare so no Authorization needed. Hospitalist stated that patient should be ready on Friday. PLAN: Acute Rehab vs. SNF.
[2025-03-24 12:57] LABS: Glucose - Point of Care 166 mg/dl (70-99)
[2025-03-24] MEDS: NOVOLOG FLEXPEN-MODERATE RESISTANCE 1 UNITS SC (13:20)
--- NOTE | 2025-03-24 13:45 | WOUNDNOTE ---
WOC RN Note: Stoma functioning for soft brown stool. Peristomal skin intact (dehisced peristomal wound pink). Changed colostomy appliance using Convatec 1 piece pouch # [id number] with an Jones seal. Mid abdominal wound vac peel and place dressing
intact with suction. Small serous yellow drainage in canister. Changed outer abdominal small wound dressings (old drain site?), wounds pink with small yellow drainage. Skin on heels and sacrum intact. Scrotum with mild red skin d/t moisture.
Miconazole powder applied. Patient turned to R semi side lying position using foam turning wedge and pillow. Patient can turn self in bed. Heels off bed with pillow. Patient has a bariatric air chair cushion in chair. Next ostomy appliance change
due Friday. Mid abdominal wound vac dressing change due Friday. Ostomy supplies in room. Patient observed appliance change. Will follow as needed.
--- NOTE | 2025-03-24 14:01 | W.PN.GS2 ---
Today's Communication / Plan
-
As above
Assessment / Plan
-
Assessment: 74 yo M POD 32 s/p reversal of end colostomy POD 26 s/p ex lap, colon resection, end colostomy creation for anastomotic leak
AFVSS
Labs have been stable, slight increase in WBC today noted
good ostomy function, tolerating diet though appetite limited
CT 03/18/25 with improved collections, nearly resolved. Contained extraluminal air near sigmoid staple line noted
Wound vac to midline placed 03/21, next change 03/28
Drains clearing, total output combined net 20cc past 24 hr
polymicrobial on cultures - ID following
Plan:
-- Reg diet (carb control)
limited PO intake - improving
ensure BID
-- Abx: per ID, recs appreciated
-- continue PT/OT/ST, anticipate SNF on d/c
-- midline wound vac in place
-- Medical management as per Hospitalist
-- Rpt CT today with improved collections, IR consult for drain repositioning/removal; area near the stump has coalesced into a small fluid collection likely not amenable to drainage
-- Cards notified of symptomatic bradycardia, will re-eval
-- Physiatry consult pending
Subjective Data
-
Date of Service: March 24, 2025
AF, nursing reports symptomatic bradycardia with urinary incontinence and feeling unwell. Otherwise no new issues.
Objective Data
-
Intake and Output
03/23/25 03/24/25 03/25/25
06:59 06:59 06:59
Intake Total 500 / 500 30 / 30
Output Total 1255 / 1255 1040 / 1040 350 / 350
Balance -755 / -755 -1010 / -1010 -350 / -350
Intake:
Oral fluids 240 / 240
IV piggybacks 200 / 200
Amount instilled into Drain ( 60 / 60
Total)
Left Abdomen Celso-Loyd C
Placed in IR
Right Lower Celso-Loyd B
Right Upper Abdomen Celso-
Loyd A
Output:
Drain Output (Total) 80 / 80 40 / 40
Left Abdomen Celso-Loyd C
Placed in IR
Right Lower Celso-Loyd B
Right Upper Abdomen Celso-
Loyd A
Urine, Voided 1175 / 1175 1000 / 1000 350 / 350
Vital Signs
Temp Pulse Resp BP Pulse Ox
98.5 F 90 22 145/56 97
03/24/25 11:50 03/24/25 12:00 03/24/25 12:00 03/24/25 12:00 03/24/25 07:56
Lab Results
03/23/25 05:29
03/23/25 05:29
Calcium 7.6 mg/dl (8.4-10.2) L 03/23/25 05:29
Phosphorus 3.0 mg/dl (2.5-4.5) 03/21/25 08:53
Magnesium 2.1 mg/dl (1.6-2.3) 03/21/25 08:53
Total Bilirubin 0.6 mg/dl (0.2-1.3) 03/21/25 08:53
Direct Bilirubin 1.9 mg/dl (0.0-0.4) H 03/02/25 03:45
AST 22 U/L (17-59) 03/21/25 08:53
ALT 21 U/L (0-50) 03/21/25 08:53
Alkaline Phosphatase 136 U/L (38-126) H 03/21/25 08:53
Total Protein 5.8 g/dl (6.3-8.2) L 03/21/25 08:53
Albumin 2.2 g/dl (3.5-5.0) L 03/21/25 08:53
Physical Exam
-
Gen: NAD
Abd: soft, approp ttp, drains serous, vac in place, binder in place
Patient has a hoffman catheter: No
Patient has a central line: Yes
--- NOTE | 2025-03-24 14:51 | WOUNDNOTE ---
WOC RN Note: Stoma functioning for soft brown stool. Peristomal skin intact (dehisced peristomal wound pink). Changed colostomy appliance using Convatec 1 piece pouch # [id number] with an Jones seal. Mid abdominal wound vac peel and place dressing
intact with suction. Small serous yellow drainage in canister. Changed outer abdominal small wound dressings (old drain site?), wounds pink with small yellow drainage. Skin on heels and sacrum intact. Scrotum with mild red skin d/t moisture.
Miconazole powder applied. Patient turned to R semi side lying position using foam turning wedge and pillow. Patient can turn self in bed. Heels off bed with pillow. Patient has a bariatric air chair cushion in chair. Next ostomy appliance change
due Friday. Mid abdominal wound vac dressing change due Friday. Ostomy supplies in room. Patient observed appliance change. Will follow as needed.
--- NOTE | 2025-03-24 16:14 | PTCARENOTE ---
right upper quadrant drain (B) exchanged over wire, downsized to 8.5F. 70ml cloudy cream fluid aspirated from drain B after exchange.
--- NOTE | 2025-03-24 16:21 | PTCARENOTE ---
Pt's assessment as documented. Aox3. Afib on tele monitor. Wound vac in place and dressings C/D/I. Pt to CT and IR via stretcher. Daughter at bedside, updated on plan of care. Ringing appropriately, call velazquez within reach.
[2025-03-24] MEDS: LIPITOR 10 MG PO (18:00)
[2025-03-24 18:10] LABS: Glucose - Point of Care 121 mg/dl (70-99)
[2025-03-24] MEDS: MELATONIN 5 MG PO (19:15)
[2025-03-24 21:33] LABS: Glucose - Point of Care 162 mg/dl (70-99)
--- NOTE | 2025-03-24 23:00 | RESPNOTE ---
PT was assisted in the placement of his home CPAP machine and is tolerating well on R/A.
[2025-03-25] VITALS (16 sets, daily range): BP systolic 115–148; BP diastolic 55–76; PULSE 101; BMI 35.1
[2025-03-25] MEDS: ZOSYN 50 IV ×4 (05:53→23:58)
--- NOTE | 2025-03-25 06:26 | PTCARENOTE ---
Caring for pt overnight. aaox3, afib, RA. no assessment changes. Wound vac remains in place, +BS, colosomy working well. Refused most Q2T's. SCDS, legs elevated. Denies pain. CHG wipes. R PICC. IVabx.
No metoprolol given d/t pt HR dropping down to the 30's for 20-30sconds at a time while awake and being severely symptomatic. Since holding metoprolol yesterday during the day and night pts HR did not drop overnight.
[2025-03-25 07:54] LABS: Glucose - Point of Care 167 mg/dl (70-99)
--- NOTE | 2025-03-25 08:25 | PN.DE.MGMTRT ---
Insulin Management
- -
03/25/2025: Diabetes Management Follow up
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
colostomy reversal for repeated perforated diverticulitis in 11/2024, found to have anastomotic leak CT imaging with pneumoperitoneum (02/27) requiring ex lap with bowel resection and end colostomy creation on 02/27. Prior to admission was taking no
diabetes medications. On admission A1C 6.2%, Cr 1.1, eGFR >60. today .9, > 60.
Pt extubated 03/09. He is awake, alert, oriented, sitting up in bed, doing well with pureed diet, able to discuss diabetes care plan. Daughter at bedside.
POD # 33 s/p reversal of end colostomy POD # 27 s/p ex lap, colon resection, end colostomy creation for anastomotic leak.
Diet was advanced to 2200 ernie 03/22, appetite continues to improve. Completed TPN. Lantus started on 03/17
03/24 premeal Glucose range 121 to 166, HS glucose 162, Fasting 167 POC today.
Will make no change to current regimen: Lantus 8 units in AM and moderate corrective insulin AC.
Discussed with Nurse. Will cont to follow.
Diabetes History
- -
Type of Diabetes: 2 requiring insulin
Pre-Admission Diabetes Regimen
Lab Results
Hemoglobin A1c 6.2 % (4.0-5.6) H 02/28/25 02:57
Insulin Pump Settings
IP Diabetes Regimen
03/24/25 03/24/25 03/24/25
12:45 17:59 21:22
POC Glucose 166 H 121 H 162 H
03/25/25
07:43
POC Glucose 167 H
Patient Education
[2025-03-25] MEDS: LASIX 40 MG PO ×2 (08:29→18:18)
[2025-03-25] MEDS: ELIQUIS 5 MG PO ×2 (08:29→19:48)
[2025-03-25] MEDS: ZESTRIL 2.5 MG PO (08:29)
[2025-03-25] MEDS: LANTUS 0.08 UNITS SC (08:29)
[2025-03-25] MEDS: NSS (PRESERVATIVE FREE) 10 ML IV (08:29)
[2025-03-25] MEDS: PROTONIX IV 40 MG IV (08:29)
[2025-03-25] MEDS: DESENEX/MITRAZOL/ZEASORB 1 APPLIC TOPICAL ×2 (08:29→19:47)
[2025-03-25] MEDS: NOVOLOG FLEXPEN-MODERATE RESISTANCE 1 UNITS SC ×2 (08:30→13:30)
[2025-03-25] MEDS: LOPRESSOR PO (09:51)
--- NOTE | 2025-03-25 10:29 | W.PN.ID1 ---
Addendum entered and electronically signed by Riley Ingram DO 03/25/25 13:47:
I saw and evaluated the patient. I reviewed the resident�s note and agree with findings and plan as documented in the resident�s note.
Original Note:
Date of Service
Date of Service: March 25, 2025
Today's Communication
Continue antibiotics
Assessment / Plan
74-year-old male with a significant PMHx of A-fib, colostomy (08/2024) for perforated diverticulitis with subsequent elective reversal of colostomy on 02/21/25. On 02/27 he presented to the hospital with nausea and vomiting and was found to have free
air in the abdomen and underwent ex lap, colon resection, end colostomy creation for anastomotic leak.
#Anastomotic leak / perforated viscus
#Abdominal abscesses; s/p drainage
- Cultures with E. coli, Citrobacter, Enterococcus, mixed anaerobes
#Leukocytosis
#Bacteremia with bacillus species
- contamination
Recommendations:
- Intra-abdominal cultures with E. coli, Citrobacter, Enterococcus; all isolate susceptible to Zosyn.
- Continue with Zosyn 3.375 gm IV q.6 hours (d#26)
Follow WBC and temp curve
Follow drain output.
IR drainage of fluid collection yesterday.
Drains adjusted yesterday, 2 drains removed, 1 still remain on the right side.
Continue with supportive measures.
����������������������������������������������������������
Chief Complaint
-: Leukocytosis and Other (Intra-abdominal abscesses)
Subjective / Review of Systems
Patient seen, resting comfortably in his bed. Reports no fever or chills, reports some mild abdominal pain when walking but otherwise doing well. Tolerated the procedure yesterday well and has 2 of his drains removed. Did report some nausea today.
Review of Systems: No Fever, No Chills, No Cough, Abdominal Pain and Nausea
Vital Signs / Physical Exam
Vital Signs
Vital Signs
Temp Pulse Resp BP Pulse Ox
98.2 F 114 25 119/56 95
03/25/25 08:00 03/25/25 06:00 03/25/25 06:00 03/25/25 04:00 03/25/25 08:30
Physical Exam
Constitutional: No Acute Distress, Comfortable and Non-toxic
Head: Normocephalic
Eyes: Sclera Anicteric
Cardiovascular: Irregular Rate, S1/S2 and Peripheral Edema
Pulmonary: Clear; Negative Wheezes
Gastrointestinal: Soft, Non Tender, Non Distended and Other (Colostomy bag with soft brown stool, One drain in place on the right draining purulent fluid. Wound VAC in place)
Extremities: Edema
Skin: Warm
Neurological: Awake, Alert, Oriented and AO x 3
Psychological: Calm
Objective Data
Lab Data
Lab Results
03/23/25 05:29
03/23/25 05:29
PT 19.9 Sec (11.4-14.6) H 02/27/25 16:52
INR 1.67 02/27/25 16:52
APTT 92.6 Sec (23.4-35.0) H 03/16/25 03:52
Estimated Creat Clear 81 ml/min 03/23/25 05:29
Lactic Acid 1.5 mmol/L (0.7-2.0) 03/01/25 03:18
Total Bilirubin 0.6 mg/dl (0.2-1.3) 03/21/25 08:53
AST 22 U/L (17-59) 03/21/25 08:53
ALT 21 U/L (0-50) 03/21/25 08:53
Alkaline Phosphatase 136 U/L (38-126) H 03/21/25 08:53
Most recent labs reviewed.
Micro Results:
03/05/25 17:11 Anaerobic Culture - Final
Abdomen
03/05/25 11:35 Blood Culture - Final
Blood/Venous No Growth - Final Report
03/06/25 10:50 Wound Culture - Final
Abdomen Escherichia coli
Citrobacter youngae
Enterococcus faecalis
Gram Stain - Final
03/05/25 17:11 Wound Culture - Final
Abdomen Escherichia coli
Citrobacter youngae
Enterococcus faecalis
Gram Stain - Final
03/01/25 20:44 Blood Culture - Final
Blood/Venous Bacillus species,not anthracis
Gram Stain - Final
03/01/25 19:46 Blood Culture - Final
Blood/Venous No Growth - Final Report
Wound/abscess/other Cult Final 03/05/2025
Few Escherichia coli
Few Citrobacter youngae
Moderate Enterococcus faecalis
Organism 1 Escherichia coli
Organism 2 Citrobacter youngae
Organism 3 Enterococcus faecalis
E.COLI C. YOUNGAE ENTFCL
M.I.C. RX M.I.C. RX M.I.C. RX
--------- --- --------- --- --------- ---
Amoxicillin/Potas. Clavulanate <=8/4 S >16/8 R
Ampicillin <=8 S >16 R <=2 S
Ampicillin/Sulbactam <=4/2 S >16/8 R
Aztreonam <=4 S >16 R
Cefazolin <=2 S >16 R
Cefepime <=2 S
Ceftazidime >16 R
Ceftriaxone >2 R
Ertapenem <=0.5 S <=0.5 S
Ciprofloxacin <=0.25 S <=0.25 S
Gentamicin <=2 S <=2 S
Gentamicin Synergy Screen >500 R
Meropenem <=1 S <=1 S
Piperacillin/Tazobactam <=8 S <=8 S
Tetracycline <=4 S <=4 S
Tobramycin <=2 S <=2 S
Trimethoprim/Sulfamethoxazole <=2/38 S <=2/38 S
Vancomycin 2 S
Imaging:
03/24/2025 CT abdomen/pelvis: Left upper quadrant abdominal percutaneous drainage catheter with adjacent accompanying collection of fluid measuring approximately 4 cm with bubbles of air. Midline true pelvic percutaneous drainage catheter anteriorly
without discrete accompanying abnormal focal fluid collection. Somewhat more well-defined fluid collections in the approximate locations of the paracolic gutters bilaterally, right side definitely with bubbles of air as well as slight increased
perihepatic/subcapsular fluid in the right upper quadrant with bubbles of air. Small collection of fluid as compared to extraluminal air within the left lower quadrant/true pelvis in close proximity to a thickened loop of small bowel, as noted above.
03/18/2025 CT abdomen/pelvis: Interval development of predominantly gas containing extraluminal collection within the left lower quadrant which is in close proximity to both a thickened small bowel loop and the Amish pouch suture line. Findings
are nonspecific but worrisome for possible leak or focal small bowel perforation. Somewhat limited evaluation in the absence of oral contrast. Significant interval improvement of fluid collection/abscess within the left upper quadrant, right
perihepatic, and anterior right pelvis. See above. Small bilateral pleural effusions with adjacent atelectasis within both posterior lower lobes.
03/11/2025 CT abdomen/pelvis: again seen are multiple intra-abdominal fluid collections. There has been interval placement of percutaneous drainage catheters with improvement in size of both collections although significant residual fluid
collections remain, particularly within the left upper quadrant.
03/05/2025: CT Chest/abd/pel W Iv Contrast: Postoperative abdomen with developing intra-abdominal abscesses in the left upper quadrant and right upper quadrant of the abdomen, and smaller probable developing abscesses in the upper abdomen inferior
to the distal stomach and in the anterior pelvis deep to the anterior pelvic wall.
Small bilateral pleural effusions and bilateral lower lobe compressive atelectasis.
02/27/2025: CT Abd/pel W Iv And Oral Contrast: 1. Postoperative leak at the left colonic anastomosis, with extraluminal contrast. Large degree of pneumoperitoneum.2. Trace bilateral pleural effusions with associated probable atelectasis. Cannot rule
out superimposed left lower lobe pneumonia.
--- NOTE | 2025-03-25 10:29 | W.PN.CD ---
Today's Communication / Plan
-
change metoprolol to coreg
stop lisinopril
we discussed topic of PPM if he devlops tachy/bea syndrome
Impression / Plan
-
74-year-old man with (suspected permanent) atrial fibrillation (on Eliquis), HFmrEF (last echo reportedly 45% EF), htn, h/o PE/DVT, BPH, GERD, h/o perforated diverticulitis and previous end colostomy with reversal who presented to [facility] ED after
discharge on 02/25 following elective colostomy reversal for repeated perforated diverticulitis in 11/2024, found to have anastomotic leak CT imaging with pneumoperitoneum (02/27) requiring ex lap with bowel resection and end colostomy creation. He
remains in ICU in persistent Afib with RVR.
Acute abdomen / Shock
- improved, pressors off 03/07
- Likely septic with CT A/P on 03/05 showing multiple intra-abdominal abscesses, now s/p IR drain to yuliet-hepatic abscess 03/06
- Strips. Purulent fluid By IR and another drain placed on 03/12/25
- Continue antibiotics
- Treatment as per professional tutor and general surgery
Severe bradycardia with pauses: improved
- Occurred on 03/04/2025 in the setting of Precedex, IV amiodarone, and beta-rey.
Suspected permanent Afib, now with RVR this admission
- As above, he had severe bradycardia with long pauses in the setting of Precedex, IV amiodarone, and beta-rey
- HR better, but some bradycardia with metoprolol
-will try coreg 3.125mg bid
-we discussed topic of PPM if he develops tachy/bea syndrome
- continue eliquis 5mg bid
HFimpEF: acute, improved
- Preop eval: Echo LVEF 40-45% and only mild valve disease but date of echo unclear, perhaps 07/2023.
- Cath: No obstructive CAD but date of cath uncertain, perhaps 08/2023.
- Echocardiogram 03/03/2025 with LVEF of 65%; RV appeared dilated with low normal systolic function.
- Currently Lasix is p.o. now 40mg bid: continue
HTN
-amlodipine and lisinopril stopped
-will try single agent coreg
Acute hypoxic respiratory failure
- extubated 03/08
Postoperative anastomotic leak status post exploratory laparotomy, colon resection and creation of end colostomy:
- Management as per Surgical team; on antibiotics.
Physical Exam
Vital Signs/Labs
Vital Signs
Temp Pulse Resp BP Pulse Ox
98.2 F 114 25 119/56 95
03/25/25 08:00 03/25/25 06:00 03/25/25 06:00 03/25/25 04:00 03/25/25 08:30
03/24/25 03/25/25 03/26/25
06:59 06:59 06:59
Actual Weight 103.8 kg 101.6 kg
03/23/25 05:29
03/23/25 05:29
PT 19.9 Sec (11.4-14.6) H 02/27/25 16:52
INR 1.67 02/27/25 16:52
APTT 92.6 Sec (23.4-35.0) H 03/16/25 03:52
Magnesium 2.1 mg/dl (1.6-2.3) 03/21/25 08:53
Triglycerides 76 mg/dl (10-149) 03/21/25 08:53
TSH 4.01 uIU/ml (0.47-4.68) 03/12/25 02:27
03/02/25 03/04/25 03/05/25
03:45 04:09 04:54
Oip-G-Cywpautayrn Pept 3370 [id number] 1980
03/07/25
03:14
Qvr-G-Utxxdwsykcz Pept 482
Physical Exam
Constitutional: No acute distress and Comfortable
EENT: Moist mucous membranes
Cardiovascular: JVD pressure is normal, Systolic murmur absent, Rhythm/rate is irregular and Pedal edema present
Respiratory: Respiratory effort normal
Neuro/Psych: AO x 3
Data Reviewed
-
Date of Service: March 25, 2025
EKG: Other (Tele: A fib 90s)
--- NOTE | 2025-03-25 11:02 | W.PN.GS2 ---
Addendum entered and electronically signed by Sahil Sandoval MD 03/25/25 11:45:
I saw and examined the patient.
The Mannequin Mounter's note was reviewed and I agree with the note.
Comment: Improving. No bea while off the Lopressor but tachy with PT, Cardiology recs appreciated - coreg started. 2/3 drains DC'ed yesterday by IR and one repositioned with newly seropurulent drainage. Plan for wound vac change today. Physiatry
consult for Mccarthy placement pending. Cont abx.
Original Note:
Today's Communication / Plan
-
wound vac
continue drain
cardiac meds adjusted
physiatry consult pending
Assessment / Plan
-
Assessment: 74 yo M POD 33 s/p reversal of end colostomy POD 27 s/p ex lap, colon resection, end colostomy creation for anastomotic leak
Afebrile. Alternating between bradycardia and tachycardia, bp stable
good ostomy function, tolerating diet though appetite limited
CT 03/18/25 with improved collections, nearly resolved. Contained extraluminal air near sigmoid staple line noted
Wound vac to midline placed 03/21, will change today at bedside
Drains clearing, left sided drains removed and right drain repositioned on 03/24 by IR
polymicrobial on cultures - ID following
Plan:
-- Reg diet (carb control)
limited PO intake - improving
ensure BID
-- Abx: per ID, recs appreciated
-- continue PT/OT/ST, anticipate SNF on d/c
-- midline wound vac change today
-- Medical management as per Hospitalist
-- Appreciate cardiology reeval, meds adjusted
-- Physiatry consult pending
Subjective Data
-
Date of Service: March 25, 2025
Pt seen and examined at bedside with Dr. Sandoval. Denies vomiting. Occasional episodes of nausea. Appetite improving slowly. Denies pain.
Objective Data
-
Intake and Output
03/24/25 03/25/25 03/26/25
06:59 06:59 06:59
Intake Total 110 / 110
Output Total 1040 / 1040 1700 / 1700 100 / 100
Balance -1010 / -1010 -1590 / -1590 -100 / -100
Intake:
IV piggybacks 100
Amount instilled into Drain (
Total)
Left Abdomen Celso-Loyd C
Placed in IR
Right Lower Celso-Loyd B
Right Upper Abdomen Celso-
Loyd A
Output:
Drain Output (Total) 40 / 40 50 / 50
Left Abdomen Celso-Loyd C
Placed in IR
Right Lower Celso-Loyd B 20 20 50 / 50
Right Upper Abdomen Celso-
Loyd A
Urine, Voided 1000 / 1000 1650 / 1650 100 / 100
Vital Signs
Temp Pulse Resp BP Pulse Ox
98.2 F 114 25 119/56 95
03/25/25 08:00 03/25/25 06:00 03/25/25 06:00 03/25/25 04:00 03/25/25 08:30
Lab Results
03/23/25 05:29
03/23/25 05:29
Calcium 7.6 mg/dl (8.4-10.2) L 03/23/25 05:29
Phosphorus 3.0 mg/dl (2.5-4.5) 03/21/25 08:53
Magnesium 2.1 mg/dl (1.6-2.3) 03/21/25 08:53
Total Bilirubin 0.6 mg/dl (0.2-1.3) 03/21/25 08:53
Direct Bilirubin 1.9 mg/dl (0.0-0.4) H 03/02/25 03:45
AST 22 U/L (17-59) 03/21/25 08:53
ALT 21 U/L (0-50) 03/21/25 08:53
Alkaline Phosphatase 136 U/L (38-126) H 03/21/25 08:53
Total Protein 5.8 g/dl (6.3-8.2) L 03/21/25 08:53
Albumin 2.2 g/dl (3.5-5.0) L 03/21/25 08:53
Physical Exam
-
Gen: NAD
Abd: soft, approp ttp, drain serous
Stoma with soft stool/flatus. pink.
Wound vac dressing removed for vac change with granulating wound bed noted
Patient has a hoffman catheter: No
Patient has a central line: Yes
--- NOTE | 2025-03-25 11:12 | WOUNDNOTE ---
[facility] RN NOTE: Received TT from SHOLA Garcia that vac was occluded. Visited patient to trouble shoot vac. TT with Eva Jimenez. Plan is to remove vac and surgical team will assess and change vac later today. Vac removed and wound was cleaned and packed
with saline moistened gauze. All vac supplies are outside of room.
[2025-03-25] MEDS: COREG 3.125 MG PO ×2 (11:19→19:47)
[2025-03-25 12:09] LABS: Glucose - Point of Care 166 mg/dl (70-99)
--- NOTE | 2025-03-25 12:19 | WOUNDNOTE ---
Midline Abdominal Incision 1950, MR [id number]
--- NOTE | 2025-03-25 12:20 | PTCARENOTE ---
When working with PT, pt's HR went as high as 150's when sitting and 180s when standing. Pt reported lightheadedness persistently. Upon laying down HR recovered to 110's and then 80's. Dr. Sandoval and Dr. Alan notified. Pt reports feeling improved at
this time.
--- NOTE | 2025-03-25 13:34 | VATNOTE ---
Small amount of excoriation under PICC dressing at 10 o'clock position, site of picc insertion without erythema or s/s infection. Discussed with primary nurse. Monitor.
--- NOTE | 2025-03-25 14:14 | W.PN.UPDATE ---
Update Note
Progress Note Update
S: Vac to midline incision with noted occlusion today
B: Vac dressing removed earlier this am, wet to dry dressing applied. Vac supplies obtained.
A: Midline incision granulating well. No purulent discharge. Progressing well with vac in place.
R: New 'peel and place' vac dressing applied to site, good seal obtained. Continue Low intestity negative pressure therapy @ 125 mmHg. Continue with dressing changes q5-7 days and prn.
--- NOTE | 2025-03-25 14:55 | CM ---
F/U: RN stated that the wound VAC was changed and SHAQUILLE Ruggiero still suspects that patient will be ready on Friday/ Friday. Updated the Acute Rehab Referral List via [facility] for [facility]. No notes yet from PM&R. Asked Liaison to re-review
this patient and asked about a bed next week- waiting to hear back. CM to follow up on Friday. PLAN: Acute Rehab vs. SNF.
--- NOTE | 2025-03-25 15:48 | PTCARENOTE ---
Pt's assessment as documented. Aox3. Afib on tele monitor. Wound vac replaced by surgery team and dressings C/D/I. Medications administered as ordered, see MAR. Ringing appropriately, call velazquez within reach.
[2025-03-25 16:53] LABS: Glucose - Point of Care 146 mg/dl (70-99)
[2025-03-25] MEDS: NOVOLOG FLEXPEN-MODERATE RESISTANCE SC (17:55)
[2025-03-25] MEDS: LIPITOR 10 MG PO (18:19)
[2025-03-25 21:28] LABS: Glucose - Point of Care 165 mg/dl (70-99)
[2025-03-25] MEDS: MELATONIN 5 MG PO (22:10)
--- NOTE | 2025-03-25 22:17 | RESPNOTE ---
pt assisted with own cpap machine
[2025-03-26] VITALS (12 sets, daily range): BP systolic 112–133; BP diastolic 53–74; BMI 34.9
[2025-03-26] MEDS: ZOSYN 50 IV ×3 (05:53→17:49)
--- NOTE | 2025-03-26 08:37 | W.PN.ID1 ---
Date of Service
Date of Service: March 26, 2025
Today's Communication
Continue antibiotics
Assessment / Plan
74-year-old male with a significant PMHx of A-fib, colostomy (08/2024) for perforated diverticulitis with subsequent elective reversal of colostomy on 02/21/25. On 02/27 he presented to the hospital with nausea and vomiting and was found to have free
air in the abdomen and underwent ex lap, colon resection, end colostomy creation for anastomotic leak.
#Anastomotic leak / perforated viscus
#Abdominal abscesses; s/p drainage
- Cultures with E. coli, Citrobacter, Enterococcus, mixed anaerobes
#Leukocytosis
#Bacteremia with bacillus species
- contamination
Recommendations:
- Intra-abdominal cultures with E. coli, Citrobacter, Enterococcus; all isolate susceptible to Zosyn.
- Continue with Zosyn 3.375 gm IV q.6 hours (d#27)
Follow WBC and temp curve. Repeat CBC pending for today.
Follow drain output.
Continue with supportive measures.
����������������������������������������������������������
Chief Complaint
-: Leukocytosis and Other (Intra-abdominal abscesses)
Subjective / Review of Systems
Review of Systems: No Fever
Vital Signs / Physical Exam
Vital Signs
Vital Signs
Temp Pulse Resp BP Pulse Ox
98.1 F 87 31 131/59 96
03/26/25 07:06 03/26/25 04:00 03/26/25 04:00 03/26/25 04:00 03/26/25 05:47
Physical Exam
Constitutional: No Acute Distress, Comfortable and Non-toxic
Pulmonary: Non Labored
Gastrointestinal: Non Distended and Other (Colostomy bag with soft brown stool. Right SUSAN in place. Wound VAC in place)
Extremities: Edema
Skin: Warm
Neurological: AO x 3
Psychological: Calm
Objective Data
Lab Data
PT 19.9 Sec (11.4-14.6) H 02/27/25 16:52
INR 1.67 02/27/25 16:52
APTT 92.6 Sec (23.4-35.0) H 03/16/25 03:52
Estimated Creat Clear 81 ml/min 03/23/25 05:29
Lactic Acid 1.5 mmol/L (0.7-2.0) 03/01/25 03:18
Total Bilirubin 0.6 mg/dl (0.2-1.3) 03/21/25 08:53
AST 22 U/L (17-59) 03/21/25 08:53
ALT 21 U/L (0-50) 03/21/25 08:53
Alkaline Phosphatase 136 U/L (38-126) H 03/21/25 08:53
Most recent labs reviewed.
Micro Results:
03/05/25 17:11 Anaerobic Culture - Final
Abdomen
03/05/25 11:35 Blood Culture - Final
Blood/Venous No Growth - Final Report
03/06/25 10:50 Wound Culture - Final
Abdomen Escherichia coli
Citrobacter youngae
Enterococcus faecalis
Gram Stain - Final
03/05/25 17:11 Wound Culture - Final
Abdomen Escherichia coli
Citrobacter youngae
Enterococcus faecalis
Gram Stain - Final
03/01/25 20:44 Blood Culture - Final
Blood/Venous Bacillus species,not anthracis
Gram Stain - Final
03/01/25 19:46 Blood Culture - Final
Blood/Venous No Growth - Final Report
Wound/abscess/other Cult Final 03/05/2025
Few Escherichia coli
Few Citrobacter youngae
Moderate Enterococcus faecalis
Organism 1 Escherichia coli
Organism 2 Citrobacter youngae
Organism 3 Enterococcus faecalis
E.COLI C. YOUNGAE ENTFCL
M.I.C. RX M.I.C. RX M.I.C. RX
--------- --- --------- --- --------- ---
Amoxicillin/Potas. Clavulanate <=8/4 S >16/8 R
Ampicillin <=8 S >16 R <=2 S
Ampicillin/Sulbactam <=4/2 S >16/8 R
Aztreonam <=4 S >16 R
Cefazolin <=2 S >16 R
Cefepime <=2 S
Ceftazidime >16 R
Ceftriaxone >2 R
Ertapenem <=0.5 S <=0.5 S
Ciprofloxacin <=0.25 S <=0.25 S
Gentamicin <=2 S <=2 S
Gentamicin Synergy Screen >500 R
Meropenem <=1 S <=1 S
Piperacillin/Tazobactam <=8 S <=8 S
Tetracycline <=4 S <=4 S
Tobramycin <=2 S <=2 S
Trimethoprim/Sulfamethoxazole <=2/38 S <=2/38 S
Vancomycin 2 S
Imaging:
03/24/2025 CT abdomen/pelvis: Left upper quadrant abdominal percutaneous drainage catheter with adjacent accompanying collection of fluid measuring approximately 4 cm with bubbles of air. Midline true pelvic percutaneous drainage catheter anteriorly
without discrete accompanying abnormal focal fluid collection. Somewhat more well-defined fluid collections in the approximate locations of the paracolic gutters bilaterally, right side definitely with bubbles of air as well as slight increased
perihepatic/subcapsular fluid in the right upper quadrant with bubbles of air. Small collection of fluid as compared to extraluminal air within the left lower quadrant/true pelvis in close proximity to a thickened loop of small bowel, as noted above.
03/18/2025 CT abdomen/pelvis: Interval development of predominantly gas containing extraluminal collection within the left lower quadrant which is in close proximity to both a thickened small bowel loop and the Amish pouch suture line. Findings
are nonspecific but worrisome for possible leak or focal small bowel perforation. Somewhat limited evaluation in the absence of oral contrast. Significant interval improvement of fluid collection/abscess within the left upper quadrant, right
perihepatic, and anterior right pelvis. See above. Small bilateral pleural effusions with adjacent atelectasis within both posterior lower lobes.
03/11/2025 CT abdomen/pelvis: again seen are multiple intra-abdominal fluid collections. There has been interval placement of percutaneous drainage catheters with improvement in size of both collections although significant residual fluid
collections remain, particularly within the left upper quadrant.
03/05/2025: CT Chest/abd/pel W Iv Contrast: Postoperative abdomen with developing intra-abdominal abscesses in the left upper quadrant and right upper quadrant of the abdomen, and smaller probable developing abscesses in the upper abdomen inferior
to the distal stomach and in the anterior pelvis deep to the anterior pelvic wall.
Small bilateral pleural effusions and bilateral lower lobe compressive atelectasis.
02/27/2025: CT Abd/pel W Iv And Oral Contrast: 1. Postoperative leak at the left colonic anastomosis, with extraluminal contrast. Large degree of pneumoperitoneum.2. Trace bilateral pleural effusions with associated probable atelectasis. Cannot rule
out superimposed left lower lobe pneumonia.
[2025-03-26 08:45] LABS: Glucose - Point of Care 128 mg/dl (70-99)
[2025-03-26] MEDS: LASIX 40 MG PO ×2 (09:06→17:49)
[2025-03-26] MEDS: NOVOLOG FLEXPEN-MODERATE RESISTANCE SC ×2 (09:06→17:51)
[2025-03-26] MEDS: DESENEX/MITRAZOL/ZEASORB 1 APPLIC TOPICAL ×2 (09:07→20:57)
[2025-03-26] MEDS: COREG 3.125 MG PO ×2 (09:07→20:58)
[2025-03-26] MEDS: ELIQUIS 5 MG PO ×2 (09:07→20:57)
[2025-03-26] MEDS: LANTUS 0.08 UNITS SC (09:07)
[2025-03-26] MEDS: NSS (PRESERVATIVE FREE) 10 ML IV (09:08)
[2025-03-26] MEDS: PROTONIX IV 40 MG IV (09:08)
[2025-03-26 10:23] LABS: Hematocrit 27.2 % (39.0-52.0); Hemoglobin 8.9 g/dL (13.0-18.0); Mean Corp Hgb Conc. 32.7 g/dL (33.0-37.0); Mean Corpuscular Volume 88.0 fL (80.0-94.0); Platelet Count 366 10^3/uL (130-400); Red Cell Dist. Width 14.9 % (11.5-14.5)
[2025-03-26 10:34] LABS: Blood Urea Nitrogen 14 mg/dl (9-20); Calcium 7.7 mg/dl (8.4-10.2); Carbon Dioxide 30 mmol/L (22-30); Chloride 100 mmol/L (98-107); Estimated Creatinine Clearance 89 ml/min; Glucose 173 mg/dl (70-99); Magnesium 1.9 mg/dl (1.6-2.3); Potassium 3.8 mmol/L (3.5-5.1); Sodium 134 mmol/L (135-145); eGFR > 60.00
--- NOTE | 2025-03-26 11:27 | W.PN.CD ---
Today's Communication / Plan
-
continue coreg
Impression / Plan
-
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
discharge on 02/25 following elective colostomy reversal for repeated perforated diverticulitis in 11/2024, found to have anastomotic leak CT imaging with pneumoperitoneum (02/27) requiring ex lap with bowel resection and end colostomy creation. He
remains in ICU in persistent Afib with RVR.
Acute abdomen / Shock
- improved, pressors off 03/07
- Likely septic with CT A/P on 03/05 showing multiple intra-abdominal abscesses, now s/p IR drain to yuliet-hepatic abscess 03/06
- Strips. Purulent fluid By IR and another drain placed on 03/12/25
- Continue antibiotics
- Treatment as per documentum consultant and general surgery
Severe bradycardia with pauses: improved
- Occurred on 03/04/2025 in the setting of Precedex, IV amiodarone, and beta-rey.
Suspected permanent Afib, now with RVR this admission
- As above, he had severe bradycardia with long pauses in the setting of Precedex, IV amiodarone, and beta-rey
- HR better, but some bradycardia with metoprolol
-now on coreg 3.125mg bid: continue
-we discussed topic of PPM if he develops tachy/bea syndrome
- continue eliquis 5mg bid
HFimpEF: acute, improved
- Preop eval: Echo LVEF 40-45% and only mild valve disease but date of echo unclear, perhaps 07/2023.
- Cath: No obstructive CAD but date of cath uncertain, perhaps 08/2023.
- Echocardiogram 03/03/2025 with LVEF of 65%; RV appeared dilated with low normal systolic function.
- Currently Lasix is p.o. now 40mg bid: continue
HTN
-amlodipine and lisinopril stopped
-now on single agent coreg
Acute hypoxic respiratory failure
- extubated 03/08
Postoperative anastomotic leak status post exploratory laparotomy, colon resection and creation of end colostomy:
- Management as per Surgical team; on antibiotics.
Physical Exam
Vital Signs/Labs
Vital Signs
Temp Pulse Resp BP Pulse Ox
98.1 F 87 31 131/59 96
03/26/25 07:06 03/26/25 04:00 03/26/25 04:00 03/26/25 04:00 03/26/25 05:47
03/25/25 03/26/25 03/27/25
06:59 06:59 06:59
Actual Weight 101.6 kg 100.9 kg
03/26/25 10:04
03/26/25 10:03
PT 19.9 Sec (11.4-14.6) H 02/27/25 16:52
INR 1.67 02/27/25 16:52
APTT 92.6 Sec (23.4-35.0) H 03/16/25 03:52
Magnesium 1.9 mg/dl (1.6-2.3) 03/26/25 10:03
Triglycerides 76 mg/dl (10-149) 03/21/25 08:53
TSH 4.01 uIU/ml (0.47-4.68) 03/12/25 02:27
03/02/25 03/04/25 03/05/25
03:45 04:09 04:54
Tus-F-Mqucgcsmnko Pept [id number] 1980
03/07/25
03:14
Wto-I-Wsvltdmryox Pept 482
Physical Exam
Constitutional: No acute distress and Comfortable
EENT: Moist mucous membranes
Cardiovascular: Pedal edema is absent, JVD pressure is normal, Systolic murmur absent and Rhythm/rate is irregular
Respiratory: Respiratory effort normal and Lungs clear to auscul.
Neuro/Psych: AO x 3
Data Reviewed
-
Date of Service: March 26, 2025
EKG: Other (Tele: A fib 80-90s)
Labs: Labs Reviewed by me
--- NOTE | 2025-03-26 12:05 | W.PN.GS2 ---
Today's Communication / Plan
-
c/w drain, vac, regular diet
Assessment / Plan
-
Assessment: 74 yo M POD 34 s/p reversal of end colostomy POD 28 s/p ex lap, colon resection, end colostomy creation for anastomotic leak
Afebrile. VSS
good ostomy function, tolerating diet though appetite limited
Wound vac with peel and place dressing to midline placed 03/21, changed dressing on 03/[address]
Ct on 03/24 with improved collections; left sided drains removed and right drain repositioned on 03/24 by IR
polymicrobial on cultures - ID following
No leukocytosis, mild hyponatremia
Plan:
-- Reg diet (carb control)
limited PO intake - improving
ensure BID
-- Abx: per ID, recs appreciated
-- continue PT/OT/ST, anticipate acute rehab vs SNF on d/c
-- midline wound vac, q5-7 day changes with peel and place dressing
-- Medical management as per Hospitalist
-- Appreciate cardiology, now on coreg
-- Physiatry consult pending
Tentative d/c to SNF vs acute rehab early next week
Subjective Data
-
Date of Service: March 26, 2025
Pt seen and examined at bedside with Dr. Gorman. Denies n/v but occasionally queasy. Poor appetite. Denies pain.
Objective Data
-
Intake and Output
03/25/25 03/26/25 03/27/25
06:59 06:59 06:59
Intake Total 110 / 110 240 / 240
Output Total 1700 / 1700 1090 / 1090 625 / 625
Balance -1590 / -1590 -850 / -850 -625 / -625
Intake:
Oral fluids 240 / 240
IV piggybacks 100 / 100
Amount instilled into Drain (
Total)
Right Lower Celso-Loyd B
Output:
Drain Output (Total) 40
Right Lower Celso-Loyd B
Urine, Voided 1650 / 1650 1050 / 1050 625 / 625
Vital Signs
Temp Pulse Resp BP Pulse Ox
97.8 F 87 31 131/59 96
03/26/25 11:57 03/26/25 04:00 03/26/25 04:00 03/26/25 04:00 03/26/25 05:47
Lab Results
03/26/25 10:04
03/26/25 10:03
Calcium 7.7 mg/dl (8.4-10.2) L 03/26/25 10:03
Phosphorus 3.0 mg/dl (2.5-4.5) 03/21/25 08:53
Magnesium 1.9 mg/dl (1.6-2.3) 03/26/25 10:03
Total Bilirubin 0.6 mg/dl (0.2-1.3) 03/21/25 08:53
Direct Bilirubin 1.9 mg/dl (0.0-0.4) H 03/02/25 03:45
AST 22 U/L (17-59) 03/21/25 08:53
ALT 21 U/L (0-50) 03/21/25 08:53
Alkaline Phosphatase 136 U/L (38-126) H 03/21/25 08:53
Total Protein 5.8 g/dl (6.3-8.2) L 03/21/25 08:53
Albumin 2.2 g/dl (3.5-5.0) L 03/21/25 08:53
Physical Exam
-
Gen: NAD
Abd: soft, approp ttp, drain mostly serous
Stoma with soft stool/flatus. pink.
Wound vac intact
Patient has a hoffman catheter: No
Patient has a central line: Yes
[2025-03-26 12:48] LABS: Glucose - Point of Care 173 mg/dl (70-99)
[2025-03-26] MEDS: NOVOLOG FLEXPEN-MODERATE RESISTANCE 1 UNITS SC (13:13)
--- NOTE | 2025-03-26 13:19 | VATNOTE ---
Conversation with ID, patient with continued PICC needs for at least ~1-2 more weeks.
[2025-03-26] MEDS: LIPITOR 10 MG PO (17:49)
[2025-03-26 18:01] LABS: Glucose - Point of Care 107 mg/dl (70-99)
[2025-03-26 21:35] LABS: Glucose - Point of Care 148 mg/dl (70-99)
[2025-03-26] MEDS: MELATONIN 5 MG PO (22:46)
[2025-03-27] VITALS (12 sets, daily range): BP systolic 106–148; BP diastolic 57–90
[2025-03-27] MEDS: ZOSYN 50 IV ×5 (00:35→23:01)
[2025-03-27 08:50] LABS: Glucose - Point of Care 95 mg/dl (70-99)
[2025-03-27] MEDS: LANTUS 0.08 UNITS SC (09:42)
[2025-03-27] MEDS: NOVOLOG FLEXPEN-MODERATE RESISTANCE SC ×2 (09:42→18:06)
[2025-03-27] MEDS: COREG 3.125 MG PO ×2 (09:42→19:49)
[2025-03-27] MEDS: ELIQUIS 5 MG PO ×2 (09:42→19:49)
[2025-03-27] MEDS: LASIX 40 MG PO ×2 (09:43→18:04)
[2025-03-27] MEDS: DESENEX/MITRAZOL/ZEASORB 1 APPLIC TOPICAL ×2 (09:43→19:49)
[2025-03-27] MEDS: PEPCID 40 MG PO (09:43)
--- NOTE | 2025-03-27 09:43 | W.PN.ID1 ---
Date of Service
Date of Service: March 27, 2025
Today's Communication
Continue Zosyn.
Assessment / Plan
74-year-old male with a significant PMHx of colostomy (08/2024) for perforated diverticulitis with elective reversal (02/21/25). On 02/27 he presented to the hospital with nausea and vomiting and was found to have free air in the abdomen and
underwent ex lap, colon resection, end colostomy creation for anastomotic leak.
#Anastomotic leak / perforated viscus
#Abdominal abscesses; s/p drainage
- Cultures with E. coli, Citrobacter, Enterococcus, mixed anaerobes
#Leukocytosis
#Bacteremia with bacillus species
- contamination
Recommendations:
- Intra-abdominal cultures with E. coli, Citrobacter, Enterococcus; all isolate susceptible to Zosyn.
- Continue with Zosyn 3.375 gm IV q.6 hours (d#28)
- Would anticipate at least another 7 days of antibiotics, but if white count remains normal, thereafter can discontinue.
Follow WBC and temp curve. Leukocytosis resolved today.
Follow drain output.
Continue with supportive measures.
����������������������������������������������������������
Chief Complaint
-: Leukocytosis and Other (Intra-abdominal abscesses)
Subjective / Review of Systems
Patient seen and examined. No significant changes overnight.
Review of Systems: No Fever and No Chills
Vital Signs / Physical Exam
Vital Signs
Vital Signs
Temp Pulse Resp BP Pulse Ox
97.8 F 89 19 120/62 96
03/27/25 08:34 03/27/25 06:00 03/27/25 06:00 03/27/25 06:00 03/27/25 02:26
Physical Exam
Constitutional: No Acute Distress, Comfortable and Non-toxic
Pulmonary: Non Labored
Gastrointestinal: Non Distended and Other (Ostomy bag in place. Single SUSAN in place.)
Extremities: Edema
Skin: Warm
Neurological: AO x 3
Psychological: Calm
Objective Data
Lab Data
Lab Results
03/26/25 10:04
03/26/25 10:03
PT 19.9 Sec (11.4-14.6) H 02/27/25 16:52
INR 1.67 02/27/25 16:52
APTT 92.6 Sec (23.4-35.0) H 03/16/25 03:52
Estimated Creat Clear 89 ml/min 03/26/25 10:03
Lactic Acid 1.5 mmol/L (0.7-2.0) 03/01/25 03:18
Total Bilirubin 0.6 mg/dl (0.2-1.3) 03/21/25 08:53
AST 22 U/L (17-59) 03/21/25 08:53
ALT 21 U/L (0-50) 03/21/25 08:53
Alkaline Phosphatase 136 U/L (38-126) H 03/21/25 08:53
Most recent labs reviewed.
Micro Results:
03/05/25 17:11 Anaerobic Culture - Final
Abdomen
03/05/25 11:35 Blood Culture - Final
Blood/Venous No Growth - Final Report
03/06/25 10:50 Wound Culture - Final
Abdomen Escherichia coli
Citrobacter youngae
Enterococcus faecalis
Gram Stain - Final
03/05/25 17:11 Wound Culture - Final
Abdomen Escherichia coli
Citrobacter youngae
Enterococcus faecalis
Gram Stain - Final
03/01/25 20:44 Blood Culture - Final
Blood/Venous Bacillus species,not anthracis
Gram Stain - Final
03/01/25 19:46 Blood Culture - Final
Blood/Venous No Growth - Final Report
Wound/abscess/other Cult Final 03/05/2025
Few Escherichia coli
Few Citrobacter youngae
Moderate Enterococcus faecalis
Organism 1 Escherichia coli
Organism 2 Citrobacter youngae
Organism 3 Enterococcus faecalis
E.COLI C. YOUNGAE ENTFCL
M.I.C. RX M.I.C. RX M.I.C. RX
--------- --- --------- --- --------- ---
Amoxicillin/Potas. Clavulanate <=8/4 S >16/8 R
Ampicillin <=8 S >16 R <=2 S
Ampicillin/Sulbactam <=4/2 S >16/8 R
Aztreonam <=4 S >16 R
Cefazolin <=2 S >16 R
Cefepime <=2 S
Ceftazidime >16 R
Ceftriaxone >2 R
Ertapenem <=0.5 S <=0.5 S
Ciprofloxacin <=0.25 S <=0.25 S
Gentamicin <=2 S <=2 S
Gentamicin Synergy Screen >500 R
Meropenem <=1 S <=1 S
Piperacillin/Tazobactam <=8 S <=8 S
Tetracycline <=4 S <=4 S
Tobramycin <=2 S <=2 S
Trimethoprim/Sulfamethoxazole <=2/38 S <=2/38 S
Vancomycin 2 S
Imaging:
03/24/2025 CT abdomen/pelvis: Left upper quadrant abdominal percutaneous drainage catheter with adjacent accompanying collection of fluid measuring approximately 4 cm with bubbles of air. Midline true pelvic percutaneous drainage catheter anteriorly
without discrete accompanying abnormal focal fluid collection. Somewhat more well-defined fluid collections in the approximate locations of the paracolic gutters bilaterally, right side definitely with bubbles of air as well as slight increased
perihepatic/subcapsular fluid in the right upper quadrant with bubbles of air. Small collection of fluid as compared to extraluminal air within the left lower quadrant/true pelvis in close proximity to a thickened loop of small bowel, as noted above.
03/18/2025 CT abdomen/pelvis: Interval development of predominantly gas containing extraluminal collection within the left lower quadrant which is in close proximity to both a thickened small bowel loop and the Amish pouch suture line. Findings
are nonspecific but worrisome for possible leak or focal small bowel perforation. Somewhat limited evaluation in the absence of oral contrast. Significant interval improvement of fluid collection/abscess within the left upper quadrant, right
perihepatic, and anterior right pelvis. See above. Small bilateral pleural effusions with adjacent atelectasis within both posterior lower lobes.
03/11/2025 CT abdomen/pelvis: again seen are multiple intra-abdominal fluid collections. There has been interval placement of percutaneous drainage catheters with improvement in size of both collections although significant residual fluid
collections remain, particularly within the left upper quadrant.
03/05/2025: CT Chest/abd/pel W Iv Contrast: Postoperative abdomen with developing intra-abdominal abscesses in the left upper quadrant and right upper quadrant of the abdomen, and smaller probable developing abscesses in the upper abdomen inferior
to the distal stomach and in the anterior pelvis deep to the anterior pelvic wall.
Small bilateral pleural effusions and bilateral lower lobe compressive atelectasis.
02/27/2025: CT Abd/pel W Iv And Oral Contrast: 1. Postoperative leak at the left colonic anastomosis, with extraluminal contrast. Large degree of pneumoperitoneum.2. Trace bilateral pleural effusions with associated probable atelectasis. Cannot rule
out superimposed left lower lobe pneumonia.
--- NOTE | 2025-03-27 09:49 | W.PN.CD ---
Today's Communication / Plan
-
continue coreg 3.125mg bid
Impression / Plan
-
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
discharge on 02/25 following elective colostomy reversal for repeated perforated diverticulitis in 11/2024, found to have anastomotic leak CT imaging with pneumoperitoneum (02/27) requiring ex lap with bowel resection and end colostomy creation. He
remains in ICU in persistent Afib with RVR.
Acute abdomen / Shock
- improved, pressors off 03/07
- Likely septic with CT A/P on 03/05 showing multiple intra-abdominal abscesses, now s/p IR drain to yuliet-hepatic abscess 03/06
- Strips. Purulent fluid By IR and another drain placed on 03/12/25
- Continue antibiotics
- Treatment as per sleeping room cleaner and general surgery
Severe bradycardia with pauses: improved
- Occurred on 03/04/2025 in the setting of Precedex, IV amiodarone, and beta-rey.
-occasional 2 second pauses on tele (A fib with slow response)
Suspected permanent Afib, now with RVR this admission
- As above, he had severe bradycardia with long pauses in the setting of Precedex, IV amiodarone, and beta-rey
- HR better, but some bradycardia with metoprolol
-now on coreg 3.125mg bid: continue
-we discussed topic of PPM if he develops tachy/bea syndrome
- continue eliquis 5mg bid
HFimpEF: acute, improved
- Preop eval: Echo LVEF 40-45% and only mild valve disease but date of echo unclear, perhaps 07/2023.
- Cath: No obstructive CAD but date of cath uncertain, perhaps 08/2023.
- Echocardiogram 03/03/2025 with LVEF of 65%; RV appeared dilated with low normal systolic function.
- Currently Lasix is p.o. now 40mg bid: continue
HTN
-amlodipine and lisinopril stopped
-now on single agent coreg
Acute hypoxic respiratory failure
- extubated 03/08
Postoperative anastomotic leak status post exploratory laparotomy, colon resection and creation of end colostomy:
- Management as per Surgical team; on antibiotics.
Physical Exam
Vital Signs/Labs
Vital Signs
Temp Pulse Resp BP Pulse Ox
97.8 F 89 19 120/62 96
03/27/25 08:34 03/27/25 06:00 03/27/25 06:00 03/27/25 06:00 03/27/25 02:26
03/26/25 03/27/25 03/28/25
06:59 06:59 06:59
Actual Weight 100.9 kg
03/26/25 10:04
03/26/25 10:03
PT 19.9 Sec (11.4-14.6) H 02/27/25 16:52
INR 1.67 02/27/25 16:52
APTT 92.6 Sec (23.4-35.0) H 03/16/25 03:52
Magnesium 1.9 mg/dl (1.6-2.3) 03/26/25 10:03
Triglycerides 76 mg/dl (10-149) 03/21/25 08:53
TSH 4.01 uIU/ml (0.47-4.68) 03/12/25 02:27
03/02/25 03/04/25 03/05/25
03:45 04:09 04:54
Ovx-J-Aczwljjxrsr Pept [id number] 1980
03/07/25
03:14
Nqx-J-Klmteqnttuy Pept 482
Physical Exam
Constitutional: No acute distress and Comfortable
EENT: Moist mucous membranes
Cardiovascular: Pedal edema is absent, JVD pressure is normal, Systolic murmur absent and Rhythm/rate is irregular
Respiratory: Respiratory effort normal and Lungs clear to auscul.
Neuro/Psych: AO x 3
Data Reviewed
-
Date of Service: March 27, 2025
EKG: Other (A fib, mostly 80-90s, occasional 2 sec pauses)
Labs: Labs Reviewed by me
[2025-03-27 12:22] LABS: Glucose - Point of Care 179 mg/dl (70-99)
--- NOTE | 2025-03-27 12:37 | W.PN.GS2 ---
Today's Communication / Plan
-
c/w diet, add reglan
c/w drain/vac
Assessment / Plan
-
Assessment: 74 yo M POD 35 s/p reversal of end colostomy POD 29 s/p ex lap, colon resection, end colostomy creation for anastomotic leak
Afebrile. VSS
good ostomy function, tolerating diet though appetite limited with intermittent nausea
Wound vac with peel and place dressing to midline placed 03/21, changed dressing on 03/[address] on 03/24 with improved collections; left sided drains removed and right drain repositioned on 03/24 by IR
polymicrobial on cultures - ID following
Plan:
-- Reg diet (carb control)
limited PO intake
ensure BID
-- Add reglan 5mg AC
-- Abx: per ID, recs appreciated
-- continue PT/OT/ST, anticipate acute rehab vs SNF on d/c
-- midline wound vac, q5-7 day changes with peel and place dressing
-- Medical management as per Hospitalist
-- Appreciate cardiology, now on coreg
-- Physiatry consult pending
Anticipate d/c to SNF vs acute rehab early this week
Subjective Data
-
Date of Service: March 27, 2025
Pt seen and examined at bedside with Dr. Gorman. Denies vomiting. Tolerating diet but still with intermittent nausea and not much appetite. No complaints of pain.
Objective Data
-
Intake and Output
03/26/25 03/27/25 03/28/25
06:59 06:59 06:59
Intake Total 240 / 240 580 / 580
Output Total 1090 / 1090 1630 / 1630 175 / 175
Balance -850 / -850 -1050 / -1050 -175 / -175
Intake:
Oral fluids 240 / 240 480 / 480
IV piggybacks 100 / 100
Output:
Drain Output (Total)
Right Lower Celso-Loyd B
Urine, Voided 1050 / 1050 1600 / 1600 175 / 175
Vital Signs
Temp Pulse Resp BP Pulse Ox
97.6 F 89 19 120/62 96
03/27/25 11:13 03/27/25 06:00 03/27/25 06:00 03/27/25 06:00 03/27/25 02:26
Lab Results
03/26/25 10:04
03/26/25 10:03
Calcium 7.7 mg/dl (8.4-10.2) L 03/26/25 10:03
Phosphorus 3.0 mg/dl (2.5-4.5) 03/21/25 08:53
Magnesium 1.9 mg/dl (1.6-2.3) 03/26/25 10:03
Total Bilirubin 0.6 mg/dl (0.2-1.3) 03/21/25 08:53
Direct Bilirubin 1.9 mg/dl (0.0-0.4) H 03/02/25 03:45
AST 22 U/L (17-59) 03/21/25 08:53
ALT 21 U/L (0-50) 03/21/25 08:53
Alkaline Phosphatase 136 U/L (38-126) H 03/21/25 08:53
Total Protein 5.8 g/dl (6.3-8.2) L 03/21/25 08:53
Albumin 2.2 g/dl (3.5-5.0) L 03/21/25 08:53
Physical Exam
-
Gen: NAD
Abd: soft, approp ttp, drain mostly serous
Stoma with soft stool/flatus. pink.
Wound vac intact
Patient has a hoffman catheter: No
Patient has a central line: Yes
[2025-03-27] MEDS: REGLAN 5 MG PO ×2 (13:25→18:04)
[2025-03-27] MEDS: NOVOLOG FLEXPEN-MODERATE RESISTANCE 1 UNITS SC (13:25)
--- NOTE | 2025-03-27 14:51 | VATNOTE ---
Excoriation under picc dsg slightly improved from initial assessment.
[2025-03-27 18:04] LABS: Glucose - Point of Care 98 mg/dl (70-99)
[2025-03-27] MEDS: LIPITOR 10 MG PO (18:04)
[2025-03-27 21:31] LABS: Glucose - Point of Care 119 mg/dl (70-99)
[2025-03-27] MEDS: MELATONIN 5 MG PO (23:01)
[2025-03-28] VITALS (16 sets, daily range): BP systolic 114–143; BP diastolic 52–107; PULSE 84–89; BMI 33.7
[2025-03-28] MEDS: ZOSYN 50 IV ×3 (05:50→17:09)
[2025-03-28 07:34] LABS: Glucose - Point of Care 112 mg/dl (70-99)
--- NOTE | 2025-03-28 07:42 | PN.DE.MGMTRT ---
Insulin Management
- -
03/28/2025: Diabetes Management Follow up
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
colostomy reversal for repeated perforated diverticulitis in 11/2024, found to have anastomotic leak CT imaging with pneumoperitoneum (02/27) requiring ex lap with bowel resection and end colostomy creation on 02/27. Prior to admission was taking no
diabetes medications. On admission A1C 6.2%, Cr 1.1, eGFR >60. today .9, > 60.
Pt extubated 03/09. He is awake, alert, oriented, sitting up in bed, doing well with pureed diet, able to discuss diabetes care plan. Daughter at bedside.
POD # 36 s/p reversal of end colostomy POD # 30 s/p ex lap, colon resection, end colostomy creation for anastomotic leak.
Diet was advanced to 2200 ernie on 03/22, appetite continues to improve. Completed TPN. Lantus started on 03/17
03/27 premeal Glucose range 98 to 179, HS glucose 119, Fasting 112 POC today.
Will make no change to current regimen: Lantus 8 units in AM and moderate corrective insulin AC.
Discussed with Nurse. Will cont to follow.
Diabetes History
- -
Type of Diabetes: 2 requiring insulin
Pre-Admission Diabetes Regimen
Lab Results
Hemoglobin A1c 6.2 % (4.0-5.6) H 02/28/25 02:57
Insulin Pump Settings
IP Diabetes Regimen
03/27/25 03/27/25 03/27/25
08:39 12:11 17:53
POC Glucose 95 179 H 98
03/27/25 03/28/25
21:20 07:22
POC Glucose 119 H 112 H
Patient Education
[2025-03-28] MEDS: NOVOLOG FLEXPEN-MODERATE RESISTANCE SC (07:51)
[2025-03-28] MEDS: LANTUS 0.08 UNITS SC (08:23)
[2025-03-28] MEDS: ELIQUIS 5 MG PO ×2 (08:24→20:08)
[2025-03-28] MEDS: COREG 3.125 MG PO ×2 (08:24→20:08)
[2025-03-28] MEDS: DESENEX/MITRAZOL/ZEASORB 1 APPLIC TOPICAL ×2 (08:24→20:08)
[2025-03-28] MEDS: REGLAN 5 MG PO ×3 (08:24→17:57)
[2025-03-28] MEDS: LASIX 40 MG PO ×2 (08:24→17:09)
[2025-03-28] MEDS: PEPCID 40 MG PO (08:24)
--- NOTE | 2025-03-28 08:27 | W.PN.ID1 ---
Date of Service
Date of Service: March 28, 2025
Today's Communication
Continue antibiotics.
Assessment / Plan
74-year-old male with a significant PMHx of colostomy (08/2024) for perforated diverticulitis with elective reversal (02/21/25). On 02/27 he presented to the hospital with nausea and vomiting and was found to have free air in the abdomen and
underwent ex lap, colon resection, end colostomy creation for anastomotic leak.
#Anastomotic leak / perforated viscus
#Abdominal abscesses; s/p drainage
- Cultures with E. coli, Citrobacter, Enterococcus, mixed anaerobes
#Leukocytosis
#Bacteremia with bacillus species
- contamination
Recommendations:
- Intra-abdominal cultures with E. coli, Citrobacter, Enterococcus; all isolate susceptible to Zosyn.
- Continue with Zosyn 3.375 gm IV q.6 hours (d#29)
- Would anticipate at least another 7 days (or so) of antibiotics. (Given severity of infection, duration not delineated)
Follow WBC and temp curve. Prior leukocytosis improved/resolved.
Follow drain output.
PT.
Continue with supportive measures.
����������������������������������������������������������
Chief Complaint
-: Leukocytosis and Other (Intra-abdominal abscesses)
Subjective / Review of Systems
Patient seen and examined. No specific complaints today.
Review of Systems: No Fever and No Chills
Vital Signs / Physical Exam
Vital Signs
Vital Signs
Temp Pulse Resp BP Pulse Ox
98.2 F 93 19 127/67 96
03/28/25 08:00 03/28/25 08:24 03/28/25 06:00 03/28/25 08:24 03/27/25 23:24
Physical Exam
Constitutional: No Acute Distress, Comfortable, Non-toxic and Obese
Eyes: No Conjunctival Hemorrhage and Sclera Anicteric
Cardiovascular: S1/S2; Negative S3/S4
Pulmonary: Clear; Negative Wheezes or Rales
Gastrointestinal: Soft and Other (Ostomy bag with brown stool. Right SUSAN with scant serous drainage. No significant purulence)
Extremities: Edema
Skin: Warm
Neurological: AO x 3
Psychological: Calm
Objective Data
Lab Data
Lab Results
03/26/25 10:04
03/26/25 10:03
PT 19.9 Sec (11.4-14.6) H 02/27/25 16:52
INR 1.67 02/27/25 16:52
APTT 92.6 Sec (23.4-35.0) H 03/16/25 03:52
Estimated Creat Clear 89 ml/min 03/26/25 10:03
Lactic Acid 1.5 mmol/L (0.7-2.0) 03/01/25 03:18
Total Bilirubin 0.6 mg/dl (0.2-1.3) 03/21/25 08:53
AST 22 U/L (17-59) 03/21/25 08:53
ALT 21 U/L (0-50) 03/21/25 08:53
Alkaline Phosphatase 136 U/L (38-126) H 03/21/25 08:53
Most recent labs reviewed.
Micro Results:
03/05/25 17:11 Anaerobic Culture - Final
Abdomen
03/05/25 11:35 Blood Culture - Final
Blood/Venous No Growth - Final Report
03/06/25 10:50 Wound Culture - Final
Abdomen Escherichia coli
Citrobacter youngae
Enterococcus faecalis
Gram Stain - Final
03/05/25 17:11 Wound Culture - Final
Abdomen Escherichia coli
Citrobacter youngae
Enterococcus faecalis
Gram Stain - Final
03/01/25 20:44 Blood Culture - Final
Blood/Venous Bacillus species,not anthracis
Gram Stain - Final
03/01/25 19:46 Blood Culture - Final
Blood/Venous No Growth - Final Report
Wound/abscess/other Cult Final 03/05/2025
Few Escherichia coli
Few Citrobacter youngae
Moderate Enterococcus faecalis
Organism 1 Escherichia coli
Organism 2 Citrobacter youngae
Organism 3 Enterococcus faecalis
E.COLI C. YOUNGAE ENTFCL
M.I.C. RX M.I.C. RX M.I.C. RX
--------- --- --------- --- --------- ---
Amoxicillin/Potas. Clavulanate <=8/4 S >16/8 R
Ampicillin <=8 S >16 R <=2 S
Ampicillin/Sulbactam <=4/2 S >16/8 R
Aztreonam <=4 S >16 R
Cefazolin <=2 S >16 R
Cefepime <=2 S
Ceftazidime >16 R
Ceftriaxone >2 R
Ertapenem <=0.5 S <=0.5 S
Ciprofloxacin <=0.25 S <=0.25 S
Gentamicin <=2 S <=2 S
Gentamicin Synergy Screen >500 R
Meropenem <=1 S <=1 S
Piperacillin/Tazobactam <=8 S <=8 S
Tetracycline <=4 S <=4 S
Tobramycin <=2 S <=2 S
Trimethoprim/Sulfamethoxazole <=2/38 S <=2/38 S
Vancomycin 2 S
Imaging:
03/24/2025 CT abdomen/pelvis: Left upper quadrant abdominal percutaneous drainage catheter with adjacent accompanying collection of fluid measuring approximately 4 cm with bubbles of air. Midline true pelvic percutaneous drainage catheter anteriorly
without discrete accompanying abnormal focal fluid collection. Somewhat more well-defined fluid collections in the approximate locations of the paracolic gutters bilaterally, right side definitely with bubbles of air as well as slight increased
perihepatic/subcapsular fluid in the right upper quadrant with bubbles of air. Small collection of fluid as compared to extraluminal air within the left lower quadrant/true pelvis in close proximity to a thickened loop of small bowel, as noted above.
03/18/2025 CT abdomen/pelvis: Interval development of predominantly gas containing extraluminal collection within the left lower quadrant which is in close proximity to both a thickened small bowel loop and the Amish pouch suture line. Findings
are nonspecific but worrisome for possible leak or focal small bowel perforation. Somewhat limited evaluation in the absence of oral contrast. Significant interval improvement of fluid collection/abscess within the left upper quadrant, right
perihepatic, and anterior right pelvis. See above. Small bilateral pleural effusions with adjacent atelectasis within both posterior lower lobes.
03/11/2025 CT abdomen/pelvis: again seen are multiple intra-abdominal fluid collections. There has been interval placement of percutaneous drainage catheters with improvement in size of both collections although significant residual fluid
collections remain, particularly within the left upper quadrant.
03/05/2025: CT Chest/abd/pel W Iv Contrast: Postoperative abdomen with developing intra-abdominal abscesses in the left upper quadrant and right upper quadrant of the abdomen, and smaller probable developing abscesses in the upper abdomen inferior
to the distal stomach and in the anterior pelvis deep to the anterior pelvic wall.
Small bilateral pleural effusions and bilateral lower lobe compressive atelectasis.
02/27/2025: CT Abd/pel W Iv And Oral Contrast: 1. Postoperative leak at the left colonic anastomosis, with extraluminal contrast. Large degree of pneumoperitoneum.2. Trace bilateral pleural effusions with associated probable atelectasis. Cannot rule
out superimposed left lower lobe pneumonia.
--- NOTE | 2025-03-28 08:56 | VATNOTE ---
Excoriated area under picc dressing less pink today.
--- NOTE | 2025-03-28 10:38 | W.PN.CD ---
Today's Communication / Plan
-
Continue Eliquis and Coreg at current doses
Monitor tele
Impression / Plan
-
74-year-old man with (suspected permanent) atrial fibrillation (on Eliquis), HFmrEF (last echo reportedly 45% EF), htn, h/o PE/DVT, BPH, GERD, h/o perforated diverticulitis and previous end colostomy with reversal who presented to [facility] ED after
discharge on 02/25 following elective colostomy reversal for repeated perforated diverticulitis in 11/2024, found to have anastomotic leak CT imaging with pneumoperitoneum (02/27) requiring ex lap with bowel resection and end colostomy creation. He
remains in ICU in persistent Afib with RVR.
Acute abdomen
- improved, pressors off 03/07
- Likely septic with CT A/P on 03/05 showing multiple intra-abdominal abscesses, now s/p IR drain to yuliet-hepatic abscess 03/06
- Strips. Purulent fluid By IR and another drain placed on 03/12/25
- Continue antibiotics
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
Severe bradycardia with pauses: improved
- Occurred on 03/04/2025 in the setting of Precedex, IV amiodarone, and beta-rey.
-occasional 2 second pauses on tele (A fib with slow response)
Suspected permanent Afib, now with RVR this admission
- As above, he had severe bradycardia with long pauses in the setting of Precedex, IV amiodarone, and beta-rey
- HR better, but some bradycardia with metoprolol
-now on coreg 3.125mg bid: continue
-Monitor need for PPM
- continue eliquis 5mg bid
HFimpEF: acute, improved
- Preop eval: Echo LVEF 40-45% and only mild valve disease but date of echo unclear, perhaps 07/2023.
- Cath: No obstructive CAD but date of cath uncertain, perhaps 08/2023.
- Echocardiogram 03/03/2025 with LVEF of 65%; RV appeared dilated with low normal systolic function.
- Currently Lasix is p.o. now 40mg bid: continue
HTN
-amlodipine and lisinopril stopped
-now on single agent coreg
Acute hypoxic respiratory failure
- extubated 03/08
Postoperative anastomotic leak status post exploratory laparotomy, colon resection and creation of end colostomy:
- Management as per Surgical team; on antibiotics.
Subjective:
No CP, dyspna, or palps.
No review: AFib, good rate control last 24 hrs, no severe bradys
Physical Exam
Vital Signs/Labs
Vital Signs
Temp Pulse Resp BP Pulse Ox
98.2 F 74 17 128/54 95
03/28/25 08:00 03/28/25 10:00 03/28/25 10:00 03/28/25 10:00 03/28/25 10:06
03/27/25 03/28/25 03/29/25
06:59 06:59 06:59
Actual Weight 97.4 kg
03/26/25 10:04
03/26/25 10:03
PT 19.9 Sec (11.4-14.6) H 02/27/25 16:52
INR 1.67 02/27/25 16:52
APTT 92.6 Sec (23.4-35.0) H 03/16/25 03:52
Magnesium 1.9 mg/dl (1.6-2.3) 03/26/25 10:03
Triglycerides 76 mg/dl (10-149) 03/21/25 08:53
TSH 4.01 uIU/ml (0.47-4.68) 03/12/25 02:27
03/02/25 03/04/25 03/05/25
03:45 04:09 04:54
Cqv-L-Ysebfauoaxs Pept 3370 3260 1980
03/07/25
03:14
Zkr-E-Yzuljtnodur Pept 482
Physical Exam
Constitutional: No acute distress
EENT: Anicteric
Cardiovascular: Rhythm/rate is irregular and S1S2 is normal
Respiratory: Respiratory effort normal and Lungs clear to auscul.
GI: Soft
Neuro/Psych: Alert
Data Reviewed
-
Date of Service: March 28, 2025
--- NOTE | 2025-03-28 11:00 | W.PN.GS2 ---
Today's Communication / Plan
-
dispo planning
Assessment / Plan
-
Assessment: 74 yo M POD 36 s/p reversal of end colostomy POD 30 s/p ex lap, colon resection, end colostomy creation for anastomotic leak
Afebrile. VSS
good ostomy function, tolerating diet, nausea improved with po AC reglan
Wound vac with peel and place dressing to midline placed 03/21, changed dressing on 03/25 with good granulation of tissues noted during change
Ct on 03/24 with improved collections; left sided drains removed and right drain repositioned on 03/24 by IR
polymicrobial on cultures - ID following
Plan:
-- Reg diet (carb control)
ensure BID
-- Continue reglan 5mg AC
-- Abx: per ID, recs appreciated. anticipate another week of IV zosyn via PICC
-- continue PT/OT, anticipate acute rehab vs SNF on d/c. Physiatry consult pending.
-- midline wound vac, q5-7 day changes with peel and place dressing. wound care following
-- Medical management as per Hospitalist
-- Appreciate cardiology, now on coreg
Nearing readiness for discharge hopefully tomorrow vs Friday but still needs physiatry eval for possible acute rehab vs snf. CM following for placement.
--Continue Wound vac on d/c
--Ancipitate continued IV abx via PICC on dc, ID following will defer to ID team regarding duration
--IR drain to remain in place on d/c
--Our office will arrange OP follow up with surgeon and OP CT imaging in approximately 1 week
Subjective Data
-
Date of Service: March 28, 2025
Pt seen and examined at bedside with Dr. Patel. Denies pain. Some 'queasiness' yesterday but none today. Better PO intake today. Denies fevers/chills.
Objective Data
-
Intake and Output
03/27/25 03/28/25 03/29/25
06:59 06:59 06:59
Intake Total 580 / 580 240 / 240
Output Total 1630 / 1630 2825 / 2825 550 / 550
Balance -1050 / -1050 -2585 / -2585 -550 / -550
Intake:
Oral fluids 480 / 480 240 / 240
IV piggybacks 100 / 100
Output:
Liquid stool amount 150 / 150
Colostomy 150 / 150
Drain Output (Total)
Right Lower [place]Loyd B
Urine, Voided 1600 / 1600 2675 / 2675 550 / 550
Vital Signs
Temp Pulse Resp BP Pulse Ox
98.2 F 74 17 128/54 95
03/28/25 08:00 03/28/25 10:00 03/28/25 10:00 03/28/25 10:00 03/28/25 10:06
Lab Results
03/26/25 10:04
03/26/25 10:03
Calcium 7.7 mg/dl (8.4-10.2) L 03/26/25 10:03
Phosphorus 3.0 mg/dl (2.5-4.5) 03/21/25 08:53
Magnesium 1.9 mg/dl (1.6-2.3) 03/26/25 10:03
Total Bilirubin 0.6 mg/dl (0.2-1.3) 03/21/25 08:53
Direct Bilirubin 1.9 mg/dl (0.0-0.4) H 03/02/25 03:45
AST 22 U/L (17-59) 03/21/25 08:53
ALT 21 U/L (0-50) 03/21/25 08:53
Alkaline Phosphatase 136 U/L (38-126) H 03/21/25 08:53
Total Protein 5.8 g/dl (6.3-8.2) L 03/21/25 08:53
Albumin 2.2 g/dl (3.5-5.0) L 03/21/25 08:53
Physical Exam
-
Gen: NAD
Abd: soft, nt, nd, drain seropurulent
Stoma with soft stool/flatus. pink.
Wound vac intact
Patient has a hoffman catheter: No
Patient has a central line: Yes
--- NOTE | 2025-03-28 11:45 | WOUNDNOTE ---
WOC RN Note: Patient's colostomy appliance changed using Convatec 1 piece pouch with Jones seal. Peristomal/wound skin intact. Stool soft and brown. Next appliance change due end of week. Patient observed appliance change. Heels off bed with pillow.
[facility]. Instructed patient frequent repositioning. Bariatric air chair cushion in place. Mid abdominal vac dressing intact to 125mmhg continuous suction. Vac tubing padded with ABD pad under abdominal binder. Ostomy
supplies in room.
[2025-03-28] MEDS: NOVOLOG FLEXPEN-MODERATE RESISTANCE 1 UNITS SC ×2 (12:30→17:09)
[2025-03-28 12:40] LABS: Glucose - Point of Care 179 mg/dl (70-99)
--- NOTE | 2025-03-28 15:26 | PTCARENOTE ---
Assumed care of patient at beginning of this shift from previous RN. Ox3 with flat affect; continues to need encouragement. Patient worked with therapy and OOB to chair; HR 180s getting from bed to chair and with raising his arms with OTAnthony Velasquez
Tony and Dr Mayorga both made aware via phone call as TT is down. No change in orders or instructions by either at this time. HR currently 90s and remains afib. BP 123/60. See worklist for full assessment and vital signs.
--- NOTE | 2025-03-28 16:57 | CM ---
F/U: Hospital Notes state that patient will likely be ready tomorrow (vs. Friday) that he will leave with the following: Wound vac, IV abx via PICC on dc, and IR drain to remain in place on d/c. SHAQUILLE Ruggiero left message for [facility] Liaison. Still no
note from Dr. Anna. PLAN: Acute Rehab vs. SNF
--- NOTE | 2025-03-28 17:00 | CON.MD ---
Addendum entered and electronically signed by Sy Anna MD 03/28/25 22:41:
CHF: HFpEF improved. Lasix p.o. 40mg bid
- Preop eval: Echo LVEF 40-45% and only mild valve disease but date of echo unclear, perhaps 07/2023.
- Cath: No obstructive CAD but date of cath uncertain, perhaps 08/2023.
- Echocardiogram 03/03/2025 with LVEF of 65%; RV appeared dilated with low normal systolic function.
Original Note:
Documented by User: Carla Atwood PA-C 03/28/25 18:05
Consultation - Medical
-
Referring Provider:�Sahil Hardy
Chief Complaint:�Debility
�
History of Present Illness:74-year-old male with a PMH of (A-fib on Eliquis, CHF, hypertension, PE/DVT, colostomy (08/2024) for perforated diverticulitis with subsequent elective reversal of colostomy on 02/21/25. On 02/27 presented to the hospital
with nausea and vomiting and was found to have free air in the abdomen and underwent ex lap, colon resection, end colostomy creation for anastomotic leak. Postoperatively he had atrial fibrillation with RVR in the 140-150s. 03/04/25, severe
bradycardia with pauses in the setting of Precedex, IV amiodarone, and beta-rey.
He was initially in septic shock requiring vasopressors. CT abdomen on 03/05 showed multiple intra-abdominal abscesses; s/p yuliet-hepatic abscess drainage 03/06 and another drain placed on 03/12/25. Cultures with E. coli, Citrobacter, Enterococcus,
mixed anaerobes. ID recommends continuing Zosyn. CT Abd/Pelvic shows continued presence of fluid collections
03/24-Patient with symptomatic bradycardia with urinary incontinence and feeling unwell. Cardiology re-evaluated. HR better, but some bradycardia with metoprolol. Now on coreg 3.125mg bid with plan for PPM if he develops tachy/bea syndrome.
continue Eliquis 5mg bid.
03/25- Vac to midline incision with noted occlusion. supply addressed. New 'peel and place' vac dressing applied to site, good seal obtained. Continue Low intensity negative pressure therapy @ 125 mmHg. Continue with dressing changes q5-7 days and
prn.
Per therapy notes, patient continues to be limited due to elevated heart rate up to the 180s with minimal movements from bedroom to bathroom and side stepping with rolling walker.
Patient seen at bedside. Denies any chest pain, dizziness, lightheadedness, nausea, vomiting, fever, chills, dysuria, abdominal pain.
Patient tachycardic and tachypneic just sitting in recliner conversing. Heart rate elevated to 106 and respiratory up to 36 without active movement.
�
Past Medical History:�A-fib on Eliquis, CHF, hypertension, PE/DVT, diverticulitis, h/p perforated diverticulitis, colostomy
Procedure History:�colostomy, colon resection
Family History:�Mom�heart disease, pacemaker, father�lung cancer was a smoker
�
Social History:�
Functional Level Premorbidly:�Independent with all activities�
Functional Level Currently:�Eat-mod assist, grooming-max assist, toileting-dependent, bed mobility-min assist, dressing-max assist, second person needed for progressing elevated HR- walking to bathroom 141, walking back to bed-169 and weak. 03/25- 4
small steps side ways with HR up to 184. Lightheaded sitting edge of bed. Ambulated 20 feet with min assist x 1, second person for IV/telemetry management distance limited for safety�heart rate increased as high as 189. Recovered quickly with
seated rest
�
Tobacco:�Denies�
Alcohol:�Denies�
Drug use:�Denies�
�
Lives with:�Alone, upon dc to go to daughter's home- offal worker can help
24-hour assistance available:�
Number of floors:�3
# steps to enter:�9
# steps to second floor:stair glide
Potential First floor set up:�
Driving:�yes
Occupation:�retired from [employer]
�
�
Allergies:�
Allergy/AdvReac Type Severity Reaction Status Date / Time
No Known Allergies Allergy Unverified 02/15/25 10:32
�
Review of Systems:�
Constitutional: (x) aNormal _fatigue
Eye: (x) Normal _
Ear/Nose/Throat: (x) Normal _
Respiratory: (x) Normal _
Cardiovascular: (x) abNormal _Afib with rvr
Gastrointestinal: (x) abNormal _abdominal pain, colostomy,
Genitourinary: (x) Normal _
Musculoskeletal: (x) abNormal _weakness
Integumentary: (x) Normal _
Neurologic: (x) Normal _
Psychiatric: (x) abNormal _depression,anxiety
Endocrine: (x) Normal _
Hematologic/Lymphatic: (x) Normal _
Allergic/Immunologic: (x) Normal _
�
Medications:�
Active Current Visit Medication List
Category Date Time Status
Acetaminophen [Tylenol] Med 03/09/25 20:27 Active
650 mg PO Q4HPRN PRN
Apixaban [Eliquis] Med 03/16/25 08:30 Active
5 mg PO BID
Atorvastatin [Lipitor] Med 03/11/25 18:00 Active
10 mg PO QPM
Carvedilol [Coreg] Med 03/25/25 10:00 Active
3.125 mg PO BID
Dextrose 50%-Water [Dextrose 50% Syringe] Med 02/27/25 23:00 Active
12.5 grams IV [id number] PRN
Famotidine [Pepcid] Med 03/27/25 08:00 Active
40 mg PO DAILY
Flush (0.9% Sodium Chloride) [Flush (Nss)] Med 02/27/25 23:00 Active
See Dose Instructions IV PER PROTOCOL
Furosemide [Lasix] Med 03/16/25 16:00 Active
40 mg PO BID@0800,1600
Glucagon [GlucaGen] Med 02/27/25 23:00 Active
1 mg IM PRN PRN
HydrALAZINE [Apresoline] Med 03/09/25 07:50 Active
10 mg IV Q4HPRN PRN
Insulin Aspart Corrective Mod [Novolog Flexpen-Moderate Med 03/15/25 11:30 Active
Resistance]
See Protocol SC AC
Insulin Glargine Lantus [Lantus] 8 units Med 03/17/25 12:00 Active
Subcutaneous Insulin Syringe [Syringe-Insulin] 0 unit
SC DAILY
Melatonin Med 03/13/25 22:00 Active
5 mg PO HS
Metoclopramide [Reglan] Med 03/27/25 11:30 Active
5 mg PO AC
Miconazole Nitrate [Desenex/Mitrazol/Zeasorb] Med 03/01/25 20:00 Active
See Dose Instructions TOPICAL BID
Ondansetron Injectable [Zofran] Med 03/26/25 12:06 Active
4 mg IV Q6HPRN PRN
Piperacillin/Tazo 3.375 Gram [Zosyn] Med 03/10/25 12:00 Active
3.375 gram in 50 ml IV Q6H
�
Vitals:�
Temp Pulse Resp BP Pulse Ox
97.7 F 95 24 123/60 95
03/28/25 15:37 03/28/25 14:00 03/28/25 14:00 03/28/25 14:00 03/28/25 10:06
Height 5 ft 7 in
Actual Weight 97.4 kg
Body Mass Index (BMI) 33.7
�
Physical Exam:�
General Appearance/Observation: Well-developed, well-nourished individual in no apparent distress.�
Pain/Comfort Assessment: Colostomy site
Mood/Affect: Appropriate, pleasant
�
Integumentary/Operative Site:�
�� Pressure Ulcer Evaluation: absent over heels.�
��
�� Other Type of Wound: abdominal drains, ostomy, midline wound vac
�
Eyes: Conjunctiva/Lids: normal���� Pupils: pupils equal round and reactive to light and Accommodation�
Ears/Nose/Throat: oral mucosa moist,� throat clear.������������ Lips/Teeth/Gums: dry lips�
Neck: No muscle spasm or tenderness�
Cardiovascular: Heart: irregular, no murmur�
Pulses: dorsalis pedis 2+ bilaterally�
Respiratory: Respiratory Effort/Chest Expansion: normal������� Auscultation: Clear to auscultation bilaterally�
Gastrointestinal: abdomen not tender, obese, normal abdominal bowel sounds
Ostomy-left side of abdomen, wound vac�, drain-right
Genitourinary: No Hartman�
Extremities:�Edema: right more than left�Cyanosis: None�Trophic�changes: None, peeling skin- left inner thigh
�
Neurology Exam:
Orientation: Alert, Oriented to self, Time, Place�
Memory: Intact for immediate medical concerns
Comprehension: Intact
Two step command: Intact
Naming: Intact
Cranial Nerves:
�� CNII:�Pupillary light reflex: Intact����Visual Field: Intact, except for mild double vision on the right side pass midline
�� CN III, IV, : Extraocular muscles: Intact�
�� CN V:�Facial Sensation�at�Forehead: Intact,�Maxilla: Intact,�Mandible: Intact
�� CN VII:�Facial movement: Symmetric
�� CN VIII:�Hearing: Normal
�� CN IX/X:�Speech & swallow: Normal,�Position of Uvula: Midline
�� CN XI:�Shoulder shrug: Symmetric
�� CN XII:�Tongue protrusion: Midline
Sensory:
�� Light touch: Intact in bilateral upper and lower extremities
��
�
Reflexes:
�� Biceps: 2+ bilaterally
�� Brachioradialis: 2+ bilaterally
�� Triceps: 2+ bilaterally
�� Patellar: Absent bilaterally
�� Achilles: Absent bilaterally
�� Babinski: Down going bilaterally
�� Clonus: None
�� Darrin: Negative bilaterally�
Cerebellar: Dysmetria/Ataxia: None�
Musculoskeletal:
Motor: (Manual muscle scale 0-5)�
Muscle SA EF WE EE FF FA HF KE DF EHL PF
Right� 4 5 5 5 4 4 5 5 5
Left 4 5 5 5 4 4 5 5 5
�
Tone: Normal in all extremities�
Range of Motion: Passively within normal limits in all extremities�, deferred legs
�
Lab Results:
Labs
WBC 8.7 10^3/uL (4.8-10.8) 03/26/25 10:04
RBC 3.09 10^6/uL (4.70-6.10) L 03/26/25 10:04
Hgb 8.9 g/dL (13.0-18.0) L 03/26/25 10:04
Hct 27.2 % (39.0-52.0) L 03/26/25 10:04
MCV 88.0 fL (80.0-94.0) 03/26/25 10:04
MCH 28.8 pg (27.0-31.0) 03/26/25 10:04
MCHC 32.7 g/dL (33.0-37.0) L 03/26/25 10:04
RDW 14.9 % (11.5-14.5) H 03/26/25 10:04
Plt Count 366 10^3/uL (130-400) 03/26/25 10:04
MPV 9.6 fL (7.4-10.4) 03/26/25 10:04
Abs Immat Gran (auto) 1.4 10^3/uL (0-0.05) H 03/04/25 04:09
Absolute Neuts (auto) 12.9 10^3/uL (1.4-6.5) H 03/04/25 04:09
Absolute Lymphs (auto) 0.9 10^3/uL (1.2-3.4) L 03/04/25 04:09
Absolute Monos (auto) 2.2 10^3/uL (0.1-0.6) H 03/04/25 04:09
Absolute Eos (auto) 0.0 10^3/uL (0-0.7) 03/04/25 04:09
Absolute Basos (auto) 0.1 10^3/uL (0-0.2) 03/04/25 04:09
CBC Comment Cancelled 03/04/25 10:45
Immature Gran % 7.8 % (0-0.5) H 03/04/25 04:09
Neutrophils % 73.9 % (42.2-75.2) 03/04/25 04:09
Lymphocytes % 5.0 % (20.5-51.1) L 03/04/25 04:09
Monocytes % 12.5 % (1.7-9.3) H 03/04/25 04:09
Eosinophils % 0.1 % (0-6) 03/04/25 04:09
Basophils % 0.7 % (0-2) 03/04/25 04:09
Nucleated RBC % 0.3 % (-) 03/04/25 04:09
Retic Count 1.2 % (0.4-2.8) 03/04/25 04:09
PT 19.9 Sec (11.4-14.6) H 02/27/25 16:52
INR 1.67 02/27/25 16:52
APTT 92.6 Sec (23.4-35.0) H 03/16/25 03:52
pH 7.43 (7.35-7.45) 03/12/25 11:08
pCO2 49 mmHg (35-48) H 03/12/25 11:08
pO2 88 mmHg (83-108) 03/12/25 11:08
HCO3 32.5 mmol/L (21-28) H 03/12/25 11:08
Base Excess 7.3 mmol/L 03/12/25 11:08
ABG O2 Sat (Measured) 98.0 % (94-98) 03/12/25 11:08
POC ABG O2 Sat (Calc) 99.0 % (94-98) H 02/27/25 20:19
VBG pH 7.46 (7.32-7.43) H 03/12/25 02:29
VBG pCO2 47 mmHg (35-48) 03/12/25 02:29
VBG pO2 74 mmHg (30-50) H 03/12/25 02:29
VBG HCO3 33.4 mmol/L (22-27) H 03/12/25 02:29
VBG O2 Sat (Jhonny) 97.9 % 03/12/25 02:29
VBG Base Excess 8.6 mmol/L (-4 to +4) 03/12/25 02:29
VBG O2 Therapy 03/12/25 02:29
O2 Delivery Level 1lnc 03/12/25 11:08
Sodium 134 mmol/L (135-145) L 03/26/25 10:03
Potassium 3.8 mmol/L (3.5-5.1) 03/26/25 10:03
Chloride 100 mmol/L (98-107) 03/26/25 10:03
Carbon Dioxide 30 mmol/L (22-30) 03/26/25 10:03
BUN 14 mg/dl (9-20) 03/26/25 10:03
Creatinine 0.8 mg/dL (0.7-1.3) 03/26/25 10:03
Estimated Creat Clear 89 ml/min 03/26/25 10:03
eGFR > 60.00 03/26/25 10:03
Glucose 173 mg/dl (70-99) H 03/26/25 10:03
Hemoglobin A1c 6.2 % (4.0-5.6) H 02/28/25 02:57
Lactic Acid 1.5 mmol/L (0.7-2.0) 03/01/25 03:18
Calcium 7.7 mg/dl (8.4-10.2) L 03/26/25 10:03
Phosphorus 3.0 mg/dl (2.5-4.5) 03/21/25 08:53
Magnesium 1.9 mg/dl (1.6-2.3) 03/26/25 10:03
Total Bilirubin 0.6 mg/dl (0.2-1.3) 03/21/25 08:53
Direct Bilirubin 1.9 mg/dl (0.0-0.4) H 03/02/25 03:45
AST 22 U/L (17-59) 03/21/25 08:53
ALT 21 U/L (0-50) 03/21/25 08:53
Alkaline Phosphatase 136 U/L (38-126) H 03/21/25 08:53
Bvf-B-Qggseegyieb Pept 482 pg/ml 03/07/25 03:14
Total Protein 5.8 g/dl (6.3-8.2) L 03/21/25 08:53
Albumin 2.2 g/dl (3.5-5.0) L 03/21/25 08:53
Triglycerides 76 mg/dl (10-149) 03/21/25 08:53
Lipase 54 U/L (23-300) 02/27/25 12:37
TSH 4.01 uIU/ml (0.47-4.68) 03/12/25 02:27
Random Vancomycin 15.2 ug/ml 03/10/25 03:11
Specimen Type Arterial 02/27/25 20:19
POC pH 7.35 (7.35-7.45) 02/27/25 20:19
POC Base Excess -2.8 mmol/L 02/27/25 20:19
POC pO2 140 mmHg (83-108) H 02/27/25 20:19
POC pCO2 41 mmHg (35-48) 02/27/25 20:19
POC HCO3 23 mmol/L (21-28) 02/27/25 20:19
POC Glucose 160 mg/dl (70-99) H 03/28/25 17:08
POC Glucose 162 mg/dl (70-99) H 02/27/25 20:19
POC Sodium 140 mmol/L (136-145) 02/27/25 20:19
POC Potassium 2.8 mmol/L (3.5-5.1) L 02/27/25 20:19
POC Ionized Calcium 1.49 mmol/L (1.15-1.33) H 02/27/25 20:19
POC Lactate 2.89 mmol/L (0.36-0.75) H 02/27/25 20:19
POC Hemoglobin Calc 12.7 02/27/25 20:19
POC Hematocrit 37 % PCV (42-52) L 02/27/25 20:19
POC Hemodilution Yes 02/27/25 20:19
Blood Type A POS 02/27/25 12:37
Antibody Screen Negative (Negative) 02/27/25 12:37
Crossmatch IS Only See Detail 02/27/25 12:37
�
Diagnostic Results:�as per HPI�
�CHEST:Small bilateral pleural effusions, right greater than left and accompanying bilateral lower lobe subsegmental atelectasis and/or pneumonia are again seen
ABDOMEN:Percutaneous anterior left upper quadrant drainage catheter is again seen with slight increase fluid identified contiguous with the anterior or rub the stomach, image 25 series 201 containing bubbles of air measuring approximately 4 cm,.
Slightly greater defined focal fluid is seen in the approximate level of the left paracolic gutter, image 50 series 201Coronal reformatted image 28 measuring approximately 8 x 3 cm, slightly greater in transverse dimension. In the region of the
right paracolic gutter along the cortical margin of the right lobe of the liver there is a slightly increased collection of fluid with bubbles of air crescentic in appearance, best appreciated on axial image 38 series 201 measuring at least 6.5 cm
and there is overall slightly increased adjacent right lateral subdiaphragmatic, perihepatic 'fluid collection' measuring at least 9 cm, image 19 series 201. Gallstones are again noted in the gallbladder. Solid organs of the abdomen are otherwise
stable. Calcific atherosclerotic changes of the abdominal aorta are seen without aneurysmal dilatation. Evaluation of intestinal tract markedly limited without oral contrast, without intestinal obstruction. Left lower quadrant diverting colostomy is
again seen. There is marked stranding throughout the mesentery.
PELVIS:Within the soft tissues of the left true pelvis there appears to be a small ill-defined volume of extraluminal fluid as compared to extraluminal air on prior study measuring greater than 2 cm, image 60 series 201 again in close proximity to a
thickened loop of small bowel and adjacent Monet pouch suture line. No focal intrinsic abnormality of the urinary bladder is seen. Approximate midline anterior true pelvic pigtail drainage catheter is again seen without significant accompanying
fluid.
SKELETON: No suspicious lesions.
IMPRESSION:
Left upper quadrant abdominal percutaneous drainage catheter with adjacent accompanying collection of fluid measuring approximately 4 cm with bubbles of air.
Midline true pelvic percutaneous drainage catheter anteriorly without discrete accompanying abnormal focal fluid collection.
Somewhat more well-defined fluid collections in the approximate locations of the paracolic gutters bilaterally, right side definitely with bubbles of air as well as slight increased perihepatic/subcapsular fluid in the right upper quadrant with
bubbles of air.
Small collection of fluid as compared to extraluminal air within the left lower quadrant/true pelvis in close proximity to a thickened loop of small bowel, as noted above.
Additional findings, as detailed above.
Assessment: 74 year old Male with (A-fib with RVR, CHF, POD 36 s/p reversal of end colostomy, POD 30 s/p ex lap, colon resection, end colostomy creation for anastomotic leak with abdominal abscesses on antibiotics.
�
Plan�
PM&R�PT/OT to increase independence with ADLs, improve balance, coordination, endurance, strength, mobility, community reintegration, decreased burden of care on others and family education.�
�
Debility: PT/OT
Reversal of Colostomy with anastomosis leak: continue care per surgery and ID
Abdominal abscesses; s/p drainage. Cultures with E. coli, Citrobacter, Enterococcus, mixed anaerobes. Zosyn 3.375 gm IV q.6 hours. Ancipitate continued IV abx via PICC on d/c. IR drain to remain in place on d/c
Atrial fibrillation:� Eliquis 5mg bid and rate control medications.�
Bradycardia: Metoprolol dced. coreg 3.125mg bid, discussion of PPM if he develops tachy/bea syndrome����
HFimpEF: acute, improved. Lasix p.o. 40mg bid
- Preop eval: Echo LVEF 40-45% and only mild valve disease but date of echo unclear, perhaps 07/2023.
- Cath: No obstructive CAD but date of cath uncertain, perhaps 08/2023.
- Echocardiogram 03/03/2025 with LVEF of 65%; RV appeared dilated with low normal systolic function.
HTN: now on Coreg. Hydralazine 10 mg IV every 4 as needed
HLD: Statin�
Coronary artery disease�: Aspirin, statin, beta-rey�
DM II: Accu-Cheks, insulin sliding scale, Glargine 8 units, Reglan 5 mg p.o. AC
Bilateral lower extremity edema: Consider TEDS as able. Increased fluid will cause more force requirement to move lower extremities which requires more strength and increases fatigue.�
Anemia: Likely multifactorial.� Continue to monitor.�
Psych: Psychology consult.� Monitor mood, adjust medications as needed.�
Skin: monitor for pressure sores/rashes/lesions.�
Insomnia: Melatonin 5mg HS
Poor Appetite: Ensure bid
Pain: acetaminophen as needed.�
Bowel: Colace and Senna, PRN bisacodyl.�
Nausea: Zofran 4 mg IV every 6 as needed
Bladder: Time void, PVRs, PRN straight cath.�
GI Prophylaxis: Famotidine 40 mg daily
DVT Prophylaxis: mechanical and Eliquis
Pulmonary: Incentive spirometry�
Morbid obesity: Continue to [employer] travel counselor patient about diet adjustments to control obesity. Body habitus and increased force to move body and extremities causes further difficulty with functional tasks.�
Safety: Continue to reinforce assistance with all transfers.�
Code Status:� DNR�
Dispo�(date/plan/equipment needs): Home with family care.� Social history reviewed.�
�
Functional and Medical Goals:�Modified Independent with ADL�s, ambulation, transfers�
�
Discharge Destination:�Patient would benefit from acute inpatient rehabilitation. However, currently not ideal candidate due to limitations with elevated heart rate up to 189 with functional mobility in room with rolling walker and at conversational
level with respiration from mid-20's up to low 30s and HR of 103-106 sitting in recliner. May be better suited for acute inpatient of 3 hours daily once heart rate is under better control at rest and mostly with activities.
�
�
Thank you for allowing me to care for your patient. Please contact me with any questions or concerns.
Consultation
-
Date/Time Consultation Performed: 03/28/2025
Requesting Provider: Dr. Sahil Sandoval
Performing Provider: Carla Atwood/Dr. Anna
Reason for Consultation: Debility

Documented by User: Sy Anna MD 03/28/25 22:38
Consultation - Medical
-
Referring Provider:�Sahil Hardy
Chief Complaint:�Debility
�
History of Present Illness:74-year-old male with a PMH (A-fib on Eliquis, CHF, hypertension, PE/DVT, colostomy (08/2024) for perforated diverticulitis with subsequent elective reversal of colostomy on 02/21/25. On 02/27 presented to the hospital with
nausea and vomiting and was found to have free air in the abdomen and underwent ex lap, colon resection, end colostomy creation for anastomotic leak. Postoperatively he had atrial fibrillation with RVR in the 140-150s. 03/04/25, severe bradycardia
with pauses in the setting of Precedex, IV amiodarone, and beta-rey.
He was initially in septic shock requiring vasopressors. CT abdomen on 03/05 showed multiple intra-abdominal abscesses; s/p yuliet-hepatic abscess drainage 03/06 and another drain placed on 03/12/25. Cultures with E. coli, Citrobacter, Enterococcus,
mixed anaerobes. ID recommends continuing Zosyn. CT Abd/Pelvic shows continued presence of fluid collections
03/24-Patient with symptomatic bradycardia with urinary incontinence and feeling unwell. Cardiology re-evaluated. HR better, but some bradycardia with metoprolol. Now on coreg 3.125mg bid with plan for PPM if he develops tachy/bea syndrome.
continue Eliquis 5mg bid.
03/25- Vac to midline incision with noted occlusion. supply addressed. New 'peel and place' vac dressing applied to site, good seal obtained. Continue Low intensity negative pressure therapy @ 125 mmHg. Continue with dressing changes q5-7 days and
prn.
Per therapy notes, patient continues to be limited due to elevated heart rate up to the 180s with minimal movements from bedroom to bathroom and side stepping with rolling walker.
Patient seen at bedside. Denies any chest pain, dizziness, lightheadedness, nausea, vomiting, fever, chills, dysuria, abdominal pain.
Patient tachycardic and tachypneic just sitting in recliner conversing. Heart rate elevated to 106 and respiratory up to 36 without active movement.
�
Past Medical History:�A-fib on Eliquis, CHF, hypertension, PE/DVT, diverticulitis, h/p perforated diverticulitis, colostomy
Procedure History:�colostomy, colon resection
Family History:�Mom�heart disease, pacemaker, father�lung cancer was a smoker
�
Social History:�
Functional Level Premorbidly:�Independent with all activities�
Functional Level Currently:�Eat-mod assist, grooming-max assist, toileting-dependent, bed mobility-min assist, dressing-max assist, second person needed for progressing elevated HR- walking to bathroom 141, walking back to bed-169 and weak. 03/25- 4
small steps side ways with HR up to 184. Lightheaded sitting edge of bed. Ambulated 20 feet with min assist x 1, second person for IV/telemetry management distance limited for safety�heart rate increased as high as 189. Recovered quickly with
seated rest
�
Tobacco:�Denies�
Alcohol:�Denies�
Drug use:�Denies�
�
Lives with:�Alone, upon dc to go to daughter's home- offal worker can help
24-hour assistance available:�Yes
Number of floors:�3
# steps to enter:�9
# steps to second floor:stair glide
Driving:�yes
Occupation:�retired from [employer]
�
�
Allergies:�
Allergy/AdvReac Type Severity Reaction Status Date / Time
No Known Allergies Allergy Unverified 02/15/25 10:32
�
Review of Systems:�
Constitutional: (x) aNormal _fatigue
Eye: (x) Normal _
Ear/Nose/Throat: (x) Normal _
Respiratory: (x) Normal _
Cardiovascular: (x) abNormal _Afib with rvr
Gastrointestinal: (x) abNormal _abdominal pain, colostomy,
Genitourinary: (x) Normal _
Musculoskeletal: (x) abNormal _weakness
Integumentary: (x) Normal _
Neurologic: (x) Normal _
Psychiatric: (x) abNormal _depression,anxiety
Endocrine: (x) Normal _
Hematologic/Lymphatic: (x) Normal _
Allergic/Immunologic: (x) Normal _
�
Medications:�
Active Current Visit Medication List
Category Date Time Status
Acetaminophen [Tylenol] Med 03/09/25 20:27 Active
650 mg PO Q4HPRN PRN
Apixaban [Eliquis] Med 03/16/25 08:30 Active
5 mg PO BID
Atorvastatin [Lipitor] Med 03/11/25 18:00 Active
10 mg PO QPM
Carvedilol [Coreg] Med 03/25/25 10:00 Active
3.125 mg PO BID
Dextrose 50%-Water [Dextrose 50% Syringe] Med 02/27/25 23:00 Active
12.5 grams IV [id number] PRN
Famotidine [Pepcid] Med 03/27/25 08:00 Active
40 mg PO DAILY
Flush (0.9% Sodium Chloride) [Flush (Nss)] Med 02/27/25 23:00 Active
See Dose Instructions IV PER PROTOCOL
Furosemide [Lasix] Med 03/16/25 16:00 Active
40 mg PO BID@0800,1600
Glucagon [GlucaGen] Med 02/27/25 23:00 Active
1 mg IM PRN PRN
HydrALAZINE [Apresoline] Med 03/09/25 07:50 Active
10 mg IV Q4HPRN PRN
Insulin Aspart Corrective Mod [Novolog Flexpen-Moderate Med 03/15/25 11:30 Active
Resistance]
See Protocol SC AC
Insulin Glargine Lantus [Lantus] 8 units Med 03/17/25 12:00 Active
Subcutaneous Insulin Syringe [Syringe-Insulin] 0 unit
SC DAILY
Melatonin Med 03/13/25 22:00 Active
5 mg PO HS
Metoclopramide [Reglan] Med 03/27/25 11:30 Active
5 mg PO AC
Miconazole Nitrate [Desenex/Mitrazol/Zeasorb] Med 03/01/25 20:00 Active
See Dose Instructions TOPICAL BID
Ondansetron Injectable [Zofran] Med 03/26/25 12:06 Active
4 mg IV Q6HPRN PRN
Piperacillin/Tazo 3.375 Gram [Zosyn] Med 03/10/25 12:00 Active
3.375 gram in 50 ml IV Q6H
�
Vitals:�
Temp Pulse Resp BP Pulse Ox
97.7 F 95 24 123/60 95
03/28/25 15:37 03/28/25 14:00 03/28/25 14:00 03/28/25 14:00 03/28/25 10:06
Height 5 ft 7 in
Actual Weight 97.4 kg
Body Mass Index (BMI) 33.7
�
Physical Exam:�
General Appearance/Observation: Well-developed, well-nourished male in no apparent distress.�
Pain/Comfort Assessment: denies currently
Mood/Affect: Appropriate, pleasant
�
Integumentary/Operative Site:� abdominal drains, ostomy, midline wound vac
�� Pressure Ulcer Evaluation: absent over heels.�
Eyes: Conjunctiva/Lids: normal���� Pupils: pupils equal round and reactive to light and Accommodation�
Ears/Nose/Throat: oral mucosa moist,� throat clear.������������ Lips/Teeth/Gums: dry lips�
Neck: No muscle spasm or tenderness�
Cardiovascular: Heart: irregular, no murmur�
Pulses: dorsalis pedis 2+ bilaterally�
Respiratory: Respiratory Effort/Chest Expansion: normal������� Auscultation: Clear to auscultation bilaterally�
Gastrointestinal: abdomen not tender, obese, normal abdominal bowel sounds
Ostomy-left side of abdomen, wound vac�, drain-right
Genitourinary: No Hartman�
Extremities:�Edema: right more than left�Cyanosis: None�Trophic�changes: None, peeling skin- left inner thigh
�
Neurology Exam:
Orientation: Alert, Oriented to self, Time, Place�
Memory: Intact for immediate medical concerns
Comprehension: Intact
Two step command: Intact
Naming: Intact
Cranial Nerves:
�� CNII:�Pupillary light reflex: Intact����Visual Field: Intact, except for mild double vision on the right side pass midline
�� CN III, IV, : Extraocular muscles: Intact�
�� CN V:�Facial Sensation�at�Forehead: Intact,�Maxilla: Intact,�Mandible: Intact
�� CN VII:�Facial movement: Symmetric
�� CN VIII:�Hearing: Normal
�� CN IX/X:�Speech & swallow: Normal,�Position of Uvula: Midline
�� CN XI:�Shoulder shrug: Symmetric
�� CN XII:�Tongue protrusion: Midline
Sensory:
�� Light touch: Intact in bilateral upper and lower extremities
�� �
Reflexes:
�� Biceps: 2+ bilaterally
�� Brachioradialis: 2+ bilaterally
�� Triceps: 2+ bilaterally
�� Patellar: Absent bilaterally
�� Achilles: Absent bilaterally
�� Babinski: Down going bilaterally
�� Clonus: None
�� Darrin: Negative bilaterally�
Cerebellar: Dysmetria/Ataxia: None�
Musculoskeletal: Motor: (Manual muscle scale 0-5)�
Muscle SA EF WE EE FF FA HF KE DF EHL PF
Right� 4 5 5 5 4 4 5 5 5
Left 4 5 5 5 4 4 5 5 5
�
Tone: Normal in all extremities�
Range of Motion: Passively within normal limits in all extremities�, deferred legs
�
Lab Results:
Labs
WBC 8.7 10^3/uL (4.8-10.8) 03/26/25 10:04
RBC 3.09 10^6/uL (4.70-6.10) L 03/26/25 10:04
Hgb 8.9 g/dL (13.0-18.0) L 03/26/25 10:04
Hct 27.2 % (39.0-52.0) L 03/26/25 10:04
MCV 88.0 fL (80.0-94.0) 03/26/25 10:04
MCH 28.8 pg (27.0-31.0) 03/26/25 10:04
MCHC 32.7 g/dL (33.0-37.0) L 03/26/25 10:04
RDW 14.9 % (11.5-14.5) H 03/26/25 10:04
Plt Count 366 10^3/uL (130-400) 03/26/25 10:04
MPV 9.6 fL (7.4-10.4) 03/26/25 10:04
Abs Immat Gran (auto) 1.4 10^3/uL (0-0.05) H 03/04/25 04:09
Absolute Neuts (auto) 12.9 10^3/uL (1.4-6.5) H 03/04/25 04:09
Absolute Lymphs (auto) 0.9 10^3/uL (1.2-3.4) L 03/04/25 04:09
Absolute Monos (auto) 2.2 10^3/uL (0.1-0.6) H 03/04/25 04:09
Absolute Eos (auto) 0.0 10^3/uL (0-0.7) 03/04/25 04:09
Absolute Basos (auto) 0.1 10^3/uL (0-0.2) 03/04/25 04:09
CBC Comment Cancelled 03/04/25 10:45
Immature Gran % 7.8 % (0-0.5) H 03/04/25 04:09
Neutrophils % 73.9 % (42.2-75.2) 03/04/25 04:09
Lymphocytes % 5.0 % (20.5-51.1) L 03/04/25 04:09
Monocytes % 12.5 % (1.7-9.3) H 03/04/25 04:09
Eosinophils % 0.1 % (0-6) 03/04/25 04:09
Basophils % 0.7 % (0-2) 03/04/25 04:09
Nucleated RBC % 0.3 % (-) 03/04/25 04:09
Retic Count 1.2 % (0.4-2.8) 03/04/25 04:09
PT 19.9 Sec (11.4-14.6) H 02/27/25 16:52
INR 1.67 02/27/25 16:52
APTT 92.6 Sec (23.4-35.0) H 03/16/25 03:52
pH 7.43 (7.35-7.45) 03/12/25 11:08
pCO2 49 mmHg (35-48) H 03/12/25 11:08
pO2 88 mmHg (83-108) 03/12/25 11:08
HCO3 32.5 mmol/L (21-28) H 03/12/25 11:08
Base Excess 7.3 mmol/L 03/12/25 11:08
ABG O2 Sat (Measured) 98.0 % (94-98) 03/12/25 11:08
POC ABG O2 Sat (Calc) 99.0 % (94-98) H 02/27/25 20:19
VBG pH 7.46 (7.32-7.43) H 03/12/25 02:29
VBG pCO2 47 mmHg (35-48) 03/12/25 02:29
VBG pO2 74 mmHg (30-50) H 03/12/25 02:29
VBG HCO3 33.4 mmol/L (22-27) H 03/12/25 02:29
VBG O2 Sat (Jhonny) 97.9 % 03/12/25 02:29
VBG Base Excess 8.6 mmol/L (-4 to +4) 03/12/25 02:29
VBG O2 Therapy 03/12/25 02:29
O2 Delivery Level 1lnc 03/12/25 11:08
Sodium 134 mmol/L (135-145) L 03/26/25 10:03
Potassium 3.8 mmol/L (3.5-5.1) 03/26/25 10:03
Chloride 100 mmol/L (98-107) 03/26/25 10:03
Carbon Dioxide 30 mmol/L (22-30) 03/26/25 10:03
BUN 14 mg/dl (9-20) 03/26/25 10:03
Creatinine 0.8 mg/dL (0.7-1.3) 03/26/25 10:03
Estimated Creat Clear 89 ml/min 03/26/25 10:03
eGFR > 60.00 03/26/25 10:03
Glucose 173 mg/dl (70-99) H 03/26/25 10:03
Hemoglobin A1c 6.2 % (4.0-5.6) H 02/28/25 02:57
Lactic Acid 1.5 mmol/L (0.7-2.0) 03/01/25 03:18
Calcium 7.7 mg/dl (8.4-10.2) L 03/26/25 10:03
Phosphorus 3.0 mg/dl (2.5-4.5) 03/21/25 08:53
Magnesium 1.9 mg/dl (1.6-2.3) 03/26/25 10:03
Total Bilirubin 0.6 mg/dl (0.2-1.3) 03/21/25 08:53
Direct Bilirubin 1.9 mg/dl (0.0-0.4) H 03/02/25 03:45
AST 22 U/L (17-59) 03/21/25 08:53
ALT 21 U/L (0-50) 03/21/25 08:53
Alkaline Phosphatase 136 U/L (38-126) H 03/21/25 08:53
Szr-G-Khpeftjcmga Pept 482 pg/ml 03/07/25 03:14
Total Protein 5.8 g/dl (6.3-8.2) L 03/21/25 08:53
Albumin 2.2 g/dl (3.5-5.0) L 03/21/25 08:53
Triglycerides 76 mg/dl (10-149) 03/21/25 08:53
Lipase 54 U/L (23-300) 02/27/25 12:37
TSH 4.01 uIU/ml (0.47-4.68) 03/12/25 02:27
Random Vancomycin 15.2 ug/ml 03/10/25 03:11
Specimen Type Arterial 02/27/25 20:19
POC pH 7.35 (7.35-7.45) 02/27/25 20:19
POC Base Excess -2.8 mmol/L 02/27/25 20:19
POC pO2 140 mmHg (83-108) H 02/27/25 20:19
POC pCO2 41 mmHg (35-48) 02/27/25 20:19
POC HCO3 23 mmol/L (21-28) 02/27/25 20:19
POC Glucose 160 mg/dl (70-99) H 03/28/25 17:08
POC Glucose 162 mg/dl (70-99) H 02/27/25 20:19
POC Sodium 140 mmol/L (136-145) 02/27/25 20:19
POC Potassium 2.8 mmol/L (3.5-5.1) L 02/27/25 20:19
POC Ionized Calcium 1.49 mmol/L (1.15-1.33) H 02/27/25 20:19
POC Lactate 2.89 mmol/L (0.36-0.75) H 02/27/25 20:19
POC Hemoglobin Calc 12.7 02/27/25 20:19
POC Hematocrit 37 % PCV (42-52) L 02/27/25 20:19
POC Hemodilution Yes 02/27/25 20:19
Blood Type A POS 02/27/25 12:37
Antibody Screen Negative (Negative) 02/27/25 12:37
Crossmatch IS Only See Detail 02/27/25 12:37
�
Diagnostic Results:�as per HPI�
�CHEST:Small bilateral pleural effusions, right greater than left and accompanying bilateral lower lobe subsegmental atelectasis and/or pneumonia are again seen
ABDOMEN:Percutaneous anterior left upper quadrant drainage catheter is again seen with slight increase fluid identified contiguous with the anterior or rub the stomach, image 25 series 201 containing bubbles of air measuring approximately 4 cm,.
Slightly greater defined focal fluid is seen in the approximate level of the left paracolic gutter, image 50 series 201Coronal reformatted image 28 measuring approximately 8 x 3 cm, slightly greater in transverse dimension. In the region of the
right paracolic gutter along the cortical margin of the right lobe of the liver there is a slightly increased collection of fluid with bubbles of air crescentic in appearance, best appreciated on axial image 38 series 201 measuring at least 6.5 cm
and there is overall slightly increased adjacent right lateral subdiaphragmatic, perihepatic 'fluid collection' measuring at least 9 cm, image 19 series 201. Gallstones are again noted in the gallbladder. Solid organs of the abdomen are otherwise
stable. Calcific atherosclerotic changes of the abdominal aorta are seen without aneurysmal dilatation. Evaluation of intestinal tract markedly limited without oral contrast, without intestinal obstruction. Left lower quadrant diverting colostomy is
again seen. There is marked stranding throughout the mesentery.
PELVIS:Within the soft tissues of the left true pelvis there appears to be a small ill-defined volume of extraluminal fluid as compared to extraluminal air on prior study measuring greater than 2 cm, image 60 series 201 again in close proximity to a
thickened loop of small bowel and adjacent Monet pouch suture line. No focal intrinsic abnormality of the urinary bladder is seen. Approximate midline anterior true pelvic pigtail drainage catheter is again seen without significant accompanying
fluid.
SKELETON: No suspicious lesions.
IMPRESSION:
Left upper quadrant abdominal percutaneous drainage catheter with adjacent accompanying collection of fluid measuring approximately 4 cm with bubbles of air.
Midline true pelvic percutaneous drainage catheter anteriorly without discrete accompanying abnormal focal fluid collection.
Somewhat more well-defined fluid collections in the approximate locations of the paracolic gutters bilaterally, right side definitely with bubbles of air as well as slight increased perihepatic/subcapsular fluid in the right upper quadrant with
bubbles of air.
Small collection of fluid as compared to extraluminal air within the left lower quadrant/true pelvis in close proximity to a thickened loop of small bowel, as noted above.
Additional findings, as detailed above.
Assessment:
74 year old Male with (A-fib with RVR, CHF, POD 36 s/p reversal of end colostomy, POD 30 s/p ex lap, colon resection, end colostomy creation for anastomotic leak with abdominal abscesses on antibiotics with ADL and ambulatory dysfunction.
�
Plan�
PM&R�PT/OT to increase independence with ADLs, improve balance, coordination, endurance, strength, mobility, community reintegration, decreased burden of care on others and family education.�
�
Debility: PT/OT
Reversal of Colostomy with anastomosis leak: continue care per surgery and ID
Abdominal abscesses; s/p drainage. Cultures with E. coli, Citrobacter, Enterococcus, mixed anaerobes. Zosyn 3.375 gm IV q.6 hours. Ancipitate continued IV abx via PICC on d/c. IR drain to remain in place on d/c
Atrial fibrillation:� Eliquis 5mg bid and rate control medications.�
Bradycardia: Metoprolol held. coreg 3.125 mg bid, discussion of PPM if he develops tachy/bea syndrome����
HFimpEF: acute, improved. Lasix p.o. 40mg bid
- Preop eval: Echo LVEF 40-45% and only mild valve disease but date of echo unclear, perhaps 07/2023.
- Cath: No obstructive CAD but date of cath uncertain, perhaps 08/2023.
- Echocardiogram 03/03/2025 with LVEF of 65%; RV appeared dilated with low normal systolic function.
HTN: now on Coreg. Hydralazine 10 mg IV every 4 as needed
HLD: Statin�
Coronary artery disease�: Aspirin, statin, beta-rey�
DM II: Accu-Cheks, insulin sliding scale, Glargine 8 units, Reglan 5 mg p.o. AC
Bilateral lower extremity edema: Consider TEDS as able. Increased fluid will cause more force requirement to move lower extremities which requires more strength and increases fatigue.�
Anemia: Likely multifactorial.� Continue to monitor.�
Psych: Psychology consult.� Monitor mood, adjust medications as needed.�
Skin: monitor for pressure sores/rashes/lesions.�
Insomnia: Melatonin 5mg HS
Poor Appetite: Ensure bid
Pain: acetaminophen as needed.�
Bowel: Colace and Senna, PRN bisacodyl.�
Nausea: Zofran 4 mg IV every 6 as needed
Bladder: Time void, PVRs, PRN straight cath.�
GI Prophylaxis: Famotidine 40 mg daily
DVT Prophylaxis: mechanical and Eliquis
Pulmonary: Incentive spirometry�
Morbid obesity: Continue to automobile club travel counselor patient about diet adjustments to control obesity. Body habitus and increased force to move body and extremities causes further difficulty with functional tasks.�
Safety: Continue to reinforce assistance with all transfers.�
Code Status:� DNR�
Dispo�(date/plan/equipment needs): Home with family care.� Social history reviewed.�
Functional and Medical Goals:�Modified Independent with ADL�s, ambulation, transfers�
Discharge Destination:�Patient would benefit from acute inpatient rehabilitation. However, currently not ideal candidate for therapy yet due to limitations with elevated heart rate up to 189 with functional mobility in room with rolling walker and
at conversational level with respiration from mid-20's up to low 30s and HR of 103-106 sitting in recliner. May be better suited for acute inpatient of 3 hours daily once heart rate is under better control at rest and mostly with activities.
Attending Statement:
I saw and examined the patient today. Reviewed care plan with patient, therapy, nursing, and physician occupational therapy assistant. I agree with the above subjective and physical exam, and plan as documented by SHEKHAR Atwood with adjustments made as necessary. A
total of 60minutes were spent with the patient preparing for the evaluation, obtaining history, performing examination and evaluation, counseling, data review, case management, care coordination, sales order coordinator, and EMR documentation.
�
�
Thank you for allowing me to care for your patient. Please contact me with any questions or concerns.
[2025-03-28] MEDS: LIPITOR 10 MG PO (17:09)
[2025-03-28 17:19] LABS: Glucose - Point of Care 160 mg/dl (70-99)
[2025-03-28] MEDS: MELATONIN 5 MG PO (20:08)
[2025-03-28 22:01] LABS: Glucose - Point of Care 185 mg/dl (70-99)
--- NOTE | 2025-03-28 22:20 | PTCARENOTE ---
pt aaox3, able to make needs known. Pt assisted from chair to bed with assistx2 and RW. afib/aflutter on monitor. trace anasarca. diminished lung sounds with crackles anteriorly. TRAMMELL, CPAP HS, on RA during the day. SaO2 95%. L colostomy bag burped.
R SUSAN drain flushed with 10ml NSS. Wound vac dressing intact. Remains on IV zosyn through R PICC line. HS accucheck 185. Pt resting comfortably in bed at this time. VSS. Care ongoing.
[2025-03-29] VITALS (12 sets, daily range): BP systolic 96–142; BP diastolic 35–86; BMI 33.3
[2025-03-29] MEDS: ZOSYN 50 IV ×4 (01:01→17:32)
[2025-03-29 06:30] LABS: Hematocrit 27.2 % (39.0-52.0); Hemoglobin 8.6 g/dL (13.0-18.0); Mean Corp Hgb Conc. 31.6 g/dL (33.0-37.0); Mean Corpuscular Volume 91.0 fL (80.0-94.0); Platelet Count 452 10^3/uL (130-400); Red Cell Dist. Width 14.9 % (11.5-14.5)
[2025-03-29 06:41] LABS: Blood Urea Nitrogen 14 mg/dl (9-20); Calcium 7.9 mg/dl (8.4-10.2); Carbon Dioxide 34 mmol/L (22-30); Chloride 100 mmol/L (98-107); Estimated Creatinine Clearance 70 ml/min; Glucose 119 mg/dl (70-99); Potassium 3.2 mmol/L (3.5-5.1); Sodium 137 mmol/L (135-145); eGFR > 60.00
[2025-03-29 07:40] LABS: Glucose - Point of Care 132 mg/dl (70-99)
[2025-03-29] MEDS: NOVOLOG FLEXPEN-MODERATE RESISTANCE SC ×2 (08:09→17:23)
[2025-03-29] MEDS: ELIQUIS 5 MG PO ×2 (08:40→20:15)
[2025-03-29] MEDS: LANTUS 0.08 UNITS SC (08:40)
[2025-03-29] MEDS: PEPCID 40 MG PO (08:40)
[2025-03-29] MEDS: REGLAN 5 MG PO ×3 (08:40→17:32)
[2025-03-29] MEDS: COREG 3.125 MG PO (08:40)
[2025-03-29] MEDS: LASIX 40 MG PO (08:40)
[2025-03-29] MEDS: DESENEX/MITRAZOL/ZEASORB 1 APPLIC TOPICAL ×2 (08:40→20:16)
--- NOTE | 2025-03-29 10:21 | PN.DE.MGMTRT ---
Insulin Management
- -
03/29/2025: Diabetes Management Follow up
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
colostomy reversal for repeated perforated diverticulitis in 11/2024, found to have anastomotic leak CT imaging with pneumoperitoneum (02/27) requiring ex lap with bowel resection and end colostomy creation on 02/27. Prior to admission was taking no
diabetes medications. On admission A1C 6.2%, Cr 1.1, eGFR >60. today .9, > 60.
Pt extubated 03/09. He is awake, alert, oriented, sitting up in bed, doing well with pureed diet, able to discuss diabetes care plan. Daughter at bedside.
POD # 37 s/p reversal of end colostomy POD # 31 s/p ex lap, colon resection, end colostomy creation for anastomotic leak.
Diet was advanced to 2200 ernie on 03/22, appetite continues to improve. Completed TPN. Lantus started on 03/17
03/28 premeal Glucose range 112 to 185.
03/29 Fasting glucose 119 today.
Will make no change to current regimen: Lantus 8 units in AM and moderate corrective insulin AC.
Discussed with Nurse. Will cont to follow.
Diabetes History
- -
Pre-Admission Diabetes Regimen
03/29/25
05:38
Creatinine 1.0
Lab Results
Hemoglobin A1c 6.2 % (4.0-5.6) H 02/28/25 02:57
Insulin Pump Settings
IP Diabetes Regimen
03/28/25 03/28/25 03/28/25
12:29 17:08 21:49
Glucose
POC Glucose 179 H 160 H 185 H
03/29/25 03/29/25
05:38 07:28
Glucose 119 H
POC Glucose 132 H
Patient Education
--- NOTE | 2025-03-29 11:29 | W.PN.CD ---
Today's Communication / Plan
-
Increase Coreg for more ambulatory AFib HR control
No objection to rehab transfer
Impression / Plan
-
74-year-old man with (suspected permanent) atrial fibrillation (on Eliquis), HFmrEF (last echo reportedly 45% EF), htn, h/o PE/DVT, BPH, GERD, h/o perforated diverticulitis and previous end colostomy with reversal who presented to [facility] ED after
discharge on 02/25 following elective colostomy reversal for repeated perforated diverticulitis in 11/2024, found to have anastomotic leak CT imaging with pneumoperitoneum (02/27) requiring ex lap with bowel resection and end colostomy creation. He
remains in ICU in persistent Afib with RVR.
Acute abdomen
- Postoperative anastomotic leak status post exploratory laparotomy, colon resection and creation of end colostomy:
- improved, pressors off 03/07
- s/p IR drain to yuliet-hepatic abscess 03/06 and another drain placed on 03/12/25
- ATBs
- Treatment as per ripper operator and general surgery
Bradycardia with pauses
- improved
- I feel comfortable increasing Coreg
Suspected permanent Afib
- As above, he had severe bradycardia with long pauses in the setting of Precedex, IV amiodarone, and beta-rey
- Ambulatory HR elevated => OK to increase Coreg, I ordered
- Monitor need for PPM
- continue eliquis 5mg bid
HFimpEF: acute, improved
- Preop eval: Echo LVEF 40-45% and only mild valve disease but date of echo unclear, perhaps 07/2023.
- Cath: No obstructive CAD but date of cath uncertain, perhaps 08/2023.
- Echocardiogram 03/03/2025 with LVEF of 65%; RV appeared dilated with low normal systolic function.
- Move to one time a day diuretic
HTN
-amlodipine and lisinopril stopped
-now on single agent coreg
Subjective:
No CP, dyspna, or palps.
No review: AFib, good rate control last 24 hrs, no severe bradys
Physical Exam
Vital Signs/Labs
Vital Signs
Temp Pulse Resp BP Pulse Ox
97.7 F 90 22 130/72 95
03/29/25 07:37 03/29/25 06:00 03/29/25 06:00 03/29/25 06:00 03/29/25 08:09
03/28/25 03/29/25 03/30/25
06:59 06:59 06:59
Actual Weight 97.4 kg 96.4 kg
03/29/25 05:38
03/29/25 05:38
PT 19.9 Sec (11.4-14.6) H 02/27/25 16:52
INR 1.67 02/27/25 16:52
APTT 92.6 Sec (23.4-35.0) H 03/16/25 03:52
Magnesium 1.9 mg/dl (1.6-2.3) 03/26/25 10:03
Triglycerides 76 mg/dl (10-149) 03/21/25 08:53
TSH 4.01 uIU/ml (0.47-4.68) 03/12/25 02:27
03/02/25 03/04/25 03/05/25
03:45 04:09 04:54
Var-C-Nkxvmudsgff Pept 3370 [id number] 1980
03/07/25
03:14
Mkr-W-Ampfjcsyyqp Pept 482
Physical Exam
Constitutional: No acute distress
EENT: Anicteric
Cardiovascular: Rhythm/rate is irregular
Respiratory: Respiratory effort normal and Lungs clear to auscul.
GI: Soft and Distention absent
Neuro/Psych: AO x 3
Data Reviewed
-
Date of Service: March 29, 2025
--- NOTE | 2025-03-29 11:34 | W.PN.ID1 ---
Date of Service
Date of Service: March 29, 2025
Today's Communication
Continue antibiotics.
Assessment / Plan
74-year-old male with a significant PMHx of colostomy (08/2024) for perforated diverticulitis with elective reversal (02/21/25). On 02/27 he presented to the hospital with nausea and vomiting and was found to have free air in the abdomen and
underwent ex lap, colon resection, end colostomy creation for anastomotic leak.
#Anastomotic leak / perforated viscus
#Abdominal abscesses; s/p drainage
- Cultures with E. coli, Citrobacter, Enterococcus, mixed anaerobes
#Leukocytosis
#Bacteremia with bacillus species
- contamination
Recommendations:
White count remains normal today.
Intra-abdominal cultures with E. coli, Citrobacter, Enterococcus; all isolate susceptible to Zosyn.
Continue with Zosyn 3.375 gm IV q.6 hours (d#30)
Would anticipate at least another 6 days (or so) of antibiotics. (Given severity of infection, duration not delineated)
Follow WBC and temp curve. Prior leukocytosis improved/resolved.
Follow drain output.
PT.
Continue with supportive measures.
����������������������������������������������������������
Chief Complaint
-: Leukocytosis and Other (Intra-abdominal abscesses)
Subjective / Review of Systems
Review of Systems: No Fever, No Chills and No Abdominal Pain
Vital Signs / Physical Exam
Vital Signs
Vital Signs
Temp Pulse Resp BP Pulse Ox
98.0 F 90 22 130/72 95
03/29/25 11:29 03/29/25 06:00 03/29/25 06:00 03/29/25 06:00 03/29/25 08:09
Physical Exam
Constitutional: No Acute Distress, Comfortable, Chronically Ill, Non-toxic and Obese
Eyes: No Conjunctival Hemorrhage and Sclera Anicteric
Cardiovascular: S1/S2; Negative S3/S4
Pulmonary: Clear and Non Labored
Gastrointestinal: Soft and Other (Ostomy bag with brown stool. Right SUSAN with scant serous drainage. No significant purulence)
Extremities: Edema
Skin: Warm
Neurological: AO x 3
Psychological: Calm
Objective Data
Lab Data
Lab Results
03/29/25 05:38
03/29/25 05:38
PT 19.9 Sec (11.4-14.6) H 02/27/25 16:52
INR 1.67 02/27/25 16:52
APTT 92.6 Sec (23.4-35.0) H 03/16/25 03:52
Estimated Creat Clear 70 ml/min 03/29/25 05:38
Lactic Acid 1.5 mmol/L (0.7-2.0) 03/01/25 03:18
Total Bilirubin 0.6 mg/dl (0.2-1.3) 03/21/25 08:53
AST 22 U/L (17-59) 03/21/25 08:53
ALT 21 U/L (0-50) 03/21/25 08:53
Alkaline Phosphatase 136 U/L (38-126) H 03/21/25 08:53
Most recent labs reviewed.
Micro Results:
03/05/25 17:11 Anaerobic Culture - Final
Abdomen
03/05/25 11:35 Blood Culture - Final
Blood/Venous No Growth - Final Report
03/06/25 10:50 Wound Culture - Final
Abdomen Escherichia coli
Citrobacter youngae
Enterococcus faecalis
Gram Stain - Final
03/05/25 17:11 Wound Culture - Final
Abdomen Escherichia coli
Citrobacter youngae
Enterococcus faecalis
Gram Stain - Final
03/01/25 20:44 Blood Culture - Final
Blood/Venous Bacillus species,not anthracis
Gram Stain - Final
03/01/25 19:46 Blood Culture - Final
Blood/Venous No Growth - Final Report
Wound/abscess/other Cult Final 03/05/2025
Few Escherichia coli
Few Citrobacter youngae
Moderate Enterococcus faecalis
Organism 1 Escherichia coli
Organism 2 Citrobacter youngae
Organism 3 Enterococcus faecalis
E.COLI C. YOUNGAE ENTFCL
M.I.C. RX M.I.C. RX M.I.C. RX
--------- --- --------- --- --------- ---
Amoxicillin/Potas. Clavulanate <=8/4 S >16/8 R
Ampicillin <=8 S >16 R <=2 S
Ampicillin/Sulbactam <=4/2 S >16/8 R
Aztreonam <=4 S >16 R
Cefazolin <=2 S >16 R
Cefepime <=2 S
Ceftazidime >16 R
Ceftriaxone >2 R
Ertapenem <=0.5 S <=0.5 S
Ciprofloxacin <=0.25 S <=0.25 S
Gentamicin <=2 S <=2 S
Gentamicin Synergy Screen >500 R
Meropenem <=1 S <=1 S
Piperacillin/Tazobactam <=8 S <=8 S
Tetracycline <=4 S <=4 S
Tobramycin <=2 S <=2 S
Trimethoprim/Sulfamethoxazole <=2/38 S <=2/38 S
Vancomycin 2 S
Imaging:
03/24/2025 CT abdomen/pelvis: Left upper quadrant abdominal percutaneous drainage catheter with adjacent accompanying collection of fluid measuring approximately 4 cm with bubbles of air. Midline true pelvic percutaneous drainage catheter anteriorly
without discrete accompanying abnormal focal fluid collection. Somewhat more well-defined fluid collections in the approximate locations of the paracolic gutters bilaterally, right side definitely with bubbles of air as well as slight increased
perihepatic/subcapsular fluid in the right upper quadrant with bubbles of air. Small collection of fluid as compared to extraluminal air within the left lower quadrant/true pelvis in close proximity to a thickened loop of small bowel, as noted above.
03/18/2025 CT abdomen/pelvis: Interval development of predominantly gas containing extraluminal collection within the left lower quadrant which is in close proximity to both a thickened small bowel loop and the Amish pouch suture line. Findings
are nonspecific but worrisome for possible leak or focal small bowel perforation. Somewhat limited evaluation in the absence of oral contrast. Significant interval improvement of fluid collection/abscess within the left upper quadrant, right
perihepatic, and anterior right pelvis. See above. Small bilateral pleural effusions with adjacent atelectasis within both posterior lower lobes.
03/11/2025 CT abdomen/pelvis: again seen are multiple intra-abdominal fluid collections. There has been interval placement of percutaneous drainage catheters with improvement in size of both collections although significant residual fluid
collections remain, particularly within the left upper quadrant.
03/05/2025: CT Chest/abd/pel W Iv Contrast: Postoperative abdomen with developing intra-abdominal abscesses in the left upper quadrant and right upper quadrant of the abdomen, and smaller probable developing abscesses in the upper abdomen inferior
to the distal stomach and in the anterior pelvis deep to the anterior pelvic wall.
Small bilateral pleural effusions and bilateral lower lobe compressive atelectasis.
02/27/2025: CT Abd/pel W Iv And Oral Contrast: 1. Postoperative leak at the left colonic anastomosis, with extraluminal contrast. Large degree of pneumoperitoneum.2. Trace bilateral pleural effusions with associated probable atelectasis. Cannot rule
out superimposed left lower lobe pneumonia.
--- NOTE | 2025-03-29 11:47 | W.PN.GS2 ---
Today's Communication / Plan
-
-- No changes from surgical perspective
-- Nearing readiness for discharge hopefully tomorrow awaiting improved HR control, appreciate Cardiology assistance
Assessment / Plan
-
Assessment: 74 yo M POD 37 s/p reversal of end colostomy POD 31 s/p ex lap, colon resection, end colostomy creation for anastomotic leak
Afebrile. VSS
good ostomy function, tolerating diet, nausea improved with po AC reglan
Wound vac with peel and place dressing to midline placed 03/21, changed dressing on 03/25 with good granulation of tissues noted during change
CT on 03/24 with improved collections; left sided drains removed and right drain repositioned on 03/24 by IR
polymicrobial on cultures - ID following
Plan:
-- Reg diet (carb control)
ensure BID
-- Continue reglan 5mg AC
-- Abx: per ID, recs appreciated. anticipate another week of IV zosyn via PICC
-- continue PT/OT, anticipate acute rehab vs SNF on d/c. Physiatry consult pending.
-- midline wound vac, q5-7 day changes with peel and place dressing. wound care following
-- Medical management as per Hospitalist
-- Appreciate cardiology, now on coreg
Nearing readiness for discharge hopefully tomorrow awaiting improved HR control, appreciate Cardiology assistance
--Continue Wound vac on d/c
--Ancipitate continued IV abx via PICC on dc, ID following will defer to ID team regarding duration
--IR drain to remain in place on d/c
--Our office will arrange OP follow up with surgeon and OP CT imaging in approximately 1 week
Subjective Data
-
Date of Service: March 29, 2025
No complaints.
Objective Data
-
Intake and Output
03/28/25 03/29/25 03/30/25
06:59 06:59 06:59
Intake Total 240 / 240
Output Total 2825 / 2825 1310 / 1310
Balance -2585 / -2585 -1310 / -1310
Intake:
Oral fluids 240 / 240
Output:
Liquid stool amount 150 / 150
Colostomy 150 / 150
Drain Output (Total)
Right Lower Celso-Loyd B
Urine, Voided 2675 / 2675 1300 / 1300
Vital Signs
Temp Pulse Resp BP Pulse Ox
98.0 F 90 22 130/72 95
03/29/25 11:29 03/29/25 06:00 03/29/25 06:00 03/29/25 06:00 03/29/25 08:09
Lab Results
03/29/25 05:38
03/29/25 05:38
Calcium 7.9 mg/dl (8.4-10.2) L 03/29/25 05:38
Phosphorus 3.0 mg/dl (2.5-4.5) 03/21/25 08:53
Magnesium 1.9 mg/dl (1.6-2.3) 03/26/25 10:03
Total Bilirubin 0.6 mg/dl (0.2-1.3) 03/21/25 08:53
Direct Bilirubin 1.9 mg/dl (0.0-0.4) H 03/02/25 03:45
AST 22 U/L (17-59) 03/21/25 08:53
ALT 21 U/L (0-50) 03/21/25 08:53
Alkaline Phosphatase 136 U/L (38-126) H 03/21/25 08:53
Total Protein 5.8 g/dl (6.3-8.2) L 03/21/25 08:53
Albumin 2.2 g/dl (3.5-5.0) L 03/21/25 08:53
Physical Exam
-
Gen: NAD
Abd: soft, NT/ND, drain seropurulent
Stoma with soft stool/flatus, PPV
Wound vac intact
Patient has a hoffman catheter: No
Patient has a central line: Yes
[2025-03-29 12:38] LABS: Glucose - Point of Care 186 mg/dl (70-99)
[2025-03-29] MEDS: NOVOLOG FLEXPEN-MODERATE RESISTANCE 1 UNITS SC (13:02)
--- NOTE | 2025-03-29 14:11 | PTCARENOTE ---
Pt's assessment as documented. Aox3. Afib on tele monitor. Wound vac in place and dressings C/D/I. Medications administered as ordered, see MAR. Multiple visitors in and out throughout the day, pt in good spirits. Ringing appropriately, call velazquez
within reach.
[2025-03-29] MEDS: KCL 40 MEQ PO ×2 (15:26→20:15)
--- NOTE | 2025-03-29 16:43 | CM ---
F/U: SHAQUILLE Ruggiero confirmed with Hospitalist that patient is ready. [facility] liaison with Dr. Anna reviewed his chart and stated that his elevated HR is a concern so would want that below 120 for HR when participating in PT/OT. SHAQUILLE Ruggiero linked
Cardiology in to see what could be the plan and so patient's Coreg will be increase and SHAQUILLE Ruggiero asked PT/OT to evaluate tomorrow. Hopefully patient does well tomorrow morning and [facility] may take patient tomorrow. SHAQUILLE Ruggiero updated the daughter Tammy.
There are other Acute rehabs and SNF available. PLAN: Acute Rehab vs. SNF.
[2025-03-29 17:09] LABS: Glucose - Point of Care 134 mg/dl (70-99)
[2025-03-29] MEDS: LIPITOR 10 MG PO (17:32)
[2025-03-29] MEDS: MELATONIN 5 MG PO (20:15)
[2025-03-29] MEDS: COREG 12.5 MG PO (20:16)
[2025-03-29 22:55] LABS: Glucose - Point of Care 133 mg/dl (70-99)
--- NOTE | 2025-03-29 22:55 | PTCARENOTE ---
Remains on IV zosyn and KVO through R PICC. PO K given for K 3.2 this am. Will recheck BMP in am. BP tolerating increased coreg dose. Remains afib, rate controlled. R SUSAN drain flushed with 10ml NSS, emptied 20ml purulent drainage. Wearing home CPAP
HS. VSS. Care ongoing.
[2025-03-30] VITALS (12 sets, daily range): BP systolic 91–123; BP diastolic 42–87; PULSE 72–73; BMI 32.5
[2025-03-30] MEDS: ZOSYN 50 IV ×3 (00:49→12:29)
--- NOTE | 2025-03-30 03:45 | DOWNTIME ---
There was a [employer] Client Filer Finish Downtime on 03/30/2025 from 0100 to 03/30/2025 at 0215. Downtime documentation of patient's care, including medication administrations, has been reconciled in the electronic record per guidelines. Refer to the
patient's paper chart under the miscellaneous tab to see printed paper medication records and downtime forms.
[2025-03-30 06:30] LABS: Blood Urea Nitrogen 17 mg/dl (9-20); Calcium 8.1 mg/dl (8.4-10.2); Carbon Dioxide 33 mmol/L (22-30); Chloride 102 mmol/L (98-107); Estimated Creatinine Clearance 76 ml/min; Glucose 137 mg/dl (70-99); Potassium 4.2 mmol/L (3.5-5.1); Sodium 137 mmol/L (135-145); eGFR > 60.00
[2025-03-30 08:13] LABS: Glucose - Point of Care 117 mg/dl (70-99)
[2025-03-30] MEDS: NOVOLOG FLEXPEN-MODERATE RESISTANCE SC (08:18)
[2025-03-30] MEDS: LANTUS 0.08 UNITS SC (08:29)
[2025-03-30] MEDS: ELIQUIS 5 MG PO (08:29)
[2025-03-30] MEDS: REGLAN 5 MG PO ×2 (08:29→12:28)
[2025-03-30] MEDS: LASIX 40 MG PO (08:29)
[2025-03-30] MEDS: COREG 12.5 MG PO (08:29)
[2025-03-30] MEDS: PEPCID 40 MG PO (08:29)
[2025-03-30] MEDS: DESENEX/MITRAZOL/ZEASORB 1 APPLIC TOPICAL (08:30)
--- NOTE | 2025-03-30 09:51 | PN.DE.MGMTRT ---
Insulin Management
- -
03/30/2025: Diabetes Management Follow up
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
colostomy reversal for repeated perforated diverticulitis in 11/2024, found to have anastomotic leak CT imaging with pneumoperitoneum (02/27) requiring ex lap with bowel resection and end colostomy creation on 02/27. Prior to admission was taking no
diabetes medications. On admission A1C 6.2%, Cr 1.1, eGFR >60. today .9, > 60.
Pt extubated 03/09. He is awake, alert, oriented, sitting up in bed, doing well with pureed diet, able to discuss diabetes care plan. Daughter at bedside.
POD # 38 s/p reversal of end colostomy POD # 32 s/p ex lap, colon resection, end colostomy creation for anastomotic leak.
Diet was advanced to 2200 ernie on 03/22, appetite continues to improve. Completed TPN. Lantus started on 03/17
03/29 premeal Glucose range 119 to 186.
03/30 Fasting glucose 117 today.
Will make no change to current regimen: Lantus 8 units in AM and moderate corrective insulin AC.
Discussed with Nurse. Will cont to follow.
Diabetes History
- -
Pre-Admission Diabetes Regimen
03/30/25
05:47
Creatinine 0.9
Lab Results
Hemoglobin A1c 6.2 % (4.0-5.6) H 02/28/25 02:57
Insulin Pump Settings
IP Diabetes Regimen
03/29/25 03/29/25 03/29/25
12:26 16:57 22:43
Glucose
POC Glucose 186 H 134 H 133 H
03/30/25 03/30/25
05:47 08:01
Glucose 137 H
POC Glucose 117 H
Meal type: Dinner
Meal type: Breakfast
Amount consumed: 100%
Amount consumed: 100%
Patient Education
--- NOTE | 2025-03-30 11:00 | PTCARENOTE ---
Assumed care of patient at beginning of this shift from previous RN. Wound vac in place. Colostomy with soft brown stool, emptied and 'burped' as needed. SUSAN draining white; flushed on previous shift. Patient min assist OOB to chair using RW; HR
90s-119, RR 20s. CHG bath completed. VAT RN changed PICC dressing and caps. Patient also worked with PT/OT; see note. See worklist for full assessment and vital signs.
--- NOTE | 2025-03-30 11:53 | W.PN.GS2 ---
Today's Communication / Plan
-
Monitor for exertional tachycardia
Assessment / Plan
-
Assessment: 74 yo M POD 38 s/p reversal of end colostomy POD 32 s/p ex lap, colon resection, end colostomy creation for anastomotic leak
Afebrile. VSS
good ostomy function, tolerating diet, nausea improved with po AC reglan
Wound vac with peel and place dressing to midline placed 03/21, changed dressing on 03/25 with good granulation of tissues noted during change - next change 04/01
CT on 03/24 with improved collections; left sided drains removed and right drain repositioned on 03/24 by IR
polymicrobial on cultures - ID following
Plan:
-- Reg diet (carb control)
ensure BID
-- Continue reglan 5mg AC
-- Abx: per ID, recs appreciated. anticipate another week of IV zosyn via PICC
-- continue PT/OT, anticipate acute rehab vs SNF on d/c.
-- Physiatry consult - appreciate recs - exertional tachycardia is barrier to DC, Cardiology has increased coreg
-- midline wound vac, q5-7 day changes with peel and place dressing. wound care following
-- Medical management as per Hospitalist
-- Appreciate cardiology, now on coreg
Nearing readiness for discharge hopefully tomorrow awaiting improved HR control, appreciate Cardiology assistance
--Continue Wound vac on d/c
--Ancipitate continued IV abx via PICC on dc, ID following will defer to ID team regarding duration
--IR drain to remain in place on d/c
--Our office will arrange OP follow up with surgeon and OP CT imaging in approximately 1 week
Subjective Data
-
Date of Service: March 30, 2025
AFVSS, ayesha PO, nausea resolved
Objective Data
-
Intake and Output
03/29/25 03/30/25 03/31/25
06:59 06:59 06:59
Intake Total
Output Total 1310 / 1310 1300 / 1300 150 / 150
Balance -1310 / -1310 -1290 / -1290 -150 / -150
Intake:
Amount instilled into Drain (
Total)
Right Lower Celso-Loyd B
Output:
Drain Output (Total)
Right Lower Celso-Loyd B
Urine, Voided 1300 / 1300 1300 / 1300 150 / 150
Other:
How many times incontinent 1
SMALL amount urine
Vital Signs
Temp Pulse Resp BP Pulse Ox
97.6 F 89 28 99/54 95
03/30/25 11:19 03/30/25 11:03 03/30/25 11:03 03/30/25 11:03 03/30/25 11:34
Lab Results
03/29/25 05:38
03/30/25 05:47
Calcium 8.1 mg/dl (8.4-10.2) L 03/30/25 05:47
Phosphorus 3.0 mg/dl (2.5-4.5) 03/21/25 08:53
Magnesium 1.9 mg/dl (1.6-2.3) 03/26/25 10:03
Total Bilirubin 0.6 mg/dl (0.2-1.3) 03/21/25 08:53
Direct Bilirubin 1.9 mg/dl (0.0-0.4) H 03/02/25 03:45
AST 22 U/L (17-59) 03/21/25 08:53
ALT 21 U/L (0-50) 03/21/25 08:53
Alkaline Phosphatase 136 U/L (38-126) H 03/21/25 08:53
Total Protein 5.8 g/dl (6.3-8.2) L 03/21/25 08:53
Albumin 2.2 g/dl (3.5-5.0) L 03/21/25 08:53
Physical Exam
-
Gen: NAD
Abd: soft, vac in place, stoma with brown stool and gas, drain with light seropurulent output
Patient has a hoffman catheter: No
Patient has a central line: Yes
--- NOTE | 2025-03-30 11:57 | W.PN.CD ---
Today's Communication / Plan
-
Stop Coreg, move to home dose Toprol
Monitor BP as recovers suspects meds will need to be added back, not yet
Impression / Plan
-
74-year-old man with (suspected permanent) atrial fibrillation (on Eliquis), HFmrEF (last echo reportedly 45% EF), htn, h/o PE/DVT, BPH, GERD, h/o perforated diverticulitis and previous end colostomy with reversal who presented to [facility] ED after
discharge on 02/25 following elective colostomy reversal for repeated perforated diverticulitis in 11/2024, found to have anastomotic leak CT imaging with pneumoperitoneum (02/27) requiring ex lap with bowel resection and end colostomy creation. He
remains in ICU in persistent Afib with RVR.
Acute abdomen
- Postoperative anastomotic leak status post exploratory laparotomy, colon resection and creation of end colostomy:
- improved, pressors off 03/07
- s/p IR drain to yuliet-hepatic abscess 03/06 and another drain placed on 03/12/25
- ATBs
- Treatment as per instructional resource teacher and general surgery
Bradycardia with pauses
- improved
- I feel comfortable increasing Coreg done yesterday 03/30/2025
- I will move to his long standing home regimen Toprol 50 mg AM and 25 mg PM
Suspected permanent Afib
- As above, he had severe bradycardia with long pauses in the setting of Precedex, IV amiodarone, and beta-rey
- Ambulatory HR elevated => OK to increase Coreg, I ordered
- Monitor need for PPM
- continue eliquis 5mg bid
HFimpEF: acute, improved
- Preop eval: Echo LVEF 40-45% and only mild valve disease but date of echo unclear, perhaps 07/2023.
- Cath: No obstructive CAD but date of cath uncertain, perhaps 08/2023.
- Echocardiogram 03/03/2025 with LVEF of 65%; RV appeared dilated with low normal systolic function.
- Now on daily diuretic.
HTN
-amlodipine and lisinopril stopped
-just on Beta rey
- Monitor BP as
Subjective:
No CP, dyspna, or palps.
No review: AFib, good rate control last 24 hrs, no severe bradys
Physical Exam
Vital Signs/Labs
Vital Signs
Temp Pulse Resp BP Pulse Ox
97.6 F 89 28 99/54 95
03/30/25 11:19 03/30/25 11:03 03/30/25 11:03 03/30/25 11:03 03/30/25 11:34
03/29/25 03/30/25 03/31/25
06:59 06:59 06:59
Actual Weight 96.4 kg 94 kg
03/29/25 05:38
03/30/25 05:47
PT 19.9 Sec (11.4-14.6) H 02/27/25 16:52
INR 1.67 02/27/25 16:52
APTT 92.6 Sec (23.4-35.0) H 03/16/25 03:52
Magnesium 1.9 mg/dl (1.6-2.3) 03/26/25 10:03
Triglycerides 76 mg/dl (10-149) 03/21/25 08:53
TSH 4.01 uIU/ml (0.47-4.68) 03/12/25 02:27
03/02/25 03/04/25 03/05/25
03:45 04:09 04:54
Dno-S-Tlohjcwjksb Pept [id number] 1980
03/07/25
03:14
Iib-P-Eyepittrxga Pept 482
Physical Exam
Constitutional: No acute distress
EENT: Anicteric
Cardiovascular: Pedal edema is absent and Rhythm/rate is irregular
Respiratory: Respiratory effort normal and Lungs clear to auscul.
GI: Soft and Distention absent
Data Reviewed
-
Date of Service: March 30, 2025
[2025-03-30 12:19] LABS: Glucose - Point of Care 204 mg/dl (70-99)
[2025-03-30] MEDS: NOVOLOG FLEXPEN-MODERATE RESISTANCE 3 UNITS SC (12:29)
--- NOTE | 2025-03-30 13:48 | W.PN.ID1 ---
Date of Service
Date of Service: March 30, 2025
Today's Communication
Continue abx.
Assessment / Plan
74-year-old male with a significant PMHx of colostomy (08/2024) for perforated diverticulitis with elective reversal (02/21/25). On 02/27 he presented to the hospital with nausea and vomiting and was found to have free air in the abdomen and
underwent ex lap, colon resection, end colostomy creation for anastomotic leak.
#Anastomotic leak / perforated viscus
#Abdominal abscesses; s/p drainage
- Cultures with E. coli, Citrobacter, Enterococcus, mixed anaerobes
#Leukocytosis
#Bacteremia with bacillus species
- contamination
Recommendations:
White count remains normal.
Prior intra-abdominal cultures with E. coli, Citrobacter, Enterococcus; all isolate susceptible to Zosyn.
Continue with Zosyn 3.375 gm IV q.6 hours (d#31)
Would anticipate at least another 5 days of antibiotics.
Follow WBC and temp curve. Prior leukocytosis improved/resolved.
Follow drain output.
PT.
Continue with supportive measures.
����������������������������������������������������������
Chief Complaint
-: Leukocytosis and Other (Intra-abdominal abscesses)
Subjective / Review of Systems
Review of Systems: No Fever, No Chills and No Abdominal Pain
Vital Signs / Physical Exam
Vital Signs
Vital Signs
Temp Pulse Resp BP Pulse Ox
97.6 F 89 28 99/54 95
03/30/25 11:19 03/30/25 11:03 03/30/25 11:03 03/30/25 11:03 03/30/25 11:34
Physical Exam
Constitutional: No Acute Distress, Comfortable, Chronically Ill, Non-toxic and Obese
Eyes: Sclera Anicteric
Cardiovascular: Regular Rate and S1/S2; Negative S3/S4
Pulmonary: Clear and Non Labored
Gastrointestinal: Soft, Normal Bowel Sounds and Other (Ostomy bag with brown stool. Right SUSAN with scant serous drainage. No purulence)
Extremities: Edema; Negative Erythema or Splinter Hemorrhage
Skin: Warm
Neurological: Awake and Alert
Psychological: Calm
Objective Data
Lab Data
Lab Results
03/29/25 05:38
03/30/25 05:47
PT 19.9 Sec (11.4-14.6) H 02/27/25 16:52
INR 1.67 02/27/25 16:52
APTT 92.6 Sec (23.4-35.0) H 03/16/25 03:52
Estimated Creat Clear 76 ml/min 03/30/25 05:47
Lactic Acid 1.5 mmol/L (0.7-2.0) 03/01/25 03:18
Total Bilirubin 0.6 mg/dl (0.2-1.3) 03/21/25 08:53
AST 22 U/L (17-59) 03/21/25 08:53
ALT 21 U/L (0-50) 03/21/25 08:53
Alkaline Phosphatase 136 U/L (38-126) H 03/21/25 08:53
Most recent labs reviewed.
Micro Results:
03/05/25 17:11 Anaerobic Culture - Final
Abdomen
03/05/25 11:35 Blood Culture - Final
Blood/Venous No Growth - Final Report
03/06/25 10:50 Wound Culture - Final
Abdomen Escherichia coli
Citrobacter youngae
Enterococcus faecalis
Gram Stain - Final
03/05/25 17:11 Wound Culture - Final
Abdomen Escherichia coli
Citrobacter youngae
Enterococcus faecalis
Gram Stain - Final
03/01/25 20:44 Blood Culture - Final
Blood/Venous Bacillus species,not anthracis
Gram Stain - Final
03/01/25 19:46 Blood Culture - Final
Blood/Venous No Growth - Final Report
Wound/abscess/other Cult Final 03/05/2025
Few Escherichia coli
Few Citrobacter youngae
Moderate Enterococcus faecalis
Organism 1 Escherichia coli
Organism 2 Citrobacter youngae
Organism 3 Enterococcus faecalis
E.COLI C. YOUNGAE ENTFCL
M.I.C. RX M.I.C. RX M.I.C. RX
--------- --- --------- --- --------- ---
Amoxicillin/Potas. Clavulanate <=8/4 S >16/8 R
Ampicillin <=8 S >16 R <=2 S
Ampicillin/Sulbactam <=4/2 S >16/8 R
Aztreonam <=4 S >16 R
Cefazolin <=2 S >16 R
Cefepime <=2 S
Ceftazidime >16 R
Ceftriaxone >2 R
Ertapenem <=0.5 S <=0.5 S
Ciprofloxacin <=0.25 S <=0.25 S
Gentamicin <=2 S <=2 S
Gentamicin Synergy Screen >500 R
Meropenem <=1 S <=1 S
Piperacillin/Tazobactam <=8 S <=8 S
Tetracycline <=4 S <=4 S
Tobramycin <=2 S <=2 S
Trimethoprim/Sulfamethoxazole <=2/38 S <=2/38 S
Vancomycin 2 S
Imaging:
03/24/2025 CT abdomen/pelvis: Left upper quadrant abdominal percutaneous drainage catheter with adjacent accompanying collection of fluid measuring approximately 4 cm with bubbles of air. Midline true pelvic percutaneous drainage catheter anteriorly
without discrete accompanying abnormal focal fluid collection. Somewhat more well-defined fluid collections in the approximate locations of the paracolic gutters bilaterally, right side definitely with bubbles of air as well as slight increased
perihepatic/subcapsular fluid in the right upper quadrant with bubbles of air. Small collection of fluid as compared to extraluminal air within the left lower quadrant/true pelvis in close proximity to a thickened loop of small bowel, as noted above.
03/18/2025 CT abdomen/pelvis: Interval development of predominantly gas containing extraluminal collection within the left lower quadrant which is in close proximity to both a thickened small bowel loop and the Amish pouch suture line. Findings
are nonspecific but worrisome for possible leak or focal small bowel perforation. Somewhat limited evaluation in the absence of oral contrast. Significant interval improvement of fluid collection/abscess within the left upper quadrant, right
perihepatic, and anterior right pelvis. See above. Small bilateral pleural effusions with adjacent atelectasis within both posterior lower lobes.
03/11/2025 CT abdomen/pelvis: again seen are multiple intra-abdominal fluid collections. There has been interval placement of percutaneous drainage catheters with improvement in size of both collections although significant residual fluid
collections remain, particularly within the left upper quadrant.
03/05/2025: CT Chest/abd/pel W Iv Contrast: Postoperative abdomen with developing intra-abdominal abscesses in the left upper quadrant and right upper quadrant of the abdomen, and smaller probable developing abscesses in the upper abdomen inferior
to the distal stomach and in the anterior pelvis deep to the anterior pelvic wall.
Small bilateral pleural effusions and bilateral lower lobe compressive atelectasis.
02/27/2025: CT Abd/pel W Iv And Oral Contrast: 1. Postoperative leak at the left colonic anastomosis, with extraluminal contrast. Large degree of pneumoperitoneum.2. Trace bilateral pleural effusions with associated probable atelectasis. Cannot rule
out superimposed left lower lobe pneumonia.
--- NOTE | 2025-03-30 14:41 | W.DS.TRANS ---
Addendum entered and electronically signed by KALEY Hernandes 03/31/25 13:27:
dictated #[id number]
Original Note:
DC Summary - Stage Set Designer
-
Discharge Instructions:
Discharge Diagnosis/Procedures Anastomotic leak with exploratory laparotomy for
colostomy creation
Radiology guided drainage of intraabdominal
abscess
Rapid afib
Diet As tolerated,Regular
Activity No strenuous activity
Additional Activity Do not lift over 10lbs until cleared by your
surgeon
Wound Care wound vac change every 7 days, next change due
04/01
Instructions:
Stand-Alone Forms:
Changes to Home Medications: No
Discharge Medications:
DC Medications w/original date entered in [employer]
apixaban 5 mg tablet (Eliquis) 5 mg PO BID Blood Clot Prevention/Tx 11/14/24
ascorbic acid (vitamin C) 1,000 mg tablet (Vitamin C) 1,000 mg PO DAILY Supplement 11/14/24
aspirin 81 mg tablet 81 mg PO DAILY Blood Clot Prevention/Tx 11/14/24
cyanocobalamin (vitamin B-12) 1,000 mcg tablet (Vitamin B-12) 1,000 mcg PO DAILY Supplement 11/14/24
dutasteride 0.5 mg capsule 0.5 mg PO DAILY Urinary Issue 11/14/24
famotidine 40 mg tablet 40 mg PO DAILY Gastrointestinal Issue 11/14/24
fluoxetine 20 mg capsule 20 mg PO HS Mental Health/Anxiety 11/14/24
furosemide 40 mg tablet 40 mg PO DAILY Fluid Retention/Swelling 11/14/24
metoprolol tartrate 25 mg tablet 25 mg PO HS Blood Pressure 11/14/24
metoprolol tartrate 50 mg tablet 50 mg PO DAILY Blood Pressure 11/14/24
multivitamin 1 tab PO DAILY Supplement 11/14/24
simvastatin 20 mg tablet 20 mg PO HS High Cholesterol 11/14/24
vibegron 75 mg tablet (Gemtesa) 75 mg PO HS Urinary Issue 11/14/24
oxycodone 5 mg tablet 5 mg PO Q4HPRN PRN breakthrough/severe pain #7 tabs 02/25/25
polyvinyl alcohol 1.4 % eye drops (Artificial Tears (polyvinyl alcohol)) 1 drp ophthalmic (eye) DAILY PRN dry eyes 02/27/25
Home Medication Changes
Pending Results: No
--- NOTE | 2025-03-30 15:28 | PTCARENOTE ---
Patient accepted to [facility]; report given to RN. To be transferred to [facility].
--- NOTE | 2025-03-30 15:46 | PTCARENOTE ---
Patient transferred to [facility] via stretcher with all belongings and 2 volunteers; daughter accompanied.
--- NOTE | 2025-03-30 17:17 | CM ---
SHAQUILLE Ruggiero learned that patient did work with PT/OT and heart rate was elevated for short time. Conversed with [facility], Hospitalist, and [facility] who will put him on home regiment, [facility] is fine to take patient today. Daughter aware and IMM
completed. PLAN: Acute Rehab at [facility]
--- NOTE | 2025-03-31 12:22 | WOUNDNOTE ---
WO RN note: Notified [employer] via [employer] [facility] rental vac ulta pump as of 03/30/25 and pump slat pickler (work order #[id number]). Spoke with Arlen from [facility] who will slat pickler vac pump from [facility] nursing director desk for [employer]
to slat pickler pump on Arlen's desk in [facility].
== END 2025-03-30 15:46 | DRG 907 ==
LOC: IMU 19:14
PROVIDERS: Internal Medicine; Nurse Practitioner Family; Nurse Practitioner Primary Care; Physician Assistant; Radiology Diagnostic Radiology; Radiology Vascular & Interventional Radiology; Registered Nurse; ADMITTING PHYSICIAN Surgery; CONSULT PHYSICIAN Physical Medicine & Rehabilitation; CONSULT PHYSICIAN Student in an Organized Health Care Education/Training Program; EMERGENCY PHYSICIAN Emergency Medicine; FAMILY PHYSICIAN Family Medicine; OTHER PHYSICIAN Hospitalist; OTHER PHYSICIAN Internal Medicine Critical Care Medicine; OTHER PHYSICIAN Internal Medicine Infectious Disease; OTHER PHYSICIAN Surgery
PROC: 0D1E0Z4 Bypass Large Intestine to Cutaneous, Open Approach (ICD-10-PCS; 2025-02-27)
PROC: 0D9670Z Drainage of Stomach with Drainage Device, Via Natural or Artificial Opening (ICD-10-PCS; 2025-02-27)
PROC: 30283B1 Transfusion of Nonautologous 4-Factor Prothrombin Complex Concentrate into Vein, Percutaneous Approach (ICD-10-PCS; 2025-02-27)
PROC: 0DBE0ZZ Excision of Large Intestine, Open Approach (ICD-10-PCS; 2025-02-27)
PROC: 0BP1XDZ Removal of Intraluminal Device from Trachea, External Approach (ICD-10-PCS; 2025-02-28)
PROC: 5A09357 Assistance with Respiratory Ventilation, Less than 24 Consecutive Hours, Continuous Positive Airway Pressure (ICD-10-PCS; 2025-02-28)
PROC: 02HV33Z Insertion of Infusion Device into Superior Vena Cava, Percutaneous Approach (ICD-10-PCS; 2025-03-01)
PROC: B5181ZA Fluoroscopy of Superior Vena Cava using Low Osmolar Contrast, Guidance (ICD-10-PCS; 2025-03-01)
PROC: 3E0436Z Introduction of Nutritional Substance into Central Vein, Percutaneous Approach (ICD-10-PCS; 2025-03-02)
PROC: 03HY32Z Insertion of Monitoring Device into Upper Artery, Percutaneous Approach (ICD-10-PCS; 2025-03-04)
PROC: 0DH67UZ Insertion of Feeding Device into Stomach, Via Natural or Artificial Opening (ICD-10-PCS; 2025-03-04)
PROC: 5A1945Z Respiratory Ventilation, 24-96 Consecutive Hours (ICD-10-PCS; 2025-03-04)
PROC: 4A133J1 Monitoring of Arterial Pulse, Peripheral, Percutaneous Approach (ICD-10-PCS; 2025-03-04)
PROC: 0BH17EZ Insertion of Endotracheal Airway into Trachea, Via Natural or Artificial Opening (ICD-10-PCS; 2025-03-04)
PROC: 4A133B1 Monitoring of Arterial Pressure, Peripheral, Percutaneous Approach (ICD-10-PCS; 2025-03-04)
PROC: 0W9G30Z Drainage of Peritoneal Cavity with Drainage Device, Percutaneous Approach (ICD-10-PCS; 2025-03-07)
PROC: 0W9H30Z Drainage of Retroperitoneum with Drainage Device, Percutaneous Approach (ICD-10-PCS; 2025-03-07)
PROC: 0W9J30Z Drainage of Pelvic Cavity with Drainage Device, Percutaneous Approach (ICD-10-PCS; 2025-03-11)
PROC: 0W2GX0Z Change Drainage Device in Peritoneal Cavity, External Approach (ICD-10-PCS; 2025-03-11)
DX: T81.320A Disruption or dehiscence of gastrointestinal tract anastomosis, repair, or closure, initial encounter (principal); A41.51 Sepsis due to Escherichia coli [E. coli]; K63.1 Perforation of intestine (nontraumatic); K65.1 Peritoneal abscess; R65.21 Severe sepsis with septic shock; J96.01 Acute respiratory failure with hypoxia; J96.02 Acute respiratory failure with hypercapnia; K65.0 Generalized (acute) peritonitis; I50.33 Acute on chronic diastolic (congestive) heart failure; K75.0 Abscess of liver; G92.8 Other toxic encephalopathy; J95.812 Postprocedural air leak; E87.20 Acidosis, unspecified; N17.9 Acute kidney failure, unspecified; J98.11 Atelectasis; I48.21 Permanent atrial fibrillation; F05 Delirium due to known physiological condition; I11.0 Hypertensive heart disease with heart failure; I25.10 Atherosclerotic heart disease of native coronary artery without angina pectoris; N40.0 Benign prostatic hyperplasia without lower urinary tract symptoms; E66.9 Obesity, unspecified; F41.9 Anxiety disorder, unspecified; F32.A Depression, unspecified; E11.65 Type 2 diabetes mellitus with hyperglycemia; K80.20 Calculus of gallbladder without cholecystitis without obstruction; G47.33 Obstructive sleep apnea (adult) (pediatric); K21.9 Gastro-esophageal reflux disease without esophagitis; D75.839 Thrombocytosis, unspecified; E88.09 Other disorders of plasma-protein metabolism, not elsewhere classified; K66.0 Peritoneal adhesions (postprocedural) (postinfection); I48.0 Paroxysmal atrial fibrillation; B96.89 Other specified bacterial agents as the cause of diseases classified elsewhere; D64.9 Anemia, unspecified; G47.00 Insomnia, unspecified; R63.0 Anorexia; E66.01 Morbid (severe) obesity due to excess calories; R32 Unspecified urinary incontinence; R68.0 Hypothermia, not associated with low environmental temperature; Y83.2 Surgical operation with anastomosis, bypass or graft as the cause of abnormal reaction of the patient, or of later complication, without mention of misadventure at the time of the procedure; Y92.9 Unspecified place or not applicable; Z96.652 Presence of left artificial knee joint; Z66 Do not resuscitate; Z86.718 Personal history of other venous thrombosis and embolism; Z86.711 Personal history of pulmonary embolism; Z90.49 Acquired absence of other specified parts of digestive tract; Z79.01 Long term (current) use of anticoagulants; Z79.82 Long term (current) use of aspirin; Z87.19 Personal history of other diseases of the digestive system; Z87.820 Personal history of traumatic brain injury; Z82.49 Family history of ischemic heart disease and other diseases of the circulatory system; Z80.1 Family history of malignant neoplasm of trachea, bronchus and lung; Z79.899 Other long term (current) drug therapy; Z68.33 Body mass index [BMI] 33.0-33.9, adult
CPT/HCPCS: 36600; 49406; 49423; 70450; 71045; 71260; 71275; 74177; 75984; 76000; 80048; 80053; 80202; 82040; 82248; 82805; 82962; 83036; 83605; 83690; 83735; 83880; 84100; 84443; 84478; 85025; 85027; 85045; 85610; 85730; 86850; 86900; 86901; 86920; 87040; 87070; 87071; 87075; 87077; 87147; 87186; 87205; 88307; 92526; 92610; 92612; 93005; 93306; 93970; 94002; 94003; 94640; 94660; 96361; 96365; 96375; 97112; 97116; 97163; 97167; 97530; 97535; 99152; 99285; C1729; C1769; J7168; P9045; P9047; Q9950; Q9967